=== PATIENT | female | born 1955 | race Caucasian/White ===

== ENCOUNTER → 2016-07-13 | Day surgery (SDC) | payer OTHER ==
[~2016-07-13] VITALS: Ht 157.5 cm; Wt 61.2 kg
[~2016-07-13] MED LIST: ANOR1AER IN; ATOR1TAB18 PO; CELE10TA PO; CELE20TA PO; CITA20TA4 PO; EPINEPHrine 1MG/10ML SYRINGE 1.5IN As Ordered ONE; FOLI1TAB2 PO; FOLI1TAB86 PO; GABA100C PO; GABA300C2 PO; HYDR-3363 PO; LEVALBUTEROL 1.25 MG/0.5 ML CONCENTRATE NEB As Ordered ONE; LEVALBUTEROL 1.25 MG/0.5 ML CONCENTRATE NEB INH ONE; LIDOCAINE 1% MDV 20ML VIAL As Ordered ONE; LIDOCAINE 1% SDV INJ 30 ML VIAL XX ONE; LIDOCAINE 2% INJ 100 MG/5 ML SDV (FOR ANES.) As Ordered ONE; LIDOCAINE 4% TOPICAL SOLN 50 ML BTL As Ordered ONE; LIDOCAINE VISCOUS 2% SOLN 15ML UDC As Ordered ONE; LIDOCAINE VISCOUS 2% SOLN 15ML UDC MT ONE; LR 1,000 ML IV SCH; METOCLOPRAMIDE INJ 10MG/2ML VIAL (J2765) As Ordered ONE; MIDAZOLAM INJ 2 MG/2 ML VIAL (J2250) As Ordered ONE; MULT1CHW26 PO; ONDANSETRON 4MG/2ML VIAL (J2405) As Ordered ONE; ONDANSETRON 4MG/2ML VIAL (J2405) IV PRN; PROPOFOL 200 MG/20 ML VIAL As Ordered ONE; RISP0.5T16 PO; RISP2TAB30 PO; ROCURONIUM BROMIDE 50 MG/5 ML VIAL As Ordered ONE; SUGAMMADEX SODIUM 500 MG/5 ML VIAL (BRIDION) As Ordered ONE; THIA100TA PO; THROMBIN SOLN 20,000 UNITS KIT As Ordered ONE; TRAZ100T2 PO; TRAZ25TA PO; TRAZO50TA PO; VITA100T2 PO; VITMTA OR; dexameTHASONE 4 MG/ML 1ML VIAL (J1100) As Ordered ONE; fentaNYL 100 MCG/2 ML INJECTION (J3010) IV PRN; fentaNYL 250 MCG/5 ML INJECTION (J3010) As Ordered ONE
--- NOTE | 2016-07-13 15:23 | REP ---
Chest x-ray: Portable single view. History: Postoperative evaluation. Comparison study April 20, 2016. Findings: Portable chest x-ray demonstrates a mass in the right suprahilar region unchanged. EKG electrodes are noted. There is no evidence of pneumothorax or hydrothorax. Mitral annular calcification is noted. Heart is not enlarged. Impression: Right suprahilar mass unchanged. No complication is identified. Signed by Jefry Chau MD 07/13/2016 04:23 P
[2016-07-13 16:19] VITALS: BP 135/62
--- NOTE | 2016-07-13 16:20 | RO ---
DATE OF PROCEDURE: 07/13/2016 PREPROCEDURE DIAGNOSIS: Right upper lobe mass, unknown etiology. POSTPROCEDURE DIAGNOSIS: Right upper lobe mass, unknown etiology. PROCEDURE: Electromagnetic Navigation Bronchoscopy (ENB) with fine-needle aspirate, triple brush, single brush, transbronchial biopsies, bronchoalveolar lavage (BAL) and fiducial marker placement. SURGEON: Dr. Guillermo Hardy INSURANCE SALES ASSOCIATE: ANESTHESIA: General. DESCRIPTION OF PROCEDURE: Procedure explained and consent obtained. Ms. Simmons was intubated for the procedure and pain and sedation was handled by anesthesia. The bronchoscope was introduced through the endotracheal tube into the trachea. The right and left lungs were examined. There was a moderate amount of pitting and a small amount of thick, clear secretions which were evacuated. There were changes suggestive of bronchiectasis. Automatic registration was then done. Following this, the ENB probe was used to locate the right upper lobe lesion. The position was confirmed by fluoroscopy. Fine-needle aspirate was then done of the lesion. This was followed by a single brushing, then five transbronchial biopsies, then a triple brushing, then fiducial marker placement and finally a BAL. After assuring visual hemostasis, the bronchoscope was withdrawn. Post-procedure chest x-ray pending. FINDINGS: 1. Moderate amount of pitting. 2. Changes suggestive of bronchiectasis. SPECIMENS: 1. Right upper lobe fine-needle aspirate sent to cytology. 2. Right upper lobe brushing, both single and triple sent to cytology. 3. Five transbronchial biopsies sent to pathology. 4. BAL sent to cytology. [facility]
== END ==
LOC: M SDC 11:29
PROVIDERS: ATTEND Internal Medicine Pulmonary Disease
DX: R91.8 Other nonspecific abnormal finding of lung field (principal); R91.1 Solitary pulmonary nodule; J44.9 Chronic obstructive pulmonary disease, unspecified; R06.00 Dyspnea, unspecified; F32.9 Major depressive disorder, single episode, unspecified; G62.9 Polyneuropathy, unspecified; I10 Essential (primary) hypertension; F20.9 Schizophrenia, unspecified; K74.60 Unspecified cirrhosis of liver; G47.9 Sleep disorder, unspecified; F17.218 Nicotine dependence, cigarettes, with other nicotine-induced disorders; Z79.899 Other long term (current) drug therapy; Z91.041 Radiographic dye allergy status
CPT/HCPCS: 31623; 31624; 31625; 31626; 31627; 31629; 71010; 76000; 88104; 88108; 88172; 88173; 88305; 88313; A4648; J1100; J2250; J2405; J2765; J3010

== ENCOUNTER → 2016-07-14 | Outpatient (REF) | payer OTHER ==
[~2016-07-14] MED LIST changes: -EPINEPHrine 1MG/10ML SYRINGE 1.5IN As Ordered ONE; -LEVALBUTEROL 1.25 MG/0.5 ML CONCENTRATE NEB As Ordered ONE; -LEVALBUTEROL 1.25 MG/0.5 ML CONCENTRATE NEB INH ONE; -LIDOCAINE 1% MDV 20ML VIAL As Ordered ONE; -LIDOCAINE 1% SDV INJ 30 ML VIAL XX ONE; -LIDOCAINE 2% INJ 100 MG/5 ML SDV (FOR ANES.) As Ordered ONE; -LIDOCAINE 4% TOPICAL SOLN 50 ML BTL As Ordered ONE; -LIDOCAINE VISCOUS 2% SOLN 15ML UDC As Ordered ONE; -LIDOCAINE VISCOUS 2% SOLN 15ML UDC MT ONE; -LR 1,000 ML IV SCH; -METOCLOPRAMIDE INJ 10MG/2ML VIAL (J2765) As Ordered ONE; -MIDAZOLAM INJ 2 MG/2 ML VIAL (J2250) As Ordered ONE; -ONDANSETRON 4MG/2ML VIAL (J2405) As Ordered ONE; -ONDANSETRON 4MG/2ML VIAL (J2405) IV PRN; -PROPOFOL 200 MG/20 ML VIAL As Ordered ONE; -ROCURONIUM BROMIDE 50 MG/5 ML VIAL As Ordered ONE; -SUGAMMADEX SODIUM 500 MG/5 ML VIAL (BRIDION) As Ordered ONE; -THROMBIN SOLN 20,000 UNITS KIT As Ordered ONE; -dexameTHASONE 4 MG/ML 1ML VIAL (J1100) As Ordered ONE; -fentaNYL 100 MCG/2 ML INJECTION (J3010) IV PRN; -fentaNYL 250 MCG/5 ML INJECTION (J3010) As Ordered ONE
== END ==
LOC: M LAB REF 12:15
PROVIDERS: ATTEND Physician Assistant
DX: R30.0 Dysuria (principal)

== ENCOUNTER → 2016-07-15 | Outpatient (REF) | payer OTHER ==
[2016-07-15 12:36] LABS: ANION GAP 7 MEQ/L (8-16); BLOOD UREA NITROGEN 10 MG/DL (7-18); CALCIUM LEVEL 9.6 MG/DL (8.5-10.1); CARBON DIOXIDE LEVEL 32 MEQ/L (21-32); CHLORIDE LEVEL 99 MEQ/L (98-107); CREATININE FOR GFR 0.74 MG/DL (0.55-1.02); GLOMERULAR FILTRATION RATE > 60.0 (>51); GLUCOSE, FASTING 87 MG/DL (70-105); POTASSIUM SERUM 4.5 MEQ/L (3.5-5.1); SODIUM LEVEL 138 MEQ/L (136-145)
== END ==
LOC: M LABDRWAD 12:13
PROVIDERS: ATTEND Physician Assistant Medical
DX: R73.9 Hyperglycemia, unspecified (principal)

== ENCOUNTER → 2016-07-28 | Outpatient (REF) | payer OTHER ==
[~2016-07-28] MED LIST changes: +METF500T PO
[2016-07-28 18:21] LABS: INR 0.96
== END ==
LOC: M LAB REF 16:33
PROVIDERS: ATTEND Internal Medicine Medical Oncology
DX: C34.90 Malignant neoplasm of unspecified part of unspecified bronchus or lung (principal)

== ENCOUNTER → 2016-08-02 | Outpatient (CLI) | payer OTHER ==
--- NOTE | 2016-08-03 08:04 | REP ---
Clinical: Neoplasm. Comparison: 03/04/2016. Findings: A multilobulated right upper lobe mass lesion is unchanged in appearance and size when compared to 03/04/2016 again measuring approximately 3.2 cm maximal diameter (images 20 - 29). Minimal fibroatelectatic changes primarily involving the right middle lobe and lingula remains stable. No new acute pulmonary parenchymal consolidation, nodule or mass lesion appreciated. No pleural effusion/reaction or pneumothorax. Tracheobronchial tree is patent. Mediastinum is stable and again demonstrates atherosclerotic changes to the thoracic aorta and coronary arteries without aortic aneurysm, cardiomegaly or pericardial effusion. Limited upper abdomen demonstrates normal bilateral adrenal glands. Impression: 3.2 cm lobulated mass in the right upper lobe unchanged compared to 03/04/2016. No new acute mediastinal or pleuroparenchymal process appreciated. Signed by Reji Dupree MD 08/03/2016 07:56 A
== END ==
LOC: M RAD 17:59
PROVIDERS: ATTEND Thoracic Surgery (Cardiothoracic Vascular Surgery)
DX: C34.11 Malignant neoplasm of upper lobe, right bronchus or lung (principal)

== ENCOUNTER → 2016-08-03 | Outpatient (CLI) | payer OTHER ==
[2016-08-03 11:26] LABS: ABG BASE EXCESS 0.8 (-2.0-2.0); ABG HCO3 25.1 MEQ/L (22.0-26.0); ABG PARTIAL PRESSURE O2 75.1 mmHg (75.0-100.0); ABG STANDARD HCO3 25.1 MEQ/L (22.0-26.0); ABG TOTAL CO2 26.3 MEQ/L (22.0-29.0); ABG pH (ARTERIAL) 7.426 UNITS (7.350-7.450)
[2016-08-03 12:07] LABS: INR 1.07
[2016-08-03 12:09] LABS: ANION GAP 7 MEQ/L (8-16); BLOOD UREA NITROGEN 9 MG/DL (7-18); CARBON DIOXIDE LEVEL 29 MEQ/L (21-32); CHLORIDE LEVEL 100 MEQ/L (98-107); CREATININE FOR GFR 0.63 MG/DL (0.55-1.02); GLOMERULAR FILTRATION RATE > 60.0 (>51); GLUCOSE, FASTING 93 MG/DL (70-105); POTASSIUM SERUM 4.4 MEQ/L (3.5-5.1); SODIUM LEVEL 136 MEQ/L (136-145)
[2016-08-03 12:15] LABS: MEAN CORPUSCULAR HEMOGLOBIN 31.7 pg (27.0-33.0); MEAN CORPUSCULAR HGB CONC 33.9 g/dl (32.0-36.5); MEAN CORPUSCULAR VOLUME 93.4 fl (80.0-96.0); RED CELL DISTRIBUTION WIDTH 13.1 % (11.5-14.5); WHITE BLOOD COUNT 14.2 K/mm3 (4.0-10.0)
--- NOTE | 2016-08-03 12:40 | REP ---
Clinical: Malignant neoplasm. Technique: PA and lateral. Comparison: 07/13/2016. Findings: A small biopsy clip is identified at the site of right suprahilar upper lobe mass which is unchanged. The remainder of lung garcia are clear. No new acute consolidation, effusion or pneumothorax. Cardiac silhouette is normal. Skeletal structures demonstrate age-related changes. Impression: Right upper lobe/suprahilar mass unchanged. Small adjacent clips suggest recent biopsy. Signed by Reji Dupree MD 08/03/2016 12:31 P
--- NOTE | 2016-08-03 22:25 | ECGEPIP ---
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 Electronically Signed On 08-03-2016 22:25:12 EST by Farshad Goncalves
== END ==
LOC: M LAB 10:43
PROVIDERS: ATTEND Thoracic Surgery (Cardiothoracic Vascular Surgery)
DX: Z01.818 Encounter for other preprocedural examination (principal); C34.11 Malignant neoplasm of upper lobe, right bronchus or lung

== ENCOUNTER → 2016-08-04 | Day surgery (SDC) | payer OTHER ==
[~2016-08-04] VITALS: Ht 154.9 cm; Wt 68.0 kg
[~2016-08-04] MED LIST changes: +BUPIVACAINE LIPOSOME/PF 1.3% 20 ML VIAL (13.3MG/ML)(EXPAREL) As Ordered ONE; +BUPIVACAINE LIPOSOME/PF 1.3% 20 ML VIAL (13.3MG/ML)(EXPAREL) XX ONE; +CETACAINE SPRAY 20GM (FLOOR STOCK) As Ordered ONE; +EPINEPHrine 1MG/10ML SYRINGE 1.5IN As Ordered ONE; +HYDROmorphone HCL 1 MG/ML SYRINGE (J1170) IV PRN; +LIDOCAINE 2% INJ 100 MG/5 ML SDV (FOR ANES.) As Ordered ONE; +LR 1,000 ML IV SCH; +MIDAZOLAM INJ 2 MG/2 ML VIAL (J2250) As Ordered ONE; +MUPIROCIN 2% OINT 22 GM TUBE TOP ONE; +PERCOCET 5MG/325MG TAB PO PRN; +PHENYLephrine HCL 500 MCG/5 ML (100MCG/ML) SYRINGE (J2370) As Ordered ONE; +PROPOFOL 200 MG/20 ML VIAL As Ordered ONE; +ROCURONIUM BROMIDE 50 MG/5 ML VIAL As Ordered ONE; +SUGAMMADEX SODIUM 500 MG/5 ML VIAL (BRIDION) As Ordered ONE; +THROMBIN SOLN 20,000 UNITS KIT As Ordered ONE; +THROMBIN SOLN 20,000 UNITS KIT TOP ONE; +ceFAZolin SOD 1 GM in D5W MINI-BAG PLUS 50 ML IV ONE; +dexameTHASONE 4 MG/ML 1ML VIAL (J1100) As Ordered ONE; +ePHEDrine SULFATE 25 MG/5 ML(5MG/ML) SYRINGE As Ordered ONE; +fentaNYL 100 MCG/2 ML INJECTION (J3010) IV PRN; +fentaNYL 250 MCG/5 ML INJECTION (J3010) As Ordered ONE
--- NOTE | 2016-08-04 10:43 | REP ---
Clinical: Postoperative evaluation. Comparison: 08/03/2016. Findings: A single clip is again identified in the right suprahilar region adjacent to known mass. Mediastinum and cardiac silhouette are normal. Lung garcia are otherwise clear/stable. No effusion or pneumothorax. Skeletal structures intact. Impression: Stable chest x-ray. No effusion or pneumothorax. Signed by Reji Dupree MD 08/04/2016 10:35 A
[2016-08-04 11:45] VITALS: BP 132/77
--- NOTE | 2016-08-05 04:42 | RO ---
DATE OF PROCEDURE: 07/15/2016 PREOPERATIVE DIAGNOSIS: Small cell carcinoma right upper lobe, mediastinal lymphadenopathy. POSTOPERATIVE DIAGNOSIS: Small cell carcinoma right upper lobe, mediastinal lymphadenopathy. Final pathology pending. PROCEDURE: Mediastinoscopy, bronchoscopy. SURGEON: Akbar Mullins MD RAND BUTTING MACHINE OPERATOR: ANESTHESIA: FINDINGS: There were quite a number of nodes in the mediastinum, more than I had expected judging from the CAT scan. These were copiously sampled and sent for pathological examination. Upon entry, a large vessel was entered. It was deeper than what I thought the external jugular should be. I am not sure whether it was the internal jugular or not, but nonetheless it was repaired and sewn with a #5-0 Prolene suture. Bronchoscopy revealed normal branching of the tracheobronchial tree. There were no endobronchial lesions. DESCRIPTION OF PROCEDURE: Under satisfactory general anesthesia and single lumen tube endotracheal intubation, the bronchoscope was placed down the tracheobronchial tree. Each segment and subsegment were thoroughly inspected and suctioned aspirated. There were no endobronchial lesions either on the left or right side. The scope was withdrawn and the patient was prepped and draped in the usual sterile fashion. A standard mediastinoscopy incision was done in a suprasternal notch with that undertaken. Subcutaneous tissue was divided. I could feel the trachea deep within the neck as the patient is obese. Dissection was continued with the electrocautery and with blunt dissection. During the dissection with the electrocautery, a large vessel was entered with copious amounts of bleeding, which could be controlled by use of finger pressure. After defining the problem, I thought this probably represented the internal jugular vein. A #5-0 Prolene suture was used to control the tip of the rent in the vein and then with intermittent suction and suture throws the vein could be closed with running #5-0 Prolene suture. The mediastinal dissection was then again undertaken so that I could finally get to the pretracheal fascia. was placed along the pretracheal fascia and on the artery scalp. The scope was then placed. The above findings were noted. There were a lot more nodes that I thought there were going to be. They look anthracotic, however. A copious amount of noelle was taken up and down the trachea. These were sent for pathological examination, including a portion for frozen section, which did not show any tumor. The remainder of the specimens were sent for permanent section. After achieving adequate hemostasis with thrombin and Gelfoam and electrocautery, the strap muscles were closed with running #3-0 Vicryl suture, the subcutaneous tissues were closed with the same and the skin with running #3-0 Monopril subcuticular suture. The patient tolerated the procedure well and left the operating room in satisfactory condition. Estimated blood loss was probably 25-35 mL.
== END ==
LOC: M SDC 07:06
PROVIDERS: ATTEND Thoracic Surgery (Cardiothoracic Vascular Surgery)
DX: C34.11 Malignant neoplasm of upper lobe, right bronchus or lung (principal); R59.0 Localized enlarged lymph nodes; I97.52 Accidental puncture and laceration of a circulatory system organ or structure during other procedure; I10 Essential (primary) hypertension; J44.9 Chronic obstructive pulmonary disease, unspecified; F32.9 Major depressive disorder, single episode, unspecified; G62.9 Polyneuropathy, unspecified; N39.3 Stress incontinence (female) (male); M79.606 Pain in leg, unspecified; R42 Dizziness and giddiness; F20.0 Paranoid schizophrenia; F17.210 Nicotine dependence, cigarettes, uncomplicated; Z79.899 Other long term (current) drug therapy; Z79.51 Long term (current) use of inhaled steroids; Z79.84 Long term (current) use of oral hypoglycemic drugs
CPT/HCPCS: 31622; 36415; 39402; 71010; 86850; 86900; 86901; 88305; 88342; J0690; J1100; J2250; J2370; J3010

== ENCOUNTER → 2016-08-09 | Outpatient (CLI) | payer OTHER ==
[~2016-08-09] MED LIST changes: -BUPIVACAINE LIPOSOME/PF 1.3% 20 ML VIAL (13.3MG/ML)(EXPAREL) As Ordered ONE; -BUPIVACAINE LIPOSOME/PF 1.3% 20 ML VIAL (13.3MG/ML)(EXPAREL) XX ONE; -CETACAINE SPRAY 20GM (FLOOR STOCK) As Ordered ONE; -EPINEPHrine 1MG/10ML SYRINGE 1.5IN As Ordered ONE; -HYDROmorphone HCL 1 MG/ML SYRINGE (J1170) IV PRN; -LIDOCAINE 2% INJ 100 MG/5 ML SDV (FOR ANES.) As Ordered ONE; -LR 1,000 ML IV SCH; -MIDAZOLAM INJ 2 MG/2 ML VIAL (J2250) As Ordered ONE; -MUPIROCIN 2% OINT 22 GM TUBE TOP ONE; -PERCOCET 5MG/325MG TAB PO PRN; -PHENYLephrine HCL 500 MCG/5 ML (100MCG/ML) SYRINGE (J2370) As Ordered ONE; -PROPOFOL 200 MG/20 ML VIAL As Ordered ONE; -ROCURONIUM BROMIDE 50 MG/5 ML VIAL As Ordered ONE; -SUGAMMADEX SODIUM 500 MG/5 ML VIAL (BRIDION) As Ordered ONE; -THROMBIN SOLN 20,000 UNITS KIT As Ordered ONE; -THROMBIN SOLN 20,000 UNITS KIT TOP ONE; -ceFAZolin SOD 1 GM in D5W MINI-BAG PLUS 50 ML IV ONE; -dexameTHASONE 4 MG/ML 1ML VIAL (J1100) As Ordered ONE; -ePHEDrine SULFATE 25 MG/5 ML(5MG/ML) SYRINGE As Ordered ONE; -fentaNYL 100 MCG/2 ML INJECTION (J3010) IV PRN; -fentaNYL 250 MCG/5 ML INJECTION (J3010) As Ordered ONE
--- NOTE | 2016-08-09 09:13 | REP ---
TWO-VIEW CHEST: Two views of the chest are performed and compared to a prior study of 08/04/2016 as well as other prior exams. The right upper lobe mass is again see with adjacent metallic clip. No new parenchymal opacities are seen. The heart is normal in size and there is some calcification of the thoracic aorta. The mediastinal silhouette is unchanged. There are degenerative changes of the spine. There is no pneumothorax or pleural effusion identified. IMPRESSION: Stable exam. Signed by Logan Murphy MD 08/09/2016 04:54 P
== END ==
LOC: M SMT 08:21
PROVIDERS: ATTEND Thoracic Surgery (Cardiothoracic Vascular Surgery)
DX: C34.11 Malignant neoplasm of upper lobe, right bronchus or lung (principal)

== ENCOUNTER → 2016-08-18 | Day surgery (SDC) | payer OTHER ==
[~2016-08-18] MED LIST changes: +BUPIVACAINE LIPOSOME/PF 1.3% 20 ML VIAL (13.3MG/ML)(EXPAREL) As Ordered ONE; +HEPARIN SOD (PORCINE) 5000 UNITS/ML VIAL As Ordered ONE; +LIDOCAINE 1% MDV 20ML VIAL As Ordered ONE; +MIDAZOLAM INJ 2 MG/2 ML VIAL (J2250) As Ordered ONE; +MUPIROCIN 2% OINT 22 GM TUBE TOP ONE; +PHENYLephrine HCL 500 MCG/5 ML (100MCG/ML) SYRINGE (J2370) As Ordered ONE; +PROPOFOL 200 MG/20 ML VIAL As Ordered ONE; +ceFAZolin SOD 1 GM in D5W MINI-BAG PLUS 50 ML IV ONE; +ePHEDrine SULFATE 25 MG/5 ML(5MG/ML) SYRINGE As Ordered ONE; +fentaNYL 100 MCG/2 ML INJECTION (J3010) As Ordered ONE
--- NOTE | 2016-08-18 09:58 | REP ---
Chest x-ray: Two views. History: Saheio-K-Lcig. Comparison chest x-ray August 09, 2016. Findings: There is a mass in the right upper lobe of the lung measuring approximately 3.4 cm again noted. There is a needle biopsy marker clip at the inferior aspect of this mass as before. There are two clips at the suprasternal notch as well suggesting previous mediastinoscopy. The lungs are otherwise well inflated and clear. Heart is not enlarged. There are mild degenerative changes in the thoracic spine. There are subtle posttraumatic deformities of the left ribcage unchanged. The thoracic aorta is calcific. Impression: Right upper lobe lung mass. Surgical clips. No other evidence of active disease. Signed by Jefry Chau MD 08/18/2016 12:25 P
[2016-08-18 12:45] VITALS: BP 135/75
--- NOTE | 2016-08-18 13:01 | REP ---
C-ARM VIEWS OF THE CHEST: Two C-arm views of the chest are performed. Left subclavian central venous catheter is noted. 38 seconds of fluoroscopy time was utilized. Signed by Logan Murphy MD 08/19/2016 04:36 P
--- NOTE | 2016-08-18 13:08 | REP ---
CHEST, ONE VIEW: HISTORY: Bukvuj-A-Dqyn insertion. COMPARISON: 9:26 a.m., 08/18/2016. A 3.4 cm parenchymal mass is present in the right upper lobe. The left lung is clear. The heart is normal in size. A Nafrwg-J-Lqqy catheter is present in the superior vena cava. There is no pneumothorax. IMPRESSION: The patient is status post Aqxgwq-N-Qpsg catheter placement. There is no pneumothorax. Signed by Berto Hough MD 08/18/2016 01:21 P
--- NOTE | 2016-08-19 10:42 | RO ---
DATE OF PROCEDURE: 08/18/2016 PREPROCEDURE DIAGNOSIS: Small cell carcinoma, need for vascular access for chemotherapy. POSTPROCEDURE DIAGNOSIS: Small cell carcinoma, need for vascular access for chemotherapy. PROCEDURE: Insertion of left subclavian Vbvnxi-A-Ocgf. SURGEON: Dr. Akbar Mullins WAGE CONCILIATOR: ANESTHESIA: FINDINGS: All contours were smooth at the end of the procedure. Catheter was placed with fluoroscopic control at the junction of the superior vena cava and the right atrium. PROCEDURE: Under satisfactory MAC anesthesia, the patient was prepped and draped in the usual sterile fashion. The left infraclavicular fossa was infiltrated with Exparel. The subclavian vein was found on the first pass and a wire was placed. Wire placement was confirmed with fluoroscopy. An incision approximately 2 cm below the infraclavicular fossa was then made for the port. This was cut and carried into the subcutaneous tissue. A subcutaneous pocket was then constructed by use of both sharp electrocautery and blunt dissection. The wire site was then dilated and a peel away introducer was placed. The catheter was placed low numbers down into the right atrium. A tunnel was then created and this was pulled through the tunnel. The catheter was then positioned under fluoroscopic control. The catheter was cut to an appropriate size, collar was placed and connected to the Aebujs-S-Xxcl. The Eurrmk-W-Vwim was aspirated and flushed without difficulty. The Dafmrg-O-Ofsh was then secured to the chest wall with two #2-0 silk sutures. Final films showed all contours to be smooth and the catheter in appropriate position. The incision was closed with running #3-0 Vicryl for the subcutaneous tissue and running #4-0 Monocryl suture for the skin subcuticular. The patient tolerated the procedure well and left the operating room in satisfactory condition for the recovery room. SHALA
== END ==
LOC: M SDC 08:46
PROVIDERS: ATTEND Thoracic Surgery (Cardiothoracic Vascular Surgery)
DX: C34.11 Malignant neoplasm of upper lobe, right bronchus or lung (principal); J44.9 Chronic obstructive pulmonary disease, unspecified; F20.0 Paranoid schizophrenia; F32.9 Major depressive disorder, single episode, unspecified; I10 Essential (primary) hypertension; G62.9 Polyneuropathy, unspecified; K76.0 Fatty (change of) liver, not elsewhere classified; E78.00 Pure hypercholesterolemia, unspecified; E11.9 Type 2 diabetes mellitus without complications; M79.669 Pain in unspecified lower leg; M19.90 Unspecified osteoarthritis, unspecified site; N39.3 Stress incontinence (female) (male); F17.218 Nicotine dependence, cigarettes, with other nicotine-induced disorders; Z79.899 Other long term (current) drug therapy; Z79.51 Long term (current) use of inhaled steroids; Z79.84 Long term (current) use of oral hypoglycemic drugs
CPT/HCPCS: 36415; 36561; 71010; 71020; 76000; 81001; 86850; 86900; 86901; 99156; 99157; C1788; J0690; J2250; J2370; J3010

== ENCOUNTER → 2016-09-08 | Outpatient (CLI) | payer OTHER ==
[~2016-09-08] MED LIST changes: -BUPIVACAINE LIPOSOME/PF 1.3% 20 ML VIAL (13.3MG/ML)(EXPAREL) As Ordered ONE; -HEPARIN SOD (PORCINE) 5000 UNITS/ML VIAL As Ordered ONE; -LIDOCAINE 1% MDV 20ML VIAL As Ordered ONE; -MIDAZOLAM INJ 2 MG/2 ML VIAL (J2250) As Ordered ONE; -MUPIROCIN 2% OINT 22 GM TUBE TOP ONE; -PHENYLephrine HCL 500 MCG/5 ML (100MCG/ML) SYRINGE (J2370) As Ordered ONE; -PROPOFOL 200 MG/20 ML VIAL As Ordered ONE; -ceFAZolin SOD 1 GM in D5W MINI-BAG PLUS 50 ML IV ONE; -ePHEDrine SULFATE 25 MG/5 ML(5MG/ML) SYRINGE As Ordered ONE; -fentaNYL 100 MCG/2 ML INJECTION (J3010) As Ordered ONE
--- NOTE | 2016-09-08 09:59 | REP ---
Clinical: Alcoholic liver disease. Technique: Real time aguilera scale and color evaluation using curved array transducer. Findings: The liver is increased in echogenicity with poor through transmission suggesting fatty infiltration. Subcentimeter cyst in the left lobe is identified. No further focal hepatic lesions are appreciated. Limited evaluation the pancreas is unremarkable. The gallbladder demonstrates normal wall thickness and no pericholecystic fluid with suggestions for adenomyomatosis and 5 mm gallstone versus polyp at the fundus. No biliary ductal dilatation is appreciated and the common bile duct measures 6.2 mm diameter. Right kidney is normal in reniform shape and echogenicity without hydronephrosis and measures 12.5 x 4.5 x 4.3 cm. No ascites. Impression: 1. Fatty infiltration to the liver with subcentimeter simple cyst in the left lobe. 2. Gallbladder demonstrates benign adenomyomatosis and 5 mm gallstone versus polyp at the fundus without evidence for acute cholecystitis or biliary ductal dilatation. Signed by Reji Dupree MD 09/08/2016 09:51 A
== END ==
LOC: M RAD 07:47
PROVIDERS: ATTEND Family Medicine
DX: K70.9 Alcoholic liver disease, unspecified (principal); K80.20 Calculus of gallbladder without cholecystitis without obstruction

== ENCOUNTER → 2016-09-20 | Outpatient (CLI) | payer OTHER ==
--- NOTE | 2016-09-20 16:30 | REP ---
CT of the chest without IV contrast: Comparisons are the chest CT dated 08/02 2016 and PET scan dated 06/02/2016. The patient has a known right upper lobe mass. The mass has significantly decreased in size, today maximally measuring 1.8 cm (previously 3.2 cm. There are no other lung masses. There are no acute infiltrates or effusions. There is no mediastinal adenopathy. There is no axillary adenopathy. This is unchanged. In the absence of IV contrast the study is insensitive for hilar adenopathy. There is an indwelling central venous catheter entering from the left with the tip in the superior vena cava in satisfactory location as an interval change. The thoracic aorta is unremarkable. Cardiac size is normal. There is no pericardial effusion. The visualized upper abdominal contents are unremarkable. The adrenals are not visualized in entirety, however the visualized portions of the adrenals are unremarkable. Impression: The patient's known right upper lobe mass has significantly decreased in size. There is no adenopathy. No infiltrates or effusions. No other masses or nodules. There is a new indwelling central venous catheter. Signed by Logan Bishop MD 09/20/2016 04:21 P
== END ==
LOC: M RAD 15:40
PROVIDERS: ATTEND Nurse Practitioner Family
DX: C34.90 Malignant neoplasm of unspecified part of unspecified bronchus or lung (principal)

== ENCOUNTER 2016-10-24 11:39 | Emergency (ER) | payer OTHER ==
[~2016-10-24] VITALS: Ht 157.5 cm; Wt 60.8 kg
[2016-10-24] MEDS ORDERED: NS 500 ML IV ONE (12:15)
[2016-10-24 12:32] LABS: BASO # 0.1 K/mm3 (0.0-0.2); BASO % 0.4 % (0.0-1.0); EOS % 0.2 % (0.0-3.0); LARGE UNSTAINED CELL # 0.3 K/mm3 (0.0-0.4); LARGE UNSTAINED CELL % 1.7 % (0.0-4.0); LYMPH # 2.9 K/mm3 (1.5-4.5); LYMPH % 14.6 % (24.0-44.0); MEAN CORPUSCULAR HEMOGLOBIN 31.3 pg (27.0-33.0); MEAN CORPUSCULAR HGB CONC 32.5 g/dl (32.0-36.5); MEAN CORPUSCULAR VOLUME 96.1 fl (80.0-96.0); MONO % 5.5 % (0.0-5.0); NEUTROPHILS # 13.9 K/mm3 (1.8-7.7); NEUTROPHILS % 77.7 % (36.0-66.0); PLATELET COUNT, AUTOMATED 230 k/mm3 (150-450); RED CELL DISTRIBUTION WIDTH 19.8 % (11.5-14.5); WHITE BLOOD COUNT 17.8 K/mm3 (4.0-10.0)
--- NOTE | 2016-10-24 13:40 | REP ---
CT BRAIN WITHOUT CONTRAST: CT brain is performed without IV contrast. Comparison 03/04/2016. There is mild atrophy. There is no midline shift. There are mild patchy low density areas in the periventricular white matter bilaterally as seen on prior study compatible with mild chronic small vessel ischemic changes. I see no acute intracranial hemorrhage. There is no extra-axial fluid collection. No skull fracture is seen. There are vascular calcifications in the carotid siphons. IMPRESSION: Chronic changes appear stable. No evidence of acute bleed or fracture. Signed by Logan Murphy MD 10/24/2016 07:57 P
[2016-10-24 13:50] LABS: ALBUMIN 3.6 GM/DL (3.2-5.2); ALKALINE PHOSPHATASE 152 U/L (45-117); ALT/SGPT 18 U/L (12-78); ANION GAP 10 MEQ/L (8-16); AST/SGOT 11 U/L (15-37); BILIRUBIN,DIRECT 0.2 MG/DL (0.0-0.2); BILIRUBIN,TOTAL 0.5 MG/DL (0.2-1.0); BLOOD UREA NITROGEN 7 MG/DL (7-18); CALCIUM LEVEL 8.4 MG/DL (8.5-10.1); CARBON DIOXIDE LEVEL 25 MEQ/L (21-32); CHLORIDE LEVEL 100 MEQ/L (98-107); CREATININE FOR GFR 0.57 MG/DL (0.55-1.02); GLOMERULAR FILTRATION RATE > 60.0 (>51); GLUCOSE, FASTING 104 MG/DL (70-105); POTASSIUM SERUM 3.8 MEQ/L (3.5-5.1); SODIUM LEVEL 135 MEQ/L (136-145); TOTAL PROTEIN 7.2 GM/DL (6.4-8.2)
--- NOTE | 2016-10-24 13:57 | REP ---
CHEST, TWO VIEWS: Two views of the chest are performed and compared to prior study of 08/18/2016. Previously noted right upper lobe mass has decreased in size. There is no acute infiltrate. Heart is normal in size. There is calcification of the thoracic aorta. Left central venous catheter is seen with the tip in the superior vena cava. There are degenerative changes of the spine. IMPRESSION: No acute infiltrate. Previously noted right upper lobe mass has decreased in size. Signed by Logan Murphy MD 10/24/2016 07:57 P
[2016-10-24 14:34] LABS: METHADONE URINE NEGATIVE (NEGATIVE)
[2016-10-24 14:44] VITALS: BP 136/70
--- NOTE | 2016-10-26 10:42 | ECGEPIP ---
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
== END 2016-10-24 15:17 | disposition home or self-care (01) ==
LOC: M ED 12:40
DX: R55 Syncope and collapse (principal); G43.909 Migraine, unspecified, not intractable, without status migrainosus; C34.90 Malignant neoplasm of unspecified part of unspecified bronchus or lung; F17.200 Nicotine dependence, unspecified, uncomplicated; Z79.899 Other long term (current) drug therapy

== ENCOUNTER → 2016-11-03 | Outpatient (CLI) | payer OTHER ==
--- NOTE | 2016-11-03 13:57 | REP ---
Clinical: Small cell lung cancer for restaging. Comparison: 09/20/2016. Findings: The patient is noted to be status post subsequent chemotherapy after in the comparison study. A surgical clip is identified adjacent to a right upper lobe bronchus just below the noted area of mass lesion and current examination demonstrates decreased soft tissue measuring at most 10.4 x 7.0 mm and previously measured at approximately 15 x 9 mm at the same level. The remainder of the lung garcia are well-aerated, symmetric and clear minimal scarring to the medial right middle lobe is again identified. No new area of consolidation, nodule or mass lesion is appreciated. No pleural effusion/reaction or pneumothorax. The tracheobronchial tree is patent. The mediastinum is stable with atherosclerotic changes to the thoracic aorta and coronary arteries again noted. There is no cardiomegaly or pericardial effusion. Wuvved-P-Cphn identified in the left anterior chest wall extends into the SVC. No obvious adenopathy is appreciated. The surrounding musculoskeletal structures demonstrate age-related degenerative changes. Limited evaluation of the upper abdomen suggests left renal cysts. Impression: 1. Improved appearance to the residual soft tissue at the site of prior intervention in the right upper lobe. No new acute mass, nodule or consolidation. No obvious adenopathy. No effusion. 2. Suspected left renal cysts. Signed by Reji Dupree MD 11/03/2016 01:48 P
== END ==
LOC: M RAD 12:53
PROVIDERS: ATTEND Nurse Practitioner Family
DX: C34.90 Malignant neoplasm of unspecified part of unspecified bronchus or lung (principal)

== ENCOUNTER → 2016-11-29 | Outpatient (CLI) | payer MEDICAID | LOC: M RAD 14:50 | PROVIDERS: ATTEND Radiology Radiation Oncology | DX: C34.11 Malignant neoplasm of upper lobe, right bronchus or lung (principal) | CPT/HCPCS: 70553; A9576 ==

== ENCOUNTER → 2016-11-30 | Outpatient (CLI) | payer MEDICAID | LOC: M RAD 17:57 | PROVIDERS: ATTEND Radiology Radiation Oncology | DX: C34.11 Malignant neoplasm of upper lobe, right bronchus or lung (principal) ==

== ENCOUNTER → 2017-02-28 | Outpatient (CLI) | payer OTHER ==
[~2017-02-28] MED LIST changes: -ANOR1AER IN; +ANOR1AER INH; -ATOR1TAB18 PO; +ATOR80TA59 PO; +CITA10TA5 PO; -FOLI1TAB2 PO; +FOLI1TAB4 PO; -METF500T PO; +METF500T13 PO; +PATIENT COMMENT; -RISP0.5T16 PO; +RISP0.5T21 PO; +RISP1TAB3 PO; -RISP2TAB30 PO; +RISP2TAB32 PO
--- NOTE | 2017-02-28 16:33 | REP ---
CT of the chest with IV contrast: Comparison is the most recent prior study of 11/30/2016. The patient has a history right upper lobe lung carcinoma. The focal zone of spiculation and peribronchial thickening in the apex of the right lung previously has slightly increased in size. Additionally' there are multifocal ground-glass densities throughout the right upper lobe and to a lesser stent in the right middle lobe and lower lobe and to a lesser extent in the left lung. This is a change from the prior study is nonspecific. Multifocal pneumonia versus metastatic disease or some primary diagnostic considerations. There are no pleural effusions. There is no mediastinal or axillary adenopathy. In the absence of IV contrast the study is insensitive for hilar adenopathy. The unenhanced thoracic aorta is unremarkable. Cardiac size is normal. There is no pericardial effusion. In the upper abdomen. There are focal areas of geographic hepato steatosis as an interval change. The visualized portions of the gallbladder, pancreas and spleen are unremarkable. There is no adrenal mass. Impression: Multifocal ground-glass densities are identified, particularly in the right upper lobe as described in the body of the report as a distinct change from the prior study, nonspecific, multifocal pneumonia versus metastatic disease. The focal spiculated lesion in the apex of the right lung has slightly increased in thickness. There are no pleural effusions. No adenopathy. Geographic hepato steatosis as an interval change. Signed by Logan Bishop MD 02/28/2017 04:24 P
== END ==
LOC: M RAD 15:03
PROVIDERS: ATTEND Internal Medicine Medical Oncology
DX: C34.90 Malignant neoplasm of unspecified part of unspecified bronchus or lung (principal)

== ENCOUNTER 2017-03-01 12:27 | Inpatient (IN) | payer OTHER ==
[~2017-03-01] VITALS: Ht 152.4 cm; Wt 54.7 kg
[~2017-03-01 12:27] MED LIST changes: -CITA10TA5 PO; -PATIENT COMMENT; -RISP1TAB3 PO
[2017-03-01 13:47] LABS: MEAN CORPUSCULAR HEMOGLOBIN 33.3 pg (27.0-33.0); MEAN CORPUSCULAR HGB CONC 35.7 g/dl (32.0-36.5); MEAN CORPUSCULAR VOLUME 93.4 fl (80.0-96.0); RED CELL DISTRIBUTION WIDTH 15.3 % (11.5-14.5)
[2017-03-01 14:13] LABS: ALBUMIN 3.3 GM/DL (3.2-5.2); ALBUMIN/GLOBULIN RATIO 0.89 (1.00-1.93); ALKALINE PHOSPHATASE 102 U/L (45-117); ALT/SGPT 37 U/L (12-78); ANION GAP 11 MEQ/L (8-16); AST/SGOT 38 U/L (15-37); BILIRUBIN,DIRECT 0.2 MG/DL (0.0-0.2); BILIRUBIN,TOTAL 0.6 MG/DL (0.2-1.0); BLOOD UREA NITROGEN 8 MG/DL (7-18); CALCIUM LEVEL 8.7 MG/DL (8.8-10.2); CARBON DIOXIDE LEVEL 29 MEQ/L (21-32); CHLORIDE LEVEL 88 MEQ/L (98-107); CREATININE FOR GFR 0.48 MG/DL (0.55-1.02); GLOMERULAR FILTRATION RATE > 60.0 (>45); GLUCOSE, FASTING 112 MG/DL (80-110); POTASSIUM SERUM 4.3 MEQ/L (3.5-5.1); SODIUM LEVEL 128 MEQ/L (136-145)
[2017-03-01] MEDS ORDERED: ACETAMINOPHEN TAB 650MG DOSE (2X325MG) PO ONE (15:30)
[2017-03-01] MEDS ORDERED: THIAMINE 100 MG TAB PO ONE (16:15)
[2017-03-01 16:56] LABS: METHADONE URINE NEGATIVE (NEGATIVE)
[2017-03-01] MEDS ORDERED: ONDANSETRON 4MG/2ML VIAL (J2405) As Ordered ONE (17:51)
[2017-03-01] MEDS ORDERED: ONDANSETRON 4MG/2ML VIAL (J2405) IV ONE (18:00)
[2017-03-01] MEDS ORDERED: PATIENT COMMENT (18:14)
[2017-03-01] MEDS ORDERED: CITA10TA5 PO (18:14)
[2017-03-01] MEDS ORDERED: RISP1TAB3 PO (18:14)
[2017-03-01] MEDS ORDERED: AMIODARONE HCL 150 MG in APPROPRIATE DILUENT 1 EA IV STA (19:12)
[2017-03-01] MEDS ORDERED: NS 500 ML IV ONE (19:15)
[2017-03-01] MEDS ORDERED: MAG SULF 1GM/100ML (MAG RUN) 1 GM in APPROPRIATE DILUENT 1 EA IV ONE (19:15)
[2017-03-01 20:01] LABS: MAGNESIUM LEVEL 2.2 MG/DL (1.8-2.4)
[2017-03-01] MEDS ORDERED: LORazepam 2 MG TAB PO PRN (20:30)
--- NOTE | 2017-03-01 22:31 | ECGEPIP ---
Stationary ECG Study [facility] Test Date: 2017-03-01 Pat Name: DOMINIK COLVIN Department: Room: - Gender: F Clinic Nurse: : 1955 Requested By: YOUSIF Syed Order Number: [id number] Reading MD: Nagi Cedillo Measurements Intervals [place] Rate: 102 P: 79 NC: 125 QRS: 45 QRSD: 76 T: 55 QT: 321 QTc: 420 Interpretive Statements Sinus tachycardia with short NC interval Right atrial enlargement Low QRS complex voltage in the limb leads Nonspecific ST-T wave abnormalities Pulmonary disease Compared to prior tracing of 10/24/2016, heart rate is faster Electronically Signed On 03-01-2017 22:30:50 EDT by Nagi Cedillo
[2017-03-01 23:41] VITALS: BP 91/65
[2017-03-02] VITALS (12 sets, daily range): BP systolic 70–105; BP diastolic 50–65
[2017-03-02] MEDS ORDERED: OXAZEPAM 10 MG CAP PO SCH
[2017-03-02] MEDS: NS 1,000 ML IV SCH ×4 (00:21→20:39)
--- NOTE | 2017-03-02 00:40 | REP ---
CT of the cervical spine: Axial images are acquired helical scanning and a reformatted sagittal coronal projections. The skull base, C1 and C2 are unremarkable. Vertebral body heights and alignment are normal. There is degenerative disc flow disease at every cervical spine level. There are bridging and superior osteophytes throughout the cervical spine. The facet articulations are unremarkable. The prevertebral soft tissues are normal. There are vascular atheromatous calcifications in the carotid arteries bilaterally. There are no posterior element fractures. There is facet osteoarthritis. Impression: There is no fracture or listhesis. There is multilevel degenerative disc disease and facet osteoarthritis. Signed by Logan Bishop MD 03/01/2017 05:15 P
--- NOTE | 2017-03-02 00:40 | REP ---
CT of the brain without IV contrast: Comparison is 09/11/2013. There is no subdural or epidural hematoma. There is no intraparenchymal or subarachnoid hemorrhage. There is no edema, mass effect or midline shift. Cortical stripe is unremarkable. There is mild enlargement of the ventricles and sulci compatible with diffuse volume loss. The visualized paranasal sinuses and mastoid air cells are clear. Impression: Essentially negative CT study of the brain except for diffuse volume loss. There is no hemorrhage, acute infarct or mass. No subdural hematoma. Signed by Logan Bishop MD 03/01/2017 05:11 P
--- NOTE | 2017-03-02 00:44 | REP ---
Portable chest, 07:23 p.m., single AP view, patient sitting: Comparisons are the plain film studies of 10/24/2078, 08/03/[address] dated 02/28/2017. On the portable study today there are no infiltrates or effusions. The multifocal ground-glass densities identified on the 02/28/2017 CT are not visible on the portable plain film study today. . The patient has a history of lung carcinoma and right upper lobe mass. There is a tiny surgical clip in the location of previous mass. This mass is not identified on the plain film study today. There is a tunneled indwelling Qcfvmj-E-Nldy catheter entering from left with the tip in the superior vena cava, unchanged from 10/24/2016. Cardiac size is normal. The mauri, mediastinum, and bony thorax are unremarkable. Impression: There are no acute cardiopulmonary findings in this plain film portable study. The multifocal ground-glass densities identified on the chest CT performed yesterday are not visible on the portable plain film study today . Signed by Logan Bishop MD 03/01/2017 07:47 P
--- NOTE | 2017-03-02 02:06 | HPEPDOC ---
Medical History and Physical History and Physical Primary care provider: Dr. Eduin GILBERT Oncologist: Dr. Banuelos is medical oncologist, Dr. Tejeda is radiation oncologist in [place] Date of Admission: 03/01/2017 Attending: Dr. Clotilde Lay CHIEF COMPLAINT: Altered mental status HISTORY OF PRESENT ILLNESS: Ms. Simmons was brought into the emergency department by her daughter because apparently the patient was "speaking nonsense". The patient is a 61-year-old female who has a long history of being an alcoholic, she states that she currently drinks approximately a 12 pack of beer per day. Her daughter is in the room with her this evening, and provides most of the history. She calls her checks in on her every couple of days, and she can tell when she is drunk and slurring her words, however this time she was not slurring her words, but was rather speaking nonsense, therefore she was concerned about her confused state and brought her into the emergency department for further evaluation. In addition to this, apparently the patient has fallen multiple times over the past few months, and she is quite unsteady on her feet needing to hold onto the wall or other objects in her home just to get around the house. She does not use a cane or walker. Apparently she has not taken any medications at all for the past 4 months either. Oddly enough the patient is awake and alert, she does appropriately identify herself, her daughterPipe today, the year, the month, and her location, but when asked additional questions, she will often answer in a nonsensical manner that has no relation to the question asked. Neither the daughter nor the patient and believes that she has been eating well, she lives at home alone, she does not go out much, she obtains her beer from her neighbor. ALLERGIES: No known drug allergies PAST MEDICAL HISTORY: Type 2 diabetes mellitus Depression Neuropathy Small cell carcinoma of the right lung chemotherapy and radiation performed earlier this year Hepatosteatosis (liver ultrasound 09/2015) PAST SURGICAL HISTORY: Appendectomy Partial hysterectomy Tonsils SOCIAL HISTORY: Lives at home alone, smokes 1-2 packs per day for the past 40+ years. She drinks approximately a 12 pack of beer a day, her last drink was earlier this morning. She denies any recreational drug use FAMILY HISTORY: Father had COPD, mother had a heart attack, she had 4 brothers, 4 sisters, and 2 children, all of whom are healthy. 2 of her brothers in a motor vehicle accident. REVIEW OF SYSTEMS: Constitutional: Patient denies fevers, chills, night sweats, recent weight gain/ loss. HEENT: Patient admits to blurred vision, but denies transient visual disturbances, postnasal drip, epistaxis, sore throat, difficulty chewing or swallowing food. She has not worn her dentures in some time. Cardiovascular: Patient denies chest discomfort/pain, palpitations, exertional dyspnea, orthopnea, edema of the extremities, claudication. Respiratory: Patient denies dyspnea, wheezing, cough, hemoptysis, sputum production. Gastrointestinal: Patient denies nausea, vomiting, diarrhea, constipation, abdominal pain, melena, hematochezia, hematemesis, jaundice. PHYSICAL EXAMINATION: Vitals: Temperature 97.6, pulse 102, respiratory rate 24, blood pressure 91/65, pulse ox 92% on 2 L nasal cannula General: Awake, alert, oriented 3, however she is slow to respond, and while she does answer appropriately to identify person place and time, she does not answer all questions appropriately. HEENT: Head normocephalic atraumatic, pupils equally reactive to light and accommodation, conjunctiva are pink, sclera are nonicteric, buccal mucosa is pink and moist with no lesions in the oropharynx. She is edentulous. Hearing is grossly intact to conversation. Respiratory: Clear to auscultation bilaterally with no wheezes, rales, or rhonchi. Cardiovascular: Perhaps tachycardic, with no rubs, gallops, or murmur. Abdomen: Soft, nontender, nondistended, no hepatosplenomegaly appreciated. Bowel sounds present. There are no signs of telangiectasias or jaundice. No asterixis. No tremor. Extremities: 2+ pulses in the radial and dorsalis pedis bilaterally. No evidence of clubbing or cyanosis. Neuro: She does have a very mild ataxia on finger to nose as well as heel-to- eng. Muscle strength is 5 out of 5 throughout. Extraocular movements are intact , she has no focal weakness. She does complain of chronic numbness in her feet, but no new or additional symptoms. ELECTROCARDIOGRAM: Sinus tachycardia with short SC interval, right atrial enlargement, low QRS complex voltage in the limb leads, nonspecific ST-T wave abnormalities, pulmonary disease. While in the emergency department she did have an approximately 7-8 seconds of nonsustained ventricular tachycardia IMAGING: CT of the head and neck revealed diffuse atrophy, and arthritis, however no acute fracture, dislocation, or other injury. Chest x-ray does not show the groundglass opacities that were shown on yesterday's CT scan, it appears improved from prior in regards to her right lung mass. Please see report for further details. ASSESSMENT/PLAN: 1. Altered mental status: Due to Acute metabolic encephalopathy. This is likely multifactorial in nature, she has chronic alcoholism, hyponatremia, poor nutrition, and history of psychiatric disease. Plan as outlined below. 2. Hyponatremia: Given her history, it is likely that she has beer potomania, however with history of poor oral intake could also be depletional. In the setting of lung cancer, SIADH may also be on the differential. Serum and urine sodium, creatinine, osmolality and a serum uric acid have been ordered to further delineate the etiology of her hyponatremia. She is already received a 500 mL bolus of normal saline in the emergency department, and given the fact that she is a very small lady I will continue her on 80 mL per hour and recheck a BMP later this evening to see how she is correcting. 3. Gait instability: As she is unable to ambulate in the ED, she definitely will merit evaluation from physical therapy. Her neurological findings on physical exam would indicate that she perhaps has some mild cerebellar injury. I was not present when they attempted to walk her. 4. Chronic alcoholism: We will use the CIWA protocol for prevention of delirium tremens. She was administered thiamine, folate, and a multivitamin in the emergency department, and these will be continued. She will be on scheduled serax. 5. Diabetes mellitus type 2. Her most recent visit with her primary care provider was in August 2016, and at that time she was discontinued from metformin because of intolerable GI side effects, therefore she was only diet controlled. We will recheck a hemoglobin A1c. 6. Depression: She is supposed to be taking Celexa 20 mg daily, Risperidone 1 mg daily, and trazodone 50 mg daily at bedtime, but she has not been on any medications for the past 4 months. These are [facility]. I do not want to complicate the matter regarding her altered mental status, therefore we will treat her hyponatremia first before adding on any psychotropic medications. 7.Small cell Lung cancer : Finished chemotherapy earlier this year and received radiation in [place]. Follows with Wendy Banuelos, Had CT chest just day prior to admission which showed new ground glass opacities in the right lung could be pneumonia or metastasis. In view of absence of any fever or cough , elevated white count. or other symptoms or signs of pneumonia I really think it is metastasis so will not give any antibiotics. However if spikes temperature will treat for pneumonia. My preceptor for this patient encounter was physically present in the building during the encounter and was fully available. As needed, all aspects of the patient interview, examination, medical decision making process, and medical care plan development were reviewed and approved by the preceptor. Preceptor is aware and concurs with the plan as stated in the body of this note and will attest to such by his/her cosignature. Vital Signs Vital Signs Date Time Temp Pulse Resp B/P (MAP) Pulse Ox O2 Delivery O2 Flow Rate FiO2 03/02/17 00:00 104 91/65 03/01/17 23:41 97.6 24 92 Nasal Cannula 2.0 Laboratory Data Labs 24H Laboratory Tests 2 03/01/17 13:24: Anion Gap 11, Glomerular Filtration Rate > 60.0, Uric Acid 8.0H, Calcium Level 8.7L, Magnesium Level 2.2, Aspartate Amino Transf (AST/SGOT) 38H, Alanine Aminotransferase (ALT/SGPT) 37, Alkaline Phosphatase 102, Total Bilirubin 0.6, Direct Bilirubin 0.2, Total Creatine Kinase 366H, Creatine Kinase MB 7.0H, Creatine Kinase MB Relative Index 1.91, Troponin I < 0.02, Total Protein 7.0, Albumin 3.3, Albumin/Globulin Ratio 0.89L, Thyroid Stimulating Hormone (TSH) 2.610, Salicylates Level 6.1, Acetaminophen Level < 2.0L, Ethyl Alcohol Level < 0.003 03/01/17 16:23: Urine Amphetamines Screen NEGATIVE, Urine Benzodiazepines Screen NEGATIVE, Urine Opiates Screen NEGATIVE, Urine Methadone Screen NEGATIVE, Urine Barbiturates Screen NEGATIVE, Urine Phencyclidine Screen NEGATIVE, Urine Cocaine Metabolite Screen NEGATIVE, Urine Cannabinoids Screen NEGATIVE CBC/BMP Laboratory Tests 03/01/17 13:24 Red Blood Count 5.03, Mean Corpuscular Volume 93.4, Mean Corpuscular Hemoglobin 33.3 H, Mean Corpuscular Hemoglobin Concent 35.7, Red Cell Distribution Width 15.3 H Home Medications Scheduled (Anoro Ellipta 62.5-25 Mcg/INH) 1 Aer Aer, 1 PUFF INH DAILY (Risperidone) 1 Mg Tab, 1 MG PO QHS Atorvastatin Calcium (Atorvastatin Calcium) 80 Mg Tab, 80 MG PO DAILY Citalopram Hydrobromide (Citalopram Hydrobromide) 10 Mg Tab, 10 MG PO DAILY Miscellaneous Medications [Patient Comment] PT HAS NOT TAKEN THESE MEDS IN MONTHS, VERIFIED WITH PHARMACY THAT THESE WERE LAST PICKED UP IN OCTOBER 2016 Allergies Coded Allergies: No Known Allergies (Unverified , 08/04/16) DOUGLAS PEDROZA DO Mar 02, 2017 02:06 CLOTILDE LAY MD Mar 03, 2017 04:38
[2017-03-02 02:19] LABS: ANION GAP 0 MEQ/L (8-16); BLOOD UREA NITROGEN 12 MG/DL (7-18); CALCIUM LEVEL 7.9 MG/DL (8.8-10.2); CARBON DIOXIDE LEVEL 35 MEQ/L (21-32); CHLORIDE LEVEL 91 MEQ/L (98-107); CREATININE FOR GFR 0.49 MG/DL (0.55-1.02); GLOMERULAR FILTRATION RATE > 60.0 (>45); GLUCOSE, FASTING 112 MG/DL (80-110); OSMOLALITY SERUM 267 MOSM/KG (275-295); POTASSIUM SERUM 3.9 MEQ/L (3.5-5.1); SODIUM LEVEL 126 MEQ/L (136-145)
[2017-03-02 02:24] LABS: OSMOLALITY URINE 235 MOSM/KG (500-800)
[2017-03-02 06:57] LABS: MEAN CORPUSCULAR HEMOGLOBIN 32.6 pg (27.0-33.0); MEAN CORPUSCULAR HGB CONC 34.2 g/dl (32.0-36.5); MEAN CORPUSCULAR VOLUME 95.5 fl (80.0-96.0); RED CELL DISTRIBUTION WIDTH 15.4 % (11.5-14.5); WHITE BLOOD COUNT 9.6 K/mm3 (4.0-10.0)
[2017-03-02 07:11] LABS: ANION GAP 4 MEQ/L (8-16); BLOOD UREA NITROGEN 9 MG/DL (7-18); CARBON DIOXIDE LEVEL 32 MEQ/L (21-32); CHLORIDE LEVEL 93 MEQ/L (98-107); GLOMERULAR FILTRATION RATE > 60.0 (>45); GLUCOSE, FASTING 91 MG/DL (80-110); POTASSIUM SERUM 3.6 MEQ/L (3.5-5.1); SODIUM LEVEL 129 MEQ/L (136-145)
[2017-03-02] MEDS: IPRATROPIUM 0.5MG/ALBUTEROL 2.5MG INH SOL UD 3ML (DUONEB)(J7620) NEB SCH ×3 (07:32→15:29)
[2017-03-02] MEDS: THIAMINE 100 MG TAB PO SCH ×2 (09:17→20:38)
[2017-03-02] MEDS: FOLIC ACID 1 MG TAB PO SCH (09:17)
[2017-03-02] MEDS: ENOXAPARIN 40 MG/0.4 ML SYRINGE (J1650) SC SCH (09:17)
[2017-03-02] MEDS: OXAZEPAM 10 MG CAP PO SCH ×3 (09:18→20:39)
[2017-03-02] MEDS: MULTIVITAMINS/MINERALS THERAP 1 TAB PO SCH (09:18)
--- NOTE | 2017-03-02 15:35 | IPN ---
)DATE: 03/02/2017 Patient is feeling well this morning. She knows she is in the hospital. She says she has not been eating and drinking much recently. She says she has been unable to ambulate at home. She seems much less confused than previously stated in the chart. She is pleasant and cooperative with exam. Temperature is 98.5, pulse 86, respiratory rate 19, blood pressure 92/56, 93% on 2 liters. Intake and output notable for a net fluid balance. Weight 53.1 kg with a body mass index of 22.9. She is awake, answering questions appropriately. Somewhat flattened affect. Mucous membranes moist. Neck supple. Breathing is symmetrical. Inspiratory to expiratory (I-to-E) ratio is 1:3. No wheezes, rales, or rhonchi. Heart is distant sounding. Normal S1, S2. Is not tachycardic. Abdomen soft, doughy, nontender. White cell count 9.6, hemoglobin 13.5, platelets of 114, trending downward. Sodium is 129, trending upward, BUN is 9, creatinine 0.4. ASSESSMENT: This is a 61-year-old who presented with metabolic encephalopathy. PLAN: 1. Metabolic encephalopathy. This is thought to be multifactorial related to hyponatremia, nutritional status, medications. This would appear to be improving at the time of my evaluation. 2. Patient has hyponatremia. It appears as though she has beer potomania or tea and toast diet. Does not appear to have obvious syndrome of inappropriate secretion of antidiuretic hormone (SIADH) and, in fact, does not have an obvious cause for SIADH apart from remote history of lung cancer. She has not been taking her psychiatric medications. 3. Patient has gait instability. 4. Patient has chronic alcoholism. No signs or symptoms of withdrawal. There is no tremor on exam. She does not feel anxious. 5. Patient has type 2 diabetes, currently diet controlled. 6. Patient has history of depression.
[2017-03-02] MEDS ORDERED: NS 500 ML IV ONE ×3 (16:00→18:45)
[2017-03-02 17:42] LABS: BASO % 0.8 % (0.0-1.0); EOS % 0.4 % (0.0-3.0); LARGE UNSTAINED CELL # 0.2 K/mm3 (0.0-0.4); LARGE UNSTAINED CELL % 2.1 % (0.0-4.0); LYMPH # 1.2 K/mm3 (1.5-4.5); LYMPH % 16.9 % (24.0-44.0); MEAN CORPUSCULAR HEMOGLOBIN 33.6 pg (27.0-33.0); MEAN CORPUSCULAR HGB CONC 34.8 g/dl (32.0-36.5); MEAN CORPUSCULAR VOLUME 96.6 fl (80.0-96.0); MONO # 0.4 K/mm3 (0.0-0.8); MONO % 5.7 % (0.0-5.0); NEUTROPHILS # 5.2 K/mm3 (1.8-7.7); NEUTROPHILS % 74.1 % (36.0-66.0); PLATELET COUNT, AUTOMATED 106 k/mm3 (150-450); RED CELL DISTRIBUTION WIDTH 15.3 % (11.5-14.5)
[2017-03-02 17:46] LABS: ALBUMIN 2.4 GM/DL (3.2-5.2); ALBUMIN/GLOBULIN RATIO 0.92 (1.00-1.93); ALKALINE PHOSPHATASE 80 U/L (45-117); ALT/SGPT 27 U/L (12-78); ANION GAP 6 MEQ/L (8-16); AST/SGOT 18 U/L (15-37); BILIRUBIN,TOTAL 0.2 MG/DL (0.2-1.0); BLOOD UREA NITROGEN 9 MG/DL (7-18); CARBON DIOXIDE LEVEL 31 MEQ/L (21-32); CHLORIDE LEVEL 98 MEQ/L (98-107); CREATININE FOR GFR 0.37 MG/DL (0.55-1.02); GLOMERULAR FILTRATION RATE > 60.0 (>45); GLUCOSE, FASTING 145 MG/DL (80-110); POTASSIUM SERUM 3.2 MEQ/L (3.5-5.1); SODIUM LEVEL 135 MEQ/L (136-145)
[2017-03-02] MEDS: PIPERACILLIN/TAZOBACTAM SOD 3.375 GM in D5W MINI-BAG PLUS 50 ML IV SCH ×2 (17:49→23:21)
[2017-03-03 01:23] VITALS: BP_SYST 100; BP_SYST 80; BP_DIAS 60; BP_DIAS 75
[2017-03-03] MEDS: PIPERACILLIN/TAZOBACTAM SOD 3.375 GM in D5W MINI-BAG PLUS 50 ML IV SCH ×4 (05:09→23:48)
[2017-03-03] MEDS: NS 1,000 ML IV SCH ×4 (05:10→21:27)
[2017-03-03 05:29] VITALS: BP 102/60
[2017-03-03 06:26] LABS: ANION GAP 6 MEQ/L (8-16); BLOOD UREA NITROGEN 8 MG/DL (7-18); CARBON DIOXIDE LEVEL 33 MEQ/L (21-32); CHLORIDE LEVEL 98 MEQ/L (98-107); CREATININE FOR GFR 0.48 MG/DL (0.55-1.02); GLOMERULAR FILTRATION RATE > 60.0 (>45); GLUCOSE, FASTING 103 MG/DL (80-110); MEAN CORPUSCULAR HEMOGLOBIN 33.3 pg (27.0-33.0); POTASSIUM SERUM 3.5 MEQ/L (3.5-5.1); RED CELL DISTRIBUTION WIDTH 15.2 % (11.5-14.5); SODIUM LEVEL 137 MEQ/L (136-145); WHITE BLOOD COUNT 9.6 K/mm3 (4.0-10.0)
[2017-03-03] MEDS: IPRATROPIUM 0.5MG/ALBUTEROL 2.5MG INH SOL UD 3ML (DUONEB)(J7620) NEB SCH ×4 (07:19→23:16)
[2017-03-03 08:00] VITALS: BP 92/62
--- NOTE | 2017-03-03 08:26 | IPNPDOC ---
Text Note Date of Service The patient was seen on 03/03/17. NOTE Subjective: Patient seen and examined at bedside. Overnight events significant for episode of lethargy. Serax was held. This morning patient has no new medical complaints. Objective: General: elderly, frail, lying comfortably in bed HEENT: NC/AT, EOMI, PERRL Lungs: CTA B/L Heart: +S1S2 Abd: soft, NT, +BS Ext: no edema Psych: AAOx3, flat affect Assessment/Plan: This is a 61-year-old who presented with metabolic encephalopathy. 1. Metabolic encephalopathy - appears to have resolved - possibly multifactorial related to hyponatremia, nutritional status, medications 2. Hyponatremia - It appears as though she has beer potomania or tea and toast diet - resolved with IV fluids - will discontinue fluids and follow clinically and labs 3. Gait dysfunction - PT 4. Chronic alcoholism - No signs or symptoms of withdrawal - serax was held yesterday secondary to lethargy - will continue to hold and monitor clinically - Serax as needed, folic acid, thiamine, MVI 5. Patient has type 2 diabetes, currently diet controlled. 6. Patient has history of depression. 7. DVT prophylaxis - Lovenox 8. Thrombocytopenia - no signs of bleeding - continue to follow 9. Hypotension - possibly from erroneous reading secondary to poor vasculature - continue to follow clinically - continue with abx for now pending cultures VS,Lisa, I+O VS, Nancye, I+O Laboratory Tests 03/02/17 17:02 Red Blood Count 3.94 L, Mean Corpuscular Volume 96.6 H, Mean Corpuscular Hemoglobin 33.6 H, Mean Corpuscular Hemoglobin Concent 34.8, Red Cell Distribution Width 15.3 H, Neutrophils (%) (Auto) 74.1 H, Lymphocytes (%) (Auto ) 16.9 L, Monocytes (%) (Auto) 5.7 H, Eosinophils (%) (Auto) 0.4, Basophils (%) (Auto) 0.8, Neutrophils # (Auto) 5.2, Lymphocytes # (Auto) 1.2 L, Monocytes # ( Auto) 0.4, Eosinophils # (Auto) 0.0, Basophils # (Auto) 0.0, Calcium Level 7.0 L , Aspartate Amino Transf (AST/SGOT) 18, Alanine Aminotransferase (ALT/SGPT) 27, Alkaline Phosphatase 80, Total Bilirubin 0.2 #, Total Protein 5.0 #L, Albumin 2.4 #L 03/03/17 05:25 Red Blood Count 3.84 L, Mean Corpuscular Volume 98.0 H, Mean Corpuscular Hemoglobin 33.3 H, Mean Corpuscular Hemoglobin Concent 34.0, Red Cell Distribution Width 15.2 H, Calcium Level 8.0 L Vital Signs Date Time Temp Pulse Resp B/P (MAP) Pulse Ox O2 Delivery O2 Flow Rate FiO2 03/03/17 06:00 97.6 03/03/17 05:29 102/60 03/03/17 01:23 98 20 98 Nasal Cannula 2.0 I&O- Last 24 Hours up to 6 AM 03/04/17 06:00 Intake Total 360 ml Balance 360 ml RODDY FINLEY MD Mar 03, 2017 08:26
[2017-03-03] MEDS: OXAZEPAM 10 MG CAP PO SCH ×3 (09:07→21:27)
[2017-03-03] MEDS: MULTIVITAMINS/MINERALS THERAP 1 TAB PO SCH (09:07)
[2017-03-03] MEDS: ENOXAPARIN 40 MG/0.4 ML SYRINGE (J1650) SC SCH (09:07)
[2017-03-03] MEDS: FOLIC ACID 1 MG TAB PO SCH (09:07)
[2017-03-03] MEDS: THIAMINE 100 MG TAB PO SCH ×2 (09:10→21:27)
[2017-03-03 09:45] VITALS: BP 92/62
[2017-03-03 15:35] VITALS: BP 108/56
--- NOTE | 2017-03-03 21:57 | ECHO ---
DATE OF PROCEDURE: 03/03/2017 DATE OF : 1955 REFERRING PHYSICIAN: Dr. Shabnam Randolph INDICATION: Ventricular tachycardia. HEIGHT: 60 inches. WEIGHT: 140 pounds. 2D MEASUREMENTS: Aortic root: 2.7 cm Proximal ascending aorta: 2.6 cm Left atrium: 3.6 cm Ventricular septum: 0.90 cm Posterior wall: 0.89 cm Left ventricle diastole: 4.0 cm Left ventricle systole: 2.2 cm Inferior vena cava: 1.9 cm DOPPLER MEASUREMENTS: Aortic valve velocity: 122 cm/s LVOT velocity: 88.7 cm/s LVOT VTI: 18.8 cm Mitral E velocity: 124 cm/s Mitral A velocity: 106 cm/s Mitral deceleration time: 204 ms MITRAL ANNULAR TISSUE DOPPLER: E prime lateral: 10.1 cm/s E prime septal: 9.5 cm/s DESCRIPTION: Rhythm was sinus. This was a moderately technically difficult echocardiogram. No pericardial effusion. This was a 2D, M-mode, color flow Doppler and pulse wave Doppler examination and included mitral annular tissue Doppler. CONCLUSIONS: 1. Normal left ventricle internal dimensions and wall thickness. Normal regional LV wall motion and wall thickening. Normal LV systolic function. Left ventricular ejection fraction (LVEF) 65-70% by visual estimate. Normal LV diastolic function. 2. Moderately technically difficult echocardiogram. 3. Otherwise unremarkable appearing echocardiogram Doppler.
[2017-03-03 22:00] VITALS: BP 116/71
[2017-03-04] MEDS: NS 1,000 ML IV SCH (04:56)
[2017-03-04] MEDS: PIPERACILLIN/TAZOBACTAM SOD 3.375 GM in D5W MINI-BAG PLUS 50 ML IV SCH (04:56)
[2017-03-04 06:10] LABS: MEAN CORPUSCULAR HEMOGLOBIN 32.9 pg (27.0-33.0); MEAN CORPUSCULAR HGB CONC 34.3 g/dl (32.0-36.5); RED CELL DISTRIBUTION WIDTH 15.4 % (11.5-14.5); WHITE BLOOD COUNT 10.1 K/mm3 (4.0-10.0)
[2017-03-04 06:22] LABS: ANION GAP 7 MEQ/L (8-16); BLOOD UREA NITROGEN 4 MG/DL (7-18); CARBON DIOXIDE LEVEL 34 MEQ/L (21-32); CHLORIDE LEVEL 96 MEQ/L (98-107); CREATININE FOR GFR 0.33 MG/DL (0.55-1.02); GLOMERULAR FILTRATION RATE > 60.0 (>45); GLUCOSE, FASTING 94 MG/DL (80-110); POTASSIUM SERUM 2.6 MEQ/L (3.5-5.1); SODIUM LEVEL 137 MEQ/L (136-145)
[2017-03-04 08:00] VITALS: BP 120/68
[2017-03-04] MEDS: IPRATROPIUM 0.5MG/ALBUTEROL 2.5MG INH SOL UD 3ML (DUONEB)(J7620) NEB SCH ×3 (08:05→19:31)
--- NOTE | 2017-03-04 08:26 | IPNPDOC ---
Text Note Date of Service The patient was seen on 03/04/17. NOTE Subjective: Patient seen and examined at bedside. This morning patient complains of general fatigue. Patient is having diarrhea. Objective: General: elderly, frail, lying comfortably in bed HEENT: NC/AT, EOMI, PERRL Lungs: CTA B/L Heart: +S1S2 Abd: soft, NT, +BS Ext: no edema Psych: AAOx3, flat affect Assessment/Plan: This is a 61-year-old who presented with metabolic encephalopathy. 1. Metabolic encephalopathy - appears to have resolved - possibly multifactorial related to hyponatremia, nutritional status, medications 2. Hyponatremia - It appears as though she has beer potomania or tea and toast diet - resolved 3. Diarrhea/hypokalemia - continue IV fluids - stop Abx - GI panel pending - continue IV fluids - check magnesium 4. Gait dysfunction - PT 5. Chronic alcoholism - No signs or symptoms of withdrawal - serax was held yesterday secondary to lethargy - will continue to hold and monitor clinically - Serax as needed, folic acid, thiamine, MVI 6. Patient has type 2 diabetes, currently diet controlled. 7. Patient has history of depression. 8. DVT prophylaxis - Lovenox 9. Thrombocytopenia - no signs of bleeding - continue to follow 10. Hypotension - possibly from erroneous reading secondary to poor vasculature - continue to follow clinically VS,Lisa, I+O VSLisa, I+O Laboratory Tests 03/04/17 05:21 Red Blood Count 4.01, Mean Corpuscular Volume 96.0, Mean Corpuscular Hemoglobin 32.9, Mean Corpuscular Hemoglobin Concent 34.3, Red Cell Distribution Width 15.4 H, Calcium Level 8.0 L Vital Signs Date Time Temp Pulse Resp B/P (MAP) Pulse Ox O2 Delivery O2 Flow Rate FiO2 03/03/17 22:00 116/71 03/03/17 22:00 97.8 03/03/17 21:00 Nasal Cannula 2.0 03/03/17 15:35 96 03/03/17 01:23 20 98 RODDY FINLEY MD Mar 04, 2017 08:26
[2017-03-04] MEDS ORDERED: POTASSIUM CHLORIDE 10 MEQ SR TABLET PO ONE (08:30)
[2017-03-04] MEDS: MULTIVITAMINS/MINERALS THERAP 1 TAB PO SCH (08:31)
[2017-03-04] MEDS: FOLIC ACID 1 MG TAB PO SCH (08:31)
[2017-03-04] MEDS: OXAZEPAM 10 MG CAP PO SCH ×3 (08:31→20:46)
[2017-03-04] MEDS: THIAMINE 100 MG TAB PO SCH (08:31)
[2017-03-04] MEDS: ENOXAPARIN 40 MG/0.4 ML SYRINGE (J1650) SC SCH (08:31)
[2017-03-04 08:44] LABS: MAGNESIUM LEVEL 1.7 MG/DL (1.8-2.4)
[2017-03-04] MEDS ORDERED: MAG SULF 1GM/100ML (MAG RUN) 1 GM in APPROPRIATE DILUENT 1 EA IV ONE (10:30)
--- NOTE | 2017-03-04 13:15 | REP ---
Chest x-ray: Two views. History: Shortness of breath. Comparison study: March 01, 2017. Findings: Monitoring electrode is seen. There is an Bhbmul-E-Rumb catheter via the left side with its tip in the expected location of the superior vena cava. The lungs are somewhat hyperinflated but free of infiltrate. Mild biapical linear fibrosis is seen. There is a new area of opacity at the left base laterally consistent with atelectasis or infiltrate. Lung garcia are otherwise clear. Heart is not enlarged. There are degenerative changes in the thoracic spine. Impression: Small area of increased density in the left lateral pleural angle new from the recent prior study. There are old bilateral rib fractures. Signed by Jefry Chau MD 03/04/2017 03:21 P
[2017-03-04 14:00] VITALS: BP 112/59
[2017-03-04 21:50] VITALS: BP 111/56
[2017-03-04 22:00] VITALS: BP 111/56
[2017-03-05 05:15] LABS: MEAN CORPUSCULAR HEMOGLOBIN 32.8 pg (27.0-33.0); MEAN CORPUSCULAR HGB CONC 34.2 g/dl (32.0-36.5); MEAN CORPUSCULAR VOLUME 95.9 fl (80.0-96.0); RED CELL DISTRIBUTION WIDTH 15.5 % (11.5-14.5); WHITE BLOOD COUNT 8.8 K/mm3 (4.0-10.0)
[2017-03-05 05:31] LABS: ANION GAP 5 MEQ/L (8-16); BLOOD UREA NITROGEN 5 MG/DL (7-18); CALCIUM LEVEL 8.1 MG/DL (8.8-10.2); CARBON DIOXIDE LEVEL 37 MEQ/L (21-32); CHLORIDE LEVEL 96 MEQ/L (98-107); CREATININE FOR GFR 0.34 MG/DL (0.55-1.02); GLOMERULAR FILTRATION RATE > 60.0 (>45); GLUCOSE, FASTING 93 MG/DL (80-110); SODIUM LEVEL 138 MEQ/L (136-145)
[2017-03-05 05:49] LABS: POTASSIUM SERUM 2.7 MEQ/L (3.5-5.1)
[2017-03-05 06:00] VITALS: BP 102/56
[2017-03-05] MEDS ORDERED: POTASSIUM CHLORIDE 10% LIQ 20 MEQ/15 ML UDC PO ONE ×2 (06:15→10:00)
[2017-03-05] MEDS: IPRATROPIUM 0.5MG/ALBUTEROL 2.5MG INH SOL UD 3ML (DUONEB)(J7620) NEB SCH ×2 (07:55→16:04)
--- NOTE | 2017-03-05 08:27 | IPNPDOC ---
Text Note Date of Service The patient was seen on 03/05/17. NOTE Subjective: Patient seen and examined at bedside. This morning patient complains of general fatigue. Patient is having diarrhea. Objective: General: elderly, frail, lying comfortably in bed HEENT: NC/AT, EOMI, PERRL Lungs: CTA B/L Heart: +S1S2 Abd: soft, NT, +BS Ext: no edema Psych: AAOx3, flat affect Assessment/Plan: This is a 61-year-old who presented with metabolic encephalopathy. 1. Metabolic encephalopathy - appears to have resolved - possibly multifactorial related to hyponatremia, nutritional status, medications 2. Hyponatremia - It appears as though she has beer potomania or tea and toast diet - resolved 3. Diarrhea/hypokalemia - improving - GI panel pending - check magnesium, replete as needed 4. Gait dysfunction - PT 5. Chronic alcoholism - No signs or symptoms of withdrawal - serax was held yesterday secondary to lethargy - will continue to hold and monitor clinically - Serax as needed, folic acid, thiamine, MVI 6. Patient has type 2 diabetes, currently diet controlled. 7. Patient has history of depression. 8. Thrombocytopenia - no signs of bleeding - continue to follow 9. Hypotension - possibly from erroneous reading secondary to poor vasculature - stable - continue to follow clinically 10. Hypoxic respiratory failure - likely fluid overload - fluids have been discontinued - continue to wean O2 - IS, acapella 11. DVT prophylaxis - Lovenox VS,Fishbone, I+O VS, Fishbone, I+O Laboratory Tests 03/05/17 04:38 Red Blood Count 3.81 L, Mean Corpuscular Volume 95.9, Mean Corpuscular Hemoglobin 32.8, Mean Corpuscular Hemoglobin Concent 34.2, Red Cell Distribution Width 15.5 H, Calcium Level 8.1 L Vital Signs Date Time Temp Pulse Resp B/P (MAP) Pulse Ox O2 Delivery O2 Flow Rate FiO2 03/05/17 06:00 98.3 89 18 102/56 (71) 97 Nasal Cannula 3.0 I&O- Last 24 Hours up to 6 AM 03/06/17 06:00 Intake Total 240 ml Balance 240 ml RODDY FINLEY MD Mar 05, 2017 08:27
[2017-03-05 09:05] LABS: MAGNESIUM LEVEL 1.9 MG/DL (1.8-2.4)
[2017-03-05] MEDS: OXAZEPAM 10 MG CAP PO SCH ×3 (09:34→21:12)
[2017-03-05] MEDS: MULTIVITAMINS/MINERALS THERAP 1 TAB PO SCH (09:34)
[2017-03-05] MEDS: FOLIC ACID 1 MG TAB PO SCH (09:34)
[2017-03-05] MEDS: ENOXAPARIN 40 MG/0.4 ML SYRINGE (J1650) SC SCH (09:35)
[2017-03-05 22:00] VITALS: BP 128/62
[2017-03-06 06:00] VITALS: BP 107/55
[2017-03-06 06:31] LABS: MEAN CORPUSCULAR HEMOGLOBIN 32.6 pg (27.0-33.0); RED CELL DISTRIBUTION WIDTH 15.5 % (11.5-14.5); WHITE BLOOD COUNT 8.1 K/mm3 (4.0-10.0)
[2017-03-06 06:40] LABS: ANION GAP 9 MEQ/L (8-16); BLOOD UREA NITROGEN 6 MG/DL (7-18); CALCIUM LEVEL 8.1 MG/DL (8.8-10.2); CARBON DIOXIDE LEVEL 31 MEQ/L (21-32); CHLORIDE LEVEL 98 MEQ/L (98-107); CREATININE FOR GFR 0.41 MG/DL (0.55-1.02); GLOMERULAR FILTRATION RATE > 60.0 (>45); GLUCOSE, FASTING 95 MG/DL (80-110); POTASSIUM SERUM 3.4 MEQ/L (3.5-5.1); SODIUM LEVEL 138 MEQ/L (136-145)
[2017-03-06] MEDS: IPRATROPIUM 0.5MG/ALBUTEROL 2.5MG INH SOL UD 3ML (DUONEB)(J7620) NEB SCH ×4 (07:30→23:50)
[2017-03-06] MEDS: ENOXAPARIN 40 MG/0.4 ML SYRINGE (J1650) SC SCH (08:18)
[2017-03-06] MEDS: OXAZEPAM 10 MG CAP PO SCH ×2 (08:18→20:12)
[2017-03-06] MEDS: MULTIVITAMINS/MINERALS THERAP 1 TAB PO SCH (08:18)
[2017-03-06] MEDS: FOLIC ACID 1 MG TAB PO SCH (08:18)
--- NOTE | 2017-03-06 08:48 | IPNPDOC ---
Text Note Date of Service The patient was seen on 03/06/17. NOTE Subjective: Patient seen and examined at bedside. This morning patient complains of some pain at her IV site. She states her diarrhea has resolved. Denies any shortness of breath. Objective: General: elderly, frail, lying comfortably in bed HEENT: NC/AT, EOMI, PERRL Lungs: CTA B/L Heart: +S1S2 Abd: soft, NT, +BS Ext: no edema Psych: AAOx3, flat affect Assessment/Plan: This is a 61-year-old who presented with metabolic encephalopathy. 1. Metabolic encephalopathy - appears to have resolved - possibly multifactorial related to hyponatremia, nutritional status, medications 2. Hyponatremia - It appears as though she has beer potomania or tea and toast diet - resolved 3. Diarrhea/hypokalemia - improving - GI panel pending - check magnesium, replete as needed 4. Gait dysfunction - PT 5. Chronic alcoholism - No signs or symptoms of withdrawal - serax was held yesterday secondary to lethargy - will continue to hold and monitor clinically - Serax as needed, folic acid, thiamine, MVI 6. Patient has type 2 diabetes, currently diet controlled. 7. Patient has history of depression. 8. Thrombocytopenia - no signs of bleeding - continue to follow 9. Hypotension - possibly from erroneous reading secondary to poor vasculature - stable - continue to follow clinically 10. Hypoxic respiratory failure - likely fluid overload - saturating well on room air today - incentive spirometry 11. DVT prophylaxis - Lovenox VS,Fishbone, I+O VS, Fishbone, I+O Laboratory Tests 03/05/17 10:06 03/05/17 17:05 03/06/17 06:08 Red Blood Count 4.19, Mean Corpuscular Volume 96.0, Mean Corpuscular Hemoglobin 32.6, Mean Corpuscular Hemoglobin Concent 34.0, Red Cell Distribution Width 15.5 H, Calcium Level 8.1 L Vital Signs Date Time Temp Pulse Resp B/P (MAP) Pulse Ox O2 Delivery O2 Flow Rate FiO2 03/06/17 06:00 98.2 90 22 107/55 (72) 99 03/05/17 22:00 Room Air 03/05/17 21:40 3.0 I&O- Last 24 Hours up to 6 AM 03/07/17 06:00 Output Total 200 ml Balance -200 ml RODDY FINLEY MD Mar 06, 2017 08:48
[2017-03-06] MEDS ORDERED: POTASSIUM CHLORIDE 10 MEQ SR TABLET PO ONE (09:00)
[2017-03-06 09:15] LABS: MAGNESIUM LEVEL 1.9 MG/DL (1.8-2.4)
[2017-03-06 20:05] VITALS: BP 132/60
[2017-03-07 06:08] VITALS: BP 112/66
[2017-03-07 06:08] LABS: MEAN CORPUSCULAR HEMOGLOBIN 33.2 pg (27.0-33.0); MEAN CORPUSCULAR HGB CONC 34.6 g/dl (32.0-36.5); RED CELL DISTRIBUTION WIDTH 15.4 % (11.5-14.5); WHITE BLOOD COUNT 9.3 K/mm3 (4.0-10.0)
[2017-03-07 06:40] LABS: ANION GAP 4 MEQ/L (8-16); BLOOD UREA NITROGEN 10 MG/DL (7-18); CARBON DIOXIDE LEVEL 31 MEQ/L (21-32); CHLORIDE LEVEL 96 MEQ/L (98-107); CREATININE FOR GFR 0.46 MG/DL (0.55-1.02); GLOMERULAR FILTRATION RATE > 60.0 (>45); GLUCOSE, FASTING 107 MG/DL (80-110); POTASSIUM SERUM 4.6 MEQ/L (3.5-5.1); SODIUM LEVEL 131 MEQ/L (136-145)
[2017-03-07] MEDS: IPRATROPIUM 0.5MG/ALBUTEROL 2.5MG INH SOL UD 3ML (DUONEB)(J7620) NEB SCH ×3 (07:34→23:38)
[2017-03-07] MEDS: OXAZEPAM 10 MG CAP PO SCH (08:50)
[2017-03-07] MEDS: ENOXAPARIN 40 MG/0.4 ML SYRINGE (J1650) SC SCH (08:50)
[2017-03-07] MEDS: MULTIVITAMINS/MINERALS THERAP 1 TAB PO SCH (08:51)
[2017-03-07] MEDS: FOLIC ACID 1 MG TAB PO SCH (08:51)
--- NOTE | 2017-03-07 12:33 | IPN ---
DATE: 03/07/2017 Ms. Simmons is feeling better. She is more awake and alert. Wants to know when she can go home. Has been tolerating a diet. No complaints of pain, chest pain or shortness of breath. Wants to go home and see her daughter and her grandchildren. Temperature 97.5. Pulse 100. Respiratory rate 20. Blood pressure 112/66. 92% on room air. Ins and outs notable for a positive fluid balance of +400, 2 bowel movements noted yesterday. Awake. Appropriately interactive. Flattened affect. Mucous membranes moist. Neck supple. Breathing is symmetrical, rested. I:E ratio 1:3. No wheezes, rales or rhonchi. Heart: Distant sounding. Normal S1. S2. Radial pulses 2+. Capillary refill is less than 2 seconds. Abdomen soft, doughy, nontender. White cell count is 9.3, hemoglobin 13.9 with platelets of 171. BUN 10, creatinine 0.46 and sodium 131. ASSESSMENT: This is a 61-year-old with metabolic encephalopathy. PLAN: 1. Metabolic encephalopathy. This appears multifactorial related to beer potomania, decreased nutrition status and medication side effects and is improved. She is likely at her baseline. 2. Hyponatremia. Resolved. 3. The patient had profound diarrhea early in her stay which has resolved as well. GI panel has yet to be sent. 4. The patient has gait dysfunction and is following with physical therapy. Is not yet cleared to go home. 5. The patient has history of alcohol use, chronic. Serax taper has been completed. No signs or symptoms of withdrawal currently. 6. The patient has type 2 diabetes. 7. The patient has history of depression. 8. The patient has thrombocytopenia. 9. The patient has experienced hypotension during her stay, which is likely related to inaccurate readings related to underlying vascular disease. 10. The patient has history of lung cancer, status post radiation and chemotherapy.
[2017-03-07 14:00] VITALS: BP 130/64
[2017-03-07 21:05] VITALS: BP 149/68
[2017-03-08 05:45] VITALS: BP 106/56
[2017-03-08 06:13] LABS: MEAN CORPUSCULAR HEMOGLOBIN 31.9 pg (27.0-33.0); MEAN CORPUSCULAR HGB CONC 34.4 g/dl (32.0-36.5); MEAN CORPUSCULAR VOLUME 92.6 fl (80.0-96.0); RED CELL DISTRIBUTION WIDTH 15.8 % (11.5-14.5); WHITE BLOOD COUNT 8.2 10^3/uL (4.0-10.0)
[2017-03-08 06:38] LABS: ANION GAP 8 MEQ/L (8-16); BLOOD UREA NITROGEN 8 MG/DL (7-18); CALCIUM LEVEL 8.8 MG/DL (8.8-10.2); CARBON DIOXIDE LEVEL 27 MEQ/L (21-32); CHLORIDE LEVEL 94 MEQ/L (98-107); CREATININE FOR GFR 0.33 MG/DL (0.55-1.02); GLOMERULAR FILTRATION RATE > 60.0 (>45); GLUCOSE, FASTING 108 MG/DL (80-110); POTASSIUM SERUM 3.8 MEQ/L (3.5-5.1); SODIUM LEVEL 129 MEQ/L (136-145)
[2017-03-08] MEDS: IPRATROPIUM 0.5MG/ALBUTEROL 2.5MG INH SOL UD 3ML (DUONEB)(J7620) NEB SCH ×3 (07:27→22:45)
[2017-03-08] MEDS: MULTIVITAMINS/MINERALS THERAP 1 TAB PO SCH (08:28)
[2017-03-08] MEDS: ENOXAPARIN 40 MG/0.4 ML SYRINGE (J1650) SC SCH (08:28)
[2017-03-08] MEDS: FOLIC ACID 1 MG TAB PO SCH (08:28)
[2017-03-08 09:25] VITALS: BP 117/56
[2017-03-08] MEDS ORDERED: MAALOX 30 ML SUSP *UDC PO PRN (10:15)
[2017-03-08] MEDS: THIAMINE 100 MG TAB PO SCH (12:15)
[2017-03-08 14:00] VITALS: BP 122/62
--- NOTE | 2017-03-08 16:49 | IPN ---
DATE: 03/08/2017 Ms. Simmons is not feeling well today. She would like to go home. Apparently, she was working with physical therapy and was having difficulty following commands. Medical staff has noted that as well. Daughter is unable to make it to the planned family visit this morning. Temperature 97.7, pulse 94, respiratory rate 16, blood pressure 117/56, 92% on room air. Intake and output notable for a positive fluid balance of 1105, bowel movements one yesterday. Body mass index 23.2. She is awake, appropriately interactive, flattened affect, following commands. Breathing is symmetrical. Heart is distant sounding. Radial pulses 2+. Abdomen soft, doughy, nontender. White cell count 8.2, platelets 182, BUN 8, creatinine 0.33, sodium is trending downward at 129. Urine studies are pending. Will get a cortisol level in the morning and will get a calorie count. My assessment is as follows: This is a 61-year-old with metabolic encephalopathy. Plan is as follows: 1. Metabolic encephalopathy. This is multifactorial related to beer potomania, decreased nutritional status, and medication side effects, and is improving. She is likely at her baseline. 2. Patient has hyponatremia, which is recurring. Will check a cortisol level in the morning and get a calorie count. 3. Patient has resolved diarrhea. 4. Patient has gait dysfunction and is doing well with physical therapy physically, but is not following commands appropriately. 5. Patient has history of alcohol use and is cirrhotic. Currently off Serax without signs or symptoms of withdrawal. 6. Patient has type 2 diabetes. 7. Patient has depression. 8. Patient has thrombocytopenia. 9. Patient had hypotension during her stay which was likely related to inaccurate blood pressure readings related to underlying vascular disease. 10. Patient has history of lung cancer status post radiation and chemotherapy. 11. Patient has a complicated social situation and will likely require placement or 24 hour care at home.
[2017-03-08 22:00] VITALS: BP 107/59
[2017-03-09 06:00] VITALS: BP 126/58
[2017-03-09 06:23] LABS: MEAN CORPUSCULAR HEMOGLOBIN 31.9 pg (27.0-33.0); MEAN CORPUSCULAR HGB CONC 34.5 g/dl (32.0-36.5); MEAN CORPUSCULAR VOLUME 92.3 fl (80.0-96.0); RED CELL DISTRIBUTION WIDTH 15.7 % (11.5-14.5); WHITE BLOOD COUNT 9.3 10^3/uL (4.0-10.0)
[2017-03-09 06:44] LABS: ANION GAP 9 MEQ/L (8-16); BLOOD UREA NITROGEN 8 MG/DL (7-18); CALCIUM LEVEL 8.6 MG/DL (8.8-10.2); CARBON DIOXIDE LEVEL 27 MEQ/L (21-32); CHLORIDE LEVEL 92 MEQ/L (98-107); CREATININE FOR GFR 0.35 MG/DL (0.55-1.02); GLOMERULAR FILTRATION RATE > 60.0 (>45); GLUCOSE, FASTING 95 MG/DL (80-110); POTASSIUM SERUM 4.1 MEQ/L (3.5-5.1); SODIUM LEVEL 128 MEQ/L (136-145)
[2017-03-09] MEDS: IPRATROPIUM 0.5MG/ALBUTEROL 2.5MG INH SOL UD 3ML (DUONEB)(J7620) NEB SCH (07:36)
[2017-03-09 08:00] VITALS: BP 106/53
[2017-03-09] MEDS: MULTIVITAMINS/MINERALS THERAP 1 TAB PO SCH (09:16)
[2017-03-09] MEDS: FOLIC ACID 1 MG TAB PO SCH (09:16)
[2017-03-09] MEDS: ENOXAPARIN 40 MG/0.4 ML SYRINGE (J1650) SC SCH (09:16)
[2017-03-09] MEDS: THIAMINE 100 MG TAB PO SCH (09:16)
[2017-03-09 10:43] LABS: CORTISOL AM 5.2 UG/DL (4.3-22.4)
[2017-03-09] MEDS ORDERED: NS 1,000 ML IV SCH (11:00)
[2017-03-09] MEDS ORDERED: ALBUTEROL SULFATE 2.5 MG/0.5 ML INH NEB SOLN INH PRN (11:00)
[2017-03-09] MEDS: risperiDONE 0.5 MG TAB PO SCH ×2 (12:22→20:27)
[2017-03-09 14:00] VITALS: BP 101/55
--- NOTE | 2017-03-09 16:30 | IPN ---
DATE: 03/09/2017 Ms. Simmons is complaining of cough today. She feels a little wheezy and short of breath. No chest pain. Asking for nebulizer therapy. Would like to go home today as well. Is unsure when her daughter will be in. Temperature 97.5, pulse 97, respirations 18, blood pressure 106/53, 94% on room air. Intake and output notable for a positive fluid status of 2190. Two bowel movements yesterday. She is awake. Flattened affect. Breathing is symmetrical. Scatter polyphonic wheeze. In terms of ratio is 1:3. Speaking in complete sentences. No accessory muscle use. Heart is in a regular rate and rhythm. Abdomen soft, doughy, nontender. There is no significant lower extremity edema. White cell count 9.3. BUN is 8, creatinine 0.35, sodium is 128, trending downward. Cortisol is 5.2 this morning, which sin the normal range. Urine osmolality is 272 and urine creatinine is 30 from yesterday compared to a serum osmolality of 278. ASSESSMENT: This is a 61-year-old with metabolic encephalopathy. PLAN: 1. Metabolic encephalopathy. This is multifactorial, related to beer potomania, decreased nutritional status, medication side effects, and underlying psychiatric illness. She is probably near her nontreated baseline. Will start some Risperdal today. May benefit from a psychiatric consultation. 2. Patient has hyponatremia, which, again, is recurring. This would appear to be likely hypovolemic hyponatremia. Does not appear to be syndrome of inappropriate secretion of antidiuretic hormone (SIADH), even in the setting of her known lung cancer history. Will give a liter of fluid and recheck urine. Cortisol level is at the low-normal range for the morning. Thyroid-stimulating hormone (TSH) within normal limits. 3. Patient has resolved diarrhea. 4. Patient has gait dysfunction. Has done well with physical therapy but has not been following commands and shows some impulsiveness. Likely is unsafe to be unattended. 5. Patient has history of alcohol use, on Serax, which has been weaned. There are no signs or symptoms of withdrawal. 6. Patient has type 2 diabetes. 7. Patient has depression. 8. Patient has thrombocytopenia. 9. Patient has lung cancer status post radiation and chemotherapy. 10. Patient has a complicated social situation. Will require placement or 24-hour home care most likely.
[2017-03-09 21:44] LABS: OSMOLALITY URINE 109 MOSM/KG (500-800)
[2017-03-09 22:00] VITALS: BP 120/53
--- NOTE | 2017-03-10 01:00 | REP ---
Clinical: Cough . Comparison: 03/04/2017 . Technique: PA and lateral. Findings: The mediastinum and cardiac silhouette are normal. [id number] identified with tip in the SVC. The lung garcia are clear and without acute consolidation, effusion, or pneumothorax. The previously identified subtle opacity in the left costophrenic angle has resolved. The skeletal structures are intact. Impression: 1. No acute cardiopulmonary process. Signed by Reji Dupree MD 03/10/2017 12:52 A
--- NOTE | 2017-03-10 04:18 | CR ---
DATE OF CONSULTATION: 03/09/2017 CHIEF COMPLAINT: She says she feels okay. SUBJECTIVE: She is 61 years old. She stays on her own, has a daughter locally. The patient has a long history of psychiatric difficulties, has had previous hospitalizations in psychiatry, was last in the inpatient unit about a year ago, I had seen her during that time, and she was under Dr. Mcmillan's care, please refer to the summaries made at that time for details related to the hospital stay. She has attended replaced by [facility], as an outpatient, for psychiatry, but has not been there for a little while, possibly a few months. She had come in as she had started drinking again, and it should be noted most of the history is obtained from the chart rather than the patient, who does not seem to recall much in terms of details, but does say had been drinking prior to coming in. Seen to be confused when seen in the emergency room (ER), and was incoherent. She was apparently drinking a 12-pack of beer a day. She had been seen by her daughter every couple of days, who had become increasingly concerned about the confused state of the patient, and the patient had been brought here. While here, she was seen to have altered mental status, thought to be multifactorial, with acute metabolic encephalopathy, chronic alcoholism, she had low sodium, poor nutrition as well. The patient says that she had fallen at home, and started drinking afterwards. Again, she is not reliable in terms of her history. She is supposed to be on Celexa 20 mg daily, risperidone 1 mg daily, trazodone 50 mg at bedtime, but according to the record, has not been on any medicines for the past 4 months or so. She acknowledges she had not used any medicines for a while, and that she was not attending the [facility], for psychiatric care. In addition to this, has been treated for small-cell lung cancer, had completed chemotherapy earlier in the year, and received radiation. She was going to [place] for that. Says now feeling better, and that her mood is generally good, says is going to go home, and that she will stay at her daughter's place for a week, before returning to her own. Says her daughter has keys to her apartment, and is arranging for things there, including cleaning it. She denies any suicidal thoughts or intents. Denies any auditory, visual hallucinations. When seen last year, was thought to be quite depressed, and had delusions. PAST PSYCHIATRIC HISTORY: As indicated above, has had previous hospitalizations. Last one was last year. PAST MEDICAL HISTORY: 1. Type 2 diabetes. 2. Has neuropathy. 3. Had small-cell carcinoma of the right lung. SOCIAL HISTORY: Lives on her own, has declined support in the past, says has her daughter come in and check on her every couple of days. SUBSTANCE ABUSE HISTORY: Has been drinking regularly, particularly lately, has a history of regular alcohol use. MEDICATIONS: Please see the list, these included risperidone 0.5 mg twice a day, which is also listed as renewed, she is also on thiamine, multivitamin, folic acid, Lovenox. MENTAL STATUS EXAMINATION: She is neat. She is in hospital clothes, short hair, she is cooperative, there is no agitation. No psychomotor retardation. She answers questions briefly, logically, coherently. Affect restricted, but reactive. She remembered seeing me from some time ago, but she was not quite sure when. Does not appear internally preoccupied. No homicidal ideas or intents. No delusional ideations elicited at present. No fluctuation of consciousness. Sensorium is clear at present. No difficulties maintaining and shifting attention. Judgment is fair. Insight is somewhat poor. ASSESSMENT: 1. Delirium, multifactorial. 2. Alcohol dependence. 3. Major depressive disorder by history (she has had psychotic features in the past when depressed). Currently says feels okay, denies any suicidal thoughts or intents. There is no evidence as such of any psychosis, has poor short-term memory, is alert, oriented to time and place and person, and she was off by a day, as regards time. Her judgment is fair at best, insight is poor. RECOMMENDATIONS: 1. I would suggest starting Celexa at 10 mg daily, can be titrated to the previous dose of 20 mg a day in 1-2 weeks. 2. Continue risperidone 0.5 mg twice a day. 3. Optimize her current medical care. She remains prone to delirium. 4. Refer to outpatient psychiatry if patient is being discharged, she was attending [facility] in the past. 5. Also refer to addictions treatment. 6. Most likely requires assistance to function in the community, such as case management, and assistance from social work nurse. Thank you for the consult. If there are any questions, please call. The assessment took 30 minutes.
[2017-03-10 06:00] VITALS: BP 107/57
[2017-03-10 06:25] LABS: MEAN CORPUSCULAR HEMOGLOBIN 31.8 pg (27.0-33.0); MEAN CORPUSCULAR HGB CONC 33.9 g/dl (32.0-36.5); MEAN CORPUSCULAR VOLUME 93.8 fl (80.0-96.0); RED CELL DISTRIBUTION WIDTH 15.9 % (11.5-14.5); WHITE BLOOD COUNT 8.3 10^3/uL (4.0-10.0)
[2017-03-10 06:45] LABS: ANION GAP 6 MEQ/L (8-16); BLOOD UREA NITROGEN 8 MG/DL (7-18); CARBON DIOXIDE LEVEL 28 MEQ/L (21-32); CHLORIDE LEVEL 102 MEQ/L (98-107); CREATININE FOR GFR 0.44 MG/DL (0.55-1.02); GLOMERULAR FILTRATION RATE > 60.0 (>45); GLUCOSE, FASTING 103 MG/DL (80-110); POTASSIUM SERUM 3.9 MEQ/L (3.5-5.1); SODIUM LEVEL 136 MEQ/L (136-145)
[2017-03-10] MEDS ORDERED: RISP0.5T21 PO (06:52)
[2017-03-10] MEDS ORDERED: FOLI1TAB4 PO (06:52)
[2017-03-10] MEDS ORDERED: THIA100TA PO (06:52)
[2017-03-10] MEDS ORDERED: CELE10TA PO (06:52)
[2017-03-10] MEDS: THIAMINE 100 MG TAB PO SCH (08:53)
[2017-03-10] MEDS: MULTIVITAMINS/MINERALS THERAP 1 TAB PO SCH (08:53)
[2017-03-10] MEDS: risperiDONE 0.5 MG TAB PO SCH (08:53)
[2017-03-10] MEDS: FOLIC ACID 1 MG TAB PO SCH (08:53)
[2017-03-10] MEDS: ENOXAPARIN 40 MG/0.4 ML SYRINGE (J1650) SC SCH (08:54)
--- NOTE | 2017-03-10 15:35 | DSES ---
DATE OF ADMISSION: 03/01/2017 DATE OF DISCHARGE: 03/10/2017 SPECIALISTS INVOLVED IN HER CARE: Included: Dr. De Oliveira. There were no complications during her stay. No procedures performed during her stay. DISCHARGE DIAGNOSES: 1. Metabolic encephalopathy. 2. Symptomatic hyponatremia. 3. Gait dysfunction. 4. Chronic alcoholism. 5. Type 2 diabetes. 6. Depression. 7. Thrombocytopenia. 8. Depression with psychotic features. SUMMARY: She was living alone. She was found to be speaking nonsense. She was drinking a large amount of beer, not taking her psychiatric medications, was admitted to the hospitalist service and was found to be hyponatremic and hypotensive. The hypotension was thought to be related to difficulty reading her blood pressure given her underlying vascular disease. She improved slowly. She did have a 2D echocardiogram done which showed normal diastolic function, normal left ventricular ejection fraction. Metabolic encephalopathy improved. She did develop diarrhea which appeared to be transient. She was seen by physical therapy and eventually psychiatry. She was restarted on psychiatric medications with plan for discharge. She was seen by physical therapy but thought appropriate to return home with her daughter with close supervision. She has improved on the day of discharge even beyond that point. Temperature 97.1, pulse 112, respiratory rate 18, blood pressure 107/57, 91% on room air. She is awake, appropriately interactive, remembers me from previous encounters, is a reasonable historian. Mucous membranes are moist. Neck is supple. Breathing is symmetrical and rested. Heart is distant sounding. She is not tachycardic on my examination. Abdomen is soft, doughy, nontender. LABORATORY DATA: White cell count 8.3, hemoglobin 12.8. BUN 8, creatinine 0.44. Urine sodium is 136. DISCHARGE PLAN: Followup with Dr. Denny on 03/15/2017 at 11:30 a.m. Activity as tolerated. Diet as tolerated. Followup with [facility] for psychiatry. Followup with the addictions walk-in clinic. MEDICATIONS AT THE TIME OF DISCHARGE: Include: - citalopram 10 mg by mouth daily - folic acid 1 mg by mouth daily - Risperdal 0.5 mg by mouth twice a day - thiamine 100 mg by mouth daily - continue Anoro Ellipta inhaled daily - continue atorvastatin 80 mg by mouth daily Please note it would be reasonable to followup the patient's basic metabolic panel. At discharge, she also had home nursing made available to her at the time of discharge for assistance with managing her medications.
== END 2017-03-10 15:29 | disposition home health service (06) | DRG 52 ==
LOC: M ED 12:27 → M ED INP 20:10 → M MSPAV 23:41
PROVIDERS: ADMIT Internal Medicine Nephrology; ATTEND Internal Medicine
DX: G93.41 Metabolic encephalopathy (principal); E11.40 Type 2 diabetes mellitus with diabetic neuropathy, unspecified; F32.3 Major depressive disorder, single episode, severe with psychotic features; E87.1 Hypo-osmolality and hyponatremia; Z85.118 Personal history of other malignant neoplasm of bronchus and lung; F10.20 Alcohol dependence, uncomplicated; R29.6 Repeated falls; Z92.21 Personal history of antineoplastic chemotherapy; Z92.3 Personal history of irradiation; Z90.711 Acquired absence of uterus with remaining cervical stump; Z87.891 Personal history of nicotine dependence; Z79.899 Other long term (current) drug therapy

== ENCOUNTER → 2017-03-23 | Outpatient (CLI) | payer OTHER ==
[~2017-03-23] MED LIST changes: +CITA10TA5 PO; +PATIENT COMMENT; +RISP1TAB3 PO
--- NOTE | 2017-03-23 19:13 | REP ---
Whole body PET CT scan: Comparisons are the prior whole body PET CT scan dated 06/02/2016, recent chest CT dated 02/28/2017 and recent PA and lateral views of the chest dated 03/09 2017. Whole body PET CT scan is performed from skull base to the upper thighs. Neck and supraclavicular areas: There are no hypermetabolic foci. Chest: The right upper lobe hypermetabolic focus identified on the previous study now demonstrates non hypermetabolic uptake with a maximal standard uptake value of 2.8. There is new borderline hypermetabolic uptake in the T2 vertebral body with a maximal standard uptake value of 3.5. There is borderline hypermetabolic uptake in a normal size left hilar node with a maximal standard uptake value of 3.9. There are no other foci in the chest. Abdomen, pelvis and upper thighs: There are no hypermetabolic foci. Impression: The initial hypermetabolic focus in the upper lobe of the right lung now demonstrates non hypermetabolic uptake. There is new borderline hypermetabolic uptake in the T2 vertebral body and in a normal size left hilar node. There are no other hypermetabolic foci. The study is performed with 10 mCi of F 18 FDG. Signed by Logan Bishop MD 03/23/2017 07:04 P
== END ==
LOC: M PLARAD 13:17
PROVIDERS: ATTEND Nurse Practitioner Family
DX: R91.8 Other nonspecific abnormal finding of lung field (principal)
CPT/HCPCS: 78815; A9552

== ENCOUNTER → 2017-07-11 | Outpatient (REF) | payer OTHER ==
[2017-07-11 13:18] LABS: APPEARANCE, URINE CLEAR (CLEAR); BACTERIA, URINE AUTO NEGATIVE (NEGATIVE); BILIRUBIN, URINE AUTO NEGATIVE (NEGATIVE); BLOOD, URINE BLOOD NEGATIVE (NEGATIVE); COLOR, URINE YELLOW (YELLOW); GLUCOSE, URINE (UA) AUTO NEGATIVE (NEGATIVE); KETONE, URINE AUTO NEGATIVE (NEGATIVE); LEUKOCYTE ESTERASE, URINE AUTO NEGATIVE (NEGATIVE); NITRITE, URINE AUTO NEGATIVE (NEGATIVE); PROTEIN, URINE AUTO NEGATIVE (NEGATIVE); RBC, URINE AUTO 0 /HPF (0-3); SPECIFIC GRAVITY URINE AUTO 1.012 (1.002-1.035); SQUAMOUS EPITHELIAL CELL UR AU 1 /HPF (0-6); UROBILINOGEN, URINE AUTO 0.2 mg/dL (0.0-2.0); WBC, URINE AUTO 0 /HPF (0-3)
[2017-07-11 13:49] LABS: ANION GAP 4 MEQ/L (8-16); BLOOD UREA NITROGEN 13 MG/DL (7-18); CALCIUM LEVEL 9.1 MG/DL (8.8-10.2); CARBON DIOXIDE LEVEL 33 MEQ/L (21-32); CHLORIDE LEVEL 100 MEQ/L (98-107); CREATININE FOR GFR 0.66 MG/DL (0.55-1.30); GLOMERULAR FILTRATION RATE > 60.0 (>45); GLUCOSE, FASTING 124 MG/DL (70-100); POTASSIUM SERUM 4.8 MEQ/L (3.5-5.1); SODIUM LEVEL 137 MEQ/L (136-145)
[2017-07-11 13:59] LABS: ESTIMATED AVERAGE GLUCOSE 160 MG/DL (60-110); HEMOGLOBIN A1c 7.2 %
[2017-07-11 14:00] LABS: CREATININE, URINE 54.5 MG/DL; MALB URINE SIEMENS 19.6 MG/L; MAU/CREAT RATIO 35.9 MCG/MG (0.0-30.0)
== END ==
LOC: M SFHCPLAZ 10:17
DX: E11.9 Type 2 diabetes mellitus without complications (principal)
CPT/HCPCS: 83036

== ENCOUNTER 2017-07-12 13:49 | Emergency (ER) | payer OTHER ==
[2017-07-12] MEDS: NS 1,000 ML IV (14:45)
[2017-07-12 14:49] LABS: BASO # 0.1 10^3/uL (0.0-0.2); BASO % 0.6 % (0.0-1.0); EOS # 0.1 10^3/uL (0.0-0.50); EOS % 0.7 % (0.0-3.0); HEMATOCRIT 48.6 % (36.0-47.0); IMMATURE GRANULOCYTE # 0.1 10^3/uL (0-0); IMMATURE GRANULOCYTE % 0.8 % (0-0); LYMPH # 3.6 10^3/uL (1.5-4.5); MEAN CORPUSCULAR HEMOGLOBIN 31.4 pg (27.0-33.0); MEAN CORPUSCULAR HGB CONC 32.9 g/dl (32.0-36.5); MEAN CORPUSCULAR VOLUME 95.5 fl (80.0-96.0); MONO # 1.2 10^3/uL (0.0-0.8); MONO % 7.6 % (0.0-5.0); NEUTROPHILS # 11.1 10^3/uL (1.8-7.7); NEUTROPHILS % 68.3 % (36.0-66.0); PLATELET COUNT, AUTOMATED 271 10^3/uL (150-450); RED BLOOD COUNT 5.09 10^6/uL (4.00-5.40); RED CELL DISTRIBUTION WIDTH 13.4 % (11.5-14.5); WHITE BLOOD COUNT 16.3 10^3/uL (4.0-10.0)
[2017-07-12 14:59] LABS: ANION GAP 4 MEQ/L (8-16); BLOOD UREA NITROGEN 10 MG/DL (7-18); CARBON DIOXIDE LEVEL 32 MEQ/L (21-32); CHLORIDE LEVEL 99 MEQ/L (98-107); CREATININE FOR GFR 0.64 MG/DL (0.55-1.30); GLOMERULAR FILTRATION RATE > 60.0 (>45); GLUCOSE, FASTING 120 MG/DL (70-100); INR 0.95; MAGNESIUM LEVEL 2.5 MG/DL (1.8-2.4); PROTHROMBIN TIME 12.8 SECONDS (12.4-14.5); SODIUM LEVEL 135 MEQ/L (136-145)
[2017-07-12 15:00] LABS: PARTIAL THROMBOPLASTIN TIME 29.7 SECONDS (26.8-37.9)
[2017-07-12 15:03] LABS: CPK CREATINE PHOSPHOKINASE 65 U/L (26-192); ETHYL ALCOHOL (ETHANOL) < 0.003 % (0.000-0.010); TROPONIN I < 0.02 NG/ML (< 0.10)
[2017-07-12 15:07] LABS: AMPHETAMINES LEVEL URINE NEGATIVE (NEGATIVE); BARBITURATES URINE NEGATIVE (NEGATIVE); BENZODIAZEPINES URINE NEGATIVE (NEGATIVE); CANNABINOIDS URINE NEGATIVE (NEGATIVE); COCAINE METABOLITE URINE NEGATIVE (NEGATIVE); METHADONE URINE NEGATIVE (NEGATIVE); OPIATES URINE NEGATIVE (NEGATIVE); PHENCYCLIDINE URINE NEGATIVE (NEGATIVE)
[2017-07-12 15:11] LABS: CK-MB VALUE MASS 3.4 NG/ML (0.0-3.6); MB/CK RELATIVE INDEX 5.23 (< OR =4)
== END 2017-07-12 16:10 | disposition home or self-care (01) ==
LOC: M ED 13:49
DX: R42 Dizziness and giddiness (principal); R29.6 Repeated falls; I10 Essential (primary) hypertension; J44.9 Chronic obstructive pulmonary disease, unspecified; Z85.118 Personal history of other malignant neoplasm of bronchus and lung; F17.200 Nicotine dependence, unspecified, uncomplicated; Z79.899 Other long term (current) drug therapy
CPT/HCPCS: 70450

== ENCOUNTER → 2017-07-22 | Outpatient (CLI) | payer OTHER | LOC: M RAD 10:14 | DX: K70.9 Alcoholic liver disease, unspecified (principal) | CPT/HCPCS: 76705 ==

== ENCOUNTER → 2017-08-09 | Outpatient (CLI) | payer OTHER | LOC: M PLARAD 08:47 | DX: C34.11 Malignant neoplasm of upper lobe, right bronchus or lung (principal) | CPT/HCPCS: 78815 ==

== ENCOUNTER 2017-08-18 13:00 | Emergency (ER) | payer OTHER ==
[2017-08-18 14:09] LABS: BASO # 0.1 10^3/uL (0.0-0.2); BASO % 0.6 % (0.0-1.0); EOS # 0.1 10^3/uL (0.0-0.50); HEMATOCRIT 48.6 % (36.0-47.0); IMMATURE GRANULOCYTE % 0.6 % (0-3.0); LYMPH # 2.8 10^3/uL (1.5-4.5); MEAN CORPUSCULAR HEMOGLOBIN 31.2 pg (27.0-33.0); MEAN CORPUSCULAR HGB CONC 32.9 g/dl (32.0-36.5); MEAN CORPUSCULAR VOLUME 94.7 fl (80.0-96.0); MONO # 1.1 10^3/uL (0.0-0.8); MONO % 7.8 % (0.0-5.0); NEUTROPHILS # 9.3 10^3/uL (1.8-7.7); PLATELET COUNT, AUTOMATED 281 10^3/uL (150-450); RED BLOOD COUNT 5.13 10^6/uL (4.00-5.40); RED CELL DISTRIBUTION WIDTH 14.4 % (11.5-14.5); WHITE BLOOD COUNT 13.5 10^3/uL (4.0-10.0)
[2017-08-18] MEDS: ALBUTEROL SULFATE 2.5 MG/0.5 ML INH NEB SOLN INH (14:13)
[2017-08-18] MEDS: IPRATROPIUM 0.5MG/ALBUTEROL 2.5MG INH SOL UD 3ML (DUONEB)(J7620) NEB (14:13)
[2017-08-18 14:18] LABS: ANION GAP 7 MEQ/L (8-16); BLOOD UREA NITROGEN 8 MG/DL (7-18); CALCIUM LEVEL 9.1 MG/DL (8.8-10.2); CARBON DIOXIDE LEVEL 31 MEQ/L (21-32); CHLORIDE LEVEL 99 MEQ/L (98-107); CREATININE FOR GFR 0.68 MG/DL (0.55-1.30); GLOMERULAR FILTRATION RATE > 60.0 (>45); GLUCOSE, FASTING 125 MG/DL (70-100); POTASSIUM SERUM 4.1 MEQ/L (3.5-5.1); SODIUM LEVEL 137 MEQ/L (136-145)
[2017-08-18 14:22] LABS: CPK CREATINE PHOSPHOKINASE 39 U/L (26-192); ETHYL ALCOHOL (ETHANOL) < 0.003 % (0.000-0.010); TROPONIN I < 0.02 NG/ML (< 0.10)
[2017-08-18 14:28] LABS: CK-MB VALUE MASS 1.6 NG/ML (0.0-3.6)
[2017-08-18 14:31] LABS: PROTHROMBIN TIME 13.3 SECONDS (12.4-14.5)
[2017-08-18 14:59] LABS: KETONE, URINE AUTO RFX NEGATIVE (NEGATIVE); LEUKOCYTE ESTERASE UR AUTO RFX NEGATIVE (NEGATIVE); MUCUS, URINE RFX SMALL (NEGATIVE); NITRITE, URINE AUTO RFX NEGATIVE (NEGATIVE); RBC, URINE AUTO RFX 0 /HPF (0-3); SPECIFIC GRAVITY UR AUTO RFX 1.006 (1.002-1.035); SQUAM EPITHELIAL CELL UR AURFX 0 /HPF (0-6); WBC, URINE AUTO RFX 0 /HPF (0-3)
[2017-08-18 15:08] LABS: AMPHETAMINES LEVEL URINE NEGATIVE (NEGATIVE); BARBITURATES URINE NEGATIVE (NEGATIVE); BENZODIAZEPINES URINE NEGATIVE (NEGATIVE); CANNABINOIDS URINE NEGATIVE (NEGATIVE); COCAINE METABOLITE URINE NEGATIVE (NEGATIVE); METHADONE URINE NEGATIVE (NEGATIVE); OPIATES URINE NEGATIVE (NEGATIVE); PHENCYCLIDINE URINE NEGATIVE (NEGATIVE)
[2017-08-18] MEDS: NS 1,000 ML IV (15:59)
== END 2017-08-18 18:23 | disposition home or self-care (01) ==
LOC: M ED 13:00
DX: R55 Syncope and collapse (principal); J44.9 Chronic obstructive pulmonary disease, unspecified; F17.210 Nicotine dependence, cigarettes, uncomplicated; Z79.899 Other long term (current) drug therapy
CPT/HCPCS: 71046

== ENCOUNTER → 2017-10-04 | Outpatient (CLI) | payer OTHER ==
[~2017-10-04] MED LIST changes: -ANOR1AER INH; -ATOR80TA59 PO; -CELE10TA PO; -CELE20TA PO; -CITA10TA5 PO; -CITA20TA4 PO; -FOLI1TAB4 PO; -FOLI1TAB86 PO; -GABA100C PO; -GABA300C2 PO; -HYDR-3363 PO; -METF500T13 PO; -MULT1CHW26 PO; -PATIENT COMMENT; +PROHANCE 279.3MG/ML 15ML VIAL (A9576) As Ordered; -RISP0.5T21 PO; -RISP1TAB3 PO; -RISP2TAB32 PO; -THIA100TA PO; -TRAZ100T2 PO; -TRAZ25TA PO; -TRAZO50TA PO; -VITA100T2 PO; -VITMTA OR
== END ==
LOC: M RAD 12:03
DX: I73.9 Peripheral vascular disease, unspecified (principal); R55 Syncope and collapse; H81.49 Vertigo of central origin, unspecified ear
CPT/HCPCS: A9576

== ENCOUNTER 2018-01-12 14:54 | Emergency (ER) | payer OTHER ==
[2018-01-12 17:29] LABS: HEMOGLOBIN 17.8 g/dl (12.0-15.5); MEAN CORPUSCULAR HGB CONC 33.6 g/dl (32.0-36.5); MEAN CORPUSCULAR VOLUME 89.2 fl (80.0-96.0); PLATELET COUNT, AUTOMATED 275 10^3/uL (150-450); RED BLOOD COUNT 5.94 10^6/uL (4.00-5.40); RED CELL DISTRIBUTION WIDTH 16.1 % (11.5-14.5); WHITE BLOOD COUNT 16.6 10^3/uL (4.0-10.0)
[2018-01-12 18:01] LABS: ALBUMIN 2.9 GM/DL (3.2-5.2); ALBUMIN/GLOBULIN RATIO 0.62 (1.00-1.93); ALKALINE PHOSPHATASE 113 U/L (45-117); ALT/SGPT 13 U/L (12-78); ANION GAP 9 MEQ/L (8-16); AST/SGOT 11 U/L (7-37); BILIRUBIN,DIRECT 0.1 MG/DL (0.0-0.2); BILIRUBIN,TOTAL 0.5 MG/DL (0.2-1.0); BLOOD UREA NITROGEN 4 MG/DL (7-18); CALCIUM LEVEL 8.6 MG/DL (8.8-10.2); CARBON DIOXIDE LEVEL 31 MEQ/L (21-32); CHLORIDE LEVEL 96 MEQ/L (98-107); CREATININE FOR GFR 0.67 MG/DL (0.55-1.30); ETHYL ALCOHOL (ETHANOL) 0.003 % (0.000-0.010); GLOMERULAR FILTRATION RATE > 60.0 (>45); GLUCOSE, FASTING 87 MG/DL (70-100); POTASSIUM SERUM 3.8 MEQ/L (3.5-5.1); SALICYLATE LEVEL 4.5 MG/DL (5.0-30.0); SODIUM LEVEL 136 MEQ/L (136-145); TOTAL PROTEIN 7.6 GM/DL (6.4-8.2)
[2018-01-12 18:07] LABS: AMPHETAMINES LEVEL URINE NEGATIVE (NEGATIVE); BARBITURATES URINE NEGATIVE (NEGATIVE); BENZODIAZEPINES URINE NEGATIVE (NEGATIVE); CANNABINOIDS URINE NEGATIVE (NEGATIVE); COCAINE METABOLITE URINE NEGATIVE (NEGATIVE); METHADONE URINE NEGATIVE (NEGATIVE); OPIATES URINE NEGATIVE (NEGATIVE); PHENCYCLIDINE URINE NEGATIVE (NEGATIVE)
[2018-01-12 18:23] LABS: ACETAMINOPHEN LEVEL < 2.0 UG/ML (10.0-30.0)
== END 2018-01-12 19:06 | disposition home or self-care (01) ==
LOC: M ED 14:54
DX: F32.9 Major depressive disorder, single episode, unspecified (principal); F03.90 Unspecified dementia, unspecified severity, without behavioral disturbance, psychotic disturbance, mood disturbance, and anxiety; C34.90 Malignant neoplasm of unspecified part of unspecified bronchus or lung; Z86.73 Personal history of transient ischemic attack (TIA), and cerebral infarction without residual deficits; Z72.0 Tobacco use; Z95.9 Presence of cardiac and vascular implant and graft, unspecified; G31.9 Degenerative disease of nervous system, unspecified; I67.2 Cerebral atherosclerosis; Z79.899 Other long term (current) drug therapy
CPT/HCPCS: 71046

== ENCOUNTER → 2018-01-17 | Outpatient (CLI) | payer OTHER | LOC: M RAD 10:50 | DX: I65.23 Occlusion and stenosis of bilateral carotid arteries (principal) | CPT/HCPCS: 93880 ==

== ENCOUNTER → 2018-01-30 | Outpatient (CLI) | payer OTHER ==
[2018-01-30 18:07] LABS: HEMATOCRIT 53.6 % (36.0-47.0); HEMOGLOBIN 18.1 g/dl (12.0-15.5); MEAN CORPUSCULAR HEMOGLOBIN 30.3 pg (27.0-33.0); MEAN CORPUSCULAR HGB CONC 33.8 g/dl (32.0-36.5); MEAN CORPUSCULAR VOLUME 89.6 fl (80.0-96.0); PLATELET COUNT, AUTOMATED 278 10^3/uL (150-450); RED BLOOD COUNT 5.98 10^6/uL (4.00-5.40); RED CELL DISTRIBUTION WIDTH 16.7 % (11.5-14.5); WHITE BLOOD COUNT 15.6 10^3/uL (4.0-10.0)
[2018-01-30 18:13] LABS: ANION GAP 7 MEQ/L (8-16); BLOOD UREA NITROGEN 4 MG/DL (7-18); CALCIUM LEVEL 8.8 MG/DL (8.8-10.2); CARBON DIOXIDE LEVEL 33 MEQ/L (21-32); CHLORIDE LEVEL 95 MEQ/L (98-107); CREATININE FOR GFR 0.71 MG/DL (0.55-1.30); GLOMERULAR FILTRATION RATE > 60.0 (>45); GLUCOSE, FASTING 70 MG/DL (70-100); POTASSIUM SERUM 3.7 MEQ/L (3.5-5.1); SODIUM LEVEL 135 MEQ/L (136-145)
[2018-01-30 18:16] LABS: ADD MANUAL DIFFER YES; DIFF SLIDE NUMBER 356; POSITIVE MORPH POS FLAG
[2018-01-30 19:26] LABS: ATYPICAL LYMPH 9 % (0-5); LYMPHOCYTES 26 % (16-52); MONOCYTES 3 % (0-8); NEUTROPHILS 62 % (35-75)
[2018-01-30 19:27] LABS: ANISOCYTOSIS 1+; PLATELET ESTIMATE NORMAL (NORMAL)
== END ==
LOC: M LAB 17:27
DX: I65.23 Occlusion and stenosis of bilateral carotid arteries (principal)
CPT/HCPCS: 80048

== ENCOUNTER 2018-02-19 11:17 | Inpatient (IN) | payer MEDICAID, OTHER ==
[2018-02-19 12:07] LABS: BASO # 0.1 10^3/uL (0.0-0.2); BASO % 0.5 % (0.0-1.0); EOS # 0.1 10^3/uL (0.0-0.50); EOS % 0.9 % (0.0-3.0); HEMATOCRIT 48.3 % (36.0-47.0); HEMOGLOBIN 16.5 g/dl (12.0-15.5); IMMATURE GRANULOCYTE % 0.4 % (0-3.0); LYMPH # 2.8 10^3/uL (1.5-4.5); LYMPH % 21.7 % (24.0-44.0); MEAN CORPUSCULAR HEMOGLOBIN 30.8 pg (27.0-33.0); MEAN CORPUSCULAR HGB CONC 34.2 g/dl (32.0-36.5); MEAN CORPUSCULAR VOLUME 90.1 fl (80.0-96.0); MONO # 0.7 10^3/uL (0.0-0.8); MONO % 5.2 % (0.0-5.0); NEUTROPHILS # 9.3 10^3/uL (1.8-7.7); NEUTROPHILS % 71.3 % (36.0-66.0); PLATELET COUNT, AUTOMATED 287 10^3/uL (150-450); RED BLOOD COUNT 5.36 10^6/uL (4.00-5.40); RED CELL DISTRIBUTION WIDTH 15.2 % (11.5-14.5)
[2018-02-19 12:08] LABS: BEDSIDE GLUCOSE 148 MG/DL (80-115)
[2018-02-19 12:08] LABS: VENOUS BASE EXCESS 4.3 (-2.0-2.0); VENOUS HCO3 33.1 MEQ/L (23.0-27.0); VENOUS O2 SATURATION 47.9 % (60.0-80.0); VENOUS PARTIAL PRESSURE CO2 66.1 mmHg (38.0-50.0); VENOUS PARTIAL PRESSURE O2 27.6 mmHg (30.0-50.0); VENOUS PH 7.317 UNITS (7.330-7.430); VENOUS STANDARD HCO3 26.7 MEQ/L; VENOUS TOTAL CO2 35.1 MEQ/L (24.0-28.0)
[2018-02-19 12:32] LABS: AMMONIA 16 uMOL/L (<32)
[2018-02-19] MEDS: NS 1,000 ML IV ×2 (12:34→14:52)
[2018-02-19 12:36] LABS: ALBUMIN 2.9 GM/DL (3.2-5.2); ALBUMIN/GLOBULIN RATIO 0.71 (1.00-1.93); ALT/SGPT 8 U/L (12-78); ANION GAP 9 MEQ/L (8-16); AST/SGOT 8 U/L (7-37); BILIRUBIN,DIRECT 0.2 MG/DL (0.0-0.2); BILIRUBIN,TOTAL 0.5 MG/DL (0.2-1.0); BLOOD UREA NITROGEN 7 MG/DL (7-18); CALCIUM LEVEL 8.5 MG/DL (8.8-10.2); CARBON DIOXIDE LEVEL 31 MEQ/L (21-32); CHLORIDE LEVEL 93 MEQ/L (98-107); CREATININE FOR GFR 0.73 MG/DL (0.55-1.30); GLOMERULAR FILTRATION RATE > 60.0 (>45); GLUCOSE, FASTING 123 MG/DL (70-100); POTASSIUM SERUM 2.8 MEQ/L (3.5-5.1); SALICYLATE LEVEL 5.1 MG/DL (5.0-30.0); SODIUM LEVEL 133 MEQ/L (136-145); TROPONIN I < 0.02 NG/ML (< 0.10)
[2018-02-19 12:37] LABS: ACETAMINOPHEN LEVEL < 2.0 UG/ML (10.0-30.0); ETHYL ALCOHOL (ETHANOL) < 0.003 % (0.000-0.010)
[2018-02-19 12:47] LABS: CK-MB VALUE MASS 1.4 NG/ML (<3.6); CPK CREATINE PHOSPHOKINASE 35 U/L (26-192)
[2018-02-19 12:48] LABS: ALKALINE PHOSPHATASE 97 U/L (45-117)
[2018-02-19 13:04] LABS: MAGNESIUM LEVEL 1.9 MG/DL (1.8-2.4)
[2018-02-19] MEDS: POTASSIUM CHLORIDE 10 MEQ SR TABLET PO ×2 (13:11→18:35)
[2018-02-19 13:14] LABS: LACTIC ACID SEPSIS PROTOCOL 2.9 MMOL/L (0.4-2.0)
[2018-02-19 13:17] LABS: KETONE, URINE AUTO RFX NEGATIVE (NEGATIVE); LEUKOCYTE ESTERASE UR AUTO RFX NEGATIVE (NEGATIVE); NITRITE, URINE AUTO RFX NEGATIVE (NEGATIVE); RBC, URINE AUTO RFX 0 /HPF (0-3); SPECIFIC GRAVITY UR AUTO RFX 1.001 (1.002-1.035); SQUAM EPITHELIAL CELL UR AURFX 0 /HPF (0-6); WBC, URINE AUTO RFX 0 /HPF (0-3)
[2018-02-19 13:19] LABS: OSMOLALITY SERUM 275 MOSM/KG (280-301)
[2018-02-19 13:35] LABS: AMPHETAMINES LEVEL URINE NEGATIVE (NEGATIVE); BARBITURATES URINE NEGATIVE (NEGATIVE); BENZODIAZEPINES URINE NEGATIVE (NEGATIVE); CANNABINOIDS URINE NEGATIVE (NEGATIVE); COCAINE METABOLITE URINE NEGATIVE (NEGATIVE); METHADONE URINE NEGATIVE (NEGATIVE); OPIATES URINE NEGATIVE (NEGATIVE); PHENCYCLIDINE URINE NEGATIVE (NEGATIVE)
[2018-02-19] MEDS: ACETAMINOPHEN TAB 650MG DOSE (2X325MG) PO (16:26)
[2018-02-19 20:40] LABS: POTASSIUM SERUM 4.3 MEQ/L (3.5-5.1)
[2018-02-19] MEDS ORDERED: MOM 30ML SUSPENSION UDC PO (21:15)
[2018-02-19] MEDS ORDERED: MAALOX 30 ML SUSP *UDC PO (21:15)
[2018-02-19] MEDS ORDERED: traZODone 50 MG TAB PO (21:15)
[2018-02-19] MEDS ORDERED: ACETAMINOPHEN TAB 650MG DOSE (2X325MG) PO (21:15)
[2018-02-20] MEDS: NICOTINE 21MG/24HR 1 EA TRANSDERMAL TD (08:54)
[2018-02-20] MEDS: CLOPIDOGREL 75 MG TAB PO (10:13)
[2018-02-20] MEDS: ASPIRIN 81 MG CHEW TABLET PO (10:13)
[2018-02-20] MEDS ORDERED: ALBUTEROL 90 MCG/ACT 8GM HFA INHALER INH (10:30)
[2018-02-20] MEDS: ATORVASTATIN 20 MG TAB PO (10:39)
[2018-02-20 10:59] LABS: HEMATOCRIT 42.4 % (36.0-47.0); HEMOGLOBIN 14.2 g/dl (12.0-15.5); MEAN CORPUSCULAR HEMOGLOBIN 30.9 pg (27.0-33.0); MEAN CORPUSCULAR HGB CONC 33.5 g/dl (32.0-36.5); MEAN CORPUSCULAR VOLUME 92.2 fl (80.0-96.0); PLATELET COUNT, AUTOMATED 257 10^3/uL (150-450); RED CELL DISTRIBUTION WIDTH 15.7 % (11.5-14.5); WHITE BLOOD COUNT 12.2 10^3/uL (4.0-10.0)
[2018-02-20] MEDS: CitaloPRAM (CeleXA) 10 MG TABLET PO (14:06)
[2018-02-20 14:45] LABS: ALBUMIN 2.8 GM/DL (3.2-5.2); ALKALINE PHOSPHATASE 98 U/L (45-117); ALT/SGPT 8 U/L (12-78); ANION GAP 8 MEQ/L (8-16); AST/SGOT 9 U/L (7-37); BILIRUBIN,TOTAL 0.2 MG/DL (0.2-1.0); BLOOD UREA NITROGEN 12 MG/DL (7-18); CALCIUM LEVEL 8.1 MG/DL (8.8-10.2); CARBON DIOXIDE LEVEL 27 MEQ/L (21-32); CHLORIDE LEVEL 104 MEQ/L (98-107); GLOMERULAR FILTRATION RATE > 60.0 (>45); POTASSIUM SERUM 4.3 MEQ/L (3.5-5.1); SODIUM LEVEL 139 MEQ/L (136-145); TOTAL PROTEIN 6.3 GM/DL (6.4-8.2)
[2018-02-20 17:56] LABS: GLUCOSE, FASTING 90 MG/DL (70-100)
[2018-02-20] MEDS: risperiDONE 1 MG TAB PO (21:41)
[2018-02-20] MEDS: MIRTAZAPINE 15 MG TAB PO (21:41)
[2018-02-21] MEDS: ATORVASTATIN 20 MG TAB PO (08:25)
[2018-02-21] MEDS: ASPIRIN 81 MG CHEW TABLET PO (08:25)
[2018-02-21] MEDS: CLOPIDOGREL 75 MG TAB PO (08:25)
[2018-02-21] MEDS: CitaloPRAM (CeleXA) 10 MG TABLET PO (08:25)
[2018-02-21] MEDS: NICOTINE 21MG/24HR 1 EA TRANSDERMAL TD (08:26)
[2018-02-21 12:04] LABS: HEMATOCRIT 41.4 % (36.0-47.0); HEMOGLOBIN 14.2 g/dl (12.0-15.5); MEAN CORPUSCULAR HEMOGLOBIN 30.5 pg (27.0-33.0); MEAN CORPUSCULAR HGB CONC 34.3 g/dl (32.0-36.5); PLATELET COUNT, AUTOMATED 272 10^3/uL (150-450); RED BLOOD COUNT 4.65 10^6/uL (4.00-5.40); RED CELL DISTRIBUTION WIDTH 15.2 % (11.5-14.5); WHITE BLOOD COUNT 14.4 10^3/uL (4.0-10.0)
[2018-02-21 12:52] LABS: ALBUMIN 2.5 GM/DL (3.2-5.2); ALKALINE PHOSPHATASE 80 U/L (45-117); ALT/SGPT 9 U/L (12-78); ANION GAP 6 MEQ/L (8-16); AST/SGOT 9 U/L (7-37); BILIRUBIN,TOTAL 0.2 MG/DL (0.2-1.0); BLOOD UREA NITROGEN 10 MG/DL (7-18); CALCIUM LEVEL 8.2 MG/DL (8.8-10.2); CARBON DIOXIDE LEVEL 30 MEQ/L (21-32); CHLORIDE LEVEL 102 MEQ/L (98-107); CREATININE FOR GFR 0.59 MG/DL (0.55-1.30); GLOMERULAR FILTRATION RATE > 60.0 (>45); GLUCOSE, FASTING 80 MG/DL (70-100); POTASSIUM SERUM 4.2 MEQ/L (3.5-5.1); SODIUM LEVEL 138 MEQ/L (136-145)
[2018-02-21 16:38] LABS: ALBUMIN/GLOBULIN RATIO 0.71 (1.00-1.93)
[2018-02-22 07:26] LABS: HEMATOCRIT 42.9 % (36.0-47.0); HEMOGLOBIN 14.5 g/dl (12.0-15.5); MEAN CORPUSCULAR HEMOGLOBIN 30.7 pg (27.0-33.0); MEAN CORPUSCULAR HGB CONC 33.8 g/dl (32.0-36.5); MEAN CORPUSCULAR VOLUME 90.9 fl (80.0-96.0); PLATELET COUNT, AUTOMATED 275 10^3/uL (150-450); RED BLOOD COUNT 4.72 10^6/uL (4.00-5.40); WHITE BLOOD COUNT 12.6 10^3/uL (4.0-10.0)
[2018-02-22 08:23] LABS: REASON FOR REVIEW WBC/LEUKEMIA/BLAST; SLIDE REVIEW Report; SOURCE PERIPHERAL SMEAR
[2018-02-22] MEDS: ATORVASTATIN 20 MG TAB PO (09:07)
[2018-02-22] MEDS: ASPIRIN 81 MG CHEW TABLET PO (09:07)
[2018-02-22] MEDS: CLOPIDOGREL 75 MG TAB PO (09:07)
[2018-02-22] MEDS: CitaloPRAM (CeleXA) 10 MG TABLET PO (09:07)
[2018-02-22] MEDS: NICOTINE 21MG/24HR 1 EA TRANSDERMAL TD (09:08)
[2018-02-22 09:28] LABS: ALBUMIN 2.7 GM/DL (3.2-5.2); ALBUMIN/GLOBULIN RATIO 0.75 (1.00-1.93); ALKALINE PHOSPHATASE 68 U/L (45-117); ALT/SGPT 11 U/L (12-78); ANION GAP 6 MEQ/L (8-16); AST/SGOT 11 U/L (7-37); BILIRUBIN,TOTAL 0.3 MG/DL (0.2-1.0); BLOOD UREA NITROGEN 11 MG/DL (7-18); CALCIUM LEVEL 8.4 MG/DL (8.8-10.2); CARBON DIOXIDE LEVEL 30 MEQ/L (21-32); CHLORIDE LEVEL 100 MEQ/L (98-107); CREATININE FOR GFR 0.58 MG/DL (0.55-1.30); GLOMERULAR FILTRATION RATE > 60.0 (>45); GLUCOSE, FASTING 116 MG/DL (70-100); POTASSIUM SERUM 3.6 MEQ/L (3.5-5.1); SODIUM LEVEL 136 MEQ/L (136-145); TOTAL PROTEIN 6.3 GM/DL (6.4-8.2)
[2018-02-23 08:33] LABS: HEMATOCRIT 43.2 % (36.0-47.0); HEMOGLOBIN 14.7 g/dl (12.0-15.5); MEAN CORPUSCULAR HEMOGLOBIN 30.8 pg (27.0-33.0); MEAN CORPUSCULAR VOLUME 90.6 fl (80.0-96.0); PLATELET COUNT, AUTOMATED 274 10^3/uL (150-450); RED BLOOD COUNT 4.77 10^6/uL (4.00-5.40); RED CELL DISTRIBUTION WIDTH 15.1 % (11.5-14.5); WHITE BLOOD COUNT 16.4 10^3/uL (4.0-10.0)
[2018-02-23] MEDS: NICOTINE 21MG/24HR 1 EA TRANSDERMAL TD (09:00)
[2018-02-23 09:15] LABS: ALBUMIN 2.8 GM/DL (3.2-5.2); ALBUMIN/GLOBULIN RATIO 0.76 (1.00-1.93); ALKALINE PHOSPHATASE 71 U/L (45-117); ALT/SGPT 13 U/L (12-78); ANION GAP 9 MEQ/L (8-16); AST/SGOT 12 U/L (7-37); BILIRUBIN,TOTAL 0.5 MG/DL (0.2-1.0); BLOOD UREA NITROGEN 9 MG/DL (7-18); CALCIUM LEVEL 8.3 MG/DL (8.8-10.2); CARBON DIOXIDE LEVEL 28 MEQ/L (21-32); CHLORIDE LEVEL 99 MEQ/L (98-107); CREATININE FOR GFR 0.56 MG/DL (0.55-1.30); GLOMERULAR FILTRATION RATE > 60.0 (>45); GLUCOSE, FASTING 128 MG/DL (70-100); POTASSIUM SERUM 3.7 MEQ/L (3.5-5.1); SODIUM LEVEL 136 MEQ/L (136-145); TOTAL PROTEIN 6.5 GM/DL (6.4-8.2)
[2018-02-23] MEDS: CitaloPRAM (CeleXA) 10 MG TABLET PO (09:36)
[2018-02-23] MEDS: CLOPIDOGREL 75 MG TAB PO (09:36)
[2018-02-23] MEDS: ASPIRIN 81 MG CHEW TABLET PO (09:36)
[2018-02-23] MEDS: ATORVASTATIN 20 MG TAB PO (09:37)
[2018-02-24] MEDS: NICOTINE 21MG/24HR 1 EA TRANSDERMAL TD (09:00)
[2018-02-24] MEDS: CitaloPRAM (CeleXA) 10 MG TABLET PO (09:14)
[2018-02-24] MEDS: CLOPIDOGREL 75 MG TAB PO (09:15)
[2018-02-24] MEDS: ATORVASTATIN 20 MG TAB PO (09:15)
[2018-02-24] MEDS: ASPIRIN 81 MG CHEW TABLET PO (09:15)
[2018-02-24] MEDS: FLUDROCORTISONE ACETATE 0.1 MG TAB PO (11:50)
[2018-02-24] MEDS: MULTIVITAMINS/MINERALS THERAP 1 TAB PO (11:50)
[2018-02-24] MEDS: THIAMINE 100 MG TAB PO (11:51)
[2018-02-24] MEDS: FOLIC ACID 1 MG TAB PO (11:51)
[2018-02-24] MEDS: ARIPiprazole 2 MG TAB PO (21:40)
[2018-02-25 07:42] LABS: HEMATOCRIT 40.3 % (36.0-47.0); HEMOGLOBIN 13.8 g/dl (12.0-15.5); MEAN CORPUSCULAR HEMOGLOBIN 30.5 pg (27.0-33.0); MEAN CORPUSCULAR HGB CONC 34.2 g/dl (32.0-36.5); PLATELET COUNT, AUTOMATED 267 10^3/uL (150-450); RED BLOOD COUNT 4.53 10^6/uL (4.00-5.40); RED CELL DISTRIBUTION WIDTH 14.9 % (11.5-14.5); WHITE BLOOD COUNT 12.6 10^3/uL (4.0-10.0)
[2018-02-25 07:54] LABS: ALBUMIN 2.8 GM/DL (3.2-5.2); ALBUMIN/GLOBULIN RATIO 0.78 (1.00-1.93); ALKALINE PHOSPHATASE 66 U/L (45-117); ALT/SGPT 14 U/L (12-78); ANION GAP 6 MEQ/L (8-16); AST/SGOT 12 U/L (7-37); BILIRUBIN,TOTAL 0.5 MG/DL (0.2-1.0); BLOOD UREA NITROGEN 10 MG/DL (7-18); CALCIUM LEVEL 8.3 MG/DL (8.8-10.2); CARBON DIOXIDE LEVEL 30 MEQ/L (21-32); CHLORIDE LEVEL 97 MEQ/L (98-107); CREATININE FOR GFR 0.48 MG/DL (0.55-1.30); GLOMERULAR FILTRATION RATE > 60.0 (>45); GLUCOSE, FASTING 84 MG/DL (70-100); POTASSIUM SERUM 4.1 MEQ/L (3.5-5.1); SODIUM LEVEL 133 MEQ/L (136-145); TOTAL PROTEIN 6.4 GM/DL (6.4-8.2)
[2018-02-25 07:55] LABS: ESTIMATED AVERAGE GLUCOSE 140 MG/DL (60-110); HEMOGLOBIN A1c 6.5 %
[2018-02-25] MEDS: FLUDROCORTISONE ACETATE 0.1 MG TAB PO (08:53)
[2018-02-25] MEDS: THIAMINE 100 MG TAB PO (08:53)
[2018-02-25] MEDS: ASPIRIN 81 MG CHEW TABLET PO (08:53)
[2018-02-25] MEDS: MULTIVITAMINS/MINERALS THERAP 1 TAB PO (08:53)
[2018-02-25] MEDS: FOLIC ACID 1 MG TAB PO (08:53)
[2018-02-25] MEDS: ATORVASTATIN 20 MG TAB PO (08:53)
[2018-02-25] MEDS: CitaloPRAM (CeleXA) 10 MG TABLET PO (08:53)
[2018-02-25] MEDS: CLOPIDOGREL 75 MG TAB PO (08:53)
[2018-02-25] MEDS: NICOTINE 21MG/24HR 1 EA TRANSDERMAL TD (08:54)
[2018-02-25 13:10] LABS: LACTIC ACID SEPSIS PROTOCOL 1.8 MMOL/L (0.4-2.0)
[2018-02-25] MEDS: ARIPiprazole 2 MG TAB PO (21:46)
[2018-02-26] MEDS: NICOTINE 21MG/24HR 1 EA TRANSDERMAL TD (07:54)
[2018-02-26] MEDS: CLOPIDOGREL 75 MG TAB PO (07:54)
[2018-02-26] MEDS: MULTIVITAMINS/MINERALS THERAP 1 TAB PO (07:54)
[2018-02-26] MEDS: CitaloPRAM (CeleXA) 10 MG TABLET PO (07:54)
[2018-02-26] MEDS: ASPIRIN 81 MG CHEW TABLET PO (07:54)
[2018-02-26] MEDS: FLUDROCORTISONE ACETATE 0.1 MG TAB PO (07:54)
[2018-02-26] MEDS: ATORVASTATIN 20 MG TAB PO (07:54)
[2018-02-26] MEDS: FOLIC ACID 1 MG TAB PO (07:54)
[2018-02-26] MEDS: THIAMINE 100 MG TAB PO (07:54)
[2018-02-26] MEDS: ARIPiprazole 2 MG TAB PO (21:54)
[2018-02-27 08:55] LABS: HEMOGLOBIN 12.9 g/dl (12.0-15.5); MEAN CORPUSCULAR HGB CONC 33.9 g/dl (32.0-36.5); MEAN CORPUSCULAR VOLUME 91.3 fl (80.0-96.0); PLATELET COUNT, AUTOMATED 238 10^3/uL (150-450); RED BLOOD COUNT 4.16 10^6/uL (4.00-5.40); RED CELL DISTRIBUTION WIDTH 14.6 % (11.5-14.5); WHITE BLOOD COUNT 12.5 10^3/uL (4.0-10.0)
[2018-02-27] MEDS: NICOTINE 21MG/24HR 1 EA TRANSDERMAL TD (09:00)
[2018-02-27] MEDS: CitaloPRAM (CeleXA) 10 MG TABLET PO (09:04)
[2018-02-27] MEDS: FOLIC ACID 1 MG TAB PO (09:04)
[2018-02-27] MEDS: FLUDROCORTISONE ACETATE 0.1 MG TAB PO (09:04)
[2018-02-27] MEDS: ASPIRIN 81 MG CHEW TABLET PO (09:04)
[2018-02-27] MEDS: ATORVASTATIN 20 MG TAB PO (09:05)
[2018-02-27] MEDS: MULTIVITAMINS/MINERALS THERAP 1 TAB PO (09:05)
[2018-02-27] MEDS: THIAMINE 100 MG TAB PO (09:05)
[2018-02-27] MEDS: CLOPIDOGREL 75 MG TAB PO (09:05)
[2018-02-27 09:22] LABS: ALBUMIN 2.7 GM/DL (3.2-5.2); ALBUMIN/GLOBULIN RATIO 0.79 (1.00-1.93); ALKALINE PHOSPHATASE 79 U/L (45-117); ALT/SGPT 21 U/L (12-78); ANION GAP 9 MEQ/L (8-16); AST/SGOT 17 U/L (7-37); BILIRUBIN,TOTAL 0.5 MG/DL (0.2-1.0); BLOOD UREA NITROGEN 5 MG/DL (7-18); CALCIUM LEVEL 8.1 MG/DL (8.8-10.2); CARBON DIOXIDE LEVEL 29 MEQ/L (21-32); CHLORIDE LEVEL 96 MEQ/L (98-107); CREATININE FOR GFR 0.54 MG/DL (0.55-1.30); GLOMERULAR FILTRATION RATE > 60.0 (>45); GLUCOSE, FASTING 178 MG/DL (70-100); POTASSIUM SERUM 3.7 MEQ/L (3.5-5.1); SODIUM LEVEL 134 MEQ/L (136-145); TOTAL PROTEIN 6.1 GM/DL (6.4-8.2)
== END 2018-02-27 13:00 | disposition home or self-care (01) | DRG 751 ==
LOC: M ED 11:17 → M ED INP 21:04 → M PSY 22:41
DX: F32.3 Major depressive disorder, single episode, severe with psychotic features (principal); I95.9 Hypotension, unspecified; E87.1 Hypo-osmolality and hyponatremia; J44.9 Chronic obstructive pulmonary disease, unspecified; F10.10 Alcohol abuse, uncomplicated; I10 Essential (primary) hypertension; I65.29 Occlusion and stenosis of unspecified carotid artery; R26.81 Unsteadiness on feet; E78.5 Hyperlipidemia, unspecified; G43.909 Migraine, unspecified, not intractable, without status migrainosus; M54.9 Dorsalgia, unspecified; F17.210 Nicotine dependence, cigarettes, uncomplicated; E87.6 Hypokalemia; Z79.82 Long term (current) use of aspirin; Z79.899 Other long term (current) drug therapy; Z90.711 Acquired absence of uterus with remaining cervical stump; Z85.118 Personal history of other malignant neoplasm of bronchus and lung; Z92.21 Personal history of antineoplastic chemotherapy; Z86.73 Personal history of transient ischemic attack (TIA), and cerebral infarction without residual deficits

== ENCOUNTER 2018-04-22 18:19 | Emergency (ER) | payer SELFPAY, OTHER ==
[2018-04-22 18:57] LABS: BASO # 0.1 10^3/uL (0.0-0.2); BASO % 0.5 % (0.0-1.0); EOS # 0.1 10^3/uL (0.0-0.50); EOS % 0.7 % (0.0-3.0); HEMATOCRIT 52.6 % (36.0-47.0); HEMOGLOBIN 17.7 g/dl (12.0-15.5); IMMATURE GRANULOCYTE % 0.3 % (0-3.0); LYMPH # 3.9 10^3/uL (1.5-4.5); LYMPH % 24.9 % (24.0-44.0); MEAN CORPUSCULAR HEMOGLOBIN 32.5 pg (27.0-33.0); MEAN CORPUSCULAR HGB CONC 33.7 g/dl (32.0-36.5); MEAN CORPUSCULAR VOLUME 96.5 fl (80.0-96.0); MONO # 1.1 10^3/uL (0.0-0.8); MONO % 6.7 % (0.0-5.0); NEUTROPHILS # 10.4 10^3/uL (1.8-7.7); NEUTROPHILS % 66.9 % (36.0-66.0); PLATELET COUNT, AUTOMATED 260 10^3/uL (150-450); RED BLOOD COUNT 5.45 10^6/uL (4.00-5.40); RED CELL DISTRIBUTION WIDTH 14.1 % (11.5-14.5); WHITE BLOOD COUNT 15.6 10^3/uL (4.0-10.0)
[2018-04-22 19:07] LABS: INR 0.92; PROTHROMBIN TIME 12.5 SECONDS (12.1-14.4)
[2018-04-22 19:36] LABS: ALBUMIN 3.3 GM/DL (3.2-5.2); ALBUMIN/GLOBULIN RATIO 0.85 (1.00-1.93); ALKALINE PHOSPHATASE 111 U/L (45-117); ALT/SGPT 17 U/L (12-78); ANION GAP 7 MEQ/L (8-16); AST/SGOT 19 U/L (7-37); BILIRUBIN,DIRECT 0.1 MG/DL (0.0-0.2); BILIRUBIN,TOTAL 0.5 MG/DL (0.2-1.0); BLOOD UREA NITROGEN 11 MG/DL (7-18); CALCIUM LEVEL 8.7 MG/DL (8.8-10.2); CARBON DIOXIDE LEVEL 31 MEQ/L (21-32); CHLORIDE LEVEL 98 MEQ/L (98-107); CPK CREATINE PHOSPHOKINASE 67 U/L (26-192); CREATININE FOR GFR 0.58 MG/DL (0.55-1.30); ETHYL ALCOHOL (ETHANOL) < 0.003 % (0.000-0.010); GLOMERULAR FILTRATION RATE > 60.0 (>45); GLUCOSE, FASTING 94 MG/DL (70-100); LIPASE 88 U/L (73-393); MAGNESIUM LEVEL 2.5 MG/DL (1.8-2.4); MB/CK RELATIVE INDEX 1.94 (< OR =4); POTASSIUM SERUM 3.9 MEQ/L (3.5-5.1); SODIUM LEVEL 136 MEQ/L (136-145); TOTAL PROTEIN 7.2 GM/DL (6.4-8.2); TROPONIN I < 0.02 NG/ML (< 0.10)
[2018-04-22] MEDS: NS 1,000 ML IV (19:52)
== END 2018-04-22 20:34 | disposition home or self-care (01) ==
LOC: M ED 18:19
DX: S01.81XA Laceration without foreign body of other part of head, initial encounter (principal); R55 Syncope and collapse; F17.210 Nicotine dependence, cigarettes, uncomplicated
CPT/HCPCS: 70450

== ENCOUNTER → 2018-04-22 | Outpatient (CLI) | payer SELFPAY, OTHER | LOC: M ADAMS 17:30 | DX: S05.12XA Contusion of eyeball and orbital tissues, left eye, initial encounter (principal); X58.XXXA Exposure to other specified factors, initial encounter; Y92.89 Other specified places as the place of occurrence of the external cause | CPT/HCPCS: 70200 ==

== ENCOUNTER 2018-07-07 17:14 | Inpatient (IN) | payer MEDICAID, SELFPAY ==
[~2018-07-07] VITALS: Ht 157.5 cm; Wt 44.8 kg
[~2018-07-07 17:14] MED LIST changes: +ANOR1AER INH; +ARIP2TAB PO; +ASPI1TAB PO; +ATOR1TAB21 PO; +ATOR80TA59; +ATOR80TA59 PO; +CELE10TA PO; +CELE20TA PO; +CITA10TA5 PO; +CITA20TA4 PO; +CLOP75TA2; +CLOP75TA2 PO; +FLUD0.1T PO; +FOLI1TAB11 PO; +FOLI1TAB86 PO; +GABA100C PO; +GABA300C2 PO; +HYDR-3363 PO; +LIPI80TA PO; +MECL-68 PO; +METF500T13 PO; +MULT1CHW26 PO; +NICO21PAT TD; +PATIENT COMMENT; +PROAAER10 INH; -PROHANCE 279.3MG/ML 15ML VIAL (A9576) As Ordered; +RISP0.5T21 PO; +RISP1TAB3 PO; +RISP2TAB32 PO; +SM A1TAB; +STIO1AER; +THIA100TA PO; +TRAZ100T2 PO; +TRAZ25TA PO; +TRAZO50TA PO; +VENTAER INH; +VITA100T2 PO; +VITMTA OR; +VITMTA PO
[2018-07-07] MEDS ORDERED: methylPREDNISolone INJ 125 MG/2 ML VIAL (J2930) IV ONE (17:45)
[2018-07-07] MEDS ORDERED: NS 1,000 ML IV ONE ×2 (17:45→18:45)
[2018-07-07 17:59] LABS: BASO # 0.1 10^3/uL (0.0-0.2); BASO % 0.6 % (0.0-1.0); EOS % 0.2 % (0.0-3.0); HEMATOCRIT 47.3 % (36.0-47.0); HEMOGLOBIN 15.6 g/dl (12.0-15.5); LYMPH # 2.6 10^3/uL (1.5-4.5); LYMPH % 20.2 % (24.0-44.0); MEAN CORPUSCULAR HEMOGLOBIN 31.3 pg (27.0-33.0); MEAN CORPUSCULAR VOLUME 94.8 fl (80.0-96.0); MONO # 1.1 10^3/uL (0.0-0.8); MONO % 8.4 % (0.0-5.0); NEUTROPHILS # 9.2 10^3/uL (1.8-7.7); PLATELET COUNT, AUTOMATED 212 10^3/uL (150-450); RED BLOOD COUNT 4.99 10^6/uL (4.00-5.40); WHITE BLOOD COUNT 13.1 10^3/uL (4.0-10.0)
[2018-07-07] MEDS: IPRATROPIUM 0.5MG/ALBUTEROL 2.5MG INH SOL UD 3ML (DUONEB)(J7620) NEB SCH ×3 (18:14→19:48)
[2018-07-07 18:17] LABS: ABG O2 SATURATION 97.8 % (95.0-99.0)
[2018-07-07 18:20] LABS: ABG BASE EXCESS 4.7 (-2.0-2.0); ABG HCO3 31.3 MEQ/L (22.0-26.0); ABG PARTIAL PRESSURE O2 94.9 mmHg (75.0-100.0); ABG STANDARD HCO3 28.7 MEQ/L (22.0-26.0); ABG TOTAL CO2 32.9 MEQ/L (23.0-31.0); ABG pH (ARTERIAL) 7.386 UNITS (7.350-7.450)
[2018-07-07 18:22] LABS: ABG PARTIAL PRESSURE CO2 53.4 mmHg (35.0-45.0)
[2018-07-07 18:29] LABS: INR 1.11; PROTHROMBIN TIME 14.4 SECONDS (12.1-14.4)
[2018-07-07 18:59] LABS: ACETAMINOPHEN LEVEL < 2.0 UG/ML (10.0-30.0); ALBUMIN 2.7 GM/DL (3.2-5.2); ALT/SGPT 13 U/L (12-78); BILIRUBIN,DIRECT 0.1 MG/DL (0.0-0.2); BILIRUBIN,TOTAL 0.3 MG/DL (0.2-1.0); BLOOD UREA NITROGEN 8 MG/DL (7-18); CALCIUM LEVEL 7.7 MG/DL (8.8-10.2); CARBON DIOXIDE LEVEL 35 MEQ/L (21-32); CHLORIDE LEVEL 94 MEQ/L (98-107); CPK CREATINE PHOSPHOKINASE 83 U/L (26-192); CREATININE FOR GFR 0.64 MG/DL (0.55-1.30); ETHYL ALCOHOL (ETHANOL) < 0.003 % (0.000-0.010); GLOMERULAR FILTRATION RATE > 60.0 (>45); GLUCOSE, FASTING 91 MG/DL (70-100); MB/CK RELATIVE INDEX 2.17 (< OR =4); POTASSIUM SERUM 3.4 MEQ/L (3.5-5.1); SALICYLATE LEVEL 4.8 MG/DL (5.0-30.0); SODIUM LEVEL 136 MEQ/L (136-145); TOTAL PROTEIN 6.5 GM/DL (6.4-8.2); TROPONIN I 0.02 NG/ML (< 0.10)
[2018-07-07 19:23] LABS: AMPHETAMINES LEVEL URINE NEGATIVE (NEGATIVE); BARBITURATES URINE NEGATIVE (NEGATIVE); BENZODIAZEPINES URINE NEGATIVE (NEGATIVE); CANNABINOIDS URINE NEGATIVE (NEGATIVE); COCAINE METABOLITE URINE NEGATIVE (NEGATIVE); METHADONE URINE NEGATIVE (NEGATIVE); OPIATES URINE NEGATIVE (NEGATIVE); PHENCYCLIDINE URINE NEGATIVE (NEGATIVE)
--- NOTE | 2018-07-07 19:23 | REP ---
Clinical: Shortness of breath. Comparison: 02/19/2018. Findings: [id number] in stable position with tip in the SVC. Mediastinum and cardiac silhouette are within normal limits. Lung garcia demonstrate diffuse chronic interstitial changes. Subtle superimposed left lower lobe atelectasis cannot be excluded. No focal consolidation, effusion, or pneumothorax. Skeletal structures demonstrate stable osteopenia and degenerative changes. Impression: Essentially chronic stable interstitial changes. Cannot exclude very subtle left lower lobe atelectasis. Electronically Signed by Reji Dupree MD 07/07/2018 06:56 P
[2018-07-07 20:23] LABS: INFLUENZA A AMPLIFICATION NEGATIVE (NEGATIVE); INFLUENZA B AMPLIFICATION NEGATIVE (NEGATIVE)
[2018-07-07] MEDS ORDERED: LevoFLOXacin IV 750 MG in APPROPRIATE DILUENT 1 EA IV ONE (20:30)
[2018-07-07] MEDS ORDERED: METF500T4 PO (20:52)
[2018-07-07] MEDS ORDERED: VENTAER INH (20:52)
[2018-07-07] MEDS ORDERED: CITA-229 PO (20:52)
[2018-07-07] MEDS ORDERED: FOLI1TAB11 PO (20:52)
[2018-07-07] MEDS ORDERED: THIA100TA PO (20:52)
[2018-07-07] MEDS ORDERED: FLUD0.1T PO (20:52)
[2018-07-07] MEDS ORDERED: ATOR80TA59 PO (20:52)
[2018-07-07] MEDS ORDERED: VITMTA PO (20:52)
[2018-07-07] MEDS ORDERED: GLUCAGON FOR INJ 1 MG VIAL (J1610) SC PRN (21:15)
[2018-07-07] MEDS ORDERED: GLUCOSE 4 GM CHEW TABLET PO PRN (21:15)
[2018-07-07] MEDS ORDERED: DEXTROSE 50% 50 ML SYRINGE IV PRN (21:15)
[2018-07-07] MEDS: NS 1,000 ML IV SCH (22:34)
--- NOTE | 2018-07-07 23:06 | HPEPDOC ---
[facility] Medical History & Physical Date of Admission Jul 07, 2018 Other Provider Admitting/dictating: Aleksey Negron M.D. Attending Physician: RODDY MONTES MD History and Physical CHIEF COMPLAINT: Progressive physical decline times couple of weeks. Nonproductive cough times couple of weeks. HISTORY OF PRESENT ILLNESS: Patient is a 62-year-old woman with medical history significant for schizophrenia, psychosis, hypertension, dyslipidemia, migraine headaches, history of TIAs, COPD not on home oxygen. Current tobacco use. She is status post chemotherapy for lung cancer, chronic back pain. Remote history of carotid vascular disease on aspirin and Plavix. Patient reports nonproductive cough for couple of weeks as well as associated progressive physical decline. She reports that she just feels tired every time. She denies any fever or chills. No chest pain, no palpitations again but gets occasional short of breath with coughing. No change in her bowel or urinary habits. She was evaluated in the emergency room, labs show an elevated white count, mild left shift and chest x-ray with suspicious finding in keeping with pneumonia. PAST MEDICAL HISTORY: Per HPI PAST SURGICAL HISTORY: 1. Partial hysterectomy. 2. Appendectomy. SOCIAL HISTORY: Smokes about a pack a day of cigarettes, denies alcohol use. Denies illicit drug use. FAMILY HISTORY: Father: Diagnosed with COPD Mother: Was said to have had a heart attack Siblings: 4 brothers and 4 sisters alive and well except 2 brothers who in a car accident Children: 2 children alive and well ALLERGIES: Please see below. REVIEW OF SYSTEMS: 12 point review of systems negative other than that described in the body of HPI. HOME MEDICATIONS: Please see below. PHYSICAL EXAMINATION: VITAL SIGNS: Temperature 98, pulse 90, respiratory rate , blood pressure 106/73, pulse oximetry 97 on 2.5L O2. GENERAL APPEARANCE: Elderly woman,appears ill looking, lying calmly in bed, not in any apparent distress. She is not pale, anicteric and afebrile HEENT: Atraumatic. Neck: Supple. LUNGS: Clear to auscultation bilaterally. CARDIOVASCULAR: S1 and 2 heard, no murmurs, rubs or gallops. ABDOMEN: Obese, soft, not tender, not distended. Bowel sounds normoactive. MUSCULOSKELETAL: Apparently within normal limits. EXTREMITIES: No pedal edema, 2+ bilateral pedal pulses noted. NEUROLOGICAL: Awake, alert, oriented 3. PSYCHIATRIC: Normal affect LABORATORY DATA: See below. IMAGING: Chest x-ray:Essentially chronic stable interstitial changes. Cannot exclude very subtle left lower lobe atelectasis. EKG: Normal sinus rhythm with short [place] segments but no acute ST or T-wave changes. MICROBIOLOGY: Please see below. ASSESSMENT: 62-year-old woman with above-mentioned comorbid history comes in with progressive physical decline associated with generalized weakness. Exam unremarkable. Chest x-ray suggestive of pneumonia. Her labs with elevated white count. DIAGNOSES: 1. Progressive physical decline/generalized weakness 2. Pneumonia 3. COPD exacerbation. . PLAN: 1. I will admit patient to the medical floor under care of Dr. Montes 2. Progressive physical decline: Patient to be seen by PT, OT tomorrow. 3. Pneumonia, which at this point may be complicating her physical well-being. We'll continue with Levaquin 750 mg IV every 24 hours 4. Patient has mild COPD exacerbation. She appears a lot more comfortable now. No wheeze on exam. I will continue DuoNeb nebulizations and O2 supplementation without steroids. 5. Will resume outpatient medications after reconciliation. 6. GI prophylaxis. Pantoprazole. 7. DVT prophylaxis subcutaneous heparin. 8. Extensive smoking cessation counseling, which lasted more than 10 minutes done. However, she declined use of nicotine patch with this admission. 9. Further management will be per patient's clinical course. Vital Signs Vital Signs Date Time Temp Pulse Resp B/P (MAP) Pulse Ox O2 Delivery O2 Flow Rate FiO2 07/07/18 20:06 89 Nasal Cannula 2.5 07/07/18 18:30 106/73 (84) 07/07/18 18:29 90 07/07/18 17:34 95.9 16 Laboratory Data Labs 24H Laboratory Tests 2 07/07/18 17:44: Immature Granulocyte % (Auto) 0.6, White Blood Count 13.1H, Red Blood Count 4.99, Hemoglobin 15.6H, Hematocrit 47.3H, Mean Corpuscular Volume 94.8, Mean Cor puscular Hemoglobin 31.3, Mean Corpuscular Hemoglobin Concent 33.0, Red Cell Distribution Width 14.6H, Platelet Count 212, Neutrophils (%) (Auto) 70.0H, Lymphocytes (%) (Auto) 20.2L, Monocytes (%) (Auto) 8.4H, Eosinophils (%) (Auto) 0.2, Basophils (%) (Auto) 0.6, Neutrophils # (Auto) 9.2H, Lymphocytes # (Auto) 2.6, Monocytes # (Auto) 1.1H, Eosinophils # (Auto) 0.0, Basophils # (Auto) 0.1, Nucleated Red Blood Cells % (auto) 0.0, Prothrombin Time 14.4, Prothromb Time International Ratio 1.11, Anion Gap 7L, Glomerular Filtration Rate > 60.0, Lactic Acid Level 2.4*H, Calcium Level 7.7L, Aspartate Amino Transf (AST/SGOT) 12, Alanine Aminotransferase (ALT/SGPT) 13, Alkaline Phosphatase 96, Total B ilirubin 0.3, Direct Bilirubin 0.1, Total Creatine Kinase 83, Creatine Kinase MB 2.0, Creatine Kinase MB Relative Index 2.17, Troponin I 0.02, Total Protein 6.5, Albumin 2.7L, Albumin/Globulin Ratio 0.71L, Salicylates Level 4.8L, Acetaminophen Level < 2.0L, Ethyl Alcohol Level < 0.003 07/07/18 18:05: Blood Gas Bicarbonate Standard 28.7H, Arterial Blood pH 7.386, Arterial Blood Partial Pressure CO2 53.4H, Arterial Blood Partial Pressure O2 94.9, Arterial Blood Total CO2 32.9H, Arterial Blood HCO3 31.3H, Arterial Blood Base Excess 4.7H, Arterial Blood Oxygen Saturation 97.8 07/07/18 18:51: Urine Color NAKIA, Urine Appearance CLEAR, Urine pH 6.0, Urine Specific [place] 1.017, Urine Protein 1+H, Urine Glucose (UA) NEGATIVE, Urine Ketones NEGATIVE, Urine Blood NEGATIVE, Urine Nitrite NEGATIVE, Urine Bilirubin NEGATIVE, Urine Urobilinogen 4.0H, Urine Leukocyte Esterase NEGATIVE, Urine WBC (Auto) 1, Urine RBC (Auto) 1, Urine Hyaline Casts (Auto) 1, Urine Bacteria (Auto) NEGATIVE, Urine Squamous Epithelial Cells 0, Urine Mucus (Auto) SMALL, Urine Sperm (Auto) , Urine Amphetamines Screen NEGATIVE, Urine Benzodiazepines Screen NEGATIVE, Urine Opiates Screen NEGATIVE, Urine Methadone Screen NEGATIVE, Urine Barbiturates Screen NEGATIVE, Urine Phencyclidine Screen NEGATIVE, Urine Cocaine Metabolite Screen NEGATIVE, Urine Cannabinoids Screen NEGATIVE 07/07/18 19:46: Influenza Type A (RT-PCR) NEGATIVE, Influenza Type B (RT-PCR) NEGATIVE CBC/BMP Laboratory Tests 07/07/18 17:44 Red Blood Count 4.99, Mean Corpuscular Volume 94.8, Mean Corpuscular Hemoglobin 31.3, Mean Corpuscular Hemoglobin Concent 33.0, Red Cell Distribution Width 14.6 H, Neutrophils (%) (Auto) 70.0 H, Lymphocytes (%) (Auto) 20.2 L, Monocytes (%) (Auto) 8.4 H, Eosinophils (%) (Auto) 0.2, Basophils (%) (Auto) 0.6, Neutrophils # (Auto) 9.2 H, Lymphocytes # (Auto) 2.6, Monocytes # (Auto) 1.1 H, Eosinophils # (Auto) 0.0, Basophils # (Auto) 0.1 Microbiology Microbiology 07/07/18 Blood Culture, Received Pending 07/07/18 Blood Culture, Received Pending Home Medications Scheduled Aspirin (Aspirin 81) 81 Mg Tab, 81 MG PO DAILY Atorvastatin Calcium (Atorvastatin Calcium) 80 Mg Tab, 80 MG PO DAILY Citalopram Hydrobromide (Citalopram) 10 Mg Tab, 10 MG PO DAILY Clopidogrel Bisulfate (Clopidogrel) 75 Mg Tab, 75 MG PO DAILY Fludrocortisone Acetate (Fludrocortisone Acetate) 0.1 Mg Tab, 0.1 MG PO DAILY Folic Acid (Folic Acid) 1 Mg Tab, 1 MG PO DAILY Metformin Hydrochloride (Metformin HCl ER) 500 Mg Tab, 500 MG PO QPM TAKES WITH EVENING MEAL. Multivitamins *[facility] STOCKED* (Thera M Plus *[facility] STOCKED*) 1 Tab Tab, 1 TAB PO DAILY Thiamine Hcl (Thiamine Hcl) 100 Mg Tab, 100 MG PO DAILY Scheduled PRN Albuterol Sulfate (Ventolin Hfa) 108 Mcg/Act Aer, 2 PUFF INH Q4H PRN for SHORTNESS OF BREATH Allergies Coded Allergies: No Known Allergies (Unverified , 07/07/18) ALEKSEY NEGRON MD Jul 07, 2018 21:08
[2018-07-07 23:35] VITALS: BP 98/68
[2018-07-08] MEDS ORDERED: LevoFLOXacin IV 750 MG in APPROPRIATE DILUENT 1 EA IV SCH ×2
[2018-07-08] MEDS ORDERED: HumaLOG INSULIN (NovoLOG) PER UNIT SC SCH
[2018-07-08 06:00] VITALS: BP 130/85
[2018-07-08] MEDS: IPRATROPIUM 0.5MG/ALBUTEROL 2.5MG INH SOL UD 3ML (DUONEB)(J7620) NEB SCH ×4 (06:32→20:00)
[2018-07-08 07:17] LABS: BASO % 0.3 % (0.0-1.0); HEMATOCRIT 44.6 % (36.0-47.0); HEMOGLOBIN 14.5 g/dl (12.0-15.5); LYMPH % 12.3 % (24.0-44.0); MEAN CORPUSCULAR HEMOGLOBIN 30.1 pg (27.0-33.0); MEAN CORPUSCULAR HGB CONC 32.5 g/dl (32.0-36.5); MEAN CORPUSCULAR VOLUME 92.7 fl (80.0-96.0); MONO # 0.4 10^3/uL (0.0-0.8); MONO % 4.5 % (0.0-5.0); NEUTROPHILS # 6.6 10^3/uL (1.8-7.7); NEUTROPHILS % 82.3 % (36.0-66.0); PLATELET COUNT, AUTOMATED 207 10^3/uL (150-450); RED BLOOD COUNT 4.81 10^6/uL (4.00-5.40)
[2018-07-08 07:44] LABS: BLOOD UREA NITROGEN 8 MG/DL (7-18); CALCIUM LEVEL 7.8 MG/DL (8.8-10.2); CARBON DIOXIDE LEVEL 31 MEQ/L (21-32); CHLORIDE LEVEL 100 MEQ/L (98-107); GLOMERULAR FILTRATION RATE > 60.0 (>45); GLUCOSE, FASTING 133 MG/DL (70-100); POTASSIUM SERUM 3.9 MEQ/L (3.5-5.1); SODIUM LEVEL 135 MEQ/L (136-145)
[2018-07-08] MEDS: HumaLOG INSULIN (NovoLOG) PER UNIT SC SCH ×4 (08:11→21:00)
[2018-07-08] MEDS: CitaloPRAM (CeleXA) 10 MG TABLET PO SCH (08:12)
[2018-07-08] MEDS: ATORVASTATIN 20 MG TAB PO SCH (08:12)
[2018-07-08] MEDS: FLUDROCORTISONE ACETATE 0.1 MG TAB PO SCH (08:12)
[2018-07-08] MEDS: CLOPIDOGREL 75 MG TAB PO SCH (08:12)
[2018-07-08] MEDS: FOLIC ACID 1 MG TAB PO SCH (08:12)
[2018-07-08] MEDS: ASPIRIN 81 MG ENTERIC TAB PO SCH (08:12)
[2018-07-08] MEDS: PANTOPRAZOLE 40MG TAB (PROTONIX) PO SCH (08:13)
[2018-07-08] MEDS: THIAMINE 100 MG TAB PO SCH (08:13)
[2018-07-08] MEDS: BUDESONIDE 180MCG INHALER (PULMICORT FLEXHALER) INH SCH ×2 (08:44→20:15)
[2018-07-08] MEDS: predniSONE 20 MG TAB PO SCH (10:12)
[2018-07-08] MEDS: NS 1,000 ML IV SCH (11:26)
--- NOTE | 2018-07-08 13:03 | IPNPDOC ---
Date Seen The patient was seen on 07/08/18. Progress Note SUBJECTIVE: Patient is a 62-year-old female with weakness. Patient is evaluated bedside this morning. Nursing personnel are present and evaluation. Patient is minimally conversant and does not appear to interact throughout evaluation. Patient states she feels weak and that was her reason for admission to the hospital. She states she is coughing, but not expectorating any phlegm or sputum. Does not acknowledge she has chest pain, shortness of breath, fevers, night sweats, chills. OBJECTIVE PHYSICAL EXAMINATION: VITAL SIGNS: Please see below. GENERAL: Elderly appearing female, minimally conversant, not interactive throughout this evaluation, does not appear to be in distress. HEENT: Atraumatic, normocephalic, PERRL, EOMI, oral mucosa appears pink and moist, nasal septum appears midline, nares are patent. CARDIOVASCULAR: Regular rate and rhythm, normal S1 and S2, no murmur, rub, click. RESPIRATORY: Rhonchorous throughout, symmetric airway entry, no focal consolid ations appreciated, no wheeze, crackles. ABDOMINAL: Round, soft, nontender, nondistended. EXTREMITIES: No clubbing, no cyanosis, no peripheral edema. NEUROLOGICAL: No focal neurological deficits. PSYCHOLOGICAL: Minimally interactive, minimally conversant. LABORATORY DATA, IMAGING STUDIES, MICROBIOLOGY: Please see below. Chest x-ray, 1 view on 07/07/2018 - chronic stable interstitial changes, cannot exclude very subtle left lower lobe atelectasis. DVT prophylaxis ordered?: Lovenox 40 mg subcutaneous daily; TEDs, sequentials, knee-high compression. ASSESSMENT AND PLAN: This is a 62-year-old female with weakness and nonproductive cough most likely secondary to chronic obstructive pulmonary disease exacerbation. PROBLEMS: 1. Chronic obstructive pulmonary disease exacerbation: Continue Levaquin. Influenza screen was negative. Respiratory panel is pending. Leukocytosis has resolved. Lactic acidosis has improved. Status post 2 L fluid bolus. Status post intravenous fluid resuscitation with normal saline 75 mLs per hour. Fluids have been discontinued. Started patient on prednisone 40 mg by mouth daily for 5 days. Continue with DuoNeb's. Have added budesonide, incentive spirometer, and Acapella. Have ordered sputum Gram stain and culture. Blood cultures are pending. 2. Diabetes mellitus: Metformin on hold. Continue with sliding scale insulin before meals and at bedtime, hypoglycemic protocol, fingersticks before meals and at bedtime, and consistent carbohydrate diet. 3. Coronary artery disease: Continue aspirin, Plavix, Lipitor. 4. Depression: Continue Celexa. 5. History of orthostatic hypertension: Continue Florinef. 6. Physical deconditioning: Have ordered physical therapy. DISPOSITION: Improvement in respiratory status. Evaluation by physical therapy. VS, I&O, 24H, Fishbone Vital Signs/I&O Vital Signs Date Time Temp Pulse Resp B/P (MAP) Pulse Ox O2 Delivery O2 Flow Rate FiO2 07/08/18 08:14 2.0 07/08/18 06:00 97.2 93 20 130/85 (100) 95 Nasal Cannula I&O- Last 24 Hours up to 6 AM 07/08/18 06:00 Intake Total 1000 ml Output Total 100 ml Balance 900 ml Laboratory Data 24H LABS Laboratory Tests 2 07/07/18 17:44: Immature Granulocyte % (Auto) 0.6, White Blood Count 13.1H, Red Blood Count 4.99, Hemoglobin 15.6H, Hematocrit 47.3H, Mean Corpuscular Volume 94.8, Mean Corpuscular Hemoglobin 31.3, Mean Corpuscular Hemoglobin Concent 33.0, Red Cell Distribution Width 14.6H, Platelet Count 212, Neutrophils (%) (Auto) 70.0H, Lymphocytes (%) (Auto) 20.2L, Monocytes (%) (Auto) 8.4H, Eosinophils (%) (Auto) 0.2, Basophils (%) (Auto) 0.6, Neutrophils # (Auto) 9.2H, Lymphocytes # (Auto) 2.6, Monocytes # (Auto) 1.1H, Eosinophils # (Auto) 0.0, Basophils # (Auto) 0.1, Nucleated Red Blood Cells % (auto) 0.0, Prothrombin Time 14.4, Prothromb Time International Ratio 1.11, Anion Gap 7L, Glomerular Filtration Rate > 60.0, Lactic Acid Level 2.4*H, Calcium Level 7.7L, Aspartate Amino Transf (AST/SGOT) 12, Alanine Aminotransferase (ALT/SGPT) 13, Alkaline Phosphatase 96, Total Bilirubin 0.3, Direct Bilirubin 0.1, Total Creatine Kinase 83, Creatine Kinase MB 2.0, Creatine Kinase MB Relative Index 2.17, Troponin I 0.02, Total Protein 6.5, Albumin 2.7L, Albumin/Globulin Ratio 0.71L, Salicylates Level 4.8L, Acetaminophen Level < 2.0L, Ethyl Alcohol Level < 0.003 07/07/18 18:05: Blood Gas Bicarbonate Standard 28.7H, Arterial Blood pH 7.386, Arterial Blood Partial Pressure CO2 53.4H, Arterial Blood Partial Pressure O2 94.9, Arterial Blood Total CO2 32.9H, Arterial Blood HCO3 31.3H, Arterial Blood Base Excess 4.7H, Arterial Blood Oxygen Saturation 97.8 07/07/18 18:51: Urine Color NAKIA, Urine Appearance CLEAR, Urine pH 6.0, Urine Specific [place] 1.017, Urine Protein 1+H, Urine Glucose (UA) NEGATIVE, Urine Ketones NEGATIVE, Urine Blood NEGATIVE, Urine Nitrite NEGATIVE, Urine Bilirubin NEGATIVE, Urine Urobilinogen 4.0H, Urine Leukocyte Esterase NEGATIVE, Urine WBC (Auto) 1, Urine RBC (Auto) 1, Urine Hyaline Casts (Auto) 1, Urine Bacteria (Auto) NEGATIVE, Urine Squamous Epithelial Cells 0, Urine Mucus (Auto) SMALL, Urine Sperm (Auto) , Urine Amphetamines Screen NEGATIVE, Urine Benzodiazepines Screen NEGATIVE, Urine Opiates Screen NEGATIVE, Urine Methadone Screen NEGATIVE, Urine Barbiturates Screen NEGATIVE, Urine Phencyclidine Screen NEGATIVE, Urine Cocaine Metabolite Screen NEGATIVE, Urine Cannabinoids Screen NEGATIVE 07/07/18 19:46: Influenza Type A (RT-PCR) NEGATIVE, Influenza Type B (RT-PCR) NEGATIVE 07/07/18 22:04: Lactic Acid Followup at 4 Hours 2.1*H 07/08/18 00:32: Bedside Glucose (Misc Panel) 276H 07/08/18 06:56: Immature Granulocyte % (Auto) 0.6, White Blood Count 8.0, Red Blood Count 4.81, Hemoglobin 14.5, Hematocrit 44.6, Mean Corpuscular Volume 92.7, Mean Corpuscular Hemoglobin 30.1, Mean Corpuscular Hemoglobin Concent 32.5, Red Cell Distribution Width 14.4, Platelet Count 207, Neutrophils (%) (Auto) 82.3H, Lymphocytes (%) (Auto) 12.3L, Monocytes (%) (Auto) 4.5, Eosinophils (%) (Auto) 0.0, Basophils (%) (Auto) 0.3, Neutrophils # (Auto) 6.6, Lymphocytes # (Auto) 1.0L, Monocytes # (Auto) 0.4, Eosinophils # (Auto) 0.0, Basophils # (Auto) 0.0, Nucleated Red Blood Cells % (auto) 0.0, Anion Gap 4L, Glomerular Filtration Rate > 60.0, Blood Urea Nitrogen 8, Creatinine 0.40L, Sodium Level 135L, Potassium Level 3.9, Chloride Level 100, Carbon Dioxide Level 31, Calcium Level 7.8L 07/08/18 11:50: Bedside Glucose (Misc Panel) 175H CBC/BMP Laboratory Tests 07/07/18 17:44 Red Blood Count 4.99, Mean Corpuscular Volume 94.8, Mean Corpuscular Hemoglobin 31.3, Mean Corpuscular Hemoglobin Concent 33.0, Red Cell Distribution Width 14.6 H, Neutrophils (%) (Auto) 70.0 H, Lymphocytes (%) (Auto) 20.2 L, Monocytes (%) (Auto) 8.4 H, Eosinophils (%) (Auto) 0.2, Basophils (%) (Auto) 0.6, Neutrophils # (Auto) 9.2 H, Lymphocytes # (Auto) 2.6, Monocytes # (Auto) 1.1 H, Eosinophils # (Auto) 0.0, Basophils # (Auto) 0.1 07/08/18 06:56 Red Blood Count 4.81, Mean Corpuscular Volume 92.7, Mean Corpuscular Hemoglobin 30.1, Mean Corpuscular Hemoglobin Concent 32.5, Red Cell Distribution Width 14.4, Neutrophils (%) (Auto) 82.3 H, Lymphocytes (%) (Auto) 12.3 L, Monocytes (%) (Auto) 4.5, Eosinophils (%) (Auto) 0.0, Basophils (%) (Auto) 0.3, Neutrophils # (Auto) 6.6, Lymphocytes # (Auto) 1.0 L, Monocytes # (Auto) 0.4, Eosinophils # (Auto) 0.0, Basophils # (Auto) 0.0, Calcium Level 7.8 L Microbiology Microbiology 07/07/18 Blood Culture, Received Pending 07/07/18 Blood Culture, Received Pending EMIL LAGUERRE DO Jul 08, 2018 12:43
[2018-07-08 14:00] VITALS: BP 86/63
[2018-07-08] MEDS: ENOXAPARIN 30 MG/0.3 ML SYR (J1650) SC SCH (15:46)
[2018-07-08] MEDS: LevoFLOXacin IV 750 MG in APPROPRIATE DILUENT 1 EA IV SCH (22:04)
[2018-07-09 06:00] VITALS: BP 127/81
[2018-07-09 06:02] LABS: BASO % 0.3 % (0.0-1.0); EOS % 0.1 % (0.0-3.0); HEMATOCRIT 45.4 % (36.0-47.0); HEMOGLOBIN 14.1 g/dl (12.0-15.5); LYMPH # 1.8 10^3/uL (1.5-4.5); LYMPH % 12.4 % (24.0-44.0); MEAN CORPUSCULAR HEMOGLOBIN 30.2 pg (27.0-33.0); MEAN CORPUSCULAR HGB CONC 31.1 g/dl (32.0-36.5); MEAN CORPUSCULAR VOLUME 97.2 fl (80.0-96.0); MONO # 1.2 10^3/uL (0.0-0.8); MONO % 8.7 % (0.0-5.0); NEUTROPHILS % 77.8 % (36.0-66.0); PLATELET COUNT, AUTOMATED 195 10^3/uL (150-450); RED BLOOD COUNT 4.67 10^6/uL (4.00-5.40); WHITE BLOOD COUNT 14.2 10^3/uL (4.0-10.0)
[2018-07-09 06:25] LABS: BLOOD UREA NITROGEN 10 MG/DL (7-18); CALCIUM LEVEL 7.7 MG/DL (8.8-10.2); CARBON DIOXIDE LEVEL 36 MEQ/L (21-32); CHLORIDE LEVEL 97 MEQ/L (98-107); CREATININE FOR GFR 0.46 MG/DL (0.55-1.30); GLOMERULAR FILTRATION RATE > 60.0 (>45); GLUCOSE, FASTING 111 MG/DL (70-100); POTASSIUM SERUM 4.1 MEQ/L (3.5-5.1); SODIUM LEVEL 137 MEQ/L (136-145)
[2018-07-09] MEDS: HumaLOG INSULIN (NovoLOG) PER UNIT SC SCH ×4 (08:10→20:49)
[2018-07-09] MEDS: ENOXAPARIN 30 MG/0.3 ML SYR (J1650) SC SCH (08:10)
[2018-07-09] MEDS: FLUDROCORTISONE ACETATE 0.1 MG TAB PO SCH (08:11)
[2018-07-09] MEDS: ASPIRIN 81 MG ENTERIC TAB PO SCH (08:11)
[2018-07-09] MEDS: PANTOPRAZOLE 40MG TAB (PROTONIX) PO SCH (08:11)
[2018-07-09] MEDS: FOLIC ACID 1 MG TAB PO SCH (08:11)
[2018-07-09] MEDS: ATORVASTATIN 20 MG TAB PO SCH (08:11)
[2018-07-09] MEDS: THIAMINE 100 MG TAB PO SCH (08:11)
[2018-07-09] MEDS: CLOPIDOGREL 75 MG TAB PO SCH (08:11)
[2018-07-09] MEDS: CitaloPRAM (CeleXA) 10 MG TABLET PO SCH (08:11)
[2018-07-09] MEDS: predniSONE 20 MG TAB PO SCH (08:11)
[2018-07-09] MEDS: BUDESONIDE 180MCG INHALER (PULMICORT FLEXHALER) INH SCH ×2 (08:29→19:47)
[2018-07-09] MEDS: IPRATROPIUM 0.5MG/ALBUTEROL 2.5MG INH SOL UD 3ML (DUONEB)(J7620) NEB SCH ×3 (08:29→19:46)
--- NOTE | 2018-07-09 08:33 | IPNPDOC ---
Text Note Date of Service The patient was seen on 07/09/18. NOTE SUBJECTIVE: Patient seen and examined at bedside. No new medical complaints. Endorses cough, and lethargy. No acute overnight events reported. OBJECTIVE: PHYSICAL EXAMINATION: VITAL SIGNS: Please see below. GENERAL: NAD, lying comfortably in bed, disheveled HEENT: NC/AT CARDIOVASCULAR: +S1S2, RRR RESPIRATORY: coarse breath sounds throughout ABDOMINAL: soft, NT, ND, +BS EXTREMITIES: No edema NEUROLOGICAL: No focal neurological deficits. ASSESSMENT AND PLAN: This is a 62-year-old female with weakness and nonproductive cough most likely secondary to chronic obstructive pulmonary disease exacerbation. #Chronic obstructive pulmonary disease exacerbation - Continue Levaquin - Influenza screen/respiratory panel was negative - mild leukocytosis has resolved - continue prednisone 40 mg by mouth daily for 5 days - Continue with DuoNeb's, budesonide, IS, acapella - SCx, BCx pending # Diabetes mellitus - home Metformin on hold - continue ISS, hypoglycemic protocol, fingersticks before meals and at bedtime, and consistent carbohydrate diet. 3. Coronary artery disease: Continue aspirin, Plavix, Lipitor. 4. Depression: Continue Celexa. 5. History of orthostatic hypertension: Continue Florinef. 6. Physical deconditioning: Continue PT. DISPOSITION: Improvement in respiratory status, PT VS,Lisa, I+O VS, Lisa, I+O Laboratory Tests 07/09/18 05:29 Red Blood Count 4.67, Mean Corpuscular Volume 97.2 H, Mean Corpuscular Hemoglobin 30.2, Mean Corpuscular Hemoglobin Concent 31.1 L, Red Cell Distribution Width 14.6 H, Neutrophils (%) (Auto) 77.8 H, Lymphocytes (%) (Auto) 12.4 L, Monocytes (%) (Auto) 8.7 H, Eosinophils (%) (Auto) 0.1, Basophils (%) (Auto) 0.3, Neutrophils # (Auto) 11.0 H, Lymphocytes # (Auto) 1.8, Monocytes # (Auto) 1.2 H, Eosinophils # (Auto) 0.0, Basophils # (Auto) 0.0, Calcium Level 7.7 L Vital Signs Date Time Temp Pulse Resp B/P (MAP) Pulse Ox O2 Delivery O2 Flow Rate FiO2 07/09/18 06:38 3.0 07/09/18 06:00 98.1 100 22 127/81 (96) 94 Nasal Cannula I&O- Last 24 Hours up to 6 AM 07/09/18 06:00 Intake Total 1275 ml Output Total 0 ml Balance 1275 ml RODDY FINLEY MD Jul 09, 2018 08:33
--- NOTE | 2018-07-09 09:05 | ECGEPIP ---
Stationary ECG Study [facility] - ED Test Date: 2018-07-07 Pat Name: DOMINIK COLVIN Department: Room: - Gender: F Head Swamper: : 1955 Requested By: Mukesh Li Order Number: [id number] Reading MD: Mckayla Curtis Measurements Intervals [place] Rate: 90 P: 80 OH: 113 QRS: 65 QRSD: 65 T: 66 QT: 349 QTc: 429 Interpretive Statements SINUS RHYTHM WITH SHORT OH INTERVAL RIGHT ATRIAL ENLARGEMENT POSSIBLE LEFT ATRIAL ENLARGEMENT DECREASED RATE 04/22/18 Electronically Signed On 07-09-2018 9:05:05 EST by Mckayla Curtis
[2018-07-09 14:00] VITALS: BP 70/58
[2018-07-09 14:15] VITALS: BP 120/78
[2018-07-09 20:00] VITALS: BP 108/63
[2018-07-09] MEDS: LevoFLOXacin IV 750 MG in APPROPRIATE DILUENT 1 EA IV SCH (22:33)
[2018-07-10] MEDS: IPRATROPIUM 0.5MG/ALBUTEROL 2.5MG INH SOL UD 3ML (DUONEB)(J7620) NEB SCH ×4 (00:49→20:00)
[2018-07-10 06:00] VITALS: BP 144/68
[2018-07-10 06:24] LABS: BASO # 0.1 10^3/uL (0.0-0.2); BASO % 0.3 % (0.0-1.0); EOS % 0.2 % (0.0-3.0); HEMATOCRIT 44.1 % (36.0-47.0); HEMOGLOBIN 14.6 g/dl (12.0-15.5); LYMPH # 3.2 10^3/uL (1.5-4.5); LYMPH % 17.2 % (24.0-44.0); MEAN CORPUSCULAR HEMOGLOBIN 30.7 pg (27.0-33.0); MEAN CORPUSCULAR HGB CONC 33.1 g/dl (32.0-36.5); MEAN CORPUSCULAR VOLUME 92.6 fl (80.0-96.0); MONO # 1.2 10^3/uL (0.0-0.8); MONO % 6.7 % (0.0-5.0); NEUTROPHILS # 13.7 10^3/uL (1.8-7.7); NEUTROPHILS % 74.7 % (36.0-66.0); PLATELET COUNT, AUTOMATED 193 10^3/uL (150-450); RED BLOOD COUNT 4.76 10^6/uL (4.00-5.40); WHITE BLOOD COUNT 18.4 10^3/uL (4.0-10.0)
[2018-07-10 06:45] LABS: BLOOD UREA NITROGEN 11 MG/DL (7-18); CALCIUM LEVEL 8.4 MG/DL (8.8-10.2); CARBON DIOXIDE LEVEL 36 MEQ/L (21-32); CHLORIDE LEVEL 92 MEQ/L (98-107); CREATININE FOR GFR 0.53 MG/DL (0.55-1.30); GLOMERULAR FILTRATION RATE > 60.0 (>45); GLUCOSE, FASTING 84 MG/DL (70-100); POTASSIUM SERUM 3.6 MEQ/L (3.5-5.1); SODIUM LEVEL 134 MEQ/L (136-145)
[2018-07-10] MEDS: HumaLOG INSULIN (NovoLOG) PER UNIT SC SCH ×4 (07:30→21:00)
[2018-07-10 08:20] LABS: ALBUMIN 2.5 GM/DL (3.2-5.2)
[2018-07-10] MEDS: BUDESONIDE 180MCG INHALER (PULMICORT FLEXHALER) INH SCH ×3 (08:46→20:30)
[2018-07-10] MEDS: ATORVASTATIN 20 MG TAB PO SCH (09:18)
[2018-07-10] MEDS: predniSONE 20 MG TAB PO SCH (09:18)
[2018-07-10] MEDS: PANTOPRAZOLE 40MG TAB (PROTONIX) PO SCH (09:18)
[2018-07-10] MEDS: CLOPIDOGREL 75 MG TAB PO SCH (09:18)
[2018-07-10] MEDS: ENOXAPARIN 30 MG/0.3 ML SYR (J1650) SC SCH (09:18)
[2018-07-10] MEDS: THIAMINE 100 MG TAB PO SCH (09:18)
[2018-07-10] MEDS: CitaloPRAM (CeleXA) 10 MG TABLET PO SCH (09:19)
[2018-07-10] MEDS: FOLIC ACID 1 MG TAB PO SCH (09:19)
[2018-07-10] MEDS: FLUDROCORTISONE ACETATE 0.1 MG TAB PO SCH (09:19)
[2018-07-10] MEDS: ASPIRIN 81 MG ENTERIC TAB PO SCH (09:19)
[2018-07-10 14:00] VITALS: BP 89/57
[2018-07-10] MEDS ORDERED: IPRATROPIUM 0.5MG/ALBUTEROL 2.5MG INH SOL UD 3ML (DUONEB)(J7620) NEB PRN (14:00)
[2018-07-10 14:15] VITALS: BP 93/62
--- NOTE | 2018-07-10 15:28 | IPNPDOC ---
Date Seen The patient was seen on 07/10/18. Progress Note SUBJECTIVE: Patient is a 62-year-old female with weakness. Patient is evaluated at bedside this morning. Patient states that she is coughing, but that it is nonproductive. She denies fevers, night sweats, chills, chest pain, shortness of breath. She is not oxygen dependent at home. She is currently on 4 L by nasal cannula with desaturations. OBJECTIVE PHYSICAL EXAMINATION: VITAL SIGNS: Please see below. GENERAL: Elderly appearing female, minimally conversant and intera ctive, but cooperative, does not appear to be in distress. HEENT: Atraumatic, normocephalic, PERRL, EOMI, oral mucosa appears pink and moist, nasal septum appears midline, nares are patent, nasal cannula in place. CARDIOVASCULAR: Regular rate and rhythm, normal S1 and S2, no murmur, rub, click. RESPIRATORY: Improving rhonchi throughout, symmetric airway entry, no focal consolidations appreciated, no wheeze, crackles. ABDOMINAL: Round, soft, nontender, nondistended. EXTREMITIES: No clubbing, no cyanosis, no peripheral edema. NEUROLOGICAL: No focal neurological deficits. PSYCHOLOGICAL: Minimally interactive, minimally conversant, but cooperative. LABORATORY DATA, IMAGING STUDIES, MICROBIOLOGY: Please see below. Chest x-ray, 1 view on 07/07/2018 - chronic stable interstitial changes, cannot exclude very subtle left lower lobe atelectasis. DVT prophylaxis ordered?: Lovenox 40 mg subcutaneous daily; TEDs, sequentials, knee-high compression. ASSESSMENT AND PLAN: This is a 62-year-old female with weakness and nonproductive cough most likely secondary to chronic obstructive pulmonary disease exacerbation. PROBLEMS: 1. Chronic obstructive pulmonary disease exacerbation: Continue Levaquin. Influenza screen was negative. Respiratory panel is negative. Leukocytosis is elevated, likely secondary to steroids. Patient is afebrile without hypotension or tachycardia. Lactic acidosis has improved. Status post 2 L fluid bolus. Status post intravenous fluid resuscitation with normal saline 75 mLs per hour. Fluids have been discontinued. Continue oral prednisone. Continue with DuoNeb's, budesonide, incentive spirometer, and Acapella. Have ordered sputum Gram stain and culture. Blood cultures are negative after 48 hours of growth. 2. Acute respiratory distress: Does not wear oxygen at home. He is currently requiring 4 L by nasal cannula and saturating at 94%. Will obtain an ABG. Will obtain a chest x-ray. Continue his DuoNeb's, budesonide, Acapella, and incentive spirometer. 3. Diabetes mellitus: Metformin on hold. Continue with sliding scale insulin before meals and at bedtime, hypoglycemic protocol, fingersticks before meals and at bedtime, and consistent carbohydrate diet. 4. Coronary artery disease: Continue aspirin, Plavix, Lipitor. 5. Depression: Continue Celexa. 6. History of orthostatic hypertension: Continue Florinef. 7. Physical deconditioning: Continue physical therapy. DISPOSITION: Improvement in respiratory status. Continue physical therapy. VS, I&O, 24H, Fishbone Vital Signs/I&O Vital Signs Date Time Temp Pulse Resp B/P (MAP) Pulse Ox O2 Delivery O2 Flow Rate FiO2 07/10/18 09:20 4.0 07/10/18 06:00 97.9 87 20 144/68 (93) 94 Nasal Cannula I&O- Last 24 Hours up to 6 AM 07/10/18 06:00 Intake Total 1650 ml Output Total 2303 ml Balance -653 ml Laboratory Data 24H LABS Laboratory Tests 2 07/09/18 16:24: Bedside Glucose (Misc Panel) 244H 07/09/18 20:05: Bedside Glucose (Misc Panel) 231H 07/10/18 06:03: Immature Granulocyte % (Auto) 0.9, White Blood Count 18.4H, Red Blood Count 4.76, Hemoglobin 14.6, Hematocrit 44.1, Mean Corpuscular Volume 92.6, Mean Corpuscular Hemoglobin 30.7, Mean Corpuscular Hemoglobin Concent 33.1, Red Cell Distribution Width 14.2, Platelet Count 193, Neutrophils (%) (Auto) 74.7H, Lymphocytes (%) (Auto) 17.2L, Monocytes (%) (Auto) 6.7H, Eosinophils (%) (Auto) 0.2, Basophils (%) (Auto) 0.3, Neutrophils # (Auto) 13.7H, Lymphocytes # (Auto) 3.2, Monocytes # (Auto) 1.2H, Eosinophils # (Auto) 0.0, Basophils # (Auto) 0.1, Nucleated Red Blood Cells % (auto) 0.0, Anion Gap 6L, Glomerular Filtration Rate > 60.0, Blood Urea Nitrogen 11, Creatinine 0.53L, Sodium Level 134L, Potassium Level 3.6, Chloride Level 92L, Carbon Dioxide Level 36H, Calcium Level 8.4L, Albumin 2.5L 07/10/18 11:32: Bedside Glucose (Misc Panel) 139H CBC/BMP Laboratory Tests 07/10/18 06:03 Red Blood Count 4.76, Mean Corpuscular Volume 92.6, Mean Corpuscular Hemoglobin 30.7, Mean Corpuscular Hemoglobin Concent 33.1, Red Cell Distribution Width 14.2, Neutrophils (%) (Auto) 74.7 H, Lymphocytes (%) (Auto) 17.2 L, Monocytes (%) (Auto) 6.7 H, Eosinophils (%) (Auto) 0.2, Basophils (%) (Auto) 0.3, Neutrophils # (Auto) 13.7 H, Lymphocytes # (Auto) 3.2, Monocytes # (Auto) 1.2 H, Eosinophils # (Auto) 0.0, Basophils # (Auto) 0.1, Calcium Level 8.4 L Microbiology Microbiology 07/07/18 Blood Culture - Preliminary, Resulted No Growth after 48 hours. All Specime... 07/07/18 Blood Culture - Preliminary, Resulted No Growth after 48 hours. All Specime... 07/08/18 Respiratory Virus Panel (PCR) ([facility]) - Final, Complete EMIL LAGUERRE DO Jul 10, 2018 15:28
--- NOTE | 2018-07-10 15:52 | REP ---
Portable chest x-ray: Single view. History: Acute respiratory failure. Comparison study: July 07, 2018. Findings: A left subclavian Pfhyas-Q-Sphf catheter is seen. Heart is not enlarged. There is a surgical clip projecting in the right paratracheal region. There are increased markings in the left base consistent with an infiltrate. This is a new finding compared to the prior study. Remaining lung garcia are clear. Pleural angles are sharp. Impression: New infiltrate left base laterally consistent with pneumonia. Electronically Signed by Jefry Chau MD 07/10/2018 03:43 P
[2018-07-10 16:11] LABS: ABG BASE EXCESS 7.8 (-2.0-2.0); ABG HCO3 34.2 MEQ/L (22.0-26.0); ABG O2 SATURATION 95.8 % (95.0-99.0); ABG PARTIAL PRESSURE CO2 54.3 mmHg (35.0-45.0); ABG PARTIAL PRESSURE O2 80.3 mmHg (75.0-100.0); ABG STANDARD HCO3 31.5 MEQ/L (22.0-26.0); ABG TOTAL CO2 35.9 MEQ/L (23.0-31.0); ABG pH (ARTERIAL) 7.417 UNITS (7.350-7.450)
[2018-07-10] MEDS: LevoFLOXacin IV 750 MG in APPROPRIATE DILUENT 1 EA IV SCH (23:31)
[2018-07-10] MEDS: RAMELTEON 8 MG TAB (ROZEREM) PO PRN (23:31)
[2018-07-11] MEDS: IPRATROPIUM 0.5MG/ALBUTEROL 2.5MG INH SOL UD 3ML (DUONEB)(J7620) NEB SCH ×4 (01:41→20:00)
[2018-07-11 06:26] LABS: BASO % 0.3 % (0.0-1.0); EOS % 0.3 % (0.0-3.0); HEMOGLOBIN 13.8 g/dl (12.0-15.5); MEAN CORPUSCULAR HEMOGLOBIN 30.3 pg (27.0-33.0); MEAN CORPUSCULAR HGB CONC 33.7 g/dl (32.0-36.5); MEAN CORPUSCULAR VOLUME 90.1 fl (80.0-96.0); MONO # 1.2 10^3/uL (0.0-0.8); MONO % 8.5 % (0.0-5.0); NEUTROPHILS # 9.3 10^3/uL (1.8-7.7); NEUTROPHILS % 68.2 % (36.0-66.0); PLATELET COUNT, AUTOMATED 183 10^3/uL (150-450); RED BLOOD COUNT 4.55 10^6/uL (4.00-5.40); WHITE BLOOD COUNT 13.6 10^3/uL (4.0-10.0)
[2018-07-11 06:52] LABS: BLOOD UREA NITROGEN 13 MG/DL (7-18); CARBON DIOXIDE LEVEL 35 MEQ/L (21-32); CHLORIDE LEVEL 92 MEQ/L (98-107); CREATININE FOR GFR 0.48 MG/DL (0.55-1.30); GLOMERULAR FILTRATION RATE > 60.0 (>45); GLUCOSE, FASTING 85 MG/DL (70-100); POTASSIUM SERUM 3.8 MEQ/L (3.5-5.1); SODIUM LEVEL 132 MEQ/L (136-145)
[2018-07-11] MEDS: HumaLOG INSULIN (NovoLOG) PER UNIT SC SCH ×4 (07:30→21:00)
[2018-07-11] MEDS: CitaloPRAM (CeleXA) 10 MG TABLET PO SCH (08:29)
[2018-07-11] MEDS: PANTOPRAZOLE 40MG TAB (PROTONIX) PO SCH (08:29)
[2018-07-11] MEDS: FLUDROCORTISONE ACETATE 0.1 MG TAB PO SCH (08:29)
[2018-07-11] MEDS: FOLIC ACID 1 MG TAB PO SCH (08:29)
[2018-07-11] MEDS: predniSONE 20 MG TAB PO SCH (08:29)
[2018-07-11] MEDS: ATORVASTATIN 20 MG TAB PO SCH (08:29)
[2018-07-11] MEDS: ASPIRIN 81 MG ENTERIC TAB PO SCH (08:29)
[2018-07-11] MEDS: THIAMINE 100 MG TAB PO SCH (08:29)
[2018-07-11] MEDS: CLOPIDOGREL 75 MG TAB PO SCH (08:29)
[2018-07-11] MEDS: ENOXAPARIN 30 MG/0.3 ML SYR (J1650) SC SCH (08:30)
[2018-07-11] MEDS: BUDESONIDE 180MCG INHALER (PULMICORT FLEXHALER) INH SCH ×2 (08:43→21:00)
[2018-07-11 10:00] VITALS: BP 90/58
[2018-07-11] MEDS: LevoFLOXacin 750 MG TABLET PO SCH (10:07)
[2018-07-11] MEDS ORDERED: NS 500 ML IV ONE (10:45)
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
[2018-07-11 14:00] VITALS: BP 129/57
[2018-07-11 22:00] VITALS: BP 103/58
[2018-07-12] MEDS: IPRATROPIUM 0.5MG/ALBUTEROL 2.5MG INH SOL UD 3ML (DUONEB)(J7620) NEB SCH ×4 (01:27→20:55)
[2018-07-12] MEDS: LevoFLOXacin 750 MG TABLET PO SCH (05:22)
[2018-07-12 06:00] VITALS: BP 107/68
[2018-07-12 06:59] LABS: BASO % 0.1 % (0.0-1.0); EOS # 0.1 10^3/uL (0.0-0.50); EOS % 0.5 % (0.0-3.0); HEMATOCRIT 43.2 % (36.0-47.0); HEMOGLOBIN 14.5 g/dl (12.0-15.5); LYMPH # 3.6 10^3/uL (1.5-4.5); LYMPH % 26.3 % (24.0-44.0); MEAN CORPUSCULAR HEMOGLOBIN 30.1 pg (27.0-33.0); MEAN CORPUSCULAR HGB CONC 33.6 g/dl (32.0-36.5); MEAN CORPUSCULAR VOLUME 89.8 fl (80.0-96.0); MONO # 1.2 10^3/uL (0.0-0.8); MONO % 8.4 % (0.0-5.0); NEUTROPHILS # 8.8 10^3/uL (1.8-7.7); NEUTROPHILS % 64.1 % (36.0-66.0); PLATELET COUNT, AUTOMATED 229 10^3/uL (150-450); RED BLOOD COUNT 4.81 10^6/uL (4.00-5.40); WHITE BLOOD COUNT 13.7 10^3/uL (4.0-10.0)
[2018-07-12 07:23] LABS: BLOOD UREA NITROGEN 11 MG/DL (7-18); CALCIUM LEVEL 7.8 MG/DL (8.8-10.2); CARBON DIOXIDE LEVEL 32 MEQ/L (21-32); CHLORIDE LEVEL 93 MEQ/L (98-107); CREATININE FOR GFR 0.47 MG/DL (0.55-1.30); GLOMERULAR FILTRATION RATE > 60.0 (>45); GLUCOSE, FASTING 84 MG/DL (70-100); POTASSIUM SERUM 3.3 MEQ/L (3.5-5.1); SODIUM LEVEL 132 MEQ/L (136-145)
[2018-07-12] MEDS: HumaLOG INSULIN (NovoLOG) PER UNIT SC SCH ×4 (07:26→21:00)
[2018-07-12] MEDS ORDERED: POTASSIUM CHLORIDE 10 MEQ SR TABLET PO ONE (08:00)
[2018-07-12] MEDS ORDERED: ACETAMINOPHEN TAB 650MG DOSE (2X325MG) PO PRN (08:30)
[2018-07-12] MEDS: BUDESONIDE 180MCG INHALER (PULMICORT FLEXHALER) INH SCH ×2 (08:35→21:00)
[2018-07-12] MEDS: PANTOPRAZOLE 40MG TAB (PROTONIX) PO SCH (09:00)
[2018-07-12] MEDS: SENOKOT S TAB PO SCH ×2 (09:06→21:00)
[2018-07-12] MEDS: MIRALAX *UNIT DOSE* 17GM PACKET PO SCH (09:06)
[2018-07-12] MEDS: ENOXAPARIN 30 MG/0.3 ML SYR (J1650) SC SCH (09:06)
[2018-07-12] MEDS: ASPIRIN 81 MG ENTERIC TAB PO SCH (09:07)
[2018-07-12] MEDS: FOLIC ACID 1 MG TAB PO SCH (09:07)
[2018-07-12] MEDS: FLUDROCORTISONE ACETATE 0.1 MG TAB PO SCH (09:07)
[2018-07-12] MEDS: CitaloPRAM (CeleXA) 10 MG TABLET PO SCH (09:07)
[2018-07-12] MEDS: THIAMINE 100 MG TAB PO SCH (09:07)
[2018-07-12] MEDS: predniSONE 20 MG TAB PO SCH (09:07)
[2018-07-12] MEDS: ATORVASTATIN 20 MG TAB PO SCH (09:07)
[2018-07-12] MEDS: CLOPIDOGREL 75 MG TAB PO SCH (09:07)
[2018-07-12 14:00] VITALS: BP 100/60
--- NOTE | 2018-07-12 14:17 | IPNPDOC ---
Date Seen The patient was seen on 07/12/18. Progress Note SUBJECTIVE: Patient is a 62-year-old female with weakness and deconditioning. Patient is evaluated at bedside this morning. She remains in the left lateral decubitus position. She offers no complaints. She says that she does not want to go to rehabilitation and that she will be discharged to a motel, if needed. She says she does not feel well and when queried what that means she says that she did not sleep well last night. OBJECTIVE PHYSICAL EXAMINATION: VITAL SIGNS: Please see below. GENERAL: Elderly appearing female, alert and conversant, blunted affect, does not appear to be in distress. HEENT: Atraumatic, normocephalic, PERRL, EOMI, oral mucosa appears pink and moist, nasal septum appears midline, nares are patent. CARDIOVASCULAR: Regular rate and rhythm, normal S1 and S2, no murmur, rub, click. RESPIRATORY: Clear to auscultation bilaterally with coarse breath sounds noted throughout, adequate inspiratory and expiratory airway excursion, symmetric airway entry, no focal consolidations appreciated, expiratory wheezing appreciated. ABDOMINAL: Round, soft, nontender, nondistended. EXTREMITIES: No clubbing, no cyanosis, no peripheral edema. NEUROLOGICAL: No focal neurological deficits. PSYCHOLOGICAL: Blunted affect. LABORATORY DATA, IMAGING STUDIES, MICROBIOLOGY: Please see below. Chest x-ray, 1 view on 07/07/2018 - chronic stable interstitial changes, cannot exclude very subtle left lower lobe atelectasis. Portable chest x-ray on 07/10/2018 - new infiltrate left base laterally consistent with pneumonia. DVT prophylaxis ordered?: Lovenox 40 mg subcutaneous daily; TEDs, sequentials, knee-high compression. ASSESSMENT AND PLAN: This is a 62-year-old female with weakness and deconditioning most likely secondary to chronic obstructive pulmonary disease exacerbation related to community acquired pneumonia. PROBLEMS: 1. Chronic obstructive pulmonary disease exacerbation: Likely secondary to underlying pneumonia. Adjusted to oral Levaquin. Influenza screen was negative. Respiratory panel is negative. Continued leukocytosis. Improved heart rate and blood pressure. Lactic acidosis has improved. Status-post 2 L fluid bolus. Status post intravenous fluid resuscitation with normal saline 75 mLs per hour. Continue oral prednisone (day #5). Continue with DuoNeb's, budesonide, incentive spirometer, and Acapella. MRSA screen negative. Reordered sputum gram stain and culture. Blood cultures are negative after 72 hours of growth. 2. Acute respiratory distress: Does not wear oxygen at home. She has been weaned from 4L of oxygen via nasal cannula to room air. Oxygen saturation is currently on 91%. ABG is not significantly different from ABG obtained on 07/07/2018. Chest x-ray as resulted above which indicates possible pneumonia. Adjusted to oral Levaquin. Continue his DuoNeb's, budesonide, Acapella, and incentive spirometer. 3. Community acquired pneumonia: Adjusted to oral Levaquin. Continued leukocytosis. Influenza screen negative. Urine Legionella and streptococcus pneumoniae pending. Febrile with temperature of 100.4. Tylenol provided. 4. Diabetes mellitus: Metformin on hold. Continue with sliding scale insulin before meals and at bedtime, hypoglycemic protocol, fingersticks before meals and at bedtime, and consistent carbohydrate diet. 5. Coronary artery disease: Continue aspirin, Plavix, Lipitor. 6. Depression: Continue Celexa. 7. History of orthostatic hypertension: Continue Florinef. 8. Physical deconditioning and weakness: Occupational therapy have determined patient is safe for discharge to previous level of care. Physical therapy documented that patient demonstrates poor motivation and "fails to demonstrate further mobility." Patient and family services assisting with acute vs. subacute vs. home servicing needs. ARU screening ordered. Spoke extensively with patient's daughter, Bety , who has informed me that patient was living in unsafe and unsanitary conditions (i.e. patient was covered in feces), but was not aware of her current state. Daughter states that she is unable to care for her Mother in her home as she has her own family responsi bilities. Further states that her Mother refuses assisted living and has refused to have services in the home. Daughter states that Mother is no longer welcome to return to former residence as she violated her housing contract by smoking in the apartment. Her lease terminated in May 2018, but the landlords extended her lease until August 2018, according to the daughter. 9. Tobacco dependence: Active smoker. Pre-contemplative. 10. Gastroesophageal reflux disease: Continue Protonix. 11. History of alcoholism: Continue Folic Acid and Thiamine. 12. Insomnia: Continue Ramelteon. DISPOSITION: Improvement in respiratory status. Physical and occupational therapy. Patient and family services for rehabilitation needs. VS, I&O, 24H, [facility] Vital Signs/I&O Vital Signs Date Time Temp Pulse Resp B/P (MAP) Pulse Ox O2 Delivery O2 Flow Rate FiO2 07/12/18 06:00 99.4 80 18 107/68 (81) 91 Room Air 07/11/18 09:00 1.0 I&O- Last 24 Hours up to 6 AM 07/12/18 06:00 Intake Total 2150 ml Output Total 1100 ml Balance 1050 ml Laboratory Data 24H LABS Laboratory Tests 2 07/11/18 16:32: Bedside Glucose (Misc Panel) 233H 07/11/18 20:51: Bedside Glucose (Misc Panel) 190H 07/12/18 05:59: Bedside Glucose (Misc Panel) 113 07/12/18 06:21: Immature Granulocyte % (Auto) 0.6, White Blood Count 13.7H, Red Blood Count 4.81, Hemoglobin 14.5, Hematocrit 43.2, Mean Corpuscular Volume 89.8, Mean Corpuscular Hemoglobin 30.1, Mean Corpuscular Hemoglobin Concent 33.6, Red Cell Distribution Width 13.7, Platelet Count 229, Neutrophils (%) (Auto) 64.1, Lymphocytes (%) (Auto) 26.3, Monocytes (%) (Auto) 8.4H, Eosinophils (%) (Auto) 0.5, Basophils (%) (Auto) 0.1, Neutrophils # (Auto) 8.8H, Lymphocytes # (Auto) 3.6, Monocytes # (Auto) 1.2H, Eosinophils # (Auto) 0.1, Basophils # (Auto) 0.0, Nucleated Red Blood Cells % (auto) 0.0, Anion Gap 7L, Glomerular Filtration Rate > 60.0, Blood Urea Nitrogen 11, Creatinine 0.47L, Sodium Level 132L, Potassium Level 3.3L, Chloride Level 93L, Carbon Dioxide Level 32, Calcium Level 7.8L 07/12/18 11:27: Bedside Glucose (Misc Panel) 133H CBC/BMP Laboratory Tests 07/12/18 06:21 Red Blood Count 4.81, Mean Corpuscular Volume 89.8, Mean Corpuscular Hemoglobin 30.1, Mean Corpuscular Hemoglobin Concent 33.6, Red Cell Distribution Width 13.7, Neutrophils (%) (Auto) 64.1, Lymphocytes (%) (Auto) 26.3, Monocytes (%) (Auto) 8.4 H, Eosinophils (%) (Auto) 0.5, Basophils (%) (Auto) 0.1, Neutrophils # (Auto) 8.8 H, Lymphocytes # (Auto) 3.6, Monocytes # (Auto) 1.2 H, Eosinophils # (Auto) 0.1, Basophils # (Auto) 0.0, Calcium Level 7.8 L Microbiology Microbiology 07/07/18 Blood Culture - Preliminary, Resulted No Growth after 72 hours. All specime... 07/07/18 Blood Culture - Preliminary, Resulted No Growth after 72 hours. All specime... 07/10/18 MRSA Screen - Final, Complete 07/08/18 Respiratory Virus Panel (PCR) ([facility]) - Final, Complete EMIL LAGUERRE DO Jul 12, 2018 14:16
[2018-07-12 22:00] VITALS: BP 106/67
[2018-07-13] MEDS: IPRATROPIUM 0.5MG/ALBUTEROL 2.5MG INH SOL UD 3ML (DUONEB)(J7620) NEB SCH ×4 (01:52→20:31)
[2018-07-13] MEDS: LevoFLOXacin 750 MG TABLET PO SCH (05:38)
[2018-07-13 06:00] VITALS: BP 122/73
[2018-07-13 07:00] LABS: BASO % 0.2 % (0.0-1.0); EOS % 0.1 % (0.0-3.0); HEMATOCRIT 45.4 % (36.0-47.0); HEMOGLOBIN 15.3 g/dl (12.0-15.5); LYMPH # 2.5 10^3/uL (1.5-4.5); LYMPH % 15.3 % (24.0-44.0); MEAN CORPUSCULAR HEMOGLOBIN 30.8 pg (27.0-33.0); MEAN CORPUSCULAR HGB CONC 33.7 g/dl (32.0-36.5); MEAN CORPUSCULAR VOLUME 91.3 fl (80.0-96.0); MONO # 1.1 10^3/uL (0.0-0.8); MONO % 6.6 % (0.0-5.0); NEUTROPHILS # 12.4 10^3/uL (1.8-7.7); NEUTROPHILS % 77.2 % (36.0-66.0); PLATELET COUNT, AUTOMATED 228 10^3/uL (150-450); RED BLOOD COUNT 4.97 10^6/uL (4.00-5.40); WHITE BLOOD COUNT 16.1 10^3/uL (4.0-10.0)
[2018-07-13 07:22] LABS: BLOOD UREA NITROGEN 15 MG/DL (7-18); CALCIUM LEVEL 8.1 MG/DL (8.8-10.2); CARBON DIOXIDE LEVEL 31 MEQ/L (21-32); CHLORIDE LEVEL 94 MEQ/L (98-107); CREATININE FOR GFR 0.52 MG/DL (0.55-1.30); GLOMERULAR FILTRATION RATE > 60.0 (>45); GLUCOSE, FASTING 93 MG/DL (70-100); POTASSIUM SERUM 3.9 MEQ/L (3.5-5.1); SODIUM LEVEL 131 MEQ/L (136-145)
[2018-07-13] MEDS: HumaLOG INSULIN (NovoLOG) PER UNIT SC SCH ×4 (07:30→21:00)
[2018-07-13] MEDS: BUDESONIDE 180MCG INHALER (PULMICORT FLEXHALER) INH SCH ×2 (08:23→20:31)
[2018-07-13] MEDS: ATORVASTATIN 20 MG TAB PO SCH (09:59)
[2018-07-13] MEDS: ASPIRIN 81 MG ENTERIC TAB PO SCH (09:59)
[2018-07-13] MEDS: THIAMINE 100 MG TAB PO SCH (09:59)
[2018-07-13] MEDS: MIRALAX *UNIT DOSE* 17GM PACKET PO SCH (09:59)
[2018-07-13] MEDS: SENOKOT S TAB PO SCH ×2 (09:59→21:59)
[2018-07-13] MEDS: CitaloPRAM (CeleXA) 10 MG TABLET PO SCH (09:59)
[2018-07-13] MEDS: PANTOPRAZOLE 40MG TAB (PROTONIX) PO SCH (09:59)
[2018-07-13] MEDS: FOLIC ACID 1 MG TAB PO SCH (09:59)
[2018-07-13] MEDS: CLOPIDOGREL 75 MG TAB PO SCH (10:00)
[2018-07-13] MEDS: FLUDROCORTISONE ACETATE 0.1 MG TAB PO SCH (10:00)
[2018-07-13] MEDS: ENOXAPARIN 30 MG/0.3 ML SYR (J1650) SC SCH (10:00)
--- NOTE | 2018-07-13 11:40 | IPNPDOC ---
Date Seen The patient was seen on 07/13/18. Progress Note SUBJECTIVE: Patient is a 62-year-old female with weakness and deconditioning. Patient is evaluated at bedside this morning. She remains in the left lateral decubitus/semi-supine position. She offers no complaints. She queries whether or not she can go home. Denies chest pain, shortness of breath, nausea, vomiting, abdominal pain, fever, night sweats, chills. OBJECTIVE PHYSICAL EXAMINATION: VITAL SIGNS: Please see below. GENERAL: Elderly appearing female, alert and conversant, blunted affect, does not appear to be in distress. HEENT: Atraumatic, normocephalic, PERRL, EOMI, oral mucosa appears pink and moist, nasal septum appears midline, nares are patent. CARDIOVASCULAR: Regular rate and rhythm, normal S1 and S2, no murmur, rub, click. RESPIRATORY: Clear to auscultation bilaterally, adequate inspiratory and expiratory airway excursion, symmetric airway entry, no focal consolidations appreciated, expiratory wheezing appreciated. ABDOMINAL: Round, soft, nontender, nondistended. EXTREMITIES: No clubbing, no cyanosis, no peripheral edema. NEUROLOGICAL: No focal neurological deficits. PSYCHOLOGICAL: Blunted affect. LABORATORY DATA, IMAGING STUDIES, MICROBIOLOGY: Please see below. Chest x-ray, 1 view on 07/07/2018 - chronic stable interstitial changes, cannot exclude very subtle left lower lobe atelectasis. Portable chest x-ray on 07/10/2018 - new infiltrate left base laterally consistent with pneumonia. DVT prophylaxis ordered?: Lovenox 40 mg subcutaneous daily; TEDs, sequentials, knee-high compression. ASSESSMENT AND PLAN: This is a 62-year-old female with weakness and deconditioning most likely secondary to chronic obstructive pulmonary disease exacerbation related to community acquired pneumonia. PROBLEMS: 1. Chronic obstructive pulmonary disease exacerbation: Likely secondary to underlying pneumonia. Continue oral Levaquin. Influenza screen was negative. Respiratory panel is negative. Continued leukocytosis. Improved heart rate and blood pressure. Lactic acidosis has improved. Status-post 2 L fluid bolus. Status post intravenous fluid resuscitation with normal saline 75 mLs per hour. Completed oral Prednisone course. Continue with DuoNeb's, budesonide, incentive spirometer, and Acapella. MRSA screen negative. Sputum gram stain and culture ordered. Blood cultures are negative after 72 hours of growth. 2. Acute respiratory distress: Likely secondary to underlying COPD. Does not wear oxygen at home. She has been weaned from 4L of oxygen via nasal cannula to room air. Oxygen saturation is currently on 92%. ABG is not significantly different from ABG obtained on 07/07/2018. Chest x-ray as resulted above which indicates possible pneumonia. Continue with oral Levaquin. Continue his DuoNeb's, budesonide, Acapella, and incentive spirometer. 3. Community acquired pneumonia: Continue oral Levaquin. Continued leukocytosis. Influenza screen negative. Urine Legionella and streptococcus pneumoniae pending. Febrile with temperature of 100.4. Tylenol provided. 4. Hyponatremia: Serum osmolality 276. Urine osmolality and sodium have been ordered. Renal function within normal limits. 5. Diabetes mellitus: Metformin on hold. Continue with sliding scale insulin before meals and at bedtime, hypoglycemic protocol, fingersticks before meals and at bedtime, and consistent carbohydrate diet. 6. Coronary artery disease: Continue aspirin, Plavix, Lipitor. 7. Depression: Continue Celexa. 8. History of orthostatic hypertension: Continue Florinef. 9. Physical deconditioning and weakness: Occupational therapy have determined patient is safe for discharge to previous level of care. Physical therapy documented that patient demonstrates poor motivation and "fails to demonstrate further mobility." Patient and family services assisting with acute vs. subacute vs. home servicing needs. ARU screening ordered. Spoke extensively with patient's daughter, Bety , who has informed me that patient was living in unsafe and unsanitary conditions (i.e. patient was covered in feces), but was not aware of her current state. Daughter states that she is unable to care for her Mother in her home as she has her own family responsibilities. Further states that her Mother refuses assisted living and has refused to have services in the home. Daughter states that Mother is no james christie welcome to return to former residence as she violated her housing contract by smoking in the apartment. Her lease terminated in May 2018, but the landlords extended her lease until August 2018, according to the daughter. 10. Tobacco dependence: Active smoker. Pre-contemplative. 11. Gastroesophageal reflux disease: Continue Protonix. 12. History of alcoholism: Continue Folic Acid and Thiamine. 13. Insomnia: Continue Ramelteon. DISPOSITION: Improvement in respiratory status. Physical and occupational therapy. Patient and family services for rehabilitation needs. [facility]O Vital Signs Date Time Temp Pulse Resp B/P (MAP) Pulse Ox O2 Delivery O2 Flow Rate FiO2 07/13/18 06:00 98.8 82 18 122/73 (89) 92 07/12/18 06:00 Room Air 07/11/18 09:00 1.0 I&O- Last 24 Hours up to 6 AM 07/13/18 06:00 Intake Total 1440 ml Output Total 1000 ml Balance 440 ml Laboratory Data 24H LABS Laboratory Tests 2 07/12/18 16:32: Bedside Glucose (Misc Panel) 218H 07/12/18 21:28: Bedside Glucose (Misc Panel) 234H 07/13/18 06:45: Immature Granulocyte % (Auto) 0.6, White Blood Count 16.1H, Red Blood Count 4.97, Hemoglobin 15.3, Hematocrit 45.4, Mean Corpuscular Volume 91.3, Mean Corpuscular Hemoglobin 30.8, Mean Corpuscular Hemoglobin Concent 33.7, Red Cell Distribution Width 14.1, Platelet Count 228, Neutrophils (%) (Auto) 77.2H, Lymphocytes (%) (Auto) 15.3L, Monocytes (%) (Auto) 6.6H, Eosinophils (%) (Auto) 0.1, Basophils (%) (Auto) 0.2, Neutrophils # (Auto) 12.4H, Lymphocytes # (Auto) 2.5, Monocytes # (Auto) 1.1H, Eosinophils # (Auto) 0.0, Basophils # (Auto) 0.0, Nucleated Red Blood Cells % (auto) 0.0, Anion Gap 6L, Glomerular Filtration Rate > 60.0, Blood Urea Nitrogen 15, Creatinine 0.52L, Sodium Level 131L, Potassium Level 3.9, Chloride Level 94L, Carbon Dioxide Level 31, Calcium Level 8.1L 07/13/18 08:30: Osmolality 276L CBC/BMP Laboratory Tests 07/13/18 06:45 Red Blood Count 4.97, Mean Corpuscular Volume 91.3, Mean Corpuscular Hemoglobin 30.8, Mean Corpuscular Hemoglobin Concent 33.7, Red Cell Distribution Width 14.1, Neutrophils (%) (Auto) 77.2 H, Lymphocytes (%) (Auto) 15.3 L, Monocytes (%) (Auto) 6.6 H, Eosinophils (%) (Auto) 0.1, Basophils (%) (Auto) 0.2, Neutrophils # (Auto) 12.4 H, Lymphocytes # (Auto) 2.5, Monocytes # (Auto) 1.1 H, Eosinophils # (Auto) 0.0, Basophils # (Auto) 0.0, Calcium Level 8.1 L Microbiology Microbiology 07/07/18 Blood Culture - Final, Complete NO GROWTH AFTER 5 DAYS 07/07/18 Blood Culture - Final, Complete NO GROWTH AFTER 5 DAYS 07/10/18 MRSA Screen - Final, Complete 07/08/18 Respiratory Virus Panel (PCR) ([facility]) - Final, Complete EMIL LAGUERRE DO Jul 13, 2018 11:40
[2018-07-13 14:00] VITALS: BP 93/51
[2018-07-13 22:00] VITALS: BP 97/68
[2018-07-13] MEDS: RAMELTEON 8 MG TAB (ROZEREM) PO PRN (22:53)
[2018-07-14 00:06] LABS: BODY FLUID CULTURE Not Indicated (.); LEGIONELLA ANTIGEN URINE Negative (Negative); ORGANISM ID Not indicated. (.); SPECIMEN SOURCE Urine (.); URINE STREP PNEUMONIAE ANTIGEN Negative (Negative)
[2018-07-14] MEDS: IPRATROPIUM 0.5MG/ALBUTEROL 2.5MG INH SOL UD 3ML (DUONEB)(J7620) NEB SCH ×4 (01:23→19:47)
[2018-07-14 06:00] VITALS: BP 96/62
[2018-07-14 06:01] LABS: BASO # 0.1 10^3/uL (0.0-0.2); BASO % 0.4 % (0.0-1.0); EOS # 0.1 10^3/uL (0.0-0.50); EOS % 0.5 % (0.0-3.0); HEMATOCRIT 46.3 % (36.0-47.0); HEMOGLOBIN 15.4 g/dl (12.0-15.5); LYMPH # 3.5 10^3/uL (1.5-4.5); LYMPH % 18.6 % (24.0-44.0); MEAN CORPUSCULAR HEMOGLOBIN 30.4 pg (27.0-33.0); MEAN CORPUSCULAR HGB CONC 33.3 g/dl (32.0-36.5); MEAN CORPUSCULAR VOLUME 91.5 fl (80.0-96.0); MONO # 1.2 10^3/uL (0.0-0.8); MONO % 6.3 % (0.0-5.0); NEUTROPHILS # 13.6 10^3/uL (1.8-7.7); NEUTROPHILS % 73.3 % (36.0-66.0); PLATELET COUNT, AUTOMATED 242 10^3/uL (150-450); RED BLOOD COUNT 5.06 10^6/uL (4.00-5.40); WHITE BLOOD COUNT 18.6 10^3/uL (4.0-10.0)
[2018-07-14] MEDS: LevoFLOXacin 750 MG TABLET PO SCH (06:06)
[2018-07-14 06:21] LABS: BLOOD UREA NITROGEN 19 MG/DL (7-18); CALCIUM LEVEL 7.8 MG/DL (8.8-10.2); CARBON DIOXIDE LEVEL 30 MEQ/L (21-32); CHLORIDE LEVEL 97 MEQ/L (98-107); CREATININE FOR GFR 0.49 MG/DL (0.55-1.30); GLOMERULAR FILTRATION RATE > 60.0 (>45); GLUCOSE, FASTING 92 MG/DL (70-100); POTASSIUM SERUM 3.7 MEQ/L (3.5-5.1); SODIUM LEVEL 134 MEQ/L (136-145)
[2018-07-14] MEDS: BUDESONIDE 180MCG INHALER (PULMICORT FLEXHALER) INH SCH ×2 (07:18→19:47)
[2018-07-14] MEDS: HumaLOG INSULIN (NovoLOG) PER UNIT SC SCH ×4 (07:59→21:00)
[2018-07-14] MEDS: PANTOPRAZOLE 40MG TAB (PROTONIX) PO SCH (08:41)
[2018-07-14] MEDS: CitaloPRAM (CeleXA) 10 MG TABLET PO SCH (08:41)
[2018-07-14] MEDS: THIAMINE 100 MG TAB PO SCH (08:41)
[2018-07-14] MEDS: SENOKOT S TAB PO SCH ×2 (08:41→21:00)
[2018-07-14] MEDS: ATORVASTATIN 20 MG TAB PO SCH (08:41)
[2018-07-14] MEDS: FLUDROCORTISONE ACETATE 0.1 MG TAB PO SCH (08:41)
[2018-07-14] MEDS: ENOXAPARIN 30 MG/0.3 ML SYR (J1650) SC SCH (08:42)
[2018-07-14] MEDS: ASPIRIN 81 MG ENTERIC TAB PO SCH (08:42)
[2018-07-14] MEDS: CLOPIDOGREL 75 MG TAB PO SCH (08:42)
[2018-07-14] MEDS: FOLIC ACID 1 MG TAB PO SCH (08:42)
[2018-07-14] MEDS: MIRALAX *UNIT DOSE* 17GM PACKET PO SCH (09:00)
[2018-07-14 10:34] LABS: ERYTHROCYTE SEDIMENTATION RATE 3 mm/hr (0-30)
[2018-07-14 14:00] VITALS: BP 91/51
[2018-07-14] MEDS ORDERED: SODIUM CHLORIDE 0.9% 1000ML IV ONE (14:30)
--- NOTE | 2018-07-14 14:37 | IPNPDOC ---
Date Seen The patient was seen on 07/14/18. Progress Note SUBJECTIVE: Patient is a 62-year-old female with weakness and deconditioning. Patient is evaluated at bedside this morning. She is laying on her right sided during evaluation. She denies fever, night sweats, chills, dysuria, pelvic pain, nausea, vomiting, abdominal pain, chest pain, shortness of breath. States that she is coughing, but it is not productive. OBJECTIVE PHYSICAL EXAMINATION: VITAL SIGNS: Please see below. GENERAL: Elderly appearing female, alert and conversant, blunted affect, does not appear to be in distress. HEENT: Atraumatic, normocephalic, PERRL, EOMI, oral mucosa appears pink and moist, nasal septum appears midline, nares are patent. CARDIOVASCULAR: Regular rate and rhythm, normal S1 and S2, no murmur, rub, click. RESPIRATORY: Clear to auscultation bilaterally, adequate inspiratory and expiratory airway excursion, symmetric airway entry, no focal consolidations appreciated, no wheeze, rhonchi, crackles. ABDOMINAL: Round, soft, nontender, nondistended. EXTREMITIES: No clubbing, no cyanosis, no peripheral edema. NEUROLOGICAL: No focal neurological deficits. PSYCHOLOGICAL: Blunted affect. LABORATORY DATA, IMAGING STUDIES, MICROBIOLOGY: Please see below. Chest x-ray, 1 view on 07/07/2018 - chronic stable interstitial changes, cannot exclude very subtle left lower lobe atelectasis. Portable chest x-ray on 07/10/2018 - new infiltrate left base laterally consistent with pneumonia. DVT prophylaxis ordered?: Lovenox 40 mg subcutaneous daily; TEDs, sequentials, knee-high compression. ASSESSMENT AND PLAN: This is a 62-year-old female with weakness and deconditioning most likely secondary to chronic obstructive pulmonary disease exacerbation related to community acquired pneumonia. PROBLEMS: 1. Chronic obstructive pulmonary disease exacerbation: Likely secondary to underlying pneumonia. Continue oral Levaquin. Influenza screen was negative. Respiratory panel is negative. Increasing leukocytosis. Obtained lactic acid which was initially elevated with repeat that was within normal limits. ESR and CRP obtained with mild elevation in CRP. Status-post 2 L fluid bolus. Status post intravenous fluid resuscitation with normal saline 75 mLs per hour. Oral Prednisone completed. Continue with DuoNeb's, budesonide, incentive spirometer, and Acapella. MRSA screen negative. Blood cultures are negative after 5 days of growth. 2. Acute respiratory distress: Likely secondary to underlying COPD. Does not wear oxygen at home. Currently saturating at 98% on room air. ABG is not significantly different from ABG obtained on 07/07/2018. Chest x-ray as resulted above which indicates possible pneumonia. Continue with oral Levaquin. Continue his DuoNeb's, budesonide, Acapella, and incentive spirometer. 3. Community acquired pneumonia: Continue oral Levaquin. Continued leukocytosis. Influenza screen negative. Urine Legionella and streptococcus pneumoniae negative. Afebrile. 4. Leukocytosis: Obtained lactic acid which was initially elevated, but repeat was within normal limits. CRP only mildly elevated. ESR within normal limits. Somewhat low blood pressure. Peripheral smear ordered. 5. Hyponatremia: Improved. Serum osmolality 276. Urine osmolality and sodium have been ordered. Renal function within normal limits. 6. Diabetes mellitus: Metformin on hold. Continue with sliding scale insulin before meals and at bedtime, hypoglycemic protocol, fingersticks before meals and at bedtime, and consistent carbohydrate diet. 7. Coronary artery disease: Continue aspirin, Plavix, Lipitor. 8. Depression: Continue Celexa. 9. History of orthostatic hypertension: Continue Florinef. 10. Physical deconditioning and weakness: Occupational therapy have determined patient is safe for discharge to previous level of care. Physical therapy documented that patient demonstrates poor motivation and "fails to demonstrate further mobility." Patient and family services assisting with acute vs. subacute vs. home servicing needs. ARU screening ordered. Spoke extensively with patient's daughter, Bety , who has informed me that patient was living in unsafe and unsanitary conditions (i.e. patient was covered in feces), but was not aware of her current state. Daughter states that she is unable to care for her Mother in her home as she has her own family responsibilities. Further states that her Mother refuses assisted living and has refused to have services in the home. Daughter states that Mother is no longer welcome to return to former residence as she violated her housing contract by smoking in the apartment. Her lease terminated in May 2018, but the landlords extended her lease until August 2018, according to the daughter. 11. Tobacco dependence: Active smoker. Pre-contemplative. 12. Gastroesophageal reflux disease: Continue Protonix. 13. History of alcoholism: Continue Folic Acid and Thiamine. 14. Insomnia: Continue Ramelteon. DISPOSITION: Improvement in respiratory status. Patient and family services for rehabilitation needs. VS, I&O, 24H, [facility] Vital Signs/I&O Vital Signs Date Time Temp Pulse Resp B/P (MAP) Pulse Ox O2 Delivery O2 Flow Rate FiO2 07/14/18 07:48 97.5 07/14/18 06:00 22 18 96/62 (73) 98 07/12/18 06:00 Room Air 07/11/18 09:00 1.0 I&O- Last 24 Hours up to 6 AM 07/14/18 06:00 Intake Total 4080 ml Output Total 0 ml Balance 4080 ml Laboratory Data 24H LABS Laboratory Tests 2 07/13/18 16:54: Bedside Glucose (Misc Panel) 131H 07/13/18 19:54: Bedside Glucose (Misc Panel) 127H 07/14/18 05:40: Immature Granulocyte % (Auto) 0.9, White Blood Count 18.6H, Red Blood Count 5.06, Hemoglobin 15.4, Hematocrit 46.3, Mean Corpuscular Volume 91.5, Mean Corpuscular Hemoglobin 30.4, Mean Corpuscular Hemoglobin Concent 33.3, Red Cell Distribution Width 14.4, Platelet Count 242, Neutrophils (%) (Auto) 73.3H, Lymphocytes (%) (Auto) 18.6L, Monocytes (%) (Auto) 6.3H, Eosinophils (%) (Auto) 0.5, Basophils (%) (Auto) 0.4, Neutrophils # (Auto) 13.6H, Lymphocytes # (Auto) 3.5, Monocytes # (Auto) 1.2H, Eosinophils # (Auto) 0.1, Basophils # (Auto) 0.1, Nucleated Red Blood Cells % (auto) 0.0, Erythrocyte Sedimentation Rate 3, Anion Gap 7L, Glomerular Filtration Rate > 60.0, Blood Urea Nitrogen 19H, Creatinine 0.49L, Sodium Level 134L, Potassium Level 3.7, Chloride Level 97L, Carbon Dioxide Level 30, Calcium Level 7.8L, C-Reactive Protein, Quantitative 0.40H 07/14/18 09:10: Lactic Acid Level 2.8*H 07/14/18 11:28: Bedside Glucose (Misc Panel) 188H 07/14/18 13:39: CBC/BMP Laboratory Tests 07/14/18 05:40 Red Blood Count 5.06, Mean Corpuscular Volume 91.5, Mean Corpuscular Hemoglobin 30.4, Mean Corpuscular Hemoglobin Concent 33.3, Red Cell Distribution Width 14.4, Neutrophils (%) (Auto) 73.3 H, Lymphocytes (%) (Auto) 18.6 L, Monocytes (%) (Auto) 6.3 H, Eosinophils (%) (Auto) 0.5, Basophils (%) (Auto) 0.4, Neutrophils # (Auto) 13.6 H, Lymphocytes # (Auto) 3.5, Monocytes # (Auto) 1.2 H, Eosinophils # (Auto) 0.1, Basophils # (Auto) 0.1, Calcium Level 7.8 L Microbiology Microbiology 07/07/18 Blood Culture - Final, Complete NO GROWTH AFTER 5 DAYS 07/07/18 Blood Culture - Final, Complete NO GROWTH AFTER 5 DAYS 07/10/18 MRSA Screen - Final, Complete 07/08/18 Respiratory Virus Panel (PCR) ([facility]) - Final, Complete EMIL LAGUERRE DO Jul 14, 2018 14:37
[2018-07-14 22:00] VITALS: BP 97/56
[2018-07-15] MEDS: IPRATROPIUM 0.5MG/ALBUTEROL 2.5MG INH SOL UD 3ML (DUONEB)(J7620) NEB SCH ×4 (02:48→21:07)
[2018-07-15 06:00] VITALS: BP 111/60
[2018-07-15 06:26] LABS: BASO # 0.1 10^3/uL (0.0-0.2); BASO % 0.3 % (0.0-1.0); EOS # 0.1 10^3/uL (0.0-0.50); EOS % 0.7 % (0.0-3.0); HEMATOCRIT 42.5 % (36.0-47.0); LYMPH # 2.6 10^3/uL (1.5-4.5); LYMPH % 14.9 % (24.0-44.0); MEAN CORPUSCULAR HEMOGLOBIN 29.9 pg (27.0-33.0); MEAN CORPUSCULAR HGB CONC 32.9 g/dl (32.0-36.5); MEAN CORPUSCULAR VOLUME 90.8 fl (80.0-96.0); MONO # 1.2 10^3/uL (0.0-0.8); NEUTROPHILS # 13.2 10^3/uL (1.8-7.7); NEUTROPHILS % 76.1 % (36.0-66.0); PLATELET COUNT, AUTOMATED 238 10^3/uL (150-450); RED BLOOD COUNT 4.68 10^6/uL (4.00-5.40); WHITE BLOOD COUNT 17.3 10^3/uL (4.0-10.0)
[2018-07-15] MEDS: LevoFLOXacin 750 MG TABLET PO SCH (06:31)
[2018-07-15 06:48] LABS: BLOOD UREA NITROGEN 15 MG/DL (7-18); CALCIUM LEVEL 7.8 MG/DL (8.8-10.2); CARBON DIOXIDE LEVEL 31 MEQ/L (21-32); CHLORIDE LEVEL 97 MEQ/L (98-107); CREATININE FOR GFR 0.33 MG/DL (0.55-1.30); GLOMERULAR FILTRATION RATE > 60.0 (>45); GLUCOSE, FASTING 91 MG/DL (70-100); POTASSIUM SERUM 3.3 MEQ/L (3.5-5.1); SODIUM LEVEL 135 MEQ/L (136-145)
[2018-07-15] MEDS: HumaLOG INSULIN (NovoLOG) PER UNIT SC SCH ×4 (07:30→21:00)
[2018-07-15] MEDS: BUDESONIDE 180MCG INHALER (PULMICORT FLEXHALER) INH SCH ×2 (07:58→21:08)
[2018-07-15] MEDS ORDERED: POTASSIUM CHLORIDE 10 MEQ SR TABLET PO ONE (08:00)
[2018-07-15] MEDS: MIRALAX *UNIT DOSE* 17GM PACKET PO SCH (09:00)
[2018-07-15] MEDS: CitaloPRAM (CeleXA) 10 MG TABLET PO SCH (09:29)
[2018-07-15] MEDS: SENOKOT S TAB PO SCH ×2 (09:29→21:27)
[2018-07-15] MEDS: ASPIRIN 81 MG ENTERIC TAB PO SCH (09:30)
[2018-07-15] MEDS: FLUDROCORTISONE ACETATE 0.1 MG TAB PO SCH (09:30)
[2018-07-15] MEDS: CLOPIDOGREL 75 MG TAB PO SCH (09:30)
[2018-07-15] MEDS: PANTOPRAZOLE 40MG TAB (PROTONIX) PO SCH (09:30)
[2018-07-15] MEDS: ATORVASTATIN 20 MG TAB PO SCH (09:30)
[2018-07-15] MEDS: THIAMINE 100 MG TAB PO SCH (09:30)
[2018-07-15] MEDS: FOLIC ACID 1 MG TAB PO SCH (09:31)
[2018-07-15] MEDS: ENOXAPARIN 30 MG/0.3 ML SYR (J1650) SC SCH (09:33)
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
[2018-07-15 14:39] VITALS: BP 90/70
[2018-07-15 22:00] VITALS: BP 106/56
[2018-07-16 02:00] VITALS: BP 100/56
[2018-07-16] MEDS: IPRATROPIUM 0.5MG/ALBUTEROL 2.5MG INH SOL UD 3ML (DUONEB)(J7620) NEB SCH ×4 (04:22→20:00)
[2018-07-16 06:00] VITALS: BP 140/65
[2018-07-16 06:38] LABS: BASO # 0.1 10^3/uL (0.0-0.2); BASO % 0.3 % (0.0-1.0); EOS # 0.1 10^3/uL (0.0-0.50); EOS % 0.6 % (0.0-3.0); HEMOGLOBIN 14.2 g/dl (12.0-15.5); LYMPH # 2.1 10^3/uL (1.5-4.5); LYMPH % 10.6 % (24.0-44.0); MEAN CORPUSCULAR VOLUME 90.9 fl (80.0-96.0); MONO # 1.1 10^3/uL (0.0-0.8); MONO % 5.8 % (0.0-5.0); NEUTROPHILS # 16.1 10^3/uL (1.8-7.7); NEUTROPHILS % 81.6 % (36.0-66.0); PLATELET COUNT, AUTOMATED 239 10^3/uL (150-450); RED BLOOD COUNT 4.73 10^6/uL (4.00-5.40); WHITE BLOOD COUNT 19.7 10^3/uL (4.0-10.0)
[2018-07-16] MEDS: LevoFLOXacin 750 MG TABLET PO SCH (06:55)
[2018-07-16 07:08] LABS: BLOOD UREA NITROGEN 14 MG/DL (7-18); CALCIUM LEVEL 8.1 MG/DL (8.8-10.2); CARBON DIOXIDE LEVEL 28 MEQ/L (21-32); CHLORIDE LEVEL 97 MEQ/L (98-107); CREATININE FOR GFR 0.36 MG/DL (0.55-1.30); GLOMERULAR FILTRATION RATE > 60.0 (>45); GLUCOSE, FASTING 93 MG/DL (70-100); POTASSIUM SERUM 3.6 MEQ/L (3.5-5.1); SODIUM LEVEL 134 MEQ/L (136-145)
[2018-07-16] MEDS: HumaLOG INSULIN (NovoLOG) PER UNIT SC SCH ×4 (07:30→20:54)
[2018-07-16] MEDS: BUDESONIDE 180MCG INHALER (PULMICORT FLEXHALER) INH SCH ×2 (08:44→22:11)
[2018-07-16] MEDS: MIRALAX *UNIT DOSE* 17GM PACKET PO SCH (10:20)
[2018-07-16] MEDS: ENOXAPARIN 30 MG/0.3 ML SYR (J1650) SC SCH (10:21)
[2018-07-16] MEDS: THIAMINE 100 MG TAB PO SCH (10:21)
[2018-07-16] MEDS: SENOKOT S TAB PO SCH ×2 (10:21→20:54)
[2018-07-16] MEDS: ATORVASTATIN 20 MG TAB PO SCH (10:21)
[2018-07-16] MEDS: ASPIRIN 81 MG ENTERIC TAB PO SCH (10:21)
[2018-07-16] MEDS: CitaloPRAM (CeleXA) 10 MG TABLET PO SCH (10:21)
[2018-07-16] MEDS: FOLIC ACID 1 MG TAB PO SCH (10:22)
[2018-07-16] MEDS: FLUDROCORTISONE ACETATE 0.1 MG TAB PO SCH (10:22)
[2018-07-16] MEDS: PANTOPRAZOLE 40MG TAB (PROTONIX) PO SCH (10:22)
[2018-07-16] MEDS: CLOPIDOGREL 75 MG TAB PO SCH (10:22)
--- NOTE | 2018-07-16 12:54 | IPNPDOC ---
Text Note Date of Service The patient was seen on 07/16/18. NOTE Subjective: Patient is a 62 year old female with a PMHx of HTN, CAD, NIDDM2, DLP, Hx of TIAs, COPD, Migraine Headaches, Schizophrenia / Psychosis who presented to the ER with complaints of progressive weakness and cough. Patient was found to have CAP and was admitted to the hospitalist service for further evaluation and treatment. Patient was seen and examined at the bedside. Patient denies any chest pain, shortness of breath or palpitations. He notes that her cough is very mild. Denied any abdominal pain, constipation, diarrhea or discomfort with urination. Denied nausea and vomiting. Objective: Vitals (See below) General: Lying in bed, no acute distress, comfortable, Awake / Alert, Oriented to Person/Place/Time HEENT: NC, AT CVS: RRR, +S1S2 Lungs: Fair air entry b/l, -w/r/r Abdomen: Soft, ND, NT Extremities: - Edema, - Calf tenderness Assessment and plan: Shortness of breath - likely 2/2 acute COPD exacerbation and community acquired pneumonia - Patient notes her breathing is doing better; lungs without any adventitious lung sounds s/p Acute COPD exacerbation - s/p Prednisone - c/w inhaled therapy as ordered Community acquired pneumonia - Respiratory panel 07/08: Negative - Blood cultures 07/07: No growth at 5 days; MRSA screen 07/10: Negative - CXR 07/10: New infiltrate left base laterally consistent with pneumonia. - c/w Levaquin (Antibiotic day #9) Leukocytosis - etiology unclear - ROS negative for other sources of infection - Afebrile - No significant elevation of CRP - Peripheral smear pending - s/p Prednisone - Repeat CXR / UA - c/w antibiotics as stated above Hyponatremia - likely 2/2 hypotonic isovolemic etiology Orthostatic Hypotension - c/w Fludrocortisone CAD - c/w ASA, Plavix and Atorvastatin DLP - c/w Atorvastatin NIDDM2 - c/w ISS Hx of TIAs - c/w ASA / Plavix / Atorvastatin Migraine Headache - c/w Tylenol PRN Tobacco dependence - Advised smoking cessation - Currently still wants to smoke Hx of alcohol abuse - c/w Thiamine and Folate - Will start Multivitamin Schizophrenia / Psychosis / Depression / Insomnia - c/w Citalopram and Ramelteon GERD - c/w Protonix DVT prophylaxis - c/w Lovenox Disposition: - Bety (Daughter / HCP): [phone] - Poor living conditions at home; PFS for placement options - c/w PT VS,Fishbone, I+O VS, Fishbone, I+O Laboratory Tests 07/16/18 05:47 Red Blood Count 4.73, Mean Corpuscular Volume 90.9, Mean Corpuscular Hemoglobin 30.0, Mean Corpuscular Hemoglobin Concent 33.0, Red Cell Distribution Width 14.0, Neutrophils (%) (Auto) 81.6 H, Lymphocytes (%) (Auto) 10.6 L, Monocytes (%) (Auto) 5.8 H, Eosinophils (%) (Auto) 0.6, Basophils (%) (Auto) 0.3, Neutrophils # (Auto) 16.1 H, Lymphocytes # (Auto) 2.1, Monocytes # (Auto) 1.1 H, Eosinophils # (Auto) 0.1, Basophils # (Auto) 0.1, Calcium Level 8.1 L Vital Signs Date Time Temp Pulse Resp B/P (MAP) Pulse Ox O2 Delivery O2 Flow Rate FiO2 07/16/18 06:00 97.6 97 20 140/65 (90) 96 07/12/18 06:00 Room Air 07/11/18 09:00 1.0 I&O- Last 24 Hours up to 6 AM 07/16/18 06:00 Intake Total 1320 ml Output Total 500 ml Balance 820 ml PHILLIP ALEJANDRO MD Jul 16, 2018 12:54
[2018-07-16 13:01] LABS: C REACTIVE PROTEIN QUANTITATIV 1.58 MG/DL (0.00-0.30)
[2018-07-16] MEDS: MULTIVITAMINS/MINERALS THERAP 1 TAB PO SCH (13:19)
--- NOTE | 2018-07-16 13:55 | REP ---
Clinical: Leukocytosis. Comparison: 07/10/2018. Findings: Mediastinum and cardiac silhouette are stable. [id number] with tip in the SVC. Lung garcia demonstrate diffuse chronic interstitial changes. Subtle medial right upper lobe infiltrate cannot be excluded. Impression: Chronic stable changes. Cannot exclude subtle medial right upper lobe infiltrate. Electronically Signed by Reji Dupree MD 07/16/2018 01:47 P
[2018-07-16 14:00] VITALS: BP 127/60
[2018-07-16 22:00] VITALS: BP 108/50
[2018-07-17] MEDS: IPRATROPIUM 0.5MG/ALBUTEROL 2.5MG INH SOL UD 3ML (DUONEB)(J7620) NEB SCH ×4 (02:10→19:33)
[2018-07-17] MEDS: LevoFLOXacin 750 MG TABLET PO SCH (05:03)
[2018-07-17 06:00] VITALS: BP 113/53
[2018-07-17] MEDS: BUDESONIDE 180MCG INHALER (PULMICORT FLEXHALER) INH SCH ×2 (08:17→19:33)
[2018-07-17 08:33] LABS: BASO # 0.1 10^3/uL (0.0-0.2); BASO % 0.3 % (0.0-1.0); EOS # 0.1 10^3/uL (0.0-0.50); EOS % 0.5 % (0.0-3.0); HEMATOCRIT 45.1 % (36.0-47.0); LYMPH # 1.9 10^3/uL (1.5-4.5); LYMPH % 10.6 % (24.0-44.0); MEAN CORPUSCULAR HEMOGLOBIN 30.2 pg (27.0-33.0); MEAN CORPUSCULAR HGB CONC 33.3 g/dl (32.0-36.5); MEAN CORPUSCULAR VOLUME 90.7 fl (80.0-96.0); MONO # 1.1 10^3/uL (0.0-0.8); MONO % 6.4 % (0.0-5.0); NEUTROPHILS # 14.2 10^3/uL (1.8-7.7); NEUTROPHILS % 81.2 % (36.0-66.0); PLATELET COUNT, AUTOMATED 245 10^3/uL (150-450); RED BLOOD COUNT 4.97 10^6/uL (4.00-5.40); WHITE BLOOD COUNT 17.5 10^3/uL (4.0-10.0)
[2018-07-17 09:05] LABS: ALBUMIN 2.9 GM/DL (3.2-5.2); ALT/SGPT 17 U/L (12-78); BILIRUBIN,TOTAL 1.3 MG/DL (0.2-1.0); BLOOD UREA NITROGEN 13 MG/DL (7-18); CALCIUM LEVEL 8.3 MG/DL (8.8-10.2); CARBON DIOXIDE LEVEL 28 MEQ/L (21-32); CHLORIDE LEVEL 97 MEQ/L (98-107); CREATININE FOR GFR 0.36 MG/DL (0.55-1.30); GLOMERULAR FILTRATION RATE > 60.0 (>45); GLUCOSE, FASTING 91 MG/DL (70-100); MAGNESIUM LEVEL 2.1 MG/DL (1.8-2.4); SODIUM LEVEL 133 MEQ/L (136-145); TOTAL PROTEIN 6.4 GM/DL (6.4-8.2)
[2018-07-17] MEDS: HumaLOG INSULIN (NovoLOG) PER UNIT SC SCH ×4 (09:05→21:00)
[2018-07-17] MEDS: SENOKOT S TAB PO SCH ×2 (09:14→22:25)
[2018-07-17] MEDS: FOLIC ACID 1 MG TAB PO SCH (09:14)
[2018-07-17] MEDS: PANTOPRAZOLE 40MG TAB (PROTONIX) PO SCH (09:14)
[2018-07-17] MEDS: CLOPIDOGREL 75 MG TAB PO SCH (09:14)
[2018-07-17] MEDS: ASPIRIN 81 MG ENTERIC TAB PO SCH (09:14)
[2018-07-17] MEDS: ENOXAPARIN 30 MG/0.3 ML SYR (J1650) SC SCH (09:14)
[2018-07-17] MEDS: MULTIVITAMINS/MINERALS THERAP 1 TAB PO SCH (09:14)
[2018-07-17] MEDS: MIRALAX *UNIT DOSE* 17GM PACKET PO SCH (09:14)
[2018-07-17] MEDS: FLUDROCORTISONE ACETATE 0.1 MG TAB PO SCH (09:14)
[2018-07-17] MEDS: CitaloPRAM (CeleXA) 10 MG TABLET PO SCH (09:14)
[2018-07-17] MEDS: THIAMINE 100 MG TAB PO SCH (09:14)
[2018-07-17] MEDS: ATORVASTATIN 20 MG TAB PO SCH (10:31)
[2018-07-17 14:00] VITALS: BP 80/52
--- NOTE | 2018-07-17 16:49 | IPNPDOC ---
Text Note Date of Service The patient was seen on 07/17/18. NOTE Subjective: Patient is a 62 year old female with a PMHx of HTN, CAD, NIDDM2, DLP, Hx of TIAs, COPD, Migraine Headaches, Schizophrenia / Psychosis who presented to the ER with complaints of progressive weakness and cough. Patient was found to have CAP and was admitted to the hospitalist service for further evaluation and treatment. Patient was seen and examined at the bedside. This morning she denies any CP, SOB or palpitations. Is anxious to get home. Denies any N/V, abdominal pain, C/D or dysuria. Objective: Vitals (See below) General: Lying in bed, no acute distress, comfortable, Awake / Alert, Oriented to Person/Place/Time HEENT: NC, AT CVS: RRR, +S1S2 Lungs: Fair air entry b/l, this does not reveal any wheezing, rhonchi or rales Abdomen: Soft, nondistended, without tenderness Extremities: No evidence of lower extremity edema, - Calf tenderness Assessment and plan: Shortness of breath - likely 2/2 acute COPD exacerbation and community acquired pneumonia - Patient notes her breathing is doing better; lungs without any adventitious lung sounds s/p Acute COPD exacerbation - s/p Prednisone - c/w inhaled therapy as ordered Community acquired pneumonia - Respiratory panel 07/08: Negative - Blood cultures 07/07: No growth at 5 days; MRSA screen 07/10: Negative - CXR 07/10: New infiltrate left base laterally consistent with pneumonia. - c/w Levaquin (Antibiotic day #10) Leukocytosis - etiology unclear - ROS negative for other sources of infection - Peripheral smear 07/14: Mild leukocytosis with neutrophilia, likely reactive. No blasts identified. Normocytic smear. - s/p Prednisone - CXR 07/16: Chronic stable changes. Cannot exclude subtle medial right upper lobe infiltrate. - Will get CT Chest - Will repeat CRP / Lactic acid - c/w antibiotics as stated above Hyponatremia - likely 2/2 hypotonic euvolemic etiology - Continues to improve Orthostatic Hypotension - c/w Fludrocortisone CAD - c/w ASA, Plavix and Atorvastatin DLP - c/w Atorvastatin NIDDM2 - c/w ISS Hx of TIAs - c/w ASA / Plavix / Atorvastatin Migraine Headache - c/w Tylenol PRN Tobacco dependence - Advised smoking cessation - Currently still wants to smoke Hx of alcohol abuse - c/w Thiamine / Folate / Multivitamin Schizophrenia / Psychosis / Depression / Insomnia - c/w Citalopram and Ramelteon GERD - c/w Protonix DVT prophylaxis - c/w Lovenox Disposition: - Bety (Daughter / HCP): [phone] - Poor living conditions at home; PFS for placement options - c/w PT VS,Fishbone, I+O VS, Fishbone, I+O Laboratory Tests 07/17/18 08:12 Red Blood Count 4.97, Mean Corpuscular Volume 90.7, Mean Corpuscular Hemoglobin 30.2, Mean Corpuscular Hemoglobin Concent 33.3, Red Cell Distribution Width 14.3, Neutrophils (%) (Auto) 81.2 H, Lymphocytes (%) (Auto) 10.6 L, Monocytes (%) (Auto) 6.4 H, Eosinophils (%) (Auto) 0.5, Basophils (%) (Auto) 0.3, Neutrophils # (Auto) 14.2 H, Lymphocytes # (Auto) 1.9, Monocytes # (Auto) 1.1 H, Eosinophils # (Auto) 0.1, Basophils # (Auto) 0.1, Calcium Level 8.3 L, Aspartate Amino Transf (AST/SGOT) 17, Alanine Aminotransferase (ALT/SGPT) 17, Alkaline Phosphatase 85, Total Bilirubin 1.3 H, Total Protein 6.4, Albumin 2.9 L Vital Signs Date Time Temp Pulse Resp B/P (MAP) Pulse Ox O2 Delivery O2 Flow Rate FiO2 07/17/18 14:00 98.2 88 20 80/52 (61) 96 07/12/18 06:00 Room Air 07/11/18 09:00 1.0 I&O- Last 24 Hours up to 6 AM 07/17/18 06:00 Intake Total 1380 ml Output Total 800 ml Balance 580 ml PHILLIP ALEJANDRO MD Jul 17, 2018 16:49
--- NOTE | 2018-07-17 20:49 | REP ---
CT CHEST WITHOUT IV CONTRAST: CT chest was performed without IV contrast and compared to prior PET CT 08/09/2017 and several prior chest radiographs since that time. There are patchy parenchyma opacities predominately in the right upper lobe which have mildly increased since prior CT scan. A few other patchy opacities are seen to a lesser extent in the right middle lobe and lower lobe. There is very mild streaky opacity in the left lower lobe along the diaphragm. The heart is not enlarged. No significant adenopathy is seen in the mediastinum. There is no pleural or pericardial effusion. There are atherosclerotic calcifications of the thoracic aorta without aneurysm. Small cyst is seen in the left lobe of the liver. Two left renal cysts are again seen. There are degenerative changes of the spine. IMPRESSION: Mild increase in patchy parenchymal opacities in the right upper lobe when compared to prior PET CT of 08/09/2017; comparing to chest radiographs these are probably also new since the chest radiograph of 02/19/2018. A few mild patchy opacities are seen in the right middle and lower lobes as well as left lower lobe. These may represent infiltrates and or fibro atelectatic change. Electronically Signed by Logan Murphy MD 07/19/2018 01:29 P
[2018-07-17 22:00] VITALS: BP 90/60
[2018-07-18] MEDS: IPRATROPIUM 0.5MG/ALBUTEROL 2.5MG INH SOL UD 3ML (DUONEB)(J7620) NEB SCH ×4 (00:44→20:36)
[2018-07-18] MEDS: LevoFLOXacin 750 MG TABLET PO SCH (05:14)
[2018-07-18 06:00] VITALS: BP 110/70
[2018-07-18 06:56] LABS: BASO # 0.1 10^3/uL (0.0-0.2); BASO % 0.6 % (0.0-1.0); EOS # 0.1 10^3/uL (0.0-0.50); EOS % 0.6 % (0.0-3.0); HEMATOCRIT 41.2 % (36.0-47.0); HEMOGLOBIN 13.7 g/dl (12.0-15.5); LYMPH # 1.8 10^3/uL (1.5-4.5); LYMPH % 11.5 % (24.0-44.0); MEAN CORPUSCULAR HEMOGLOBIN 30.2 pg (27.0-33.0); MEAN CORPUSCULAR HGB CONC 33.3 g/dl (32.0-36.5); MEAN CORPUSCULAR VOLUME 90.9 fl (80.0-96.0); MONO # 1.3 10^3/uL (0.0-0.8); MONO % 8.6 % (0.0-5.0); NEUTROPHILS # 12.1 10^3/uL (1.8-7.7); NEUTROPHILS % 77.7 % (36.0-66.0); PLATELET COUNT, AUTOMATED 253 10^3/uL (150-450); RED BLOOD COUNT 4.53 10^6/uL (4.00-5.40); WHITE BLOOD COUNT 15.5 10^3/uL (4.0-10.0)
[2018-07-18] MEDS: BUDESONIDE 180MCG INHALER (PULMICORT FLEXHALER) INH SCH ×2 (07:17→20:36)
[2018-07-18 07:18] LABS: ALBUMIN 2.7 GM/DL (3.2-5.2); ALT/SGPT 17 U/L (12-78); BILIRUBIN,TOTAL 0.6 MG/DL (0.2-1.0); BLOOD UREA NITROGEN 15 MG/DL (7-18); CALCIUM LEVEL 8.5 MG/DL (8.8-10.2); CARBON DIOXIDE LEVEL 30 MEQ/L (21-32); CHLORIDE LEVEL 99 MEQ/L (98-107); CREATININE FOR GFR 0.42 MG/DL (0.55-1.30); GLOMERULAR FILTRATION RATE > 60.0 (>45); GLUCOSE, FASTING 103 MG/DL (70-100); MAGNESIUM LEVEL 2.3 MG/DL (1.8-2.4); POTASSIUM SERUM 3.8 MEQ/L (3.5-5.1); SODIUM LEVEL 135 MEQ/L (136-145); TOTAL PROTEIN 6.5 GM/DL (6.4-8.2)
[2018-07-18] MEDS: HumaLOG INSULIN (NovoLOG) PER UNIT SC SCH ×4 (08:08→21:00)
[2018-07-18] MEDS: CLOPIDOGREL 75 MG TAB PO SCH (08:09)
[2018-07-18] MEDS: ENOXAPARIN 30 MG/0.3 ML SYR (J1650) SC SCH (08:09)
[2018-07-18] MEDS: THIAMINE 100 MG TAB PO SCH (08:09)
[2018-07-18] MEDS: SENOKOT S TAB PO SCH ×2 (08:09→22:24)
[2018-07-18] MEDS: FLUDROCORTISONE ACETATE 0.1 MG TAB PO SCH (08:10)
[2018-07-18] MEDS: MULTIVITAMINS/MINERALS THERAP 1 TAB PO SCH (08:11)
[2018-07-18] MEDS: PANTOPRAZOLE 40MG TAB (PROTONIX) PO SCH (08:11)
[2018-07-18] MEDS: ASPIRIN 81 MG ENTERIC TAB PO SCH (08:11)
[2018-07-18] MEDS: CitaloPRAM (CeleXA) 10 MG TABLET PO SCH (08:11)
[2018-07-18] MEDS: ATORVASTATIN 20 MG TAB PO SCH (08:11)
[2018-07-18] MEDS: FOLIC ACID 1 MG TAB PO SCH (08:12)
[2018-07-18] MEDS: MIRALAX *UNIT DOSE* 17GM PACKET PO SCH (08:24)
[2018-07-18 09:21] VITALS: BP 105/67
[2018-07-18 14:00] VITALS: BP 94/53
--- NOTE | 2018-07-18 15:20 | IPNPDOC ---
Text Note Date of Service The patient was seen on 07/18/18. NOTE Subjective: Patient is a 62 year old female with a PMHx of HTN, CAD, NIDDM2, DLP, Hx of TIAs, COPD, Migraine Headaches, Schizophrenia / Psychosis who presented to the ER with complaints of progressive weakness and cough. Patient was found to have CAP and was admitted to the hospitalist service for further evaluation and treatment. Patient was seen and examined at the bedside. Currently patient has no new complaints. Denies any chest pain, shortness of breath or palpitations. Denies nausea, vomiting, abdominal pain, cause patient, diarrhea or discomfort with urination. Objective: Vitals (See below) General: Lying in bed, no acute distress, comfortable, alert and oriented 3 HEENT: NC, AT CVS: RRR, +S1S2 Lungs: Fair air entry bilaterally without evidence of wheezing, rhonchi or rales Abdomen: Remains soft, nondistended without tenderness Extremities: - Calf tenderness, no evidence of LE edema Assessment and plan: Shortness of breath - likely 2/2 acute COPD exacerbation and community acquired pneumonia - Patient denies any chest pain, shortness of breath, palpitations or cough - Physical without any adventitious lung sounds s/p Acute COPD exacerbation - s/p Prednisone - c/w inhaled therapy as ordered Community acquired pneumonia - Respiratory panel 07/08: Negative - Blood cultures 07/07: No growth at 5 days; MRSA screen 07/10: Negative - CXR 07/10: New infiltrate left base laterally consistent with pneumonia. - c/w Levaquin (Antibiotic day #11) Leukocytosis - etiology unclear - ROS negative for other sources of infection - Peripheral smear 07/14: Mild leukocytosis with neutrophilia, likely reactive. No blasts identified. Normocytic smear. - Leukocytosis improving - No elevation of lactic acid, Will continue to trend CRP - CXR 07/16: Chronic stable changes. Cannot exclude subtle medial right upper lobe infiltrate. - CT chest 07/17: Mild increase in patchy parenchymal opacities in the right upper lobe when compared to prior PET CT of 08/09/2017 comparing to chest radiographs these are probably also new since the chest radiograph of 02/19/2018. A few mild patchy opacities are seen in the right middle and lower lobes as well as left lower lobe. These may represent infiltrates and or fibro atelectatic change. - s/p Prednisone - c/w antibiotics as stated above Hyponatremia - likely 2/2 hypotonic euvolemic etiology - Approaching nromal Orthostatic Hypotension - c/w Fludrocortisone CAD - c/w ASA, Plavix and Atorvastatin DLP - c/w Atorvastatin NIDDM2 - c/w ISS Hx of TIAs - c/w ASA / Plavix / Atorvastatin Migraine Headache - c/w Tylenol PRN Tobacco dependence - Advised smoking cessation - Currently still wants to smoke Hx of alcohol abuse - c/w Thiamine / Folate / Multivitamin Schizophrenia / Psychosis / Depression / Insomnia - c/w Citalopram and Ramelteon GERD - c/w Protonix DVT prophylaxis - c/w Lovenox Disposition: - Bety (Daughter / HCP): [phone] - Poor living conditions at home; PFS for placement options - c/w PT VS,Fishbone, I+O VS, Fishbone, I+O Laboratory Tests 07/18/18 06:31 Red Blood Count 4.53, Mean Corpuscular Volume 90.9, Mean Corpuscular Hemoglobin 30.2, Mean Corpuscular Hemoglobin Concent 33.3, Red Cell Distribution Width 14.4, Neutrophils (%) (Auto) 77.7 H, Lymphocytes (%) (Auto) 11.5 L, Monocytes (%) (Auto) 8.6 H, Eosinophils (%) (Auto) 0.6, Basophils (%) (Auto) 0.6, Neutrophils # (Auto) 12.1 H, Lymphocytes # (Auto) 1.8, Monocytes # (Auto) 1.3 H, Eosinophils # (Auto) 0.1, Basophils # (Auto) 0.1, Calcium Level 8.5 L, Aspartate Amino Transf (AST/SGOT) 12, Alanine Aminotransferase (ALT/SGPT) 17, Alkaline Phosphatase 99, Total Bilirubin 0.6 #, Total Protein 6.5, Albumin 2.7 L Vital Signs Date Time Temp Pulse Resp B/P (MAP) Pulse Ox O2 Delivery O2 Flow Rate FiO2 07/18/18 09:21 101 105/67 (80) 07/18/18 06:00 99.3 18 92 07/12/18 06:00 Room Air I&O- Last 24 Hours up to 6 AM 07/18/18 06:00 Intake Total 1440 ml Output Total 0 ml Balance 1440 ml ALEJANDRO,VIJESH MD Jul 18, 2018 15:20
--- NOTE | 2018-07-18 20:00 | ECHO ---
DATE OF PROCEDURE: 07/18/2018 REFERRING PHYSICIAN: Dr. Norma Mariee INDICATION: Cardiac murmur, unspecified. HEIGHT: 157 cm WEIGHT: 45 kg 2D MEASUREMENTS: Ventricular septum: 1.02 cm Posterior wall: 0.98 cm Left ventricle diastole: 4.1 cm Aortic root: 3.5 cm Left atrium: 3.3 cm Aortic annulus: 2.0 cm Inferior vena cava: 1.6 cm with more than 50% respiratory variation. Central venous pressure estimated to be 5-10 mmHg. DOPPLER MEASUREMENTS: Aortic valve velocity: 102 cm/s LVOT velocity: 111 cm/s LVOT VTI: 22.8 cm No aortic regurgitation. No mitral regurgitation. No mitral stenosis. Mitral E velocity: 99.4 cm/s Mitral A velocity: 84.9 cm/s Mitral deceleration time: 148 ms No tricuspid regurgitation. No pulmonic regurgitation. Pulmonary artery systolic pressure estimated to be 27 mmHg. MITRAL ANNULAR TISSUE DOPPLER: E prime lateral: 7.5 cm/s E prime septal: 10.3 cm/s DESCRIPTION: Rhythm was sinus. Image quality was fair. No pericardial effusion. This was a 2D, M-mode, color flow Doppler and pulse wave Doppler examination and included mitral annular tissue Doppler. CONCLUSIONS: 1. Normal left ventricle internal dimensions and wall thickness. Normal regional left ventricular (LV) wall motion and wall thickening. Normal LV systolic function. Left ventricular ejection fraction (LVEF) 70%. Normal LV diastolic function. 2. Mild-moderate mitral annular calcification. No mitral stenosis. No mitral regurgitation. 3. Otherwise normal appearing echocardiogram Doppler findings.
[2018-07-18 22:00] VITALS: BP 96/64
[2018-07-18] MEDS: RAMELTEON 8 MG TAB (ROZEREM) PO PRN (22:23)
[2018-07-19] MEDS: IPRATROPIUM 0.5MG/ALBUTEROL 2.5MG INH SOL UD 3ML (DUONEB)(J7620) NEB SCH ×2 (00:18→08:32)
[2018-07-19 06:00] VITALS: BP 90/57
[2018-07-19] MEDS: LevoFLOXacin 750 MG TABLET PO SCH (06:05)
[2018-07-19 06:37] LABS: BASO # 0.1 10^3/uL (0.0-0.2); BASO % 0.6 % (0.0-1.0); EOS # 0.1 10^3/uL (0.0-0.50); EOS % 0.8 % (0.0-3.0); HEMATOCRIT 39.6 % (36.0-47.0); LYMPH # 2.1 10^3/uL (1.5-4.5); LYMPH % 13.4 % (24.0-44.0); MEAN CORPUSCULAR HEMOGLOBIN 30.4 pg (27.0-33.0); MEAN CORPUSCULAR HGB CONC 32.8 g/dl (32.0-36.5); MEAN CORPUSCULAR VOLUME 92.5 fl (80.0-96.0); MONO # 1.5 10^3/uL (0.0-0.8); MONO % 9.4 % (0.0-5.0); NEUTROPHILS # 11.5 10^3/uL (1.8-7.7); PLATELET COUNT, AUTOMATED 246 10^3/uL (150-450); RED BLOOD COUNT 4.28 10^6/uL (4.00-5.40); WHITE BLOOD COUNT 15.4 10^3/uL (4.0-10.0)
[2018-07-19 07:01] LABS: ALBUMIN 2.6 GM/DL (3.2-5.2); ALT/SGPT 16 U/L (12-78); BILIRUBIN,TOTAL 0.6 MG/DL (0.2-1.0); BLOOD UREA NITROGEN 14 MG/DL (7-18); CALCIUM LEVEL 8.2 MG/DL (8.8-10.2); CARBON DIOXIDE LEVEL 31 MEQ/L (21-32); CHLORIDE LEVEL 98 MEQ/L (98-107); CREATININE FOR GFR 0.42 MG/DL (0.55-1.30); GLOMERULAR FILTRATION RATE > 60.0 (>45); GLUCOSE, FASTING 99 MG/DL (70-100); POTASSIUM SERUM 3.6 MEQ/L (3.5-5.1); SODIUM LEVEL 134 MEQ/L (136-145); TOTAL PROTEIN 6.4 GM/DL (6.4-8.2)
[2018-07-19] MEDS: HumaLOG INSULIN (NovoLOG) PER UNIT SC SCH ×2 (07:30→12:00)
[2018-07-19] MEDS ORDERED: SODIUM CHLORIDE 0.9% 1000ML IV ONE (08:00)
[2018-07-19 08:02] VITALS: BP 87/57
[2018-07-19] MEDS: ENOXAPARIN 30 MG/0.3 ML SYR (J1650) SC SCH (08:19)
[2018-07-19] MEDS: ASPIRIN 81 MG ENTERIC TAB PO SCH (08:20)
[2018-07-19] MEDS: BUDESONIDE 180MCG INHALER (PULMICORT FLEXHALER) INH SCH (08:20)
[2018-07-19] MEDS: PANTOPRAZOLE 40MG TAB (PROTONIX) PO SCH (08:20)
[2018-07-19] MEDS: ATORVASTATIN 20 MG TAB PO SCH (08:20)
[2018-07-19] MEDS: CLOPIDOGREL 75 MG TAB PO SCH (08:20)
[2018-07-19] MEDS: FLUDROCORTISONE ACETATE 0.1 MG TAB PO SCH (08:20)
[2018-07-19] MEDS: MULTIVITAMINS/MINERALS THERAP 1 TAB PO SCH (08:20)
[2018-07-19] MEDS: CitaloPRAM (CeleXA) 10 MG TABLET PO SCH (08:20)
[2018-07-19] MEDS: FOLIC ACID 1 MG TAB PO SCH (08:20)
[2018-07-19] MEDS: THIAMINE 100 MG TAB PO SCH (08:20)
[2018-07-19] MEDS: SENOKOT S TAB PO SCH (08:21)
[2018-07-19] MEDS: MIRALAX *UNIT DOSE* 17GM PACKET PO SCH (08:21)
[2018-07-19 10:46] VITALS: BP 107/64
[2018-07-19] MEDS ORDERED: LEVA750T7 PO (10:48)
[2018-07-19] MEDS ORDERED: BUDE180INH INH (10:50)
--- NOTE | 2018-07-19 13:55 | DS.PDOC ---
Discharge Summary General Date of Admission Jul 07, 2018 at 21:08 Date of Discharge 07/19/2018 Discharge Summary PROCEDURES PERFORMED DURING STAY: [None]. ADMITTING DIAGNOSES / DISCHARGE DIAGNOSES: Shortness of breath - likely 2/2 acute COPD exacerbation and community acquired pneumonia Leukocytosis - etiology unclear Hyponatremia - likely 2/2 hypotonic euvolemic etiology Orthostatic Hypotension CAD DLP NIDDM2 Hx of TIAs Migraine Headache Tobacco dependence Hx of alcohol abuse Schizophrenia / Psychosis / Depression / Insomnia GERD DVT prophylaxis COMPLICATIONS/CHIEF COMPLAINT: Weakness / Cough HISTORY OF PRESENT ILLNESS: Patient is a 62 year old female with a PMHx of HTN, CAD, NIDDM2, DLP, Hx of TIAs, COPD, Migraine Headaches, Schizophrenia / Psychosis who presented to the ER with complaints of progressive weakness and cough. Patient was found to have CAP and was admitted to the hospitalist service for further evaluation and treatment. HOSPITAL COURSE: Shortness of breath - likely 2/2 acute COPD exacerbation and community acquired pneumonia - Patient denies any chest pain, shortness of breath, palpitations or cough - Physical without any adventitious lung sounds s/p Acute COPD exacerbation - s/p Prednisone - c/w inhaled therapy as ordered Community acquired pneumonia - Respiratory panel 07/08: Negative - Blood cultures 07/07: No growth at 5 days; MRSA screen 07/10: Negative - CXR 07/10: New infiltrate left base laterally consistent with pneumonia. - c/w Levaquin; will complete antibiotic course as outpatient Leukocytosis - etiology unclear - No new sources of infection on ROS - Peripheral smear 07/14: Mild leukocytosis with neutrophilia, likely reactive. No blasts identified. Normocytic smear. - Leukocytosis improving; CRP trending down - No elevation of lactic acid, - CXR 07/16: Chronic stable changes. Cannot exclude subtle medial right upper lobe infiltrate. - CT chest 07/17: Mild increase in patchy parenchymal opacities in the right upper lobe when compared to prior PET CT of 08/09/2017 comparing to chest radiographs these are probably also new since the chest radiograph of 02/19/2018. A few mild patchy opacities are seen in the right middle and lower lobes as well as left lower lobe. These may represent infiltrates and or fibro atelectatic change. - s/p Prednisone - c/w antibiotics as stated above Hyponatremia - likely 2/2 hypotonic euvolemic etiology - Has improved significantly Orthostatic Hypotension - c/w Fludrocortisone CAD - c/w ASA, Plavix and Atorvastatin DLP - c/w Atorvastatin NIDDM2 - c/w ISS Hx of TIAs - c/w ASA / Plavix / Atorvastatin Migraine Headache - c/w Tylenol PRN Tobacco dependence - Advised smoking cessation - Currently still wants to smoke Hx of alcohol abuse - c/w Thiamine / Folate / Multivitamin Schizophrenia / Psychosis / Depression / Insomnia - c/w Citalopram and Ramelteon GERD - c/w Protonix DVT prophylaxis - c/w Lovenox DISCHARGE MEDICATIONS: Please see below. ALLERGIES: Please see below. PHYSICAL EXAMINATION ON DISCHARGE: Vitals (See below) General: Lying in bed, no acute distress, comfortable, alert and oriented 3 HEENT: NC, AT CVS: RRR, +S1S2 Lungs: Fair air entry bilaterally without evidence of wheezing, rhonchi or rales Abdomen: Remains soft, nondistended without tenderness Extremities: - Calf tenderness, no evidence of LE edema LABORATORY DATA: Please see below. ACTIVITY: [As tolerated]. DISCHARGE PLAN: Follow up with Dr. Sami Zafar within the next 7 days Remain compliant with treatment plan and medications Return to the ER if you experience any problems DISPOSITION: Will follow up with DSS; discussed with PFS / Case management Family agreeable to plan of care DISCHARGE CONDITION: [Stable]. TIME SPENT ON DISCHARGE: Greater than [35] minutes. Vital Signs/I&Os Vital Signs Date Time Temp Pulse Resp B/P (MAP) Pulse Ox O2 Delivery O2 Flow Rate FiO2 07/19/18 10:46 87 107/64 (78) 07/19/18 08:02 94 07/19/18 06:00 97.7 18 I&O- Last 24 Hours up to 6 AM 07/19/18 06:00 Intake Total 2280 ml Balance 2280 ml Laboratory Data Labs 24H Laboratory Tests 2 07/18/18 16:59: Bedside Glucose (Misc Panel) 134H 07/18/18 20:49: Bedside Glucose (Misc Panel) 123H 07/19/18 06:08: Immature Granulocyte % (Auto) 0.8, White Blood Count 15.4H, Red Blood Count 4.28, Hemoglobin 13.0, Hematocrit 39.6, Mean Corpuscular Volume 92.5, Mean Corpuscular Hemoglobin 30.4, Mean Corpuscular Hemoglobin Concent 32.8, Red Cell Distribution Width 14.3, Platelet Count 246, Neutrophils (%) (Auto) 75.0H, Lymphocytes (%) (Auto) 13.4L, Monocytes (%) (Auto) 9.4H, Eosinophils (%) (Auto) 0.8, Basophils (%) (Auto) 0.6, Neutrophils # (Auto) 11.5H, Lymphocytes # (Auto) 2.1, Monocytes # (Auto) 1.5H, Eosinophils # (Auto) 0.1, Basophils # (Auto) 0.1, Nucleated Red Blood Cells % (auto) 0.0, Anion Gap 5L, Glomerular Filtration Rate > 60.0, Blood Urea Nitrogen 14, Creatinine 0.42L, Sodium Level 134L, Potassium Level 3.6, Chloride Level 98, Carbon Dioxide Level 31, Calcium Level 8.2L, Aspartate Amino Transf (AST/SGOT) 11, Alanine Aminotransferase (ALT/SGPT) 16, Alkaline Phosphatase 101, Total Bilirubin 0.6, Total Protein 6.4, Albumin 2.6L, Magnesium Level 2.0, C-Reactive Protein, Quantitative 2.90H, Albumin/Globulin Ratio 0.68L 07/19/18 11:17: Bedside Glucose (Misc Panel) 94 CBC/BMP Laboratory Tests 07/19/18 06:08 Red Blood Count 4.28, Mean Corpuscular Volume 92.5, Mean Corpuscular Hemoglobin 30.4, Mean Corpuscular Hemoglobin Concent 32.8, Red Cell Distribution Width 14.3, Neutrophils (%) (Auto) 75.0 H, Lymphocytes (%) (Auto) 13.4 L, Monocytes (%) (Auto) 9.4 H, Eosinophils (%) (Auto) 0.8, Basophils (%) (Auto) 0.6, Ne utrophils # (Auto) 11.5 H, Lymphocytes # (Auto) 2.1, Monocytes # (Auto) 1.5 H, Eosinophils # (Auto) 0.1, Basophils # (Auto) 0.1, Calcium Level 8.2 L, Aspartate Amino Transf (AST/SGOT) 11, Alanine Aminotransferase (ALT/SGPT) 16, Alkaline Phosphatase 101, Total Bilirubin 0.6, Total Protein 6.4, Albumin 2.6 L FSBS Laboratory Tests Test 07/18/18 16:59 07/18/18 20:49 07/19/18 11:17 Range/Units Bedside Glucose (Misc Panel) 134 123 94 80-115 MG/DL Microbiology Microbiology 07/10/18 MRSA Screen - Final, Complete Discharge Medications Scheduled Aspirin (Aspirin 81) 81 Mg Tab, 81 MG PO DAILY, (Reported) Atorvastatin Calcium (Atorvastatin Calcium) 80 Mg Tab, 80 MG PO DAILY, (Reported) Budesonide (Pulmicort Flexhaler) 120 Puff/Inhaler Aerp, 2 PUFF INH BID Citalopram Hydrobromide (Citalopram) 10 Mg Tab, 10 MG PO DAILY, (Reported) Clopidogrel Bisulfate (Clopidogrel) 75 Mg Tab, 75 MG PO DAILY, (Reported) Fludrocortisone Acetate (Fludrocortisone Acetate) 0.1 Mg Tab, 0.1 MG PO DAILY, (Reported) Folic Acid (Folic Acid) 1 Mg Tab, 1 MG PO DAILY, (Reported) Levofloxacin Hemihydrate (Levaquin) 750 Mg Tab, 750 MG PO DAILY@06 Metformin Hydrochloride (Metformin HCl ER) 500 Mg Tab, 500 MG PO QPM, (Reported) TAKES WITH EVENING MEAL. Multivitamins *[facility] STOCKED* (Thera M Plus *[facility] STOCKED*) 1 Tab Tab, 1 TAB PO DAILY, (Reported) Thiamine Hcl (Thiamine Hcl) 100 Mg Tab, 100 MG PO DAILY, (Reported) Scheduled PRN Albuterol Sulfate (Ventolin Hfa) 108 Mcg/Act Aer, 2 PUFF INH Q4H PRN for SHORTNESS OF BREATH, (Reported) Allergies Coded Allergies: No Known Allergies (Unverified , 07/07/18) PHILLIP ALEJANDRO MD Jul 19, 2018 13:55
== END 2018-07-19 13:35 | disposition home or self-care (01) | DRG 140 ==
LOC: EDBD 17:14 → M ED 17:14 → M ED INP 21:08 → M MS5PR 23:20
PROVIDERS: ADMIT Hospitalist; ATTEND Internal Medicine
DX: J44.1 Chronic obstructive pulmonary disease with (acute) exacerbation (principal); J18.9 Pneumonia, unspecified organism; E87.2 Acidosis; E87.1 Hypo-osmolality and hyponatremia; F20.9 Schizophrenia, unspecified; I10 Essential (primary) hypertension; R06.03 Acute respiratory distress; E87.6 Hypokalemia; J44.0 Chronic obstructive pulmonary disease with (acute) lower respiratory infection; F17.210 Nicotine dependence, cigarettes, uncomplicated; G47.00 Insomnia, unspecified; R53.1 Weakness; E78.5 Hyperlipidemia, unspecified; G43.909 Migraine, unspecified, not intractable, without status migrainosus; I95.1 Orthostatic hypotension; Z86.73 Personal history of transient ischemic attack (TIA), and cerebral infarction without residual deficits; Z85.118 Personal history of other malignant neoplasm of bronchus and lung; Z92.21 Personal history of antineoplastic chemotherapy; Z79.82 Long term (current) use of aspirin; Z79.02 Long term (current) use of antithrombotics/antiplatelets; Z79.84 Long term (current) use of oral hypoglycemic drugs; Z79.899 Other long term (current) drug therapy

== ENCOUNTER 2018-10-21 15:05 | Inpatient (IN) | payer MEDICAID, OTHER, SELFPAY ==
[2018-10-21] VITALS (10 sets, daily range): BP systolic 64–115; BP diastolic 37–83
[~2018-10-21] VITALS: Ht 170.2 cm; Wt 42.2 kg
[~2018-10-21 15:05] MED LIST changes: +ARIP1TAB4 PO; -ARIP2TAB PO; +ASPI-164; -ASPI1TAB PO; +ASPI81TA26 PO; +BUDE180INH INH; +CITA10TA6 PO; -CITA20TA4 PO; +CITA20TA6 PO; +CitaloPRAM (CeleXA) 10 MG TABLET PO SCH; +FLUDROCORTISONE ACETATE 0.1 MG TAB PO SCH; +LEVA750T7 PO; +METF500T4 PO; -SM A1TAB
[2018-10-21] MEDS ORDERED: NS 1,000 ML IV ONE ×2 (15:45→16:45)
--- NOTE | 2018-10-21 16:06 | REP ---
CT study of the cervical spine without contrast: History: Injury in a fall. Head and neck injury. Technique: Helical scanning is acquired and overlapping 2 mm high resolution axial images were generated and reviewed at bone and soft tissue window settings. Coronal and sagittal multiplanar re-formations images are generated. CT findings: There is no evidence of cervical spine element fracture. No skull base fracture is seen. Cervical vertebral body heights are preserved. Alignment is normal. Facet joints are normally aligned bilaterally at each cervical level on multiplanar re-formations images. There is no evidence of intraspinal or paraspinal hematoma. No extra vertebral abnormality is seen. There are fairly advanced degenerative spondylosis changes. These include bridging osteophytes across the anterior margins of the C6 through T1 vertebral body. Osteoarthritic facet disease is noted in the mid cervical spine right more so than left. Vascular calcification is noted in the course of the carotid arteries bilaterally. Impression: Degenerative spondylosis changes and vascular calcification. Otherwise negative CT study of the cervical spine without contrast. No fracture seen. Electronically Signed by Jefry Chau MD 10/21/2018 03:57 P
[2018-10-21 16:10] LABS: BASO # 0.1 10^3/uL (0.0-0.2); BASO % 0.3 % (0.0-1.0); EOS % 0.1 % (0.0-3.0); HEMATOCRIT 44.8 % (36.0-47.0); HEMOGLOBIN 15.9 g/dl (12.0-15.5); LYMPH # 1.4 10^3/uL (1.5-4.5); LYMPH % 8.1 % (24.0-44.0); MEAN CORPUSCULAR HEMOGLOBIN 31.5 pg (27.0-33.0); MEAN CORPUSCULAR HGB CONC 35.5 g/dl (32.0-36.5); MEAN CORPUSCULAR VOLUME 88.7 fl (80.0-96.0); MONO # 1.3 10^3/uL (0.0-0.8); MONO % 7.3 % (0.0-5.0); NEUTROPHILS # 14.7 10^3/uL (1.8-7.7); NEUTROPHILS % 83.8 % (36.0-66.0); PLATELET COUNT, AUTOMATED 180 10^3/uL (150-450); RED BLOOD COUNT 5.05 10^6/uL (4.00-5.40); WHITE BLOOD COUNT 17.5 10^3/uL (4.0-10.0)
[2018-10-21 16:18] LABS: VENOUS BASE EXCESS -2.6 (-2.0-2.0); VENOUS HCO3 24.3 MEQ/L (23.0-27.0); VENOUS PARTIAL PRESSURE CO2 49.4 mmHg (38.0-50.0); VENOUS PARTIAL PRESSURE O2 34.8 mmHg (30.0-50.0); VENOUS PH 7.309 UNITS (7.330-7.430); VENOUS STANDARD HCO3 21.4 MEQ/L; VENOUS TOTAL CO2 25.8 MEQ/L (24.0-28.0)
[2018-10-21 16:32] LABS: ALT/SGPT 22 U/L (12-78); BILIRUBIN,DIRECT 0.4 MG/DL (0.0-0.2); BILIRUBIN,TOTAL 1.2 MG/DL (0.2-1.0); BLOOD UREA NITROGEN 7 MG/DL (7-18); CALCIUM LEVEL 7.4 MG/DL (8.8-10.2); CARBON DIOXIDE LEVEL 25 MEQ/L (21-32); CHLORIDE LEVEL 77 MEQ/L (98-107); CPK CREATINE PHOSPHOKINASE 848 U/L (26-192); CREATININE FOR GFR 0.48 MG/DL (0.55-1.30); ETHYL ALCOHOL (ETHANOL) 0.133 % (0.000-0.010); GLOMERULAR FILTRATION RATE > 60.0 (>45); GLUCOSE, FASTING 117 MG/DL (70-100); MB/CK RELATIVE INDEX 0.84 (< OR =4); OSMOLALITY SERUM 270 MOSM/KG (280-301); POTASSIUM SERUM 4.3 MEQ/L (3.5-5.1); SODIUM LEVEL 116 MEQ/L (136-145); TOTAL PROTEIN 6.3 GM/DL (6.4-8.2); TROPONIN I < 0.02 NG/ML (< 0.10)
[2018-10-21] MEDS ORDERED: BUDE180INH INH (16:44)
[2018-10-21] MEDS ORDERED: PATIENT COMMENT (16:47)
[2018-10-21] MEDS ORDERED: ISOVUE-370 76% 100ML VIAL (Q9967) As Ordered ONE (16:54)
[2018-10-21 16:59] LABS: GLUCOSE, URINE (UA) MANUAL NEGATIVE (NEGATIVE); KETONE, URINE MANUAL NEGATIVE (NEGATIVE)
[2018-10-21 17:00] LABS: AMPHETAMINES LEVEL URINE NEGATIVE (NEGATIVE); BARBITURATES URINE NEGATIVE (NEGATIVE); BENZODIAZEPINES URINE NEGATIVE (NEGATIVE); BILIRUBIN, URINE MANUAL NEGATIVE (NEGATIVE); CANNABINOIDS URINE NEGATIVE (NEGATIVE); COCAINE METABOLITE URINE NEGATIVE (NEGATIVE); METHADONE URINE NEGATIVE (NEGATIVE); OPIATES URINE NEGATIVE (NEGATIVE); PHENCYCLIDINE URINE NEGATIVE (NEGATIVE); UROBILINOGEN, URINE MANUAL NORMAL (NORMAL)
--- NOTE | 2018-10-21 17:21 | ECGEPIP ---
Stationary ECG Study [facility] - ED Test Date: 2018-10-21 Pat Name: DOMINIK COLVIN Department: Room: - Gender: F Prime Minister: YANETH : [id number] Requested By: GRACE Workman Order Number: [id number] Reading MD: Mukesh Sigala Measurements Intervals [place] Rate: 113 P: 72 OK: 133 QRS: 61 QRSD: 69 T: 62 QT: 351 QTc: 482 Interpretive Statements SINUS TACHYCARDIA POSSIBLE RIGHT ATRIAL ENLARGEMENT LEFT ATRIAL ENLARGEMENT SEPTAL MYOCARDIAL INFARCTION, OF INDETERMINATE AGE BASELINE ARTIFACT AFFECTS INTERPRETATION RATE CHANGE COMPARED TO 07/07/18 Electronically Signed On 10-21-2018 17:21:33 EDT by Mukesh Sigala
[2018-10-21] MEDS ORDERED: NS 0.45% 1,000 ML IV ONE ×2 (17:45→18:00)
[2018-10-21] MEDS: HumaLOG INSULIN (NovoLOG) PER UNIT SC SCH ×2 (18:00→23:32)
[2018-10-21] MEDS ORDERED: IPRATROPIUM 0.5MG/ALBUTEROL 2.5MG INH SOL UD 3ML (DUONEB)(J7620) NEB PRN (18:15)
[2018-10-21] MEDS ORDERED: HYDROCORTISONE 100 MG/2 ML VIAL (J1720) IV ONE (18:15)
[2018-10-21] MEDS ORDERED: PIPERACILLIN/TAZOBACTAM SOD 3.375 GM in D5W MINI-BAG PLUS 50 ML IV ONE (18:15)
[2018-10-21] MEDS ORDERED: LORazepam 2 MG/ML VIAL (J2060) IV PRN (18:30)
[2018-10-21] MEDS ORDERED: NICOTINE 14 MG/24 HR TRANSDERMAL TD ONE (18:30)
[2018-10-21] MEDS ORDERED: GLUCOSE 4 GM CHEW TABLET PO PRN (18:30)
[2018-10-21] MEDS ORDERED: GLUCAGON FOR INJ 1 MG VIAL (J1610) SC PRN (18:30)
[2018-10-21] MEDS ORDERED: MAG SULF 1GM/100ML (MAG RUN) 1 GM in APPROPRIATE DILUENT 1 EA IV ONE ×2 (18:30→20:15)
[2018-10-21] MEDS ORDERED: DEXTROSE 50% 50 ML SYRINGE IV PRN (18:30)
[2018-10-21] MEDS: NS 0.45% 1,000 ML IV SCH (18:45)
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
[2018-10-21 18:56] LABS: ALBUMIN 2.4 GM/DL (3.2-5.2); ALT/SGPT 20 U/L (12-78); BLOOD UREA NITROGEN 4 MG/DL (7-18); CALCIUM LEVEL 6.5 MG/DL (8.8-10.2); CARBON DIOXIDE LEVEL 26 MEQ/L (21-32); CHLORIDE LEVEL 90 MEQ/L (98-107); CREATININE FOR GFR 0.27 MG/DL (0.55-1.30); GLOMERULAR FILTRATION RATE > 60.0 (>45); GLUCOSE, FASTING 65 MG/DL (70-100); MAGNESIUM LEVEL 1.7 MG/DL (1.8-2.4); POTASSIUM SERUM 3.8 MEQ/L (3.5-5.1); SODIUM LEVEL 125 MEQ/L (136-145); TOTAL PROTEIN 5.2 GM/DL (6.4-8.2)
[2018-10-21] MEDS ORDERED: VANCOMYCIN HCL 1,000 MG, VIAL MATE ADAPTER 1 EACH in D5W 250 ML IV ONE (19:30)
--- NOTE | 2018-10-21 19:43 | REP ---
Portable chest x-ray: Single view. History: Status post central line placement. Comparison study is from 03:48 p.m. on this date. Findings: A left-sided Djgswu-R-Auso catheter remains in place. A right subclavian line has been inserted and its tip is seen in the expected location of the superior vena cava. There is no evidence of pneumothorax. There is a skin fold projecting along the right lateral chest wall. There is some soft tissue emphysema in the supraclavicular soft tissues on the right. Right paratracheal streaky fibrotic a density persists unchanged. Impression: Left subclavian Xvrarm-O-Micn and the right subclavian central venous lines are visible terminating in the expected location of the superior vena cava. No pneumothorax seen. Electronically Signed by Jefry Chau MD 10/21/2018 07:35 P
[2018-10-21] MEDS ORDERED: NS 500 ML IV ONE (20:00)
[2018-10-21] MEDS: HEPARIN SOD (PORCINE) 5000 UNITS/ML VIAL SQ SCH (20:26)
--- NOTE | 2018-10-21 20:27 | IPNPDOC ---
Text Note Date of Service The patient was seen on 10/21/18. NOTE Was notified by nursing that patient still has hyponatremia since admission and that her BP was 70s/50s on the maintenance fluid. 500ml NS bolus only ordered as pt's Na has already increased by 9 in 2.5 hours at 1805. Goal to not increase Na more than 12 increase in 24 hours. Discussed with attending and pt is likely d/t adrenal crisis and pt reported she missed taking her home med fludrocortisone yesterday.Pt will be reciving home med fludrocortisone now. Cont to f/u BP and BMP VS,Fishbone, I+O VS, Fishbone, I+O Laboratory Tests 10/21/18 15:27 10/21/18 16:03 Red Blood Count 5.05, Mean Corpuscular Volume 88.7, Mean Corpuscular Hemoglobin 31.5, Mean Corpuscular Hemoglobin Concent 35.5, Red Cell Distribution Width 14.1, Neutrophils (%) (Auto) 83.8 H, Lymphocytes (%) (Auto) 8.1 L, Monocytes (%) (Auto) 7.3 H, Eosinophils (%) (Auto) 0.1, Basophils (%) (Auto) 0.3, Neutrophils # (Auto) 14.7 H, Lymphocytes # (Auto) 1.4 L, Monocytes # (Auto) 1.3 H, Eosinophils # (Auto) 0.0, Basophils # (Auto) 0.1 10/21/18 18:05 Calcium Level 6.5 L, Aspartate Amino Transf (AST/SGOT) 43 H, Alanine Aminotransferase (ALT/SGPT) 20, Alkaline Phosphatase 93, Total Bilirubin 1.0, Total Protein 5.2 L, Albumin 2.4 L Vital Signs Date Time Temp Pulse Resp B/P (MAP) Pulse Ox O2 Delivery O2 Flow Rate FiO2 10/21/18 18:46 99.1 112 22 76/52 (60) 93 Nasal Cannula 2.0 RICARDO FANG DO October 21, 2018 20:27
[2018-10-21] MEDS: FOLIC ACID 1 MG TAB PO SCH (20:34)
[2018-10-21] MEDS: CLOPIDOGREL 75 MG TAB PO SCH (20:34)
[2018-10-21] MEDS: ATORVASTATIN 20 MG TAB PO SCH (20:34)
[2018-10-21] MEDS ORDERED: CALCIUM CARBONATE 500 MG CHEW U/D PO ONE (20:45)
--- NOTE | 2018-10-21 21:11 | PHACANCOPD ---
PHARMACY VANCOMYCIN DOSING Pt Demographics Demographics Patient Age:62 , Weight:43.600 , Gender: female Adjusted Body Weight Date: 10/21/18, Adjusted Body Weight: Kg Events Past 24 Hours Events Past 24 Hours: NO: Dialysis, Diuretic Therapy, Change in CrCl, Fever, Elevation in WBC, Pending Diagnostics, Pending Procedures, Other Vancomycin Vancomycin Target Ranges: 10-20 mcg/ml Vancomycin Load Y/N: Yes Load Dose Date Time Vancomycin Load Dose: 1000mg Date: 10-21 Time: 2100 Vancomycin Dose Date: 10/21/18. Current Vancomycin Dose: Intermittent Dosing?: No Labs Labs Item Value Date Time White Blood Count 17.5 10^3/uL H 10/21/18 1603 Glomerular Filtration Rate > 60.0 10/21/18 1805 Creatinine 0.27 MG/DL L 10/21/18 1805 Blood Urea Nitrogen 4 MG/DL L 10/21/18 1805 Vital Signs Label Value Date Time Patient Temperature 99.1 degrees F 10/21/18 1846 Temperature Source Urinary Catheter 10/21/18 1846 Micro Microbiology 10/21/18 Blood Culture, Received Pending 10/21/18 Blood Culture, Received Pending 10/21/18 Blood Culture, Received Pending Creatinine Clearance Date:10/21/18. Creatinine Clearance: [calculated at 226 but is not accurate due to inactivity and low body mass.]. Pending Labs Trough - @1999 Assessment and Plan Maintaining Current Dose?: Yes Reason for dose change: No Dose Change Pharmacist Note Pharmacist Note Date: 10/21/18. Pharmacist note:Will monitor and make adjustments as needed. Y[facility]AN [facility]ORALES [facility] October 21, 2018 21:11
[2018-10-21] MEDS ORDERED: NOREPINEPHRINE BITARTRATE 8 MG in D5W 492 ML IV SCH (21:30)
[2018-10-21 22:48] LABS: ALBUMIN 2.3 GM/DL (3.2-5.2); ALT/SGPT 19 U/L (12-78); BILIRUBIN,TOTAL 1.3 MG/DL (0.2-1.0); BLOOD UREA NITROGEN 3 MG/DL (7-18); CALCIUM LEVEL 7.1 MG/DL (8.8-10.2); CARBON DIOXIDE LEVEL 28 MEQ/L (21-32); CHLORIDE LEVEL 91 MEQ/L (98-107); CREATININE FOR GFR 0.37 MG/DL (0.55-1.30); GLOMERULAR FILTRATION RATE > 60.0 (>45); GLUCOSE, FASTING 125 MG/DL (70-100); POTASSIUM SERUM 3.6 MEQ/L (3.5-5.1); SODIUM LEVEL 126 MEQ/L (136-145); TOTAL PROTEIN 5.9 GM/DL (6.4-8.2)
[2018-10-22] VITALS (51 sets, daily range): BP systolic 47–117; BP diastolic 32–72
[2018-10-22] MEDS: PIPERACILLIN/TAZOBACTAM SOD 3.375 GM in D5W MINI-BAG PLUS 50 ML IV SCH ×2 (01:07→07:48)
[2018-10-22] MEDS ORDERED: HYDROCORTISONE 100 MG/2 ML VIAL (J1720) IV SCH (02:00)
[2018-10-22] MEDS: NS 0.45% 1,000 ML IV SCH ×3 (02:04→20:52)
[2018-10-22 02:19] LABS: ALBUMIN 2.4 GM/DL (3.2-5.2); ALT/SGPT 21 U/L (12-78); BILIRUBIN,TOTAL 1.5 MG/DL (0.2-1.0); BLOOD UREA NITROGEN 3 MG/DL (7-18); CALCIUM LEVEL 7.3 MG/DL (8.8-10.2); CARBON DIOXIDE LEVEL 32 MEQ/L (21-32); CHLORIDE LEVEL 94 MEQ/L (98-107); CREATININE FOR GFR 0.37 MG/DL (0.55-1.30); GLOMERULAR FILTRATION RATE > 60.0 (>45); GLUCOSE, FASTING 72 MG/DL (70-100); POTASSIUM SERUM 3.3 MEQ/L (3.5-5.1); SODIUM LEVEL 131 MEQ/L (136-145); TOTAL PROTEIN 5.7 GM/DL (6.4-8.2)
[2018-10-22] MEDS ORDERED: POTASSIUM CHLORIDE 10 MEQ SR TABLET PO ONE ×2 (02:45→12:45)
[2018-10-22] MEDS ORDERED: D5W 1,000 ML IV SCH (02:45)
--- NOTE | 2018-10-22 02:59 | TRANSCARE ---
Transition of Care: Transition of Care Was notified by aram at 1940 that patient's BP was low MAP<50for 2 consecutive readins. Last measurement read 64/45. Patient initially has Na116 at 1527 and Na125 as of 1805. Patient was currently getting 1/2 NS at 150ml/hr. Originally ordered NS bolus of 500ml, and after discussion with attending we will stop the NS bolus(at that time pt received about 250ml of the NS bolus) and start patient on IV fludrocortisone as pt likely has adrenal insufficiency/crisis. Patient was started on levophed at 2130. Na 126 at 2210, followed by Na 131 at 0148 the next day(10/22/18). Discussed with attending and we will switch patient to D5W at 150ml/hr. Called nursing regarding placing patient on D5W, and it was noted that patient can move all extremities and endorses no changes in strength or sensation. Cont to follow up BMP. K 3.3, and 40meq KCl repleted. Pt Urine Na>20, along with hypovolemia and hyponatremia, consistent with adrenal insufficiency. RICARDO FANG DO October 22, 2018 02:59
[2018-10-22 06:21] LABS: HEMATOCRIT 42.3 % (36.0-47.0); HEMOGLOBIN 14.8 g/dl (12.0-15.5); MEAN CORPUSCULAR HEMOGLOBIN 31.3 pg (27.0-33.0); MEAN CORPUSCULAR VOLUME 89.4 fl (80.0-96.0); PLATELET COUNT, AUTOMATED 187 10^3/uL (150-450); RED BLOOD COUNT 4.73 10^6/uL (4.00-5.40)
[2018-10-22 06:45] LABS: ALBUMIN 2.5 GM/DL (3.2-5.2); ALT/SGPT 25 U/L (12-78); BILIRUBIN,TOTAL 1.4 MG/DL (0.2-1.0); BLOOD UREA NITROGEN 3 MG/DL (7-18); CALCIUM LEVEL 7.4 MG/DL (8.8-10.2); CARBON DIOXIDE LEVEL 31 MEQ/L (21-32); CHLORIDE LEVEL 93 MEQ/L (98-107); CREATININE FOR GFR 0.45 MG/DL (0.55-1.30); GLOMERULAR FILTRATION RATE > 60.0 (>45); GLUCOSE, FASTING 217 MG/DL (70-100); POTASSIUM SERUM 3.6 MEQ/L (3.5-5.1); SODIUM LEVEL 130 MEQ/L (136-145); TOTAL PROTEIN 6.1 GM/DL (6.4-8.2)
[2018-10-22] MEDS: HumaLOG INSULIN (NovoLOG) PER UNIT SC SCH ×3 (06:53→18:07)
--- NOTE | 2018-10-22 07:37 | REP ---
CT BRAIN WITHOUT CONTRAST: HISTORY: Altered mental status. Comparison CT study, April 22, 2018. FINDINGS: Preliminary digital full decator operator radiograph is unremarkable. The patient is edentulous. Bone window settings demonstrate an intact bony calvarium. There is heavy vascular calcification in the distal carotid arteries bilaterally. Visualized paranasal sinuses are clear. No intraorbital abnormality is appreciated. There is diffuse generalized volume loss. There are areas of encephalomalacia in the distribution of the right middle cerebral artery, consistent with old infarcts. This is unchanged. There are small vessel atherosclerotic changes in the periventricular white matter bilaterally, also unchanged. There is no evidence of intracranial hemorrhage. No acute infarction is seen. No mass, extra-axial fluid collection, or midline shift is seen. 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 Vascular calcification and small vessel changes. No acute intracranial abnormality. Electronically Signed by Jefry Chau MD 10/22/2018 07:44 A
--- NOTE | 2018-10-22 07:42 | REP ---
PORTABLE CHEST X-RAY: SINGLE VIEW. HISTORY: Cough. COMPARISON STUDY: July 16, 2018 FINDINGS: The patient is rotated to the left for the current exposure. A left-sided Gufayh-J-Alql catheter is seen terminating in the expected location of the superior vena cava as before. There is right upper lobe paramedian fibrosis again noted, unchanged. Remaining lung garcia are clear. Pleural angles are sharp. Heart size is normal. 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 Emirao-J-Eyzj catheter. Otherwise no acute disease. Electronically Signed by Jefry Chau MD 10/22/2018 07:44 A
--- NOTE | 2018-10-22 07:59 | REP ---
CT ABDOMEN AND PELVIS WITH IV BUT WITHOUT ORAL CONTRAST: HISTORY: Abdomen pain. Comparison CT study is from March 05, 2016. CT CONTRAST DOSE: 100 mL of intravenous Isovue 370. Preliminary digital retail management keyholder radiograph demonstrates mild gaseous distension of the rectum and ascending colon. The lung bases are clear. The liver is normal in size, homogeneous in texture. There is a small cyst in the left lobe. The gallbladder wall shows mild enhancement. No stones seen. No pancreatic abnormality. Spleen is normal in size and homogeneous. No adrenal lesion is seen. There are cysts in the kidneys bilaterally. These include a septated cyst in the upper pole of the left kidney and a hyperdense cyst in the lower pole. These are unchanged from the [address] study. There is mild fullness in the intrarenal collecting systems bilaterally consistent with mild bilateral hydronephrosis. The urinary bladder is distended. No bladder or ureteral calculus is appreciated. There are bilateral pelvic phleboliths. No ureteral obstructive lesion is appreciated. No retroperitoneal mass or adenopathy is observed. Small and large bowel loops show air-fluid levels throughout. There is air and some fluid in the colon including a gas distended rectum. No obstructive lesion is seen. Uterus is surgically absent. The appendix is surgically absent. No abdominal wall defect is observed. Sagittal reformatted scans demonstrate evidence of a high-grade stenosis at the origin of the celiac axis. The celiac axis is patent. SMA and PUNEET are patent. Vascular calcification is noted. No other abnormality. IMPRESSION: Complex but stable cysts, left kidney. Mild bilateral intrarenal hydronephrosis, new when compared with the March 05, 2016 study. No etiology seen. The urinary bladder is somewhat distended. No stone disease is seen. No mass lesion is observed. Air and fluid-filled loops of large and small bowel, question mild ileus. 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 SMA is patent. PUNEET is patent. Status post hysterectomy and appendectomy. Electronically Signed by Jefry Chau MD 10/22/2018 09:19 A
[2018-10-22] MEDS ORDERED: VANCOMYCIN HCL 750 MG, VIAL MATE ADAPTER 1 EACH in D5W 250 ML IV SCH (09:00)
[2018-10-22] MEDS: FOLIC ACID 1 MG TAB PO SCH (09:29)
[2018-10-22] MEDS: CLOPIDOGREL 75 MG TAB PO SCH (09:29)
[2018-10-22] MEDS: HEPARIN SOD (PORCINE) 5000 UNITS/ML VIAL SQ SCH ×2 (09:29→20:38)
[2018-10-22] MEDS: ASPIRIN 81 MG ENTERIC TAB PO SCH (09:29)
[2018-10-22] MEDS: ATORVASTATIN 20 MG TAB PO SCH (09:29)
[2018-10-22] MEDS: MULTIVITAMINS/MINERALS THERAP 1 TAB PO SCH (09:29)
[2018-10-22] MEDS: CitaloPRAM (CeleXA) 10 MG TABLET PO SCH (09:30)
[2018-10-22] MEDS: FLUDROCORTISONE ACETATE 0.1 MG TAB PO SCH (09:30)
[2018-10-22] MEDS: THIAMINE 100 MG TAB PO SCH (09:30)
--- NOTE | 2018-10-22 09:31 | IPNPDOC ---
Subjective Date Seen The patient was seen on 10/22/18. Subjective Chief Complaint/HPI Patient is hungry now. feeling slightly better, offers no new complaints General: Denies: ROS Unobtainable, Chills, Night Sweats, Fatigue, Malaise, Normal Appetite, Other Symptoms Constitutional: Denies: Chills, Fever, Malaise, Night Sweats, Weakness, Fatigue, Weight Loss, Lethargy, Other Eyes: Denies: Pain, Vision change, Conjunctivae inflammation, Eyelid inflammation, Redness, Other ENT: Denies: Head Aches, Ear Pain, Dysphagia, Sinus Congestion, Post Nasal Drip, Sore Throat, Epistaxis, Other Symptoms Skin: Denies: Rash, Lesions, Jaundice, Bruising, Itching, Dry, Breakdown, Nail Changes, Other Pulmonary: Denies: Dyspnea, Cough, Pleuritic Chest Pain, Other Symptoms Cardiovascular: Denies: Chest Pain, Palpitations, Orthopnea, Paroxysmal Noc. Dyspnea, Edema, Lt Headedness, Other Symptoms Gastrointestinal: Denies: Nausea, Vomiting, Abdominal Pain, Diarrhea, C onstipation, Melena, Hematochezia, Other Symptoms Genitourinary: Denies: Dysuria, Frequency, Incontinence, Hematuria, Retention, Other Symptoms Hematologic: Denies: Bruising, Bleeding Excessively, Petecchia, Purpura, Enlarged Lymph Nodes, Other Hematologic Endocrine: Denies: Polydipsia, Polyphagia, Polyuria, Heat Intolerance, Cold I ntolerance, Other Endocrine Sx Musculoskeletal: Denies: Neck Pain, Back Pain, Shoulder Pain, Arm Pain, Hand Pain, Leg Pain, Foot Pain, Joint Pain, Muscle Pain, Spasms, Other Symptoms Neurological: Denies: Weakness, Numbness, Incoordination, Change in speech, Confusion, Seizures, Other Symptoms Psych: Denies: Mood Normal, Anxiety, Depression, Memory Issues, Thoughts of Self Harm, Anger, Thoughts of Harming Other, Other Psych Objective Physical Examination General Exam: Positive: Alert, Cooperative Eye Exam: Positive: PERRLA, Conjunctiva & lids normal ENT Exam: Positive: Atraumatic, Pharynx Normal Neck Exam: Positive: Supple, JVD, thyromegaly Chest Exam: Positive: Rhonchi (bilateral rhonchi is audible. No wheezing), Diminished Heart Exam: Positive: Rate Normal, Normal S1, Normal S2 Abdomen Exam: Positive: Normal bowel sounds, Soft, Tenderness Extremity Exam: Positive: Other (the redness of both feet with onychomycosis of nails noted) Skin Exam: Positive: Other skin issue (patient has a excoriated skin with increased local temperature and redness on on the back of her both legs, sacrum and upper lower part of her back) Neuro Exam: Positive: Other (unable to examine as patient is critical) Psych Exam: Positive: Mental status NL A-FIB/CHADSVASC A-FIB History Current/History of A-Fib/PAF?: No Assessment /Plan Problems (1) Sepsis Status: Acute Response to Treatment: Worse Discussed With: Nurse Problem Text: Patient is improved very well with IV antibiotics Lactic acid level and repeat one was 1.0 WBC count also is progressively decreasing Will DC Zosyn at this no other source of infection such as pneumonia or intra- abdominal infection, sepsis, most likely secondary to cellulitis Will also continue IV fluid half normal saline at 75 mL per hour DC Levophed and patient has a baseline hypotension with systolic running between 80 and 90 does not require vasopressors if patient is asymptomatic and systolic blood pressure is more than 80 Patient was also started on the IV steroids for possibility of and renal insufficiency secondary to multiple medical issues. We will decrease Solu-Cortef 200 mg IV every 12 hours and progressively will discontinue it Repeat labs in a.m. Continue present care (2) Hyponatremia Status: Acute Response to Treatment: Worse Problem Text: Serial serum sodium is improved very well, is 13o now Patient was started on D5W last night but will DC 8 as patient has a history of diabetes mellitus and also on a stress dose steroids , which both can cause elevated blood sugar level Will start half-normal saline at 75 mL per hour, slowly increase patient's serum sodium level Will repeat labs including magnesium today and in the morning Nephrology consult is pending (3) Emaciated Status: Chronic Problem Text: MSE admitted secondary to poor diet and nutrition status and hi story of alcohol abuse Patient has been started on carbohydrate consistent diet Request dietary consultation. Once clinically stable (4) Diabetes mellitus Status: Chronic Problem Text: Patient is only on Glucophage, which I will hold at the present time Will start patient on fingerstick blood sugar coverage every 6 hours Once clinically stable and hemoglobin A1c has been ordered it returns then will decide further treatment regarding her diabetes mellitus (5) COPD (chronic obstructive pulmonary disease) Status: Chronic Problem Text: History of for COPD, which is chronic in nature secondary to smoking Patient will be started on NicoDerm And if she will be started on DuoNeb every 6 hours as patient does have rhonchi on clinical exam, but no wheezing Will also will do of smoking cessation counseling once patient is clinically stable (6) Alcohol abuse Status: Acute Problem Text: Hx of severe alcohol abuse Right now, patient is intoxicated does not require any medication for withdra wal, but eventually she will require Shiva protocol with the withdrawal. Once her once her upper level has decreased below the intoxication levels Seizure precaution has been ordered Ativan 1 mg IV every 2 hours when necessary for seizures are agitation. If the blood pressure is stable (7) Alcohol intoxication (8) Head injuries Status: Acute Problem Text: Head injury secondary to fall CT of the head is essentially negative does not show any hemorrhage or hematoma Neuro check every 4 hours Plan/VTE VTE Prophylaxis Ordered?: Yes VS, I&O, 24H, Fishbone Vital Signs/I&O Vital Signs Date Time Temp Pulse Resp B/P (MAP) Pulse Ox O2 Delivery O2 Flow Rate FiO2 10/22/18 08:00 2.0 10/22/18 06:30 92 20 90/53 (65) 93 10/22/18 04:00 97.9 10/21/18 18:46 Nasal Cannula I&O- Last 24 Hours up to 6 AM 10/22/18 06:00 Intake Total 4351.8 ml Output Total 4980 ml Balance -628.2 ml Laboratory Data 24H LABS Laboratory Tests 2 10/21/18 15:27: Anion Gap 14, Glomerular Filtration Rate > 60.0, Osmolality 270L, Calcium Level 7.4L, Aspartate Amino Transf (AST/SGOT) 55H, Alanine Aminotransferase (ALT/SGPT) 22, Alkaline Phosphatase 115, Total Bilirubin 1.2H, Direct Bilirubin 0.4H, Ammonia 14, Total Creatine Kinase 848H, Creatine Kinase MB 7.0H, Creatine Kinase MB Relative Index 0.84, Troponin I < 0.02, Total Protein 6.3L, Albumin 3.0L, Albumin/Globulin Ratio 0.91L, Thyroid Stimulating Hormone (TSH) 2.340, Ethyl Alcohol Level 0.133H 10/21/18 15:31: Bedside Glucose (Misc Panel) 135H 10/21/18 16:03: Immature Granulocyte % (Auto) 0.4, White Blood Count 17.5H, Red Blood Count 5.05, Hemoglobin 15.9H, Hematocrit 44.8, Mean Corpuscular Volume 88.7, Mean Corpuscular Hemoglobin 31.5, Mean Corpuscular Hemoglobin Concent 35.5, Red Cell Distribution Width 14.1, Platelet Count 180, Neutrophils (%) (Auto) 83.8H, Lymphocytes (%) (Auto) 8.1L, Monocytes (%) (Auto) 7.3H, Eosinophils (%) (Auto) 0.1, Basophils (%) (Auto) 0.3, Neutrophils # (Auto) 14.7H, Lymphocytes # (Auto) 1.4L, Monocytes # (Auto) 1.3H, Eosinophils # (Auto) 0.0, Basophils # (Auto) 0.1, Nucleated Red Blood Cells % (auto) 0.0 10/21/18 16:08: Blood Gas Bicarbonate Standard 21.4, Venous Blood pH 7.309L, Venous Blood Partial Pressure CO2 49.4, Venous Blood Partial Pressure O2 34.8, Venous Blood Total Carbon Dioxide 25.8, Venous Blood HCO3 24.3, Venous Blood Oxygen Saturation 63.0, Venous Blood Base Excess -2.6L 10/21/18 16:38: Urine Color (JUMANA) LT YELLOW, Urine Appearance (JUMANA) CLEAR, Urine pH (JUMANA) 6.0, Urine Specific [place] (JUMANA) 1.010, Urine Protein NEGATIVE, Bedside Urine Glucose (UA) NEGATIVE, Bedside Urine Ketones (LAB) NEGATIVE, Bedside Urine Blood NEGATIVE, Bedside Urine Nitrite (LAB) NEGATIVE, Bedside Urine Bilirubin (LAB) NEGATIVE, Bedside Urine Urobilinogen (LAB) NORMAL, Bedside Urine Leukocyte Esterase (L NEGATIVE, Urine Amphetamines Screen NEGATIVE, Urine Benzodiazepines Screen NEGATIVE, Urine Opiates Screen NEGATIVE, Urine Methadone Screen NEGATIVE, Urine Barbiturates Screen NEGATIVE, Urine Phencyclidine Screen NEGATIVE, Urine Cocaine Metabolite Screen NEGATIVE, Urine Cannabinoids Screen NEGATIVE 10/21/18 18:05: Anion Gap 9, Glomerular Filtration Rate > 60.0, Blood Urea Nitrogen 4L, Creatinine 0.27L, Sodium Level 125#L, Potassium Level 3.8, Chloride Level 90L, Carbon Dioxide Level 26, Calcium Level 6.5L, Aspartate Amino Transf (AST/SGOT) 43H, Alanine Aminotransferase (ALT/SGPT) 20, Alkaline Phosphatase 93, Total Bilirubin 1.0, Total Protein 5.2L, Albumin 2.4L, Magnesium Level 1.7L, Albumin/Globulin Ratio 0.86L 10/21/18 18:40: Lactic Acid Level 2.2*H 10/21/18 22:10: Anion Gap 7L, Glomerular Filtration Rate > 60.0, Blood Urea Nitrogen 3L, Creatinine 0.37L, Sodium Level 126L, Potassium Level 3.6, Chloride Level 91L, Carbon Dioxide Level 28, Calcium Level 7.1L, Aspartate Amino Transf (AST/SGOT) 51H, Alanine Aminotransferase (ALT/SGPT) 19, Alkaline Phosphatase 92, Total Bilirubin 1.3H, Total Protein 5.9L, Albumin 2.3L, Albumin/Globulin Ratio 0.64L 10/21/18 23:26: Bedside Glucose (Misc Panel) 134H 10/22/18 01:48: Anion Gap 5L, Glomerular Filtration Rate > 60.0, Lactic Acid Followup at 4 Hours 1.0, Blood Urea Nitrogen 3L, Creatinine 0.37L, Sodium Level 131L, Potassium Level 3.3L, Chloride Level 94L, Carbon Dioxide Level 32, Calcium Level 7.3L, Aspartate Amino Transf (AST/SGOT) 59H, Alanine Aminotransferase (ALT/SGPT) 21, Alkaline Phosphatase 97, Total Bilirubin 1.5H, Total Protein 5.7L, Albumin 2.4L, Albumin/Globulin Ratio 0.73L 10/22/18 02:04: Urine Random Sodium 35 10/22/18 06:01: Anion Gap 6L, Glomerular Filtration Rate > 60.0, Blood Urea Nitrogen 3L, Creatinine 0.45L, Sodium Level 130L, Potassium Level 3.6, Chloride Level 93L, Carbon Dioxide Level 31, Calcium Level 7.4L, Aspartate Amino Transf (AST/SGOT) 59H, Alanine Aminotransferase (ALT/SGPT) 25, Alkaline Phosphatase 94, Total Bilirubin 1.4H, Total Protein 6.1L, Albumin 2.5L, Albumin/Globulin Ratio 0.69L, Nucleated Red Blood Cells % (auto) 0.0 10/22/18 06:49: Bedside Glucose (Misc Panel) 252H CBC/BMP Laboratory Tests 10/21/18 15:27 10/21/18 16:03 Red Blood Count 5.05, Mean Corpuscular Volume 88.7, Mean Corpuscular Hemoglobin 31.5, Mean Corpuscular Hemoglobin Concent 35.5, Red Cell Distribution Width 14.1, Neutrophils (%) (Auto) 83.8 H, Lymphocytes (%) (Auto) 8.1 L, Monocytes (%) (Auto) 7.3 H, Eosinophils (%) (Auto) 0.1, Basophils (%) (Auto) 0.3, Neutrophils # (Auto) 14.7 H, Lymphocytes # (Auto) 1.4 L, Monocytes # (Auto) 1.3 H, Eosinophils # (Auto) 0.0, Basophils # (Auto) 0.1 10/21/18 18:05 Calcium Level 6.5 L, Aspartate Amino Transf (AST/SGOT) 43 H, Alanine Aminotransferase (ALT/SGPT) 20, Alkaline Phosphatase 93, Total Bilirubin 1.0, Total Protein 5.2 L, Albumin 2.4 L 10/21/18 22:10 Calcium Level 7.1 L, Aspartate Amino Transf (AST/SGOT) 51 H, Alanine Aminotransferase (ALT/SGPT) 19, Alkaline Phosphatase 92, Total Bilirubin 1.3 H, Total Protein 5.9 L, Albumin 2.3 L 10/22/18 01:48 Calcium Level 7.3 L, Aspartate Amino Transf (AST/SGOT) 59 H, Alanine Aminotransferase (ALT/SGPT) 21, Alkaline Phosphatase 97, Total Bilirubin 1.5 H, Total Protein 5.7 L, Albumin 2.4 L 10/22/18 06:01 Calcium Level 7.4 L, Aspartate Amino Transf (AST/SGOT) 59 H, Alanine Aminotran sferase (ALT/SGPT) 25, Alkaline Phosphatase 94, Total Bilirubin 1.4 H, Total Protein 6.1 L, Albumin 2.5 L, Red Blood Count 4.73, Mean Corpuscular Volume 89.4, Mean Corpuscular Hemoglobin 31.3, Mean Corpuscular Hemoglobin Concent 35.0, Red Cell Distribution Width 14.1 Microbiology Microbiology 10/21/18 Blood Culture, Received Pending 10/21/18 Blood Culture, Received Pending 10/21/18 Blood Culture, Received Pending 10/22/18 Urine Culture, Received Pending LILIAN MCHUGH MD October 22, 2018 09:31
[2018-10-22 12:32] LABS: ALBUMIN 2.4 GM/DL (3.2-5.2); ALT/SGPT 23 U/L (12-78); BILIRUBIN,TOTAL 1.3 MG/DL (0.2-1.0); BLOOD UREA NITROGEN 4 MG/DL (7-18); CARBON DIOXIDE LEVEL 32 MEQ/L (21-32); CHLORIDE LEVEL 92 MEQ/L (98-107); CREATININE FOR GFR 0.42 MG/DL (0.55-1.30); GLOMERULAR FILTRATION RATE > 60.0 (>45); GLUCOSE, FASTING 123 MG/DL (70-100); POTASSIUM SERUM 3.2 MEQ/L (3.5-5.1); SODIUM LEVEL 131 MEQ/L (136-145); TOTAL PROTEIN 5.2 GM/DL (6.4-8.2)
[2018-10-22] MEDS: NOREPINEPHRINE BITARTRATE 8 MG in D5W 492 ML IV SCH (12:49)
[2018-10-22] MEDS: HYDROCORTISONE 100 MG/2 ML VIAL (J1720) IV SCH (14:45)
[2018-10-22] MEDS: NEPHRO-VIT TAB (NEPHROCAPS) PO SCH (20:39)
[2018-10-22] MEDS: ZINC SULFATE 220 MG CAP PO SCH (20:39)
[2018-10-22 21:14] LABS: ALBUMIN 2.1 GM/DL (3.2-5.2); ALT/SGPT 19 U/L (12-78); BILIRUBIN,TOTAL 0.7 MG/DL (0.2-1.0); BLOOD UREA NITROGEN 6 MG/DL (7-18); CARBON DIOXIDE LEVEL 33 MEQ/L (21-32); CHLORIDE LEVEL 93 MEQ/L (98-107); CREATININE FOR GFR 0.57 MG/DL (0.55-1.30); GLOMERULAR FILTRATION RATE > 60.0 (>45); GLUCOSE, FASTING 160 MG/DL (70-100); POTASSIUM SERUM 3.1 MEQ/L (3.5-5.1); SODIUM LEVEL 130 MEQ/L (136-145); TOTAL PROTEIN 5.6 GM/DL (6.4-8.2)
--- NOTE | 2018-10-22 21:29 | PHACANCOPD ---
PHARMACY VANCOMYCIN DOSING Pt Demographics Demographics Patient Age:62 , Weight:43.600 , Gender: female Adjusted Body Weight Date: 10/21/18, Adjusted Body Weight: Kg Events Past 24 Hours Events Past 24 Hours: NO: Dialysis, Diuretic Therapy, Change in CrCl, Fever, Elevation in WBC, Pending Diagnostics, Pending Procedures, Other Vancomycin Vancomycin Target Ranges: 10-20 mcg/ml Vancomycin Load Y/N: Yes Load Dose Date Time Vancomycin Load Dose: 1000mg Date: 10-21 Time: 2100 Vancomycin Dose Date: 10/22/18. Current Vancomycin Dose: [1000mg q8h] Intermittent Dosing?: No Labs Labs Item Value Date Time White Blood Count 14.0 10^3/uL H 10/22/18600 Glomerular Filtration Rate > 60.0 10/22/182029 Creatinine 0.57 MG/DL 10/22/182029 Blood Urea Nitrogen 6 MG/DL L 10/22/182029 Vancomycin Level Trough 6.0 UG/ML L 10/22/182029 Vital Signs Label Value Date Time Patient Temperature 97.6 degrees F 10/22/18 1600 Temperature Source Temporal 10/22/18 1600 Micro Microbiology 10/21/18 Blood Culture - Preliminary, Resulted No growth after 24 hours . All specim... 10/21/18 Blood Culture - Preliminary, Resulted No growth after 24 hours . All specim... 10/21/18 Blood Culture - Preliminary, Resulted No growth after 24 hours . All specim... 10/22/18 Urine Culture, Received Pending Creatinine Clearance Date:10/21/18. Creatinine Clearance: [calculated at 226 but is not accurate due to inactivity and low body mass.]. Pending Labs Trough 05-13 @1300 Assessment and Plan Maintaining Current Dose?: No Reason for dose change: Trough too low Pharmacist Note Pharmacist Note Date: 10/22/18. Pharmacist note:Trough of 6 is below target range. Dose increased to 1000mg q8h. Will continue to monitor and make adjustments as needed. Y[facility]AN [facility]ORALES [facility] October 22, 2018 21:29
[2018-10-22] MEDS: VANCOMYCIN HCL 1,000 MG, VIAL MATE ADAPTER 1 EACH in D5W 250 ML IV SCH (21:36)
[2018-10-23] VITALS (40 sets, daily range): BP systolic 75–136; BP diastolic 50–81
[2018-10-23] MEDS: HumaLOG INSULIN (NovoLOG) PER UNIT SC SCH ×4 (00:55→21:00)
--- NOTE | 2018-10-23 02:26 | CR ---
DATE OF CONSULTATION: 10/22/2018 REASON FOR CONSULTATION: Hyponatremia. HISTORY OF PRESENT ILLNESS: Ms. Simmons is a 66-year-old female who was admitted to [facility] yesterday due to mechanical fall and history of cough and hypotension. She is currently in intensive care unit. She was found to have severe hyponatremia in the setting of history of alcohol use, chronic obstructive pulmonary disease (COPD) and lung cancer. She also has diabetes and prior stroke. Her initial sodium level was 116 and she was hypotensive due to which the emergency room physician had given her a bolus of normal saline 1 liter. Her repeat chemistry shortly after that showed a sodium level 125. I was called for a consult by the emergency room (ER) physician after she had already received a fluid bolus. I had recommended to give her further fluids with only half normal saline in order to prevent over correction. In any event, her repeat sodium was already up to 125 and she is now admitted to intensive care unit where she is being treated for possible pneumonia and is still on Levophed due to hypotension. She is eating and drinking better this morning according to nursing staff. PAST MEDICAL AND SURGICAL HISTORY: Significant for 1. History of chronic alcohol use. 2. COPD. 3. Lung cancer. 4. Diabetes type 2. 5. History of prior stroke. 6. History of schizophrenia. 7. History of fall at home. 8. History of depression. 9. History of possible chronic hyponatremia. MEDICATIONS: Her home medications include: - aspirin 81 mg daily - Plavix 75 mg daily - atorvastatin 80 mg daily - Pulmicort 180 mcg twice a day - citalopram 10 mg daily - fludrocortisone 0.1 mg daily - folic acid 1 mg daily - metformin 500 mg at bedtime - multivitamin one tablet daily - thiamine 100 mg daily - albuterol inhaler as needed. ALLERGIES: She has no known drug allergies. PERSONAL AND SOCIAL HISTORY: The patient does have history of smoking and heavy alcohol use. FAMILY HISTORY: Family history is noncontributory. REVIEW OF SYSTEMS: She denies any fever or chills at present. She does have some cough. Nose and throat are unremarkable. Cardiovascular system significant for hypotension. She denies any chest pain or dyspnea. Respiratory system is significant for cough without any hemoptysis. Gastrointestinal (GI) system negative for vomiting or diarrhea. Genitourinary () system negative for dysuria or hematuria. Endocrine system significant for type 2 diabetes. Psychosocial system significant for schizophrenia, history of depression and heavy alcohol use. Hematological system is negative for any excessive bleeding or bruising. Musculoskeletal system negative for leg edema. She does have history of fall prior to admission. PHYSICAL EXAMINATION: Middle-aged lady who looks older than her stated age lying in the bed without any acute distress. Temperature 98.9 degrees Fahrenheit, heart 86 per minute and respiratory rate 16 per minute. Blood pressure 100/60 mmHg and oxygen saturation 96% on 2 liters oxygen. She is still on low-dose Levophed. Neck is supple and jugular venous distention (JVD) is not elevated. She has no oral thrush or ulcers. Heart: Sounds are regular and lungs with scattered rhonchi. Abdomen: Soft and nontender. Bowel sounds are normal. Extremities: Without any cyanosis or clubbing. There is no peripheral edema. Neurologically she is awake, alert and without a focal deficit. LABORATORY DATA: Her white blood cell (WBC) count on admission was 17.5, hemoglobin 15.9 and hematocrit 44.8. Today's labs show sodium 130 and potassium 3.6. BUN is 3 and creatinine 0.45. Her initial sodium was 116 on admission at 1527, however at 1605 her sodium level was 125 and potassium 3.8. BUN was 4 and creatinine 0.27. PROBLEMS: 1. Hyponatremia. The patient already had significant improvement in her sodium level. Initially her sodium was quite low however, after initial fluid bolus given in the emergency room her sodium level had already improved to 125 and since then her sodium level has improved very slowly up to 130 this morning which is appropriate. She is currently receiving only half normal saline and her sodium is likely to improve over the next 24-48 hours. I would suggest to continue with the same as the patient is now eating much better that also help. 2. Hypokalemia. Her potassium level was 3.3 early this morning and is now up to 3.6. She is likely to require some more potassium supplement and followup of her electrolytes. 3. Sepsis. She is still on low-dose Levophed and receiving IV fluid. She is also receiving IV antibiotics and she is currently afebrile. She is hemodynamically improving. Thank you for involving me in the care of Ms. Simmons. From a renal standpoint her sodium level has already improved significantly and is gradually improving in the right direction. I do not have much to contribute to her care further and will sign off the case.
[2018-10-23] MEDS: HYDROCORTISONE 100 MG/2 ML VIAL (J1720) IV SCH ×2 (02:45→14:51)
[2018-10-23] MEDS: NOREPINEPHRINE BITARTRATE 8 MG in D5W 492 ML IV SCH (02:46)
[2018-10-23 05:01] LABS: HEMATOCRIT 40.1 % (36.0-47.0); HEMOGLOBIN 13.9 g/dl (12.0-15.5); MEAN CORPUSCULAR HGB CONC 34.7 g/dl (32.0-36.5); MEAN CORPUSCULAR VOLUME 89.5 fl (80.0-96.0); PLATELET COUNT, AUTOMATED 156 10^3/uL (150-450); RED BLOOD COUNT 4.48 10^6/uL (4.00-5.40); WHITE BLOOD COUNT 20.9 10^3/uL (4.0-10.0)
[2018-10-23 05:47] LABS: ALBUMIN 2.6 GM/DL (3.2-5.2); ALT/SGPT 25 U/L (12-78); BILIRUBIN,TOTAL 0.7 MG/DL (0.2-1.0); BLOOD UREA NITROGEN 4 MG/DL (7-18); CALCIUM LEVEL 7.3 MG/DL (8.8-10.2); CARBON DIOXIDE LEVEL 36 MEQ/L (21-32); CHLORIDE LEVEL 92 MEQ/L (98-107); CREATININE FOR GFR 0.35 MG/DL (0.55-1.30); GLOMERULAR FILTRATION RATE > 60.0 (>45); GLUCOSE, FASTING 28 MG/DL (70-100); MAGNESIUM LEVEL 1.8 MG/DL (1.8-2.4); POTASSIUM SERUM 2.5 MEQ/L (3.5-5.1); SODIUM LEVEL 132 MEQ/L (136-145); TOTAL PROTEIN 6.4 GM/DL (6.4-8.2)
[2018-10-23] MEDS: VANCOMYCIN HCL 1,000 MG, VIAL MATE ADAPTER 1 EACH in D5W 250 ML IV SCH ×3 (06:13→22:10)
[2018-10-23] MEDS ORDERED: POTASSIUM CHLORIDE 10 MEQ SR TABLET PO ONE (06:15)
[2018-10-23] MEDS ORDERED: KCL 10MEQ/100ML SWI (KRUN) 10 MEQ in APPROPRIATE DILUENT 1 EA IV ONE (06:15)
[2018-10-23] MEDS: KCL 10MEQ/100ML SWI (KRUN) 10 MEQ in APPROPRIATE DILUENT 1 EA IV SCH ×3 (06:30→09:16)
[2018-10-23] MEDS: PIPERACILLIN/TAZOBACTAM SOD 3.375 GM in D5W MINI-BAG PLUS 50 ML IV SCH ×3 (07:56→20:27)
[2018-10-23] MEDS: KCL 40MEQ in NS 1000ML 1,000 ML IV SCH ×2 (07:56→21:53)
[2018-10-23] MEDS: ASPIRIN 81 MG ENTERIC TAB PO SCH (07:57)
[2018-10-23] MEDS: MULTIVITAMINS/MINERALS THERAP 1 TAB PO SCH (07:57)
[2018-10-23] MEDS: FLUDROCORTISONE ACETATE 0.1 MG TAB PO SCH (07:57)
[2018-10-23] MEDS: THIAMINE 100 MG TAB PO SCH (07:57)
[2018-10-23] MEDS: CLOPIDOGREL 75 MG TAB PO SCH (07:57)
[2018-10-23] MEDS: HEPARIN SOD (PORCINE) 5000 UNITS/ML VIAL SQ SCH ×2 (07:57→21:51)
[2018-10-23] MEDS: CitaloPRAM (CeleXA) 10 MG TABLET PO SCH (07:57)
[2018-10-23] MEDS: ZINC SULFATE 220 MG CAP PO SCH ×2 (07:57→21:51)
[2018-10-23] MEDS: ATORVASTATIN 20 MG TAB PO SCH (07:57)
[2018-10-23] MEDS: FOLIC ACID 1 MG TAB PO SCH (07:57)
[2018-10-23] MEDS ORDERED: metFORMIN (GLUCOPHAGE) 500 MG TAB PO SCH (08:00)
[2018-10-23] MEDS ORDERED: LORazepam 2 MG TAB PO PRN (08:45)
[2018-10-23] MEDS ORDERED: SITagliptin 50 MG TAB (JANUVIA) PO SCH (09:00)
--- NOTE | 2018-10-23 12:05 | IPNPDOC ---
Subjective Date Seen The patient was seen on 10/23/18. Subjective Chief Complaint/HPI Patient is appetite is much better. She offers no new complaints at the present time General: Denies: ROS Unobtainable, Chills, Night Sweats, Fatigue, Malaise, Normal Appetite, Other Symptoms Constitutional: Denies: Chills, Fever, Malaise, Night Sweats, Weakness, Fatigue, Weight Loss, Lethargy, Other Eyes: Denies: Pain, Vision change, Conjunctivae inflammation, Eyelid inflamma tion, Redness, Other ENT: Denies: Head Aches, Ear Pain, Dysphagia, Sinus Congestion, Post Nasal Drip, Sore Throat, Epistaxis, Other Symptoms Skin: Denies: Rash, Lesions, Jaundice, Bruising, Itching, Dry, Breakdown, Nail Changes, Other Pulmonary: Denies: Dyspnea, Cough, Pleuritic Chest Pain, Other Symptoms Cardiovascular: Denies: Chest Pain, Palpitations, Orthopnea, Paroxysmal Noc. Dyspnea, Edema, Lt Headedness, Other Symptoms Gastrointestinal: Denies: Nausea, Vomiting, Abdominal Pain, Diarrhea, Constipation, Melena, Hematochezia, Other Symptoms Genitourinary: Denies: Dysuria, Frequency, Incontinence, Hematuria, Retention, Other Symptoms Hematologic: Denies: Bruising, Bleeding Excessively, Petecchia, Purpura, Enlarged Lymph Nodes, Other Hematologic Endocrine: Denies: Polydipsia, Polyphagia, Polyuria, Heat Intolerance, Cold Intolerance, Other Endocrine Sx Musculoskeletal: Denies: Neck Pain, Back Pain, Shoulder Pain, Arm Pain, Hand Pain, Leg Pain, Foot Pain, Joint Pain, Muscle Pain, Spasms, Other Symptoms Neurological: Denies: Weakness, Numbness, Incoordination, Change in speech, Confusion, Seizures, Other Symptoms Psych: Denies: Mood Normal, Anxiety, Depression, Memory Issues, Thoughts of Self Harm, Anger, Thoughts of Harming Other, Other Psych Objective Physical Examination General Exam: Positive: Alert, Cooperative Eye Exam: Positive: PERRLA, Conjunctiva & lids normal ENT Exam: Positive: Atraumatic, Pharynx Normal Neck Exam: Positive: Supple, JVD, thyromegaly Chest Exam: Positive: Rhonchi (bilateral rhonchi is audible. No wheezing), Diminished Heart Exam: Positive: Rate Normal, Normal S1, Normal S2 Abdomen Exam: Positive: Normal bowel sounds, Soft, Tenderness Extremity Exam: Positive: Other (the redness of both feet with onychomycosis of nails noted) Skin Exam: Positive: Other skin issue (patient has a excoriated skin with increased local temperature and redness on on the back of her both legs, sacrum and upper lower part of her back) Neuro Exam: Positive: Other (unable to examine as patient is critical) Psych Exam: Positive: Mental status NL A-FIB/CHADSVASC A-FIB History Current/History of A-Fib/PAF?: No Assessment /Plan Problems (1) Severe sepsis with septic shock Problem Text: Patient with WBC count is slightly elevated today, so will restart Zosyn along with Zantac vancomycin Patient is also on Levophed 4 mcg/m, which was slowly will taper it off Will start IV fluid normal saline now at 75 mL per hour with KCl 40 mEq and A.m. level work has been ordered Continue present care (2) Hyponatremia Status: Acute Response to Treatment: Worse Problem Text: Serial serum sodium is improved very well, is 131 now Will restart normal saline at 75 mL per hour and monitor her serum sodium levels Is a progressive slow rise in sodium level, so we'll continue the same treatment (3) Severe protein-calorie malnutrition Problem Text: admitted secondary to poor diet and nutrition status and history of alcohol abuse Patient has been started on carbohydrate consistent diet Request dietary consultation. (4) Diabetes mellitus Status: Chronic Problem Text: Patient is only on Glucophage, which I will hold at the present time Will start patient on fingerstick blood sugar coverage every 6 hours Hemoglobin A1c has been ordered, patient was hypoglycemic this morning, but recurred quickly with her dietary supplements (5) COPD (chronic obstructive pulmonary disease) Status: Chronic Problem Text: History of for COPD, which is chronic in nature secondary to smoking Patient will be started on NicoDerm And if she will be started on DuoNeb every 6 hours as patient does have rhonchi on clinical exam, but no wheezing Will also will do of smoking cessation counseling once patient is clinically stable (6) Alcohol abuse Status: Acute Problem Text: Hx of severe alcohol abuse Right now, patient is intoxicated does not require any medication for withdrawal, but eventually she will require Shiva protocol with the withdrawal. Once her once her upper level has decreased below the intoxication levels Seizure precaution has been ordered Ativan 1 mg IV every 2 hours when necessary for seizures are agitation. If the blood pressure is stable (7) Head injuries Status: Acute Problem Text: Head injury secondary to fall CT of the head is essentially negative does not show any hemorrhage or hematoma Neuro check every 4 hours Plan/VTE VTE Prophylaxis Ordered?: Yes VS, I&O, 24H, Fishbone Vital Signs/I&O Vital Signs Date Time Temp Pulse Resp B/P (MAP) Pulse Ox O2 Delivery O2 Flow Rate FiO2 10/23/18 11:00 89 18 83/54 (64) 93 2.0 10/23/18 08:00 98.5 10/21/18 18:46 Nasal Cannula I&O- Last 24 Hours up to 6 AM 10/23/18 06:00 Intake Total 4086.4 ml Output Total 4375 ml Balance -288.6 ml Laboratory Data 24H LABS Laboratory Tests 2 10/22/18 18:03: Bedside Glucose (Misc Panel) 171H 10/22/18 20:30: Anion Gap 4L, Glomerular Filtration Rate > 60.0, Blood Urea Nitrogen 6L, Creatinine 0.57, Sodium Level 130L, Potassium Level 3.1L, Chloride Level 93L, Carbon Dioxide Level 33H, Calcium Level 7.0L, Aspartate Amino Transf (AST/SGOT) 44H, Alanine Aminotransferase (ALT/SGPT) 19, Alkaline Phosphatase 84, Total Bilirubin 0.7, Total Protein 5.6L, Albumin 2.1L, Albumin/Globulin Ratio 0.60L, Vancomycin Level Trough 6.0L 10/23/18 00:49: Bedside Glucose (Misc Panel) 375H 10/23/18 04:48: Anion Gap 4L, Glomerular Filtration Rate > 60.0, Blood Urea Nitrogen 4L, C reatinine 0.35L, Sodium Level 132L, Potassium Level 2.5*L, Chloride Level 92L, Carbon Dioxide Level 36H, Calcium Level 7.3L, Aspartate Amino Transf (AST/SGOT) 45H, Alanine Aminotransferase (ALT/SGPT) 25, Alkaline Phosphatase 93, Total Bilirubin 0.7, Total Protein 6.4, Albumin 2.6#L, Albumin/Globulin Ratio 0.68L, Nucleated Red Blood Cells % (auto) 0.0, Magnesium Level 1.8 10/23/18 05:43: Bedside Glucose (Misc Panel) 45L 10/23/18 05:58: Bedside Glucose (Misc Panel) 110 CBC/BMP Laboratory Tests 10/22/18 20:30 Calcium Level 7.0 L, Aspartate Amino Transf (AST/SGOT) 44 H, Alanine Aminotransferase (ALT/SGPT) 19, Alkaline Phosphatase 84, Total Bilirubin 0.7, Total Protein 5.6 L, Albumin 2.1 L 10/23/18 04:48 Calcium Level 7.3 L, Aspartate Amino Transf (AST/SGOT) 45 H, Alanine Aminotransferase (ALT/SGPT) 25, Alkaline Phosphatase 93, Total Bilirubin 0.7, Total Protein 6.4, Albumin 2.6 #L, Red Blood Count 4.48, Mean Corpuscular Volume 89.5, Mean Corpuscular Hemoglobin 31.0, Mean Corpuscular Hemoglobin Concent 34 .7, Red Cell Distribution Width 14.2 Microbiology Microbiology 10/21/18 Blood Culture - Preliminary, Resulted No growth after 24 hours . All specim... 10/21/18 Blood Culture - Preliminary, Resulted No growth after 24 hours . All specim... 10/21/18 Blood Culture - Preliminary, Resulted No growth after 24 hours . All specim... 10/22/18 Urine Culture, Received Pending LILIAN MCHUGH MD October 23, 2018 12:05
--- NOTE | 2018-10-23 15:05 | PHACANCOPD ---
PHARMACY VANCOMYCIN DOSING Pt Demographics Demographics Patient Age:62 , Weight:43.600 , Gender: female Adjusted Body Weight Date: 10/21/18, Adjusted Body Weight: Kg Events Past 24 Hours Events Past 24 Hours: NO: Dialysis, Diuretic Therapy, Change in CrCl, Fever, Elevation in WBC, Pending Diagnostics, Pending Procedures, Other Vancomycin Vancomycin Target Ranges: 10-20 mcg/ml Vancomycin Load Y/N: Yes Load Dose Date Time Vancomycin Load Dose: 1000mg Date: 10-21 Time: 2100 Vancomycin Dose Date: 10/22/18. Current Vancomycin Dose: [1000mg q8h] Intermittent Dosing?: No Labs Labs Item Value Date Time White Blood Count 14.0 10^3/uL H 10/22/18 0601 White Blood Count 20.9 10^3/uL H 10/23/18 0448 Creatinine 0.42 MG/DL L 10/22/18 1142 Creatinine 0.57 MG/DL 10/22/182029 Creatinine 0.35 MG/DL L 10/23/18 0448 Vancomycin Level Trough 6.0 UG/ML L 10/22/18 2030 Vancomycin Level Trough 13.4 UG/ML 10/23/18 1406 Micro Microbiology 10/21/18 Blood Culture - Preliminary, Resulted No growth after 24 hours . All specim... 10/21/18 Blood Culture - Preliminary, Resulted No growth after 24 hours . All specim... 10/21/18 Blood Culture - Preliminary, Resulted No growth after 24 hours . All specim... 10/22/18 Urine Culture, Received Pending Creatinine Clearance Date:10/21/18. Creatinine Clearance: [calculated at 226 but is not accurate due to inactivity and low body mass.]. Assessment and Plan Maintaining Current Dose?: Yes Reason for dose change: No Dose Change Pharmacist Note Pharmacist Note Date: 10/23/18. Pharmacist note:Trough came back today @ 13.4mcg/ml. We will con tinue 1g iv every 8 hours. We will continue to monitor and adjust as needed. Date: 10/22/18. Pharmacist note:Trough of 6 is below target range. Dose increased to 1000mg q8h. Will continue to monitor and make adjustments as needed. ORIANA [facility] October 23, 2018 15:05
[2018-10-23] MEDS: NEPHRO-VIT TAB (NEPHROCAPS) PO SCH (21:51)
[2018-10-23] MEDS: TEMAZEPAM 15 MG CAP PO PRN (22:09)
[2018-10-24] VITALS (45 sets, daily range): BP systolic 50–140; BP diastolic 35–96
[2018-10-24] MEDS: PIPERACILLIN/TAZOBACTAM SOD 3.375 GM in D5W MINI-BAG PLUS 50 ML IV SCH ×4 (02:12→20:39)
[2018-10-24] MEDS: HYDROCORTISONE 100 MG/2 ML VIAL (J1720) IV SCH ×2 (02:12→14:49)
[2018-10-24 05:46] LABS: HEMATOCRIT 38.4 % (36.0-47.0); HEMOGLOBIN 12.9 g/dl (12.0-15.5); MEAN CORPUSCULAR HEMOGLOBIN 30.6 pg (27.0-33.0); MEAN CORPUSCULAR HGB CONC 33.6 g/dl (32.0-36.5); PLATELET COUNT, AUTOMATED 118 10^3/uL (150-450); RED BLOOD COUNT 4.22 10^6/uL (4.00-5.40); WHITE BLOOD COUNT 15.2 10^3/uL (4.0-10.0)
[2018-10-24] MEDS: VANCOMYCIN HCL 1,000 MG, VIAL MATE ADAPTER 1 EACH in D5W 250 ML IV SCH ×3 (05:53→22:32)
[2018-10-24 06:01] LABS: HEMOGLOBIN A1c 6.5 %
[2018-10-24 06:17] LABS: ALBUMIN 2.4 GM/DL (3.2-5.2); ALT/SGPT 22 U/L (12-78); BILIRUBIN,TOTAL 0.5 MG/DL (0.2-1.0); BLOOD UREA NITROGEN 3 MG/DL (7-18); CALCIUM LEVEL 6.9 MG/DL (8.8-10.2); CARBON DIOXIDE LEVEL 34 MEQ/L (21-32); CHLORIDE LEVEL 92 MEQ/L (98-107); CREATININE FOR GFR 0.34 MG/DL (0.55-1.30); GLOMERULAR FILTRATION RATE > 60.0 (>45); GLUCOSE, FASTING 100 MG/DL (70-100); MAGNESIUM LEVEL 1.3 MG/DL (1.8-2.4); POTASSIUM SERUM 2.6 MEQ/L (3.5-5.1); SODIUM LEVEL 131 MEQ/L (136-145); TOTAL PROTEIN 5.8 GM/DL (6.4-8.2)
[2018-10-24] MEDS ORDERED: POTASSIUM CHLORIDE 10 MEQ SR TABLET PO ONE ×3 (06:30→17:00)
[2018-10-24] MEDS ORDERED: MAG SULF 1GM/100ML (MAG RUN) 1 GM in APPROPRIATE DILUENT 1 EA IV ONE ×2 (07:00→07:45)
[2018-10-24] MEDS: HumaLOG INSULIN (NovoLOG) PER UNIT SC SCH ×4 (07:30→20:40)
[2018-10-24] MEDS ORDERED: KCL 10MEQ/100ML SWI (KRUN) 10 MEQ in APPROPRIATE DILUENT 1 EA IV SCH (07:45)
[2018-10-24] MEDS: HEPARIN SOD (PORCINE) 5000 UNITS/ML VIAL SQ SCH (09:00)
[2018-10-24] MEDS: ASPIRIN 81 MG ENTERIC TAB PO SCH (09:39)
[2018-10-24] MEDS: MULTIVITAMINS/MINERALS THERAP 1 TAB PO SCH (09:39)
[2018-10-24] MEDS: ZINC SULFATE 220 MG CAP PO SCH ×2 (09:39→20:39)
[2018-10-24] MEDS: FLUDROCORTISONE ACETATE 0.1 MG TAB PO SCH (09:39)
[2018-10-24] MEDS: THIAMINE 100 MG TAB PO SCH (09:40)
[2018-10-24] MEDS: CLOPIDOGREL 75 MG TAB PO SCH (09:40)
[2018-10-24] MEDS: FOLIC ACID 1 MG TAB PO SCH (09:40)
[2018-10-24] MEDS: ATORVASTATIN 20 MG TAB PO SCH (09:40)
[2018-10-24] MEDS: CitaloPRAM (CeleXA) 10 MG TABLET PO SCH (09:41)
[2018-10-24] MEDS ORDERED: NS 1,000 ML IV SCH (10:00)
--- NOTE | 2018-10-24 10:58 | IPNPDOC ---
Subjective Date Seen The patient was seen on 10/24/18. Subjective Chief Complaint/HPI Patient is feeling better, has a good appetite, and no distress General: Denies: ROS Unobtainable, Chills, Night Sweats, Fatigue, Malaise, Normal Appetite, Other Symptoms Constitutional: Denies: Chills, Fever, Malaise, Night Sweats, Weakness, Fatigue, Weight Loss, Lethargy, Other Eyes: Denies: Pain, Vision change, Conjunctivae inflammation, Eyelid inflammation, Redness, Other ENT: Denies: Head Aches, Ear Pain, Dysphagia, Sinus Congestion, Post Nasal Dri p, Sore Throat, Epistaxis, Other Symptoms Skin: Denies: Rash, Lesions, Breakdown Pulmonary: Denies: Dyspnea, Cough, Pleuritic Chest Pain, Other Symptoms Gastrointestinal: Denies: Nausea, Vomiting, Abdominal Pain, Diarrhea, Constipation, Melena, Hematochezia, Other Symptoms Genitourinary: Denies: Dysuria, Frequency, Incontinence, Hematuria, Retention, Other Symptoms Hematologic: Denies: Bruising, Bleeding Excessively, Petecchia, Purpura, Enlarged Lymph Nodes, Other Hematologic Endocrine: Denies: Polydipsia, Polyphagia, Polyuria, Heat Intolerance, Cold Intolerance, Other Endocrine Sx Musculoskeletal: Denies: Neck Pain, Back Pain, Shoulder Pain, Arm Pain, Hand Pain, Leg Pain, Foot Pain, Joint Pain, Muscle Pain, Spasms, Other Symptoms Neurological: Denies: Weakness, Numbness, Incoordination, Change in speech, Confusion, Seizures, Other Symptoms Psych: Denies: Mood Normal, Anxiety, Depression, Memory Issues, Thoughts of Self Harm, Anger, Thoughts of Harming Other, Other Psych Objective Physical Examination General Exam: Positive: Alert, Cooperative Eye Exam: Positive: PERRLA, Conjunctiva & lids normal ENT Exam: Positive: Atraumatic, Pharynx Normal Neck Exam: Positive: Supple, JVD, thyromegaly Chest Exam: Positive: Rhonchi (bilateral rhonchi is audible. No wheezing), Diminished Heart Exam: Positive: Rate Normal, Normal S1, Normal S2 Abdomen Exam: Positive: Normal bowel sounds, Soft, Tenderness Extremity Exam: Positive: Other (the redness of both feet with onychomycosis of nails noted) Skin Exam: Positive: Other skin issue (patient has a excoriated skin with in creased local temperature and redness on on the back of her both legs, sacrum and upper lower part of her back) Neuro Exam: Positive: Other (unable to examine as patient is critical) Psych Exam: Positive: Mental status NL A-FIB/CHADSVASC A-FIB History Current/History of A-Fib/PAF?: No Assessment /Plan Problems (1) Severe sepsis with septic shock Problem Text: Patient's WBC count is 14,000 today. Continue Reglan, Zosyn Levophed has been tapered off and DC'd Patient was hypertensive this morning, but blood pressures 125/70 after bolus of 1 L of normal saline , Hypertension, most likely secondary to volume depletion and mild malnourish ment/malnutrition/alcohol abuse , Potassium is still low 2.6. Patient received 40 mEq of KCl and the patient also received 2 L of magnesium sulfate. Secondary magnesium level of 1.3 . Heparin has been DC'd as patient's platelet level has decreased 118 and will restart bilateral SCDs for DVT prophylaxis (2) Hyponatremia Status: Acute Response to Treatment: Worse Problem Text: Serial serum sodium is improved very well, is 131 now Will restart normal saline at 75 mL per hour and monitor her serum sodium levels Is a progressive slow rise in sodium level, so we'll continue the same treatment (3) Severe protein-calorie malnutrition Problem Text: admitted secondary to poor diet and nutrition status and history of alcohol abuse Patient has been started on carbohydrate consistent diet Request dietary consultation. (4) Diabetes mellitus Status: Chronic Problem Text: Patient's hemoglobin A1c is 6.5 Glucophage was DC'd Likely has a borderline prediabetes To start regular diet. She is well-nourished Continue fingersticks blood sugar coverage (5) COPD (chronic obstructive pulmonary disease) Status: Chronic Problem Text: History of for COPD, which is chronic in nature secondary to smoking Patient will be started on NicoDerm And if she will be started on DuoNeb every 6 hours as patient does have rhonchi on clinical exam, but no wheezing Will also will do of smoking cessation counseling once patient is clinically s table (6) Alcohol abuse Status: Acute Problem Text: Hx of severe alcohol abuse Right now, patient is intoxicated does not require any medication for withdrawal, but eventually she will require Shiva protocol with the withdrawal. Once her once her upper level has decreased below the intoxication levels Seizure precaution has been ordered Ativan 1 mg IV every 2 hours when necessary for seizures are agitation. If the blood pressure is stable (7) Head injuries Status: Acute Problem Text: Head injury secondary to fall CT of the head is essentially negative does not show any hemorrhage or hematoma Neuro check every 4 hours Plan/VTE VTE Prophylaxis Ordered?: Yes VS, I&O, 24H, Fishbone Vital Signs/I&O Vital Signs Date Time Temp Pulse Resp B/P (MAP) Pulse Ox O2 Delivery O2 Flow Rate FiO2 10/24/18 06:30 80 125/67 (86) 98 2.0 10/24/18 04:00 98.4 18 10/21/18 18:46 Nasal Cannula I&O- Last 24 Hours up to 6 AM 10/24/18 06:00 Intake Total 5512.9 ml Output Total 4500 ml Balance 1012.9 ml Laboratory Data 24H LABS Laboratory Tests 2 10/23/18 12:13: Bedside Glucose (Misc Panel) 257H 10/23/18 14:06: Vancomycin Level Trough 13.4 10/23/18 17:54: Bedside Glucose (Misc Panel) 251H 10/23/18 21:21: Bedside Glucose (Misc Panel) 235H 10/24/18 05:26: Nucleated Red Blood Cells % (auto) 0.0, Anion Gap 5L, Glomerular Filtration Rate > 60.0, Estimated Mean Plasma Glucose 140H, Hemoglobin A1c 6.5, Blood Urea Nitrogen 3L, Creatinine 0.34L, Sodium Level 131L, Potassium Level 2.6*L, Chloride Level 92L, Carbon Dioxide Level 34H, Calcium Level 6.9L, Aspartate Amino Transf (AST/SGOT) 31, Alanine Aminotransferase (ALT/SGPT) 22, Alkaline Phosphatase 77, Total Bilirubin 0.5, Total Protein 5.8L, Albumin 2.4L, Magnesium Level 1.3L, Albumin/Globulin Ratio 0.71L CBC/BMP Laboratory Tests 10/24/18 05:26 Red Blood Count 4.22, Mean Corpuscular Volume 91.0, Mean Corpuscular Hemoglobin 30.6, Mean Corpuscular Hemoglobin Concent 33.6, Red Cell Distribution Width 14.1, Calcium Level 6.9 L, Aspartate Amino Transf (AST/SGOT) 31, Alanine Aminotransferase (ALT/SGPT) 22, Alkaline Phosphatase 77, Total Bilirubin 0.5, Total Protein 5.8 L, Albumin 2.4 L Microbiology Microbiology 10/21/18 Blood Culture - Preliminary, Resulted No Growth after 48 hours. All Specime... 10/21/18 Blood Culture - Preliminary, Resulted No Growth after 48 hours. All Specime... 10/21/18 Blood Culture - Preliminary, Resulted No Growth after 48 hours. All Specime... 10/22/18 Urine Culture - Final, Complete LILIAN MCHUGH MD October 24, 2018 10:58
[2018-10-24] MEDS: KCL 40MEQ in NS 1000ML 1,000 ML IV SCH ×2 (11:47→22:32)
[2018-10-24 15:55] LABS: BLOOD UREA NITROGEN 5 MG/DL (7-18); CALCIUM LEVEL 6.8 MG/DL (8.8-10.2); CARBON DIOXIDE LEVEL 37 MEQ/L (21-32); CHLORIDE LEVEL 93 MEQ/L (98-107); CREATININE FOR GFR 0.54 MG/DL (0.55-1.30); GLOMERULAR FILTRATION RATE > 60.0 (>45); GLUCOSE, FASTING 106 MG/DL (70-100); MAGNESIUM LEVEL 2.2 MG/DL (1.8-2.4); POTASSIUM SERUM 2.5 MEQ/L (3.5-5.1); SODIUM LEVEL 134 MEQ/L (136-145)
[2018-10-24] MEDS: NEPHRO-VIT TAB (NEPHROCAPS) PO SCH (20:39)
[2018-10-24] MEDS: TEMAZEPAM 15 MG CAP PO PRN (20:41)
[2018-10-25] VITALS (9 sets, daily range): BP systolic 93–142; BP diastolic 58–77
[2018-10-25] MEDS: HYDROCORTISONE 100 MG/2 ML VIAL (J1720) IV SCH (03:35)
[2018-10-25] MEDS: PIPERACILLIN/TAZOBACTAM SOD 3.375 GM in D5W MINI-BAG PLUS 50 ML IV SCH ×2 (03:35→08:32)
[2018-10-25 05:02] LABS: HEMATOCRIT 36.4 % (36.0-47.0); HEMOGLOBIN 11.9 g/dl (12.0-15.5); MEAN CORPUSCULAR HEMOGLOBIN 30.6 pg (27.0-33.0); MEAN CORPUSCULAR HGB CONC 32.7 g/dl (32.0-36.5); MEAN CORPUSCULAR VOLUME 93.6 fl (80.0-96.0); PLATELET COUNT, AUTOMATED 109 10^3/uL (150-450); RED BLOOD COUNT 3.89 10^6/uL (4.00-5.40); WHITE BLOOD COUNT 12.9 10^3/uL (4.0-10.0)
[2018-10-25 05:38] LABS: ALT/SGPT 16 U/L (12-78); BILIRUBIN,TOTAL 0.5 MG/DL (0.2-1.0); BLOOD UREA NITROGEN 5 MG/DL (7-18); CALCIUM LEVEL 6.5 MG/DL (8.8-10.2); CARBON DIOXIDE LEVEL 35 MEQ/L (21-32); CHLORIDE LEVEL 99 MEQ/L (98-107); CREATININE FOR GFR 0.37 MG/DL (0.55-1.30); GLOMERULAR FILTRATION RATE > 60.0 (>45); GLUCOSE, FASTING 102 MG/DL (70-100); MAGNESIUM LEVEL 1.7 MG/DL (1.8-2.4); POTASSIUM SERUM 3.3 MEQ/L (3.5-5.1); SODIUM LEVEL 135 MEQ/L (136-145); TOTAL PROTEIN 5.1 GM/DL (6.4-8.2)
[2018-10-25] MEDS: VANCOMYCIN HCL 1,000 MG, VIAL MATE ADAPTER 1 EACH in D5W 250 ML IV SCH (06:29)
[2018-10-25] MEDS: HumaLOG INSULIN (NovoLOG) PER UNIT SC SCH ×4 (08:30→20:37)
--- NOTE | 2018-10-25 08:51 | REP ---
Portable chest x-ray: Single view. History: Shortness of breath, decreased lung sounds. Comparison study: October 21, 2018. Findings: There is new consolidation and volume loss in the left upper lobe with slight upward retraction of the left hilus and air bronchograms on the left superiorly. An area of increased density persists in the right paratracheal region in the right upper lobe as well. Left-sided [id number] catheter is seen. Pleural angles are sharp. Heart is not enlarged. EKG and oxygen delivery lines are seen. Impression: New pleuroparenchymal opacity volume loss left upper lobe suggesting partial atelectasis. Stable changes on the right. Electronically Signed by Jefry Chau MD 10/25/2018 01:38 P
[2018-10-25] MEDS ORDERED: MAG SULF 1GM/100ML (MAG RUN) 1 GM in APPROPRIATE DILUENT 1 EA IV ONE (09:30)
[2018-10-25] MEDS ORDERED: POTASSIUM CHLORIDE 10 MEQ SR TABLET PO ONE (09:30)
[2018-10-25] MEDS: CitaloPRAM (CeleXA) 10 MG TABLET PO SCH (09:48)
[2018-10-25] MEDS: ATORVASTATIN 20 MG TAB PO SCH (09:48)
[2018-10-25] MEDS: MULTIVITAMINS/MINERALS THERAP 1 TAB PO SCH (09:48)
[2018-10-25] MEDS: THIAMINE 100 MG TAB PO SCH (09:48)
[2018-10-25] MEDS: CLOPIDOGREL 75 MG TAB PO SCH (09:48)
[2018-10-25] MEDS: FOLIC ACID 1 MG TAB PO SCH (09:49)
[2018-10-25] MEDS: ASPIRIN 81 MG ENTERIC TAB PO SCH (09:49)
--- NOTE | 2018-10-25 10:01 | IPNPDOC ---
Subjective Date Seen The patient was seen on 10/25/18. Subjective Chief Complaint/HPI Patient is alert, oriented 3, but but is somnolent as she got 1 dose of Ativan last night General: Reports: ROS Unobtainable Objective Physical Examination General Exam: Positive: Other (patient is somnolent but when aroused, she response to questions. She is oriented 3) Eye Exam: Positive: PERRLA, Conjunctiva & lids normal ENT Exam: Positive: Atraumatic, Pharynx Normal Neck Exam: Positive: Supple, JVD, thyromegaly Chest Exam: Positive: Rhonchi (bilateral rhonchi is audible. No wheezing), Diminished Heart Exam: Positive: Rate Normal, Normal S1, Normal S2 Abdomen Exam: Positive: Normal bowel sounds, Soft, Tenderness Extremity Exam: Positive: Normal pulses, Other (the redness of both feet with onychomycosis of nails noted) Skin Exam: Positive: Nl turgor and temperature, Other skin issue (patient has a excoriated skin with increased local temperature and redness on on the back of her both legs, sacrum and upper lower part of her back) Neuro Exam: Positive: Other (unable to examine as patient is critical) Psych Exam: Positive: Mental status NL A-FIB/CHADSVASC A-FIB History Current/History of A-Fib/PAF?: No Assessment /Plan Problems (1) Severe sepsis with septic shock Problem Text: WBC count is progressively decreasing. Will change IV antibiotics to by mouth Ceftin PT, OT eval to get patient out of bed once she is awake and alert Patient can be transferred to medical floor with with the remote telemetry , Potassium is still 3.3 and magnesium 1.7. Both will be corrected Patient's oral intake is very well Vital signs are stable at the current therapy (2) Hyponatremia Status: Acute Response to Treatment: Worse Problem Text: Serial serum sodium is improved very well, is 134 now Will restart normal saline at 75 mL per hour and monitor her serum sodium levels Is a progressive slow rise in sodium level, so we'll continue the same treatment (3) Severe protein-calorie malnutrition Problem Text: admitted secondary to poor diet and nutrition status and history of alcohol abuse Patient has been started on carbohydrate consistent diet Request dietary consultation. (4) Diabetes mellitus Status: Chronic Problem Text: Patient's hemoglobin A1c is 6.5 Glucophage was DC'd Likely has a borderline prediabetes To start regular diet. She is well-nourished Continue fingersticks blood sugar coverage (5) COPD (chronic obstructive pulmonary disease) Status: Chronic Problem Text: History of for COPD, which is chronic in nature secondary to smoking Patient will be started on NicoDerm And if she will be started on DuoNeb every 6 hours as patient does have rhonchi on clinical exam, but no wheezing Will also will do of smoking cessation counseling once patient is clinically stable (6) Alcohol abuse Status: Acute Problem Text: Hx of severe alcohol abuse Right now, patient is intoxicated does not require any medication for withdrawal, but eventually she will require Shiva protocol with the withdrawal. Once her once her upper level has decreased below the intoxication levels Seizure precaution has been ordered Ativan 1 mg IV every 2 hours when necessary for seizures are agitation. If the blood pressure is stable (7) Head injuries Status: Acute Problem Text: Head injury secondary to fall CT of the head is essentially negative does not show any hemorrhage or hematoma Neuro check every 4 hours Plan/VTE VTE Prophylaxis Ordered?: Yes VS, I&O, 24H, [facility] Vital Signs/I&O Vital Signs Date Time Temp Pulse Resp B/P (MAP) Pulse Ox O2 Delivery O2 Flow Rate FiO2 10/25/18 08:00 97.6 83 18 126/77 (93) 96 2.0 10/21/18 18:46 Nasal Cannula I&O- Last 24 Hours up to 6 AM 10/25/18 06:00 Intake Total 3410 ml Output Total 3050 ml Balance 360 ml Laboratory Data 24H LABS Laboratory Tests 2 10/24/18 11:46: Bedside Glucose (Misc Panel) 187H 10/24/18 15:13: Anion Gap 4L, Glomerular Filtration Rate > 60.0, Blood Urea Nitrogen 5#L, Creatinine 0.54#L, Sodium Level 134L, Potassium Level 2.5*L, Chloride Level 93L, Carbon Dioxide Level 37H, Calcium Level 6.8L, Magnesium Level 2.2 10/24/18 17:07: Bedside Glucose (Misc Panel) 223H 10/24/18 17:08: Bedside Glucose (Misc Panel) 224H 10/24/18 20:36: Bedside Glucose (Misc Panel) 291H 10/25/18 04:50: Nucleated Red Blood Cells % (auto) 0.0, Anion Gap 1L, Glomerular Filtration Rate > 60.0, Blood Urea Nitrogen 5L, Creatinine 0.37L, Sodium Level 135L, Potassium Level 3.3#L, Chloride Level 99, Carbon Dioxide Level 35H, Calcium Level 6.5L, Aspartate Amino Transf (AST/SGOT) 15, Alanine Aminotransferase (ALT/SGPT) 16, Alkaline Phosphatase 72, Total Bilirubin 0.5, Total Protein 5.1L, Albumin 2.0L, Magnesium Level 1.7L, Albumin/Globulin Ratio 0.65L 10/25/18 08:22: Bedside Glucose (Misc Panel) 142H CBC/BMP Laboratory Tests 10/24/18 15:13 Calcium Level 6.8 L 10/25/18 04:50 Calcium Level 6.5 L, Red Blood Count 3.89 L, Mean Corpuscular Volume 93.6, Mean Corpuscular Hemoglobin 30.6, Mean Corpuscular Hemoglobin Concent 32.7, Red Cell Distribution Width 14.6 H, Aspartate Amino Transf (AST/SGOT) 15, Alanine Aminotransferase (ALT/SGPT) 16, Alkaline Phosphatase 72, Total Bilirubin 0.5, Total Protein 5.1 L, Albumin 2.0 L Microbiology Microbiology 10/21/18 Blood Culture - Preliminary, Resulted No Growth after 72 hours. All specime... 10/21/18 Blood Culture - Preliminary, Resulted No Growth after 72 hours. All specime... 10/21/18 Blood Culture - Preliminary, Resulted No Growth after 72 hours. All specime... 10/22/18 Urine Culture - Final, Complete LILIAN MCHUGH MD October 25, 2018 10:00
[2018-10-25] MEDS: ZINC SULFATE 220 MG CAP PO SCH ×2 (12:40→20:35)
[2018-10-25] MEDS: FLUDROCORTISONE ACETATE 0.1 MG TAB PO SCH (12:41)
[2018-10-25] MEDS: CEFUROXIME 500 MG TAB PO SCH ×2 (12:41→20:35)
[2018-10-25] MEDS: KCL 40MEQ in NS 1000ML 1,000 ML IV SCH (14:59)
[2018-10-25] MEDS: NEPHRO-VIT TAB (NEPHROCAPS) PO SCH (20:35)
[2018-10-26] VITALS: BP 99/69
[2018-10-26] MEDS: KCL 40MEQ in NS 1000ML 1,000 ML IV SCH (02:28)
[2018-10-26 04:00] VITALS: BP 105/70
[2018-10-26] MEDS: HumaLOG INSULIN (NovoLOG) PER UNIT SC SCH ×4 (07:30→21:00)
[2018-10-26 08:00] VITALS: BP 94/53
[2018-10-26 08:33] LABS: HEMATOCRIT 42.8 % (36.0-47.0); MEAN CORPUSCULAR HEMOGLOBIN 31.6 pg (27.0-33.0); MEAN CORPUSCULAR HGB CONC 32.9 g/dl (32.0-36.5); PLATELET COUNT, AUTOMATED 159 10^3/uL (150-450); RED BLOOD COUNT 4.46 10^6/uL (4.00-5.40); WHITE BLOOD COUNT 16.8 10^3/uL (4.0-10.0)
[2018-10-26 08:45] LABS: HEMOGLOBIN 14.1 g/dl (12.0-15.5)
[2018-10-26 09:02] LABS: ALBUMIN 2.5 GM/DL (3.2-5.2); ALT/SGPT 19 U/L (12-78); BILIRUBIN,TOTAL 0.7 MG/DL (0.2-1.0); BLOOD UREA NITROGEN 4 MG/DL (7-18); CALCIUM LEVEL 8.3 MG/DL (8.8-10.2); CARBON DIOXIDE LEVEL 39 MEQ/L (21-32); CHLORIDE LEVEL 95 MEQ/L (98-107); CREATININE FOR GFR 0.35 MG/DL (0.55-1.30); GLOMERULAR FILTRATION RATE > 60.0 (>45); GLUCOSE, FASTING 75 MG/DL (70-100); POTASSIUM SERUM 3.4 MEQ/L (3.5-5.1); SODIUM LEVEL 136 MEQ/L (136-145); TOTAL PROTEIN 5.8 GM/DL (6.4-8.2)
[2018-10-26] MEDS: FLUDROCORTISONE ACETATE 0.1 MG TAB PO SCH (09:03)
[2018-10-26] MEDS: ZINC SULFATE 220 MG CAP PO SCH ×2 (09:03→20:42)
[2018-10-26] MEDS: CEFUROXIME 500 MG TAB PO SCH ×2 (09:03→20:42)
[2018-10-26] MEDS: MULTIVITAMINS/MINERALS THERAP 1 TAB PO SCH (09:03)
[2018-10-26] MEDS: ATORVASTATIN 20 MG TAB PO SCH (09:04)
[2018-10-26] MEDS: CLOPIDOGREL 75 MG TAB PO SCH (09:04)
[2018-10-26] MEDS: FOLIC ACID 1 MG TAB PO SCH (09:04)
[2018-10-26] MEDS: ASPIRIN 81 MG ENTERIC TAB PO SCH (09:04)
[2018-10-26] MEDS: THIAMINE 100 MG TAB PO SCH (09:04)
[2018-10-26] MEDS: CitaloPRAM (CeleXA) 10 MG TABLET PO SCH (09:04)
[2018-10-26] MEDS ORDERED: SLF 3 ML SYR IV PRN (09:15)
--- NOTE | 2018-10-26 10:12 | IPNPDOC ---
Subjective Date Seen The patient was seen on 10/26/18. Subjective Chief Complaint/HPI Patient had a normal BM also a 2 breakfast because she was hungry, ambulatory, in no apparent distress General: Denies: ROS Unobtainable, Chills, Night Sweats, Fatigue, Malaise, Normal Appetite, Other Symptoms Constitutional: Denies: Chills, Fever, Malaise, Night Sweats, Weakness, Fatigue, Weight Loss, Lethargy, Other Eyes: Denies: Pain, Vision change, Conjunctivae inflammation, Eyelid inflammation, Redness, Other ENT: Denies: Head Aches, Ear Pain, Dysphagia, Sinus Congestion, Post Nasal Drip, Sore Throat, Epistaxis, Other Symptoms Skin: Denies: Rash, Lesions, Jaundice, Bruising, Itching, Dry, Breakdown, Nail Changes, Other Pulmonary: Denies: Dyspnea, Cough, Pleuritic Chest Pain, Other Symptoms Cardiovascular: Denies: Chest Pain, Palpitations, Orthopnea, Paroxysmal Noc. Dyspnea, Edema, Lt Headedness, Other Symptoms Gastrointestinal: Denies: Nausea, Vomiting, Abdominal Pain, Diarrhea, Constipation, Melena, Hematochezia, Other Symptoms Genitourinary: Denies: Dysuria, Frequency, Incontinence, Hematuria, Retention, Other Symptoms Hematologic: Denies: Bruising, Bleeding Excessively, Petecchia, Purpura, Enlarged Lymph Nodes, Other Hematologic Endocrine: Denies: Polydipsia, Polyphagia, Polyuria, Heat Intolerance, Cold Intolerance, Other Endocrine Sx Musculoskeletal: Denies: Neck Pain, Back Pain, Shoulder Pain, Arm Pain, Hand Pain, Leg Pain, Foot Pain, Joint Pain, Muscle Pain, Spasms, Other Symptoms Neurological: Denies: Weakness, Numbness, Incoordination, Change in speech, Confusion, Seizures, Other Symptoms Objective Physical Examination General Exam: Positive: Other (patient is somnolent but when aroused, she response to questions. She is oriented 3) Eye Exam: Positive: PERRLA, Conjunctiva & lids normal ENT Exam: Positive: Atraumatic, Pharynx Normal Neck Exam: Positive: Supple, JVD, thyromegaly Chest Exam: Positive: Rhonchi (bilateral rhonchi is audible. No wheezing), Diminished Heart Exam: Positive: Rate Normal, Normal S1, Normal S2 Abdomen Exam: Positive: Normal bowel sounds, Soft, Tenderness Extremity Exam: Positive: Normal pulses, Other (the redness of both feet with onychomycosis of nails noted) Skin Exam: Positive: Nl turgor and temperature, Other skin issue (patient has a excoriated skin with increased local temperature and redness on on the back of her both legs, sacrum and upper lower part of her back) Neuro Exam: Positive: Other (unable to examine as patient is critical) Psych Exam: Positive: Mental status NL A-FIB/CHADSVASC A-FIB History Current/History of A-Fib/PAF?: No Assessment /Plan Problems (1) Severe sepsis with septic shock Status: Resolved Problem Text: DC IV fluids as patient is a good oral intake. No and electrolytes are within normal range Off levophed Antibiotics changed to by mouth . Labs in a.m. Possible discharge in a day or 2 (2) Hyponatremia Status: Resolved Response to Treatment: Worse Problem Text: Resolved with IV fluids Oral hydration (3) Severe protein-calorie malnutrition Status: Chronic Problem Text: Patient is a good appetite and eating very well Continue with the supportive care (4) Diabetes mellitus Status: Chronic Problem Text: Patient's hemoglobin A1c is 6.5 Glucophage was DC'd Likely has a borderline prediabetes To start regular diet. She is well-nourished Continue fingersticks blood sugar coverage (5) COPD (chronic obstructive pulmonary disease) Status: Chronic Problem Text: History of for COPD, which is chronic in nature secondary to smoking Patient will be started on NicoDerm And if she will be started on DuoNeb every 6 hours as patient does have rhonchi on clinical exam, but no wheezing Will also will do of smoking cessation counseling once patient is clinically stable (6) Alcohol abuse Status: Acute Problem Text: Hx of severe alcohol abuse Right now, patient is intoxicated does not require any medication for withdrawal, but eventually she will require Shiva protocol with the withdrawal. Once her once her upper level has decreased below the intoxication levels Seizure precaution has been ordered Ativan 1 mg IV every 2 hours when necessary for seizures are agitation. If the blood pressure is stable (7) Head injuries Status: Acute Problem Text: Head injury secondary to fall CT of the head is essentially negative does not show any hemorrhage or hematoma Neuro check every 4 hours Plan/VTE VTE Prophylaxis Ordered?: Yes VS, I&O, 24H, Fishbone Vital Signs/I&O Vital Signs Date Time Temp Pulse Resp B/P (MAP) Pulse Ox O2 Delivery O2 Flow Rate FiO2 10/26/18 04:00 98.2 102 16 105/70 (82) 96 3.0 10/21/18 18:46 Nasal Cannula I&O- Last 24 Hours up to 6 AM 10/26/18 06:00 Intake Total 2460 ml Output Total 1175 ml Balance 1285 ml Laboratory Data 24H LABS Laboratory Tests 2 10/25/18 12:30: Bedside Glucose (Misc Panel) 181H 10/25/18 17:36: Bedside Glucose (Misc Panel) 134H 10/25/18 20:37: Bedside Glucose (Misc Panel) 134H 10/26/18 07:47: Bedside Glucose (Misc Panel) 85 10/26/18 08:05: Nucleated Red Blood Cells % (auto) 0.0, Anion Gap 2L, Glomerular Filtration Rate > 60.0, Blood Urea Nitrogen 4L, Creatinine 0.35L, Sodium Level 136, Potassium Level 3.4L, Chloride Level 95L, Carbon Dioxide Level 39H, Calcium Level 8.3#L, Aspartate Amino Transf (AST/SGOT) 13, Alanine Aminotransferase (ALT/SGPT) 19, Alkaline Phosphatase 73, Total Bilirubin 0.7, Total Protein 5.8L, Albumin 2.5#L, Albumin/Globulin Ratio 0.76L CBC/BMP Laboratory Tests 10/26/18 08:05 Red Blood Count 4.46, Mean Corpuscular Volume 96.0, Mean Corpuscular Hemoglobin 31.6, Mean Corpuscular Hemoglobin Concent 32.9, Red Cell Distribution Width 14.7 H, Calcium Level 8.3 #L, Aspartate Amino Transf (AST/SGOT) 13, Alanine Pisano otransferase (ALT/SGPT) 19, Alkaline Phosphatase 73, Total Bilirubin 0.7, Total Protein 5.8 L, Albumin 2.5 #L Microbiology Microbiology 10/21/18 Blood Culture - Preliminary, Resulted No Growth after 72 hours. All specime... 10/21/18 Blood Culture - Preliminary, Resulted No Growth after 72 hours. All specime... 10/21/18 Blood Culture - Preliminary, Resulted No Growth after 72 hours. All specime... 10/22/18 Urine Culture - Final, Complete LILIAN MCHUGH MD October 26, 2018 10:12
[2018-10-26] MEDS ORDERED: POTASSIUM CHLORIDE 10 MEQ SR TABLET PO ONE (10:15)
[2018-10-26 12:00] VITALS: BP 100/62
[2018-10-26] MEDS: SLF 3 ML SYR IV SCH ×2 (14:00→20:43)
[2018-10-26 14:50] VITALS: BP 106/74
[2018-10-26] MEDS: NEPHRO-VIT TAB (NEPHROCAPS) PO SCH (20:42)
[2018-10-26 22:00] VITALS: BP 102/49
[2018-10-27] MEDS: SLF 3 ML SYR IV SCH ×3 (05:44→21:17)
[2018-10-27 06:00] VITALS: BP 100/53
[2018-10-27 06:29] LABS: HEMATOCRIT 42.7 % (36.0-47.0); HEMOGLOBIN 14.2 g/dl (12.0-15.5); MEAN CORPUSCULAR HEMOGLOBIN 30.3 pg (27.0-33.0); MEAN CORPUSCULAR HGB CONC 33.3 g/dl (32.0-36.5); PLATELET COUNT, AUTOMATED 181 10^3/uL (150-450); RED BLOOD COUNT 4.69 10^6/uL (4.00-5.40); WHITE BLOOD COUNT 15.9 10^3/uL (4.0-10.0)
[2018-10-27 07:00] LABS: ALBUMIN 2.5 GM/DL (3.2-5.2); ALT/SGPT 19 U/L (12-78); BILIRUBIN,TOTAL 0.8 MG/DL (0.2-1.0); BLOOD UREA NITROGEN 7 MG/DL (7-18); CALCIUM LEVEL 8.3 MG/DL (8.8-10.2); CARBON DIOXIDE LEVEL 38 MEQ/L (21-32); CHLORIDE LEVEL 88 MEQ/L (98-107); CREATININE FOR GFR 0.34 MG/DL (0.55-1.30); GLOMERULAR FILTRATION RATE > 60.0 (>45); GLUCOSE, FASTING 82 MG/DL (70-100); MAGNESIUM LEVEL 1.3 MG/DL (1.8-2.4); POTASSIUM SERUM 2.8 MEQ/L (3.5-5.1); SODIUM LEVEL 132 MEQ/L (136-145); TOTAL PROTEIN 6.1 GM/DL (6.4-8.2)
[2018-10-27] MEDS: HumaLOG INSULIN (NovoLOG) PER UNIT SC SCH ×4 (07:30→20:35)
[2018-10-27] MEDS: ZINC SULFATE 220 MG CAP PO SCH ×2 (09:21→20:34)
[2018-10-27] MEDS: POTASSIUM CHLORIDE 10 MEQ SR TABLET PO SCH ×3 (09:21→20:35)
[2018-10-27] MEDS: CitaloPRAM (CeleXA) 10 MG TABLET PO SCH (09:21)
[2018-10-27] MEDS: MULTIVITAMINS/MINERALS THERAP 1 TAB PO SCH (09:21)
[2018-10-27] MEDS: ATORVASTATIN 20 MG TAB PO SCH (09:22)
[2018-10-27] MEDS: FLUDROCORTISONE ACETATE 0.1 MG TAB PO SCH (09:22)
[2018-10-27] MEDS: ASPIRIN 81 MG ENTERIC TAB PO SCH (09:22)
[2018-10-27] MEDS: FOLIC ACID 1 MG TAB PO SCH (09:22)
[2018-10-27] MEDS: CLOPIDOGREL 75 MG TAB PO SCH (09:22)
[2018-10-27] MEDS: THIAMINE 100 MG TAB PO SCH (09:22)
[2018-10-27] MEDS: CEFUROXIME 500 MG TAB PO SCH ×2 (09:22→20:34)
[2018-10-27] MEDS: MAG SULF 1GM/100ML (MAG RUN) 1 GM in APPROPRIATE DILUENT 1 EA IV SCH ×2 (10:31→11:52)
[2018-10-27] MEDS ORDERED: NS 500 ML IV ONE (11:15)
[2018-10-27] MEDS: NS 1,000 ML IV SCH (11:53)
[2018-10-27] MEDS ORDERED: NS 1,000 ML IV SCH (13:45)
--- NOTE | 2018-10-27 16:10 | IPNPDOC ---
Date Seen The patient was seen on 10/27/18. Progress Note SUBJECTIVE: Patient was seen and examined this morning. She currently denies any complaints. She is not conversive. OBJECTIVE PHYSICAL EXAMINATION: VITAL SIGNS: Please see below. GENERAL: awake, alert and oriented. Lying in bed comfortably in no acute distress HEENT: Multiple excoriations on the left side of the patients forehead. Eyes are nonicteric. Trachea is midline. Dentition is poor. CARDIOVASCULAR: Normal S1, S2. Regular rate and rhythm. No clicks, rubs, or murmurs. RESPIRATORY: Clear vesicular breath sounds bilaterally with good respiratory effort. No wheezes, rhonci, or rales. ABDOMINAL: Soft, nondistended. Nontender to palpation. No rebound tenderness or guarding. EXTREMITIES: No edema. Pulses are full and equal in bilateral upper and lower extremitiess NEUROLOGICAL: No focal neurological deficits PSYCHOLOGICAL: Flat affect. Poverty of speech. Appropriate mood. LABORATORY DATA, IMAGING STUDIES, MICROBIOLOGY: Please see below. DVT prophylaxis ordered?: ASSESSMENT AND PLAN: This is a -year-old [RACE] [GENDER] with . PROBLEMS: 1. Severe Sepsis w/ septic Shock -Resolved. -Patient is continued on oral antibiotics. Will discontinue Ceftin tomorrow 2. Adrenal Insufficiency -Patient is believed to have a degree of adrenal insufficiency. She is continued on Fludrocortisone 0.1mg daily -Adrenal insufficiency could explain her hyponatremia however, it would not explain her hypokalemia. 3. Hyponatremia -Patient has been hyponatremic. She also has soft blood pressures. Will give 500cc bolus NS and continue on NS at 75ml/hr -Will continue to monitor 4. Hypokalemia -Likely secondary to her malnutrition/alcohol abuse. -Will continue to monitor and replete PRN 5. COPD -Currently stable -Continue Duonebs q6h 6. Alcohol Abuse -Multivitamins, Thiamine A-FIB/CHADSVASC A-FIB History Current/History of A-Fib/PAF?: No VS, I&O, 24H, Fishbone Vital Signs/I&O Vital Signs Date Time Temp Pulse Resp B/P (MAP) Pulse Ox O2 Delivery O2 Flow Rate FiO2 10/27/18 09:00 2.0 10/27/18 06:00 98.0 102 20 100/53 (69) 96 10/21/18 18:46 Nasal Cannula I&O- Last 24 Hours up to 6 AM 10/27/18 06:00 Intake Total 3370 ml Output Total 1875 ml Balance 1495 ml Laboratory Data 24H LABS Laboratory Tests 2 10/26/18 16:08: Bedside Glucose (Misc Panel) 144H 10/26/18 20:51: Bedside Glucose (Misc Panel) 150H 10/27/18 05:30: Nucleated Red Blood Cells % (auto) 0.0, Anion Gap 6L, Glomerular Filtration Rate > 60.0, Blood Urea Nitrogen 7#, Creatinine 0.34L, Sodium Level 132L, Potassium Level 2.8*L, Chloride Level 88L, Carbon Dioxide Level 38H, Calcium Level 8.3L, Aspartate Amino Transf (AST/SGOT) 17, Alanine Aminotransferase (ALT/SGPT) 19, Alkaline Phosphatase 76, Total Bilirubin 0.8, Total Protein 6.1L, Albumin 2.5L, Magnesium Level 1.3L, Albumin/Globulin Ratio 0.69L 10/27/18 12:04: Bedside Glucose (Misc Panel) 132H 10/27/18 15:40: Bedside Glucose (Misc Panel) 160H CBC/BMP Laboratory Tests 10/27/18 05:30 Red Blood Count 4.69, Mean Corpuscular Volume 91.0, Mean Corpuscular Hemoglobin 30.3, Mean Corpuscular Hemoglobin Concent 33.3, Red Cell Distribution Width 14.4, Calcium Level 8.3 L, Aspartate Amino Transf (AST/SGOT) 17, Alanine Aminotransferase (ALT/SGPT) 19, Alkaline Phosphatase 76, Total Bilirubin 0.8, Total Protein 6.1 L, Albumin 2.5 L Microbiology Microbiology 10/21/18 Blood Culture - Final, Complete NO GROWTH AFTER 5 DAYS 10/21/18 Blood Culture - Final, Complete NO GROWTH AFTER 5 DAYS 10/21/18 Blood Culture - Final, Complete NO GROWTH AFTER 5 DAYS 10/22/18 Urine Culture - Final, Complete GME ATTESTATION GME ATTESTATION My faculty preceptor for this patient encounter was physically present during the encounter and was fully available. All aspects of the patient interview, examination, medical decision making process, and medical care plan development were reviewed and approved by the faculty preceptor. The faculty preceptor is aware and concurs with the plan as stated in the body of this note and will attest to such by his/her cosignature. ATTENDING NOTE I saw and evaluated the patient. I agree with the findings and plan of care as documented in the resident's note MISSY CAMPBELL DO October 27, 2018 16:10 LIBRADO BEAUCHAMP MD October 29, 2018 09:10
[2018-10-27] MEDS: NEPHRO-VIT TAB (NEPHROCAPS) PO SCH (20:34)
[2018-10-27 22:00] VITALS: BP 94/54
[2018-10-28] MEDS: NS 1,000 ML IV SCH ×2 (02:30→17:01)
[2018-10-28 06:00] VITALS: BP 101/52
[2018-10-28] MEDS: SLF 3 ML SYR IV SCH ×3 (06:12→20:40)
[2018-10-28 06:53] LABS: HEMATOCRIT 38.3 % (36.0-47.0); HEMOGLOBIN 12.8 g/dl (12.0-15.5); MEAN CORPUSCULAR HEMOGLOBIN 30.7 pg (27.0-33.0); MEAN CORPUSCULAR HGB CONC 33.4 g/dl (32.0-36.5); MEAN CORPUSCULAR VOLUME 91.8 fl (80.0-96.0); PLATELET COUNT, AUTOMATED 216 10^3/uL (150-450); RED BLOOD COUNT 4.17 10^6/uL (4.00-5.40); WHITE BLOOD COUNT 14.5 10^3/uL (4.0-10.0)
[2018-10-28 07:13] LABS: BLOOD UREA NITROGEN 7 MG/DL (7-18); CALCIUM LEVEL 7.7 MG/DL (8.8-10.2); CARBON DIOXIDE LEVEL 32 MEQ/L (21-32); CHLORIDE LEVEL 99 MEQ/L (98-107); CREATININE FOR GFR 0.34 MG/DL (0.55-1.30); GLOMERULAR FILTRATION RATE > 60.0 (>45); GLUCOSE, FASTING 84 MG/DL (70-100); MAGNESIUM LEVEL 1.9 MG/DL (1.8-2.4); POTASSIUM SERUM 3.7 MEQ/L (3.5-5.1); SODIUM LEVEL 134 MEQ/L (136-145)
[2018-10-28] MEDS: HumaLOG INSULIN (NovoLOG) PER UNIT SC SCH ×4 (07:28→20:39)
[2018-10-28] MEDS ORDERED: NS 500 ML IV ONE ×2 (09:15→10:00)
[2018-10-28] MEDS: FLUDROCORTISONE ACETATE 0.1 MG TAB PO SCH (09:37)
[2018-10-28 10:02] VITALS: BP 80/50
[2018-10-28] MEDS: CEFUROXIME 500 MG TAB PO SCH ×2 (10:46→20:39)
[2018-10-28] MEDS: ZINC SULFATE 220 MG CAP PO SCH ×2 (10:46→20:39)
[2018-10-28] MEDS: FOLIC ACID 1 MG TAB PO SCH (10:47)
[2018-10-28] MEDS: POTASSIUM CHLORIDE 10 MEQ SR TABLET PO SCH ×3 (10:48→20:39)
[2018-10-28] MEDS: CLOPIDOGREL 75 MG TAB PO SCH (10:49)
[2018-10-28] MEDS: CitaloPRAM (CeleXA) 10 MG TABLET PO SCH (10:49)
[2018-10-28] MEDS: ATORVASTATIN 20 MG TAB PO SCH (10:49)
[2018-10-28] MEDS: ASPIRIN 81 MG ENTERIC TAB PO SCH (10:50)
[2018-10-28] MEDS: MULTIVITAMINS/MINERALS THERAP 1 TAB PO SCH (10:50)
[2018-10-28] MEDS: THIAMINE 100 MG TAB PO SCH (10:50)
--- NOTE | 2018-10-28 10:53 | IPNPDOC ---
Text Note Date of Service The patient was seen on 10/28/18. NOTE Subjective: Patient is a 62 year old female with a PMHx of HTN, CAD, NIDDM2, DLP, Hx of TIAs, COPD, Migraine Headaches, Schizophrenia / Psychosis who presented to the ER after she fell and was down for about 3 days. In the emergency room, patient was found to be hypotensive and hyponatremic. Patient was admitted to hospitalist service for further evaluation and treatment. Nephrology was called on consultation. Patient was seen and examined at the bedside. Currently patient overnight. She has not experienced any problems. . She denies chest pain, shortness of breath or palpitations. Denies nausea, vomiting, abdominal pain or urinary discomfort. Nursing staff is indicated that the patient has been having low blood pressures this morning. Systolics were noted to be in 80s. Currently, patient does not appear in any symptoms of lightheadedness, dizziness or chest pain. Objective: Vitals (See below) General: Lying in bed, no acute distress, comfortable, Awake / Alert and Oriented HEENT: Mild ecchymosis on L forehead CVS: RRR, +S1S2 Lungs: Fair air entry b/l, -w/r/r Abdomen: Soft, ND, NT Extremities: - Edema, - Calf tenderness Assessment and plan: s/p shock - suspected to be 2/2 septic shock, possibly 2/2 hypovolemic, possibly 2/2 adrenal insufficiency - Currently patient is asymptomatic - BP this morning has been noted to be low; no tachycardia noted - Lactic acid is normal - UA 10/21: No signs of infection - CXR 10/21: Right upper lobe pleuroparenchymal fibrosis seen. [id number] catheter. Otherwise no acute disease. - CT abdomen / pelvis 10/21: Complex but stable cysts, left kidney. Mild bilateral intrarenal hydronephrosis, new when compared with the March 05 016 study. No etiology seen. The urinary bladder is somewhat distended. No stone disease is seen. No mass lesion is observed. Air and fluid-filled loops of large and small bowel, question mild ileus. 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 SMA is patent. PUNEET is patent. Status post hysterectomy and appendectomy. - Will check cortisol level - c/w Cefuroxime; s/p Vancomycin and Zosyn (Antibiotic day #8) - c/w Fludrocortisone Adrenal insufficiency - Patient has a history of adrenal insufficiency and has been on fludrocortisone - Will repeat cortisol level Facial trauma - Patient has some ecchymosis on left forehead. 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 Vascular calcification and small vessel changes. No acute intracranial abnormality. - CT cervical spine 10/21: Degenerative spondylosis changes and vascular calcification. Otherwise negative CT study of the cervical spine without contrast. No fracture seen. - c/w wound care Hyponatremia - Has improved significantly - Nephrology has been on consultation; appreciate their input Hypokalemia - s/p repletion COPD - no evidence of exacerbation - c/w inhaled therapy as ordered Hx of Alcohol abuse - c/w Thiamine, Folate, MVI CAD - c/w Plavix, ASA, Atorvastatin DLP - c/w Atorvastatin NIDDM2 - c/w ISS Hx of TIAs - c/w Plavix, ASA, Atorvastatin Migraine Headache - Currently not experiencing any pain Tobacco dependence - Advised smoking cessation Schizophrenia / Psychosis / Depression / Insomnia - c/w Citalopram DVT prophylaxis - Will start Lovenox VS,Fishbone, I+O VS, Fishbone, I+O Laboratory Tests 10/28/18 06:03 Red Blood Count 4.17, Mean Corpuscular Volume 91.8, Mean Corpuscular Hemoglobin 30.7, Mean Corpuscular Hemoglobin Concent 33.4, Red Cell Distribution Width 14.6 H, Calcium Level 7.7 L Vital Signs Date Time Temp Pulse Resp B/P (MAP) Pulse Ox O2 Delivery O2 Flow Rate FiO2 10/28/18 10:02 80/50 (60) 10/28/18 06:00 98.4 97 18 93 2.0 I&O- Last 24 Hours up to 6 AM 10/28/18 05:59 Intake Total 1210 ml Balance 1210 ml PHILLIP ALEJANDRO MD October 28, 2018 10:53
[2018-10-28] MEDS ORDERED: ENOXAPARIN 40 MG/0.4 ML SYRINGE (J1650) SC ONE (11:15)
[2018-10-28] MEDS ORDERED: HYDROCORTISONE 100 MG/2 ML VIAL (J1720) IV ONE (11:15)
[2018-10-28 13:03] VITALS: BP 90/68
[2018-10-28 13:54] VITALS: BP 85/55
[2018-10-28 14:02] VITALS: BP_SYST 108
[2018-10-28 14:28] LABS: AMORPHOUS SEDIMENT SMALL (NEGATIVE); APPEARANCE, URINE HAZY (CLEAR); BACTERIA, URINE AUTO 1+ (NEGATIVE); BILIRUBIN, URINE AUTO NEGATIVE (NEGATIVE); BLOOD, URINE BLOOD NEGATIVE (NEGATIVE); COLOR, URINE YELLOW (YELLOW); GLUCOSE, URINE (UA) AUTO 1+ mg/dL (NEGATIVE); KETONE, URINE AUTO NEGATIVE (NEGATIVE); LEUKOCYTE ESTERASE, URINE AUTO NEGATIVE (NEGATIVE); MUCUS, URINE SMALL (NEGATIVE); NITRITE, URINE AUTO NEGATIVE (NEGATIVE); PROTEIN, URINE AUTO NEGATIVE (NEGATIVE); RBC, URINE AUTO 8 /HPF (0-3); SQUAMOUS EPITHELIAL CELL UR AU 1 /HPF (0-6); UROBILINOGEN, URINE AUTO 0.2 mg/dL (0.0-2.0); WBC, URINE AUTO 0 /HPF (0-3)
[2018-10-28 14:47] LABS: CHLORIDE,RANDOM URINE 214 MEQ/L; CREATININE,RANDOM URINE 22.4 MG/DL; POTASSIUM RANDOM URINE 58.3 MEQ/L; SODIUM,RANDOM URINE 145 MEQ/L
[2018-10-28] MEDS: NEPHRO-VIT TAB (NEPHROCAPS) PO SCH (20:39)
[2018-10-28] MEDS: HYDROCORTISONE 100 MG/2 ML VIAL (J1720) IV SCH (20:39)
[2018-10-28 22:00] VITALS: BP 133/58
[2018-10-29] MEDS: HYDROCORTISONE 100 MG/2 ML VIAL (J1720) IV SCH ×3 (04:55→20:30)
[2018-10-29] MEDS: NS 1,000 ML IV SCH (04:56)
[2018-10-29] MEDS: SLF 3 ML SYR IV SCH ×3 (05:15→20:32)
[2018-10-29 06:00] VITALS: BP 150/66
[2018-10-29 06:22] LABS: HEMATOCRIT 36.8 % (36.0-47.0); HEMOGLOBIN 12.4 g/dl (12.0-15.5); MEAN CORPUSCULAR HGB CONC 33.7 g/dl (32.0-36.5); MEAN CORPUSCULAR VOLUME 94.8 fl (80.0-96.0); PLATELET COUNT, AUTOMATED 233 10^3/uL (150-450); RED BLOOD COUNT 3.88 10^6/uL (4.00-5.40); WHITE BLOOD COUNT 15.3 10^3/uL (4.0-10.0)
[2018-10-29 06:43] LABS: BLOOD UREA NITROGEN 10 MG/DL (7-18); CALCIUM LEVEL 7.9 MG/DL (8.8-10.2); CARBON DIOXIDE LEVEL 30 MEQ/L (21-32); CHLORIDE LEVEL 103 MEQ/L (98-107); GLOMERULAR FILTRATION RATE > 60.0 (>45); GLUCOSE, FASTING 127 MG/DL (70-100); MAGNESIUM LEVEL 1.7 MG/DL (1.8-2.4); SODIUM LEVEL 137 MEQ/L (136-145)
[2018-10-29] MEDS ORDERED: MAG SULF 1GM/100ML (MAG RUN) 1 GM in APPROPRIATE DILUENT 1 EA IV ONE (07:15)
[2018-10-29] MEDS: ATORVASTATIN 20 MG TAB PO SCH (08:11)
[2018-10-29] MEDS: THIAMINE 100 MG TAB PO SCH (08:11)
[2018-10-29] MEDS: FOLIC ACID 1 MG TAB PO SCH (08:11)
[2018-10-29] MEDS: ASPIRIN 81 MG ENTERIC TAB PO SCH (08:12)
[2018-10-29] MEDS: ZINC SULFATE 220 MG CAP PO SCH ×2 (08:12→20:30)
[2018-10-29] MEDS: FLUDROCORTISONE ACETATE 0.1 MG TAB PO SCH (08:12)
[2018-10-29] MEDS: CitaloPRAM (CeleXA) 10 MG TABLET PO SCH (08:12)
[2018-10-29] MEDS: CEFUROXIME 500 MG TAB PO SCH (08:12)
[2018-10-29] MEDS: MULTIVITAMINS/MINERALS THERAP 1 TAB PO SCH (08:12)
[2018-10-29] MEDS: POTASSIUM CHLORIDE 10 MEQ SR TABLET PO SCH ×3 (08:12→20:31)
[2018-10-29] MEDS: HumaLOG INSULIN (NovoLOG) PER UNIT SC SCH ×4 (08:14→20:31)
[2018-10-29] MEDS: CLOPIDOGREL 75 MG TAB PO SCH (08:14)
[2018-10-29] MEDS: ENOXAPARIN 40 MG/0.4 ML SYRINGE (J1650) SC SCH (08:15)
--- NOTE | 2018-10-29 10:42 | IPNPDOC ---
Text Note Date of Service The patient was seen on 10/29/18. NOTE Subjective: Patient is a 62 year old female with a PMHx of HTN, CAD, NIDDM2, DLP, Hx of TIAs, COPD, Migraine Headaches, Schizophrenia / Psychosis who presented to the ER after she fell and was down for about 3 days. In the emergency room, patient was found to be hypotensive and hyponatremic. Patient was admitted to hospitalist service for further evaluation and treatment. Nephrology was called on consultation. Patient was seen and examined at the bedside. Patient has not experienced any problems overnight. Over last couple days. Patient has been refusing to work with physical therapy. I have indicated to her that the last recommendation was for continued rehabilitation. Currently, patient does not experience lightheadedness or dizziness. Nursing staff has reported that her blood pressures have improved significantly compared to yesterday. Denies any nausea or vomiting, abdominal pain, diarrhea, or urinary discomfort. Objective: Vitals (See below) General: Lying in bed, no acute distress, comfortable, Awake / Alert and Oriented HEENT: Mild ecchymosis on L forehead CVS: RRR, +S1S2 Lungs: Air entry is fair bilaterally, without auscultated evidence of rhonchi, rales or wheezing Abdomen: Soft, nondistended, without tenderness Extremities: No evidence of lower extremity edema, - Calf tenderness Assessment and plan: s/p shock - suspected to be 2/2 septic shock, possibly 2/2 hypovolemic, possibly 2/2 adrenal insufficiency - Currently patient is asymptomatic - BP has improved - Lactic acid is normal - UA 10/21: No signs of infection - CXR 10/21: Right upper lobe pleuroparenchymal fibrosis seen. Phkvbm-R-Hkde catheter. Otherwise no acute disease. - CT abdomen / pelvis 10/21: Complex but stable cysts, left kidney. Mild bilateral intrarenal hydronephrosis, new when compared with the March 05, 2016 study. No etiology seen. The urinary bladder is somewhat distended. No stone disease is seen. No mass lesion is observed. Air and fluid-filled loops of large and small bowel, question mild ileus. 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 SMA is patent. PUNEET is patent. Status post hysterectomy and appendectomy. - Will DC Cefuroxime; s/p Vancomycin and Zosyn (Completed antibiotic course of 8 days) - c/w Fludrocortisone Adrenal insufficiency - Patient has a history of adrenal insufficiency and has been on fludrocortisone - Was started on stress doses of Hydrocortisone IV yesterday (10/28) - BP has improved significantly; will taper dose today Facial trauma - Patient has some ecchymosis on left forehead. 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 Vascular calcification and small vessel changes. No acute intracranial abnormality. - CT cervical spine 10/21: Degenerative spondylosis changes and vascular calcification. Otherwise negative CT study of the cervical spine without c ontrast. No fracture seen. - c/w wound care s/p Hyponatremia - Has improved significantly - Nephrology has been on consultation; appreciate their input s/p Hypokalemia COPD - no evidence of exacerbation - c/w inhaled therapy as ordered Hx of Alcohol abuse - c/w Thiamine, Folate, MVI CAD - c/w Plavix, ASA, Atorvastatin DLP - c/w Atorvastatin NIDDM2 with Hyperglycemia and Hypoglycemia - c/w ISS Hx of TIAs - c/w Plavix, ASA, Atorvastatin Migraine Headache - Currently not experiencing any pain Tobacco dependence - Advised smoking cessation Schizophrenia / Psychosis / Depression / Insomnia - c/w Citalopram DVT prophylaxis - c/w Lovenox Disposition: - Will likely need rehabilitation - will c/w PT for updated disposition recommendations VS,Lisa, I+O VS, Lisa, I+O Laboratory Tests 10/29/18 05:49 Red Blood Count 3.88 L, Mean Corpuscular Volume 94.8, Mean Corpuscular Hemoglobin 32.0, Mean Corpuscular Hemoglobin Concent 33.7, Red Cell Distribution Width 14.5, Calcium Level 7.9 L Vital Signs Date Time Temp Pulse Resp B/P (MAP) Pulse Ox O2 Delivery O2 Flow Rate FiO2 10/29/18 09:11 91 10/29/18 06:00 97.8 88 18 150/66 (94) 2.0 I&O- Last 24 Hours up to 6 AM 10/29/18 06:00 Intake Total 1380 ml Balance 1380 ml PHILLIP ALEJANDRO MD October 29, 2018 10:42
[2018-10-29 14:00] VITALS: BP 142/63
[2018-10-29] MEDS: NEPHRO-VIT TAB (NEPHROCAPS) PO SCH (20:30)
[2018-10-29 22:00] VITALS: BP 155/67
[2018-10-30] MEDS: HYDROCORTISONE 100 MG/2 ML VIAL (J1720) IV SCH ×2 (04:44→12:00)
[2018-10-30] MEDS: SLF 3 ML SYR IV SCH ×3 (05:01→20:08)
[2018-10-30 06:00] VITALS: BP 139/81
[2018-10-30 06:07] LABS: HEMATOCRIT 38.1 % (36.0-47.0); HEMOGLOBIN 12.8 g/dl (12.0-15.5); MEAN CORPUSCULAR HEMOGLOBIN 32.1 pg (27.0-33.0); MEAN CORPUSCULAR HGB CONC 33.6 g/dl (32.0-36.5); MEAN CORPUSCULAR VOLUME 95.5 fl (80.0-96.0); PLATELET COUNT, AUTOMATED 262 10^3/uL (150-450); RED BLOOD COUNT 3.99 10^6/uL (4.00-5.40); WHITE BLOOD COUNT 16.4 10^3/uL (4.0-10.0)
[2018-10-30 06:34] LABS: BLOOD UREA NITROGEN 11 MG/DL (7-18); CALCIUM LEVEL 8.2 MG/DL (8.8-10.2); CARBON DIOXIDE LEVEL 31 MEQ/L (21-32); CHLORIDE LEVEL 98 MEQ/L (98-107); CREATININE FOR GFR 0.37 MG/DL (0.55-1.30); GLOMERULAR FILTRATION RATE > 60.0 (>45); GLUCOSE, FASTING 94 MG/DL (70-100); MAGNESIUM LEVEL 1.8 MG/DL (1.8-2.4); POTASSIUM SERUM 3.7 MEQ/L (3.5-5.1); SODIUM LEVEL 134 MEQ/L (136-145)
[2018-10-30] MEDS: HumaLOG INSULIN (NovoLOG) PER UNIT SC SCH ×4 (07:30→21:00)
[2018-10-30] MEDS: FLUDROCORTISONE ACETATE 0.1 MG TAB PO SCH (08:24)
[2018-10-30] MEDS: CitaloPRAM (CeleXA) 10 MG TABLET PO SCH (08:24)
[2018-10-30] MEDS: CLOPIDOGREL 75 MG TAB PO SCH (08:24)
[2018-10-30] MEDS: ASPIRIN 81 MG ENTERIC TAB PO SCH (08:24)
[2018-10-30] MEDS: MULTIVITAMINS/MINERALS THERAP 1 TAB PO SCH (08:24)
[2018-10-30] MEDS: THIAMINE 100 MG TAB PO SCH (08:24)
[2018-10-30] MEDS: ZINC SULFATE 220 MG CAP PO SCH ×2 (08:24→20:07)
[2018-10-30] MEDS: FOLIC ACID 1 MG TAB PO SCH (08:24)
[2018-10-30] MEDS: ATORVASTATIN 20 MG TAB PO SCH (08:24)
[2018-10-30] MEDS: POTASSIUM CHLORIDE 10 MEQ SR TABLET PO SCH ×3 (08:25→20:08)
[2018-10-30] MEDS: ENOXAPARIN 40 MG/0.4 ML SYRINGE (J1650) SC SCH (08:25)
--- NOTE | 2018-10-30 12:04 | IPNPDOC ---
Text Note Date of Service The patient was seen on 10/30/18. NOTE Subjective: Patient is a 62 year old female with a PMHx of HTN, CAD, NIDDM2, DLP, Hx of TIAs, COPD, Migraine Headaches, Schizophrenia / Psychosis who presented to the ER after she fell and was down for about 3 days. In the emergency room, patient was found to be hypotensive and hyponatremic. Patient was admitted to hospitalist service for further evaluation and treatment. Nephrology was called on consultation. Patient was seen and examined at the bedside. Currently she has had no events overnight. She reports that she has not worked with PT over the weekend. I have advised her that they will be working with her today. She denies any N/V, abdomi nal pain, C/D, or urinary discomfort. Objective: Vitals (See below) General: Lying in bed, no acute distress, comfortable, Awake / Alert and Oriented HEENT: Mild ecchymosis on L forehead - improving CVS: RRR, +S1S2 Lungs: Air entry is fair bilaterally, negative rhonchi / rales / wheezing Abdomen: Soft, ND, no evidence of tenderness Extremities: No LE edema is appreciated, - Calf tenderness Assessment and plan: s/p shock - suspected to be 2/2 septic shock, possibly 2/2 hypovolemic, possibly 2/2 adrenal insufficiency - Currently patient is asymptomatic - BP has improved - Lactic acid is normal - UA 10/21: No signs of infection - CXR 10/21: Right upper lobe pleuroparenchymal fibrosis seen. Eegjhi-K-Uurd catheter. Otherwise no acute disease. - CT abdomen / pelvis 10/21: Complex but stable cysts, left kidney. Mild bilateral intrarenal hydronephrosis, new when compared with the March 05, 2016 study. No etiology seen. The urinary bladder is somewhat distended. No stone disease is seen. No mass lesion is observed. Air and fluid-filled loops of large and small bowel, question mild ileus. 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 SMA is patent. PUNEET is patent. Status post hysterectomy and appendectomy. - s/p Cefuroxime; s/p Vancomycin and Zosyn (Completed antibiotic course of 8 days) - c/w Fludrocortisone Adrenal insufficiency - Patient has a history of adrenal insufficiency and has been on fludrocortisone - Was started on stress doses of Hydrocortisone IV yesterday (10/28) - BP has improved significantly - Will transition hydrocortisone to PO dosing and continue taper Facial trauma - Patient has some ecchymosis on left forehead. 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 Vascular calcification and small vessel changes. No acute intracranial abnormality. - CT cervical spine 10/21: Degenerative spondylosis changes and vascular c alcification. Otherwise negative CT study of the cervical spine without contrast. No fracture seen. - c/w wound care Hyponatremia - Has improved significantly - Nephrology has been on consultation; appreciate their input s/p Hypokalemia COPD - no evidence of exacerbation - c/w inhaled therapy as ordered Hx of Alcohol abuse - c/w Thiamine, Folate, MVI CAD - c/w Plavix, ASA, Atorvastatin DLP - c/w Atorvastatin NIDDM2 with Hyperglycemia and Hypoglycemia - c/w ISS Hx of TIAs - c/w Plavix, ASA, Atorvastatin Migraine Headache - Currently not experiencing any pain Tobacco dependence - Advised smoking cessation Schizophrenia / Psychosis / Depression / Insomnia - c/w Citalopram DVT prophylaxis - c/w Lovenox Disposition: - Will be working with physical therapy today; plan for transition to Rehab if required based on PT recommendations VS,Lisa, I+O VS, Lisa, I+O Laboratory Tests 10/30/18 05:24 Red Blood Count 3.99 L, Mean Corpuscular Volume 95.5, Mean Corpuscular Hemoglobin 32.1, Mean Corpuscular Hemoglobin Concent 33.6, Red Cell Distribution Width 14.6 H, Calcium Level 8.2 L Vital Signs Date Time Temp Pulse Resp B/P (MAP) Pulse Ox O2 Delivery O2 Flow Rate FiO2 10/30/18 06:00 97.7 89 18 139/81 (100) 99 10/29/18 09:00 2.0 I&O- Last 24 Hours up to 6 AM 10/30/18 06:00 Intake Total 2000 ml Output Total 0 ml Balance 2000 ml PHILLIP ALEJANDRO MD October 30, 2018 12:04
[2018-10-30 14:00] VITALS: BP 102/78
[2018-10-30] MEDS: HYDROCORTISONE 5MG TABLET PO SCH ×2 (15:34→20:08)
[2018-10-30] MEDS: NEPHRO-VIT TAB (NEPHROCAPS) PO SCH (20:08)
[2018-10-30 22:00] VITALS: BP 88/58
[2018-10-31] MEDS: SLF 3 ML SYR IV SCH ×3 (05:40→20:14)
[2018-10-31 06:00] VITALS: BP 130/72
[2018-10-31 06:21] LABS: HEMATOCRIT 39.2 % (36.0-47.0); HEMOGLOBIN 13.5 g/dl (12.0-15.5); MEAN CORPUSCULAR HEMOGLOBIN 31.9 pg (27.0-33.0); MEAN CORPUSCULAR HGB CONC 34.4 g/dl (32.0-36.5); MEAN CORPUSCULAR VOLUME 92.7 fl (80.0-96.0); PLATELET COUNT, AUTOMATED 283 10^3/uL (150-450); RED BLOOD COUNT 4.23 10^6/uL (4.00-5.40); WHITE BLOOD COUNT 16.3 10^3/uL (4.0-10.0)
[2018-10-31 06:45] LABS: BLOOD UREA NITROGEN 9 MG/DL (7-18); CALCIUM LEVEL 8.5 MG/DL (8.8-10.2); CARBON DIOXIDE LEVEL 31 MEQ/L (21-32); CHLORIDE LEVEL 95 MEQ/L (98-107); CREATININE FOR GFR 0.36 MG/DL (0.55-1.30); GLOMERULAR FILTRATION RATE > 60.0 (>45); GLUCOSE, FASTING 85 MG/DL (70-100); MAGNESIUM LEVEL 1.7 MG/DL (1.8-2.4); POTASSIUM SERUM 4.1 MEQ/L (3.5-5.1); SODIUM LEVEL 130 MEQ/L (136-145)
[2018-10-31] MEDS ORDERED: MAG SULF 1GM/100ML (MAG RUN) 1 GM in APPROPRIATE DILUENT 1 EA IV ONE (07:15)
[2018-10-31] MEDS: HumaLOG INSULIN (NovoLOG) PER UNIT SC SCH ×4 (07:30→20:32)
[2018-10-31] MEDS: ENOXAPARIN 40 MG/0.4 ML SYRINGE (J1650) SC SCH (08:13)
[2018-10-31] MEDS: ZINC SULFATE 220 MG CAP PO SCH ×2 (08:13→20:13)
[2018-10-31] MEDS: FLUDROCORTISONE ACETATE 0.1 MG TAB PO SCH (08:13)
[2018-10-31] MEDS: FOLIC ACID 1 MG TAB PO SCH (08:13)
[2018-10-31] MEDS: HYDROCORTISONE 5MG TABLET PO SCH (08:13)
[2018-10-31] MEDS: MULTIVITAMINS/MINERALS THERAP 1 TAB PO SCH (08:13)
[2018-10-31] MEDS: ASPIRIN 81 MG ENTERIC TAB PO SCH (08:13)
[2018-10-31] MEDS: CitaloPRAM (CeleXA) 10 MG TABLET PO SCH (08:13)
[2018-10-31] MEDS: CLOPIDOGREL 75 MG TAB PO SCH (08:13)
[2018-10-31] MEDS: ATORVASTATIN 20 MG TAB PO SCH (08:14)
[2018-10-31] MEDS: THIAMINE 100 MG TAB PO SCH (08:14)
[2018-10-31] MEDS: POTASSIUM CHLORIDE 10 MEQ SR TABLET PO SCH ×3 (08:14→20:13)
--- NOTE | 2018-10-31 10:53 | IPNPDOC ---
Text Note Date of Service The patient was seen on 10/31/18. NOTE Subjective: Patient is a 62 year old female with a PMHx of Orthostatic Hypotension, CAD, NIDDM2, DLP, Hx of TIAs, COPD, Migraine Headaches, Schizophrenia / Psychosis who presented to the ER after she fell and was down for about 3 days. In the emergency room, patient was found to be hypotensive and hyponatremic. Patient was admitted to hospitalist service for further evaluation and treatment. Nephrology was called on consultation. Patient was seen and examined at the bedside. Currently, patient reports that she has been working with physical therapy. Nursing staff is noted that she has been ambulatory around the unit. She denies chest pain, shortness of breath or palpitations. Denies any lightheadedness or dizziness. Denies any abdominal pain, diarrhea or discomfort with urination. Objective: Vitals (See below) General: Lying in bed, no acute distress, comfortable, Awake / Alert and Oriented HEENT: Mild ecchymosis on L forehead; near resolved CVS: RRR, +S1S2 Lungs: There appears to be fair air entry bilaterally without evidence of rhonchi, rales or wheezing Abdomen: Abdomen soft without distention or tenderness Extremities: Lower extremities are free of any pitting edema, - Calf tenderness Assessment and plan: s/p shock - suspected to be 2/2 septic shock, possibly 2/2 hypovolemic, possibly 2/2 adrenal insufficiency - Currently patient is asymptomatic - BP remains stable and normotensive - Lactic acid is normal - UA 10/21: No signs of infection - CXR 10/21: Right upper lobe pleuroparenchymal fibrosis seen. Ctlwtp-K-Wajd catheter. Otherwise no acute disease. - CT abdomen / pelvis 10/21: Complex but stable cysts, left kidney. Mild bilateral intrarenal hydronephrosis, new when compared with the March 05, 2016 study. No etiology seen. The urinary bladder is somewhat distended. No stone disease is seen. No mass lesion is observed. Air and fluid-filled loops of large and small bowel, question mild ileus. 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 SMA is patent. PUNEET is patent. Status post hysterectomy and appendectomy. - s/p Cefuroxime; s/p Vancomycin and Zosyn (Completed antibiotic course of 8 days) - c/w Fludrocortisone and Corticosteroids (see below) Adrenal insufficiency - Patient has a history of adrenal insufficiency and has been on fludrocortisone - Was started on stress doses of Hydrocortisone IV yesterday (10/28) - BP has improved significantly - c/w Hydrocortisone; will reduce dose again today Hx of orthostatic hypotension - See above Facial trauma - Patient has some ecchymosis on left forehead. 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 Vascular calcification and small vessel changes. No acute intracranial abnormality. - CT cervical spine 10/21: Degenerative spondylosis changes and vascular calcification. Otherwise negative CT study of the cervical spine without contrast. No fracture seen. - c/w wound care Hyponatremia - Has improved significantly - Nephrology has been on consultation; appreciate their input s/p Hypokalemia COPD - no evidence of exacerbation - c/w inhaled therapy as ordered Hx of Alcohol abuse - c/w Thiamine, Folate, MVI CAD - c/w Plavix, ASA, Atorvastatin DLP - c/w Atorvastatin NIDDM2 with Hyperglycemia and Hypoglycemia - c/w ISS Hx of TIAs - c/w Plavix, ASA, Atorvastatin Migraine Headache - Currently not experiencing any pain Tobacco dependence - Advised smoking cessation Schizophrenia / Psychosis / Depression / Insomnia - c/w Citalopram DVT prophylaxis - c/w Lovenox Disposition: - Awaiting PT clearance - Anticipate possible discharge home / rehab within next 24-48 hours VS,Lisa, I+O VS, Lisa, I+O Laboratory Tests 10/31/18 05:55 Red Blood Count 4.23, Mean Corpuscular Volume 92.7, Mean Corpuscular Hemoglobin 31.9, Mean Corpuscular Hemoglobin Concent 34.4, Red Cell Distribution Width 14.1, Calcium Level 8.5 L Vital Signs Date Time Temp Pulse Resp B/P (MAP) Pulse Ox O2 Delivery O2 Flow Rate FiO2 10/31/18 06:00 97.8 79 16 130/72 (91) 95 10/30/18 14:00 1.0 I&O- Last 24 Hours up to 6 AM 10/31/18 06:00 Intake Total 1780 ml Output Total 0 ml Balance 1780 ml PHILLIP ALEJANDRO MD October 31, 2018 10:53
[2018-10-31 14:00] VITALS: BP 94/54
[2018-10-31] MEDS ORDERED: CORT10TA PO (14:05)
[2018-10-31] MEDS: HYDROCORTISONE 10 MG TAB PO SCH ×2 (15:47→20:12)
[2018-10-31] MEDS: NEPHRO-VIT TAB (NEPHROCAPS) PO SCH (20:12)
[2018-10-31 22:00] VITALS: BP 83/56
[2018-11-01] MEDS: SLF 3 ML SYR IV SCH (05:44)
[2018-11-01 06:00] VITALS: BP 95/74
[2018-11-01 06:35] LABS: HEMATOCRIT 40.7 % (36.0-47.0); MEAN CORPUSCULAR HEMOGLOBIN 32.1 pg (27.0-33.0); MEAN CORPUSCULAR HGB CONC 34.4 g/dl (32.0-36.5); MEAN CORPUSCULAR VOLUME 93.3 fl (80.0-96.0); PLATELET COUNT, AUTOMATED 290 10^3/uL (150-450); RED BLOOD COUNT 4.36 10^6/uL (4.00-5.40); WHITE BLOOD COUNT 17.7 10^3/uL (4.0-10.0)
[2018-11-01 06:52] LABS: BLOOD UREA NITROGEN 9 MG/DL (7-18); CALCIUM LEVEL 8.3 MG/DL (8.8-10.2); CARBON DIOXIDE LEVEL 27 MEQ/L (21-32); CHLORIDE LEVEL 99 MEQ/L (98-107); CREATININE FOR GFR 0.34 MG/DL (0.55-1.30); GLOMERULAR FILTRATION RATE > 60.0 (>45); GLUCOSE, FASTING 75 MG/DL (70-100); MAGNESIUM LEVEL 1.8 MG/DL (1.8-2.4); POTASSIUM SERUM 4.7 MEQ/L (3.5-5.1); SODIUM LEVEL 131 MEQ/L (136-145)
[2018-11-01] MEDS: HumaLOG INSULIN (NovoLOG) PER UNIT SC SCH (07:30)
[2018-11-01] MEDS: ENOXAPARIN 40 MG/0.4 ML SYRINGE (J1650) SC SCH (09:48)
[2018-11-01] MEDS: POTASSIUM CHLORIDE 10 MEQ SR TABLET PO SCH (09:49)
[2018-11-01] MEDS: ATORVASTATIN 20 MG TAB PO SCH (09:49)
[2018-11-01] MEDS: ZINC SULFATE 220 MG CAP PO SCH (09:50)
[2018-11-01] MEDS: HYDROCORTISONE 10 MG TAB PO SCH (09:51)
[2018-11-01] MEDS: MULTIVITAMINS/MINERALS THERAP 1 TAB PO SCH (09:51)
[2018-11-01] MEDS: THIAMINE 100 MG TAB PO SCH (09:51)
[2018-11-01] MEDS: CLOPIDOGREL 75 MG TAB PO SCH (09:52)
[2018-11-01] MEDS: ASPIRIN 81 MG ENTERIC TAB PO SCH (09:52)
[2018-11-01] MEDS: CitaloPRAM (CeleXA) 10 MG TABLET PO SCH (09:52)
[2018-11-01] MEDS: FLUDROCORTISONE ACETATE 0.1 MG TAB PO SCH (09:53)
[2018-11-01] MEDS: FOLIC ACID 1 MG TAB PO SCH (09:53)
[2018-11-01] MEDS ORDERED: CITA10TA6 PO (09:57)
[2018-11-01] MEDS ORDERED: FOLI1TAB11 PO (09:57)
[2018-11-01] MEDS ORDERED: BUDE180INH INH (09:57)
[2018-11-01] MEDS ORDERED: ATOR80TA59 PO (09:57)
[2018-11-01] MEDS ORDERED: CLOP75TA2 PO (09:57)
[2018-11-01] MEDS ORDERED: VENTAER INH (09:57)
[2018-11-01] MEDS ORDERED: METF500T4 PO (09:57)
[2018-11-01] MEDS ORDERED: FLUD0.1T PO (09:57)
[2018-11-01] MEDS ORDERED: THIA100TA PO (09:57)
[2018-11-01] MEDS ORDERED: MULTCAP PO (09:57)
[2018-11-01] MEDS ORDERED: ASPI81TA26 PO (09:57)
--- NOTE | 2018-11-01 11:25 | DS.PDOC ---
Discharge Summary General Date of Admission October 21, 2018 at 18:08 Date of Discharge 11/01/2018 Discharge Summary PROCEDURES PERFORMED DURING STAY: [None]. ADMITTING DIAGNOSES / DISCHARGE DIAGNOSES: s/p shock - likely 2/2 adrenal insufficiency, possibly 2/2 hypovolemic, less likely 2/2 septic shock Adrenal insufficiency Hx of orthostatic hypotension Facial trauma Hyponatremia s/p Hypokalemia COPD Hx of Alcohol abuse CAD DLP NIDDM2 with Hyperglycemia and Hypoglycemia Hx of TIAs Migraine Headache Tobacco dependence Schizophrenia / Psychosis / Depression / Insomnia DVT prophylaxis COMPLICATIONS/CHIEF COMPLAINT: Found down for about 3 days after she had fallen HISTORY OF PRESENT ILLNESS: Patient is a 62 year old female with a PMHx of Orthostatic Hypotension, CAD, NIDDM2, DLP, Hx of TIAs, COPD, Migraine Headaches, Schizophrenia / Psychosis who presented to the ER after she fell and was down for about 3 days. In the emergency room, patient was found to be hypotensive and hyponatremic. Patient was admitted to hospitalist service for further evaluation and treatment. Nephrology was called on consultation. HOSPITAL COURSE: s/p shock - suspected to be 2/2 septic shock, possibly 2/2 hypovolemic, possibly 2/2 adrenal insufficiency - Currently patient is asymptomatic - BP remains stable and normotensive - Lactic acid is normal - UA 10/21: No signs of infection - CXR 10/21: Right upper lobe pleuroparenchymal fibrosis seen. Ueknjv-K-Zrga catheter. Otherwise no acute disease. - CT abdomen / pelvis 10/21: Complex but stable cysts, left kidney. Mild bilateral intrarenal hydronephrosis, new when compared with the March 05, 2016 study. No etiology seen. The urinary bladder is somewhat distended. No stone disease is seen. No mass lesion is observed. Air and fluid-filled loops of large and small bowel, question mild ileus. 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 SMA is patent. PUNEET is patent. Status post hysterectomy and appendectomy. - s/p Cefuroxime; s/p Vancomycin and Zosyn (Completed antibiotic course of 8 days) - c/w Fludrocortisone and Corticosteroids (see below) Adrenal insufficiency - Patient has a history of adrenal insufficiency and has been on fludrocortisone - Was started on stress doses of Hydrocortisone IV yesterday (10/28) - BP has improved significantly - c/w Hydrocortisone at current dose - Will have outpatient provider follow up for dose adjustment Hx of orthostatic hypotension - See above Facial trauma - Patient has some ecchymosis on left forehead. 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 Vascular calcification and small vessel changes. No acute intracranial abnormality. - CT cervical spine 10/21: Degenerative spondylosis changes and vascular calcification. Otherwise negative CT study of the cervical spine without contrast. No fracture seen. - c/w wound care Hyponatremia - Has improved significantly - Nephrology has been on consultation; appreciate their input s/p Hypokalemia COPD - No evidence of exacerbation - c/w inhaled therapy as ordered Hx of Alcohol abuse - c/w Thiamine, Folate, MVI CAD - c/w Plavix, ASA, Atorvastatin DLP - c/w Atorvastatin NIDDM2 with Hyperglycemia and Hypoglycemia - c/w ISS Hx of TIAs - c/w Plavix, ASA, Atorvastatin Migraine Headache - Currently not experiencing any pain Tobacco dependence - Advised smoking cessation Schizophrenia / Psychosis / Depression / Insomnia - c/w Citalopram DVT prophylaxis - c/w Lovenox DISCHARGE MEDICATIONS: Please see below. ALLERGIES: Please see below. PHYSICAL EXAMINATION ON DISCHARGE: Vitals (See below) General: Lying in bed, no acute distress, comfortable, Awake / Alert and Oriented HEENT: Mild ecchymosis on L forehead; near resolved CVS: RRR, +S1S2 Lungs: There appears to be fair air entry bilaterally, -rhonchi/rales/wheezing Abdomen: Soft, -distention / tenderness Extremities: No edema, - Calf tenderness LABORATORY DATA: Please see below. ACTIVITY: [As tolerated]. DISCHARGE PLAN: Follow up with Dr. Guillermo Cabrera and Dr. Fitzgerald within 7 days Remain compliant with treatment plan and medications Return to the ER if you experience any problems DISPOSITION: Home with Services DISCHARGE CONDITION: [Stable]. TIME SPENT ON DISCHARGE: 38 minutes Vital Signs/I&Os Vital Signs Date Time Temp Pulse Resp B/P (MAP) Pulse Ox O2 Delivery O2 Flow Rate FiO2 11/01/18 06:00 98.5 83 16 95/74 (81) 94 10/30/18 14:00 1.0 I&O- Last 24 Hours up to 6 AM 11/01/18 06:00 Intake Total 2170 ml Output Total 1125 ml Balance 1045 ml Laboratory Data Labs 24H Laboratory Tests 2 10/31/18 11:33: Bedside Glucose (Misc Panel) 109 10/31/18 16:28: Bedside Glucose (Misc Panel) 157H 10/31/18 20:17: Bedside Glucose (Misc Panel) 159H 11/01/18 06:12: Nucleated Red Blood Cells % (auto) 0.0, Anion Gap 5L, Glomerular Filtration Rate > 60.0, Blood Urea Nitrogen 9, Creatinine 0.34L, Sodium Level 131L, Potassium Level 4.7, Chloride Level 99, Carbon Dioxide Level 27, Calcium Level 8.3L, Magnesium Level 1.8 CBC/BMP Laboratory Tests 11/01/18 06:12 Red Blood Count 4.36, Mean Corpuscular Volume 93.3, Mean Corpuscular Hemoglobin 32.1, Mean Corpuscular Hemoglobin Concent 34.4, Red Cell Distribution Width 14.3, Calcium Level 8.3 L FSBS Laboratory Tests Test 10/31/18 11:33 10/31/18 16:28 10/31/18 20:17 Range/Units Bedside Glucose (Misc Panel) 109 157 159 80-115 MG/DL Microbiology Microbiology 10/22/18 Urine Culture - Final, Complete Discharge Medications Scheduled Aspirin (Aspirin EC) 81 Mg Tab, 81 MG PO DAILY Atorvastatin Calcium (Atorvastatin Calcium) 80 Mg Tab, 80 MG PO DAILY Budesonide (Pulmicort Flexhaler) 180 Mcg Aer.pow.ba, 1 PUFF INH BID Citalopram Hydrobromide (Citalopram HBr) 10 Mg Tab, 10 MG PO DAILY Clopidogrel Bisulfate (Clopidogrel) 75 Mg Tab, 75 MG PO DAILY Fludrocortisone Acetate (Fludrocortisone Acetate) 0.1 Mg Tab, 0.1 MG PO DAILY Folic Acid (Folic Acid) 1 Mg Tab, 1 MG PO DAILY Hydrocortisone (Cortef) 10 Mg Tablet, 10 MG PO TID Metformin HCl (Metformin HCl ER) 500 Mg Tab, 500 MG PO QPM Multivitamin (Multivitamins) 1 Each Capsule, 1 CAP PO DAILY Thiamine Hcl (Vitamin B-1) 100 Mg Tab, 100 MG PO DAILY Scheduled PRN Albuterol Sulfate (Ventolin Hfa) 108 Mcg/Act Aer, 2 PUFF INH Q4H PRN for SHORTNESS OF BREATH Miscellaneous Medications [Patient Comment] , (Reported) PATIENT REPORTS SHE TOOK ALL OF HER MEDICATIONS TODAY. HOWEVER, WHILE LOOKING THROUGH THE BAG OF MEDICATIONS BROUGHT IN BY EMS, IT WAS DISCOVERED THAT MANY OF THE BOTTLES WERE EMPTY OR HAD NOT BEEN REFILLED IN QUITE SOME TIME. UNSURE WHAT MEDICATIONS PATIENT DID TAKE THIS MORNING. MEDICATION LIST IS THE SAME WHEN SHE WAS DISCHARGED ON 07/19/18 Allergies Coded Allergies: No Known Allergies (Unverified , 07/07/18) PHILLIP ALEJANDRO MD November 01, 2018 11:25
== END 2018-11-01 11:40 | disposition home health service (06) | DRG 424 ==
LOC: M ED 15:05 → EDBD 15:05 → M ED INP 18:08 → M ICU 18:59 → M MS5PR 10-26 14:26
PROVIDERS: ADMIT Internal Medicine; ATTEND Internal Medicine
DX: E27.40 Unspecified adrenocortical insufficiency (principal); E43 Unspecified severe protein-calorie malnutrition; E11.649 Type 2 diabetes mellitus with hypoglycemia without coma; L03.115 Cellulitis of right lower limb; L03.116 Cellulitis of left lower limb; E11.65 Type 2 diabetes mellitus with hyperglycemia; F20.9 Schizophrenia, unspecified; E87.1 Hypo-osmolality and hyponatremia; F17.200 Nicotine dependence, unspecified, uncomplicated; J44.9 Chronic obstructive pulmonary disease, unspecified; E87.6 Hypokalemia; Z86.73 Personal history of transient ischemic attack (TIA), and cerebral infarction without residual deficits; G43.909 Migraine, unspecified, not intractable, without status migrainosus; I25.10 Atherosclerotic heart disease of native coronary artery without angina pectoris; Z79.82 Long term (current) use of aspirin; Z79.899 Other long term (current) drug therapy; Z85.118 Personal history of other malignant neoplasm of bronchus and lung; F10.10 Alcohol abuse, uncomplicated

== ENCOUNTER 2018-11-02 01:34 | Emergency (ER) | payer MEDICAID ==
[~2018-11-02 01:34] MED LIST changes: +CORT10TA PO; -CitaloPRAM (CeleXA) 10 MG TABLET PO SCH; -FLUDROCORTISONE ACETATE 0.1 MG TAB PO SCH; +MULTCAP PO
[2018-11-02 02:56] LABS: HEMATOCRIT 40.6 % (36.0-47.0); MEAN CORPUSCULAR HGB CONC 34.5 g/dl (32.0-36.5); MEAN CORPUSCULAR VOLUME 92.7 fl (80.0-96.0); PLATELET COUNT, AUTOMATED 299 10^3/uL (150-450); RED BLOOD COUNT 4.38 10^6/uL (4.00-5.40); WHITE BLOOD COUNT 28.3 10^3/uL (4.0-10.0)
[2018-11-02 03:26] LABS: BLOOD UREA NITROGEN 9 MG/DL (7-18); CARBON DIOXIDE LEVEL 25 MEQ/L (21-32); CHLORIDE LEVEL 91 MEQ/L (98-107); CREATININE FOR GFR 0.32 MG/DL (0.55-1.30); ETHYL ALCOHOL (ETHANOL) 0.115 % (0.000-0.010); GLOMERULAR FILTRATION RATE > 60.0 (>45); GLUCOSE, FASTING 79 MG/DL (70-100); POTASSIUM SERUM 3.5 MEQ/L (3.5-5.1); SODIUM LEVEL 129 MEQ/L (136-145)
[2018-11-02 04:07] VITALS: O2SAT 95
[2018-11-02 05:10] VITALS: BP 86/54
== END 2018-11-02 05:36 | disposition home or self-care (01) ==
LOC: M ED 01:34
DX: F10.120 Alcohol abuse with intoxication, uncomplicated (principal); D72.829 Elevated white blood cell count, unspecified; E11.9 Type 2 diabetes mellitus without complications; E78.5 Hyperlipidemia, unspecified; J44.9 Chronic obstructive pulmonary disease, unspecified; G43.909 Migraine, unspecified, not intractable, without status migrainosus; F20.9 Schizophrenia, unspecified; Z86.73 Personal history of transient ischemic attack (TIA), and cerebral infarction without residual deficits; F17.200 Nicotine dependence, unspecified, uncomplicated; Z85.118 Personal history of other malignant neoplasm of bronchus and lung; Z79.899 Other long term (current) drug therapy; Z91.81 History of falling
CPT/HCPCS: 80048; 85027; 99285; G0480

== ENCOUNTER 2018-11-07 16:03 | Inpatient (IN) | payer MEDICAID ==
[~2018-11-07] VITALS: Ht 157.5 cm; Wt 42.5 kg
[~2018-11-07 16:03] MED LIST changes: +TRAZ1TAB10 PO; +TRAZ1TAB11 PO; -TRAZ25TA PO; -TRAZO50TA PO
[2018-11-07] MEDS ORDERED: NS IV ONE (16:45)
[2018-11-07] MEDS ORDERED: DILUENT IV ONE (16:45)
[2018-11-07 16:57] LABS: BASO # 0.1 10^3/uL (0.0-0.2); BASO % 0.8 % (0.0-1.0); EOS # 0.1 10^3/uL (0.0-0.50); EOS % 0.5 % (0.0-3.0); HEMATOCRIT 44.8 % (36.0-47.0); HEMOGLOBIN 15.2 g/dl (12.0-15.5); LYMPH # 3.7 10^3/uL (1.5-4.5); LYMPH % 25.1 % (24.0-44.0); MEAN CORPUSCULAR HEMOGLOBIN 31.8 pg (27.0-33.0); MEAN CORPUSCULAR HGB CONC 33.9 g/dl (32.0-36.5); MEAN CORPUSCULAR VOLUME 93.7 fl (80.0-96.0); MONO # 1.2 10^3/uL (0.0-0.8); MONO % 8.2 % (0.0-5.0); NEUTROPHILS # 9.5 10^3/uL (1.8-7.7); NEUTROPHILS % 64.9 % (36.0-66.0); PLATELET COUNT, AUTOMATED 295 10^3/uL (150-450); RED BLOOD COUNT 4.78 10^6/uL (4.00-5.40); WHITE BLOOD COUNT 14.7 10^3/uL (4.0-10.0)
[2018-11-07 16:59] LABS: VENOUS BASE EXCESS 2.7 (-2.0-2.0); VENOUS HCO3 28.9 MEQ/L (23.0-27.0); VENOUS O2 SATURATION 73.1 % (60.0-80.0); VENOUS PARTIAL PRESSURE CO2 49.6 mmHg (38.0-50.0); VENOUS PARTIAL PRESSURE O2 38.4 mmHg (30.0-50.0); VENOUS PH 7.383 UNITS (7.330-7.430); VENOUS STANDARD HCO3 26.2 MEQ/L; VENOUS TOTAL CO2 30.4 MEQ/L (24.0-28.0)
--- NOTE | 2018-11-07 17:07 | REP ---
Clinical: Sepsis. Shock . Comparison: 10/25/2018 . Findings: The mediastinum and cardiac silhouette are stable and within normal limits for portable technique. Xuvfpw-A-Kyns with tip in the SVC again noted. The lung garcia are clear without acute consolidation, effusion, or pneumothorax. Skeletal structures are intact. Impression: No acute cardiopulmonary process appreciated. Electronically Signed by Reji Dupree MD 11/07/2018 04:58 P
[2018-11-07 17:21] LABS: ALBUMIN 3.4 GM/DL (3.2-5.2); ALT/SGPT 28 U/L (12-78); AMYLASE 34 U/L (25-115); BILIRUBIN,DIRECT 0.3 MG/DL (0.0-0.2); BLOOD UREA NITROGEN 8 MG/DL (7-18); C REACTIVE PROTEIN QUANTITATIV 1.74 MG/DL (0.00-0.30); CALCIUM LEVEL 8.9 MG/DL (8.8-10.2); CARBON DIOXIDE LEVEL 30 MEQ/L (21-32); CHLORIDE LEVEL 95 MEQ/L (98-107); CPK CREATINE PHOSPHOKINASE 39 U/L (26-192); CREATININE FOR GFR 0.61 MG/DL (0.55-1.30); GLOMERULAR FILTRATION RATE > 60.0 (>45); GLUCOSE, FASTING 81 MG/DL (70-100); MB/CK RELATIVE INDEX 5.38 (< OR =4); SODIUM LEVEL 132 MEQ/L (136-145); TOTAL PROTEIN 6.7 GM/DL (6.4-8.2); TROPONIN I < 0.02 NG/ML (< 0.10)
[2018-11-07 17:25] LABS: PROTHROMBIN TIME 13.3 SECONDS (12.1-14.4)
[2018-11-07 17:26] LABS: PARTIAL THROMBOPLASTIN TIME 31.5 SECONDS (25.4-37.6)
[2018-11-07 17:55] LABS: INFLUENZA A AMPLIFICATION NEGATIVE (NEGATIVE); INFLUENZA B AMPLIFICATION NEGATIVE (NEGATIVE)
[2018-11-07 18:00] LABS: ETHYL ALCOHOL (ETHANOL) < 0.003 % (0.000-0.010)
[2018-11-07] MEDS ORDERED: NS 500 ML IV ONE (18:00)
[2018-11-07] MEDS ORDERED: HYDROCORTISONE 100 MG/2 ML VIAL (J1720) IV ONE (18:00)
--- NOTE | 2018-11-07 18:03 | REP ---
Clinical: Trauma/fall Comparison: 10/21/2018 . Findings: Age-related atrophy with periventricular leukomalacia and microvascular ischemic changes are appreciated. Old infarction involving the right hemisphere suggested. The ventricles and sulci are symmetric. Murphy-white differentiation is maintained. There is no evidence for acute intracranial hemorrhage, mass/mass effect, pathology or infarction. No extra-axial fluid collection. Calvarium is intact. Paranasal sinuses and mastoid air cells are clear. Impression: Age related atrophy and microvascular ischemic changes. Stable changes related to old infarction. No acute intracranial hemorrhage, infarction, or mass/mass effect. Electronically Signed by Reji Dupree MD 11/07/2018 05:54 P
[2018-11-07] MEDS ORDERED: NS 1,000 ML IV ONE (19:15)
[2018-11-07] MEDS ORDERED: BUDE180INH INH (20:11)
[2018-11-07] MEDS ORDERED: FLUD0.1T PO (20:11)
[2018-11-07] MEDS ORDERED: FOLI1TAB11 PO (20:11)
[2018-11-07] MEDS ORDERED: METF500T4 PO (20:11)
[2018-11-07] MEDS ORDERED: ATOR80TA59 PO (20:11)
[2018-11-07] MEDS ORDERED: THIA100T7 PO (20:11)
[2018-11-07] MEDS ORDERED: CELE10TA PO (20:11)
[2018-11-07] MEDS ORDERED: VENTAER INH (20:11)
[2018-11-07] MEDS ORDERED: ASPI81TA26 PO (20:11)
[2018-11-07] MEDS ORDERED: HYDR-4513 PO (20:11)
[2018-11-07] MEDS ORDERED: MULT-40 PO (20:11)
[2018-11-07] MEDS ORDERED: PLAV1TAB2 PO (20:11)
[2018-11-07] MEDS ORDERED: ACETAMINOPHEN TAB 650MG DOSE (2X325MG) PO PRN (20:15)
[2018-11-07] MEDS ORDERED: MAALOX 30 ML SUSP *UDC PO PRN (20:15)
[2018-11-07] MEDS ORDERED: ALBUTEROL 90 MCG/ACT 8GM HFA INHALER INH PRN (20:30)
--- NOTE | 2018-11-07 20:51 | HPEPDOC ---
General Date of Admission November 07, 2018 at 19:43 Date of Service: November 07, 2018 Attending Physician: ISMAEL NASSAR MD Chief Complaint The patient is a 63-year-old female admitted with a reason for visit of Adrenal Insufficiency. History of Present Illness Patient is a 63-year-old female, past medical history significant for adrenal insufficiency, orthostatic hypotension, schizophrenia, medical nonadherence, type 2 diabetes mellitus, COPD, not oxygen dependent, presenting to the hospital on account of weakness and dizziness. Blood pressure on presentation was 68/51 with a map of 57. Patient was bolused IV fluids and on reassessment, blood pressure was improved at 94/70 with a map of 78. On evaluation, patient states she fell at home about a week ago due to weakness. She denied however any other symptoms and was unable to provide any more history, other than she had no dysuria, no pain, no fever, no nausea or diarrhea, no chest pain or shortness of breath. Of note, patient was discharged from this facility 6 days ago for same presentation and symptoms. After stabilization, at time of discharge, it was discovered that patient had not been taking her medications. This admission also it is questionable if patient has been adherent with medications prescribed during last admission. Home Medications Scheduled Aspirin (Aspirin EC) 81 Mg Tablet.dr, 81 MG PO DAILY, (Reported) Atorvastatin Calcium (Atorvastatin Calcium) 80 Mg Tablet, 80 MG PO DAILY, (Reported) Budesonide (Pulmicort Flexhaler) 180 Mcg Aer.pow.ba, 1 PUFF INH BID, (Reported) Citalopram Hydrobromide (Celexa) 10 Mg Tablet, 10 MG PO DAILY, (Reported) Clopidogrel Bisulfate (Plavix) 75 Mg Tablet, 75 MG PO DAILY, (Reported) Fludrocortisone Acetate (Fludrocortisone Acetate) 0.1 Mg Tablet, 0.1 MG PO D AILY, (Reported) Folic Acid (Folic Acid) 1 Mg Tablet, 1 MG PO DAILY, (Reported) Hydrocortisone (Hydrocortisone) 10 Mg Tablet, 10 MG PO TID, (Reported) Metformin HCl (Metformin HCl ER) 500 Mg Tab.er.24h, 500 MG PO QPM, (Reported) Multivitamin (Multivitamins) 1 Each Tablet, 1 TAB PO DAILY, (Reported) Thiamine HCl (Thiamine HCl) 100 Mg Tablet, 100 MG PO DAILY, (Reported) Scheduled PRN Albuterol Sulfate (Ventolin Hfa) 18 Gm Hfa.aer.ad, 2 PUFF INH Q6H PRN for SHORTNESS OF BREATH, (Reported) Allergies Coded Allergies: No Known Allergies (Unverified , 07/07/18) Attending Note IMPRESSION: Asymptomatic hypotension with underlying adrenal insufficiency and malnutrition, with no indication of infectious process. I think hypotension is due to medication non-compliance and malnutrition, along with alcohol-related autonomic dysfunction. Pt has been previously admitted several times for low BP. Recommend corticosteroid supplement, IV fluid, Dietary consult and porter sample caseassociate marketing manager for proper placement. Past Medical History Medical History Adrenal insufficiency Coronary artery disease Peripheral arterial diseaseceliac axis stenosis COPD Migraine headaches Schizophrenia Orthostatic hypotension Psychosis/Depression Type 2 diabetes mellitus ETOH abuse Nicotine Dependence Surgical History Patient was unable to provide any history when questioned Family History Patient was unable to provide any history when questioned Social History * Smoker: greater than 1 pack/day Alcohol: heavy Drugs: denies A-FIB/CHADSVASC A-FIB History Current/History of A-Fib/PAF?: No Current PO Anticoag Therapy: No Review of Systems Other systems A limited review of systems as stated in history of presenting illness was obtained Physical Examination Other physical findings GENERAL: looks cachetic and dishevelled SKIN : left facial healing abrasions to forehead, cheeks amd chin HEENT: facial abrasions, PERRL, dry mucous membrane CARDIOVASCULAR: Regular rate and rhythm, S1S2, no JVD, no edema, distal pulses + and palpable RESP: CTAB, no accessory muscle use noted ABDOMEN: BS+ non distended non tender MS: no joint deformities NEURO: Alert, oriented to place and self PSYCH: flat affect Vital Signs Vital Signs Date Time Temp Pulse Resp B/P (MAP) Pulse Ox O2 Delivery O2 Flow Rate FiO2 11/07/18 19:30 96.1 88 18 84/50 (61) 94 Room Air Laboratory Data Labs 24H Laboratory Tests 2 11/07/18 16:44: Immature Granulocyte % (Auto) 0.5, White Blood Count 14.7H, Red Blood Count 4.78, Hemoglobin 15.2, Hematocrit 44.8, Mean Corpuscular Volume 93.7, Mean Corpuscular Hemoglobin 31.8, Mean Corpuscular Hemoglobin Concent 33.9, Red Cell Distribution Width 15.1H, Platelet Count 295, Neutrophils (%) (Auto) 64.9, Lymphocytes (%) (Auto) 25.1, Monocytes (%) (Auto) 8.2H, Eosinophils (%) (Auto) 0.5, Basophils (%) (Auto) 0.8, Neutrophils # (Auto) 9.5H, Lymphocytes # (Auto) 3.7, Monocytes # (Auto) 1.2H, Eosinophils # (Auto) 0.1, Basophils # (Auto) 0.1, Nucleated Red Blood Cells % (auto) 0.0, Prothrombin Time 13.3, Prothromb Time International Ratio 1.00, Activated Partial Thromboplast Time 31.5, Blood Gas Bicarbonate Standard 26.2, Venous Blood pH 7.383, Venous Blood Partial Pressure CO2 49.6, Venous Blood Partial Pressure O2 38.4, Venous Blood Total Carbon Dioxide 30.4H, Venous Blood HCO3 28.9H, Venous Blood Oxygen Saturation 73.1, Venous Blood Base Excess 2.7H, Anion Gap 7L, Glomerular Filtration Rate > 60.0, Lactic Acid Level 1.7, Calcium Level 8.9, Aspartate Amino Transf (AST/SGOT) 18, Alanine Aminotransferase (ALT/SGPT) 28, Alkaline Phosphatase 114, Total Bilirubin 1.0, Direct Bilirubin 0.3H, Total Creatine Kinase 39, Creatine Kinase MB 2.0, Creatine Kinase MB Relative Index 5.38H, Troponin I < 0.02, C-Reactive Protein, Quantitative 1.74H, Total Protein 6.7, Albumin 3.4, Albumin/Globulin Ratio 1.03, Amylase Level 34, Ethyl Alcohol Level < 0.003 11/07/18 16:53: Influenza Type A (RT-PCR) NEGATIVE, Influenza Type B (RT-PCR) NEGATIVE CBC/BMP Laboratory Tests 11/07/18 16:44 Red Blood Count 4.78, Mean Corpuscular Volume 93.7, Mean Corpuscular Hemoglobin 31.8, Mean Corpuscular Hemoglobin Concent 33.9, Red Cell Distribution Width 15.1 H, Neutrophils (%) (Auto) 64.9, Lymphocytes (%) (Auto) 25.1, Monocytes (%) (Auto) 8.2 H, Eosinophils (%) (Auto) 0.5, Basophils (%) (Auto) 0.8, Neutrophils # (Auto) 9.5 H, Lymphocytes # (Auto) 3.7, Monocytes # (Auto) 1.2 H, Eosinophils # (Auto) 0.1, Basophils # (Auto) 0.1 Microbiology Microbiology 11/07/18 Blood Culture, Received Pending 11/07/18 Blood Culture, Received Pending Problems (1) Adrenal insufficiency Status: Acute Problem Text: -presenting with hypotension,(Bp-68/51) hyponatremia and report of weakness with fall at home -Hydrocortisone 100mg VV Q8 -continous IVF with NS -assess for possible infectious process as contributing factor -Follow procalcitonin levels monitor eletrolytes and replete as indicated to keep K+>4, Mg>2, Na+>135 (2) Failure to thrive syndrome, adult Problem Text: -patient was just discharged home 6 days ago after treatment of same symptoms/dxs -Consult case management for evaluation for placement -PT/OT to assess for ability to live independently as she is doing at the moment (3) COPD (chronic obstructive pulmonary disease) Status: Chronic Problem Text: -no acute exacerbation at this time. -continue home inhaler therapy (4) Diabetes mellitus Status: Chronic Problem Text: -finger stick checks prior to meals and at bedtime -continue metformin (5) Orthostatic hypotension Problem Text: -likely due to underlying adrenal insufficiency -fall precautions -orthostatic VS Q4 hours with vitals -follow OT/PT evaluation and recommendations -consider nephrology consult if unresolved when rehydrated/euvolemic -TEDs while out of bed (6) DVT prophylaxis Problem Text: -lovenox 40mg SQ daily (7) Advance care planning Problem Text: -code status is full resuscitation -anticipate discharge to rehabilitation facility when medically stable Plan / VTE VTE Prophylaxis Ordered?: Yes OTTO SCHMIDT November 07, 2018 20:51 ISMAEL NASSAR MD November 07, 2018 23:04
[2018-11-07] MEDS ORDERED: metFORMIN XR 500MG TAB *GLUCOPHAGE XR PO SCH (21:00)
--- NOTE | 2018-11-07 21:12 | ECGEPIP ---
[facility] - ED Test Date: 2018-11-07 Pat Name: DOMINIK COLVIN Department: Room: - Gender: Female Toe Puller: JGama : 1955 Requested By: ESTHER Foley Order Number: [id number] Reading MD: Mckayla Curtis Measurements Intervals [address] Rate: 88 P: 77 MD: 118 QRS: 65 QRSD: 68 T: 59 QT: 364 QTc: 443 Interpretive Statements SINUS RHYTHM WITH SINUS ARRHYTHMIA WITH SHORT MD INTERVAL POSSIBLE RIGHT ATRIAL ENLARGEMENT POSSIBLE LEFT ATRIAL ENLARGEMENT NSTTW abnormalities Electronically Signed on 11-07-2018 21:12:01 EDT by Mckayla Curtis
[2018-11-07 22:56] VITALS: BP 125/75
[2018-11-07 23:00] VITALS: BP_SYST 122; BP_SYST 128; BP_DIAS 78; BP_DIAS 82
[2018-11-07] MEDS: NS 1,000 ML IV SCH (23:00)
[2018-11-07 23:26] VITALS: BP 131/78
[2018-11-07] MEDS: ENOXAPARIN 40 MG/0.4 ML SYRINGE (J1650) SC SCH (23:26)
[2018-11-08] VITALS (12 sets, daily range): BP systolic 77–159; BP diastolic 51–82
[2018-11-08] MEDS: HYDROCORTISONE 100 MG/2 ML VIAL (J1720) IV SCH ×3 (02:09→21:05)
[2018-11-08 05:05] LABS: HEMATOCRIT 37.9 % (36.0-47.0); MEAN CORPUSCULAR HEMOGLOBIN 32.4 pg (27.0-33.0); MEAN CORPUSCULAR HGB CONC 33.5 g/dl (32.0-36.5); MEAN CORPUSCULAR VOLUME 96.7 fl (80.0-96.0); PLATELET COUNT, AUTOMATED 242 10^3/uL (150-450); RED BLOOD COUNT 3.92 10^6/uL (4.00-5.40); WHITE BLOOD COUNT 8.4 10^3/uL (4.0-10.0)
[2018-11-08 05:08] LABS: HEMOGLOBIN 12.7 g/dl (12.0-15.5)
[2018-11-08 05:31] LABS: ALBUMIN 2.6 GM/DL (3.2-5.2); ALT/SGPT 20 U/L (12-78); BILIRUBIN,TOTAL 0.5 MG/DL (0.2-1.0); BLOOD UREA NITROGEN 8 MG/DL (7-18); CALCIUM LEVEL 7.8 MG/DL (8.8-10.2); CARBON DIOXIDE LEVEL 23 MEQ/L (21-32); CHLORIDE LEVEL 106 MEQ/L (98-107); CREATININE FOR GFR 0.59 MG/DL (0.55-1.30); GLOMERULAR FILTRATION RATE > 60.0 (>45); GLUCOSE, FASTING 227 MG/DL (70-100); POTASSIUM SERUM 3.5 MEQ/L (3.5-5.1); SODIUM LEVEL 137 MEQ/L (136-145); TOTAL PROTEIN 5.6 GM/DL (6.4-8.2)
[2018-11-08] MEDS ORDERED: DEXTROSE 50% 50 ML SYRINGE IV PRN (07:30)
[2018-11-08] MEDS ORDERED: GLUCOSE 4 GM CHEW TABLET PO PRN (07:30)
[2018-11-08] MEDS ORDERED: GLUCAGON FOR INJ 1 MG VIAL (J1610) SC PRN (07:30)
[2018-11-08] MEDS: THIAMINE 100 MG TAB PO SCH (08:10)
[2018-11-08] MEDS: ATORVASTATIN 20 MG TAB PO SCH (08:10)
[2018-11-08] MEDS: ASPIRIN 81 MG ENTERIC TAB PO SCH (08:11)
[2018-11-08] MEDS: CLOPIDOGREL 75 MG TAB PO SCH (08:11)
[2018-11-08] MEDS: FOLIC ACID 1 MG TAB PO SCH (08:11)
[2018-11-08] MEDS: HumaLOG INSULIN (NovoLOG) PER UNIT SC SCH ×4 (08:11→20:55)
[2018-11-08] MEDS: FLUDROCORTISONE ACETATE 0.1 MG TAB PO SCH (08:11)
[2018-11-08] MEDS: BUDESONIDE 0.5 MG/2 ML INHALATION SUSPENSION INH SCH ×2 (08:19→19:07)
[2018-11-08] MEDS: CitaloPRAM (CeleXA) 10 MG TABLET PO SCH (08:24)
[2018-11-08] MEDS: NS 1,000 ML IV SCH ×2 (09:00→18:15)
[2018-11-08 09:23] LABS: APPEARANCE, URINE CLEAR (CLEAR); BACTERIA, URINE AUTO 1+ (NEGATIVE); BILIRUBIN, URINE AUTO NEGATIVE (NEGATIVE); BLOOD, URINE BLOOD NEGATIVE (NEGATIVE); COLOR, URINE YELLOW (YELLOW); GLUCOSE, URINE (UA) AUTO 2+ mg/dL (NEGATIVE); KETONE, URINE AUTO TRACE mg/dL (NEGATIVE); LEUKOCYTE ESTERASE, URINE AUTO NEGATIVE (NEGATIVE); MUCUS, URINE SMALL (NEGATIVE); NITRITE, URINE AUTO NEGATIVE (NEGATIVE); PROTEIN, URINE AUTO NEGATIVE (NEGATIVE); RBC, URINE AUTO 1 /HPF (0-3); SPECIFIC GRAVITY URINE AUTO 1.014 (1.002-1.035); SQUAMOUS EPITHELIAL CELL UR AU 1 /HPF (0-6); WBC, URINE AUTO 0 /HPF (0-3)
--- NOTE | 2018-11-08 13:48 | IPNPDOC ---
Text Note Date of Service The patient was seen on 11/08/18. NOTE SUBJECTIVE: Ms. Simmons is seen on bedside rounds this morning. She is currently about to undergo an echocardiogram. She is laying in bed. She is comfortable and in no acute distress, she is speaking in full sentences. She denies any shortness of breath, cough, chest pain, nausea vomiting or fevers. OBJECTIVE PHYSICAL EXAMINATION: VITAL SIGNS: Please see below. GENERAL: This is a pleasant 63-year-old female appearing older than her stated age, she is lying in bed comfortable in no acute distress and speaking in complete sentences. HEENT: Moist mucous membranes, no JVD, EOMI CARDIOVASCULAR: Normal S1 and S2, no murmurs, rubs or gallops appreciated RESPIRATORY: Clear to auscultation bilaterally, no rales, rhonchi or wheezing appreciated ABDOMINAL: NABS 4, no hepatosplenomegaly or masses appreciated, no rebound rigidity or distention, no pain to palpation, EXTREMITIES: No clubbing, cyanosis or edema appreciated NEUROLOGICAL: No focal neurologic deficits appreciated PSYCHOLOGICAL: Her affect is somewhat flat LABORATORY DATA, MICROBIOLOGY: Please see below. IMAGING STUDIES: ASSESSMENT AND PLAN: This is a 63-year-old female who presented to the emergency department with the complaint of generalized weakness and lightheadedness and found to be very hypotensive. PROBLEMS: 1. Hypotension likely secondary to adrenal insufficiency -The patient has been maintained on 100 mg of hydrocortisone every 8H. We will begin to wean this down. to q12 hours. Her blood pressure has improved but is still soft. Continue to monitor. The patient denied any lightheadedness or feelings of the room spinning on physical examination. Her sodium has also normalized, we will stop her IV fluids at this time. She is tolerating by mouth intake. There is a pro-calcitonin level that is pending, she is afebrile without a white count, low suspicion for infectious etiology. She is undergoing a cardiac exam today, less likely that this is related to cardiogenic shock, in any event we will see what her echocardiogram shows today. She continues on Flornief. 2. Difficult living situation -The patient has had numerous presentations to the hospital, we'll have to consult PFS for either possible placement or home with services. The patient may no longer be able to take care of herself adequately by herself at home. PT OT consulted. 3. COPD -Patient is not short of breath on physical examination and does not complain of such. -Continue Pulmicort and albuterol 4. DM 2 -We will discontinue metformin and switch to sliding scale insulin with hypoglycemic protocol. 5. History of orthostatic hypotension -Patient is not dizzy on physical examination today. -Orthostatics have been positive -Expect this will improve with steroids and her IV fluid -PT OT consulted -Continue fall precautions 6. History of CVA -She is continued on Plavix for now, will discuss this with patient tomorrow to find out exact time of CVA event Disposition: We will consider weaning down the patient's hydrocortisone further tomorrow, we are stopping IV fluids. We will see how she does in terms of her lightheadedness tomorrow. She does need PFS consult for either placement or home with services as she may be unable to care for herself any longer at home by herself VS,Lisa, I+O VS, Lisa, I+O Laboratory Tests 11/07/18 16:44 Red Blood Count 4.78, Mean Corpuscular Volume 93.7, Mean Corpuscular Hemoglobin 31.8, Mean Corpuscular Hemoglobin Concent 33.9, Red Cell Distribution Width 15.1 H, Neutrophils (%) (Auto) 64.9, Lymphocytes (%) (Auto) 25.1, Monocytes (%) (Auto) 8.2 H, Eosinophils (%) (Auto) 0.5, Basophils (%) (Auto) 0.8, Neutrophils # (Auto) 9.5 H, Lymphocytes # (Auto) 3.7, Monocytes # (Auto) 1.2 H, Eosinophils # (Auto) 0.1, Basophils # (Auto) 0.1 11/08/18 04:58 Red Blood Count 3.92 L, Mean Corpuscular Volume 96.7 H, Mean Corpuscular Hemoglobin 32.4, Mean Corpuscular Hemoglobin Concent 33.5, Red Cell Distribution Width 15.2 H, Calcium Level 7.8 L, Aspartate Amino Transf (AST/SGOT) 15, Alanine Aminotransferase (ALT/SGPT) 20, Alkaline Phosphatase 88, Total Bilirubin 0.5, Total Protein 5.6 L, Albumin 2.6 #L Vital Signs Date Time Temp Pulse Resp B/P (MAP) Pulse Ox O2 Delivery O2 Flow Rate FiO2 11/08/18 12:00 98.0 94 18 106/58 (74) 93 11/08/18 05:00 1.0 11/07/18 22:25 Room Air I&O- Last 24 Hours up to 6 AM 11/08/18 06:00 Intake Total 3690 ml Output Total 300 ml Balance 3390 ml GME ATTESTATION GME ATTESTATION My faculty preceptor for this patient encounter was physically present during the encounter and was fully available. All aspects of the patient interview, examination, medical decision making process, and medical care plan development were reviewed and approved by the faculty preceptor. The faculty preceptor is aware and concurs with the plan as stated in the body of this note and will attest to such by his/her cosignature. ATTENDING NOTE I saw and evaluated the patient. I agree with the findings and plan of care as documented in the resident's note SUMEET HODGES DO November 08, 2018 13:48 LIBRADO BEAUCHAMP MD Nov 11, 2018 12:21
[2018-11-08] MEDS: ENOXAPARIN 40 MG/0.4 ML SYRINGE (J1650) SC SCH (21:05)
[2018-11-09] VITALS (8 sets, daily range): BP systolic 95–163; BP diastolic 54–93
[2018-11-09] MEDS: NS 1,000 ML IV SCH (02:59)
--- NOTE | 2018-11-09 06:18 | ECHO ---
DATE OF STUDY: 11/08/2018 REFERRING PHYSICIAN: LETY Dawn INDICATION: Syncope. HEIGHT: 158 cm. WEIGHT: 40.6 kg. 2-D MEASUREMENTS: Left atrium: 3.2 cm Aortic root: 2.6 cm Ventricular septum: 1.01 cm Posterior wall: 1.00 cm Left ventricle diastole: 4.1 cm Aortic annulus: 1.8 cm Inferior vena cava: 1.6 cm with normal respiratory variation of inferior vena cava DOPPLER MEASUREMENTS: Aortic valve velocity: 124 cm/sec LVOT velocity: 105 cm/sec LVOT VTI: 22.6 cm Mitral E velocity: 92.8 cm/sec Mitral A velocity: 99.7 cm/sec Mitral deceleration time: 130 ms Pulmonary artery systolic pressure 27 mmHg MITRAL ANNULAR TISSUE DOPPLER: E prime septal: 7.1 cm/sec E prime lateral: 7.4 cm/sec DESCRIPTION: The rhythm was sinus. Image quality was good. This was a 2-D, M-mode, color flow Doppler and pulse wave Doppler examination and included mitral annular tissue Doppler. CONCLUSIONS: 1. Normal left ventricle internal dimensions and wall thickness. Normal regional LV wall motion and wall thickening. Normal LV systolic function. LVEF 70% by visual estimate. Normal LV diastolic function for age. 2. No pericardial effusion. 3. Mild mitral annular calcification. No mitral regurgitation. 4. Otherwise normal echocardiogram Doppler findings.
[2018-11-09] MEDS: FLUDROCORTISONE ACETATE 0.1 MG TAB PO SCH (08:13)
[2018-11-09] MEDS: HumaLOG INSULIN (NovoLOG) PER UNIT SC SCH ×4 (08:13→21:00)
[2018-11-09] MEDS: THIAMINE 100 MG TAB PO SCH (08:13)
[2018-11-09] MEDS: CitaloPRAM (CeleXA) 10 MG TABLET PO SCH (08:13)
[2018-11-09] MEDS: CLOPIDOGREL 75 MG TAB PO SCH (08:13)
[2018-11-09] MEDS: FOLIC ACID 1 MG TAB PO SCH (08:13)
[2018-11-09] MEDS: ATORVASTATIN 20 MG TAB PO SCH (08:13)
[2018-11-09] MEDS: ASPIRIN 81 MG ENTERIC TAB PO SCH (08:13)
[2018-11-09] MEDS: BUDESONIDE 0.5 MG/2 ML INHALATION SUSPENSION INH SCH ×2 (08:36→20:06)
[2018-11-09] MEDS: HYDROCORTISONE 100 MG/2 ML VIAL (J1720) IV SCH (09:53)
--- NOTE | 2018-11-09 12:34 | IPNPDOC ---
Text Note Date of Service The patient was seen on 11/09/18. NOTE SUBJECTIVE: Ms. Simmons is seen on bedside rounds this morning. She is laying bed and appears comfortable. She has no complaints for me. She is comfortable and in no acute distress, she is speaking in full sentences. She denies any shortness of breath, cough, chest pain, nausea vomiting or fevers. She states she is going to keep smoking once shes discharged. OBJECTIVE PHYSICAL EXAMINATION: VITAL SIGNS: Please see below. GENERAL: This is a 63-year-old female appearing older than her stated age, she is lying in bed comfortable in no acute distress and speaking in complete sentences. HEENT: Moist mucous membranes, no JVD, EOMI, she does have some healing lacerations on forehead that are scabbed over, clean and intact without blood or pus exudation CARDIOVASCULAR: Normal S1 and S2, no murmurs, rubs or gallops appreciated RESPIRATORY: Clear to auscultation bilaterally, no rales, rhonchi or wheezing appreciated ABDOMINAL: NABS 4, no hepatosplenomegaly or masses appreciated, no rebound rigidity or distention, no pain to palpation, EXTREMITIES: No clubbing, cyanosis or edema appreciated NEUROLOGICAL: No focal neurologic deficits appreciated PSYCHOLOGICAL: Her affect is flat LABORATORY DATA, MICROBIOLOGY: Please see below. IMAGING STUDIES: ASSESSMENT AND PLAN: This is a 63-year-old female who presented to the emergency department with the complaint of generalized weakness and lightheadedness and found to be markedly hypotensive. PROBLEMS: 1. Hypotension likely secondary to adrenal insufficiency -The patient has been maintained on 100 mg of hydrocortisone every 12H, we will change this beginning tomorrow morning to mimic physiological steroid dosing of hydrocortisone 40 mg qAM and 20 mg qPM. Her blood pressure has improved, 116/58 today. D/c orthostatics, they have improved. She denied light headedness. She is eating and drinking well, we are going to d/c fluids. There is a pro-calcitonin that is normal, she is afebrile now without a white count, low suspicion for infectious etiology. She did have a slight elevation in temp last night to 100.7 and was a bit tachycardic, this could be secondary to alcohol w/d. Although patient states she is not having tremors, auditory or visual hallucinations, anxiety but she is fatigued. Will hold CIWA protocol for now, but could consider Ativan or Serax if she should demonstrated w/d sx. 2. Difficult living situation/ability to care for herself at home/medical non- compliance -The patient has had numerous presentations to the hospital, PFS consulted for either possible placement or home with services. The patient may no longer be able to take care of herself adequately by herself at home. PT/OT consulted. 3. COPD -Patient is not short of breath on physical examination and does not complain of such. -Continue Pulmicort and albuterol 4. DM 2 -C/w sliding scale insulin with hypoglycemic protocol 5. History of orthostatic hypotension -Patient is not dizzy on physical examination today -Orthostatics have improved., d/c -PT OT consulted -Continue fall precautions 6. History of CVA -She is continued on Plavix for now Disposition: We are going to change to PO hydrocortisone tomorrow. The patient will work with PT. She needs to meet with PFS to determine if she needs services at home, if she cant take care of herself. She is [facility]. VS,Fishbone, I+O VS, Fishbone, I+O Vital Signs Date Time Temp Pulse Resp B/P (MAP) Pulse Ox O2 Delivery O2 Flow Rate FiO2 11/09/18 08:00 98 116/58 (77) 96 118/58 (78) 98 110/57 (74) 11/09/18 08:00 1.0 11/09/18 04:00 98.3 18 96 11/07/18 22:25 Room Air I&O- Last 24 Hours up to 6 AM 11/09/18 06:00 Intake Total 4080 ml Output Total 1675 ml Balance 2405 ml GME ATTESTATION GME ATTESTATION My faculty preceptor for this patient encounter was physically present during the encounter and was fully available. All aspects of the patient interview, examination, medical decision making process, and medical care plan development were reviewed and approved by the faculty preceptor. The faculty preceptor is a best and concurs with the plan as stated in the body of this note and will attest to such by his/her cosignature. ATTENDING NOTE I saw and evaluated the patient. I agree with the findings and plan of care as documented in the resident's note SUMEET HODGES DO November 09, 2018 12:34 LIBRADO BEAUCHAMP MD Nov 11, 2018 12:25
[2018-11-09] MEDS: ENOXAPARIN 40 MG/0.4 ML SYRINGE (J1650) SC SCH (21:55)
[2018-11-09] MEDS ORDERED: HYDROCORTISONE 100 MG/2 ML VIAL (J1720) IV ONE (22:00)
[2018-11-10 02:00] VITALS: BP 134/76
[2018-11-10 06:00] VITALS: BP 128/76
[2018-11-10 06:26] LABS: HEMATOCRIT 38.5 % (36.0-47.0); HEMOGLOBIN 13.5 g/dl (12.0-15.5); MEAN CORPUSCULAR HEMOGLOBIN 32.6 pg (27.0-33.0); MEAN CORPUSCULAR HGB CONC 35.1 g/dl (32.0-36.5); PLATELET COUNT, AUTOMATED 248 10^3/uL (150-450); RED BLOOD COUNT 4.14 10^6/uL (4.00-5.40); WHITE BLOOD COUNT 16.9 10^3/uL (4.0-10.0)
[2018-11-10] MEDS: BUDESONIDE 0.5 MG/2 ML INHALATION SUSPENSION INH SCH ×2 (07:21→19:58)
[2018-11-10] MEDS: HumaLOG INSULIN (NovoLOG) PER UNIT SC SCH ×4 (09:13→20:48)
[2018-11-10] MEDS: THIAMINE 100 MG TAB PO SCH (09:13)
[2018-11-10] MEDS: HYDROCORTISONE 10 MG TAB PO SCH ×2 (09:14→20:32)
[2018-11-10] MEDS: FLUDROCORTISONE ACETATE 0.1 MG TAB PO SCH (09:14)
[2018-11-10] MEDS: ASPIRIN 81 MG ENTERIC TAB PO SCH (09:14)
[2018-11-10] MEDS: CLOPIDOGREL 75 MG TAB PO SCH (09:14)
[2018-11-10] MEDS: FOLIC ACID 1 MG TAB PO SCH (09:14)
[2018-11-10] MEDS: ATORVASTATIN 20 MG TAB PO SCH (09:14)
[2018-11-10] MEDS: CitaloPRAM (CeleXA) 10 MG TABLET PO SCH (09:14)
[2018-11-10 09:19] LABS: BLOOD UREA NITROGEN 8 MG/DL (7-18); CARBON DIOXIDE LEVEL 38 MEQ/L (21-32); CHLORIDE LEVEL 92 MEQ/L (98-107); CREATININE FOR GFR 0.43 MG/DL (0.55-1.30); GLOMERULAR FILTRATION RATE > 60.0 (>45); GLUCOSE, FASTING 110 MG/DL (70-100); POTASSIUM SERUM 2.2 MEQ/L (3.5-5.1); SODIUM LEVEL 138 MEQ/L (136-145)
[2018-11-10] MEDS ORDERED: POTASSIUM CHLORIDE 10 MEQ SR TABLET PO ONE (09:45)
--- NOTE | 2018-11-10 12:19 | IPNPDOC ---
Text Note Date of Service The patient was seen on 11/10/18. NOTE SUBJECTIVE: Ms. Simmons is seen on bedside rounds this morning. She is laying bed and appears comfortable. She again has no complaints for me. She is comfortable and in no acute distress, she is speaking in full sentences. She denies any shortness of breath, cough, chest pain, nausea vomiting or fevers. She would like to go back to sleep. OBJECTIVE PHYSICAL EXAMINATION: VITAL SIGNS: Please see below. GENERAL: This is a 63-year-old female appearing older than her stated age, she is lying in bed comfortable in no acute distress HEENT: Moist mucous membranes, no JVD, EOMI, she does have some healing lacerations on forehead that are scabbed over and in tact CARDIOVASCULAR: Normal S1 and S2, no murmurs, rubs or gallops appreciated RESPIRATORY: Clear to auscultation bilaterally, no rales, rhonchi or wheezing appreciated ABDOMINAL: NABS 4, no hepatosplenomegaly or masses appreciated, no rebound rigidity or distention, no pain to palpation, EXTREMITIES: No clubbing, cyanosis or edema appreciated NEUROLOGICAL: No focal neurologic deficits appreciated PSYCHOLOGICAL: Her affect is flat LABORATORY DATA, MICROBIOLOGY: Please see below. IMAGING STUDIES: ASSESSMENT AND PLAN: This is a 63-year-old female who presented to the emergency department with the complaint of generalized weakness and lightheadedness and found to be markedly hypotensive. PROBLEMS: 1. Hypotension likely secondary to adrenal insufficiency -The patient has been maintained on 100 mg of hydrocortisone every 12H, we will change this today to begin to mimic physiological steroid dosing of hydroco rtisone 40 mg qAM and 20 mg qPM. Her blood pressure has improved, 128/76 today. She denied light headedness. She is eating and drinking well, s/p IVF. There is a pro-calcitonin that is normal, she is afebrile now, bump in WBC likely secondary to steroid use. We will monitor. Low suspicion for infectious etiology. No increase in temps, but she did have a slight elevation in temp two nights ago to 100.7 and was a bit tachycardic, this could be secondary to alcohol w/d. Although patient has always adamantly refused experiencing any tremors, auditory or visual hallucinations, anxiety but she is fatigued. Will hold CIWA protocol for now, but could consider Ativan or Serax if she should demonstrated w/d sx. 2. Difficult living situation/ability to care for herself at home/medical non-compliance -The patient has had numerous presentations to the hospital, PFS consulted for either possible placement or home with services. There is talk of the [facility] housing if possible. She has not cleared physical therapy yet. The patient may no longer be able to take care of herself adequately by herself at home. 3. Hypokalemia -K is 2.2 today, will supplement and check Mg level. 4. COPD -Patient is not short of breath on physical examination and does not complain of such. -Continue Pulmicort and albuterol 5. DM 2 -C/w sliding scale insulin with hypoglycemic protocol 6. History of orthostatic hypotension -Patient is not dizzy on physical examination today -Orthostatics have improved and were discontinued -PT OT consulted and working with patient -Continue fall precautions 7. History of CVA -She is continued on Plavix for now, she can't remember when her stroke was Disposition: We are changing to PO hydrocortisone today. The patient will continue to work with PT. She may need services at home, if she cant take care of herself. VS,Fishbone, I+O VS, Fishbone, I+O Laboratory Tests 11/10/18 05:45 Calcium Level 8.0 L 11/10/18 05:47 Red Blood Count 4.14, Mean Corpuscular Volume 93.0, Mean Corpuscular Hemoglobin 32.6, Mean Corpuscular Hemoglobin Concent 35.1, Red Cell Distribution Width 14.4 Vital Signs Date Time Temp Pulse Resp B/P (MAP) Pulse Ox O2 Delivery O2 Flow Rate FiO2 11/10/18 06:00 98.8 80 18 128/76 (93) 93 11/09/18 08:00 1.0 11/07/18 22:25 Room Air I&O- Last 24 Hours up to 6 AM 11/10/18 06:00 Intake Total 2540 ml Output Total 3100 ml Balance -560 ml GME ATTESTATION GME ATTESTATION My faculty preceptor for this patient encounter was physically present during the encounter and was fully available. All aspects of the patient interview, examination, medical decision making process, and medical care plan development were reviewed and approved by the faculty preceptor. The faculty preceptor is aware and concurs with the plan as stated in the body of this note and will atte st to such by his/her cosignature. ATTENDING NOTE I saw and evaluated the patient. I agree with the findings and plan of care as documented in the resident's note SUMEET HODGES DO November 10, 2018 12:19 LIBRADO BEAUCHAMP MD Nov 11, 2018 12:34
[2018-11-10 14:00] VITALS: BP 102/60
[2018-11-10] MEDS: MAG SULF 1GM/100ML (MAG RUN) 1 GM in APPROPRIATE DILUENT 1 EA IV SCH ×2 (17:29→18:25)
[2018-11-10 17:30] VITALS: BP 140/80
[2018-11-10] MEDS: ENOXAPARIN 40 MG/0.4 ML SYRINGE (J1650) SC SCH (20:33)
[2018-11-10] MEDS: MAGNESIUM CHLORIDE 64 MG TABCR (SLO MAG) PO SCH (20:33)
[2018-11-10] MEDS ORDERED: SODIUM CHLORIDE 0.9% 1000ML IV ONE (21:30)
[2018-11-10 22:00] VITALS: BP 85/54
[2018-11-10 22:58] VITALS: BP 130/78
[2018-11-11] VITALS (7 sets, daily range): BP systolic 90–101; BP diastolic 53–69
[2018-11-11 05:55] LABS: HEMATOCRIT 39.1 % (36.0-47.0); HEMOGLOBIN 13.3 g/dl (12.0-15.5); MEAN CORPUSCULAR HEMOGLOBIN 31.1 pg (27.0-33.0); MEAN CORPUSCULAR VOLUME 91.6 fl (80.0-96.0); PLATELET COUNT, AUTOMATED 248 10^3/uL (150-450); RED BLOOD COUNT 4.27 10^6/uL (4.00-5.40); WHITE BLOOD COUNT 21.1 10^3/uL (4.0-10.0)
[2018-11-11 06:19] LABS: BLOOD UREA NITROGEN 13 MG/DL (7-18); CALCIUM LEVEL 8.2 MG/DL (8.8-10.2); CARBON DIOXIDE LEVEL 36 MEQ/L (21-32); CHLORIDE LEVEL 94 MEQ/L (98-107); CREATININE FOR GFR 0.41 MG/DL (0.55-1.30); GLOMERULAR FILTRATION RATE > 60.0 (>45); GLUCOSE, FASTING 88 MG/DL (70-100); POTASSIUM SERUM 2.8 MEQ/L (3.5-5.1); SODIUM LEVEL 136 MEQ/L (136-145)
[2018-11-11] MEDS: HumaLOG INSULIN (NovoLOG) PER UNIT SC SCH ×4 (07:30→21:00)
[2018-11-11] MEDS: BUDESONIDE 0.5 MG/2 ML INHALATION SUSPENSION INH SCH ×2 (07:39→20:23)
[2018-11-11] MEDS ORDERED: POTASSIUM CHLORIDE 10 MEQ SR TABLET PO ONE (08:15)
[2018-11-11 08:16] LABS: MAGNESIUM LEVEL 1.8 MG/DL (1.8-2.4)
[2018-11-11] MEDS ORDERED: POTASSIUM CHLORIDE 10 MEQ SR TABLET PO SCH (09:00)
[2018-11-11] MEDS: NS 1,000 ML IV SCH (09:31)
[2018-11-11] MEDS: FLUDROCORTISONE ACETATE 0.1 MG TAB PO SCH (09:31)
[2018-11-11] MEDS: THIAMINE 100 MG TAB PO SCH (09:31)
[2018-11-11] MEDS: ATORVASTATIN 20 MG TAB PO SCH (09:32)
[2018-11-11] MEDS: ASPIRIN 81 MG ENTERIC TAB PO SCH (09:32)
[2018-11-11] MEDS: CitaloPRAM (CeleXA) 10 MG TABLET PO SCH (09:32)
[2018-11-11] MEDS: HYDROCORTISONE 10 MG TAB PO SCH ×2 (09:32→20:17)
[2018-11-11] MEDS: CLOPIDOGREL 75 MG TAB PO SCH (09:33)
[2018-11-11] MEDS: FOLIC ACID 1 MG TAB PO SCH (09:33)
[2018-11-11] MEDS: MAGNESIUM CHLORIDE 64 MG TABCR (SLO MAG) PO SCH ×2 (09:33→20:17)
--- NOTE | 2018-11-11 12:02 | IPNPDOC ---
Date Seen The patient was seen on 11/11/18. Progress Note SUBJECTIVE: Patient tells me that she is doing well she denies lightheadedness or dizziness palpitations, until she has had some accidents with urination and that she is not able to always make it to the bathroom in time she denies dysuria otherwise patient denies chest pain, shortness breath, nausea, vomiting, fevers, chills OBJECTIVE PHYSICAL EXAMINATION: VITAL SIGNS: Please see below. GENERAL: Flat affect a slim elderly female sitting up in bed awake alert oriented speaking in complete sentences no acute distress HEENT: Moist mucous membranes no elevation and CVP CARDIOVASCULAR: S1 S2 regular no additional heart sounds appreciated. RESPIRATORY: Clear to auscultation bilaterally. ABDOMINAL: Bowel sounds present abdomen soft and nontender EXTREMITIES: No clubbing cyanosis or edema NEUROLOGICAL: Spontaneously moves all 4 extremities cranial 2 through 12 grossly intact no gross focal deficits appreciated PSYCHOLOGICAL: Flat affect LABORATORY DATA, MICROBIOLOGY: Please see below. IMAGING STUDIES: Chest x-ray:No acute cardiopulmonary process appreciated. Head CT:Age related atrophy and microvascular ischemic changes. Stable changes related to old infarction. No acute intracranial hemorrhage, infarction, or mass/mass effect. ASSESSMENT AND PLAN: This is a 63-year-old female with adrenal insufficiency. PROBLEMS: 1. Adrenal insufficiency: Patient seen in the ER 3 times in the last 2 weeks her hypotension and orthostasis previously during a prolonged hospitalization were felt to be related to her adrenal insufficiency and she did improve with hydrocortisone. At this time she seems to be doing quite well on 40 of hydrocortisone in the morning and 20 in the evening. Her blood pressure is somewhat lower than usual this morning her chloride level is low I suspect she may be somewhat dehydrated now provided with some gentle normal saline. 2. Hypokalemia: Likely related to her adrenal insufficiency she is on fludrocortisone 0.1 mg daily we're providing her with supplementation, we will replete her hypomagnesemia as well. 3. Alcohol abuse: Cessation counseling provided she was not positive for ethanol time of her admission however several days prior to this he presented to the emergency room intoxicated brought in by police after soiling herself. She is being provided with folic acid thiamine I will start her on a multivitamin as well 4. 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 This is her second ICU admission within the last 3 weeks given the critical nature of her illness I do not feel she is safe to her previous living environment 5. Coronary artery disease: She is on aspirin and statin and Plavix, not on a beta bia likely secondary to her chronic hypotension: 6. COPD: Stable she is at her baseline restrictive status continue with Pulmicort 7. Schizophrenia she has a flat affect: But thus far has been cooperative with care not currently receiving any medications for this 8. Type 2 diabetes: Home metformin is on hold, insulin sliding scale hypoglycemic protocol 9. Urinary incontinence: The etiology is not immediately clear I did concern for urge incontinence as such I'll check a postvoid residual to ensure that there is no overflow incontinence. She may benefit from oxybutynin if this is the case DVT prophylaxis: Lovenox DISPOSITION: Will require placement PFS involved. VS, I&O, 24H, Fishbone Vital Signs/I&O Vital Signs Date Time Temp Pulse Resp B/P (MAP) Pulse Ox O2 Delivery O2 Flow Rate FiO2 11/11/18 10:00 97.7 85 19 101/61 (74) 91 11/09/18 08:00 1.0 11/07/18 22:25 Room Air I&O- Last 24 Hours up to 6 AM 11/11/18 06:00 Intake Total 2840 ml Output Total 400 ml Balance 2440 ml Laboratory Data 24H LABS Laboratory Tests 2 11/10/18 12:04: Bedside Glucose (Misc Panel) 169H 11/10/18 16:36: Bedside Glucose (Misc Panel) 180H 11/10/18 20:46: Bedside Glucose (Misc Panel) 203H 11/11/18 05:33: Nucleated Red Blood Cells % (auto) 0.0, Anion Gap 6L, Glomerular Filtration Rate > 60.0, Blood Urea Nitrogen 13#, Creatinine 0.41L, Sodium Level 136, Potassium Level 2.8#*L, Chloride Level 94L, Carbon Dioxide Level 36H, Calcium Level 8.2L, Magnesium Level 1.8 CBC/BMP Laboratory Tests 11/11/18 05:33 Red Blood Count 4.27, Mean Corpuscular Volume 91.6, Mean Corpuscular Hemoglobin 31.1, Mean Corpuscular Hemoglobin Concent 34.0, Red Cell Distribution Width 14.8 H, Calcium Level 8.2 L Microbiology Microbiology 11/07/18 Blood Culture - Preliminary, Resulted No Growth after 72 hours. All specime... 11/07/18 Blood Culture - Preliminary, Resulted No Growth after 72 hours. All specime... 11/08/18 Urine Culture, Received Pending LIBRADO BEAUCHAMP MD Nov 11, 2018 12:02
[2018-11-11] MEDS ORDERED: MAG SULF 1GM/100ML (MAG RUN) 1 GM in APPROPRIATE DILUENT 1 EA IV ONE (13:00)
[2018-11-11] MEDS: MULTIVITAMINS/MINERALS THERAP 1 TAB PO SCH (13:17)
[2018-11-11 17:26] LABS: BLOOD UREA NITROGEN 12 MG/DL (7-18); CARBON DIOXIDE LEVEL 32 MEQ/L (21-32); CHLORIDE LEVEL 97 MEQ/L (98-107); CREATININE FOR GFR 0.47 MG/DL (0.55-1.30); GLOMERULAR FILTRATION RATE > 60.0 (>45); GLUCOSE, FASTING 158 MG/DL (70-100); POTASSIUM SERUM 3.5 MEQ/L (3.5-5.1); SODIUM LEVEL 136 MEQ/L (136-145)
[2018-11-11] MEDS: POTASSIUM CHLORIDE 10 MEQ SR TABLET PO SCH (20:16)
[2018-11-11] MEDS: ENOXAPARIN 40 MG/0.4 ML SYRINGE (J1650) SC SCH (20:16)
[2018-11-11] MEDS ORDERED: IPRATROPIUM 0.5MG/ALBUTEROL 2.5MG INH SOL UD 3ML (DUONEB)(J7620) NEB PRN (20:45)
[2018-11-12] MEDS: NS 1,000 ML IV SCH (00:05)
[2018-11-12 02:00] VITALS: BP 134/71
[2018-11-12] MEDS: IPRATROPIUM 0.5MG/ALBUTEROL 2.5MG INH SOL UD 3ML (DUONEB)(J7620) NEB SCH ×4 (04:47→20:03)
[2018-11-12 04:51] LABS: ABG BASE EXCESS 5.1 (-2.0-2.0); ABG HCO3 29.8 MEQ/L (22.0-26.0); ABG O2 SATURATION 99.5 % (95.0-99.0); ABG PARTIAL PRESSURE CO2 43.9 mmHg (35.0-45.0); ABG PARTIAL PRESSURE O2 216.7 mmHg (75.0-100.0); ABG STANDARD HCO3 29.1 MEQ/L (22.0-26.0); ABG TOTAL CO2 31.1 MEQ/L (23.0-31.0); ABG pH (ARTERIAL) 7.449 UNITS (7.350-7.450)
[2018-11-12 06:00] VITALS: BP 131/78
[2018-11-12 06:05] LABS: HEMATOCRIT 38.9 % (36.0-47.0); HEMOGLOBIN 13.3 g/dl (12.0-15.5); MEAN CORPUSCULAR HEMOGLOBIN 32.4 pg (27.0-33.0); MEAN CORPUSCULAR HGB CONC 34.2 g/dl (32.0-36.5); MEAN CORPUSCULAR VOLUME 94.6 fl (80.0-96.0); PLATELET COUNT, AUTOMATED 236 10^3/uL (150-450); RED BLOOD COUNT 4.11 10^6/uL (4.00-5.40); WHITE BLOOD COUNT 16.9 10^3/uL (4.0-10.0)
[2018-11-12 06:29] LABS: BLOOD UREA NITROGEN 10 MG/DL (7-18); CARBON DIOXIDE LEVEL 30 MEQ/L (21-32); CHLORIDE LEVEL 98 MEQ/L (98-107); CREATININE FOR GFR 0.38 MG/DL (0.55-1.30); GLOMERULAR FILTRATION RATE > 60.0 (>45); GLUCOSE, FASTING 87 MG/DL (70-100); POTASSIUM SERUM 3.4 MEQ/L (3.5-5.1); SODIUM LEVEL 137 MEQ/L (136-145)
[2018-11-12] MEDS: BUDESONIDE 0.5 MG/2 ML INHALATION SUSPENSION INH SCH ×2 (07:12→20:02)
[2018-11-12] MEDS: HumaLOG INSULIN (NovoLOG) PER UNIT SC SCH ×4 (07:19→20:59)
--- NOTE | 2018-11-12 07:20 | REP ---
Clinical: Hypoxia . Comparison: 11/07/2018 . Findings: The mediastinum and cardiac silhouette are stable and within normal limits for portable technique. Zswvdw-P-Icer with tip in the SVC. The lung garcia demonstrate chronic stable changes without acute consolidation, effusion, or pneumothorax. Skeletal structures are intact. Impression: No acute cardiopulmonary process appreciated. Electronically Signed by Reji Dupree MD 11/12/2018 07:11 A
[2018-11-12] MEDS: ATORVASTATIN 20 MG TAB PO SCH (08:02)
[2018-11-12] MEDS: ASPIRIN 81 MG ENTERIC TAB PO SCH (08:03)
[2018-11-12] MEDS: MULTIVITAMINS/MINERALS THERAP 1 TAB PO SCH (08:03)
[2018-11-12] MEDS: POTASSIUM CHLORIDE 10 MEQ SR TABLET PO SCH (08:03)
[2018-11-12] MEDS: THIAMINE 100 MG TAB PO SCH (08:03)
[2018-11-12] MEDS: CitaloPRAM (CeleXA) 10 MG TABLET PO SCH (08:03)
[2018-11-12] MEDS: HYDROCORTISONE 10 MG TAB PO SCH ×2 (08:03→20:58)
[2018-11-12] MEDS: FOLIC ACID 1 MG TAB PO SCH (08:03)
[2018-11-12] MEDS: CLOPIDOGREL 75 MG TAB PO SCH (08:03)
[2018-11-12] MEDS: FLUDROCORTISONE ACETATE 0.1 MG TAB PO SCH (08:04)
[2018-11-12] MEDS: MAGNESIUM CHLORIDE 64 MG TABCR (SLO MAG) PO SCH ×2 (08:04→20:58)
[2018-11-12 10:29] VITALS: BP 129/71
--- NOTE | 2018-11-12 11:06 | IPNPDOC ---
Date Seen The patient was seen on 11/12/18. Progress Note SUBJECTIVE: Patient tells me that she is doing well she denies lightheadedness or dizziness palpitations, she tells me that she still having some urgency and frequency with her urine. Otherwise patient denies chest pain, shortness breath, nausea, vomiting, fevers, chills OBJECTIVE PHYSICAL EXAMINATION: VITAL SIGNS: Please see below. GENERAL: Flat affect, slim elderly female lying flat in bed awake alert oriented speaking in complete sentences no acute distress HEENT: Moist mucous membranes no elevation and CVP CARDIOVASCULAR: S1 S2 regular no additional heart sounds appreciated. RESPIRATORY: Clear to auscultation bilaterally. ABDOMINAL: Bowel sounds present abdomen soft and nontender EXTREMITIES: No clubbing cyanosis or edema NEUROLOGICAL: Spontaneously moves all 4 extremities cranial 2 through 12 grossly intact no gross focal deficits appreciated PSYCHOLOGICAL: Flat affect and unchanged LABORATORY DATA, MICROBIOLOGY: Please see below. IMAGING STUDIES: Admission Chest x-ray:No acute cardiopulmonary process appreciated. Head CT:Age related atrophy and microvascular ischemic changes. Stable changes related to old infarction. No acute intracranial hemorrhage, infarction, or mass/mass effect. 11/12 x-ray:No acute cardiopulmonary process appreciated. ASSESSMENT AND PLAN: This is a 63-year-old female with adrenal insufficiency. PROBLEMS: 1. Adrenal insufficiency: Patient seen in the ER 3 times in the last several weeks her hypotension and orthostasis previously during a prolonged hospitalization were felt to be related to her adrenal insufficiency and she did improve with hydrocortisone. At this time she seems to be doing quite well on 40 of hydrocortisone in the morning and 20 in the evening. 2. Hypokalemia: Likely related to her adrenal insufficiency she is on fludrocortisone 0.1 mg daily we're providing her with supplementation, it is improved at this time. We'll keep her on 20 mEq by mouth daily and monitor with daily labs 3. Alcohol abuse: Cessation counseling provided she was not positive for ethanol at the time of her admission however several days prior to this he presented to the emergency room intoxicated brought in by police after soiling herself. She is being provided with folic acid thiamine I have started her on a multivitamin as well 4. Medical noncompliance: We did have a Lengthy conversations once again reiterating that she is not stable for disposition home to independent living where she was previously discharged twice from [facility] within the last several weeks and failed on both occasions secondary to noncompliance and alcohol intoxication. This is her second ICU admission within the last 3 weeks given the critical nature of her illness I do not feel she is safe to return to her previous living environment. PFS help greatly appreciated 5. Coronary artery disease: She is on aspirin and statin and Plavix, not on a beta bia likely secondary to her chronic hypotension: 6. COPD: Stable she is at her baseline restrictive status continue with Pulmicort 7. Schizophrenia she has a flat affect: But thus far has been cooperative with care not currently receiving any medications for this 8. Type 2 diabetes: Home metformin is on hold, insulin sliding scale hypoglycemic protocol 9. Urinary incontinence: Her UA was not grossly abnormal however her culture is polymicrobial with 50,000 or less colony-forming units. However she does have symptoms of urgency frequency or incontinence at this time. I'll empirically treat her with by mouth levofloxacin as well as Ceftin urine ordered to cover the polymicrobial nature of the infection based on cultures and sensitivities. Her 5 day course and see if she has improvement in her symptoms. If she fails to have improvement in her incontinence symptoms would consider oxybutynin for overactive bladder. Her postvoid residuals are not elevated she is not experiencing overflow incontinence. Likely urge incontinence in that setting DVT prophylaxis: Lovenox DISPOSITION: Will require placement PFS involved. VS, I&O, 24H, [facility] Vital Signs/I&O Vital Signs Date Time Temp Pulse Resp B/P (MAP) Pulse Ox O2 Delivery O2 Flow Rate FiO2 11/12/18 10:29 97.4 90 19 129/71 (90) 93 0.5 11/07/18 22:25 Room Air I&O- Last 24 Hours up to 6 AM 11/12/18 06:00 Intake Total 4927.5 ml Output Total 250 ml Balance 4677.5 ml Laboratory Data 24H LABS Laboratory Tests 2 11/11/18 11:24: Bedside Glucose (Misc Panel) 110 11/11/18 16:49: Bedside Glucose (Misc Panel) 174H 11/11/18 16:53: Anion Gap 7L, Glomerular Filtration Rate > 60.0, Blood Urea Nitrogen 12, Creatinine 0.47L, Sodium Level 136, Potassium Level 3.5#, Chloride Level 97L, Carbon Dioxide Level 32, Calcium Level 8.0L 11/11/18 20:22: Bedside Glucose (Misc Panel) 93 11/12/18 04:45: Blood Gas Bicarbonate Standard 29.1H, Arterial Blood pH 7.449, Arterial Blood Partial Pressure CO2 43.9, Arterial Blood Partial Pressure O2 216.7H, Arterial Blood Total CO2 31.1H, Arterial Blood HCO3 29.8H, Arterial Blood Base Excess 5.1H, Arterial Blood Oxygen Saturation 99.5H, Arterial Blood Gas Puncture Site UNKNOWN 11/12/18 05:10: Nucleated Red Blood Cells % (auto) 0.0, Anion Gap 9, Glomerular Filtration Rate > 60.0, Blood Urea Nitrogen 10, Creatinine 0.38L, Sodium Level 137, Potassium Level 3.4L, Chloride Level 98, Carbon Dioxide Level 30, Calcium Level 8.0L, Magnesium Level 2.0 CBC/BMP Laboratory Tests 11/11/18 16:53 Calcium Level 8.0 L 11/12/18 05:10 Calcium Level 8.0 L, Red Blood Count 4.11, Mean Corpuscular Volume 94.6, Mean Corpuscular Hemoglobin 32.4, Mean Corpuscular Hemoglobin Concent 34.2, Red Cell Distribution Width 14.7 H Microbiology Microbiology 11/07/18 Blood Culture - Preliminary, Resulted No Growth after 72 hours. All specime... 11/07/18 Blood Culture - Preliminary, Resulted No Growth after 72 hours. All specime... 11/08/18 Urine Culture - Final, Complete Citrobacter Braakii Enterococcus Faecalis Streptococcus Parasanguinis Lactobacillus Species LIBRADO BEAUCHAMP MD Nov 12, 2018 11:06
[2018-11-12] MEDS: LevoFLOXacin 500 MG TABLET PO SCH (12:22)
[2018-11-12] MEDS: CEFDINIR 300 MG CAP (OMNICEF) PO SCH ×2 (12:22→20:58)
[2018-11-12 14:00] VITALS: BP 85/51
[2018-11-12 18:00] VITALS: BP 128/68
[2018-11-12] MEDS: ENOXAPARIN 40 MG/0.4 ML SYRINGE (J1650) SC SCH (20:59)
[2018-11-12 22:00] VITALS: BP 107/62
[2018-11-13 02:00] VITALS: BP 122/58
[2018-11-13] MEDS: IPRATROPIUM 0.5MG/ALBUTEROL 2.5MG INH SOL UD 3ML (DUONEB)(J7620) NEB SCH ×4 (02:00→19:48)
[2018-11-13] MEDS: LevoFLOXacin 500 MG TABLET PO SCH (05:26)
[2018-11-13 06:00] VITALS: BP 134/89
[2018-11-13 06:27] LABS: HEMATOCRIT 39.1 % (36.0-47.0); HEMOGLOBIN 13.5 g/dl (12.0-15.5); MEAN CORPUSCULAR HEMOGLOBIN 32.3 pg (27.0-33.0); MEAN CORPUSCULAR HGB CONC 34.5 g/dl (32.0-36.5); MEAN CORPUSCULAR VOLUME 93.5 fl (80.0-96.0); PLATELET COUNT, AUTOMATED 254 10^3/uL (150-450); RED BLOOD COUNT 4.18 10^6/uL (4.00-5.40); WHITE BLOOD COUNT 18.5 10^3/uL (4.0-10.0)
[2018-11-13 06:50] LABS: BLOOD UREA NITROGEN 11 MG/DL (7-18); CALCIUM LEVEL 7.8 MG/DL (8.8-10.2); CARBON DIOXIDE LEVEL 33 MEQ/L (21-32); CHLORIDE LEVEL 96 MEQ/L (98-107); CREATININE FOR GFR 0.41 MG/DL (0.55-1.30); GLOMERULAR FILTRATION RATE > 60.0 (>45); GLUCOSE, FASTING 90 MG/DL (70-100); MAGNESIUM LEVEL 1.9 MG/DL (1.8-2.4); POTASSIUM SERUM 3.2 MEQ/L (3.5-5.1); SODIUM LEVEL 135 MEQ/L (136-145)
[2018-11-13] MEDS: HumaLOG INSULIN (NovoLOG) PER UNIT SC SCH ×4 (07:22→20:54)
[2018-11-13] MEDS: BUDESONIDE 0.5 MG/2 ML INHALATION SUSPENSION INH SCH ×2 (07:39→19:48)
[2018-11-13] MEDS: ATORVASTATIN 20 MG TAB PO SCH (08:30)
[2018-11-13] MEDS: MAGNESIUM CHLORIDE 64 MG TABCR (SLO MAG) PO SCH ×2 (08:30→20:54)
[2018-11-13] MEDS: THIAMINE 100 MG TAB PO SCH (08:31)
[2018-11-13] MEDS: FOLIC ACID 1 MG TAB PO SCH (08:31)
[2018-11-13] MEDS: CitaloPRAM (CeleXA) 10 MG TABLET PO SCH (08:31)
[2018-11-13] MEDS: HYDROCORTISONE 10 MG TAB PO SCH ×2 (08:31→20:55)
[2018-11-13] MEDS: CLOPIDOGREL 75 MG TAB PO SCH (08:31)
[2018-11-13] MEDS: ASPIRIN 81 MG ENTERIC TAB PO SCH (08:31)
[2018-11-13] MEDS: FLUDROCORTISONE ACETATE 0.1 MG TAB PO SCH (08:31)
[2018-11-13] MEDS: CEFDINIR 300 MG CAP (OMNICEF) PO SCH ×2 (08:31→20:55)
[2018-11-13] MEDS: MULTIVITAMINS/MINERALS THERAP 1 TAB PO SCH (08:31)
[2018-11-13] MEDS: POTASSIUM CHLORIDE 10 MEQ SR TABLET PO SCH (08:32)
[2018-11-13 10:00] VITALS: BP 99/63
--- NOTE | 2018-11-13 11:06 | IPNPDOC ---
Text Note Date of Service The patient was seen on 11/13/18. NOTE SUBJECTIVE: No acute overnight events reporetd. Patient has no new medical co mplaints. OBJECTIVE PHYSICAL EXAMINATION: VITAL SIGNS: Please see below. GENERAL: Flat affect, NAD, lying comfortably in bed, disheveled HEENT: NC/AT, MMM CARDIOVASCULAR: +S1S2, RRR RESPIRATORY: CTA B/L ABDOMINAL: +BS, soft, NT EXTREMITIES: No edema NEUROLOGICAL: no gross focal deficits appreciated PSYCHOLOGICAL: Flat affect, AAOx3 LABORATORY DATA, MICROBIOLOGY: Please see below. IMAGING STUDIES: Admission Chest x-ray:No acute cardiopulmonary process appreciated. Head CT:Age related atrophy and microvascular ischemic changes. Stable changes related to old infarction. No acute intracranial hemorrhage, infarction, or mass/mass effect. 11/12 x-ray:No acute cardiopulmonary process appreciated. ASSESSMENT AND PLAN: This is a 63-year-old female with adrenal insufficiency. PROBLEMS: 1. Adrenal insufficiency: Patient seen in the ER 3 times in the last several weeks her hypotension and orthostasis previously during a prolonged hospitalization were felt to be related to her adrenal insufficiency and she did improve with hydrocortisone. At this time she seems to be doing quite well on 40 of hydrocortisone in the morning and 20 in the evening. 2. Hypokalemia: Likely related to her adrenal insufficiency she is on fludro cortisone 0.1 mg daily we're providing her with supplementation, it is improved at this time. We'll keep her on 20 mEq by mouth daily and monitor with daily labs 3. Alcohol abuse: Cessation counseling provided she was not positive for ethanol at the time of her admission however several days prior to this he presented to the emergency room intoxicated brought in by police after soiling herself. She is being provided with folic acid thiamine I have started her on a multivitamin as well 4. Medical noncompliance: We did have a Lengthy conversations once again reiterating that she is not stable for disposition home to independent living where she was previously discharged twice from [facility] within the last several weeks and failed on both occasions secondary to noncompliance and alcohol intoxication. This is her second ICU admission within the last 3 weeks given the critical nature of her illness I do not feel she is safe to return to her previous living environment. PFS help greatly appreciated 5. CAD: She is on aspirin and statin and Plavix, not on a beta bia likely secondary to her chronic hypotension: 6. COPD: Stable she is at her baseline restrictive status continue with Pulmicort 7. Schizophrenia she has a flat affect: But thus far has been cooperative with care not currently receiving any medications for this 8. Type 2 diabetes: Home metformin is on hold, insulin sliding scale hypoglycemic protocol 9. Urinary incontinence: Her UA was not grossly abnormal however her culture is polymicrobial with 50,000 or less colony-forming units. Continue Levaquin and Cefdinir, for 5 day course and see if she has improvement in her symptoms. If she fails to have improvement in her incontinence symptoms would consider oxybutynin for overactive bladder. Her postvoid residuals are not elevated she is not experiencing overflow incontinence. Likely urge incontinence in that setting DVT prophylaxis: Lovenox DISPOSITION: Will require placement, PFS involved. VS,Fishbone, I+O VS, Fishbone, I+O Laboratory Tests 11/13/18 06:01 Red Blood Count 4.18, Mean Corpuscular Volume 93.5, Mean Corpuscular Hemoglobin 32.3, Mean Corpuscular Hemoglobin Concent 34.5, Red Cell Distribution Width 14.5, Calcium Level 7.8 L Vital Signs Date Time Temp Pulse Resp B/P (MAP) Pulse Ox O2 Delivery O2 Flow Rate FiO2 11/13/18 06:00 97.4 86 18 134/89 (104) 93 11/12/18 18:00 0.5 11/07/18 22:25 Room Air I&O- Last 24 Hours up to 6 AM 11/13/18 06:00 Intake Total 2130 ml Output Total 700 ml Balance 1430 ml RODDY FINLEY MD Nov 13, 2018 11:06
[2018-11-13 14:00] VITALS: BP 97/64
[2018-11-13 18:00] VITALS: BP 87/57
[2018-11-13] MEDS: ENOXAPARIN 40 MG/0.4 ML SYRINGE (J1650) SC SCH (20:54)
[2018-11-13 22:00] VITALS: BP 85/54
[2018-11-14] VITALS (7 sets, daily range): BP systolic 76–116; BP diastolic 54–81
[2018-11-14] MEDS: IPRATROPIUM 0.5MG/ALBUTEROL 2.5MG INH SOL UD 3ML (DUONEB)(J7620) NEB SCH ×4 (02:00→20:08)
[2018-11-14] MEDS: LevoFLOXacin 500 MG TABLET PO SCH (05:31)
[2018-11-14 05:59] LABS: HEMATOCRIT 37.2 % (36.0-47.0); HEMOGLOBIN 12.7 g/dl (12.0-15.5); MEAN CORPUSCULAR HEMOGLOBIN 31.3 pg (27.0-33.0); MEAN CORPUSCULAR HGB CONC 34.1 g/dl (32.0-36.5); MEAN CORPUSCULAR VOLUME 91.6 fl (80.0-96.0); PLATELET COUNT, AUTOMATED 254 10^3/uL (150-450); RED BLOOD COUNT 4.06 10^6/uL (4.00-5.40); WHITE BLOOD COUNT 18.1 10^3/uL (4.0-10.0)
[2018-11-14 06:18] LABS: BLOOD UREA NITROGEN 11 MG/DL (7-18); CALCIUM LEVEL 7.9 MG/DL (8.8-10.2); CARBON DIOXIDE LEVEL 32 MEQ/L (21-32); CHLORIDE LEVEL 97 MEQ/L (98-107); CREATININE FOR GFR 0.41 MG/DL (0.55-1.30); GLOMERULAR FILTRATION RATE > 60.0 (>45); GLUCOSE, FASTING 90 MG/DL (70-100); MAGNESIUM LEVEL 2.1 MG/DL (1.8-2.4); POTASSIUM SERUM 3.5 MEQ/L (3.5-5.1); SODIUM LEVEL 135 MEQ/L (136-145)
[2018-11-14] MEDS: HumaLOG INSULIN (NovoLOG) PER UNIT SC SCH ×4 (06:59→20:20)
[2018-11-14] MEDS: BUDESONIDE 0.5 MG/2 ML INHALATION SUSPENSION INH SCH ×2 (07:27→20:08)
[2018-11-14] MEDS: FOLIC ACID 1 MG TAB PO SCH (08:09)
[2018-11-14] MEDS: ATORVASTATIN 20 MG TAB PO SCH (08:09)
[2018-11-14] MEDS: CEFDINIR 300 MG CAP (OMNICEF) PO SCH ×2 (08:09→20:20)
[2018-11-14] MEDS: CitaloPRAM (CeleXA) 10 MG TABLET PO SCH (08:09)
[2018-11-14] MEDS: FLUDROCORTISONE ACETATE 0.1 MG TAB PO SCH (08:09)
[2018-11-14] MEDS: HYDROCORTISONE 10 MG TAB PO SCH ×2 (08:09→20:20)
[2018-11-14] MEDS: MULTIVITAMINS/MINERALS THERAP 1 TAB PO SCH (08:09)
[2018-11-14] MEDS: CLOPIDOGREL 75 MG TAB PO SCH (08:09)
[2018-11-14] MEDS: POTASSIUM CHLORIDE 10 MEQ SR TABLET PO SCH (08:10)
[2018-11-14] MEDS: MAGNESIUM CHLORIDE 64 MG TABCR (SLO MAG) PO SCH ×2 (08:10→20:20)
[2018-11-14] MEDS: ASPIRIN 81 MG ENTERIC TAB PO SCH (08:10)
[2018-11-14] MEDS: THIAMINE 100 MG TAB PO SCH (08:10)
[2018-11-14 11:07] LABS: CHOLESTEROL LEVEL 135 MG/DL (<200); HDL CHOLESTEROL 75 MG/DL (>40); LDL CHOLESTEROL 46 MG/DL (<100); NON-HDL-C 60 MG/DL; TRIGLYCERIDES LEVEL 70 MG/DL (<150)
[2018-11-14] MEDS: ENOXAPARIN 40 MG/0.4 ML SYRINGE (J1650) SC SCH (20:19)
--- NOTE | 2018-11-14 23:35 | IPNPDOC ---
Text Note Date of Service The patient was seen on 11/14/18. NOTE SUBJECTIVE: No acute overnight events reported. Patient has no new medical com plaints however does say that she continues to feel sick and unwell. She does not want to get out of bed. Blood pressures overnight has again been soft. OBJECTIVE PHYSICAL EXAMINATION: VITAL SIGNS: Please see below. GENERAL: Flat affect, NAD, lying comfortably in bed, disheveled HEENT: NC/AT, MMM CARDIOVASCULAR: +S1S2, RRR RESPIRATORY: CTA B/L ABDOMINAL: +BS, soft, NT EXTREMITIES: No edema NEUROLOGICAL: no gross focal deficits appreciated PSYCHOLOGICAL: Flat affect, AAOx3 LABORATORY DATA, MICROBIOLOGY: Please see below. IMAGING STUDIES: Admission Chest x-ray:No acute cardiopulmonary process appreciated. Head CT:Age related atrophy and microvascular ischemic changes. Stable changes related to old infarction. No acute intracranial hemorrhage, infarction, or mass/mass effect. 11/12 x-ray:No acute cardiopulmonary process appreciated. ASSESSMENT AND PLAN: This is a 63-year-old female who is an alcoholic, noncompliant, chronic hypotension, possible adrenal insufficiency, COPD, Schizophrenia, Urinary incontinence, h/o small cell lung cancer Chronic Hypotension possible adrenal insufficiency. Noted to be intermittently hypotensive from 2017 Am cortisol level in 2017 was 5.2 and Am cortisol level on 10/29/2018 was 118 this was while patient on hydrocortisone. However patient have never been hyperkalemic which i would expect with adrenal insufficiency. will reduce her hydrocortisone total dose. will continue fludrocortisone Hypokalemia: continue supplementation Severe Protein Calorie malnutrition: due to alcohol abuse Alcohol abuse: Cessation counseling provided she was not positive for ethanol at the time of her admission however several days prior to this he presented to the emergency room intoxicated brought in by police after soiling herself. She is being provided with folic acid thiamine I have started her on a multivitamin as well H/o Small cell lung cancer Medical noncompliance: We did have a Lengthy conversations once again reiterating that she is not stable for disposition home to independent living where she was previously discharged twice from [facility] within the last several weeks and failed on both occasions secondary to noncompliance and alcohol intoxication. This is her second ICU admission within the last 3 weeks given the critical nature of her illness I do not feel she is safe to return to her previous living environment. PFS help greatly appreciated CAD: She is on aspirin and statin and Plavix, not on a beta bia likely secondary to her chronic hypotension: COPD: Stable she is at her baseline restrictive status continue with Pulmicort Schizophrenia she has a flat affect: But thus far has been cooperative with care not currently receiving any medications for this Type 2 diabetes: Home metformin is on hold, insulin sliding scale hypoglycemic protocol. her sugars have been normal or low in hospital i do not think she will need metformin on discharge. Urinary incontinence: Her UA was not grossly abnormal however her culture is polymicrobial with 50,000 or less colony-forming units. Continue Levaquin and Cefdinir, for 5 day course and see if she has improvement in her symptoms. If she fails to have improvement in her incontinence symptoms would consider oxybutynin for overactive bladder. Her postvoid residuals are not elevated she is not experiencing overflow incontinence. Likely urge incontinence in that setting DVT prophylaxis: Lovenox VS,Fishbone, I+O VS, Fishbone, I+O Laboratory Tests 11/14/18 05:40 Red Blood Count 4.06, Mean Corpuscular Volume 91.6, Mean Corpuscular Hemoglobin 31.3, Mean Corpuscular Hemoglobin Concent 34.1, Red Cell Distribution Width 14.6 H, Calcium Level 7.9 L Vital Signs Date Time Temp Pulse Resp B/P (MAP) Pulse Ox O2 Delivery O2 Flow Rate FiO2 11/14/18 19:00 99.0 97 14 97/54 (68) 93 11/12/18 18:00 0.5 I&O- Last 24 Hours up to 6 AM 11/14/18 06:00 Intake Total 2260 ml Balance 2260 ml JESUS MUNGUIA MD Nov 14, 2018 23:15
[2018-11-15] MEDS: IPRATROPIUM 0.5MG/ALBUTEROL 2.5MG INH SOL UD 3ML (DUONEB)(J7620) NEB SCH ×4 (01:42→23:17)
[2018-11-15 02:00] VITALS: BP 110/60
[2018-11-15 06:00] VITALS: BP 110/80
[2018-11-15] MEDS: LevoFLOXacin 500 MG TABLET PO SCH (06:14)
[2018-11-15 06:40] LABS: HEMATOCRIT 37.8 % (36.0-47.0); HEMOGLOBIN 13.1 g/dl (12.0-15.5); MEAN CORPUSCULAR HEMOGLOBIN 33.1 pg (27.0-33.0); MEAN CORPUSCULAR HGB CONC 34.7 g/dl (32.0-36.5); MEAN CORPUSCULAR VOLUME 95.5 fl (80.0-96.0); PLATELET COUNT, AUTOMATED 249 10^3/uL (150-450); RED BLOOD COUNT 3.96 10^6/uL (4.00-5.40); WHITE BLOOD COUNT 18.1 10^3/uL (4.0-10.0)
[2018-11-15 07:23] LABS: BLOOD UREA NITROGEN 12 MG/DL (7-18); CALCIUM LEVEL 7.4 MG/DL (8.8-10.2); CARBON DIOXIDE LEVEL 31 MEQ/L (21-32); CHLORIDE LEVEL 97 MEQ/L (98-107); CREATININE FOR GFR 0.35 MG/DL (0.55-1.30); GLOMERULAR FILTRATION RATE > 60.0 (>45); GLUCOSE, FASTING 80 MG/DL (70-100); POTASSIUM SERUM 2.9 MEQ/L (3.5-5.1); SODIUM LEVEL 135 MEQ/L (136-145)
[2018-11-15] MEDS: BUDESONIDE 0.5 MG/2 ML INHALATION SUSPENSION INH SCH ×2 (07:50→23:17)
[2018-11-15] MEDS ORDERED: HYDROCORTISONE 10 MG TAB PO SCH (09:00)
[2018-11-15] MEDS ORDERED: POTASSIUM CHLORIDE 10 MEQ SR TABLET PO SCH (09:00)
[2018-11-15 10:00] VITALS: BP 106/65
[2018-11-15] MEDS: HYDROCORTISONE 10 MG TAB PO SCH ×2 (10:11→21:38)
[2018-11-15] MEDS: MAGNESIUM CHLORIDE 64 MG TABCR (SLO MAG) PO SCH ×2 (10:11→21:38)
[2018-11-15] MEDS: CLOPIDOGREL 75 MG TAB PO SCH (10:11)
[2018-11-15] MEDS: MULTIVITAMINS/MINERALS THERAP 1 TAB PO SCH (10:11)
[2018-11-15] MEDS: ATORVASTATIN 20 MG TAB PO SCH (10:11)
[2018-11-15] MEDS: CEFDINIR 300 MG CAP (OMNICEF) PO SCH ×2 (10:12→21:38)
[2018-11-15] MEDS: THIAMINE 100 MG TAB PO SCH (10:12)
[2018-11-15] MEDS: FLUDROCORTISONE ACETATE 0.1 MG TAB PO SCH (10:12)
[2018-11-15] MEDS: ASPIRIN 81 MG ENTERIC TAB PO SCH (10:12)
[2018-11-15] MEDS: FOLIC ACID 1 MG TAB PO SCH (10:12)
[2018-11-15] MEDS: CitaloPRAM (CeleXA) 10 MG TABLET PO SCH (10:12)
[2018-11-15 14:00] VITALS: BP 112/80
--- NOTE | 2018-11-15 17:28 | IPNPDOC ---
Text Note Date of Service The patient was seen on 11/15/18. NOTE SUBJECTIVE: Complains of watery diarrhea overnight. Says often has diarrhea at home. He stomach still feels unwell and she continues to be nauseous. She does not want to get out of bed. Blood pressures better now. OBJECTIVE PHYSICAL EXAMINATION: VITAL SIGNS: Please see below. GENERAL: Flat affect, NAD, lying comfortably in bed, disheveled HEENT: NC/AT, MMM CARDIOVASCULAR: +S1S2, RRR RESPIRATORY: CTA B/L ABDOMINAL: +BS, soft, NT EXTREMITIES: No edema NEUROLOGICAL: no gross focal deficits appreciated PSYCHOLOGICAL: Flat affect, AAOx3 LABORATORY DATA, MICROBIOLOGY: Please see below. IMAGING STUDIES: Admission Chest x-ray:No acute cardiopulmonary process appreciated. Head CT:Age related atrophy and microvascular ischemic changes. Stable changes related to old infarction. No acute intracranial hemorrhage, infarction, or mass/mass effect. 11/12 x-ray:No acute cardiopulmonary process appreciated. ASSESSMENT AND PLAN: This is a 63-year-old female who is an alcoholic, noncompliant, chronic hypotension, possible adrenal insufficiency, COPD, Schizophrenia, Urinary incontinence, h/o small cell lung cancer Chronic Hypotension possible adrenal insufficiency. Noted to be intermittently hypotensive from 2017 Am cortisol level in 2017 was 5.2 and Am cortisol level on 10/29/2018 was 118 this was while patient on hydrocortisone. However patient have never been hyperkalemic which i would expect with adrenal insufficiency. will reduce her hydrocortisone total dose. will continue fludrocortisone Hypokalemia: continue supplementation Severe Protein Calorie malnutrition: due to alcohol abuse Alcohol abuse: Cessation counseling provided she was not positive for ethanol at the time of her admission however several days prior to this he presented to the emergency room intoxicated brought in by police after soiling herself. She is being provided with folic acid thiamine I have started her on a multivitamin as well H/o Small cell lung cancer Medical noncompliance: We did have a Lengthy conversations once again reiterating that she is not stable for disposition home to independent living where she was previously discharged twice from [facility] within the last several weeks and failed on both occasions secondary to noncompliance and alcohol intoxication. This is her second ICU admission within the last 3 weeks given the critical nature of her illness I do not feel she is safe to return to her previous living environment. PFS help greatly appreciated CAD: She is on aspirin and statin and Plavix, not on a beta bia likely secondary to her chronic hypotension: COPD: Stable she is at her baseline restrictive status continue with Pulmicort Schizophrenia she has a flat affect: But thus far has been cooperative with care not currently receiving any medications for this Type 2 diabetes: Home metformin is on hold, insulin sliding scale hypoglycemic protocol. her sugars have been normal or low in hospital i do not think she will need metformin on discharge. Urinary incontinence: Her UA was not grossly abnormal however her culture is polymicrobial with 50,000 or less colony-forming units. Continue Levaquin and Cefdinir, for 5 day course and see if she has improvement in her symptoms. If she fails to have improvement in her incontinence symptoms would consider oxybutynin for overactive bladder. Her postvoid residuals are not elevated she is not experiencing overflow incontinence. Likely urge incontinence in that set ting DVT prophylaxis: Lovenox VS,Fishbone, I+O VS, Fishbone, I+O Laboratory Tests 11/15/18 06:10 Red Blood Count 3.96 L, Mean Corpuscular Volume 95.5, Mean Corpuscular Hemoglobin 33.1 H, Mean Corpuscular Hemoglobin Concent 34.7, Red Cell Distribution Width 14.7 H, Calcium Level 7.4 L Vital Signs Date Time Temp Pulse Resp B/P (MAP) Pulse Ox O2 Delivery O2 Flow Rate FiO2 11/15/18 14:00 98.1 92 19 112/80 (91) 100 11/12/18 18:00 0.5 I&O- Last 24 Hours up to 6 AM 11/15/18 06:00 Intake Total 2170 ml Balance 2170 ml JESUS MUNGUIA MD Nov 15, 2018 17:28
[2018-11-15 18:00] VITALS: BP 107/63
[2018-11-15 19:16] LABS: BLOOD UREA NITROGEN 9 MG/DL (7-18); CALCIUM LEVEL 7.9 MG/DL (8.8-10.2); CARBON DIOXIDE LEVEL 32 MEQ/L (21-32); CHLORIDE LEVEL 96 MEQ/L (98-107); CREATININE FOR GFR 0.44 MG/DL (0.55-1.30); GLOMERULAR FILTRATION RATE > 60.0 (>45); GLUCOSE, FASTING 165 MG/DL (70-100); POTASSIUM SERUM 3.2 MEQ/L (3.5-5.1); SODIUM LEVEL 134 MEQ/L (136-145)
[2018-11-15] MEDS: ENOXAPARIN 40 MG/0.4 ML SYRINGE (J1650) SC SCH (21:37)
[2018-11-15] MEDS: POTASSIUM CHLORIDE 10 MEQ SR TABLET PO SCH (21:38)
[2018-11-15 22:00] VITALS: BP 99/58
[2018-11-16] MEDS: IPRATROPIUM 0.5MG/ALBUTEROL 2.5MG INH SOL UD 3ML (DUONEB)(J7620) NEB SCH ×2 (01:35→07:31)
[2018-11-16 02:00] VITALS: BP 135/76
[2018-11-16 05:56] LABS: HEMATOCRIT 37.9 % (36.0-47.0); HEMOGLOBIN 12.8 g/dl (12.0-15.5); MEAN CORPUSCULAR HEMOGLOBIN 31.7 pg (27.0-33.0); MEAN CORPUSCULAR HGB CONC 33.8 g/dl (32.0-36.5); MEAN CORPUSCULAR VOLUME 93.8 fl (80.0-96.0); PLATELET COUNT, AUTOMATED 260 10^3/uL (150-450); RED BLOOD COUNT 4.04 10^6/uL (4.00-5.40); WHITE BLOOD COUNT 16.5 10^3/uL (4.0-10.0)
[2018-11-16 06:00] VITALS: BP 139/81
[2018-11-16] MEDS: LevoFLOXacin 500 MG TABLET PO SCH (06:15)
[2018-11-16 06:21] LABS: BLOOD UREA NITROGEN 6 MG/DL (7-18); CALCIUM LEVEL 7.9 MG/DL (8.8-10.2); CARBON DIOXIDE LEVEL 31 MEQ/L (21-32); CHLORIDE LEVEL 98 MEQ/L (98-107); CREATININE FOR GFR 0.39 MG/DL (0.55-1.30); GLOMERULAR FILTRATION RATE > 60.0 (>45); GLUCOSE, FASTING 109 MG/DL (70-100); MAGNESIUM LEVEL 1.8 MG/DL (1.8-2.4); POTASSIUM SERUM 3.2 MEQ/L (3.5-5.1); SODIUM LEVEL 134 MEQ/L (136-145)
[2018-11-16] MEDS: BUDESONIDE 0.5 MG/2 ML INHALATION SUSPENSION INH SCH (07:31)
[2018-11-16] MEDS: CitaloPRAM (CeleXA) 10 MG TABLET PO SCH (08:52)
[2018-11-16] MEDS: MAGNESIUM CHLORIDE 64 MG TABCR (SLO MAG) PO SCH (08:52)
[2018-11-16] MEDS: FLUDROCORTISONE ACETATE 0.1 MG TAB PO SCH (08:52)
[2018-11-16] MEDS: CLOPIDOGREL 75 MG TAB PO SCH (08:52)
[2018-11-16] MEDS: KCL 10MEQ/100ML SWI (KRUN) 10 MEQ in APPROPRIATE DILUENT 1 EA IV SCH ×2 (08:52→11:19)
[2018-11-16] MEDS: ATORVASTATIN 20 MG TAB PO SCH (08:52)
[2018-11-16] MEDS: THIAMINE 100 MG TAB PO SCH (08:53)
[2018-11-16] MEDS: ASPIRIN 81 MG ENTERIC TAB PO SCH (08:53)
[2018-11-16] MEDS: POTASSIUM CHLORIDE 10 MEQ SR TABLET PO SCH (08:53)
[2018-11-16] MEDS: MULTIVITAMINS/MINERALS THERAP 1 TAB PO SCH (08:53)
[2018-11-16] MEDS: HYDROCORTISONE 10 MG TAB PO SCH (08:53)
[2018-11-16] MEDS: FOLIC ACID 1 MG TAB PO SCH (08:53)
[2018-11-16] MEDS: CEFDINIR 300 MG CAP (OMNICEF) PO SCH (08:57)
[2018-11-16] MEDS ORDERED: CORT10TA PO (10:38)
[2018-11-16] MEDS ORDERED: ATOR1TAB21 PO (10:38)
--- NOTE | 2018-11-16 22:26 | DS.PDOC ---
Discharge Summary General Date of Admission November 07, 2018 at 19:43 Date of Discharge 11/16/18 Discharge Summary PROCEDURES PERFORMED DURING STAY: [None]. DISCHARGE DIAGNOSES: Adrenal Crisis due to noncompliance with medications Adrenal insufficiency primary vs secondary will need further work up Alcohol abuse and medication noncompliance. recurrent falls Neuropathy diabetic and alcoholic Protein-calorie malnutrition. Hypokalemia H/O small cell lung cancer CAD COPD Schizophrenia Smoker Diabetes not needing any meds now urge incontinence. COMPLICATIONS/CHIEF COMPLAINT: Adrenal Insufficiency. HISTORY OF PRESENT ILLNESS: See history and physical HOSPITAL COURSE: This is a 63-year-old female who is an alcoholic, noncompliant, chronic hypotension, possible adrenal insufficiency, COPD, Schizophrenia, Urinary incontinence, h/o small cell lung cancer, orthostatic hypotension, medical nonadherence, type 2 diabetes mellitus, Coronary artery disease Peripheral arterial diseaseceliac axis stenosis, presenting to the hospital on account of weakness and dizziness. Blood pressure on presentation was 68/51 with a map of 57. Patient was bolused IV fluids and on reassessment, blood pressure was improved at 94/70 with a map of 78. On evaluation, patient states she fell at home about a week ago due to weakness. She denied however any other symptoms and was unable to provide any more history. Of note, patient was discharged from this facility 6 days prior to this admission for same presentation and symptoms. After stabilization, at time of discharge, it was discovered that patient had not been taking her medications. This admission also it is questionable if patient has been adherent with medications prescribed during last admission. Adrenal crisis Has h/o Chronic Hypotension possible adrenal insufficiency and pateint was not taking her medications after discharge from hospital few days prior. Noted to be intermittently hypotensive from 2017 Am cortisol level in 2017 was 5.2 and Am cortisol level on 10/29/2018 was 118 this was while patient on hydrocortisone. However patient have never been hyperkalemic which i would expect with primary adrenal insufficiency. Could be seconday. We do not have an ACTH level. will reduce her hydrocortisone total dose. will continue fludrocortisone Hypokalemia: replaced. Severe Protein Calorie malnutrition: due to alcohol abuse Alcohol abuse: Cessation counseling provided she was not positive for ethanol at the time of her admission however several days prior to this he presented to the emergency room intoxicated brought in by police after soiling herself. She is being provided with folic acid thiamine I have started her on a multivitamin as well H/o Small cell lung cancer last PET scan in 2018 Medical noncompliance: We did have a Lengthy conversations once again reiterating that she is not stable for disposition home to independent living where she was previously discharged twice from [facility] within the last several weeks and failed on both occasions secondary to noncompliance and alcohol intoxication. This is her second ICU admission within the last 3 weeks given the critical nature of her illness I do not feel she is safe to return to her previous living environment. PFS help greatly appreciated CAD: She is on aspirin and statin and Plavix, not on a beta bia likely secondary to her chronic hypotension: COPD: Stable she is at her baseline restrictive status continue with Pulmicort Schizophrenia she has a flat affect: But thus far has been cooperative with care not currently receiving any medications for this Type 2 diabetes: Home metformin is on hold, insulin sliding scale hypoglycemic protocol. her sugars have been normal or low in hospital i do not think she will need metformin on discharge. Urinary incontinence: Possibly urge incontinence due to infection. Her UA was not grossly abnormal however her culture is polymicrobial with 50,000 or less colony-forming units. finished 5 days of antibiotics. Her postvoid residuals are not elevated she is not experiencing overflow incontinence. DISCHARGE MEDICATIONS: Please see below. ALLERGIES: Please see below. PHYSICAL EXAMINATION ON DISCHARGE: VITAL SIGNS: Please see below. GENERAL: Flat affect, NAD, lying comfortably in bed, disheveled HEENT: NC/AT, Moist mucus membranes, anicteric eyes. CARDIOVASCULAR: +S1S2, RRR RESPIRATORY: CTA B/L ABDOMINAL: +BS, soft, NT EXTREMITIES: No edema NEUROLOGICAL: no gross focal deficits appreciated PSYCHOLOGICAL: Flat affect, AAOx3 LABORATORY DATA: Please see below. ACTIVITY: [As tolerated]. DIET: As tolerated DISPOSITION: 01 Home, Self-Care. DISCHARGE INSTRUCTIONS: PMD in 1 week Needs referral to Endocrine for further work up of adrenal insufficiency DISCHARGE CONDITION: [Stable]. TIME SPENT ON DISCHARGE: 35 minutes. Vital Signs/I&Os Vital Signs Date Time Temp Pulse Resp B/P (MAP) Pulse Ox O2 Delivery O2 Flow Rate FiO2 11/16/18 06:00 97.0 86 18 139/81 (100) 96 11/12/18 18:00 0.5 I&O- Last 24 Hours up to 6 AM 11/16/18 05:59 Intake Total 350 ml Output Total 0 ml Balance 350 ml Laboratory Data Labs 24H Laboratory Tests 2 11/15/18 16:52: Bedside Glucose (Misc Panel) 240H 11/15/18 18:01: Anion Gap 6L, Glomerular Filtration Rate > 60.0, Blood Urea Nitrogen 9, Creatinine 0.44L, Sodium Level 134L, Potassium Level 3.2L, Chloride Level 96L, Carbon Dioxide Level 32, Calcium Level 7.9L 11/15/18 20:24: Bedside Glucose (Misc Panel) 124H 11/16/18 05:34: Anion Gap 5L, Glomerular Filtration Rate > 60.0, Blood Urea Nitrogen 6L, Creatinine 0.39L, Sodium Level 134L, Potassium Level 3.2L, Chloride Level 98, Carbon Dioxide Level 31, Calcium Level 7.9L, Nucleated Red Blood Cells % (auto) 0.0, Magnesium Level 1.8 CBC/BMP Laboratory Tests 11/15/18 18:01 Calcium Level 7.9 L 11/16/18 05:34 Calcium Level 7.9 L, Red Blood Count 4.04, Mean Corpuscular Volume 93.8, Mean Corpuscular Hemoglobin 31.7, Mean Corpuscular Hemoglobin Concent 33.8, Red Cell Distribution Width 14.6 H FSBS Laboratory Tests Test 11/15/18 16:52 11/15/18 20:24 Range/Units Bedside Glucose (Misc Panel) 240 124 80-115 MG/DL Microbiology Microbiology 11/07/18 Blood Culture - Final, Complete NO GROWTH AFTER 5 DAYS 11/07/18 Blood Culture - Final, Complete NO GROWTH AFTER 5 DAYS 11/08/18 Urine Culture - Final, Complete Citrobacter Braakii Enterococcus Faecalis Streptococcus Parasanguinis Lactobacillus Species Discharge Medications Scheduled Aspirin (Aspirin EC) 81 Mg Tablet.dr, 81 MG PO DAILY, (Reported) Atorvastatin Calcium (Atorvastatin Calcium) 20 Mg Tablet, 20 MG PO DAILY Budesonide (Pulmicort Flexhaler) 180 Mcg Aer.pow.ba, 1 PUFF INH BID, (Reported) Citalopram Hydrobromide (Celexa) 10 Mg Tablet, 10 MG PO DAILY, (Reported) Clopidogrel Bisulfate (Plavix) 75 Mg Tablet, 75 MG PO DAILY, (Reported) Fludrocortisone Acetate (Fludrocortisone Acetate) 0.1 Mg Tablet, 0.1 MG PO DAILY, (Reported) Folic Acid (Folic Acid) 1 Mg Tablet, 1 MG PO DAILY, (Reported) Hydrocortisone (Cortef) 10 Mg Tablet, 10 MG PO ASDIRECTED 1tab at 8am and 1 tab at 4pm Multivitamin (Multivitamins) 1 Each Tablet, 1 TAB PO DAILY, (Reported) Thiamine HCl (Thiamine HCl) 100 Mg Tablet, 100 MG PO DAILY, (Reported) Scheduled PRN Albuterol Sulfate (Ventolin Hfa) 18 Gm Hfa.aer.ad, 2 PUFF INH Q6H PRN for SHORTNESS OF BREATH, (Reported) Allergies Coded Allergies: No Known Allergies (Unverified , 07/07/18) JESUS MUNGUIA MD Nov 16, 2018 15:15
== END 2018-11-16 14:15 | disposition home or self-care (01) | DRG 424 ==
LOC: M ED 16:03 → M ED INP 19:43 → M ICU 22:49 → M MSPAV 11-09 12:46
PROVIDERS: ADMIT Internal Medicine; ATTEND Internal Medicine Nephrology
DX: E27.2 Addisonian crisis (principal); E43 Unspecified severe protein-calorie malnutrition; I95.89 Other hypotension; E11.40 Type 2 diabetes mellitus with diabetic neuropathy, unspecified; E11.51 Type 2 diabetes mellitus with diabetic peripheral angiopathy without gangrene; G31.2 Degeneration of nervous system due to alcohol; F20.9 Schizophrenia, unspecified; R62.7 Adult failure to thrive; E87.1 Hypo-osmolality and hyponatremia; E87.6 Hypokalemia; N39.41 Urge incontinence; I25.10 Atherosclerotic heart disease of native coronary artery without angina pectoris; G43.909 Migraine, unspecified, not intractable, without status migrainosus; F32.9 Major depressive disorder, single episode, unspecified; F17.200 Nicotine dependence, unspecified, uncomplicated; F10.20 Alcohol dependence, uncomplicated; Z91.14 Patient's other noncompliance with medication regimen; Z86.73 Personal history of transient ischemic attack (TIA), and cerebral infarction without residual deficits; Z79.84 Long term (current) use of oral hypoglycemic drugs; Z79.02 Long term (current) use of antithrombotics/antiplatelets; Z79.82 Long term (current) use of aspirin; Z79.899 Other long term (current) drug therapy; Z85.118 Personal history of other malignant neoplasm of bronchus and lung; Z68.1 Body mass index [BMI] 19.9 or less, adult

== ENCOUNTER → 2019-01-12 | Outpatient (CLI) | payer MEDICAID ==
[~2019-01-12] MED LIST changes: +HYDR-4513 PO; +ISOVUE-370 76% 100ML VIAL (Q9967) As Ordered ONE; +MULT-40 PO; +PLAV1TAB2 PO; +THIA100T7 PO
--- NOTE | 2019-01-12 09:54 | REP ---
CT of the chest without IV contrast: Comparison is 07/17/2018. Other more remote prior chest CTs are not available on PACS at this time for reasons unknown to this examiner. There is a large spiculated right upper lobe lesion extending to the right hilus. This is not significantly changed in size. On the prior study there were bilateral lower lobe opacities. These have resolved. On the prior study there was an opacity in the right middle lobe. This has resolved. There are no new opacities on the study today. There is no mediastinal or axillary lymph node enlargement. In the absence of IV contrast the study is insensitive for hilar lymph node enlargement. There is a central venous catheter entering from left with the tip in the superior vena cava in satisfactory position. This is unchanged. The unenhanced thoracic aorta is unremarkable. Cardiac size is normal. The visualized unenhanced upper abdomen is unremarkable. There is no adrenal mass. There are too left renal upper pole cysts. There is a small calcification within one of these two cysts. These findings are unchanged. Impression: No change in size of the right upper lobe spiculated lesion extending to the right hilus. The previous bilateral lower lobe opacities in the previous right middle lobe opacities have resolved. There are no new opacities. No pleural effusions. No adenopathy. Stable left renal upper pole cysts. Electronically Signed by Logan Bishop MD 01/12/2019 09:46 A
== END ==
LOC: M RAD 07:53
PROVIDERS: ATTEND Internal Medicine Medical Oncology
DX: C34.11 Malignant neoplasm of upper lobe, right bronchus or lung (principal); N28.1 Cyst of kidney, acquired

== ENCOUNTER 2019-03-19 06:34 | Inpatient (IN) | payer OTHER ==
[2019-03-19] VITALS (21 sets, daily range): BP systolic 54–139; BP diastolic 32–96
[~2019-03-19] VITALS: Ht 154.9 cm; Wt 43.7 kg
[~2019-03-19 06:34] MED LIST changes: -ISOVUE-370 76% 100ML VIAL (Q9967) As Ordered ONE; +METF-791 PO; -METF500T4 PO
[2019-03-19] MEDS ORDERED: METF-791 PO (06:55)
[2019-03-19] MEDS ORDERED: NS 500 ML IV ONE (07:00)
[2019-03-19] MEDS ORDERED: NS 1,290 ML in IV 1 EA IV ONE (07:30)
--- NOTE | 2019-03-19 07:54 | REPVR ---
PROCEDURE INFORMATION: Exam: CT Head Without Contrast Exam date and time: 03/19/2019 7:00 AM Clinical history: 63 years old, female; Injury or trauma; Fall; Initial encounter; Blunt trauma (contusions or hematomas) TECHNIQUE: Imaging protocol: Computed tomography of the head without contrast. Radiation optimization: All CT scans at this facility use at least one of these dose optimization techniques: automated exposure control; mA and/or kV adjustment per patient size (includes targeted exams where dose is matched to clinical indication); or iterative reconstruction. COMPARISON: CT Head without contrast 11/07/2018 5:40 PM FINDINGS: Brain: See Ventricles Finding. Ventricles: There is age related cerebral atrophy with secondary ventricular dilatation. There is extensive periventricular and subcortical white matter hypoattenuation with no obvious mass effect. Old infarcts/encephalomalacia is seen in the right posterior parietal and right frontal lobes. Old left frontal periventricular white matter ischemic changes seen, unchanged. Bones/joints: Unremarkable. No acute fracture. Sinuses: Visualized sinuses are unremarkable. No fluid levels. Mastoid air cells: Visualized mastoid air cells are well aerated. Soft tissues: Unremarkable. IMPRESSION: 1. No CT evidence of acute intracranial hemorrhage, mass effect or midline shift. 2. Age related cerebral atrophy with extensive chronic microangiopathic changes in addition to small areas of encephalomalacia in the right frontal and posterior parietal lobes, grossly unchanged. 3. Overall exam is grossly unchanged however given the extent of the chronic ischemic changes subtle underlying acute ischemic process cannot be completely excluded. Correlation with patient's abdomen clinical history is needed. If indicated MRI with diffusion-weighted images may be obtained for further evaluation. Electronically signed by: Pablo Dewey On 03/19/2019 07:54:44 AM
[2019-03-19 07:58] LABS: VENOUS HCO3 27.9 MEQ/L (23.0-27.0); VENOUS O2 SATURATION 66.9 % (60.0-80.0); VENOUS PARTIAL PRESSURE CO2 56.8 mmHg (38.0-50.0); VENOUS PARTIAL PRESSURE O2 34.6 mmHg (30.0-50.0); VENOUS PH 7.309 UNITS (7.330-7.430); VENOUS STANDARD HCO3 23.6 MEQ/L; VENOUS TOTAL CO2 29.6 MEQ/L (24.0-28.0)
[2019-03-19] MEDS ORDERED: cefTRIAXone SOD 2 GM in D5W MINI-BAG PLUS 50 ML IV ONE (08:00)
[2019-03-19 08:05] LABS: BASO # 0.1 10^3/uL (0.0-0.2); BASO % 0.6 % (0.0-1.0); EOS # 0.1 10^3/uL (0.0-0.5); EOS % 0.5 % (0.0-3.0); HEMATOCRIT 49.4 % (36.0-47.0); HEMOGLOBIN 17.3 g/dl (12.0-15.5); LYMPH # 2.5 10^3/uL (1.5-5.0); LYMPH % 14.5 % (24.0-44.0); MEAN CORPUSCULAR HEMOGLOBIN 32.3 pg (27.0-33.0); MEAN CORPUSCULAR VOLUME 92.3 fl (80.0-96.0); MONO # 1.2 10^3/uL (0.0-0.8); NEUTROPHILS # 13.1 10^3/uL (1.5-8.5); NEUTROPHILS % 76.9 % (36.0-66.0); PLATELET COUNT, AUTOMATED 234 10^3/uL (150-450); RED BLOOD COUNT 5.35 10^6/uL (4.00-5.40)
[2019-03-19 08:14] LABS: INR 1.06; PROTHROMBIN TIME 13.5 SECONDS (11.8-14.0)
[2019-03-19] MEDS ORDERED: HYDROCORTISONE 100 MG/2 ML VIAL (J1720) IV ONE (08:15)
[2019-03-19] MEDS ORDERED: THIAMINE HCL 200 MG/2 ML VIAL (J3411) IM ONE (08:15)
[2019-03-19 08:34] LABS: ALBUMIN 2.9 GM/DL (3.2-5.2); ALT/SGPT 18 U/L (12-78); BILIRUBIN,DIRECT 0.2 MG/DL (0.0-0.2); BILIRUBIN,TOTAL 0.7 MG/DL (0.2-1.0); BLOOD UREA NITROGEN 2 MG/DL (7-18); CALCIUM LEVEL 8.4 MG/DL (8.8-10.2); CARBON DIOXIDE LEVEL 29 MEQ/L (21-32); CHLORIDE LEVEL 94 MEQ/L (98-107); CK-MB VALUE MASS 5.3 NG/ML (<3.6); CPK CREATINE PHOSPHOKINASE 352 U/L (26-192); CREATININE FOR GFR 0.56 MG/DL (0.55-1.30); ETHYL ALCOHOL (ETHANOL) < 0.003 % (0.000-0.010); GLOMERULAR FILTRATION RATE > 60.0 (>45); GLUCOSE, FASTING 94 MG/DL (70-100); LIPASE 66 U/L (73-393); MAGNESIUM LEVEL 1.6 MG/DL (1.8-2.4); MB/CK RELATIVE INDEX 1.51 (< OR =4); SODIUM LEVEL 131 MEQ/L (136-145); TOTAL PROTEIN 6.5 GM/DL (6.4-8.2); TROPONIN I < 0.02 NG/ML (< 0.10)
[2019-03-19] MEDS ORDERED: MAG SULF 1GM/100ML (MAG RUN) 1 GM in IV 1 EA IV ONE (08:45)
[2019-03-19] MEDS ORDERED: ISOVUE-370 76% 100ML VIAL (Q9967) As Ordered ONE (08:55)
[2019-03-19] MEDS ORDERED: NOREPINEPHRINE BITARTRATE 8 MG in D5W 492 ML IV SCH ×2 (09:00→21:00)
[2019-03-19] MEDS: THIAMINE 100 MG TAB PO SCH ×2 (09:00→20:49)
[2019-03-19] MEDS ORDERED: HYDROCORTISONE 100 MG/2 ML VIAL (J1720) IV SCH (09:00)
--- NOTE | 2019-03-19 09:00 | REP ---
Portable chest, 08:22 a.m., single AP view with the patient upright: Comparison is 11/11/2018. There is increased lung density in the upper lobe paramediastinal areas bilaterally. Remainder the lung garcia are clear. Cardiac size is normal. The mauri are unremarkable. Bony thorax is unremarkable. There is a left subclavian central venous catheter with the tip in the superior vena cava, unchanged. Impression: Increased lung density medially in the upper lobes bilaterally. Electronically Signed by Logan Bishop MD 03/19/2019 08:52 A
--- NOTE | 2019-03-19 09:45 | REP ---
CT ANGIOGRAM CHEST: TECHNIQUE: Axial contrast enhanced images from the thoracic inlet to the upper abdomen using 100 mL Isovue 370 intravenous contrast material with multiplanar reformations. There are nondisplaced fractures of the lateral right 6th and 7th ribs. These are acute, new when compared to prior study of 01/12/2019. Irregular band of density in the right upper lobe is stable with scattered interstitial opacities also stable. No new parenchymal opacities are seen. There is no evidence of thoracic aortic aneurysm or dissection with moderate atherosclerotic plaquing diffusely. Heart is not enlarged. No significant adenopathy is seen in the chest wall, mediastinum or hilar regions with no change in the appearance of these areas compared to 01/12/2019 exam. There are degenerative changes of the spine. IMPRESSION: Acute nondisplaced fractures of the lateral right 6th and 7th ribs. No other acute changes when compared to the prior study 01/12/2019. There is no pneumothorax, pleural effusion, or acute infiltrate. Electronically Signed by Logan Murphy MD 03/19/2019 11:26 P
[2019-03-19] MEDS ORDERED: HYDR-4513 PO (09:46)
[2019-03-19] MEDS ORDERED: ATOR80TA59 PO (09:46)
--- NOTE | 2019-03-19 09:56 | REP ---
CT ABDOMEN AND PELVIS WITH IV CONTRAST: TECHNIQUE: Axial contrast enhanced images from the lung bases to the pubic symphysis using 100 mL Isovue 370 intravenous contrast material with multiplanar reformations. The liver again demonstrates a small cyst in the left lobe unchanged. Gallbladder is grossly unremarkable. Spleen, adrenals, and pancreas are unremarkable and unchanged. There is a tiny cyst in the lower pole of the right kidney. There are complex cysts of the left kidney which are stable. There is again mild prominence of the renal pelves bilaterally, similar to the prior study. There is atherosclerotic calcification of the abdominal aorta without aneurysm. No adenopathy is seen. There is no free air or free fluid. I see no bowel wall thickening. Scattered mildly dilated small bowel loops appear similar to the prior study. No pelvic mass is seen. Urinary bladder appears unremarkable. No fracture is seen of the visualized osseous structures. There are degenerative changes of the spine. IMPRESSION: No acute abnormalities. No significant change when compared to the prior study of 10/21/2018. Electronically Signed by Logan Murphy MD 03/19/2019 11:26 P
[2019-03-19] MEDS ORDERED: IPRATROPIUM 0.5MG/ALBUTEROL 2.5MG INH SOL UD 3ML (DUONEB)(J7620) NEB ONE (10:30)
[2019-03-19] MEDS ORDERED: ALBUTEROL 90 MCG/ACT 8GM HFA INHALER INH PRN ×2 (10:30→19:00)
--- NOTE | 2019-03-19 10:58 | HPEPDOC ---
General Date of Admission Mar 19, 2019 at 10:09 Date of Service: Mar 19, 2019 Primary Care Physician: THAI SMART DO Chief Complaint The patient is a 63-year-old female admitted with a reason for visit of Adrenal Insufficiency. Source: Patient, Old records Exam Limitations: Mild cognitive slowing Timing/Duration: 4-6 hours Severity: Moderate Associated Symptoms: Chest Pain, Mechanical fall History of Present Illness Patient is 63 years old female with past medical history of small cell lung carcinoma diagnosed in August 2016 in her right upper lobe, noncompliant to treatment and she lost follow-up, COPD, adrenal insufficiency, schizophrenia, chronic hypertension, polyarthritis, tobacco abuse, presented hospital with right sided chest pain after mechanical fall. Patient stated that yesterday she fell because she lost her balance. In emergency room patient was found to have low blood pressure around 80/40, white blood count of 17, lactic acid of 3. CT scan of the pelvis and abdomen was unremarkable, CT chest showed no pulmonary emboli, no acute infiltrates, positive for acute broken ribs: 6, 7 nondisplaced. In emergency room patient received fluid resuscitation, hydrocortisone 100 mg IV, Levophed drip Home Medications Scheduled Aspirin (Aspirin EC) 81 Mg Tablet.dr, 81 MG PO DAILY, (Reported) Atorvastatin Calcium (Atorvastatin Calcium) Unknown Strength Tablet, Unknown Dos e PO DAILY, (Reported) PATIENT HAD BOTH 20MG AND 80MG FILLED ON 02/14/19. PATIENT CANNOT VERIFY WHICH STRENGTH SHE HAS BEEN TAKING. WHEN SHE WAS LAST ADMITTED IN OCTOBER, SHE WAS TAKING 80MG. WHEN DISCHARGED, IT APPEARS SHE WAS SWITCHED TO 20MG. THE RX FOR 20MG THAT WAS FILLED ON 02/14/19 WAS WRITTEN ON NOVEMBER 16, 2018 (DAY OF LAST DISCHARGE). Budesonide (Pulmicort Flexhaler) 180 Mcg Aer.pow.ba, 1 PUFF INH BID, (Reported) Citalopram Hydrobromide (Celexa) 10 Mg Tablet, 10 MG PO DAILY, (Reported) Clopidogrel Bisulfate (Plavix) 75 Mg Tablet, 75 MG PO DAILY, (Reported) Fludrocortisone Acetate (Fludrocortisone Acetate) 0.1 Mg Tablet, 0.1 MG PO DAILY, (Reported) Folic Acid (Folic Acid) 1 Mg Tablet, 1 MG PO DAILY, (Reported) Hydrocortisone (Hydrocortisone) 10 Mg Tablet, 10 MG PO BID, (Reported) Metformin HCl (Metformin HCl ER) 500 Mg Tab.er.24h, 500 MG PO DAILY, (Reported) Multivitamin (Multivitamins) 1 Each Tablet, 1 TAB PO DAILY, (Reported) Thiamine HCl (Thiamine HCl) 100 Mg Tablet, 100 MG PO DAILY, (Reported) Scheduled PRN Albuterol Sulfate (Ventolin Hfa) 18 Gm Hfa.aer.ad, 2 PUFF INH Q6H PRN for SHORTNESS OF BREATH, (Reported) Allergies Coded Allergies: No Known Allergies (Unverified , 03/19/19) Past Medical History Medical History Depression, neuropathy, small cell lung carcinoma, schizophrenia, chronic hypertension, adrenal insufficiency, tobacco abuse, type 2 diabetes, dyslipidemia Family History Father had COPD, mother had [place] Social History * Smoker: current smoker Alcohol: Denies (from previous records patient has a history of alcoholism) Drugs: denies A-FIB/CHADSVASC A-FIB History Current/History of A-Fib/PAF?: No Current PO Anticoag Therapy: No Review of Systems Constitutional: Denies: Chills, Fever Eyes: Denies: Pain, Vision change ENT: Denies: Head Aches, Ear Pain Skin: Denies: Rash, Lesions Pulmonary: Reports: Other Symptoms (right-sided chest pain) Cardiovascular: Denies: Palpitations, Orthopnea Gastrointestinal: Denies: Nausea, Vomiting Genitourinary: Denies: Dysuria, Frequency Hematologic: Denies: Bruising, Bleeding Excessively Endocrine: Denies: Polydipsia, Polyphagia Musculoskeletal: Reports: Other Symptoms (right-sided chest pain, tender right anterior part of lower chest); Denies: Neck Pain Neurological: Denies: Weakness, Numbness Psych: Reports: Mood Normal Physical Examination General Exam: Positive: Alert, Mild Distress, Other Eye Exam: Positive: PERRLA, Conjunctiva & lids normal ENT Exam: Positive: Atraumatic Neck Exam: Positive: Supple; Negative: JVD Chest Exam: Positive: Wheezing Heart Exam: Positive: Rate Normal Telemetry: Positive: No significant arrhythmia Abdomen Exam: Positive: Normal bowel sounds Extremity Exam: Negative: Clubbing, Cyanosis, Edema Neuro Exam: Positive: Strength at 5/5 X4 ext Psych Exam: Positive: Mental status NL, Mood NL Vital Signs Vital Signs Date Time Temp Pulse Resp B/P (MAP) Pulse Ox O2 Delivery O2 Flow Rate FiO2 03/19/19 10:20 104/57 (73) 03/19/19 10:19 102 88 03/19/19 06:41 96.1 18 Room Air Laboratory Data Labs 24H Laboratory Tests 2 03/19/19 07:41: Immature Granulocyte % (Auto) 0.5, White Blood Count 17.0H, Red Blood Count 5.35, Hemoglobin 17.3H, Hematocrit 49.4H, Mean Corpuscular Volume 92.3, Mean Corpuscular Hemoglobin 32.3, Mean Corpuscular Hemoglobin Concent 35.0, Red Cell Distribution Width 12.4, Platelet Count 234, Neutrophils (%) (Auto) 76.9H, Lymphocytes (%) (Auto) 14.5L, Monocytes (%) (Auto) 7.0H, Eosinophils (%) (Auto) 0.5, Basophils (%) (Auto) 0.6, Neutrophils # (Auto) 13.1H, Lymphocytes # (Auto) 2.5, Monocytes # (Auto) 1.2H, Eosinophils # (Auto) 0.1, Basophils # (Auto) 0.1, Nucleated Red Blood Cells % (auto) 0.0, Prothrombin Time 13.5, Prothromb Time International Ratio 1.06, Blood Gas Bicarbonate Standard 23.6, Venous Blood pH 7.309L, Venous Blood Partial Pressure CO2 56.8H, Venous Blood Partial Pressure O2 34.6, Venous Blood Total Carbon Dioxide 29.6H, Venous Blood HCO3 27.9H, Venous Blood Oxygen Saturation 66.9, Venous Blood Base Excess 0.0, Anion Gap 8, Glomerular Filtration Rate > 60.0, Lactic Acid Level 3.0*H, Calcium Level 8.4L, Magnesium Level 1.6L, Aspartate Amino Transf (AST/SGOT) 25, Alanine Aminotransferase (ALT/SGPT) 18, Alkaline Phosphatase 106, Total Bilirubin 0.7, Direct Bilirubin 0.2, Total Creatine Kinase 352H, Creatine Kinase MB 5.3H, Creatine Kinase MB Relative Index 1.51, Troponin I < 0.02, Total Protein 6.5, Albumin 2.9L, Albumin/Globulin Ratio 0.81L, Lipase 66L, Thyroid Stimulating Hormone (TSH) 2.690, Ethyl Alcohol Level < 0.003 03/19/19 10:01: Urine Color STRAW, Urine Appearance CLEAR, Urine pH 7.0, Urine Specific [place] 1.012, Urine Protein NEGATIVE, Urine Glucose (UA) NEGATIVE, Urine Ketones NEGATIVE, Urine Blood NEGATIVE, Urine Nitrite NEGATIVE, Urine Bilirubin NEGATIVE, Urine Urobilinogen 0.2, Urine Leukocyte Esterase NEGATIVE, Urine WBC (Auto) 0, Urine RBC (Auto) 0, Urine Hyaline Casts (Auto) 0, Urine Bacteria (Auto) NEGATIVE, Urine Squamous Epithelial Cells 0, Urine Sperm (Auto) CBC/BMP Laboratory Tests 03/19/19 07:41 Red Blood Count 5.35, Mean Corpuscular Volume 92.3, Mean Corpuscular Hemoglobin 32.3, Mean Corpuscular Hemoglobin Concent 35.0, Red Cell Distribution Width 12.4, Neutrophils (%) (Auto) 76.9 H, Lymphocytes (%) (Auto) 14.5 L, Monocytes (%) (Auto) 7.0 H, Eosinophils (%) (Auto) 0.5, Basophils (%) (Auto) 0.6, Neutrophils # (Auto) 13.1 H, Lymphocytes # (Auto) 2.5, Monocytes # (Auto) 1.2 H, Eosinophils # (Auto) 0.1, Basophils # (Auto) 0.1 Microbiology Microbiology 03/19/19 Respiratory Virus Panel (PCR) (SETH), Received Pending 03/19/19 Blood Culture, Received Pending 03/19/19 Blood Culture, Received Pending Assessment/Plan Patient is 63 years old female with past medical history of small cell lung carcinoma diagnosed in August 2016 in her right upper lobe, noncompliant to treatment and she lost follow-up, COPD, adrenal insufficiency, schizophrenia, chronic hypertension, polyarthritis, tobacco abuse, presented hospital with right sided chest pain after mechanical fall. Problems (1) Right-sided chest wall pain Problem Text: Secondary to acute fracture of right ribs 6 and 7 Incentive spirometry Continue to monitor Conservative treatment with pain management (2) Fracture of ribs, multiple Problem Text: See above (3) Adrenal insufficiency Status: Acute Problem Text: Patient developed hypotension most likely secondary to adrenal insufficiency Levophed IV Hydrocortisone IV started Most likely patient was noncompliant patient by mouth hydrocortisone Appreciate/agree with computer service technician consult (4) Hyponatremia Status: Resolved Problem Text: Hyponatremia most likely secondary to poor oral intake, superimposed with adrenal insufficiency and small lung carcinoma We will check urinalysis osmolarity, serum osmolarity, urine lites (5) Leukocytosis Status: Chronic Problem Text: Patient is afebrile, does not have acute infiltrates on the chest CT scan, abdomen and pelvis CT unremarkable Most likely reactive I will hold antibiotics for now (6) COPD (chronic obstructive pulmonary disease) Status: Chronic Problem Text: Patient has wheezes on exam secondary to COPD exacerbation Inhalers, incentive spirometry (7) Diabetes mellitus Status: Chronic Problem Text: Diabetes diet insulin sliding scale (8) Small cell lung cancer, right upper lobe Status: Acute Problem Text: Follow-up with Dr. Banuelos (9) Physical deconditioning Problem Text: PT/OT evaluation (10) DVT prophylaxis Plan / VTE VTE Prophylaxis Ordered?: Yes MARIA DE JESUS COSTA DO Mar 19, 2019 10:58
[2019-03-19] MEDS ORDERED: GLUCAGON FOR INJ 1 MG VIAL (J1610) SC PRN (11:30)
[2019-03-19] MEDS ORDERED: GLUCOSE 4 GM CHEW TABLET PO PRN (11:30)
[2019-03-19] MEDS ORDERED: NS 1,000 ML IV SCH (11:30)
[2019-03-19] MEDS ORDERED: DEXTROSE 50% 50 ML SYRINGE IV PRN (11:30)
[2019-03-19] MEDS ORDERED: MORPHINE 4 MG/ML 1ML VIAL/SYRINGE (J2270) IV PRN (12:15)
[2019-03-19] MEDS ORDERED: LORazepam 2 MG TAB PO PRN (12:15)
[2019-03-19] MEDS: HEPARIN SOD (PORCINE) 5000 UNITS/ML VIAL SC SCH ×2 (12:22→20:49)
[2019-03-19] MEDS: HumaLOG INSULIN (NovoLOG) PER UNIT SC SCH ×2 (12:23→17:30)
[2019-03-19 14:19] LABS: HEMATOCRIT 49.6 % (36.0-47.0); HEMOGLOBIN 17.1 g/dl (12.0-15.5); MEAN CORPUSCULAR HEMOGLOBIN 32.2 pg (27.0-33.0); MEAN CORPUSCULAR HGB CONC 34.5 g/dl (32.0-36.5); MEAN CORPUSCULAR VOLUME 93.4 fl (80.0-96.0); PLATELET COUNT, AUTOMATED 211 10^3/uL (150-450); RED BLOOD COUNT 5.31 10^6/uL (4.00-5.40); WHITE BLOOD COUNT 10.4 10^3/uL (4.0-10.0)
--- NOTE | 2019-03-19 15:02 | CR ---
DATE OF CONSULTATION: 03/19/2019 CHIEF COMPLAINT: Asked by Dr. Nixon to consult on Ms. Nirali Simmons for (dictation cut off). Ms. Simmons is a 63-year-old white female whom I originally met back in February of 2016 for an abnormal chest CT scan, and it showed a right upper lobe pulmonary nodule. Eventually, bronchoscopy was performed, and that was shown to be a small cell lung cancer, and she was referred to oncology. She was found to have Stage I T2N0M0 limited stage small-cell lung cancer. She was not a surgical candidate. She was treated with neoadjuvant carboplatin/etoposide and had been referred for stereotactic body radiation therapy (SBRT) to [place]. She had been treated with four cycles of carboplatin and etoposide 08/23/2016 through 10/27/2016 with the plans for SBRT to be done. She was (dictation cut off) by oncology, at least in per [facility] in January of this year, though she does not remember that appointment today. Ms. Simmons's medical care in regard to her lung cancer treatment is complicated by her mental health issues. When she arrived to the emergency department, she was found to have two broken right ribs but no flail chest. She was hypotensive with a blood pressure around 80/40. She has a history of chronic hypotension, but I do not know where she typically runs. She received fluid resuscitation and then received hydrocortisone times one. She was briefly on a Levophed drip, but that had been discontinued by the time she came to the emergency room. Her lactic acid was 3 but no presumed site of infection. CT scan showed no acute infections, and she has no history suggestive of an infectious process. Reportedly, this morning, Ms. Simmons states that she fell on her right side. She attributes it to losing her balance related to the inability to feel her feet well. She landed on her right side. She denies any dizziness or lightheadedness. No shortness of breath. No chest pain or pressure. No nausea or abdominal pain. She has had no fevers, chills, drenching night sweats. She does not feel she is systemically ill. She reports that she has fallen in the recent past. She has had other falls in the past. Ms. Simmons has a history of alcohol abuse, though it is difficult to tell how long she has been sober. There were several notes in [facility] that state back that she quit in 2017, which she confirms for me today, though I see other notes that state that she may still be drinking alcohol. She is still smoking one and a half packs per day. PAST MEDICAL HISTORY: 1. Small cell lung cancer, stage I. A. Treated with four cycles of chemotherapy in 2017 but was lost to followup until September of 2017. B. Status post SBRT, though it is not certain that she completed that therapy. 2. Chronic hypotension. 3. Depression. 4. Neuropathy. 5. Hepatosteatosis. 6. Schizophrenia. 7. Polyarthritis. 8. Diabetes mellitus, type 2. 9. Dyslipidemia. 10. Adrenal insufficiency per chart. 11. History of ethyl alcohol (EtOH) abuse, uncertain if it is active. 12. Tobacco usage, ongoing. SOCIAL HISTORY: Ms. Simmons is . She lives with her boyfriend in an apartment. She reports to me that she is not drinking alcohol. She is smoking one and a half packs per day. FAMILY HISTORY: Her father is and had chronic obstructive pulmonary disease (COPD). Her mother is and had a myocardial infarction. She has two brothers who in a motor vehicle accident (MVA). She has a son and a daughter who are alive and well. She has four brothers and sisters who are healthy. REVIEW OF SYSTEMS: Per history of present illness (HPI). Pertinent review of systems are negative. PHYSICAL EXAMINATION: General: Ms. Simmons is lying in bed in no acute distress. She can complete full sentences. No cough at evaluation. She does wince when moved to the sitting position. Vital signs: Pulse 104, blood pressure 117/89 with a mean arterial pressure (MAP) of 101, respiratory rate in teens, SpO2 92% on room air. HEENT: Anicteric. Pupils equal, round, and reactive to light (PERRL). Nares:: Patent bilaterally, moist mucosa. Oropharynx clear. No lesions. No evidence of drainage in the posterior pharynx. Edentulate. Neck: Supple, without jugular venous distention (JVD), thyromegaly, masses. Trachea is midline. Lymph: Without cervical or supraclavicular lymphadenopathy. Chest: Normal shape. Lungs: Symmetric excursion, mildly diminished air entry. No wheeze, rhonchi, or crackle on tidal excursion. Perhaps mildly prolonged expiratory phase. No accessory muscle usage or retractions. Cardiovascular: Tachycardiac, regular rhythm, normal S1, S2. No murmur, rub, or gallop appreciated. Abdomen: Positive bowel sounds, soft, nondistended, nontender, no hepatosplenomegaly or masses appreciated. Extremities: Without clubbing, cyanosis, or edema. No calf tenderness. Palpable pedal pulses bilaterally. LABORATORY DATA: Complete blood count (CBC) from this morning showed a hemoglobin of 17.3, hematocrit 49.4, platelet count of 234,000, white blood cell count of 17,000, with a differential of 77% neutrophils, 15% lymphocytes, 7% monocytes. Chemistry shows sodium 131, potassium 4.0, chloride 94, bicarbonate 29, anion gap 8, BUN 2, creatinine 0.6, glucose 94, lactic acid 3.0, calcium 8.4, magnesium 1.6, total bilirubin 0.7, AST 25, ALT 18, alkaline phosphatase 106, CK 352, with a CK-MB of 5.3, troponin I less than 0.02, total protein 6.5, albumin 2.9, lipase 66, TSH 2.69. INR 1.06. Venous blood gas was 7.31/57/35 with a measured saturation of 67%. I reviewed her chest CT scan, as well as the report. That CT scan showed normal-appearing cardiac silhouette and pulmonary vascular shadows. No mediastinal or hilar adenopathy. No acute infiltrates. There were nondisplaced fractures of the right 6th and 7th rib. There remained right upper lobe opacity. This is in the same location as her known small-cell cancer and is perhaps slightly worse than from her last chest CT scan, which was in January of 2019. I reviewed the abdominal CT angiography report, which showed no acute change to prior study of 10/21/2018. IMPRESSION: 1. Hypotension. Per the chart, she has a history of adrenal insufficiency, and she is listed as being on fludrocortisone and hydrocortisone daily, though I am not certain how compliant she is with medications. I am not aware of how long she may have been down after falling. Her CK is mildly elevated, and it may suggest that she had been down for a period of time. 2. Elevated lactic acid. I suspect this is secondary to hypoperfusion. She has no findings suggestive of infection. 3. Adrenal insufficiency. 4. Stage I small cell cancer, treated or partially treated with chemotherapy and possibly SBRT. Ms. Simmons is not able to give me a history as to whether or not she ever went for SBRT. At first, she told me no, and then later she said maybe. 5. Schizophrenia. 6. Chronic hypotension. 7. Diabetes mellitus, type 2. 8. History of ethyl alcohol (EtOH) abuse. Difficult to determine if it is still accurate. 9. Tobacco usage, ongoing. RECOMMENDATIONS: 1. Agree with hydrocortisone dose and anticipated that she would have an increase in her pressure in 4-6 hours, which appears to have been the case. 2. At this point, I would place her back on her outpatient regimen and follow her clinically. 3. Would continue on her outpatient diabetic regimen with coverage with sliding scale insulin as needed. Given her mildly elevated CK and has good urine output. 4. Would not start nebulized inhaled corticosteroids, as she is capable of using an MDI. 5. Agree with MVI thiamine and folate. 6. Agree with Serax program, though from many notes that her alcoholism may be quiescent. Therefore, would not use standing medications but rather use the as needed regimen. MEDICATIONS: - albuterol metered-dose inhaler (MDI) two puffs every 6 hours as needed - aspirin 81 mg by mouth every day - atorvastatin unknown strength - budesonide Flexhaler one puff twice a day - Celexa 10 mg by mouth every day - Plavix 75 mg by mouth every day - fludrocortisone 0.1 mg by mouth every day - folic acid 1 mg by mouth every day - hydrocortisone 10 mg by mouth twice a day - metformin 500 mg by mouth daily - multivitamin one by mouth every day - thiamine 100 mg by mouth every day ALLERGIES: No known drug allergies. CRITICAL CARE TIME: 35 minutes, not including procedure time.
[2019-03-19] MEDS: MAGNESIUM CHLORIDE 64 MG TABCR (SLO MAG) PO SCH (16:46)
[2019-03-19] MEDS ORDERED: SODIUM CHLORIDE 0.9% INJ 10 ML SYR IV PRN (18:30)
[2019-03-19] MEDS ORDERED: IPRATROPIUM 0.5MG/ALBUTEROL 2.5MG INH SOL UD 3ML (DUONEB)(J7620) NEB PRN ×2 (18:45→19:00)
[2019-03-19] MEDS ORDERED: FUROSEMIDE 20 MG/2 ML VIAL (J1940) IV ONE (19:00)
[2019-03-19] MEDS ORDERED: BUDESONIDE 0.5 MG/2 ML INHALATION SUSPENSION INH SCH (20:00)
[2019-03-19] MEDS: FLUTICASONE HFA 110 MCG 12 GM INHALER (FLOVENT) INH SCH (20:36)
[2019-03-19] MEDS ORDERED: PERCOCET 5MG/325MG TAB PO PRN (20:45)
[2019-03-19] MEDS ORDERED: HYDROCORTISONE 10 MG TAB PO SCH (21:00)
[2019-03-20] VITALS (8 sets, daily range): BP systolic 88–106; BP diastolic 54–71
--- NOTE | 2019-03-20 00:34 | ECGEPIP ---
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
[2019-03-20 05:47] LABS: ALBUMIN 2.8 GM/DL (3.2-5.2); ALT/SGPT 17 U/L (12-78); BILIRUBIN,TOTAL 0.4 MG/DL (0.2-1.0); BLOOD UREA NITROGEN 4 MG/DL (7-18); CALCIUM LEVEL 8.1 MG/DL (8.8-10.2); CARBON DIOXIDE LEVEL 30 MEQ/L (21-32); CHLORIDE LEVEL 98 MEQ/L (98-107); CREATININE FOR GFR 0.51 MG/DL (0.55-1.30); GLOMERULAR FILTRATION RATE > 60.0 (>45); GLUCOSE, FASTING 78 MG/DL (70-100); MAGNESIUM LEVEL 1.7 MG/DL (1.8-2.4); POTASSIUM SERUM 3.1 MEQ/L (3.5-5.1); SODIUM LEVEL 134 MEQ/L (136-145); TOTAL PROTEIN 6.8 GM/DL (6.4-8.2)
[2019-03-20 07:09] LABS: HEMATOCRIT 44.2 % (36.0-47.0); HEMOGLOBIN 15.4 g/dl (12.0-15.5); MEAN CORPUSCULAR HEMOGLOBIN 31.8 pg (27.0-33.0); MEAN CORPUSCULAR HGB CONC 34.8 g/dl (32.0-36.5); MEAN CORPUSCULAR VOLUME 91.1 fl (80.0-96.0); PLATELET COUNT, AUTOMATED 221 10^3/uL (150-450); RED BLOOD COUNT 4.85 10^6/uL (4.00-5.40); WHITE BLOOD COUNT 12.8 10^3/uL (4.0-10.0)
[2019-03-20] MEDS: HumaLOG INSULIN (NovoLOG) PER UNIT SC SCH ×3 (07:30→17:30)
[2019-03-20] MEDS ORDERED: metFORMIN XR 500MG TAB *GLUCOPHAGE XR PO SCH (08:00)
[2019-03-20] MEDS ORDERED: HYDROCORTISONE 100 MG/2 ML VIAL (J1720) IV SCH (09:00)
[2019-03-20] MEDS: HEPARIN SOD (PORCINE) 5000 UNITS/ML VIAL SC SCH ×2 (09:00→21:41)
[2019-03-20] MEDS: CitaloPRAM (CeleXA) 10 MG TABLET PO SCH (09:00)
[2019-03-20] MEDS ORDERED: FOLIC ACID 1 MG TAB PO SCH (09:00)
[2019-03-20] MEDS ORDERED: THIAMINE 100 MG TAB PO SCH (09:00)
[2019-03-20] MEDS ORDERED: FLUDROCORTISONE ACETATE 0.1 MG TAB PO SCH (09:00)
[2019-03-20] MEDS: FLUTICASONE HFA 110 MCG 12 GM INHALER (FLOVENT) INH SCH (09:28)
[2019-03-20] MEDS: FOLIC ACID 1 MG TAB PO SCH (09:59)
[2019-03-20] MEDS: ATORVASTATIN 20 MG TAB PO SCH (10:00)
[2019-03-20] MEDS: MAGNESIUM CHLORIDE 64 MG TABCR (SLO MAG) PO SCH (10:01)
[2019-03-20] MEDS: CLOPIDOGREL 75 MG TAB PO SCH (10:01)
[2019-03-20] MEDS: THIAMINE 100 MG TAB PO SCH ×2 (10:02→21:41)
[2019-03-20] MEDS: MULTIVITAMINS/MINERALS THERAP 1 TAB PO SCH (10:02)
[2019-03-20] MEDS: SODIUM CHLORIDE 0.9% INJ 10 ML SYR IV SCH (10:03)
[2019-03-20] MEDS: ASPIRIN 81 MG ENTERIC TAB PO SCH (10:05)
--- NOTE | 2019-03-20 11:08 | MEDONC ---
HEMATOLOGY/ONCOLOGY CONSULTATION DATE OF SERVICE: 03/19/2019 This is a hematology/oncology consultation called by Dr. Brock Nixon REASON FOR CONSULTATION: History of right upper lobe lung cancer. This is a very pleasant, 63-year-old white female with a diagnosis of small cell lung carcinoma originally diagnosed back in 2016. The patient had received chemotherapy and was admitted to the hospital due to persistent loss of balance, low blood pressure, hypotension, and leukocytosis. The patient was evaluated for possible trauma as well as was given a CT scan of the abdomen and pelvis, which was unremarkable. Chest x-ray had shown no signs of any acute PE or acute event. However, she did show 6th and 7th nondisplaced acute rib fractures. The patient was given IV fluids as well as hydrocortisone in the emergency room and was placed on a Levophed drip due to hypotension and was transferred to the ICU where she is currently. She is currently awake and alert. She is able to make her needs known and complains of pain on the side of her fractured ribs. She was originally diagnosed with a limited stage small cell lung carcinoma stage T2N0M0 August of 2016 right upper lobe status post carboplatinum and top aside times four cycles starting in August 2016. She also had a history of SBRT to a residual 1.4 cm right upper lobe tumor in January of 2017. The patient was lost to followup until September of 2017 and had restaging done of the chest showing a large spiculated right upper lobe lesion extending into the right hilus. She had been seen in the oncology clinic and was found to have no change in her current status and was to be followed up at 2 month intervals. She was due to come this month to see Dr. Wendy Banuelos when she ended up in the emergency room. PAST MEDICAL HISTORY: Noted for COPD, adrenal insufficiency (unknown diagnostic criteria), schizophrenia, hypertension, polyarthritis, tobacco abuse, non-insulin dependent diabetes. MEDICATIONS (include): - aspirin 81 mg p.o. daily - atorvastatin calcium 1 tablet p.o. daily - Pulmicort Flexhaler 180 mcg 1 puff b.i.d. - Celexa 10 mg p.o. daily - Plavix 75 mg p.o. daily - fludrocortisone acetate 0.1 mg p.o. daily - folic acid 1 mg p.o. daily - hydrocortisone 10 mg tablet 1 tablet p.o. b.i.d. - metformin 500 mg p.o. daily - MVI 1 tablet p.o. daily - thiamine 100 mg p.o. daily ALLERGIES: NO KNOWN DRUG ALLERGIES. Her past medical history also includes depression, small cell lung carcinoma, schizophrenia, chronic hypertension, type 2 diabetes, dyslipidemia, and chemotherapy induced neuropathy. FAMILY HISTORY: Father COPD. Mother with an HI. SOCIAL HISTORY: Currently smoking. Has a social work case manager who oversees her care. REVIEW OF SYSTEMS: She relates being tired, feels fatigued, weak, somewhat cold, as well as pain in the right side of the chest especially worsened on breathing. Currently managed with some of the pain medication, although this appears to be wearing off at this point. The patient also relates loose diarrheal stools, brown, no blood. PHYSICAL EXAMINATION: Her ECOG is 2/4. Her pulse is 94, respiratory rate is 22, pulse oximetry is 94, oxygen flow rate currently is on 2 L nasal cannula. Her physical examination is generalized pallor. HEENT is normocephalic, atraumatic. PERRL. EOMI. Sclerae is white, nonicteric. Oropharynx is otherwise clear. Her neck is supple with no adenopathy. Chest: Decreased breath sounds at the bases. Cardiovascular: S1 and S2 are appreciated with no murmurs. Abdomen is otherwise soft, nontender. No cyanosis, no clubbing or any edema. The patient has some slight excoriations on the anterior aspects of her lower shins bilaterally. The patient has diarrhea stool liquidy brown, no dark tarry appearance to it. Neurological: The patient is able to answer questions and engage with the examiner while on the Levophed infusion. LABORATORIES: Show a WBC count of 17,000, hemoglobin and hematocrit of 17/49, MCV of 92. Neutrophils are 76. Lymphocytes are 14. Chemistries show a sodium of 131, potassium 4, chloride 94, CO2 29, BUN of 2, creatinine 0.56, magnesium of 1.6, AST 25, ALT of 18, alkaline phosphatase of 160. TSH is 2.69. The patient had any EtOH level, which was less than 0.003. Coagulation studies showed a PT of 13.5 and INR of 1.06, and a urine which was negative for leukocyte esterase. IMAGING STUDIES: She had an angiography or CT of the chest showing acute nondisplaced fractures of the lateral 6th and 7th ribs. No other acute changes when compared to a prior study of 01/12/2019. There was an irregular band density in the right upper lobe stable with scattered interstitial opacities which were also stable. There were no new parenchymal opacities that were seen. There was no evidence of a thoracic aortic aneurysm. A dissection with moderate atherosclerotic plaquing diffusely. Heart is not enlarged. No significant adenopathy is seen in the chest wall, mediastinal or hilar regions with no changes in the appearance of these areas. There is no degenerative areas of the spine. ASSESSMENT: At this time is small cell lung carcinoma currently with stable findings, hyponatremia, hypotension, adrenal insufficiency with no evidence of any pneumothorax, pleural effusion, acute infiltrate, pulmonary embolism, with new nondisplaced fractures of the lateral right 6th and 7th rib with no evidence of any parenchymal densities or opacities. PLAN: The patient will be treated medically. No oncologic intervention is anticipated at this admission. The patient can followup with oncology with Dr. Wendy Banuelos on a routine basis post discharge. Electronically Signed by Celina Perdomo MD 03/21/2019 02:33 P DD: Celina Perdomo MD 03/19/2019 01:16 P DT: lesa 03/20/2019 10:25 A CC:
--- NOTE | 2019-03-20 11:53 | IPNPDOC ---
Text Note Date of Service The patient was seen on 03/20/19. NOTE Subjective: Patient stated that overall she is feeling better, blood pressures stabilized. Patient denies fever, chills, nausea, vomiting, diarrhea or dysuria Objective: General Exam: Positive: Alert, Mild Distress, Other Eye Exam: Positive: PERRLA, Conjunctiva & lids normal ENT Exam: Positive: Atraumatic Neck Exam: Positive: Supple; Negative: JVD Chest Exam: Positive: Mild wheezes bilaterally Heart Exam: Positive: Rate Normal Abdomen Exam: Positive: Normal bowel sounds Extremity Exam: Negative: Clubbing, Cyanosis, Edema, multiple ingrown yellow nails Neuro Exam: Positive: Strength at 5/5 X4 ext Patient is 63 years old female with past medical history of small cell lung carcinoma diagnosed in August 2016 in her right upper lobe, noncompliant to treatment and she lost follow-up, COPD, adrenal insufficiency, schizophrenia, chronic hypertension, polyarthritis, tobacco abuse, presented hospital with right sided chest pain after mechanical fall. (1) Right-sided chest wall pain Secondary to acute fracture of right ribs 6 and 7 Incentive spirometry Continue to monitor Conservative treatment with pain management (2) Fracture of ribs, multiple Problem Text: See above (3) Adrenal insufficiency/ adrenal crisis Patient developed hypotension most likely secondary to adrenal crisis due to adrenal insufficiency secondary to noncompliance to medications Patient received Levophed IV in the ICU Hydrocortisone IV started, I tapered down today hydrocortisone to 50 mg in 24 hours. I will start by mouth hydrocortisone with fludrocortisone tomorrow with taper Most likely patient was noncompliant patient by mouth hydrocortisone and fludrocortisone (4) Hyponatremia Resolved Hyponatremia most likely secondary to poor oral intake, superimposed with adr enal insufficiency and small lung carcinoma We will check urinalysis osmolarity, serum osmolarity, urine lites (5) Leukocytosis Patient is afebrile, does not have acute infiltrates on the chest CT scan, abdomen and pelvis CT unremarkable Most likely reactive, improved I will hold antibiotics for now, no obvious source of infection (6) COPD (chronic obstructive pulmonary disease) Problem Text: Patient has wheezes on exam secondary to COPD exacerbation Inhalers, incentive spirometry (7) Diabetes mellitus Glucose levels under control Problem Text: Diabetes diet insulin sliding scale (8) Small cell lung cancer, right upper lobe Problem Text: Follow-up with Dr. Banuelos (9) Physical deconditioning Problem Text: PT/OT evaluation 10 Onychomycosis/ ingrown nails Follow-up with laborer shaft sinking in the outpatient settings Lisa HARDIN, I+O VSLisa, I+O Laboratory Tests 03/19/19 14:07 Red Blood Count 5.31, Mean Corpuscular Volume 93.4, Mean Corpuscular Hemoglobin 32.2, Mean Corpuscular Hemoglobin Concent 34.5, Red Cell Distribution Width 12.5 03/20/19 04:58 Calcium Level 8.1 L, Aspartate Amino Transf (AST/SGOT) 28, Alanine Aminotransferase (ALT/SGPT) 17, Alkaline Phosphatase 102, Total Bilirubin 0.4, Total Protein 6.8, Albumin 2.8 L 03/20/19 06:55 Red Blood Count 4.85, Mean Corpuscular Volume 91.1, Mean Corpuscular Hemoglobin 31.8, Mean Corpuscular Hemoglobin Concent 34.8, Red Cell Distribution Width 12.4 Vital Signs Date Time Temp Pulse Resp B/P (MAP) Pulse Ox O2 Delivery O2 Flow Rate FiO2 03/20/19 08:00 97.7 108 20 98/62 (74) 95 2.0 03/20/19 08:00 95 03/19/19 11:20 Nasal Cannula I&O- Last 24 Hours up to 6 AM 03/20/19 06:00 Intake Total 2980 ml Output Total 3035 ml Balance -55 ml MARIA DE JESUS COSTA DO Mar 20, 2019 11:53
[2019-03-20] MEDS ORDERED: POTASSIUM CHLORIDE 10 MEQ SR TABLET PO ONE (12:00)
--- NOTE | 2019-03-20 15:55 | IPN ---
DATE: 03/20/2019 NOTE: Ms. Simmons did well overnight. She feels better this morning. Her pain is well-controlled. She has a cough but cannot expectorate. No nausea or emesis. She has been able to tolerate oral foods. No other concerns expressed. Ms. Simmons assures me she is taking all of her medications at home. Historically, there has been some difficulty with compliance with medication regimens. OBJECTIVE/PHYSICAL EXAMINATION: GENERAL: Ms. Simmons is lying in bed in no acute distress. She can complete full sentences. No cough at evaluation. She is able to get to a sitting position easier then she was able to yesterday. VITAL SIGNS: Temperature 97.7, pulse 108, respiratory rate 20, blood pressure 98/62 with a mean arterial pressure (MAP) 74, SpO2 95% on FiO2 of 2 liters. HEENT: Anicteric. Nares: Patent bilaterally. Oropharynx clear and moist mucosa. NECK: Is supple. No jugular venous distention (JVD), trachea is midline. LYMPHS: Without cervical or supraclavicular lymphadenopathy. LUNGS: Symmetric excursion, mildly diminished air entry bilaterally. No rhonchi or crackles. There is scattered expiratory wheezes. Normal to mildly prolonged expiratory phase. No accessory muscle usage or retractions. CARDIOVASCULAR: Tachycardiac, regular rhythm, normal S1 and S2, no murmur, rub or gallop appreciated. ABDOMEN: Positive bowel sounds, soft, nondistended, nontender, no hepatosplenomegaly or masses appreciated. EXTREMITIES: Warm and well-perfused, without clubbing, cyanosis or edema. Palpable pedal pulses bilaterally. LABORATORY DATA: CBC from this morning showed a hemoglobin of 15.4, hematocrit 44.2, platelet count 221,000, white blood cell count 12,800. Chemistries showed a sodium 134, potassium 3.1, chloride 98, bicarbonate 30, anion gap 6, BUN 4, creatinine 0.51, glucose 78, lactic acid 2.1, calcium 8.1, magnesium 1.7, total bilirubin 0.4, AST 28, ALT 17, alkaline phosphatase 102, total protein 6.8, albumin 2.8. Procalcitonin pending. IMPRESSION: 1. Hypotension. Was secondary to hypovolemia. She appears to be responding to fluid resuscitation. Of course it may also have been secondary to adrenal insufficiency as it is not clear that she was truly taking her replacement therapy. 2. Increased lactic acid level. I again feel this was secondary to hypoperfusion and should continue to improve. No signs to suggest an infection. Procalcitonin pending. 3. Adrenal insufficiency, on replacement therapy. 4. Small-cell lung cancer as detailed in previous notes. Following with oncology. 5. Chronic hypotension. 6. Diabetes mellitus, type 2. 7. Schizophrenia. 8. History of ethyl alcohol (EtOH) abuse of uncertain activity. 9. Tobacco usage, ongoing at the time of admission. RECOMMENDATIONS: 1. Given her elevated creatinine kinase (CK) would continue to make certain that she is appropriately hydrated until that clears. 2. I have given her wheezing on exam and she will change her inhaled corticosteroid to a combined inhaled corticosteroids/LABA. Recommend this be continued on discharge with whenever agent is covered by her insurance. 3. Would place her on her outpatient dosage of her adrenal insufficiency medications. 4. The patient has been transferred out of the progressive care unit (PCU) and no longer has intensive requirements. We will sign off for now. Please reconsult the pulmonary service if there are further difficulties.
[2019-03-20] MEDS: SYMBICORT 80/4.5MCG INHALER 6GM INH SCH (20:21)
[2019-03-21] VITALS (10 sets, daily range): BP systolic 74–109; BP diastolic 44–75
[2019-03-21 07:09] LABS: HEMATOCRIT 45.2 % (36.0-47.0); HEMOGLOBIN 15.5 g/dl (12.0-15.5); MEAN CORPUSCULAR HEMOGLOBIN 31.6 pg (27.0-33.0); MEAN CORPUSCULAR HGB CONC 34.3 g/dl (32.0-36.5); MEAN CORPUSCULAR VOLUME 92.1 fl (80.0-96.0); PLATELET COUNT, AUTOMATED 218 10^3/uL (150-450); RED BLOOD COUNT 4.91 10^6/uL (4.00-5.40); WHITE BLOOD COUNT 13.5 10^3/uL (4.0-10.0)
[2019-03-21] MEDS: HumaLOG INSULIN (NovoLOG) PER UNIT SC SCH ×3 (07:23→17:02)
[2019-03-21] MEDS: SYMBICORT 80/4.5MCG INHALER 6GM INH SCH ×2 (07:46→20:35)
[2019-03-21 08:01] LABS: BLOOD UREA NITROGEN 10 MG/DL (7-18); CARBON DIOXIDE LEVEL 30 MEQ/L (21-32); CHLORIDE LEVEL 101 MEQ/L (98-107); CREATININE FOR GFR 0.39 MG/DL (0.55-1.30); GLOMERULAR FILTRATION RATE > 60.0 (>45); GLUCOSE, FASTING 78 MG/DL (70-100); POTASSIUM SERUM 3.4 MEQ/L (3.5-5.1); SODIUM LEVEL 137 MEQ/L (136-145)
[2019-03-21] MEDS: THIAMINE 100 MG TAB PO SCH ×2 (08:17→21:48)
[2019-03-21] MEDS: MAGNESIUM CHLORIDE 64 MG TABCR (SLO MAG) PO SCH (08:17)
[2019-03-21] MEDS: ATORVASTATIN 20 MG TAB PO SCH (08:18)
[2019-03-21] MEDS: FLUDROCORTISONE ACETATE 0.1 MG TAB PO SCH (08:18)
[2019-03-21] MEDS: FOLIC ACID 1 MG TAB PO SCH (08:18)
[2019-03-21] MEDS: HEPARIN SOD (PORCINE) 5000 UNITS/ML VIAL SC SCH ×2 (08:18→21:48)
[2019-03-21] MEDS: MULTIVITAMINS/MINERALS THERAP 1 TAB PO SCH (08:18)
[2019-03-21] MEDS: ASPIRIN 81 MG ENTERIC TAB PO SCH (08:18)
[2019-03-21] MEDS: CitaloPRAM (CeleXA) 10 MG TABLET PO SCH (08:18)
[2019-03-21] MEDS: CLOPIDOGREL 75 MG TAB PO SCH (08:18)
[2019-03-21] MEDS: SODIUM CHLORIDE 0.9% INJ 10 ML SYR IV SCH (08:19)
[2019-03-21] MEDS ORDERED: HYDROCORTISONE 10 MG TAB PO SCH ×3 (09:00)
[2019-03-21] MEDS ORDERED: SLF 3 ML SYR IV PRN (10:30)
--- NOTE | 2019-03-21 11:17 | IPNPDOC ---
Text Note Date of Service The patient was seen on 03/21/19. NOTE Subjective: Patient stated that she has a good appetite, no any acute events overnight. Blood pressure improved and has been stable Patient denies fever, chills, nausea, vomiting, diarrhea or dysuria Objective: General Exam: Positive: Alert, Mild Distress, Other Eye Exam: Positive: PERRLA, Conjunctiva & lids normal ENT Exam: Positive: Atraumatic Neck Exam: Positive: Supple; Negative: JVD Chest Exam: Positive: Mild wheezes bilaterally Heart Exam: Positive: Rate Normal Abdomen Exam: Positive: Normal bowel sounds Extremity Exam: Negative: Clubbing, Cyanosis, Edema, multiple ingrown yellow nails Neuro Exam: Positive: Strength at 5/5 X4 ext Patient is 63 years old female with past medical history of small cell lung carcinoma diagnosed in August 2016 in her right upper lobe, noncompliant to treatment and she lost follow-up, COPD, adrenal insufficiency, schizophrenia, chronic hypertension, polyarthritis, tobacco abuse, presented hospital with right sided chest pain after mechanical fall. (1) Right-sided chest wall pain Secondary to acute fracture of right ribs 6 and 7 Incentive spirometry Continue to monitor Conservative treatment with pain management (2) Fracture of ribs, multiple Problem Text: See above (3) Adrenal insufficiency/ adrenal crisis Patient developed hypotension most likely secondary to adrenal crisis due to adrenal insufficiency secondary to noncompliance to medications Patient received Levophed IV in the ICU Hydrocortisone IV started, I tapered down today hydrocortisone to 50 mg in 24 hours. I started by mouth hydrocortisone with fludrocortisone on 03/21/19 with taper Most likely patient was noncompliant patient by mouth hydrocortisone and fludrocortisone (4) Hyponatremia Resolved Hyponatremia most likely secondary to poor oral intake, superimposed with adrenal insufficiency and small lung carcinoma urinalysis osmolarity, serum osmolarity, urine lites pending (5) Leukocytosis Patient is afebrile, does not have acute infiltrates on the chest CT scan, abdomen and pelvis CT unremarkable Most likely reactive, improved I will hold antibiotics for now, no obvious source of infection (6) COPD (chronic obstructive pulmonary disease) Problem Text: Patient has wheezes on exam secondary to COPD exacerbation Inhalers, incentive spirometry (7) Diabetes mellitus Glucose levels under control Problem Text: Diabetes diet insulin sliding scale (8) Small cell lung cancer, right upper lobe Problem Text: Follow-up with Dr. Banuelos (9) Physical deconditioning Problem Text: PT/OT evaluation 10 Onychomycosis/ ingrown nails Follow-up with nutrition services worker in the outpatient settings Lisa HARDIN, I+O VSLisa, I+O Laboratory Tests 03/21/19 06:55 Red Blood Count 4.91, Mean Corpuscular Volume 92.1, Mean Corpuscular Hemoglobin 31.6, Mean Corpuscular Hemoglobin Concent 34.3, Red Cell Distribution Width 12.9, Calcium Level 8.0 L Vital Signs Date Time Temp Pulse Resp B/P (MAP) Pulse Ox O2 Delivery O2 Flow Rate FiO2 03/21/19 09:13 88/58 (68) 03/21/19 08:00 104 03/21/19 08:00 96.7 18 92 03/21/19 04:00 1.0 03/20/19 18:00 92 03/19/19 11:20 Nasal Cannula I&O- Last 24 Hours up to 6 AM 03/21/19 06:00 Intake Total 1330 ml Output Total 100 ml Balance 1230 ml MARIA DE JESUS COSTA DO Mar 21, 2019 11:17
[2019-03-21] MEDS: SLF 3 ML SYR IV SCH ×2 (11:35→21:49)
[2019-03-21] MEDS ORDERED: POTASSIUM CHLORIDE 10 MEQ SR TABLET PO ONE (12:00)
[2019-03-21] MEDS: HYDROCORTISONE 10 MG TAB PO SCH (17:02)
[2019-03-21] MEDS ORDERED: HYDROCORTISONE 5MG TABLET PO SCH (18:00)
[2019-03-22] VITALS (7 sets, daily range): BP systolic 80–112; BP diastolic 51–69
[2019-03-22] MEDS: SLF 3 ML SYR IV SCH ×3 (05:00→20:52)
[2019-03-22 05:30] LABS: HEMATOCRIT 40.5 % (36.0-47.0); HEMOGLOBIN 13.8 g/dl (12.0-15.5); MEAN CORPUSCULAR HEMOGLOBIN 31.2 pg (27.0-33.0); MEAN CORPUSCULAR HGB CONC 34.1 g/dl (32.0-36.5); MEAN CORPUSCULAR VOLUME 91.6 fl (80.0-96.0); PLATELET COUNT, AUTOMATED 204 10^3/uL (150-450); RED BLOOD COUNT 4.42 10^6/uL (4.00-5.40); WHITE BLOOD COUNT 16.3 10^3/uL (4.0-10.0)
[2019-03-22 05:53] LABS: BLOOD UREA NITROGEN 7 MG/DL (7-18); CALCIUM LEVEL 7.8 MG/DL (8.8-10.2); CARBON DIOXIDE LEVEL 31 MEQ/L (21-32); CHLORIDE LEVEL 97 MEQ/L (98-107); CREATININE FOR GFR 0.38 MG/DL (0.55-1.30); GLOMERULAR FILTRATION RATE > 60.0 (>45); GLUCOSE, FASTING 80 MG/DL (70-100); POTASSIUM SERUM 3.5 MEQ/L (3.5-5.1); SODIUM LEVEL 133 MEQ/L (136-145)
[2019-03-22] MEDS: SYMBICORT 80/4.5MCG INHALER 6GM INH SCH ×2 (07:20→20:33)
[2019-03-22] MEDS: HumaLOG INSULIN (NovoLOG) PER UNIT SC SCH ×3 (07:22→16:57)
[2019-03-22] MEDS: HEPARIN SOD (PORCINE) 5000 UNITS/ML VIAL SC SCH ×2 (07:49→20:52)
[2019-03-22] MEDS: CLOPIDOGREL 75 MG TAB PO SCH (07:49)
[2019-03-22] MEDS: MULTIVITAMINS/MINERALS THERAP 1 TAB PO SCH (07:49)
[2019-03-22] MEDS: ATORVASTATIN 20 MG TAB PO SCH (07:50)
[2019-03-22] MEDS: HYDROCORTISONE 10 MG TAB PO SCH ×2 (07:50→16:58)
[2019-03-22] MEDS: FLUDROCORTISONE ACETATE 0.1 MG TAB PO SCH (07:50)
[2019-03-22] MEDS: FOLIC ACID 1 MG TAB PO SCH (07:50)
[2019-03-22] MEDS: CitaloPRAM (CeleXA) 10 MG TABLET PO SCH (07:50)
[2019-03-22] MEDS: ASPIRIN 81 MG ENTERIC TAB PO SCH (07:50)
[2019-03-22] MEDS: MAGNESIUM CHLORIDE 64 MG TABCR (SLO MAG) PO SCH (07:51)
[2019-03-22] MEDS: SODIUM CHLORIDE 0.9% INJ 10 ML SYR IV SCH (07:51)
[2019-03-22] MEDS ORDERED: POTASSIUM CHLORIDE 10 MEQ SR TABLET PO ONE (08:00)
--- NOTE | 2019-03-22 10:32 | IPNPDOC ---
Text Note Date of Service The patient was seen on 03/22/19. NOTE Subjective: Patient stated that she has a good appetite, no any acute events overnight. Patient has emotional flat affect, she answered question as yes or no. Patient denies fever, chills, nausea, vomiting, diarrhea or dysuria Objective: General Exam: Positive: Alert, Mild Distress, Other Eye Exam: Positive: PERRLA, Conjunctiva & lids normal ENT Exam: Positive: Atraumatic Neck Exam: Positive: Supple; Negative: JVD Chest Exam: Positive: Moderate wheezes bilaterally Heart Exam: Positive: Rate Normal Abdomen Exam: Positive: Normal bowel sounds Extremity Exam: Negative: Clubbing, Cyanosis, Edema, multiple ingrown yellow nails Neuro Exam: Positive: Strength at 5/5 X4 ext Patient is 63 years old female with past medical history of small cell lung carcinoma diagnosed in August 2016 in her right upper lobe, noncompliant to treatment and she lost follow-up, COPD, adrenal insufficiency, schizophrenia, chronic hypertension, polyarthritis, tobacco abuse, presented hospital with right sided chest pain after mechanical fall. Right-sided chest wall pain Secondary to acute fracture of right ribs 6 and 7 Incentive spirometry Continue to monitor Conservative treatment with pain management Encourage to ambulate Shortness of breath Patient has increased oxygen demand, 2 L via nasal cannula Most likely secondary to incomplete chest excursion due to broken ribs Incentive spirometry, Acapella Fracture of ribs, multiple Problem Text: See above Adrenal insufficiency/ adrenal crisis Patient developed hypotension most likely secondary to adrenal crisis due to adrenal insufficiency secondary to noncompliance to medications Patient received Levophed IV in the ICU Hydrocortisone IV started, I tapered down today hydrocortisone to 50 mg in 24 hours. I started by mouth hydrocortisone with fludrocortisone on 03/21/19 with taper Most likely patient was noncompliant patient by mouth hydrocortisone and fludrocortisone Hyponatremia Resolved Hyponatremia most likely secondary to poor oral intake, superimposed with adrenal insufficiency and small lung carcinoma urinalysis osmolarity, serum osmolarity, urine lites pending Leukocytosis Patient is afebrile, did not have acute infiltrates on the chest CT scan, abdomen and pelvis CT unremarkable. Patient does not sputum production. Today patient elevated leukocytes most likely secondary to steroids I will hold antibiotics for now, no obvious source of infection COPD (chronic obstructive pulmonary disease) Problem Text: Patient has wheezes on exam secondary to COPD exacerbation Inhalers, incentive spirometry I changed Duoneb to around the clock q3 Diabetes mellitus Glucose levels under control Problem Text: Diabetes diet insulin sliding scale Small cell lung cancer, right upper lobe Problem Text: Follow-up with Dr. Banuelos Physical deconditioning Problem Text: PT/OT evaluation Palliative care consult Onychomycosis/ ingrown nails Follow-up with filter operator in the outpatient settings VS,Fishbone, I+O VS, Fishbone, I+O Laboratory Tests 03/22/19 05:03 Red Blood Count 4.42, Mean Corpuscular Volume 91.6, Mean Corpuscular Hemoglobin 31.2, Mean Corpuscular Hemoglobin Concent 34.1, Red Cell Distribution Width 12.4, Calcium Level 7.8 L Vital Signs Date Time Temp Pulse Resp B/P (MAP) Pulse Ox O2 Delivery O2 Flow Rate FiO2 03/22/19 08:00 97.6 92 18 80/51 (61) 92 2.0 03/20/19 18:00 92 03/19/19 11:20 Nasal Cannula I&O- Last 24 Hours up to 6 AM 03/22/19 06:00 Intake Total 2380 ml Output Total 1200 ml Balance 1180 ml MARIA DE JESUS COSTA DO Mar 22, 2019 10:32
[2019-03-22] MEDS: IPRATROPIUM 0.5MG/ALBUTEROL 2.5MG INH SOL UD 3ML (DUONEB)(J7620) NEB SCH ×5 (11:05→23:47)
[2019-03-23] MEDS: IPRATROPIUM 0.5MG/ALBUTEROL 2.5MG INH SOL UD 3ML (DUONEB)(J7620) NEB SCH ×8 (02:00→23:19)
[2019-03-23 04:00] VITALS: BP 114/68
[2019-03-23] MEDS: SLF 3 ML SYR IV SCH ×3 (05:37→20:39)
[2019-03-23 05:41] LABS: HEMATOCRIT 41.2 % (36.0-47.0); HEMOGLOBIN 14.1 g/dl (12.0-15.5); MEAN CORPUSCULAR HEMOGLOBIN 31.7 pg (27.0-33.0); MEAN CORPUSCULAR HGB CONC 34.2 g/dl (32.0-36.5); MEAN CORPUSCULAR VOLUME 92.6 fl (80.0-96.0); PLATELET COUNT, AUTOMATED 216 10^3/uL (150-450); RED BLOOD COUNT 4.45 10^6/uL (4.00-5.40); WHITE BLOOD COUNT 18.7 10^3/uL (4.0-10.0)
[2019-03-23 05:58] LABS: BLOOD UREA NITROGEN 8 MG/DL (7-18); CARBON DIOXIDE LEVEL 32 MEQ/L (21-32); CHLORIDE LEVEL 94 MEQ/L (98-107); CREATININE FOR GFR 0.37 MG/DL (0.55-1.30); GLOMERULAR FILTRATION RATE > 60.0 (>45); GLUCOSE, FASTING 82 MG/DL (70-100); POTASSIUM SERUM 3.5 MEQ/L (3.5-5.1); SODIUM LEVEL 132 MEQ/L (136-145)
[2019-03-23] MEDS ORDERED: POTASSIUM CHLORIDE 10 MEQ SR TABLET PO ONE (07:00)
[2019-03-23] MEDS: LevoFLOXacin 750 MG TABLET PO SCH (07:14)
[2019-03-23] MEDS: SYMBICORT 80/4.5MCG INHALER 6GM INH SCH ×2 (07:19→19:55)
[2019-03-23] MEDS: HumaLOG INSULIN (NovoLOG) PER UNIT SC SCH ×3 (07:30→17:53)
[2019-03-23 08:00] VITALS: BP 74/44
[2019-03-23] MEDS: SODIUM CHLORIDE 0.9% INJ 10 ML SYR IV SCH (08:35)
[2019-03-23] MEDS: ASPIRIN 81 MG ENTERIC TAB PO SCH (08:36)
[2019-03-23] MEDS: HYDROCORTISONE 10 MG TAB PO SCH ×2 (08:36→17:53)
[2019-03-23] MEDS: CitaloPRAM (CeleXA) 10 MG TABLET PO SCH (08:36)
[2019-03-23] MEDS: MAGNESIUM CHLORIDE 64 MG TABCR (SLO MAG) PO SCH (08:36)
[2019-03-23] MEDS: FLUDROCORTISONE ACETATE 0.1 MG TAB PO SCH (08:37)
[2019-03-23] MEDS: ATORVASTATIN 20 MG TAB PO SCH (08:37)
[2019-03-23] MEDS: CLOPIDOGREL 75 MG TAB PO SCH (08:37)
[2019-03-23] MEDS: FOLIC ACID 1 MG TAB PO SCH (08:37)
[2019-03-23] MEDS: MULTIVITAMINS/MINERALS THERAP 1 TAB PO SCH (08:37)
[2019-03-23] MEDS: HEPARIN SOD (PORCINE) 5000 UNITS/ML VIAL SC SCH ×2 (08:38→20:39)
[2019-03-23 08:55] VITALS: BP 90/57
--- NOTE | 2019-03-23 10:07 | REP ---
Portable chest, 09:33 a.m., single AP view with the patient sitting: Comparisons are the portable chest 03/19/[address] of 03/19/2019. There are nondisplaced fractures laterally in the right sixth and seventh ribs. These were obscured on the comparison portable chest, but are identified on the comparison chest CT. There is no pneumothorax or hemothorax. Focal increased density medially in the right upper lobe is again identified. This corresponds to chronic parenchymal scarring on the comparison CT. The increased density medially in the left upper lobe has resolved. Left lung is otherwise clear. Cardiac size is normal. The mauri and mediastinum are unremarkable. There is a left subclavian central venous [id number] with the tip in the superior vena cava, unchanged. Impression: No acute cardiopulmonary findings. Chronic scarring medially in the right upper lobe. Nondisplaced fractures of the right sixth and seventh ribs laterally. No pneumothorax or hemothorax or pulmonary contusion. Electronically Signed by Loagn Bishop MD 03/23/2019 09:58 A
--- NOTE | 2019-03-23 10:55 | IPNPDOC ---
Text Note Date of Service The patient was seen on 03/23/19. NOTE Subjective: Patient stated that she has a good appetite, her oxygenation was 100% on 2 L of room air. Patient complains of increased cough, no sputum production Patient denies fever, chills, nausea, vomiting, diarrhea or dysuria Objective: General Exam: Positive: Alert, Mild Distress, Other Eye Exam: Positive: PERRLA, Conjunctiva & lids normal ENT Exam: Positive: Atraumatic Neck Exam: Positive: Supple; Negative: JVD Chest Exam: Positive: Moderate wheezes bilaterally Heart Exam: Positive: Rate Normal Abdomen Exam: Positive: Normal bowel sounds Extremity Exam: Negative: Clubbing, Cyanosis, Edema, multiple ingrown yellow nails Neuro Exam: Positive: Strength at 5/5 X4 ext Patient is 63 years old female with past medical history of small cell lung carcinoma diagnosed in August 2016 in her right upper lobe, noncompliant to treatment and she lost follow-up, COPD, adrenal insufficiency, schizophrenia, chronic hypertension, polyarthritis, tobacco abuse, presented hospital with right sided chest pain after mechanical fall. Right-sided chest wall pain Secondary to acute fracture of right ribs 6 and 7 Incentive spirometry Continue to monitor Conservative treatment with pain management Encourage to ambulate Out of bed order Shortness of breath Improved Titrate down oxygen to 1 L Most likely secondary to incomplete chest excursion due to broken ribs Incentive spirometry, Acapella Fracture of ribs, multiple Problem Text: See above Adrenal insufficiency/ adrenal crisis Blood pressure stable today Patient developed hypotension most likely secondary to adrenal crisis due to adrenal insufficiency secondary to noncompliance to medications Patient received Levophed IV in the ICU Hydrocortisone IV started, I tapered down today hydrocortisone to 50 mg in 24 hours. I started by mouth hydrocortisone with fludrocortisone on 03/21/19 with taper Most likely patient was noncompliant patient by mouth hydrocortisone and fludrocortisone Hyponatremia Resolved Hyponatremia was most likely multifactorial and secondary to poor oral intake, superimposed with adrenal insufficiency and small lung carcinoma Leukocytosis Patient is afebrile, did not have acute infiltrates on the chest CT scan, abdomen and pelvis CT unremarkable. Today she has increased cough Leukocytes count elevated to 18 Patient is in the high risk of pneumonia, I added levofloxacin COPD (chronic obstructive pulmonary disease) Problem Text: Patient has wheezes on exam secondary to COPD exacerbation Inhalers, incentive spirometry I changed Duoneb to around the clock q3 Diabetes mellitus Glucose levels under control Problem Text: Diabetes diet insulin sliding scale Small cell lung cancer, right upper lobe Problem Text: Follow-up with Dr. Banuelos Electrolytes imbalance Replaced magnesium, potassium Physical deconditioning Problem Text: PT/OT evaluation Onychomycosis/ ingrown nails Follow-up with rug layer in the outpatient settings Palliative care consult Patient declined palliative care VS,Fishbone, I+O VS, Fishbone, I+O Laboratory Tests 03/23/19 05:04 Red Blood Count 4.45, Mean Corpuscular Volume 92.6, Mean Corpuscular Hemoglobin 31.7, Mean Corpuscular Hemoglobin Concent 34.2, Red Cell Distribution Width 12.6, Calcium Level 8.0 L Vital Signs Date Time Temp Pulse Resp B/P (MAP) Pulse Ox O2 Delivery O2 Flow Rate FiO2 03/23/19 08:55 90/57 (68) 90 03/23/19 08:00 97.9 102 16 03/23/19 04:00 2.0 03/20/19 18:00 92 03/19/19 11:20 Nasal Cannula I&O- Last 24 Hours up to 6 AM 03/23/19 06:00 Intake Total 1320 ml Output Total 350 ml Balance 970 ml MARIA DE JESUS COSTA DO Mar 23, 2019 10:55
[2019-03-23 12:00] VITALS: BP 87/60
[2019-03-23 16:00] VITALS: BP 83/53
[2019-03-23 20:00] VITALS: BP 126/62
[2019-03-24] VITALS: BP 100/58
[2019-03-24] MEDS: IPRATROPIUM 0.5MG/ALBUTEROL 2.5MG INH SOL UD 3ML (DUONEB)(J7620) NEB SCH ×5 (03:08→20:00)
[2019-03-24 04:00] VITALS: BP 101/59
[2019-03-24 05:44] LABS: HEMATOCRIT 40.3 % (36.0-47.0); HEMOGLOBIN 13.9 g/dl (12.0-15.5); MEAN CORPUSCULAR HEMOGLOBIN 31.3 pg (27.0-33.0); MEAN CORPUSCULAR HGB CONC 34.5 g/dl (32.0-36.5); MEAN CORPUSCULAR VOLUME 90.8 fl (80.0-96.0); PLATELET COUNT, AUTOMATED 202 10^3/uL (150-450); RED BLOOD COUNT 4.44 10^6/uL (4.00-5.40); WHITE BLOOD COUNT 16.7 10^3/uL (4.0-10.0)
[2019-03-24 06:03] LABS: BLOOD UREA NITROGEN 11 MG/DL (7-18); CALCIUM LEVEL 8.1 MG/DL (8.8-10.2); CARBON DIOXIDE LEVEL 32 MEQ/L (21-32); CHLORIDE LEVEL 94 MEQ/L (98-107); CREATININE FOR GFR 0.36 MG/DL (0.55-1.30); GLOMERULAR FILTRATION RATE > 60.0 (>45); GLUCOSE, FASTING 102 MG/DL (70-100); MAGNESIUM LEVEL 1.7 MG/DL (1.8-2.4); POTASSIUM SERUM 3.2 MEQ/L (3.5-5.1); SODIUM LEVEL 133 MEQ/L (136-145)
[2019-03-24] MEDS: SLF 3 ML SYR IV SCH ×3 (06:13→22:00)
[2019-03-24] MEDS: LevoFLOXacin 750 MG TABLET PO SCH (06:23)
[2019-03-24] MEDS ORDERED: POTASSIUM CHLORIDE 10 MEQ SR TABLET PO ONE (07:00)
[2019-03-24] MEDS: SYMBICORT 80/4.5MCG INHALER 6GM INH SCH ×2 (07:27→20:27)
[2019-03-24 08:00] VITALS: BP 118/76
[2019-03-24] MEDS: CitaloPRAM (CeleXA) 10 MG TABLET PO SCH (08:09)
[2019-03-24] MEDS: MAGNESIUM CHLORIDE 64 MG TABCR (SLO MAG) PO SCH (08:10)
[2019-03-24] MEDS: MULTIVITAMINS/MINERALS THERAP 1 TAB PO SCH (08:10)
[2019-03-24] MEDS: CLOPIDOGREL 75 MG TAB PO SCH (08:10)
[2019-03-24] MEDS: FOLIC ACID 1 MG TAB PO SCH (08:11)
[2019-03-24] MEDS: ATORVASTATIN 20 MG TAB PO SCH (08:11)
[2019-03-24] MEDS: FLUDROCORTISONE ACETATE 0.1 MG TAB PO SCH (08:11)
[2019-03-24] MEDS: HYDROCORTISONE 10 MG TAB PO SCH ×2 (08:11→18:16)
[2019-03-24] MEDS: ASPIRIN 81 MG ENTERIC TAB PO SCH (08:21)
[2019-03-24] MEDS: HumaLOG INSULIN (NovoLOG) PER UNIT SC SCH ×3 (08:22→18:15)
[2019-03-24] MEDS: HEPARIN SOD (PORCINE) 5000 UNITS/ML VIAL SC SCH ×2 (08:22→20:23)
[2019-03-24] MEDS: SODIUM CHLORIDE 0.9% INJ 10 ML SYR IV SCH (08:23)
[2019-03-24 12:00] VITALS: BP 82/58
--- NOTE | 2019-03-24 13:01 | IPNPDOC ---
Text Note Date of Service The patient was seen on 03/24/19. NOTE Subjective: During walking test patient oxygenation was 92%, after walking test oxygenation drop to 88%. Patient denies fever, chills, nausea, vomiting, diarrhea or dysuria Objective: General Exam: Positive: Alert, Mild Distress, Other Eye Exam: Positive: PERRLA, Conjunctiva & lids normal ENT Exam: Positive: Atraumatic Neck Exam: Positive: Supple; Negative: JVD Chest Exam: Positive: Diminished lung sounds bilaterally Heart Exam: Positive: Rate Normal Abdomen Exam: Positive: Normal bowel sounds Extremity Exam: Negative: Clubbing, Cyanosis, Edema, multiple ingrown yellow nails Neuro Exam: Positive: Strength at 5/5 X4 ext Patient is 63 years old female with past medical history of small cell lung carcinoma diagnosed in August 2016 in her right upper lobe, noncompliant to treatment and she lost follow-up, COPD, adrenal insufficiency, schizophrenia, chronic hypertension, polyarthritis, tobacco abuse, presented hospital with right sided chest pain after mechanical fall. Right-sided chest wall pain Secondary to acute fracture of right ribs 6 and 7 Incentive spirometry Continue to monitor Conservative treatment with pain management Encourage to ambulate Out of bed order Shortness of breath Improved Continue oxygen 1 L via nasal cannula Most likely secondary to incomplete chest excursion due to broken ribs Incentive spirometry, Acapella Fracture of ribs, multiple Problem Text: See above Adrenal insufficiency/ adrenal crisis Blood pressure stable today Patient developed hypotension most likely secondary to adrenal crisis due to adrenal insufficiency secondary to noncompliance to medications Patient received Levophed IV in the ICU Hydrocortisone IV started, I tapered down hydrocortisone to 50 mg in 24 hours. I started by mouth hydrocortisone with fludrocortisone on 03/21/19 with taper Most likely patient was noncompliant patient by mouth hydrocortisone and fludrocortisone. During daytime patient continues to have low blood pressure of 85/45 intermittently. I increase her dose of hydrocortisone to 60 mg in the morning Hyponatremia Resolved Hyponatremia was most likely multifactorial and secondary to poor oral intake, superimposed with adrenal insufficiency and small lung carcinoma Leukocytosis Improved Patient is afebrile, did not have acute infiltrates on the chest CT scan, abdomen and pelvis CT unremarkable. She had increased cough on 03/23/19 Patient is in the high risk of pneumonia, I added levofloxacin COPD (chronic obstructive pulmonary disease) Problem Text: Patient has wheezes on exam secondary to COPD exacerbation Inhalers, incentive spirometry I changed Duoneb to around the clock q4 Diabetes mellitus Glucose levels under control Problem Text: Diabetes diet insulin sliding scale Small cell lung cancer, right upper lobe Problem Text: Follow-up with Dr. Banuelos Electrolytes imbalance Replaced magnesium, potassium Physical deconditioning Problem Text: PT/OT evaluation Onychomycosis/ ingrown nails Follow-up with cook barbecue in the outpatient settings Palliative care consult Patient declined palliative care VS,Lisa, I+O VS, Lisa, I+O Laboratory Tests 03/24/19 05:27 Red Blood Count 4.44, Mean Corpuscular Volume 90.8, Mean Corpuscular Hemoglobin 31.3, Mean Corpuscular Hemoglobin Concent 34.5, Red Cell Distribution Width 13.0, Calcium Level 8.1 L Vital Signs Date Time Temp Pulse Resp B/P (MAP) Pulse Ox O2 Delivery O2 Flow Rate FiO2 03/24/19 12:00 97.7 104 20 82/58 (66) 89 03/24/19 04:00 1.0 03/20/19 18:00 92 03/19/19 11:20 Nasal Cannula I&O- Last 24 Hours up to 6 AM 03/24/19 06:00 Intake Total 2960 ml Output Total 200 ml Balance 2760 ml MARIA DE JESUS COSTA DO Mar 24, 2019 13:01
[2019-03-24 16:00] VITALS: BP 99/64
[2019-03-24 20:00] VITALS: BP 104/55
[2019-03-25] VITALS (8 sets, daily range): BP systolic 88–129; BP diastolic 56–70
[2019-03-25] MEDS: IPRATROPIUM 0.5MG/ALBUTEROL 2.5MG INH SOL UD 3ML (DUONEB)(J7620) NEB SCH ×7 (00:11→23:47)
[2019-03-25 05:37] LABS: HEMATOCRIT 41.7 % (36.0-47.0); HEMOGLOBIN 14.3 g/dl (12.0-15.5); MEAN CORPUSCULAR HEMOGLOBIN 31.5 pg (27.0-33.0); MEAN CORPUSCULAR HGB CONC 34.3 g/dl (32.0-36.5); MEAN CORPUSCULAR VOLUME 91.9 fl (80.0-96.0); PLATELET COUNT, AUTOMATED 229 10^3/uL (150-450); RED BLOOD COUNT 4.54 10^6/uL (4.00-5.40); WHITE BLOOD COUNT 17.6 10^3/uL (4.0-10.0)
[2019-03-25 05:57] LABS: BLOOD UREA NITROGEN 21 MG/DL (7-18); CARBON DIOXIDE LEVEL 33 MEQ/L (21-32); CHLORIDE LEVEL 97 MEQ/L (98-107); CREATININE FOR GFR 0.54 MG/DL (0.55-1.30); GLOMERULAR FILTRATION RATE > 60.0 (>45); GLUCOSE, FASTING 86 MG/DL (70-100); MAGNESIUM LEVEL 1.7 MG/DL (1.8-2.4); POTASSIUM SERUM 3.5 MEQ/L (3.5-5.1); SODIUM LEVEL 135 MEQ/L (136-145)
[2019-03-25] MEDS: LevoFLOXacin 750 MG TABLET PO SCH (06:24)
[2019-03-25] MEDS: SLF 3 ML SYR IV SCH ×3 (06:24→20:29)
[2019-03-25] MEDS: SYMBICORT 80/4.5MCG INHALER 6GM INH SCH ×2 (07:21→20:25)
[2019-03-25] MEDS: HumaLOG INSULIN (NovoLOG) PER UNIT SC SCH ×3 (07:30→17:12)
[2019-03-25] MEDS: MAGNESIUM CHLORIDE 64 MG TABCR (SLO MAG) PO SCH ×4 (09:00→20:28)
[2019-03-25] MEDS: ASPIRIN 81 MG ENTERIC TAB PO SCH (09:01)
[2019-03-25] MEDS: CLOPIDOGREL 75 MG TAB PO SCH (09:02)
[2019-03-25] MEDS: FOLIC ACID 1 MG TAB PO SCH (09:02)
[2019-03-25] MEDS: CitaloPRAM (CeleXA) 10 MG TABLET PO SCH (09:02)
[2019-03-25] MEDS: HYDROCORTISONE 10 MG TAB PO SCH ×2 (09:02→17:11)
[2019-03-25] MEDS: ATORVASTATIN 20 MG TAB PO SCH (09:02)
[2019-03-25] MEDS: MULTIVITAMINS/MINERALS THERAP 1 TAB PO SCH (09:03)
[2019-03-25] MEDS: HEPARIN SOD (PORCINE) 5000 UNITS/ML VIAL SC SCH ×2 (09:03→20:28)
[2019-03-25] MEDS: FLUDROCORTISONE ACETATE 0.1 MG TAB PO SCH (09:03)
[2019-03-25] MEDS: SODIUM CHLORIDE 0.9% INJ 10 ML SYR IV SCH (09:04)
--- NOTE | 2019-03-25 12:50 | IPNPDOC ---
Text Note Date of Service The patient was seen on 03/25/19. NOTE Subjective: During walking test patient oxygenation was 89%, but patient was unsteady. Patient denies fever, chills, nausea, vomiting, diarrhea Objective: General Exam: Positive: Alert, Mild Distress, Other Eye Exam: Positive: PERRLA, Conjunctiva & lids normal ENT Exam: Positive: Atraumatic Neck Exam: Positive: Supple; Negative: JVD Chest Exam: Positive: Diminished lung sounds bilaterally Heart Exam: Positive: Rate Normal Abdomen Exam: Positive: Normal bowel sounds Extremity Exam: Negative: Clubbing, Cyanosis, Edema, multiple ingrown yellow nails Neuro Exam: Positive: Strength at 5/5 X4 ext Patient is 63 years old female with past medical history of small cell lung carcinoma diagnosed in August 2016 in her right upper lobe, noncompliant to treatment and she lost follow-up, COPD, adrenal insufficiency, schizophrenia, chronic hypertension, polyarthritis, tobacco abuse, presented hospital with right sided chest pain after mechanical fall. Right-sided chest wall pain Secondary to acute fracture of right ribs 6 and 7 Incentive spirometry Continue to monitor Conservative treatment with pain management Encourage to ambulate Out of bed order Shortness of breath Improved Continue oxygen 1 L via nasal cannula Most likely secondary to incomplete chest excursion due to broken ribs Incentive spirometry, Acapella Fracture of ribs, multiple Problem Text: See above Adrenal insufficiency/ adrenal crisis Blood pressure stable today Patient developed hypotension most likely secondary to adrenal crisis due to adrenal insufficiency secondary to noncompliance to medications Patient received Levophed IV in the ICU Hydrocortisone IV started, I tapered down hydrocortisone to 50 mg in 24 hours. I started by mouth hydrocortisone with fludrocortisone on 03/21/19 with taper Most likely patient was noncompliant patient by mouth hydrocortisone and fludrocortisone. During daytime patient continues to have low blood pressure of 85/45 intermittently. I increase her dose of hydrocortisone to 60 mg in the morning I added midodrine Hyponatremia Resolved Hyponatremia was most likely multifactorial and secondary to poor oral intake, superimposed with adrenal insufficiency and small lung carcinoma Leukocytosis Improved Patient is afebrile, did not have acute infiltrates on the chest CT scan, abdomen and pelvis CT unremarkable. She had increased cough on 03/23/19 Patient is in the high risk of pneumonia, I added levofloxacin COPD (chronic obstructive pulmonary disease) Problem Text: Patient has wheezes on exam secondary to COPD exacerbation Inhalers, incentive spirometry I changed Duoneb to around the clock q4 Diabetes mellitus Glucose levels under control Problem Text: Diabetes diet insulin sliding scale Small cell lung cancer, right upper lobe Problem Text: Follow-up with Dr. Banuelos Electrolytes imbalance Replaced magnesium, potassium Physical deconditioning Problem Text: PT/OT evaluation Physical therapist recommended another of PT , rolling walker on discharge Cognitive speech evaluation Onychomycosis/ ingrown nails Follow-up with comb setter in the outpatient settings Palliative care consult Patient declined palliative care VS,Nancye, I+O VS, Fishbone, I+O Laboratory Tests 03/25/19 05:17 Red Blood Count 4.54, Mean Corpuscular Volume 91.9, Mean Corpuscular Hemoglobin 31.5, Mean Corpuscular Hemoglobin Concent 34.3, Red Cell Distribution Width 13.2, Calcium Level 8.0 L Vital Signs Date Time Temp Pulse Resp B/P (MAP) Pulse Ox O2 Delivery O2 Flow Rate FiO2 03/25/19 12:00 97.2 95 18 100/64 (76) 90 03/24/19 04:00 1.0 03/20/19 18:00 92 03/19/19 11:20 Nasal Cannula I&O- Last 24 Hours up to 6 AM 03/25/19 06:00 Intake Total 1590 ml Output Total 550 ml Balance 1040 ml MARIA DE JESUS COSTA DO Mar 25, 2019 12:50
[2019-03-25] MEDS: MIDODRINE 2.5 MG TAB PO SCH ×2 (13:32→17:12)
[2019-03-25] MEDS ORDERED: POTASSIUM CHLORIDE 10 MEQ SR TABLET PO ONE (14:00)
[2019-03-26] VITALS: BP 96/54
[2019-03-26] MEDS: IPRATROPIUM 0.5MG/ALBUTEROL 2.5MG INH SOL UD 3ML (DUONEB)(J7620) NEB SCH ×4 (03:51→15:22)
[2019-03-26] MEDS: LevoFLOXacin 750 MG TABLET PO SCH (06:00)
[2019-03-26] MEDS: SLF 3 ML SYR IV SCH ×2 (06:01→13:00)
[2019-03-26 06:07] LABS: HEMATOCRIT 39.4 % (36.0-47.0); HEMOGLOBIN 13.5 g/dl (12.0-15.5); MEAN CORPUSCULAR HEMOGLOBIN 31.2 pg (27.0-33.0); MEAN CORPUSCULAR HGB CONC 34.3 g/dl (32.0-36.5); PLATELET COUNT, AUTOMATED 247 10^3/uL (150-450); RED BLOOD COUNT 4.33 10^6/uL (4.00-5.40); WHITE BLOOD COUNT 17.9 10^3/uL (4.0-10.0)
[2019-03-26 06:22] LABS: BLOOD UREA NITROGEN 17 MG/DL (7-18); CALCIUM LEVEL 8.1 MG/DL (8.8-10.2); CARBON DIOXIDE LEVEL 33 MEQ/L (21-32); CHLORIDE LEVEL 94 MEQ/L (98-107); CREATININE FOR GFR 0.45 MG/DL (0.55-1.30); GLOMERULAR FILTRATION RATE > 60.0 (>45); GLUCOSE, FASTING 94 MG/DL (70-100); MAGNESIUM LEVEL 2.1 MG/DL (1.8-2.4); POTASSIUM SERUM 3.4 MEQ/L (3.5-5.1); SODIUM LEVEL 132 MEQ/L (136-145)
[2019-03-26] MEDS ORDERED: POTASSIUM CHLORIDE 10 MEQ SR TABLET PO ONE (07:00)
[2019-03-26] MEDS: SYMBICORT 80/4.5MCG INHALER 6GM INH SCH (07:14)
[2019-03-26] MEDS: HumaLOG INSULIN (NovoLOG) PER UNIT SC SCH ×2 (07:30→13:00)
[2019-03-26 08:00] VITALS: BP 122/74
[2019-03-26] MEDS: ASPIRIN 81 MG ENTERIC TAB PO SCH (08:35)
[2019-03-26] MEDS: MIDODRINE 2.5 MG TAB PO SCH ×3 (08:35→15:46)
[2019-03-26] MEDS: FLUDROCORTISONE ACETATE 0.1 MG TAB PO SCH (08:36)
[2019-03-26] MEDS: CLOPIDOGREL 75 MG TAB PO SCH (08:36)
[2019-03-26] MEDS: ATORVASTATIN 20 MG TAB PO SCH (08:36)
[2019-03-26] MEDS: FOLIC ACID 1 MG TAB PO SCH (08:36)
[2019-03-26] MEDS: MULTIVITAMINS/MINERALS THERAP 1 TAB PO SCH (08:36)
[2019-03-26] MEDS: CitaloPRAM (CeleXA) 10 MG TABLET PO SCH (08:36)
[2019-03-26] MEDS: MAGNESIUM CHLORIDE 64 MG TABCR (SLO MAG) PO SCH ×2 (08:37→15:46)
[2019-03-26] MEDS: HEPARIN SOD (PORCINE) 5000 UNITS/ML VIAL SC SCH (08:38)
[2019-03-26] MEDS: SODIUM CHLORIDE 0.9% INJ 10 ML SYR IV SCH (08:38)
[2019-03-26] MEDS: HYDROCORTISONE 10 MG TAB PO SCH (08:53)
[2019-03-26] MEDS ORDERED: MAGN64TASA PO (10:35)
[2019-03-26] MEDS ORDERED: LEVA750T7 PO (10:35)
[2019-03-26] MEDS ORDERED: CORT10TA PO ×2 (10:35)
[2019-03-26] MEDS ORDERED: FLUD0.1T PO (10:35)
[2019-03-26] MEDS ORDERED: MIDO2.5T PO (10:35)
[2019-03-26] MEDS ORDERED: ATOR1TAB21 PO (10:35)
--- NOTE | 2019-03-26 15:21 | DS.PDOC ---
Discharge Summary General Date of Admission Mar 19, 2019 at 10:09 Date of Discharge 03/26/19 Primary Care Physician: THAI SMART DO Attending Physician: MARIA DE JESUS COSTA DO Discharge Summary PROCEDURES PERFORMED DURING STAY: None ADMITTING DIAGNOSES: Right-sided chest wall pain Fracture of ribs, multiple Adrenal insufficiency/ renal crisis Hyponatremia Leukocytosis Diabetes mellitus COPD (chronic obstructive pulmonary disease) Small cell lung cancer, right upper lobe Physical deconditioning DISCHARGE DIAGNOSES: Right-sided chest wall pain Fracture of ribs, multiple Adrenal insufficiency/ renal crisis Hyponatremia Leukocytosis Diabetes mellitus COPD (chronic obstructive pulmonary disease) Small cell lung cancer, right upper lobe Physical deconditioning COMPLICATIONS/CHIEF COMPLAINT: Adrenal Insufficiency. HISTORY OF PRESENT ILLNESS: Patient is 63 years old female with past medical history of small cell lung carcinoma diagnosed in August 2016 in her right upper lobe, noncompliant to treatment and she lost follow-up, COPD, adrenal insufficiency, schizophrenia, chronic hypertension, polyarthritis, tobacco abuse, presented hospital with right sided chest pain after mechanical fall. Patient stated that yesterday she fell because she lost her balance. In emergency room patient was found to have low blood pressure around 80/40, white blood count of 17, lactic acid of 3. CT scan of the pelvis and abdomen was unremarkable, CT chest showed no pulmonary emboli, no acute infiltrates, positive for acute broken ribs: 6, 7 nondisplaced. In emergency room patient received fluid resuscitation, hydrocortisone 100 mg IV, Levophed drip HOSPITAL COURSE: During hospital stay following issue addressed Right-sided chest wall pain Secondary to acute fracture of right ribs 6 and 7 Incentive spirometry Continue to monitor Conservative treatment with pain management Encourage to ambulate Out of bed order Shortness of breath Improved Continue oxygen 1 L via nasal cannula Most likely secondary to incomplete chest excursion due to broken ribs Incentive spirometry, Acapella Fracture of ribs, multiple Problem Text: See above Adrenal insufficiency/ adrenal crisis Blood pressure has been stabilized Patient developed hypotension most likely secondary to adrenal crisis due to adrenal insufficiency secondary to noncompliance to medications Patient received Levophed IV in the ICU Hydrocortisone IV started, I tapered down hydrocortisone to 50 mg in 24 hours. I started by mouth hydrocortisone with fludrocortisone on 03/21/19 with taper Most likely patient was noncompliant patient by mouth hydrocortisone and fludrocortisone. During daytime patient continues to have low blood pressure of 85/45 intermittently. I increase her dose of hydrocortisone to 60 mg in the morning and 20 mg in the evening I added midodrine Hyponatremia Resolved Hyponatremia was most likely multifactorial and secondary to poor oral intake, superimposed with adrenal insufficiency and small lung carcinoma Leukocytosis Improved Patient is afebrile, did not have acute infiltrates on the chest CT scan, abdomen and pelvis CT unremarkable. She had increased cough on 03/23/19 Patient is in the high risk of pneumonia, I added levofloxacin COPD (chronic obstructive pulmonary disease) Problem Text: Patient has wheezes on exam secondary to COPD exacerbation She received Inhalers, incentive spirometry Diabetes mellitus Glucose levels under control Problem Text: Diabetes diet insulin sliding scale Small cell lung cancer, right upper lobe Problem Text: Follow-up with Dr. Banuelos Electrolytes imbalance Replaced magnesium, potassium Physical deconditioning Problem Text: PT/OT evaluation Physical therapist recommended another of PT , rolling walker on discharge Onychomycosis/ ingrown nails Follow-up with photo print specialist in the outpatient settings Palliative care consult Patient declined palliative care DISCHARGE MEDICATIONS: Please see below. ALLERGIES: Please see below. PHYSICAL EXAMINATION ON DISCHARGE: VITAL SIGNS: Please see below. General Exam: Positive: Alert, Mild Distress, Other Eye Exam: Positive: PERRLA, Conjunctiva & lids normal ENT Exam: Positive: Atraumatic Neck Exam: Positive: Supple; Negative: JVD Chest Exam: Positive: Diminished lung sounds bilaterally Heart Exam: Positive: Rate Normal Abdomen Exam: Positive: Normal bowel sounds Extremity Exam: Negative: Clubbing, Cyanosis, Edema, multiple ingrown yellow nails LABORATORY DATA: Please see below. IMAGING: CT ANGIOGRAM CHEST: TECHNIQUE: Axial contrast enhanced images from the thoracic inlet to the upper abdomen using 100 mL Isovue 370 intravenous contrast material with multiplanar reformations. There are nondisplaced fractures of the lateral right 6th and 7th ribs. These are acute, new when compared to prior study of 01/12/2019. Irregular band of density in the right upper lobe is stable with scattered interstitial opacities also stable. No new parenchymal opacities are seen. There is no evidence of thoracic aortic aneurysm or dissection with moderate atherosclerotic plaquing diffusely. Heart is not enlarged. No significant adenopathy is seen in the chest wall, mediastinum or hilar regions with no change in the appearance of these areas compared to 01/12/2019 exam. There are degenerative changes of the spine. IMPRESSION: Acute nondisplaced fractures of the lateral right 6th and 7th ribs. No other acute changes when compared to the prior study 01/12/2019. There is no pneumothorax, pleural effusion, or acute infiltrate. PROGNOSIS: Guarded ACTIVITY: As tolerated, use walker DIET: Cardiac DISCHARGE PLAN: Follow-up with PCP and oncologist DISPOSITION: . Home with home health DISCHARGE INSTRUCTIONS: Take prescribed medication ITEMS TO FOLLOWUP ON ON OUTPATIENT: 1. Use walker DISCHARGE CONDITION: Stable TIME SPENT ON DISCHARGE: Greater than 40 minutes. Vital Signs/I&Os Vital Signs Date Time Temp Pulse Resp B/P (MAP) Pulse Ox O2 Delivery O2 Flow Rate FiO2 03/26/19 08:00 98.4 112 18 122/74 (90) 91 03/24/19 04:00 1.0 03/20/19 18:00 92 I&O- Last 24 Hours up to 6 AM 03/26/19 05:59 Intake Total 3540 ml Output Total 350 ml Balance 3190 ml Laboratory Data Labs 24H Laboratory Tests 2 03/25/19 17:01: Bedside Glucose (Misc Panel) 141H 03/26/19 05:17: Nucleated Red Blood Cells % (auto) 0.0, Anion Gap 5L, Glomerular Filtration Rate > 60.0, Blood Urea Nitrogen 17, Creatinine 0.45L, Sodium Level 132L, Potassium Level 3.4L, Chloride Level 94L, Carbon Dioxide Level 33H, Calcium Level 8.1L, Magnesium Level 2.1 CBC/BMP Laboratory Tests 03/26/19 05:17 Red Blood Count 4.33, Mean Corpuscular Volume 91.0, Mean Corpuscular Hemoglobin 31.2, Mean Corpuscular Hemoglobin Concent 34.3, Red Cell Distribution Width 12.9, Calcium Level 8.1 L FSBS Laboratory Tests Test 03/25/19 17:01 Range/Units Bedside Glucose (Misc Panel) 141 80-115 MG/DL Microbiology Microbiology 03/19/19 Respiratory Virus Panel (PCR) ([facility]) - Final, Complete 03/19/19 Blood Culture - Final, Complete NO GROWTH AFTER 5 DAYS 03/19/19 Blood Culture - Final, Complete NO GROWTH AFTER 5 DAYS Discharge Medications Scheduled Aspirin (Aspirin EC) 81 Mg Tablet.dr, 81 MG PO DAILY, (Reported) Atorvastatin Calcium (Atorvastatin Calcium) 20 Mg Tablet, 40 MG PO DAILY Budesonide (Pulmicort Flexhaler) 180 Mcg Aer.pow.ba, 1 PUFF INH BID, (Reported) Citalopram Hydrobromide (Celexa) 10 Mg Tablet, 10 MG PO DAILY, (Reported) Clopidogrel Bisulfate (Plavix) 75 Mg Tablet, 75 MG PO DAILY, (Reported) Fludrocortisone Acetate (Fludrocortisone Acetate) 0.1 Mg Tablet, 0.1 MG PO DAILY, (Reported) Fludrocortisone Acetate (Fludrocortisone Acetate) 0.1 Mg Tablet, 0.1 MG PO DAILY Take daily at 5 PM Folic Acid (Folic Acid) 1 Mg Tablet, 1 MG PO DAILY, (Reported) Hydrocortisone (Cortef) 10 Mg Tablet, 60 MG PO QAM Take daily at 8 AM Hydrocortisone (Cortef) 10 Mg Tablet, 20 MG PO DAILY@1800 Take daily at 6 PM Levofloxacin (Levaquin) 750 Mg Tablet, 750 MG PO DAILY@06 Magnesium Chloride (Mag64) 64 Mg Tablet.dr, 64 MG PO TID Metformin HCl (Metformin HCl ER) 500 Mg Tab.er.24h, 500 MG PO DAILY, (Reported) Midodrine HCl (Midodrine HCl) 2.5 Mg Tablet, 2.5 MG PO 08,12,16 Multivitamin (Multivitamins) 1 Each Tablet, 1 TAB PO DAILY, (Reported) Thiamine HCl (Thiamine HCl) 100 Mg Tablet, 100 MG PO DAILY, (Reported) Scheduled PRN Albuterol Sulfate (Ventolin Hfa) 18 Gm Hfa.aer.ad, 2 PUFF INH Q6H PRN for SHORTNESS OF BREATH, (Reported) Allergies Coded Allergies: No Known Allergies (Unverified , 03/19/19) MARIA DE JESUS COSTA DO Mar 26, 2019 15:21
[2019-03-26 16:00] VITALS: BP 88/58
[2019-03-27] MEDS ORDERED: MIDO2.5T PO (09:56)
[2019-03-27] MEDS ORDERED: HYDR20TA17 PO ×2 (09:56)
[2019-03-27] MEDS ORDERED: ATOR1TAB21 PO (09:56)
[2019-03-27] MEDS ORDERED: MAGN64TASA PO (09:56)
[2019-03-27] MEDS ORDERED: LEVA750T7 PO (09:56)
== END 2019-03-26 17:12 | disposition home health service (06) | DRG 135 ==
LOC: M ED 06:34 → M ED INP 10:09 → EEVIPCON 10:09 → M ICU 11:29 → M PCU 03-20 19:55
PROVIDERS: ADMIT Internal Medicine; ATTEND Internal Medicine
DX: S22.41XA Multiple fractures of ribs, right side, initial encounter for closed fracture (principal); I95.89 Other hypotension; E87.2 Acidosis; E46 Unspecified protein-calorie malnutrition; E27.2 Addisonian crisis; E87.1 Hypo-osmolality and hyponatremia; C34.11 Malignant neoplasm of upper lobe, right bronchus or lung; K76.0 Fatty (change of) liver, not elsewhere classified; J44.9 Chronic obstructive pulmonary disease, unspecified; E11.40 Type 2 diabetes mellitus with diabetic neuropathy, unspecified; F25.9 Schizoaffective disorder, unspecified; G62.0 Drug-induced polyneuropathy; R19.7 Diarrhea, unspecified; E87.6 Hypokalemia; E83.42 Hypomagnesemia; F10.10 Alcohol abuse, uncomplicated; M13.0 Polyarthritis, unspecified; I10 Essential (primary) hypertension; B35.1 Tinea unguium; F32.9 Major depressive disorder, single episode, unspecified; F17.200 Nicotine dependence, unspecified, uncomplicated; W19.XXXA Unspecified fall, initial encounter; Z79.82 Long term (current) use of aspirin; Z79.84 Long term (current) use of oral hypoglycemic drugs; Y92.9 Unspecified place or not applicable; Z79.899 Other long term (current) drug therapy; Z92.21 Personal history of antineoplastic chemotherapy; Z68.1 Body mass index [BMI] 19.9 or less, adult; R26.81 Unsteadiness on feet

== ENCOUNTER 2019-03-27 05:07 | Inpatient (IN) | payer OTHER ==
[~2019-03-27] VITALS: Ht 154.9 cm; Wt 40.9 kg
[~2019-03-27 05:07] MED LIST changes: +MAGN64TASA PO; +MIDO2.5T PO
[2019-03-27] MEDS ORDERED: BUPIVACAINE LIPOSOME/PF 1.3% 20ML VIAL (13.3MG/ML)(EXPAREL)(C9290 PER1MG) INFIL ONE (05:30)
[2019-03-27] MEDS ORDERED: dexameTHASONE 20 MG/5 ML VIAL (J1100) IV ONE (05:45)
[2019-03-27] MEDS ORDERED: NS 1,000 ML IV ONE (06:00)
[2019-03-27] MEDS ORDERED: NS 500 ML IV ONE ×2 (07:30→15:00)
[2019-03-27 07:51] LABS: HEMATOCRIT 44.3 % (36.0-47.0); MEAN CORPUSCULAR HEMOGLOBIN 32.7 pg (27.0-33.0); MEAN CORPUSCULAR HGB CONC 35.2 g/dl (32.0-36.5); MEAN CORPUSCULAR VOLUME 92.9 fl (80.0-96.0); PLATELET COUNT, AUTOMATED 274 10^3/uL (150-450); RED BLOOD COUNT 4.77 10^6/uL (4.00-5.40)
[2019-03-27 07:58] LABS: HEMOGLOBIN 15.6 g/dl (12.0-15.5)
[2019-03-27] MEDS ORDERED: HYDROCORTISONE 100 MG/2 ML VIAL (J1720) IV ONE (08:00)
[2019-03-27 08:07] LABS: ALBUMIN 2.9 GM/DL (3.2-5.2); ALT/SGPT 30 U/L (12-78); BILIRUBIN,TOTAL 0.8 MG/DL (0.2-1.0); BLOOD UREA NITROGEN 9 MG/DL (7-18); CALCIUM LEVEL 8.4 MG/DL (8.8-10.2); CARBON DIOXIDE LEVEL 33 MEQ/L (21-32); CHLORIDE LEVEL 91 MEQ/L (98-107); CK-MB VALUE MASS 1.8 NG/ML (<3.6); CPK CREATINE PHOSPHOKINASE 56 U/L (26-192); GLOMERULAR FILTRATION RATE > 60.0 (>45); GLUCOSE, FASTING 62 MG/DL (70-100); MB/CK RELATIVE INDEX 3.21 (< OR =4); POTASSIUM SERUM 3.4 MEQ/L (3.5-5.1); SODIUM LEVEL 131 MEQ/L (136-145); TROPONIN I < 0.02 NG/ML (< 0.10)
[2019-03-27 08:38] LABS: ATYPICAL LYMPH 5 % (0-5); BASOPHILS 1 % (0-1); LYMPHOCYTES 23 % (16-44); MONOCYTES 7 % (0-5); NEUTROPHILS 63 % (28-66); PLATELET ESTIMATE NORMAL (NORMAL)
[2019-03-27] MEDS: MAGNESIUM CHLORIDE 64 MG TABCR (SLO MAG) PO SCH ×3 (09:00→21:01)
[2019-03-27] MEDS: HEPARIN SOD (PORCINE) 5000 UNITS/ML VIAL SC SCH ×2 (09:00→21:01)
--- NOTE | 2019-03-27 09:43 | REP ---
Single view chest: 03/27/2019. Indication: Hypertension. Comparison: 03/23/2019. Findings: The lungs are clear save for minimal fibrosis/scarring of the medial right upper lobe. Stable. There is no pleural effusion or pneumothorax. Left-sided Port-A-Cath is unchanged in position. Right-sided rib fractures are redemonstrated and stable. Cardiac silhouette is not enlarged. Impression: No acute cardiopulmonary findings. Stable exam compared to 4 days earlier. Electronically Signed by Jamaal Gallagher DO 03/27/2019 09:34 A
[2019-03-27] MEDS ORDERED: ATOR1TAB21 PO (09:56)
[2019-03-27] MEDS ORDERED: MAGN64TASA PO (09:56)
[2019-03-27] MEDS ORDERED: HYDR20TA17 PO ×2 (09:56)
[2019-03-27] MEDS ORDERED: LEVA750T7 PO (09:56)
[2019-03-27] MEDS ORDERED: MIDO2.5T PO (09:56)
[2019-03-27] MEDS: PERCOCET 5MG/325MG TAB PO SCH ×2 (12:00→17:56)
[2019-03-27] MEDS: HumaLOG INSULIN (NovoLOG) PER UNIT SC SCH ×3 (12:00→20:55)
[2019-03-27] MEDS ORDERED: MIDODRINE 2.5 MG TAB PO SCH ×2 (12:00→16:00)
[2019-03-27] MEDS ORDERED: IPRATROPIUM 0.5MG/ALBUTEROL 2.5MG INH SOL UD 3ML (DUONEB)(J7620) NEB PRN (12:15)
--- NOTE | 2019-03-27 12:17 | HPEPDOC ---
[facility] Medical History & Physical Date of Admission Mar 27, 2019 Date of Service: Mar 27, 2019 Attending Physician: DORON LOPEZ MD History and Physical CHIEF COMPLAINT: Rib pain HISTORY OF PRESENT ILLNESS: 61-year-old female with past medical history of diabetes, COPD, small cell lung cancer, adrenal insufficiency was admitted one week ago for rib fractures status post mechanical fall, discharge yesterday, returns with continued rib pain. She reports that pain was well controlled during hospitalization, was not sent home on a pain medication, returns due to moderate to severe pain. She reports significant improvement and in pain after getting pain medication in the ED. She has no other associated symptoms; she denies any shortness of breath, chest pain, nausea, vomiting, diarrhea, con stipation, abdominal pain at this time. She was noted to be hypotensive in the ED, history of edema and insufficiency, poorly managed due to medication noncompliance, received IV hydrocortisone in the ED. 10 point review system was negative except for above PAST MEDICAL HISTORY: 1. COPD. 2. Small cell lung cancer. 3. Renal insufficiency. 4. Diabetes mellitus. PAST SURGICAL HISTORY: 1. Hysterectomy. 2. , Appendectomy. 3. , Tonsillectomy. SOCIAL HISTORY: Current smoker, 1 pack per day, no plans on quitting. Denies alcohol use FAMILY HISTORY: Noncontributory to current visit ALLERGIES: Please see below. HOME MEDICATIONS: Please see below. PHYSICAL EXAMINATION: VITAL SIGNS: Please see below. GENERAL: No distress HEENT: Normocephalic, atraumatic, moist mucous membranes NECK: Supple CARDIOVASCULAR EXAMINATION: S1, S2, no murmurs RESPIRATORY EXAMINATION: Diminished, slight wheezing, reproducible sharp rib pain on the right side. ABDOMINAL EXAMINATION: Soft, nontender, nondistended, positive bowel sounds EXTREMITIES: Range of motion intact SKIN: No rash NEUROLOGICAL EXAMINATION: Alert and oriented 3, no focal deficits PSYCHIATRIC EXAMINATION: Calm and cooperative LABORATORY DATA: See below. MICROBIOLOGY: Please see below. ASSESSMENT: Exceeded 3-year-old female with multiple comorbidities was recently admitted for rib fractures status post fall, returns after 1 day of discharge due to continued pain.. . PLAN: 1. Rib fractures. Previous imaging confirms to rib fractures, nondisplaced. Continue pain control with Percocet. 2. Adrenal insufficiency. Hypotensive, likely noncompliant with all medication, received IV hydrocortisone in the ED. Continue home regimen of fludrocortisone and hydrocortisone. 3. COPD - stable - continue home meds - supplemental O2 as needed to maintain O2 sats ~90% 4. DM - continue metformin - sliding scale insulin w/ fingersticks qAC & HS 5. Small cell lung cancer - reports treatment via port last year DVT prophylaxis: Heparin SubQ GI Prophylaxis: PPI Vital Signs Vital Signs Date Time Temp Pulse Resp B/P (MAP) Pulse Ox O2 Delivery O2 Flow Rate FiO2 03/27/19 11:49 85 03/27/19 11:45 96/62 (73) 03/27/19 11:24 93 03/27/19 07:09 25 Room Air 03/27/19 05:19 98.0 Laboratory Data Labs 24H Laboratory Tests 2 03/27/19 07:27: Nucleated Red Blood Cells % (auto) 0.0, Neutrophils 63, Band Neutrophils 1, Lymphocytes (Manual) 23, Monocytes (Manual) 7H, Basophils (Manual) 1, Atypical Lymphocytes 5, Platelet Estimate NORMAL, Anion Gap 7L, Glomerular Filtration Rate > 60.0, Blood Urea Nitrogen 9, Creatinine 0.40L, Sodium Level 131L, Potassium Level 3.4L, Chloride Level 91L, Carbon Dioxide Level 33H, Calcium Level 8.4L, Aspartate Amino Transf (AST/SGOT) 22, Alanine Aminotransferase (ALT/SGPT) 30, Total Creatine Kinase 56, Alkaline Phosphatase 69, Total Bilirubin 0.8, Total Protein 6.0L, Albumin 2.9L, Creatine Kinase MB 1.8, Creatine Kinase MB Relative Index 3.21, Troponin I < 0.02, Albumin/Globulin Ratio 0.94L 03/27/19 09:46: Urine Color STRAW, Urine Appearance HAZY, Urine pH 7.0, Urine Specific [place] 1.004, Urine Protein NEGATIVE, Urine Glucose (UA) NEGATIVE, Urine Ketones NEGATIVE, Urine Blood NEGATIVE, Urine Nitrite NEGATIVE, Urine Bilirubin NE GATIVE, Urine Urobilinogen 0.2, Urine Leukocyte Esterase NEGATIVE, Urine WBC (Auto) 1, Urine RBC (Auto) 0, Urine Hyaline Casts (Auto) 0, Urine Bacteria (Auto) 1+H, Urine Squamous Epithelial Cells 5, Urine Mucus (Auto) SMALL, Urine Sperm (Auto) CBC/BMP Laboratory Tests 03/27/19 07:27 Red Blood Count 4.77, Mean Corpuscular Volume 92.9, Mean Corpuscular Hemoglobin 32.7, Mean Corpuscular Hemoglobin Concent 35.2, Red Cell Distribution Width 12.9, Calcium Level 8.4 L, Aspartate Amino Transf (AST/SGOT) 22, Alanine Aminotransferase (ALT/SGPT) 30, Total Creatine Kinase 56, Alkaline Phosphatase 69, Total Bilirubin 0.8, Total Protein 6.0 L, Albumin 2.9 L Home Medications Scheduled Aspirin (Aspirin EC) 81 Mg Tablet.dr, 81 MG PO DAILY Atorvastatin Calcium (Atorvastatin Calcium) 20 Mg Tablet, 40 MG PO DAILY Citalopram Hydrobromide (Celexa) 10 Mg Tablet, 10 MG PO DAILY Clopidogrel Bisulfate (Plavix) 75 Mg Tablet, 75 MG PO DAILY Fludrocortisone Acetate (Fludrocortisone Acetate) 0.1 Mg Tablet, 0.1 MG PO DAILY Folic Acid (Folic Acid) 1 Mg Tablet, 1 MG PO DAILY Hydrocortisone (Hydrocortisone) 20 Mg Tablet, 60 MG PO QAM Hydrocortisone (Hydrocortisone) 20 Mg Tablet, 20 MG PO QPM TAKE AT 1800 Levofloxacin (Levaquin) 750 Mg Tablet, 750 MG PO DAILY START 03/26 FOR 7 DAYS Magnesium Chloride (Mag64) 64 Mg Tablet.dr, 64 MG PO TID Metformin HCl (Metformin HCl ER) 500 Mg Tab.er.24h, 500 MG PO DAILY Midodrine HCl (Midodrine HCl) 2.5 Mg Tablet, 2.5 MG PO TID TAKES AT 0800/1200/1600 Multivitamin (Multivitamins) 1 Each Tablet, 1 TAB PO DAILY Thiamine HCl (Thiamine HCl) 100 Mg Tablet, 100 MG PO DAILY Scheduled PRN Albuterol Sulfate (Ventolin Hfa) 18 Gm Hfa.aer.ad, 2 PUFF INH Q6H PRN for SHORTNESS OF BREATH Allergies Coded Allergies: No Known Allergies (Unverified , 03/27/19) A-FIB/CHADSVASC A-FIB History Current/History of A-Fib/PAF?: No DORON LOPEZ MD Mar 27, 2019 12:17
[2019-03-27] MEDS ORDERED: GLUCOSE 4 GM CHEW TABLET PO PRN (12:30)
[2019-03-27] MEDS ORDERED: DEXTROSE 50% 50 ML SYRINGE IV PRN (12:30)
[2019-03-27] MEDS ORDERED: GLUCAGON FOR INJ 1 MG VIAL (J1610) SC PRN (12:30)
[2019-03-27 14:20] VITALS: BP 68/50
[2019-03-27 15:00] VITALS: BP 76/48
[2019-03-27] MEDS: THIAMINE 100 MG TAB PO SCH (15:26)
[2019-03-27] MEDS: ATORVASTATIN 20 MG TAB PO SCH (15:26)
[2019-03-27] MEDS: ASPIRIN 81 MG ENTERIC TAB PO SCH (15:26)
[2019-03-27] MEDS: metFORMIN XR 500MG TAB *GLUCOPHAGE XR PO SCH (15:26)
[2019-03-27] MEDS: LevoFLOXacin 750 MG TABLET PO SCH (15:26)
[2019-03-27] MEDS: FOLIC ACID 1 MG TAB PO SCH (15:26)
[2019-03-27] MEDS: FLUDROCORTISONE ACETATE 0.1 MG TAB PO SCH (15:26)
[2019-03-27] MEDS: CitaloPRAM (CeleXA) 10 MG TABLET PO SCH (15:26)
[2019-03-27] MEDS: CLOPIDOGREL 75 MG TAB PO SCH (15:27)
[2019-03-27] MEDS: HYDROCORTISONE 10 MG TAB PO SCH ×2 (15:27→17:55)
[2019-03-27 16:00] VITALS: BP 82/50
[2019-03-27] MEDS ORDERED: HumaLOG INSULIN (NovoLOG) PER UNIT SC SCH (17:30)
[2019-03-27 21:09] VITALS: BP 111/74
[2019-03-28] MEDS: LevoFLOXacin 750 MG TABLET PO SCH (05:11)
[2019-03-28] MEDS: PERCOCET 5MG/325MG TAB PO SCH ×4 (05:11→17:12)
[2019-03-28 06:00] VITALS: BP 110/75
[2019-03-28 06:11] LABS: HEMATOCRIT 38.1 % (36.0-47.0); MEAN CORPUSCULAR HEMOGLOBIN 32.4 pg (27.0-33.0); MEAN CORPUSCULAR HGB CONC 35.2 g/dl (32.0-36.5); MEAN CORPUSCULAR VOLUME 92.3 fl (80.0-96.0); PLATELET COUNT, AUTOMATED 267 10^3/uL (150-450); RED BLOOD COUNT 4.13 10^6/uL (4.00-5.40); WHITE BLOOD COUNT 17.2 10^3/uL (4.0-10.0)
[2019-03-28 06:14] LABS: HEMOGLOBIN 13.4 g/dl (12.0-15.5)
[2019-03-28 06:41] LABS: ALBUMIN 2.7 GM/DL (3.2-5.2); ALT/SGPT 29 U/L (12-78); BILIRUBIN,TOTAL 0.6 MG/DL (0.2-1.0); BLOOD UREA NITROGEN 20 MG/DL (7-18); CALCIUM LEVEL 8.1 MG/DL (8.8-10.2); CARBON DIOXIDE LEVEL 31 MEQ/L (21-32); CHLORIDE LEVEL 95 MEQ/L (98-107); CREATININE FOR GFR 0.54 MG/DL (0.55-1.30); GLOMERULAR FILTRATION RATE > 60.0 (>45); GLUCOSE, FASTING 124 MG/DL (70-100); MAGNESIUM LEVEL 1.7 MG/DL (1.8-2.4); POTASSIUM SERUM 3.6 MEQ/L (3.5-5.1); SODIUM LEVEL 132 MEQ/L (136-145); TOTAL PROTEIN 5.5 GM/DL (6.4-8.2)
[2019-03-28] MEDS: HumaLOG INSULIN (NovoLOG) PER UNIT SC SCH ×4 (07:30→21:00)
[2019-03-28] MEDS: MAGNESIUM CHLORIDE 64 MG TABCR (SLO MAG) PO SCH ×3 (09:00→22:00)
[2019-03-28] MEDS ORDERED: FLUBLOK(EGG FREE)(QUAD)INFLUENZA VACC 0.5ML SYRINGE (90682)18YRS&OLDER IM ONE (09:00)
[2019-03-28] MEDS: HEPARIN SOD (PORCINE) 5000 UNITS/ML VIAL SC SCH ×2 (09:00→22:00)
[2019-03-28] MEDS ORDERED: POTASSIUM CHLORIDE 10 MEQ SR TABLET PO ONE (09:15)
[2019-03-28] MEDS: CitaloPRAM (CeleXA) 10 MG TABLET PO SCH (10:10)
[2019-03-28] MEDS: MIDODRINE 5 MG TAB PO SCH ×2 (10:11→15:57)
[2019-03-28] MEDS: ATORVASTATIN 20 MG TAB PO SCH (10:11)
[2019-03-28] MEDS: ASPIRIN 81 MG ENTERIC TAB PO SCH (10:11)
[2019-03-28] MEDS: CLOPIDOGREL 75 MG TAB PO SCH (10:12)
[2019-03-28] MEDS: FOLIC ACID 1 MG TAB PO SCH (10:12)
[2019-03-28] MEDS: THIAMINE 100 MG TAB PO SCH (10:12)
[2019-03-28] MEDS: MAG SULF 1GM/100ML (MAG RUN) 1 GM in IV 1 EA IV SCH ×2 (10:12→11:21)
[2019-03-28] MEDS: metFORMIN XR 500MG TAB *GLUCOPHAGE XR PO SCH (10:20)
[2019-03-28] MEDS: HYDROCORTISONE 10 MG TAB PO SCH ×2 (10:21→17:09)
[2019-03-28] MEDS: FLUDROCORTISONE ACETATE 0.1 MG TAB PO SCH (10:59)
[2019-03-28] MEDS ORDERED: PERCOCET PO (11:04)
[2019-03-28] MEDS ORDERED: MIDO5TA PO (11:04)
[2019-03-28 14:00] VITALS: BP 113/72
--- NOTE | 2019-03-28 16:08 | IPNPDOC ---
Date Seen The patient was seen on 03/28/19. Progress Note HISTORY OF PRESENT ILLNESS: 61-year-old female with past medical history of diabetes, COPD, small cell lung cancer, adrenal insufficiency was admitted one week ago for rib fractures status post mechanical fall, discharge yesterday, returns with continued rib pain. She reports that pain was well controlled during hospitalization, was not sent home on a pain medication, returns due to moderate to severe pain. She reports significant improvement and in pain after getting pain medication in the ED. She has no other associated symptoms; she denies any shortness of breath, chest pain, nausea, vomiting, diarrhea, constipation, abdominal pain at this time. She was noted to be hypotensive in the ED, history of edema and insufficiency, poorly managed due to medication noncompliance, received IV hydrocortisone in the ED. 03/28/2019 Patient without any complaints, reports significant improvement in rib pain, currently pain-free, wishing to go home. Patient was evaluated by physical therapy, unsafe for discharge home, will require rehabilitation/placement eval. She denies any shortness of breath, chest pain, nausea, vomiting or abdominal pain at this time. 10 point review system was negative except for above ALLERGIES: Please see below. HOME MEDICATIONS: Please see below. PHYSICAL EXAMINATION: VITAL SIGNS: Please see below. GENERAL: No distress HEENT: Normocephalic, atraumatic, moist mucous membranes NECK: Supple CARDIOVASCULAR EXAMINATION: S1, S2, no murmurs RESPIRATORY EXAMINATION: Diminished, slight wheezing, reproducible sharp rib pain on the right side. ABDOMINAL EXAMINATION: Soft, nontender, nondistended, positive bowel sounds EXTREMITIES: Range of motion intact SKIN: No rash NEUROLOGICAL EXAMINATION: Alert and oriented 3, no focal deficits PSYCHIATRIC EXAMINATION: Calm and cooperative LABORATORY DATA: See below. MICROBIOLOGY: Please see below. ASSESSMENT: 63-year-old female with multiple comorbidities was recently admitted for rib fractures status post fall, returns after 1 day of discharge due to continued pain. . PLAN: 1. Rib fractures. Previous imaging confirms two non-displaced rib fractures Continue pain control with Percocet. She failed home safety eval by physical therapy, will consider options regarding rehabilitation/placement. 2. Adrenal insufficiency. Hypotensive, likely noncompliant with all medication, received IV hydrocortis one in the ED. Continue home regimen of fludrocortisone and hydrocortisone. Increase midodrine to 5 mg 3 times a day 3. COPD - stable - continue home meds - supplemental O2 as needed to maintain O2 sats ~90% 4. DM - continue metformin - sliding scale insulin w/ fingersticks qAC & HS 5. Small cell lung cancer - reports treatment via port last year DVT prophylaxis: Heparin SubQ GI Prophylaxis: PPI VS, I&O, 24H, Fishbone Vital Signs/I&O Vital Signs Date Time Temp Pulse Resp B/P (MAP) Pulse Ox O2 Delivery O2 Flow Rate FiO2 03/28/19 14:00 97.8 98 21 113/72 (86) 91 03/27/19 14:13 Room Air I&O- Last 24 Hours up to 6 AM 03/28/19 05:59 Intake Total 2280 ml Output Total 450 ml Balance 1830 ml Laboratory Data 24H LABS Laboratory Tests 2 03/27/19 17:32: Bedside Glucose (Misc Panel) 244H 03/28/19 06:00: Nucleated Red Blood Cells % (auto) 0.0, Anion Gap 6L, Glomerular Filtration Rate > 60.0, Calcium Level 8.1L, Magnesium Level 1.7L, Total Bilirubin 0.6, Aspartate Amino Transf (AST/SGOT) 18, Alanine Aminotransferase (ALT/SGPT) 29, Alkaline Phosphatase 82, Total Protein 5.5L, Albumin 2.7L, Albumin/Globulin Ratio 0.96L, Procalcitonin 0.02 CBC/BMP Laboratory Tests 03/28/19 06:00 Microbiology Microbiology 03/27/19 Blood Culture - Preliminary, Resulted No growth after 24 hours . All specim... DORON LOPEZ MD Mar 28, 2019 15:53
[2019-03-28 16:41] LABS: MAGNESIUM LEVEL 2.1 MG/DL (1.8-2.4)
[2019-03-28 22:00] VITALS: BP 119/70
[2019-03-29 06:00] VITALS: BP 117/73
[2019-03-29] MEDS: PERCOCET 5MG/325MG TAB PO SCH ×4 (06:00→18:00)
[2019-03-29] MEDS: LevoFLOXacin 750 MG TABLET PO SCH (06:02)
[2019-03-29 06:50] LABS: HEMATOCRIT 40.4 % (36.0-47.0); MEAN CORPUSCULAR HEMOGLOBIN 32.1 pg (27.0-33.0); MEAN CORPUSCULAR HGB CONC 34.7 g/dl (32.0-36.5); MEAN CORPUSCULAR VOLUME 92.7 fl (80.0-96.0); PLATELET COUNT, AUTOMATED 269 10^3/uL (150-450); RED BLOOD COUNT 4.36 10^6/uL (4.00-5.40); WHITE BLOOD COUNT 19.6 10^3/uL (4.0-10.0)
[2019-03-29 07:26] LABS: ALBUMIN 2.5 GM/DL (3.2-5.2); ALT/SGPT 27 U/L (12-78); BILIRUBIN,TOTAL 0.4 MG/DL (0.2-1.0); BLOOD UREA NITROGEN 19 MG/DL (7-18); CALCIUM LEVEL 7.9 MG/DL (8.8-10.2); CARBON DIOXIDE LEVEL 31 MEQ/L (21-32); CHLORIDE LEVEL 102 MEQ/L (98-107); CREATININE FOR GFR 0.45 MG/DL (0.55-1.30); GLOMERULAR FILTRATION RATE > 60.0 (>45); GLUCOSE, FASTING 97 MG/DL (70-100); POTASSIUM SERUM 3.1 MEQ/L (3.5-5.1); SODIUM LEVEL 139 MEQ/L (136-145); TOTAL PROTEIN 5.7 GM/DL (6.4-8.2)
[2019-03-29] MEDS: HumaLOG INSULIN (NovoLOG) PER UNIT SC SCH ×4 (07:30→20:58)
[2019-03-29] MEDS: CLOPIDOGREL 75 MG TAB PO SCH (08:43)
[2019-03-29] MEDS: ASPIRIN 81 MG ENTERIC TAB PO SCH (08:43)
[2019-03-29] MEDS: ATORVASTATIN 20 MG TAB PO SCH (08:43)
[2019-03-29] MEDS: POTASSIUM CHLORIDE 10 MEQ SR TABLET PO SCH ×2 (08:43→12:23)
[2019-03-29] MEDS: MAGNESIUM CHLORIDE 64 MG TABCR (SLO MAG) PO SCH ×3 (08:43→20:59)
[2019-03-29] MEDS: HEPARIN SOD (PORCINE) 5000 UNITS/ML VIAL SC SCH ×2 (08:44→20:59)
[2019-03-29] MEDS: THIAMINE 100 MG TAB PO SCH (08:44)
[2019-03-29] MEDS: metFORMIN XR 500MG TAB *GLUCOPHAGE XR PO SCH (08:44)
[2019-03-29] MEDS: FLUDROCORTISONE ACETATE 0.1 MG TAB PO SCH (08:44)
[2019-03-29] MEDS: CitaloPRAM (CeleXA) 10 MG TABLET PO SCH (08:45)
[2019-03-29] MEDS: MIDODRINE 5 MG TAB PO SCH ×3 (08:45→15:21)
[2019-03-29] MEDS: FOLIC ACID 1 MG TAB PO SCH (08:45)
[2019-03-29] MEDS: HYDROCORTISONE 10 MG TAB PO SCH (08:45)
[2019-03-29] MEDS ORDERED: FLUBLOK(EGG FREE)(QUAD)INFLUENZA VACC 0.5ML SYRINGE (90682)18YRS&OLDER IM PRN (09:00)
[2019-03-29 14:00] VITALS: BP 74/58
--- NOTE | 2019-03-29 14:25 | IPNPDOC ---
Date Seen The patient was seen on 03/29/19. Progress Note HISTORY OF PRESENT ILLNESS: 61-year-old female with past medical history of diabetes, COPD, small cell lung cancer, adrenal insufficiency was admitted one week ago for rib fractures status post mechanical fall, discharge yesterday, returns with continued rib pain. She reports that pain was well controlled during hospitalization, was not sent home on a pain medication, returns due to moderate to severe pain. She reports significant improvement and in pain after getting pain medication in the ED. She has no other associated symptoms; she denies any shortness of breath, chest pain, nausea, vomiting, diarrhea, constipation, abdominal pain at this time. She was noted to be hypotensive in the ED, history of edema and insufficiency, poorly managed due to medication noncompliance, received IV hydrocortisone in the ED. 03/28/2019 Patient without any complaints, reports significant improvement in rib pain, currently pain-free, wishing to go home. Patient was evaluated by physical therapy, unsafe for discharge home, will require rehabilitation/placement eval. She denies any shortness of breath, chest pain, nausea, vomiting or abdominal pain at this time. 03/29/2019 Patient comfortable in bed, without any complaints, reports that she is doing well with activity and physical therapy as opposed to physical therapy reporting that she will require rehabilitation placement as she is an unsafe discharge, despite that, patient wishes to go home despite living alone. She denies any shortness of breath, dizziness, chest pain, vomiting, abdominal pain or diarrhea 10 point review system was negative except for above ALLERGIES: Please see below. HOME MEDICATIONS: Please see below. PHYSICAL EXAMINATION: VITAL SIGNS: Please see below. GENERAL: No distress HEENT: Normocephalic, atraumatic, moist mucous membranes NECK: Supple CARDIOVASCULAR EXAMINATION: S1, S2, no murmurs RESPIRATORY EXAMINATION: Clear to auscultation ABDOMINAL EXAMINATION: Soft, nontender, nondistended, positive bowel sounds EXTREMITIES: Range of motion intact SKIN: No rash NEUROLOGICAL EXAMINATION: Alert and oriented 3, no focal deficits PSYCHIATRIC EXAMINATION: Calm and cooperative LABORATORY DATA: See below. MICROBIOLOGY: Please see below. ASSESSMENT: 63-year-old female with multiple comorbidities was recently admitted for rib fractures status post fall, returns after 1 day of discharge due to con tinued pain. . PLAN: 1. Rib fractures. Previous imaging confirms two non-displaced rib fractures Continue pain control with Percocet. PT recommends rehabilitation/placement, patient is resistant and wishes to go home despite living alone. 2. Adrenal insufficiency. Hypotensive, likely noncompliant with all medication, received IV hydrocortisone in the ED. Will switch hydrocortisone to prednisone 20 mg once a day to improve compliance, will titrate down as tolerated by blood pressure. Decrease fludrocortisone dose to 50 g this patient is becoming hypernatremic and remains hypokalemic. Continue midodrine 5 mg 3 times a day 3. COPD - stable - continue home meds - supplemental O2 as needed to maintain O2 sats ~90% 4. DM - continue metformin - sliding scale insulin w/ fingersticks qAC & HS 5. Small cell lung cancer - reports treatment via port last year DVT prophylaxis: Heparin SubQ GI Prophylaxis: PPI VS, I&O, 24H, Fishbone Vital Signs/I&O Vital Signs Date Time Temp Pulse Resp B/P (MAP) Pulse Ox O2 Delivery O2 Flow Rate FiO2 03/29/19 06:00 97.7 64 18 117/73 (88) 97 03/27/19 14:13 Room Air I&O- Last 24 Hours up to 6 AM 03/29/19 06:00 Intake Total 540 ml Balance 540 ml Laboratory Data 24H LABS Laboratory Tests 2 03/28/19 16:04: Phosphorus Level 3.0, Magnesium Level 2.1 03/28/19 16:16: Bedside Glucose (Misc Panel) 184H 03/28/19 20:41: Bedside Glucose (Misc Panel) 149H 03/29/19 06:36: Nucleated Red Blood Cells % (auto) 0.0, Anion Gap 6L, Glomerular Filtration Rate > 60.0, Calcium Level 7.9L, Total Bilirubin 0.4, Aspartate Amino Transf (AST/SGOT) 19, Alanine Aminotransferase (ALT/SGPT) 27, Alkaline Phosphatase 91, Total Protein 5.7L, Albumin 2.5L, Albumin/Globulin Ratio 0.78L 03/29/19 11:51: Bedside Glucose (Misc Panel) 149H CBC/BMP Laboratory Tests 03/29/19 06:36 Microbiology Microbiology 03/27/19 Blood Culture - Preliminary, Resulted No growth after 24 hours . All specim... DORON LOPEZ MD Mar 29, 2019 14:25
[2019-03-29] MEDS ORDERED: PILL CUTTER 1 EACH XX PRN (15:00)
[2019-03-29 22:00] VITALS: BP 103/59
[2019-03-30 06:00] VITALS: BP 104/71
[2019-03-30] MEDS: PERCOCET 5MG/325MG TAB PO SCH ×4 (06:00→17:28)
[2019-03-30 07:02] LABS: HEMATOCRIT 42.2 % (36.0-47.0); HEMOGLOBIN 14.6 g/dl (12.0-15.5); MEAN CORPUSCULAR HEMOGLOBIN 32.2 pg (27.0-33.0); MEAN CORPUSCULAR HGB CONC 34.6 g/dl (32.0-36.5); PLATELET COUNT, AUTOMATED 288 10^3/uL (150-450); RED BLOOD COUNT 4.54 10^6/uL (4.00-5.40); WHITE BLOOD COUNT 20.9 10^3/uL (4.0-10.0)
[2019-03-30] MEDS: HumaLOG INSULIN (NovoLOG) PER UNIT SC SCH ×4 (07:30→21:00)
[2019-03-30 07:37] LABS: BLOOD UREA NITROGEN 13 MG/DL (7-18); CALCIUM LEVEL 7.8 MG/DL (8.8-10.2); CARBON DIOXIDE LEVEL 31 MEQ/L (21-32); CHLORIDE LEVEL 97 MEQ/L (98-107); CREATININE FOR GFR 0.42 MG/DL (0.55-1.30); GLOMERULAR FILTRATION RATE > 60.0 (>45); GLUCOSE, FASTING 80 MG/DL (70-100); MAGNESIUM LEVEL 1.8 MG/DL (1.8-2.4); POTASSIUM SERUM 3.5 MEQ/L (3.5-5.1); SODIUM LEVEL 133 MEQ/L (136-145)
[2019-03-30] MEDS ORDERED: POTASSIUM CHLORIDE 10 MEQ SR TABLET PO ONE (08:30)
[2019-03-30] MEDS ORDERED: MAG SULF 1GM/100ML (MAG RUN) 1 GM in IV 1 EA IV ONE (08:30)
[2019-03-30] MEDS ORDERED: predniSONE 20 MG TAB PO SCH (09:00)
[2019-03-30] MEDS: MIDODRINE 5 MG TAB PO SCH ×2 (09:01→12:29)
[2019-03-30] MEDS: HEPARIN SOD (PORCINE) 5000 UNITS/ML VIAL SC SCH ×2 (09:01→22:27)
[2019-03-30] MEDS: ASPIRIN 81 MG ENTERIC TAB PO SCH (09:01)
[2019-03-30] MEDS: CLOPIDOGREL 75 MG TAB PO SCH (09:01)
[2019-03-30] MEDS: ATORVASTATIN 20 MG TAB PO SCH (09:01)
[2019-03-30] MEDS: CitaloPRAM (CeleXA) 10 MG TABLET PO SCH (09:02)
[2019-03-30] MEDS: FOLIC ACID 1 MG TAB PO SCH (09:02)
[2019-03-30] MEDS: THIAMINE 100 MG TAB PO SCH (09:02)
[2019-03-30] MEDS: FLUDROCORTISONE ACETATE 0.1 MG TAB PO SCH (09:02)
[2019-03-30] MEDS: metFORMIN XR 500MG TAB *GLUCOPHAGE XR PO SCH (09:02)
[2019-03-30] MEDS: MAGNESIUM CHLORIDE 64 MG TABCR (SLO MAG) PO SCH ×3 (09:03→22:27)
--- NOTE | 2019-03-30 13:15 | IPNPDOC ---
Date Seen The patient was seen on 03/30/19. Progress Note HISTORY OF PRESENT ILLNESS: 61-year-old female with past medical history of diabetes, COPD, small cell lung cancer, adrenal insufficiency was admitted one week ago for rib fractures status post mechanical fall, discharge yesterday, returns with continued rib pain. She reports that pain was well controlled during hospitalization, was not sent home on a pain medication, returns due to moderate to severe pain. She reports significant improvement and in pain after getting pain medication in the ED. She has no other associated symptoms; she denies any shortness of breath, chest pain, nausea, vomiting, diarrhea, constipation, abdominal pain at this time. She was noted to be hypotensive in the ED, history of edema and insufficiency, poorly managed due to medication noncompliance, received IV hydrocortisone in the ED. 03/28/2019 Patient without any complaints, reports significant improvement in rib pain, currently pain-free, wishing to go home. Patient was evaluated by physical therapy, unsafe for discharge home, will require rehabilitation/placement eval. She denies any shortness of breath, chest pain, nausea, vomiting or abdominal pain at this time. 03/29/2019 Patient comfortable in bed, without any complaints, reports that she is doing well with activity and physical therapy as opposed to physical therapy reporting that she will require rehabilitation placement as she is an unsafe discharge, despite that, patient wishes to go home despite living alone. She denies any shortness of breath, dizziness, chest pain, vomiting, abdominal pain or diarrhea. 03/30/2019 Patient comfortable in bed, notified that PT recommends placement as patient is an unsafe discharge home because she lives alone and is unable to care for self, requires 24-hour care. Patient is adamant that she will not go to rehabilitation, wishes to go home despite not being safe for her. Patient reports no complaints at this time, denies sugars of breath, chest pain, vomiting, abdominal pain or diarrhea. 10 point review system was negative except for above ALLERGIES: Please see below. HOME MEDICATIONS: Please see below. PHYSICAL EXAMINATION: VITAL SIGNS: Please see below. GENERAL: No distress HEENT: Normocephalic, atraumatic, moist mucous membranes NECK: Supple CARDIOVASCULAR EXAMINATION: S1, S2, no murmurs RESPIRATORY EXAMINATION: Clear to auscultation ABDOMINAL EXAMINATION: Soft, nontender, nondistended, positive bowel sounds EXTREMITIES: Range of motion intact SKIN: No rash NEUROLOGICAL EXAMINATION: Alert and oriented 3, no focal deficits PSYCHIATRIC EXAMINATION: Calm and cooperative LABORATORY DATA: See below. MICROBIOLOGY: Please see below. ASSESSMENT: 63-year-old female with multiple comorbidities was recently admitted for rib fractures status post fall, returns after 1 day of discharge due to continued pain. . PLAN: 1. Rib fractures. Previous imaging confirms two non-displaced rib fractures Continue pain control with Percocet as needed. PT recommends rehabilitation/placement, patient is resistant and wishes to go home despite living alone. 2. Adrenal insufficiency. Hypotensive, likely noncompliant with all medication, received IV hydrocortisone in the ED. Will decrease prednisone to 10 mg daily along with decreasing midodrine 2.5 mg 3 times a day. Decrease fludrocortisone dose to 50 g this patient is becoming hypernatremic and remains hypokalemic. Will monitor blood pressure and electrolytes, will adjust medication as needed. 3. COPD - stable - continue home meds - supplemental O2 as needed to maintain O2 sats ~90% 4. DM - continue metformin - sliding scale insulin w/ fingersticks qAC & HS 5. Small cell lung cancer - reports treatment via port last year DVT prophylaxis: Heparin SubQ GI Prophylaxis: PPI VS, I&O, 24H, Fishbone Vital Signs/I&O Vital Signs Date Time Temp Pulse Resp B/P (MAP) Pulse Ox O2 Delivery O2 Flow Rate FiO2 03/30/19 12:00 18 03/30/19 06:00 98.0 87 104/71 (82) 87 Room Air I&O- Last 24 Hours up to 6 AM 03/30/19 05:59 Intake Total 1420 ml Output Total 150 ml Balance 1270 ml Laboratory Data 24H LABS Laboratory Tests 2 03/29/19 20:52: Bedside Glucose (Misc Panel) 85 03/30/19 06:26: Nucleated Red Blood Cells % (auto) 0.0, Anion Gap 5L, Glomerular Filtration Rate > 60.0, Calcium Level 7.8L, Phosphorus Level 3.0, Magnesium Level 1.8 03/30/19 11:45: Bedside Glucose (Misc Panel) 228H 03/30/19 12:26: Bedside Glucose (Misc Panel) 181H CBC/BMP Laboratory Tests 03/30/19 06:26 Microbiology Microbiology 03/27/19 Blood Culture - Preliminary, Resulted No Growth after 48 hours. All Specime... DORON LOPEZ MD Mar 30, 2019 13:15
[2019-03-30 14:09] VITALS: BP 89/60
[2019-03-30] MEDS: MIDODRINE 2.5 MG TAB PO SCH (14:54)
[2019-03-30 22:00] VITALS: BP 95/53
[2019-03-31] MEDS: PERCOCET 5MG/325MG TAB PO SCH ×5 (00:28→23:54)
[2019-03-31 06:00] VITALS: BP 87/59
[2019-03-31] MEDS: HumaLOG INSULIN (NovoLOG) PER UNIT SC SCH ×4 (07:30→20:07)
[2019-03-31 08:18] LABS: HEMATOCRIT 40.3 % (36.0-47.0); HEMOGLOBIN 13.9 g/dl (12.0-15.5); MEAN CORPUSCULAR HEMOGLOBIN 32.1 pg (27.0-33.0); MEAN CORPUSCULAR HGB CONC 34.5 g/dl (32.0-36.5); MEAN CORPUSCULAR VOLUME 93.1 fl (80.0-96.0); PLATELET COUNT, AUTOMATED 284 10^3/uL (150-450); RED BLOOD COUNT 4.33 10^6/uL (4.00-5.40); WHITE BLOOD COUNT 21.8 10^3/uL (4.0-10.0)
[2019-03-31 08:43] LABS: ALBUMIN 2.7 GM/DL (3.2-5.2); ALT/SGPT 28 U/L (12-78); BILIRUBIN,TOTAL 0.6 MG/DL (0.2-1.0); BLOOD UREA NITROGEN 10 MG/DL (7-18); CALCIUM LEVEL 8.5 MG/DL (8.8-10.2); CARBON DIOXIDE LEVEL 29 MEQ/L (21-32); CHLORIDE LEVEL 98 MEQ/L (98-107); CREATININE FOR GFR 0.39 MG/DL (0.55-1.30); GLOMERULAR FILTRATION RATE > 60.0 (>45); GLUCOSE, FASTING 86 MG/DL (70-100); MAGNESIUM LEVEL 1.8 MG/DL (1.8-2.4); PHOSPHORUS LEVEL 4.8 MG/DL (2.5-4.9); POTASSIUM SERUM 3.7 MEQ/L (3.5-5.1); SODIUM LEVEL 132 MEQ/L (136-145)
[2019-03-31] MEDS ORDERED: MAG SULF 1GM/100ML (MAG RUN) 1 GM in IV 1 EA IV ONE (10:00)
[2019-03-31] MEDS ORDERED: POTASSIUM CHLORIDE 10 MEQ SR TABLET PO ONE (10:00)
[2019-03-31] MEDS: MAGNESIUM CHLORIDE 64 MG TABCR (SLO MAG) PO SCH ×3 (10:11→20:07)
[2019-03-31] MEDS: metFORMIN XR 500MG TAB *GLUCOPHAGE XR PO SCH (10:12)
[2019-03-31] MEDS: predniSONE 20 MG TAB PO SCH (10:12)
[2019-03-31] MEDS: FOLIC ACID 1 MG TAB PO SCH (10:12)
[2019-03-31] MEDS: FLUDROCORTISONE ACETATE 0.1 MG TAB PO SCH (10:12)
[2019-03-31] MEDS: ATORVASTATIN 20 MG TAB PO SCH (10:12)
[2019-03-31] MEDS: ASPIRIN 81 MG ENTERIC TAB PO SCH (10:13)
[2019-03-31] MEDS: CitaloPRAM (CeleXA) 10 MG TABLET PO SCH (10:13)
[2019-03-31] MEDS: HEPARIN SOD (PORCINE) 5000 UNITS/ML VIAL SC SCH ×2 (10:13→20:08)
[2019-03-31] MEDS: THIAMINE 100 MG TAB PO SCH (10:13)
[2019-03-31] MEDS: CLOPIDOGREL 75 MG TAB PO SCH (10:13)
[2019-03-31] MEDS: MIDODRINE 2.5 MG TAB PO SCH ×3 (10:13→16:14)
[2019-03-31 14:00] VITALS: BP 116/50
--- NOTE | 2019-03-31 17:43 | IPNPDOC ---
Date Seen The patient was seen on 03/31/19. Progress Note HISTORY OF PRESENT ILLNESS: 61-year-old female with past medical history of diabetes, COPD, small cell lung cancer, adrenal insufficiency was admitted one week ago for rib fractures status post mechanical fall, discharge yesterday, returns with continued rib pain. She reports that pain was well controlled during hospitalization, was not sent home on a pain medication, returns due to moderate to severe pain. She reports significant improvement and in pain after getting pain medication in the ED. She has no other associated symptoms; she denies any shortness of breath, chest pain, nausea, vomiting, diarrhea, constipation, abdominal pain at this time. She was noted to be hypotensive in the ED, history of edema and insufficiency, poorly managed due to medication noncompliance, received IV hydrocortisone in the ED. 03/28/2019 Patient without any complaints, reports significant improvement in rib pain, currently pain-free, wishing to go home. Patient was evaluated by physical therapy, unsafe for discharge home, will require rehabilitation/placement eval. She denies any shortness of breath, chest pain, nausea, vomiting or abdominal pain at this time. 03/29/2019 Patient comfortable in bed, without any complaints, reports that she is doing well with activity and physical therapy as opposed to physical therapy reporting that she will require rehabilitation placement as she is an unsafe discharge, despite that, patient wishes to go home despite living alone. She denies any shortness of breath, dizziness, chest pain, vomiting, abdominal pain or diarrhea. 03/30/2019 Patient comfortable in bed, notified that PT recommends placement as patient is an unsafe discharge home because she lives alone and is unable to care for self, requires 24-hour care. Patient is adamant that she will not go to rehabilitation, wishes to go home despite not being safe for her. Patient reports no complaints at this time, denies sugars of breath, chest pain, vomiting, abdominal pain or diarrhea. 03/31/2019 Had another discussion with the patient regarding placement and concern for her living alone at home, patient is adamant that she will go home regardless of whether she has any help or not. Discussed the case with addiction social worker who will attempt to arrange home care for the patient for her to be a safe discharge home, patient is agreeable to that. Patient has no other complaints at this time, resting comfortably in bed, doing well with physical therapy, tolerating diet, denies short of breath, chest pain, vomiting, abdominal pain or diarrhea. 10 point review system was negative except for above ALLERGIES: Please see below. HOME MEDICATIONS: Please see below. PHYSICAL EXAMINATION: VITAL SIGNS: Please see below. GENERAL: No distress HEENT: Normocephalic, atraumatic, moist mucous membranes NECK: Supple CARDIOVASCULAR EXAMINATION: S1, S2, no murmurs RESPIRATORY EXAMINATION: Clear to auscultation ABDOMINAL EXAMINATION: Soft, nontender, nondistended, positive bowel sounds EXTREMITIES: Range of motion intact SKIN: No rash NEUROLOGICAL EXAMINATION: Alert and oriented 3, no focal deficits PSYCHIATRIC EXAMINATION: Calm and cooperative LABORATORY DATA: See below. MICROBIOLOGY: Please see below. ASSESSMENT: 63-year-old female with multiple comorbidities was recently admitted for rib fractures status post fall, returns after 1 day of discharge due to continued pain. . PLAN: 1. Rib fractures. Previous imaging confirms two non-displaced rib fractures Pain resolved, discontinue Percocet Patient failed home safety eval, not safe for her to live alone, patient ref using to go anywhere but home, will arrange for home care/arrange for her daughters to be more involved in her care, so she can be safely discharged home. 2. Adrenal insufficiency. Hypotensive, likely noncompliant with all medication, received IV hydrocortisone in the ED. Continue prednisone 10 mg daily and midodrine 2.5 mg 3 times a day. Continue fludrocortisone 50 g Will monitor blood pressure and electrolytes, will adjust medication as needed. 3. COPD - stable - continue home meds - supplemental O2 as needed to maintain O2 sats ~90% 4. DM - continue metformin - sliding scale insulin w/ fingersticks qAC & HS 5. Small cell lung cancer - reports treatment via port last year DVT prophylaxis: Heparin SubQ GI Prophylaxis: PPI VS, I&O, 24H, Fishbone Vital Signs/I&O Vital Signs Date Time Temp Pulse Resp B/P (MAP) Pulse Ox O2 Delivery O2 Flow Rate FiO2 03/31/19 14:00 97.6 75 18 116/50 (72) 95 03/31/19 06:00 Room Air I&O- Last 24 Hours up to 6 AM 03/31/19 05:59 Intake Total 1150 ml Output Total 1150 ml Balance 0 ml Laboratory Data 24H LABS Laboratory Tests 2 03/30/19 21:35: Bedside Glucose (Misc Panel) 125H 03/31/19 07:55: Nucleated Red Blood Cells % (auto) 0.0, Anion Gap 5L, Glomerular Filtration Rate > 60.0, Calcium Level 8.5L, Phosphorus Level 4.8#, Magnesium Level 1.8, Total Bilirubin 0.6, Aspartate Amino Transf (AST/SGOT) 17, Alanine Aminotransferase (ALT/SGPT) 28, Alkaline Phosphatase 109, Total Protein 6.0L, Albumin 2.7L, Albumin/Globulin Ratio 0.82L 03/31/19 11:41: Bedside Glucose (Misc Panel) 222H CBC/BMP Laboratory Tests 03/31/19 07:55 Microbiology Microbiology 03/27/19 Blood Culture - Preliminary, Resulted No Growth after 72 hours. All specime... DORON LOPEZ MD Mar 31, 2019 17:43
[2019-03-31 21:45] VITALS: BP 86/58
[2019-03-31 22:00] VITALS: BP 80/50
[2019-03-31] MEDS ORDERED: NS 500 ML IV ONE (22:00)
[2019-03-31 23:35] VITALS: BP 104/70
[2019-04-01] MEDS: PERCOCET 5MG/325MG TAB PO SCH (05:43)
[2019-04-01 06:00] VITALS: BP 92/53
[2019-04-01 06:21] LABS: HEMATOCRIT 41.8 % (36.0-47.0); HEMOGLOBIN 14.4 g/dl (12.0-15.5); MEAN CORPUSCULAR HEMOGLOBIN 31.6 pg (27.0-33.0); MEAN CORPUSCULAR HGB CONC 34.4 g/dl (32.0-36.5); MEAN CORPUSCULAR VOLUME 91.9 fl (80.0-96.0); PLATELET COUNT, AUTOMATED 293 10^3/uL (150-450); RED BLOOD COUNT 4.55 10^6/uL (4.00-5.40); WHITE BLOOD COUNT 24.3 10^3/uL (4.0-10.0)
[2019-04-01 06:54] LABS: BLOOD UREA NITROGEN 16 MG/DL (7-18); CALCIUM LEVEL 8.5 MG/DL (8.8-10.2); CARBON DIOXIDE LEVEL 30 MEQ/L (21-32); CHLORIDE LEVEL 97 MEQ/L (98-107); CREATININE FOR GFR 0.49 MG/DL (0.55-1.30); GLOMERULAR FILTRATION RATE > 60.0 (>45); GLUCOSE, FASTING 77 MG/DL (70-100); MAGNESIUM LEVEL 1.9 MG/DL (1.8-2.4); PHOSPHORUS LEVEL 4.3 MG/DL (2.5-4.9); POTASSIUM SERUM 4.4 MEQ/L (3.5-5.1); SODIUM LEVEL 133 MEQ/L (136-145)
[2019-04-01] MEDS: HumaLOG INSULIN (NovoLOG) PER UNIT SC SCH ×4 (07:11→21:00)
[2019-04-01] MEDS: FOLIC ACID 1 MG TAB PO SCH (08:16)
[2019-04-01] MEDS: THIAMINE 100 MG TAB PO SCH (08:16)
[2019-04-01] MEDS: CitaloPRAM (CeleXA) 10 MG TABLET PO SCH (08:16)
[2019-04-01] MEDS: CLOPIDOGREL 75 MG TAB PO SCH (08:16)
[2019-04-01] MEDS: MIDODRINE 2.5 MG TAB PO SCH ×3 (08:16→16:05)
[2019-04-01] MEDS: ATORVASTATIN 20 MG TAB PO SCH (08:16)
[2019-04-01] MEDS: ASPIRIN 81 MG ENTERIC TAB PO SCH (08:16)
[2019-04-01] MEDS: metFORMIN XR 500MG TAB *GLUCOPHAGE XR PO SCH (08:16)
[2019-04-01] MEDS: MAGNESIUM CHLORIDE 64 MG TABCR (SLO MAG) PO SCH ×3 (08:16→21:01)
[2019-04-01] MEDS: FLUDROCORTISONE ACETATE 0.1 MG TAB PO SCH (08:17)
[2019-04-01] MEDS: predniSONE 20 MG TAB PO SCH (08:17)
[2019-04-01] MEDS: HEPARIN SOD (PORCINE) 5000 UNITS/ML VIAL SC SCH ×2 (08:19→21:02)
--- NOTE | 2019-04-01 11:00 | IPNPDOC ---
Date Seen The patient was seen on 04/01/19. Progress Note HISTORY OF PRESENT ILLNESS: 61-year-old female with past medical history of diabetes, COPD, small cell lung cancer, adrenal insufficiency was admitted one week ago for rib fractures status post mechanical fall, discharge yesterday, returns with continued rib pain. She reports that pain was well controlled during hospitalization, was not sent home on a pain medication, returns due to moderate to severe pain. She reports significant improvement and in pain after getting pain medication in the ED. She has no other associated symptoms; she denies any shortness of breath, chest pain, nausea, vomiting, diarrhea, constipation, abdominal pain at this time. She was noted to be hypotensive in the ED, history of edema and insufficiency, poorly managed due to medication noncompliance, received IV hydrocortisone in the ED. 03/28/2019 Patient without any complaints, reports significant improvement in rib pain, currently pain-free, wishing to go home. Patient was evaluated by physical therapy, unsafe for discharge home, will require rehabilitation/placement eval. She denies any shortness of breath, chest pain, nausea, vomiting or abdominal pain at this time. 03/29/2019 Patient comfortable in bed, without any complaints, reports that she is doing well with activity and physical therapy as opposed to physical therapy reporting that she will require rehabilitation placement as she is an unsafe discharge, despite that, patient wishes to go home despite living alone. She denies any shortness of breath, dizziness, chest pain, vomiting, abdominal pain or diarrhea. 03/30/2019 Patient comfortable in bed, notified that PT recommends placement as patient is an unsafe discharge home because she lives alone and is unable to care for self, requires 24-hour care. Patient is adamant that she will not go to rehabilitation, wishes to go home despite not being safe for her. Patient reports no complaints at this time, denies sugars of breath, chest pain, vomiting, abdominal pain or diarrhea. 03/31/2019 Had another discussion with the patient regarding placement and concern for her living alone at home, patient is adamant that she will go home regardless of whether she has any help or not. Discussed the case with manager social media who will attempt to arrange home care for the patient for her to be a safe discharge home, patient is agreeable to that. Patient has no other complaints at this time, resting comfortably in bed, doing well with physical therapy, tolerating diet, denies short of breath, chest pain, vomiting, abdominal pain or diarrhea. 04/01/2019 Patient required 500 mL normal saline bolus overnight for hypotension, patient was asymptomatic throughout the episode, likely due to underlying chronic hypotension from adrenal insufficiency. Patient is currently comfortable in bed, eating breakfast, without any complaints, wishing to go home. 10 point review system was negative except for above ALLERGIES: Please see below. HOME MEDICATIONS: Please see below. PHYSICAL EXAMINATION: VITAL SIGNS: Please see below. GENERAL: No distress HEENT: Normocephalic, atraumatic, moist mucous membranes NECK: Supple CARDIOVASCULAR EXAMINATION: S1, S2, no murmurs RESPIRATORY EXAMINATION: Clear to auscultation ABDOMINAL EXAMINATION: Soft, nontender, nondistended, positive bowel sounds EXTREMITIES: Range of motion intact SKIN: No rash NEUROLOGICAL EXAMINATION: Alert and oriented 3, no focal deficits PSYCHIATRIC EXAMINATION: Calm and cooperative LABORATORY DATA: See below. MICROBIOLOGY: Please see below. ASSESSMENT: 63-year-old female with multiple comorbidities was recently admitted for rib fractures status post fall, returns after 1 day of discharge due to continued pain. . PLAN: 1. Rib fractures. Previous imaging confirms two non-displaced rib fractures Pain resolved, discontinue Percocet Patient failed home safety eval, not safe for her to live alone, patient refusing to go anywhere but home, will arrange for home care/arrange for her daughters to be more involved in her care so she can be safely discharged home. 2. Adrenal insufficiency. Hypotensive, likely noncompliant with all medication, received IV hydrocortisone in the ED. Continue prednisone 10 mg daily and midodrine 2.5 mg 3 times a day. Continue fludrocortisone 50 g Will titrate medication based on blood pressure, symptoms, labs. 3. COPD - stable - continue home meds - supplemental O2 as needed to maintain O2 sats ~90% 4. DM - continue metformin - sliding scale insulin w/ fingersticks qAC & HS 5. Small cell lung cancer - reports treatment via port last year DVT prophylaxis: Heparin SubQ GI Prophylaxis: PPI VS, I&O, 24H, Fishbone Vital Signs/I&O Vital Signs Date Time Temp Pulse Resp B/P (MAP) Pulse Ox O2 Delivery O2 Flow Rate FiO2 04/01/19 06:13 20 Room Air 04/01/19 06:00 97.1 91 92/53 (66) 92 I&O- Last 24 Hours up to 6 AM 04/01/19 06:00 Intake Total 2816 ml Output Total 2300 ml Balance 516 ml Laboratory Data 24H LABS Laboratory Tests 2 03/31/19 11:41: Bedside Glucose (Misc Panel) 222H 03/31/19 20:07: Bedside Glucose (Misc Panel) 136H 04/01/19 05:46: Nucleated Red Blood Cells % (auto) 0.0, Anion Gap 6L, Glomerular Filtration Rate > 60.0, Calcium Level 8.5L, Phosphorus Level 4.3, Magnesium Level 1.9 CBC/BMP Laboratory Tests 04/01/19 05:46 Microbiology Microbiology 03/27/19 Blood Culture - Preliminary, Resulted No Growth after 72 hours. All specime... DORON LOPEZ MD Apr 01, 2019 11:00
[2019-04-01 14:00] VITALS: BP 102/53
[2019-04-01 22:00] VITALS: BP 90/60
[2019-04-02 06:00] VITALS: BP 105/69
[2019-04-02 06:21] LABS: HEMATOCRIT 40.7 % (36.0-47.0); HEMOGLOBIN 13.8 g/dl (12.0-15.5); MEAN CORPUSCULAR HEMOGLOBIN 31.2 pg (27.0-33.0); MEAN CORPUSCULAR HGB CONC 33.9 g/dl (32.0-36.5); MEAN CORPUSCULAR VOLUME 92.1 fl (80.0-96.0); PLATELET COUNT, AUTOMATED 291 10^3/uL (150-450); RED BLOOD COUNT 4.42 10^6/uL (4.00-5.40); WHITE BLOOD COUNT 24.8 10^3/uL (4.0-10.0)
[2019-04-02 06:47] LABS: BLOOD UREA NITROGEN 16 MG/DL (7-18); CALCIUM LEVEL 8.2 MG/DL (8.8-10.2); CARBON DIOXIDE LEVEL 29 MEQ/L (21-32); CHLORIDE LEVEL 99 MEQ/L (98-107); CREATININE FOR GFR 0.47 MG/DL (0.55-1.30); GLOMERULAR FILTRATION RATE > 60.0 (>45); GLUCOSE, FASTING 86 MG/DL (70-100); MAGNESIUM LEVEL 1.8 MG/DL (1.8-2.4); PHOSPHORUS LEVEL 4.3 MG/DL (2.5-4.9); POTASSIUM SERUM 3.8 MEQ/L (3.5-5.1); SODIUM LEVEL 135 MEQ/L (136-145)
[2019-04-02] MEDS: HumaLOG INSULIN (NovoLOG) PER UNIT SC SCH ×2 (07:30→12:26)
[2019-04-02] MEDS ORDERED: MAG SULF 1GM/100ML (MAG RUN) 1 GM in IV 1 EA IV ONE (09:00)
[2019-04-02] MEDS ORDERED: POTASSIUM CHLORIDE 10 MEQ SR TABLET PO ONE (09:00)
[2019-04-02] MEDS: MAGNESIUM CHLORIDE 64 MG TABCR (SLO MAG) PO SCH (09:33)
[2019-04-02] MEDS: FLUDROCORTISONE ACETATE 0.1 MG TAB PO SCH (09:34)
[2019-04-02] MEDS: HEPARIN SOD (PORCINE) 5000 UNITS/ML VIAL SC SCH (09:35)
[2019-04-02] MEDS: THIAMINE 100 MG TAB PO SCH (09:35)
[2019-04-02] MEDS: FOLIC ACID 1 MG TAB PO SCH (09:35)
[2019-04-02] MEDS: ATORVASTATIN 20 MG TAB PO SCH (09:35)
[2019-04-02] MEDS: CLOPIDOGREL 75 MG TAB PO SCH (09:36)
[2019-04-02] MEDS: ASPIRIN 81 MG ENTERIC TAB PO SCH (09:36)
[2019-04-02] MEDS: predniSONE 20 MG TAB PO SCH (09:36)
[2019-04-02] MEDS: metFORMIN XR 500MG TAB *GLUCOPHAGE XR PO SCH (09:36)
[2019-04-02] MEDS: CitaloPRAM (CeleXA) 10 MG TABLET PO SCH (09:36)
[2019-04-02] MEDS: MIDODRINE 2.5 MG TAB PO SCH ×2 (09:36→12:25)
[2019-04-02] MEDS ORDERED: PRED20TA PO (12:23)
[2019-04-02] MEDS ORDERED: MIDO2.5T PO (12:23)
[2019-04-02] MEDS ORDERED: FLUD0.1T PO (12:23)
--- NOTE | 2019-04-02 12:30 | DS.PDOC ---
Discharge Summary General Date of Admission Mar 29, 2019 at 11:10 Date of Discharge 04/02/2019 Attending Physician: DORON LOPEZ MD Discharge Summary PROCEDURES PERFORMED DURING STAY: None. ADMITTING DIAGNOSES: 1. Rib pain. DISCHARGE DIAGNOSES: 1. Rib pain, physical deconditioning, adrenal insufficiency. COMPLICATIONS/CHIEF COMPLAINT: Adrenal Insufficiency,Copd,Diabetes Mellitus,. HISTORY OF PRESENT ILLNESS: 63-year-old female with past medical history of COPD, diabetes, adrenal insufficiency and recent nondisplaced rib fractures, was readmitted for persistent rib pain. She was treated with Percocet with complete resolution of pain after couple of days she has been pain-free for at least 48 hours. Her hospitalization was prolonged because she was an unsafe discharge after physical therapy evaluation. She does not have any help at home, lives alone, and daughters are unable to provide much support, social work, is able to arrange home visiting care. The patient is agreeable with that plan. Patient was offered placement into a facility, but she adamantly refused and was willing to leave [place] if she had to. Her medications for adrenal insufficiency were readjus estelita, steroid dose decreased and fludrocortisone to dose was also decreased, switched to hydrocortisone to prednisone because of once daily dose to improve compliance. Her midodrine dose was also decreased from 5 mg 3 times a day to 2.5 million 3 times a day based on her blood pressures during his hospitalization; patient's blood pressure is naturally low, but she remains asymptomatic. Patient is strongly advised to follow up with endocrinology and PCP as soon as possible, patient agrees. Patient is hemodynamically stable for discharge.. HOSPITAL COURSE: As above DISCHARGE MEDICATIONS: Please see below. ALLERGIES: Please see below. PHYSICAL EXAMINATION: VITAL SIGNS: Please see below. GENERAL: No distress, frail HEENT: Normocephalic, atraumatic, moist mucous membranes NECK: Supple CARDIOVASCULAR EXAMINATION: S1, S2, no murmurs RESPIRATORY EXAMINATION: Clear to auscultation, no wheezing ABDOMINAL EXAMINATION: Soft, nontender, nondistended, positive bowel sounds EXTREMITIES: Range of motion intact SKIN: No rash NEUROLOGICAL EXAMINATION: Alert and oriented 3, no focal deficits PSYCHIATRIC EXAMINATION: Calm and cooperative LABORATORY DATA: Please see below. PROGNOSIS: Guarded ACTIVITY: As tolerated. DIET:. Cardiac with consistent carbs DISCHARGE PLAN:. Please follow up with organ tuner and PCP was in 1 week. DISPOSITION: . Home with home services DISCHARGE INSTRUCTIONS: 1. As above. DISCHARGE CONDITION: Stable. TIME SPENT ON DISCHARGE: Greater than 37 minutes. Vital Signs/I&Os Vital Signs Date Time Temp Pulse Resp B/P (MAP) Pulse Ox O2 Delivery O2 Flow Rate FiO2 04/02/19 06:00 98.1 104 20 105/69 (81) 92 Room Air I&O- Last 24 Hours up to 6 AM 04/02/19 06:00 Intake Total 1840 ml Output Total 1500 ml Balance 340 ml Laboratory Data Labs 24H Laboratory Tests 2 04/02/19 05:38: Nucleated Red Blood Cells % (auto) 0.0, Anion Gap 7L, Glomerular Filtration Rate > 60.0, Calcium Level 8.2L, Phosphorus Level 4.3, Magnesium Level 1.8 CBC/BMP Laboratory Tests 04/02/19 05:38 Microbiology Microbiology 03/27/19 Blood Culture - Final, Complete NO GROWTH AFTER 5 DAYS Discharge Medications Scheduled Aspirin (Aspirin EC) 81 Mg Tablet.dr, 81 MG PO DAILY, (Reported) Atorvastatin Calcium (Atorvastatin Calcium) 20 Mg Tablet, 40 MG PO DAILY, (Reported) Citalopram Hydrobromide (Celexa) 10 Mg Tablet, 10 MG PO DAILY, (Reported) Clopidogrel Bisulfate (Plavix) 75 Mg Tablet, 75 MG PO DAILY, (Reported) Fludrocortisone Acetate (Fludrocortisone Acetate) 0.1 Mg Tablet, 0.05 MG PO ALEKS Y Folic Acid (Folic Acid) 1 Mg Tablet, 1 MG PO DAILY, (Reported) Magnesium Chloride (Mag64) 64 Mg Tablet.dr, 64 MG PO TID, (Reported) Metformin HCl (Metformin HCl ER) 500 Mg Tab.er.24h, 500 MG PO DAILY, (Reported) Midodrine HCl (Midodrine HCl) 2.5 Mg Tablet, 2.5 MG PO TID@0800,1200,1600 Multivitamin (Multivitamins) 1 Each Tablet, 1 TAB PO DAILY, (Reported) Prednisone (Prednisone) 20 Mg Tablet, 10 MG PO DAILY Thiamine HCl (Thiamine HCl) 100 Mg Tablet, 100 MG PO DAILY, (Reported) Scheduled PRN Albuterol Sulfate (Ventolin Hfa) 18 Gm Hfa.aer.ad, 2 PUFF INH Q6H PRN for SHORTNESS OF BREATH, (Reported) Allergies Coded Allergies: No Known Allergies (Unverified , 03/27/19) DORON LOPEZ MD Apr 02, 2019 12:30
[2019-04-02 14:00] VITALS: BP 110/65
[2019-04-03] MEDS ORDERED: FLUD0.1T PO (13:47)
[2019-04-03] MEDS ORDERED: MIDO2.5T PO (13:47)
[2019-04-03] MEDS ORDERED: PRED10TA2 PO (13:47)
== END 2019-04-02 18:02 | disposition home health service (06) | DRG 861 ==
LOC: M ED 05:07 → M ED INP 05:08 → M MSPAV 14:19 → OBSVTOIN 03-29 11:10
PROVIDERS: ADMIT Internal Medicine; ATTEND Internal Medicine
DX: G89.11 Acute pain due to trauma (principal); S22.41XA Multiple fractures of ribs, right side, initial encounter for closed fracture; I95.89 Other hypotension; E27.40 Unspecified adrenocortical insufficiency; E11.9 Type 2 diabetes mellitus without complications; J44.9 Chronic obstructive pulmonary disease, unspecified; Z85.118 Personal history of other malignant neoplasm of bronchus and lung; N28.89 Other specified disorders of kidney and ureter; F17.200 Nicotine dependence, unspecified, uncomplicated; W19.XXXA Unspecified fall, initial encounter; Y92.9 Unspecified place or not applicable; Z91.14 Patient's other noncompliance with medication regimen; Z79.82 Long term (current) use of aspirin; Z79.02 Long term (current) use of antithrombotics/antiplatelets; Z79.84 Long term (current) use of oral hypoglycemic drugs; Z79.899 Other long term (current) drug therapy

== ENCOUNTER 2019-04-03 10:02 | Inpatient (IN) | payer OTHER ==
[~2019-04-03] VITALS: Ht 154.9 cm; Wt 44.5 kg
[~2019-04-03 10:02] MED LIST changes: +HYDR20TA17 PO; +MIDO5TA PO; +PERCOCET PO; +PRED20TA PO
[2019-04-03] MEDS ORDERED: NS 1,000 ML IV ONE ×2 (10:45→12:45)
[2019-04-03] MEDS ORDERED: MIDODRINE 2.5 MG TAB PO ONE (10:45)
[2019-04-03 11:01] LABS: BASO # 0.1 10^3/uL (0.0-0.2); BASO % 0.5 % (0.0-1.0); EOS # 0.1 10^3/uL (0.0-0.5); EOS % 0.3 % (0.0-3.0); HEMATOCRIT 44.8 % (36.0-47.0); HEMOGLOBIN 15.6 g/dl (12.0-15.5); LYMPH # 3.7 10^3/uL (1.5-5.0); LYMPH % 14.2 % (24.0-44.0); MEAN CORPUSCULAR HEMOGLOBIN 32.3 pg (27.0-33.0); MEAN CORPUSCULAR HGB CONC 34.8 g/dl (32.0-36.5); MEAN CORPUSCULAR VOLUME 92.8 fl (80.0-96.0); MONO % 7.9 % (0.0-5.0); NEUTROPHILS # 19.1 10^3/uL (1.5-8.5); NEUTROPHILS % 74.6 % (36.0-66.0); PLATELET COUNT, AUTOMATED 276 10^3/uL (150-450); RED BLOOD COUNT 4.83 10^6/uL (4.00-5.40); WHITE BLOOD COUNT 25.7 10^3/uL (4.0-10.0)
--- NOTE | 2019-04-03 11:09 | REP ---
Single view chest: 04/03/2019. Indication: Dyspnea. Comparison: 03/23/2019. Findings: Left-sided Port-A-Cath is unchanged in position. The lungs are clear. There is no pleural effusion or pneumothorax. Likely fibrotic changes of the medial apices are stable. Right sixth and seventh rib fractures are redemonstrated. Impression: Clear lungs. Electronically Signed by Jamaal Gallagher DO 04/03/2019 11:00 A
[2019-04-03 11:12] LABS: INR 0.97; PARTIAL THROMBOPLASTIN TIME 25.4 SECONDS (25.0-38.4); PROTHROMBIN TIME 12.6 SECONDS (11.8-14.0)
[2019-04-03] MEDS ORDERED: IPRATROPIUM 0.5MG/ALBUTEROL 2.5MG INH SOL UD 3ML (DUONEB)(J7620) NEB ONE (11:15)
[2019-04-03 11:30] LABS: ALBUMIN 3.3 GM/DL (3.2-5.2); ALT/SGPT 27 U/L (12-78); AMYLASE 67 U/L (25-115); BILIRUBIN,DIRECT 0.3 MG/DL (0.0-0.2); CK-MB VALUE MASS 2.8 NG/ML (<3.6); CPK CREATINE PHOSPHOKINASE 96 U/L (26-192); LIPASE 153 U/L (73-393); MB/CK RELATIVE INDEX 2.92 (< OR =4); TOTAL PROTEIN 6.9 GM/DL (6.4-8.2); TROPONIN I < 0.02 NG/ML (< 0.10)
[2019-04-03 11:31] LABS: INFLUENZA A AMPLIFICATION NEGATIVE (NEGATIVE); INFLUENZA B AMPLIFICATION NEGATIVE (NEGATIVE)
[2019-04-03] MEDS: HYDROCORTISONE 100 MG/2 ML VIAL (J1720 PER 1) IV SCH ×3 (12:00→23:39)
[2019-04-03 12:17] LABS: BLOOD UREA NITROGEN 14 MG/DL (7-18); CALCIUM LEVEL 9.3 MG/DL (8.8-10.2); CARBON DIOXIDE LEVEL 30 MEQ/L (21-32); CHLORIDE LEVEL 94 MEQ/L (98-107); CREATININE FOR GFR 0.49 MG/DL (0.55-1.30); ETHYL ALCOHOL (ETHANOL) < 0.003 % (0.000-0.010); GLOMERULAR FILTRATION RATE > 60.0 (>45); GLUCOSE, FASTING 74 MG/DL (70-100); POTASSIUM SERUM 4.3 MEQ/L (3.5-5.1); SODIUM LEVEL 131 MEQ/L (136-145)
[2019-04-03] MEDS ORDERED: HYDROCORTISONE 100 MG/2 ML VIAL (J1720 PER 1) IV ONE (13:15)
[2019-04-03] MEDS ORDERED: PRED10TA2 PO (13:47)
[2019-04-03] MEDS ORDERED: MIDO2.5T PO (13:47)
[2019-04-03] MEDS ORDERED: FLUD0.1T PO (13:47)
[2019-04-03] MEDS ORDERED: ALBUTEROL 90 MCG/ACT 8GM HFA INHALER INH PRN (14:00)
[2019-04-03] MEDS ORDERED: ACETAMINOPHEN TAB 650MG DOSE (2X325MG) PO PRN (14:00)
--- NOTE | 2019-04-03 14:31 | HPEPDOC ---
General Date of Admission 04/03/19 Date of Service: Apr 03, 2019 Primary Care Physician: THAI SMART DO Attending Physician: MARIA DE JESUS COSTA DO Chief Complaint The patient is a 63-year-old female admitted with a reason for visit of Gen Med Complaint. Source: Patient Exam Limitations: No limitations Timing/Duration: Day(s) Severity: Moderate Associated Symptoms: Hypotension, Dizziness History of Present Illness Patient is 63 years old female with past medical history of small cell lung carcinoma diagnosed in August 2016 in her right upper lobe, noncompliant to treatment and she lost follow-up, COPD, adrenal insufficiency, schizophrenia, chronic hypertension, polyarthritis, tobacco abuse, presented to the hospital with low blood pressure around 70/40 and dizziness. Patient was recently discharged from the hospital where she was admitted for adrenal crisis. Patient was not compliant with her medications. Patient was discharged on the hydrocortisone 60 mg in the morning and 20 mg in the evening and fludrocortisone 0.1 mg. Subsequently, the dose of fludrocortisone was decreased to 0.05, and hydrocortisone was changed to prednisone 10 mg. Today, visiting nurse found that patient had low blood pressure and had dizziness. In emergency room patient was found to have low blood pressure of 70/40, lactic acid of 1.7, glucose level of 74, sodium level of 131, potassium 4.3, white blood count of 25.7. Patient is afebrile. Chest x-ray showed clear lungs,not acute right ribs fractures 6 and 7. Home Medications Scheduled Aspirin (Aspirin EC) 81 Mg Tablet.dr, 81 MG PO DAILY, (Reported) Atorvastatin Calcium (Atorvastatin Calcium) 20 Mg Tablet, 40 MG PO DAILY, (Reported) Citalopram Hydrobromide (Celexa) 10 Mg Tablet, 10 MG PO DAILY, (Reported) Clopidogrel Bisulfate (Plavix) 75 Mg Tablet, 75 MG PO DAILY, (Reported) Fludrocortisone Acetate (Fludrocortisone Acetate) 0.1 Mg Tablet, 0.05 MG PO QPM, (Reported) Folic Acid (Folic Acid) 1 Mg Tablet, 1 MG PO DAILY, (Reported) Magnesium Chloride (Mag64) 64 Mg Tablet.dr, 64 MG PO TID, (Reported) Metformin HCl (Metformin HCl ER) 500 Mg Tab.er.24h, 500 MG PO DAILY, (Reported) Midodrine HCl (Midodrine HCl) 2.5 Mg Tablet, 2.5 MG PO TID, (Reported) Multivitamin (Multivitamins) 1 Each Tablet, 1 TAB PO DAILY, (Reported) Prednisone (Prednisone) 10 Mg Tablet, 10 MG PO DAILY, (Reported) Thiamine HCl (Thiamine HCl) 100 Mg Tablet, 100 MG PO DAILY, (Reported) Scheduled PRN Albuterol Sulfate (Ventolin Hfa) 18 Gm Hfa.aer.ad, 2 PUFF INH Q6H PRN for SHORT NESS OF BREATH, (Reported) Allergies Coded Allergies: No Known Allergies (Unverified , 03/27/19) Past Medical History Medical History small cell lung carcinoma diagnosed in August 2016 in her right upper lobe, nonco mpliant to treatment and she lost follow-up, COPD, adrenal insufficiency, schizophrenia, chronic hypertension, polyarthritis, tobacco abuse, EtOH abuse Family History I reviewed medical history from previous records and found not pertinent Social History * Smoker: current smoker Alcohol: sober Drugs: denies Psychosocial History: Schizophrenia A-FIB/CHADSVASC A-FIB History Current/History of A-Fib/PAF?: No Current PO Anticoag Therapy: No Review of Systems Constitutional: Reports: Weakness; Denies: Chills, Fever Eyes: Denies: Pain, Vision change ENT: Denies: Head Aches, Ear Pain Skin: Denies: Rash, Lesions Pulmonary: Denies: Dyspnea, Cough Cardiovascular: Reports: Other Symptoms (dizziness, hypotension); Denies: Chest Pain, Palpitations Gastrointestinal: Denies: Nausea, Vomiting Genitourinary: Denies: Dysuria, Frequency Hematologic: Denies: Bruising, Bleeding Excessively Endocrine: Denies: Polydipsia, Polyphagia Musculoskeletal: Denies: Neck Pain, Back Pain Neurological: Denies: Weakness, Numbness Psych: Reports: Mood Normal, Other Psych Physical Examination General Exam: Positive: Alert, Cooperative, Other (flat affect) Eye Exam: Positive: PERRLA, Conjunctiva & lids normal ENT Exam: Positive: Atraumatic Neck Exam: Positive: Supple; Negative: JVD Chest Exam: Positive: Clear to auscultation, Other (crackles bilaterally) Heart Exam: Positive: Rate Normal Telemetry: Positive: No significant arrhythmia Abdomen Exam: Positive: Normal bowel sounds Extremity Exam: Negative: Clubbing, Cyanosis Skin Exam: Positive: Nl turgor and temperature Neuro Exam: Positive: Strength at 5/5 X4 ext, Cranial Nerves 3-12 NL Psych Exam: Positive: Oriented x 3 Vital Signs Vital Signs Date Time Temp Pulse Resp B/P (MAP) Pulse Ox O2 Delivery O2 Flow Rate FiO2 04/03/19 12:01 86 91/56 (68) 96 04/03/19 10:16 99.7 20 Room Air Laboratory Data Labs 24H Laboratory Tests 2 04/03/19 10:50: Immature Granulocyte % (Auto) 2.5, Neutrophils (%) (Auto) 74.6H, Lymphocytes (%) (Auto) 14.2L, Monocytes (%) (Auto) 7.9H, Eosinophils (%) (Auto) 0.3, Basophils (%) (Auto) 0.5, Neutrophils # (Auto) 19.1H, Lymphocytes # (Auto) 3.7, Monocytes # (Auto) 2.0H, Eosinophils # (Auto) 0.1, Basophils # (Auto) 0.1, Nucleated Red Blood Cells % (auto) 0.0, Prothrombin Time 12.6, Prothromb Time International Ratio 0.97, Activated Partial Thromboplast Time 25.4, Anion Gap 7L, Glomerular Filtration Rate > 60.0, Lactic Acid Level 1.7, Calcium Level 9.3, Total Bilirubin 1.0, Direct Bilirubin 0.3H, Aspartate Amino Transf (AST/SGOT) 18, A lanine Aminotransferase (ALT/SGPT) 27, Alkaline Phosphatase 101, Total Creatine Kinase 96, Creatine Kinase MB 2.8, Creatine Kinase MB Relative Index 2.92, Troponin I < 0.02, Total Protein 6.9, Albumin 3.3, Albumin/Globulin Ratio 0.92L, Amylase Level 67, Lipase 153, Ethyl Alcohol Level < 0.003, Influenza Type A (RT- PCR) NEGATIVE, Influenza Type B (RT-PCR) NEGATIVE CBC/BMP Laboratory Tests 04/03/19 10:50 Microbiology Microbiology 04/03/19 Blood Culture, Received Pending 04/03/19 Blood Culture, Received Pending Assessment/Plan Patient is 63 years old female with past medical history of small cell lung ca rcinoma diagnosed in August 2016 in her right upper lobe, noncompliant to treatment and she lost follow-up, COPD, adrenal insufficiency, schizophrenia, chronic hypertension, polyarthritis, tobacco abuse, presented to the hospital with low blood pressure around 70/40 and dizziness. Problems (1) Adrenal insufficiency Status: Acute Problem Text: Patient has a history of noncompliance to medication. Patient does not have obvious source of infection, lungs are clear. Increased leukocytes count most likely secondary to steroid treatment. Patient is afebrile, lactic acid within normal limit She presented with profound hypotension most likely secondary to adrenal crisis There is possibility that taper of steroids was too fast in the outpatient settings Hydrocortisone 100 mg every 6h Fludrocortisone 0.1 (2) Weakness generalized Status: Acute Problem Text: Secondary to adrenal insufficiency (3) Small cell lung cancer, right upper lobe Status: Chronic Problem Text: Follow-up with oncologist in the outpatient settings (4) Diabetes mellitus Status: Chronic Problem Text: Insulin sliding scale Diabetes diet (5) Fracture of ribs, multiple Status: Chronic Problem Text: Patient does not complain of chest pain Pain management when necessary Incentive spirometry Plan / VTE VTE Prophylaxis Ordered?: Yes MARIA DE JESUS COSTA DO Apr 03, 2019 14:31
--- NOTE | 2019-04-03 14:33 | ECGEPIP ---
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
[2019-04-03 16:00] VITALS: BP 99/52
[2019-04-03] MEDS: FOLIC ACID 1 MG TAB PO SCH (17:33)
[2019-04-03] MEDS: CLOPIDOGREL 75 MG TAB PO SCH (17:33)
[2019-04-03] MEDS: MIDODRINE 2.5 MG TAB PO SCH ×2 (17:33→20:02)
[2019-04-03] MEDS: THIAMINE 100 MG TAB PO SCH (17:33)
[2019-04-03] MEDS: ASPIRIN 81 MG ENTERIC TAB PO SCH (17:33)
[2019-04-03] MEDS: ATORVASTATIN 20 MG TAB PO SCH (17:33)
[2019-04-03] MEDS: CitaloPRAM (CeleXA) 10 MG TABLET PO SCH (17:34)
[2019-04-03] MEDS: MAGNESIUM CHLORIDE 64 MG TABCR (SLO MAG) PO SCH ×2 (17:34→20:02)
[2019-04-03] MEDS: FLUDROCORTISONE ACETATE 0.1 MG TAB PO SCH (17:34)
[2019-04-03 20:00] VITALS: BP 85/53
[2019-04-03] MEDS: HEPARIN SOD (PORCINE) 5000 UNITS/ML VIAL SC SCH (20:03)
[2019-04-03] MEDS: DOCUSATE SODIUM 100 MG CAP PO SCH (20:03)
[2019-04-03] MEDS: SLF 3 ML SYR IV SCH (20:03)
[2019-04-03 20:15] VITALS: BP 85/52
[2019-04-03] MEDS ORDERED: FLUDROCORTISONE ACETATE 0.1 MG TAB PO SCH (21:00)
[2019-04-04] VITALS (64 sets, daily range): BP systolic 63–126; BP diastolic 48–88
[2019-04-04] MEDS: SLF 3 ML SYR IV SCH ×3 (02:40→22:02)
[2019-04-04] MEDS: HYDROCORTISONE 100 MG/2 ML VIAL (J1720 PER 1) IV SCH ×3 (05:15→20:45)
[2019-04-04 05:41] LABS: HEMATOCRIT 40.8 % (36.0-47.0); HEMOGLOBIN 13.9 g/dl (12.0-15.5); MEAN CORPUSCULAR HEMOGLOBIN 31.2 pg (27.0-33.0); MEAN CORPUSCULAR HGB CONC 34.1 g/dl (32.0-36.5); MEAN CORPUSCULAR VOLUME 91.5 fl (80.0-96.0); PLATELET COUNT, AUTOMATED 267 10^3/uL (150-450); RED BLOOD COUNT 4.46 10^6/uL (4.00-5.40); WHITE BLOOD COUNT 21.8 10^3/uL (4.0-10.0)
[2019-04-04 06:09] LABS: ALBUMIN 2.8 GM/DL (3.2-5.2); ALT/SGPT 25 U/L (12-78); BILIRUBIN,TOTAL 0.7 MG/DL (0.2-1.0); BLOOD UREA NITROGEN 16 MG/DL (7-18); CALCIUM LEVEL 8.5 MG/DL (8.8-10.2); CARBON DIOXIDE LEVEL 28 MEQ/L (21-32); CHLORIDE LEVEL 100 MEQ/L (98-107); CREATININE FOR GFR 0.43 MG/DL (0.55-1.30); GLOMERULAR FILTRATION RATE > 60.0 (>45); GLUCOSE, FASTING 139 MG/DL (70-100); POTASSIUM SERUM 3.7 MEQ/L (3.5-5.1); SODIUM LEVEL 134 MEQ/L (136-145); TOTAL PROTEIN 6.4 GM/DL (6.4-8.2)
[2019-04-04] MEDS ORDERED: GLUCOSE 4 GM CHEW TABLET PO PRN (07:15)
[2019-04-04] MEDS ORDERED: GLUCAGON FOR INJ 1 MG VIAL (J1610) SC PRN (07:15)
[2019-04-04] MEDS ORDERED: DEXTROSE 50% 50 ML SYRINGE IV PRN (07:15)
[2019-04-04] MEDS: HumaLOG INSULIN (NovoLOG) PER UNIT SC SCH ×4 (10:01→22:02)
[2019-04-04] MEDS: MIDODRINE 2.5 MG TAB PO SCH ×3 (10:02→20:44)
[2019-04-04] MEDS: HEPARIN SOD (PORCINE) 5000 UNITS/ML VIAL SC SCH ×2 (10:53→20:44)
[2019-04-04] MEDS: MAGNESIUM CHLORIDE 64 MG TABCR (SLO MAG) PO SCH ×3 (10:53→20:44)
[2019-04-04] MEDS: ATORVASTATIN 20 MG TAB PO SCH (10:54)
[2019-04-04] MEDS: FOLIC ACID 1 MG TAB PO SCH (10:54)
[2019-04-04] MEDS: FLUDROCORTISONE ACETATE 0.1 MG TAB PO SCH (10:54)
[2019-04-04] MEDS: CitaloPRAM (CeleXA) 10 MG TABLET PO SCH (10:54)
[2019-04-04] MEDS: ASPIRIN 81 MG ENTERIC TAB PO SCH (10:54)
[2019-04-04] MEDS: CLOPIDOGREL 75 MG TAB PO SCH (10:54)
[2019-04-04] MEDS: THIAMINE 100 MG TAB PO SCH (10:54)
[2019-04-04] MEDS: DOCUSATE SODIUM 100 MG CAP PO SCH ×2 (10:54→20:44)
--- NOTE | 2019-04-04 11:37 | IPNPDOC ---
Text Note Date of Service The patient was seen on 04/04/19. NOTE Subjective: No any acute events overnight. Patient denies fever, chills, nausea, vomiting, shortness of breath, palpitations diarrhea or dysuria Objective: General Exam: Positive: Alert, Cooperative, Other (flat affect) Eye Exam: Positive: PERRLA, Conjunctiva & lids normal ENT Exam: Positive: Atraumatic Neck Exam: Positive: Supple; Negative: JVD Chest Exam: Positive: Clear to auscultation, Other (crackles bilaterally) Heart Exam: Positive: Rate Normal Abdomen Exam: Positive: Normal bowel sounds Extremity Exam: Negative: Clubbing, Cyanosis Skin Exam: Positive: Nl turgor and temperature Neuro Exam: Positive: Strength at 5/5 X4 ext, Cranial Nerves 3-12 NL Assessment/Plan Patient is 63 years old female with past medical history of small cell lung carcinoma diagnosed in August 2016 in her right upper lobe, noncompliant to treatment and she lost follow-up, COPD, adrenal insufficiency, schizophrenia, chronic hypertension, polyarthritis, tobacco abuse, presented to the hospital with low blood pressure around 70/40 and dizziness. Patient was given hydroc ortisone IV and fludrocortisone By Mouth Problems (1) Adrenal insufficiency Status: Acute Problem Text: Patient has a history of noncompliance to medication. Patient does not have obvious source of infection, lungs are clear. Increased leukocytes count most likely secondary to steroid treatment. Patient is afebrile, lactic acid within normal limit She presented with profound hypotension most likely secondary to adrenal crisis There is possibility that taper of steroids was too fast in the outpatient settings Patient doing better today, blood pressure stabilized. I taper down hydrocortisone to hydrocortisone 100 mg twice a day Fludrocortisone 0.1 (2) Weakness generalized Improved Status: Acute Problem Text: Secondary to adrenal insufficiency (3) Small cell lung cancer, right upper lobe Status: Chronic Problem Text: Follow-up with oncologist in the outpatient settings (4) Diabetes mellitus Glucose levels under control Status: Chronic Problem Text: Insulin sliding scale Diabetes diet (5) Fracture of ribs, multiple Status: Chronic Problem Text: Patient does not complain of chest pain Pain management when necessary Incentive spirometry PT/OT evaluation Palliative care encounter VS,Lisa, I+O VS, Lisa, I+O Laboratory Tests 04/04/19 05:10 Vital Signs Date Time Temp Pulse Resp B/P (MAP) Pulse Ox O2 Delivery O2 Flow Rate FiO2 04/04/19 08:00 97.8 88 20 126/86 (99) 94 Room Air I&O- Last 24 Hours up to 6 AM 04/04/19 05:59 Intake Total 2960 ml Balance 2960 ml MARIA DE JESUS COSTA DO Apr 04, 2019 11:37
[2019-04-04] MEDS: NS 1,000 ML IV SCH ×2 (12:46→13:50)
[2019-04-04] MEDS ORDERED: LIDOCAINE 1% MDV 20ML VIAL As Ordered ONE (13:31)
[2019-04-04] MEDS: NOREPINEPHRINE BITARTRATE 8 MG in D5W 492 ML IV SCH (14:03)
--- NOTE | 2019-04-04 14:12 | REP ---
Single view chest: 04/04/2019. Indication: Status post central line placement. Comparison: Yesterday. Findings: Compared to yesterday, the right IJ central line has been placed with the distal tip at the cavoatrial junction. There is no pneumothorax. The study is otherwise stable. Impression: No pneumothorax. Adequately positioned new right central venous catheter. Electronically Signed by Jamaal Gallagher DO 04/04/2019 02:03 P
--- NOTE | 2019-04-04 15:49 | RO ---
DATE OF PROCEDURE: 04/04/2019 PREOPERATIVE DIAGNOSIS: Hypotension. POSTPROCEDURE DIAGNOSIS: Hypotension SURGEON: Dr. Hare GAGGERMAN: OLEG Goodwin PROCEDURE: Right triple lumen catheter. ANESTHESIA: 1% lidocaine. CONSENT: The patient had given written consent for a left internal jugular (IJ) however had difficulty feeding the left IJ because of her [id number], and therefore, converted to a right IJ. The patient did not receive any mind altering sedation during this process and did give oral consent to this. DESCRIPTION OF PROCEDURE: After informed consent was reviewed with the patient, she was placed in the supine position. The left IJ was prepped and draped in a sterile manner. Chlorhexidine, full sterile barrier precautions, lidocaine was used to instill subcutaneously. Jamaal Jenkins was performing in the procedure under my direct supervision. The left IJ was accessed and venous blood returned. However, the wire would not feed through, and therefore, we had difficulty threading the wire likely because of the [id number]. It was determined to switch sides at that point in time. A new sterile kit was obtained. New sterile dressing and new time-out was performed with two patient identifiers identifying correct site and correct procedure. Chlorhexidine and full barrier sterile precautions were used. I then performed the right IJ. The right IJ was identified under ultrasound and subcutaneous lidocaine was then instilled. The [place] syringe was then introduced. Unfortunately, the patient had quite large sternocleidomastoid. I tried to sneak behind the sternocleidomastoid because of the size. The IJ was entered. The wire was fed through the needle. Needle was removed. Dilator was placed. Triple-lumen catheter was then placed via modified Seldinger technique. All three ports returned venous blood flow and flushed easily. This was sutured in 15 cm. Postprocedure chest x-ray shows no pneumothorax and catheter in good position. Sterile impregnated dressing was placed over the site. SHALA
--- NOTE | 2019-04-04 16:33 | CCN ---
DATE OF SERVICE: 04/04/2019 PULMONARY CRITICAL CARE NOTE: We were asked by the medicine team for consultation on Nirali Simmons. Ms. Simmons is a 63-year-old female patient that was admitted on 04/03/2019 for hypotension. The patient is a poor historian and really could not give a very adequate history, therefore, much of her history comes from the history and physical from the medicine team as well as previous notes in her hospital chart. The patient states that she came in the emergency room today, although in further review it was actually yesterday that she came in. She states she does not know why she came in. She states she was told by someone that she needed to go the emergency room. She stated that otherwise she felt that for the most part her health had not changed much. She does note that she is somewhat sleepy today but states overall she feels good. We were called upon by the medicine team because of her hypotension and need of central line placement and transfer to intensive care unit (ICU). The patient does have a history of hypotension and she also has a history of adrenal insufficiency; was hospitalized earlier this month for both after a fall. She states that she does fall on occasion. Other than that she denies any significant issues at home. She states that she takes all of her medications as prescribed. She states she follows with the [facility]. She states that she does not see an control electrician for history of adrenal insufficiency, although again, she is a poor historian. She does have a history of chronic obstructive pulmonary disease (COPD) as well as small cell lung cancer. She has been patient in the past of Dr. Hardy who followed her for those issues. The patient apparently did undergo treatment with chemotherapy and SBRT for the small cell lung cancer sometime around 2017. According to Dr. Hardy's notes as well as the hospitalist note from this admission, the patient was lost to followup and may not have completed all of her chemotherapy or SBRT treatments. Although, the patient denies this stating that she believes that she finished all of her treatments. She does have a history of smoking and claims that she smokes half a pack a day for 44 years, although elsewhere in her notes it did talk about she smoked anywhere from pack to a pack and half a day. She is noted to have had a history of alcohol abuse but the patient states she has not had alcoholic drink in a year. She denies any drug use. For her adrenal insufficiency and hypotension last hospitalization she was apparently discharged home on Florinef and hydrocortisone which was then tapered to prednisone, and according to her outpatient med list she is still on the Florinef and the prednisone. She is also noted to have a history of schizophrenia in her history and physical. However, she denied this to me and states she does not follow with psychiatry. She does appear to lack insight into her medical issues. She knows that she does run a low blood pressure at home and states that this is often around the 80s systolically. REVIEW OF SYSTEMS: Again, review of systems is somewhat incomplete due to the patient's poor history. She does deny fevers, chills, night sweats, unexplained weight loss. HEENT: Denies headaches, double or blurry vision, epistaxis, sore throat. Cardiac: Denies chest pain, palpitations, paroxysmal nocturnal dyspnea (PND). Pulmonary: The patient denies shortness of breath, cough, hemoptysis. Gastrointestinal (GI): The patient denies nausea, vomiting, diarrhea, constipation, abdominal pain, blood in stool. Genitourinary (): The patient denies dysuria. Hematology: The patient denies any bleeding issues or history of blood transfusions. Endocrine: The patient denies hot or cold intolerance. Musculoskeletal: The patient does note that she falls at times but denies any current joint pain or joint swelling. Neurologic: The patient denies seizures or strokes. Skin: The patient denies rashes. PAST MEDICAL HISTORY: 1. Small cell lung cancer right upper lobe treated with four cycles of chemotherapy in 2017, but it is unclear if she finished the chemotherapy treatment. She also had undergone SBRT, but again it is unclear if she completed that. She does not recall where she did the SBRT. 2. Hypotension. 3. Depression. 4. Neuropathy. 5. Hepatosteatosis. 6. Polyarthritis. 7. Diabetes mellitus, type 2. 8. Dyslipidemia. 10. Schizophrenia. 11. Adrenal insufficiency. 12. History of alcohol use. 13. Tobacco use. SOCIAL HISTORY: The patient states that she smokes half a pack of cigarettes a day and has been smoking for 44 years, although other various notes states that she smokes between 1- 1-1/2 packs cigarettes a day. The patient denies any current alcohol use and states that she last drank a year ago. The patient denies any drug use. FAMILY MEDICAL HISTORY: Mother is from myocardial infarction (ME). Father is and had COPD. HOME MEDICATIONS: - aspirin 81 mg daily - atorvastatin 20 mg daily - citalopram 10 mg daily - Plavix 75 mg daily - Florinef (dose is unclear, either 0.1 mg or 0.05 mg, but it is unclear in her med reconciliation) - folic acid 1 mg - magnesium chloride 64 mg three times a day - metformin ER 500 mg daily - midodrine 2.5 mg three times a day - multivitamin daily - prednisone 10 mg daily - thiamine 100 mg daily - albuterol as needed Vital signs: Temperature is 99.5, pulse 94, respiratory rate 18, blood pressure 83/58, pulse oximetry 96% on 2 liters by nasal cannula. General: The patient has a very flat affect and generally answers in one-word answers. She has very poor eye contact. HEENT: Head is normocephalic, atraumatic. Eyes: Pupils equal, round, and reactive to light and accommodation (PERRLA). Extraocular muscles intact (EOMI). Moist mucous membranes. Tongue is midline. Neck: There is a right internal jugular (IJ) line in place. No cervical lymphadenopathy. No jugular venous distention (JVD). Trachea is midline. Cardiac: Regular rate and rhythm. S1, S2. No murmurs. Pulmonary: The patient has scattered wheezing. No accessory muscle use. Enlarged sternocleidomastoid musculature as noted. Abdomen: Positive bowel sounds, soft, nontender. No rebound or guarding. No organomegaly. Extremities: No clubbing, cyanosis or edema. Skin is warm and dry. There is a cystic lesion at the left mid sternum that is nontender to palpation and nonerythematous. Neurologic: Nonfocal grossly. LABORATORY DATA: WBC 21.8, hemoglobin 13.9, hematocrit 40.8, platelet 267. Sodium 134, potassium 3.7, chloride 100, carbon dioxide 28, BUN 16, creatinine 0.43, glucose 139, calcium 8.5, magnesium 2.0, total bilirubin is 0.7, AST is 14, ALT 25, alkaline phosphatase 87, total protein 6.4, albumin 2.8. Lactic acid obtained yesterday was 1.7. INR obtained yesterday was 0.97. Ethyl alcohol obtained yesterday was less than 0.003.Blood culture showed no growth after 24 hours times two. Chest x-ray from 04/03/2019 shows chronic right apical scarring along with a fiducial marker that had previously been placed. Portable chest x-ray done on 04/04/2019 after placement of central line shows the right IJ central line in good positioning. There is still chronic right apical scarring and fiducial marker noted. ASSESSMENT/PLAN: Hypotension. The etiology of the hypotension is somewhat obscure. We will rule out cardiogenic shock with an echocardiogram. An echocardiogram has been ordered and is being done at this time. There is no evidence of pulmonary embolism based on chest CTA from 03/19/2019. There is no neurological impairments or history of neurotrauma. The patient did have a CT of the head on 03/19/2019 that showed no evidence of hemorrhage, mass effect or midline shift. There is no evidence of infectious process and no evidence of hyperperfusion as lactic acid had been normal. There has been no indication of hypovolemia as central venous pressure (CVP) is 13. No evidence of liver failure based on labs. Will continue to evaluate her to determine the cause of the hypotension. DATE: 04/04/2019 ADDENDUM: This patient was brought to the intensive care unit (ICU) with hypotension, apparently chronic in nature. The patient was awake, talking despite a systolic blood pressure of 40. The patient states that she does not feel ill. She has not had any shortness of breath. She ambulates well at home except for has frequent falling because of dizziness, but states that she is not chronically immobile in bed. She states she has not missed any of her medications. She states she does not consume alcohol. According to her history, she has a history of chronic adrenal insufficiency, which seem odd. I do not know the exact cause of the adrenal insufficiency based on the chart and my review. She states she was taking her hydrocortisone and fludrocortisone, however according to the admitting physician her primary had reduced this, however the patient has been here since last night. There is no evidence of infection. Blood cultures have been obtained many times. There is no evidence of cardiogenic shock. The patient appears to have normal jugular venous pulse (JVP) and no significant systemic edema. She appears to be in a normal bulimic state. Mucous membranes are moist. There is no evidence of dehydration. No evidence of septic shock. Normal lactate. The patient recently had a chest CT for the same reason after recent trauma on 03/19/2019. There is no evidence of pulmonary embolism. No evidence of neurogenic shock. The patient did not have any recent severe traumatic brain injury. Had recent imaging of the brain earlier this month. There is no evidence of anaphylactic shock or drug toxin induced shock. Thyroid-stimulating hormone (TSH) has been normal recently, but free T4 has not been check, therefore, will check this currently. There is always a possibility of thyroid disorder especially given her flat affect. Although I do not believe she has cardiogenic shock, she has not had an echocardiogram in some time and will obtain an echocardiogram. It does not appear that she has any sources of bleeding. No evidence of hemorrhagic shock and hemoglobin is 13.9. Although she has a history of hepatosteatosis has no history of true cirrhosis. International normalized ratio (INR) and total bilirubin are normal. She has no evidence of obstructive shock from pulmonary embolism as mentioned above. There is no evidence of cardiac tamponade or constrictive pericarditis. Overall appears fairly well for the severity of the documented hypotension. Central line was placed at bedside. Critical care time was 1 hour and 19 minutes. This excludes all procedures. Will await findings for workup. I believe this is most likely endocrine driven, however quite strange in duration of her hydrocortisone one would think that she actually would have more improved blood pressure at this point in time. Addendum dictated: 04/04/2019 1514 Cedric Hare DO Addendum transcribed: 04/04/2019 1559 kermit LAST
--- NOTE | 2019-04-04 18:10 | ECHO ---
DATE OF PROCEDURE: AGE: 63 GENDER: Female REFERRING PHYSICIAN: Dr. Cedric Hare. HEIGHT: 61 inches. WEIGHT: 97 pounds. BODY SURFACE AREA: 1.39 sq m. INPATIENT: ICU Room 3209 INDICATION: Shock. MEASUREMENTS: 2D MEASUREMENTS: RV - 2.8 cm LV- 4.0 cm Septum - 1.0 cm Posterior wall - 0.9 cm Aortic root: 2.8 cm LA - 3.5 cm LVEF - 75% DOPPLER MEASUREMENTS: AV - 1.2 m/s LVOT - 0.93 m/s LVOT diameter - 1.9 cm MV-E: 96 A: 95 EA ratio 1 Early mitral deceleration time - 155 ms E prime 6.7 A prime 10, E/E prime ratio 14.3 PCWP 17.5 PV 0.8 m/s Pulmonary artery acceleration time - 100 ms PASP - 37 mmHg IVC - 1.6 cm COMMENTS: Normal sinus rhythm without intraventricular conduction disturbance. M-mode and two-dimensional echocardiography was performed with pulsed, continuous wave, color flow and tissue Doppler studies. Normal left ventricular size, wall thickness and hyperkinetic wall motion. With subtle Doppler features to suggest a degree of LV diastolic dysfunction and only mildly elevated estimated mean left atrial pressure. Normal right heart chamber sizes and motion with Doppler sign of mild pulmonary hypertension. Normal IVC size and collapse against an elevated central venous pressure. Subtle aortic valvular sclerosis without functional abnormality. Normal aortic root size. Subtle mitral annular thickening but normal leaflet thickness and excursion with no posterior systolic buckling. Only trace physiological degree of insufficiency. Normal appearing tricuspid valve with trace insufficiency. No apparent intracardiac mass or pericardial effusion. It is unlikely this patient's hypotension / shock is on the basis of a cardiovascular problem.
[2019-04-05] VITALS (41 sets, daily range): BP systolic 67–127; BP diastolic 41–78
[2019-04-05 04:20] LABS: HEMATOCRIT 36.5 % (36.0-47.0); HEMOGLOBIN 12.5 g/dl (12.0-15.5); MEAN CORPUSCULAR HEMOGLOBIN 32.1 pg (27.0-33.0); MEAN CORPUSCULAR HGB CONC 34.2 g/dl (32.0-36.5); MEAN CORPUSCULAR VOLUME 93.8 fl (80.0-96.0); PLATELET COUNT, AUTOMATED 252 10^3/uL (150-450); RED BLOOD COUNT 3.89 10^6/uL (4.00-5.40); WHITE BLOOD COUNT 25.1 10^3/uL (4.0-10.0)
[2019-04-05 04:45] LABS: BLOOD UREA NITROGEN 16 MG/DL (7-18); CALCIUM LEVEL 7.6 MG/DL (8.8-10.2); CARBON DIOXIDE LEVEL 30 MEQ/L (21-32); CHLORIDE LEVEL 102 MEQ/L (98-107); CREATININE FOR GFR 0.51 MG/DL (0.55-1.30); GLOMERULAR FILTRATION RATE > 60.0 (>45); GLUCOSE, FASTING 237 MG/DL (70-100); MAGNESIUM LEVEL 1.6 MG/DL (1.8-2.4); POTASSIUM SERUM 2.9 MEQ/L (3.5-5.1); SODIUM LEVEL 140 MEQ/L (136-145)
[2019-04-05] MEDS ORDERED: KCL 20MEQ IN 100ML SWI (KRUN) 20 MEQ in IV 1 EA IV ONE ×4 (05:00→07:00)
[2019-04-05] MEDS ORDERED: POTASSIUM CHLORIDE 10 MEQ SR TABLET PO ONE ×2 (05:00→13:00)
[2019-04-05] MEDS ORDERED: MAG SULF 1GM/100ML (MAG RUN) 1 GM in IV 1 EA IV ONE (06:00)
[2019-04-05] MEDS: SLF 3 ML SYR IV SCH ×3 (06:20→22:00)
[2019-04-05] MEDS: HYDROCORTISONE 100 MG/2 ML VIAL (J1720 PER 1) IV SCH ×3 (07:40→20:36)
[2019-04-05] MEDS: HumaLOG INSULIN (NovoLOG) PER UNIT SC SCH ×4 (07:40→21:00)
[2019-04-05] MEDS: MAGNESIUM CHLORIDE 64 MG TABCR (SLO MAG) PO SCH ×3 (08:15→20:37)
[2019-04-05] MEDS: HEPARIN SOD (PORCINE) 5000 UNITS/ML VIAL SC SCH ×2 (08:16→20:37)
[2019-04-05] MEDS: CitaloPRAM (CeleXA) 10 MG TABLET PO SCH (08:16)
[2019-04-05] MEDS: ATORVASTATIN 20 MG TAB PO SCH (08:16)
[2019-04-05] MEDS: CLOPIDOGREL 75 MG TAB PO SCH (08:17)
[2019-04-05] MEDS: FLUDROCORTISONE ACETATE 0.1 MG TAB PO SCH (08:17)
[2019-04-05] MEDS: FOLIC ACID 1 MG TAB PO SCH (08:17)
[2019-04-05] MEDS: MIDODRINE 2.5 MG TAB PO SCH ×3 (08:17→20:37)
[2019-04-05] MEDS: ASPIRIN 81 MG ENTERIC TAB PO SCH (08:17)
[2019-04-05] MEDS: DOCUSATE SODIUM 100 MG CAP PO SCH ×2 (08:17→20:37)
[2019-04-05] MEDS: THIAMINE 100 MG TAB PO SCH (08:18)
--- NOTE | 2019-04-05 11:13 | CCN ---
DATE: 04/05/2019 Ms. Simmons is seen in the ICU. She has done fairly well overnight and has been off of Levophed since 5:00 a.m.. Blood pressures are remaining stable with a systolic pressure of 106 currently. She denies any chest pain or shortness of breath. Denies any fevers or chills. She did have an echocardiogram that showed a degree of LV diastolic dysfunction, but otherwise looked okay. The bridal gown fitter felt that it was unlikely that the patient's hypotension or shock was due to a cardiovascular problem according to his note. PHYSICAL EXAMINATION: VITALS: Temperature is 99.9, pulse 82, respiratory rate 20, blood pressure currently is 106/57. O2 saturation is 93% on room air. GENERAL: The patient is alert, oriented. She has a very flat affect and is an overall poor historian. HEENT: Head is normocephalic, atraumatic. Moist mucous membranes. Tongue is midline. NECK: There is a right internal jugular line in place. No cervical lymphadenopathy. No JVD. CARDIAC: Regular rate and rhythm. S1-S2 no murmurs. PULMONARY: Clear to auscultation bilaterally. No wheezes, rales or rhonchi. No accessory muscle use. ABDOMEN: Positive bowel sounds, soft, nontender. No rebound or guarding. EXTREMITIES: No edema. LABORATORIES: WBC 25.1, hemoglobin 12.5, hematocrit 36.5, platelets 252. Sodium 140, potassium 2.9, chloride 102, carbon dioxide 30, BUN 16, creatinine 0.51, glucose 237, calcium 7.6, magnesium 1.6. ASSESSMENT/PLAN: 1. Hypotension. The patient's hypotension is still being evaluated. It does not appear that cardiogenic shock is likely due to the echocardiogram results. The patient's blood pressure has actually improved and she has been off Levophed since early this morning. There is no evidence of pulmonary embolism based on the chest CT angiogram from 03/19/2019. She has no evidence of an infectious process. No evidence of liver failure based on labs. At this point in time her pressures have improved. She is being followed by the hospitalist and they are managing her hypokalemia and hypomagnesemia. At this point pulmonary will sign off.
--- NOTE | 2019-04-05 11:43 | IPNPDOC ---
Text Note Date of Service The patient was seen on 04/05/19. NOTE Subjective: No any acute event overnight, her blood pressure was stabilized on the Levophed IV. Patient denies fever, chills, nausea, vomiting, shortness of breath, palpitations diarrhea or dysuria Objective: General Exam: Positive: Alert, Cooperative, Other (flat affect) Eye Exam: Positive: PERRLA, Conjunctiva & lids normal ENT Exam: Positive: Jugular vein line in place Neck Exam: Positive: Supple; Negative: JVD Chest Exam: Positive: Clear to auscultation, Other (crackles bilaterally) Heart Exam: Positive: Rate Normal Telemetry: Positive: No significant arrhythmia Abdomen Exam: Positive: Normal bowel sounds Extremity Exam: Negative: Clubbing, Cyanosis Skin Exam: Positive: Nl turgor and temperature Neuro Exam: Positive: Strength at 5/5 X4 ext, Cranial Nerves 3-12 NL Psych Exam: Positive: Oriented x 3 Patient is 63 years old female with past medical history of small cell lung carcinoma diagnosed in August 2016 in her right upper lobe, noncompliant to treatment and she lost follow-up, COPD, adrenal insufficiency, schizophrenia, chronic hypertension, polyarthritis, tobacco abuse, presented to the hospital with low blood pressure around 70/40 and dizziness. Patient received hydrocortisone 100 mg every 6 IV and fludrocortisone 0.1 by mouth. On on 04/04 patient developed profound hypotension with systolic blood pressure around 40, s he was transferred to ICU, central line was placed, IV Levophed started. (1) Adrenal insufficiency Status: Acute Problem Text: Patient has a history of noncompliance to medication. Patient does not have obvious source of infection, lungs are clear. Increased leukocytes count most likely secondary to steroid treatment. Patient is afebrile, lactic acid within normal limit She presented with profound hypotension most likely secondary to adrenal crisis On on 04/04 patient developed profound hypotension with systolic blood pressure around 40, she was transferred to ICU, central line was placed, IV Levophed started. Patient continues to have low blood pressure, continue with IV Levophed, cont inue steroids. It's still unclear etiology why patient developed profound hypotension, patient nontoxic, afebrile, does not have any acute bleeding, hemoglobin is stable, chest x-ray clear, she was not volume depleted, T4 within normal limit, previous TSH within normal limit. Patient does not have any pain I talked to Dr. George, who is pathology tech , she will consult patient on Tuesday (2) Weakness generalized Status: Acute Problem Text: Secondary to adrenal insufficiency (3) Small cell lung cancer, right upper lobe Status: Chronic Problem Text: Follow-up with oncologist in the outpatient settings (4) Diabetes mellitus Status: Chronic Problem Text: Insulin sliding scale Diabetes diet (5) Fracture of ribs, multiple Status: Chronic Problem Text: Patient does not complain of chest pain Pain management when necessary Incentive spirometry VS,Arielbone, I+O VS, Fishbone, I+O Laboratory Tests 04/05/19 04:07 Vital Signs Date Time Temp Pulse Resp B/P (MAP) Pulse Ox O2 Delivery O2 Flow Rate FiO2 04/05/19 09:00 82 94/58 (70) 93 Room Air 04/05/19 08:00 99.9 20 04/05/19 04:00 2.0 I&O- Last 24 Hours up to 6 AM 04/05/19 06:00 Intake Total 3588.2 ml Output Total 1805 ml Balance 1783.2 ml MARIA DE JESUS COSTA DO Apr 05, 2019 11:43
[2019-04-05 11:53] LABS: BLOOD UREA NITROGEN 12 MG/DL (7-18); CALCIUM LEVEL 8.1 MG/DL (8.8-10.2); CARBON DIOXIDE LEVEL 30 MEQ/L (21-32); CHLORIDE LEVEL 101 MEQ/L (98-107); CREATININE FOR GFR 0.55 MG/DL (0.55-1.30); GLOMERULAR FILTRATION RATE > 60.0 (>45); GLUCOSE, FASTING 146 MG/DL (70-100); POTASSIUM SERUM 3.3 MEQ/L (3.5-5.1); SODIUM LEVEL 137 MEQ/L (136-145)
[2019-04-05] MEDS ORDERED: LIDOCAINE 1% MDV 20ML VIAL SC ONE (12:00)
[2019-04-05] MEDS: NS 1,000 ML IV SCH (16:57)
[2019-04-05] MEDS: SLF 3 ML SYR IV PRN (21:50)
[2019-04-05] MEDS: SODIUM CHLORIDE 0.9% INJ 10 ML SYR IV PRN (21:50)
[2019-04-05] MEDS: SODIUM CHLORIDE 0.9% INJ 10 ML SYR IV SCH (22:00)
[2019-04-06] VITALS (110 sets, daily range): BP systolic 69–158; BP diastolic 44–103
[2019-04-06] MEDS: NS 1,000 ML IV SCH (04:29)
[2019-04-06] MEDS: SODIUM CHLORIDE 0.9% INJ 10 ML SYR IV PRN (04:29)
[2019-04-06] MEDS: SLF 3 ML SYR IV PRN (04:30)
[2019-04-06 04:47] LABS: HEMATOCRIT 35.1 % (36.0-47.0); HEMOGLOBIN 12.2 g/dl (12.0-15.5); MEAN CORPUSCULAR HEMOGLOBIN 32.5 pg (27.0-33.0); MEAN CORPUSCULAR HGB CONC 34.8 g/dl (32.0-36.5); MEAN CORPUSCULAR VOLUME 93.6 fl (80.0-96.0); PLATELET COUNT, AUTOMATED 223 10^3/uL (150-450); RED BLOOD COUNT 3.75 10^6/uL (4.00-5.40); WHITE BLOOD COUNT 20.3 10^3/uL (4.0-10.0)
[2019-04-06 05:13] LABS: BLOOD UREA NITROGEN 8 MG/DL (7-18); CALCIUM LEVEL 7.9 MG/DL (8.8-10.2); CARBON DIOXIDE LEVEL 35 MEQ/L (21-32); CHLORIDE LEVEL 98 MEQ/L (98-107); CREATININE FOR GFR 0.31 MG/DL (0.55-1.30); GLOMERULAR FILTRATION RATE > 60.0 (>45); GLUCOSE, FASTING 126 MG/DL (70-100); MAGNESIUM LEVEL 1.8 MG/DL (1.8-2.4); POTASSIUM SERUM 2.6 MEQ/L (3.5-5.1); SODIUM LEVEL 138 MEQ/L (136-145)
[2019-04-06] MEDS ORDERED: KCL 10MEQ/100ML SWI (KRUN) 10 MEQ in IV 1 EA IV ONE (05:30)
[2019-04-06] MEDS ORDERED: POTASSIUM CHL PWD 20 MEQ PACKET PO SCH (06:00)
[2019-04-06] MEDS: SLF 3 ML SYR IV SCH ×3 (06:00→20:52)
[2019-04-06] MEDS: SODIUM CHLORIDE 0.9% INJ 10 ML SYR IV SCH ×3 (06:19→20:53)
[2019-04-06] MEDS: HumaLOG INSULIN (NovoLOG) PER UNIT SC SCH ×4 (07:30→20:51)
[2019-04-06] MEDS: MAGNESIUM CHLORIDE 64 MG TABCR (SLO MAG) PO SCH ×3 (08:02→20:49)
[2019-04-06] MEDS: ATORVASTATIN 20 MG TAB PO SCH (08:02)
[2019-04-06] MEDS: THIAMINE 100 MG TAB PO SCH (08:03)
[2019-04-06] MEDS: MIDODRINE 2.5 MG TAB PO SCH ×3 (08:03→20:48)
[2019-04-06] MEDS: ASPIRIN 81 MG ENTERIC TAB PO SCH (08:03)
[2019-04-06] MEDS: FLUDROCORTISONE ACETATE 0.1 MG TAB PO SCH (08:03)
[2019-04-06] MEDS: DOCUSATE SODIUM 100 MG CAP PO SCH ×2 (08:03→20:49)
[2019-04-06] MEDS: FOLIC ACID 1 MG TAB PO SCH (08:03)
[2019-04-06] MEDS: CitaloPRAM (CeleXA) 10 MG TABLET PO SCH (08:03)
[2019-04-06] MEDS: CLOPIDOGREL 75 MG TAB PO SCH (08:03)
[2019-04-06] MEDS: HEPARIN SOD (PORCINE) 5000 UNITS/ML VIAL SC SCH ×2 (08:03→20:48)
[2019-04-06] MEDS: HYDROCORTISONE 100 MG/2 ML VIAL (J1720 PER 1) IV SCH ×2 (08:04→20:48)
[2019-04-06] MEDS ORDERED: POTASSIUM CHLORIDE 10 MEQ SR TABLET PO SCH (09:00)
[2019-04-06 09:01] LABS: BLOOD UREA NITROGEN 6 MG/DL (7-18); CARBON DIOXIDE LEVEL 33 MEQ/L (21-32); CHLORIDE LEVEL 101 MEQ/L (98-107); CREATININE FOR GFR 0.51 MG/DL (0.55-1.30); GLOMERULAR FILTRATION RATE > 60.0 (>45); GLUCOSE, FASTING 134 MG/DL (70-100); POTASSIUM SERUM 3.7 MEQ/L (3.5-5.1); SODIUM LEVEL 138 MEQ/L (136-145)
[2019-04-06] MEDS: NOREPINEPHRINE BITARTRATE 8 MG in D5W 492 ML IV SCH ×2 (09:37→23:20)
[2019-04-06 09:58] LABS: POTASSIUM RANDOM URINE 21.9 MEQ/L
[2019-04-06] MEDS ORDERED: NS 1,000 ML IV ONE (15:30)
--- NOTE | 2019-04-06 15:33 | CCN ---
DATE: 04/06/2019 Critical care time was 53 minutes, this excludes all procedures. I was called to see the patient again due to recurrent hypotension. It has been noticed that the patient has been having polydipsia along with polyuria. Urine output yesterday was 4.8 liters. She had been getting IV fluids. Her urine osmolarity, as well as urine sodium is high. She has no evidence of hyperglycemia as an alternative cause of her diabetes insipidus. Her blood pressure varies from acceptable to as high as 130/75 to as low as 70/51 over the past 24 hours. Before that her blood pressure was even lower than that; however, she shows no signs of shock. She has no evidence of lactic acidosis or tachycardia. She has been on long-term hydrocortisone and Florinef. The primary team has discussed the case with endocrinology and she is willing to be consulted to see the patient on Tuesday, we are grateful for this. She does have episodes where she is hypokalemia. My suspicion is it is from the diuresis. PHYSICAL EXAMINATION: Temperature is 99.2 pulses 84, respiratory rate is 20, blood pressure is 71/53 with a MAP of 53. Now starting Levophed. HEENT: Sclerae clear and anicteric. Pupils equal, round to light. Mucous membranes moist without lesions. Appears euvolemic based on mouth texture. Lymphs: No cervical, supraclavicular or axillary adenopathy. Cardiac: Regular S1, S2 without audible murmur or gallop. No elevated jugular venous pressure. No systemic edema. Pulmonary: Clear to auscultation without rales, rhonchi or wheezes. No dullness to percussion. No accessory muscle use. Abdomen: Soft, nontender, nondistended without hepatosplenomegaly. No masses or hernia. Extremities: No cyanosis, clubbing or edema. Neurologic: No unilateral weakness or tremor. Psychiatric: Very flat affect, answers yes or no questions. No elaboration. LABORATORY EVALUATION: Sodium 138, potassium 3.7. Four hours ago sodium 138, potassium 2.6, bicarbonate is 33, BUN of 6, creatinine of 0.51 and a glucose is 126 this morning, 134 after eating. Serum osmolality is 284, which is low normal. Calcium is low at 8.0, however, albumin was low at 2.8 on the . Free T4 was within normal limits on 04/04 measured at 0.92, total protein is 6.9. Central venous oxygen saturation on the was 90, which is high and therefore suggesting adequate perfusion, possible shunting. Echocardiogram shows normal sinus rhythm, subtle mitral thickening but normal leaflet thickness. Trace degree of mitral insufficiency. Normal appearing tricuspid valve. Normal IVC size and collapse against elevated central venous pressure. Normal right heart sided chambers. Normal left ventricular size and thickness with hyperkinetic wall motion that was appropriate for the patient's current state. IMPRESSION: 1. Hypotension in the setting of polyuria, polydipsia without significant hyperglycemia. I believe there is a possibility of central diabetes insipidus and therefore recommend MRI of the brain. I also recommended endocrinology consultation, which has already been requested. In the meantime, would workup for diabetes insipidus. At this point in time, she has no evidence of shock. She has no evidence of cardiogenic shock with a fairly normal echocardiogram. She has no evidence of obstructive or distributive shock. She has no evidence of hypoperfusion to organs. Would limit vasopressor therapy as much as possible. 2. Hypoalbuminemia. Encourage protein supplementation. We will continue to follow this very interesting case. At this point in time, would continue treatment for adrenal insufficiency as this has been a longstanding diagnosis that had not been challenged. At this point in time, I do believe it would be safe to remove any steroids. CYNTHIAD
--- NOTE | 2019-04-06 16:22 | IPNPDOC ---
Text Note Date of Service The patient was seen on 04/06/19. NOTE Subjective: Patient continues to have low blood pressure, Levophed drip rest arted, also patient developed polydipsia with polyuria Objective: General Exam: Positive: Alert, Cooperative, Other (flat affect) Eye Exam: Positive: PERRLA, Conjunctiva & lids normal ENT Exam: Positive: Jugular central line in place Neck Exam: Positive: Supple; Negative: JVD Chest Exam: Positive: Clear to auscultation, Other (crackles bilaterally) Heart Exam: Positive: Rate Normal Telemetry: Positive: No significant arrhythmia Abdomen Exam: Positive: Normal bowel sounds Extremity Exam: Negative: Clubbing, Cyanosis Skin Exam: Positive: Nl turgor and temperature Neuro Exam: Positive: Strength at 5/5 X4 ext, Cranial Nerves 3-12 NL Psych Exam: Positive: Oriented x 3 Patient is 63 years old female with past medical history of small cell lung carcinoma diagnosed in August 2016 in her right upper lobe, noncompliant to treatment and she lost follow-up, COPD, adrenal insufficiency, schizophrenia, chronic hypertension, polyarthritis, tobacco abuse, presented to the hospital with low blood pressure around 70/40 and dizziness. Patient received hydrocortisone 100 mg every 6 IV and fludrocortisone 0.1 by mouth. On on 04/04 patient developed profound hypotension with systolic blood pressure around 40, she was transferred to ICU, central line was placed, IV Levophed started. Adrenal insufficiency Status: Acute Problem Text: Patient has a history of noncompliance to medication. Patient does not have obvious source of infection, lungs are clear. Increased leukocytes count most likely secondary to steroid treatment. Patient is afebrile, lactic acid within normal limit She presented with profound hypotension most likely secondary to adrenal crisis On on 04/04 patient developed profound hypotension with systolic blood pressure around 40, she was transferred to ICU, central line was placed, IV Levophed started. Patient continues to have low blood pressure, continue with IV Levophed, continue steroids. It's still unclear etiology why patient developed profound hypotension, patient nontoxic, afebrile, does not have any acute bleeding, hemoglobin is stable, chest x-ray clear, she was not volume depleted, T4 within normal limit, previous TSH within normal limit. Patient does not have any pain I talked to Dr. George, who is real estate underwriter , she will consult patient on Tuesday Today patient developed polydipsia with polyuria, urine osmolality 279, serum was 284. 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 Will proceed with brain MRI will proceed with water deprivation test after pt stabilization (2) Weakness generalized Status: Acute Problem Text: Secondary to adrenal insufficiency (3) Small cell lung cancer, right upper lobe Status: Chronic Problem Text: Follow-up with oncologist in the outpatient settings (4) Diabetes mellitus Status: Chronic Problem Text: Insulin sliding scale Diabetes diet (5) Fracture of ribs, multiple Status: Chronic Problem Text: Patient does not complain of chest pain Pain management when necessary Incentive spirometry VS,Fishbone, I+O VS, Fishbone, I+O Laboratory Tests 04/06/19 04:31 04/06/19 08:08 Vital Signs Date Time Temp Pulse Resp B/P (MAP) Pulse Ox O2 Delivery O2 Flow Rate FiO2 04/06/19 14:06 71/44 (53) 04/06/19 14:00 106 91 04/06/19 12:00 98.3 18 Room Air 04/05/19 04:00 2.0 I&O- Last 24 Hours up to 6 AM 04/06/19 06:00 Intake Total 4570 ml Output Total 5745 ml Balance -1175 ml MARIA DE JESUS COSTA DO Apr 06, 2019 16:22
[2019-04-06] MEDS ORDERED: PROHANCE 279.3MG/ML 5ML VIAL (A9576) As Ordered ONE (18:30)
--- NOTE | 2019-04-06 20:28 | REPVR ---
PROCEDURE INFORMATION: Exam: MR Head Without and With Contrast Exam date and time: 04/06/2019 7:07 PM Clinical history: 63 years old, female; Other: Central diabettes insipidus; Additional info: ? Central diabetes insipidus. TECHNIQUE: Imaging protocol: MR of the head without and with intravenous contrast. Contrast material: PROHANCE; Contrast volume: 9 ml; Contrast route: IV; COMPARISON: MRI-Brain W/O FOLL BY WITH 10/04/2017 1:57 PM FINDINGS: Brain: The brain demonstrates diffuse volume loss to a degree that is prominent for age. Patchy increased signal intensity on T2-weighted imaging most likely reflects chronic small vessel change. There are chronic transcortical right frontal, parietal, temporal and occipital infarcts. Prominent chronic ischemic changes in the right jeffries radiata and centrum semiovale deep white matter, in part representing evolution of previously demonstrated infarctions. No pathologic enhancement identified on the post contrast imaging. Ventricles: The ventricles appear mildly enlarged in keeping with volume loss. Bones/joints: Unremarkable. Soft tissues: Unremarkable. Sinuses: Normal as visualized. No acute sinusitis. Mastoid air cells: Normal as visualized. No mastoid effusion. Orbits: Unremarkable. Sella: The pituitary gland is grossly unremarkable. The pituitary stalk is grossly unremarkable. Vasculature: Loss of flow-void for the proximal right ICA consistent with high-grade stenosis over occlusion. IMPRESSION: No acute intracranial abnormality seen. Interval loss of flow-void in the right ICA in the petrous and cavernous segments consistent with high-grade stenosis or occlusion, a new appearance since prior. Electronically signed by: Celina Acharya On 04/06/2019 20:28:20 PM
[2019-04-07] VITALS (8 sets, daily range): BP systolic 96–126; BP diastolic 56–79
[2019-04-07 05:23] LABS: HEMATOCRIT 36.4 % (36.0-47.0); HEMOGLOBIN 12.6 g/dl (12.0-15.5); MEAN CORPUSCULAR HEMOGLOBIN 32.1 pg (27.0-33.0); MEAN CORPUSCULAR HGB CONC 34.6 g/dl (32.0-36.5); MEAN CORPUSCULAR VOLUME 92.6 fl (80.0-96.0); PLATELET COUNT, AUTOMATED 235 10^3/uL (150-450); RED BLOOD COUNT 3.93 10^6/uL (4.00-5.40)
[2019-04-07 05:47] LABS: BLOOD UREA NITROGEN 8 MG/DL (7-18); CALCIUM LEVEL 7.8 MG/DL (8.8-10.2); CARBON DIOXIDE LEVEL 36 MEQ/L (21-32); CHLORIDE LEVEL 96 MEQ/L (98-107); CREATININE FOR GFR 0.42 MG/DL (0.55-1.30); GLOMERULAR FILTRATION RATE > 60.0 (>45); GLUCOSE, FASTING 105 MG/DL (70-100); MAGNESIUM LEVEL 1.8 MG/DL (1.8-2.4); POTASSIUM SERUM 2.5 MEQ/L (3.5-5.1); SODIUM LEVEL 139 MEQ/L (136-145)
[2019-04-07] MEDS ORDERED: KCL 20MEQ IN 100ML SWI (KRUN) 20 MEQ in IV 1 EA IV ONE ×2 (06:15)
[2019-04-07] MEDS ORDERED: POTASSIUM CHLORIDE 10 MEQ SR TABLET PO ONE ×2 (06:15→14:00)
[2019-04-07] MEDS: SLF 3 ML SYR IV SCH ×3 (06:41→21:19)
[2019-04-07] MEDS: SODIUM CHLORIDE 0.9% INJ 10 ML SYR IV SCH ×3 (06:41→21:19)
[2019-04-07] MEDS: HumaLOG INSULIN (NovoLOG) PER UNIT SC SCH ×4 (07:30→21:00)
[2019-04-07] MEDS: ATORVASTATIN 20 MG TAB PO SCH (08:53)
[2019-04-07] MEDS: CitaloPRAM (CeleXA) 10 MG TABLET PO SCH (08:53)
[2019-04-07] MEDS: DOCUSATE SODIUM 100 MG CAP PO SCH ×2 (08:53→20:42)
[2019-04-07] MEDS: MIDODRINE 2.5 MG TAB PO SCH ×3 (08:53→20:42)
[2019-04-07] MEDS: THIAMINE 100 MG TAB PO SCH (08:54)
[2019-04-07] MEDS: FLUDROCORTISONE ACETATE 0.1 MG TAB PO SCH (08:54)
[2019-04-07] MEDS: CLOPIDOGREL 75 MG TAB PO SCH (08:54)
[2019-04-07] MEDS: FOLIC ACID 1 MG TAB PO SCH (08:54)
[2019-04-07] MEDS: ASPIRIN 81 MG ENTERIC TAB PO SCH (08:54)
[2019-04-07] MEDS: HEPARIN SOD (PORCINE) 5000 UNITS/ML VIAL SC SCH ×2 (08:55→20:42)
[2019-04-07] MEDS: MAGNESIUM CHLORIDE 64 MG TABCR (SLO MAG) PO SCH ×3 (09:03→20:42)
[2019-04-07] MEDS: HYDROCORTISONE 10 MG TAB PO SCH (09:06)
[2019-04-07] MEDS ORDERED: MAG SULF 1GM/100ML (MAG RUN) 1 GM in IV 1 EA IV ONE (11:00)
--- NOTE | 2019-04-07 12:54 | CCN ---
DATE: 04/07/2019 Patient was seen and examined this morning during bedside rounds. The patient denies any complaints currently. She denies any chest pain. No shortness of breath. No fevers or chills. Has not had any coughing. The patient has been off of pressors since yesterday afternoon and has been maintaining a blood pressure currently. She has not any fevers overnight. PHYSICAL EXAM: Temperature 98.9, pulse of 80, respirations 16, blood pressure 119/63, O2 sat 91-94% on room air. Ins 490 mL, out 1.5 liters, net negative 1 liter. General: The patient has a flat affect with poor eye contact. She is awake and alert and is answering questions appropriately. HEENT: Normocephalic, atraumatic. Mucous membranes are moist. Pupils are reactive to light bilaterally. Neck is supple. There is a right IJ line in place. There is no palpable cervical adenopathy. Cardiac: Regular rate and rhythm. Normal S1-S2. Pulmonary: The patient has a coarse inspiratory wheeze in the right upper lobe, diminished breath sounds bilaterally otherwise. There is no rhonchi noted. No crackles. Abdomen is soft, nontender, nondistended. No palpable mass. Extremities: There is no lower extremity edema noted. There is a cystic lesion at the left mid sternum that is nontender to palpation and nonerythematous. LABORATORIES: WBC 21, hemoglobin 12.6, platelets 235. Chemistry: Sodium is 139, potassium 2.5, chloride is 96, bicarb is 36, BUN 8, creatinine 0.42, glucose 105, magnesium is 1.8. IMAGING: Chest x-ray shows right upper lobe irregular band of scarring and opacity along with the fiducial marker. Right IJ line is in place. No other focal opacities or infiltrates. Brain MRI shows loss of flow void in the right ICA in the petrous and cavernous segments suggestive of high-grade stenosis or occlusion. ASSESSMENT/PLAN: Ms. Simmons is a 63-year-old female with a past medical history of chronic obstructive pulmonary disease (COPD), small-cell lung cancer status post chemotherapy and SBRT that has been lost to followup as an outpatient, chronic adrenal insufficiency on chronic steroids, history of schizophrenia, diabetes and hyperlipidemia who presented with hypotension, was initially on vasopressor support for her hypotension. The patient has been off of pressors since yesterday afternoon and blood pressures have remained stable. The patient's hypotension was likely in the setting of her chronic adrenal insufficiency. No signs of infectious etiology with no fevers or chills and with negative infectious workup currently including blood cultures, UA and chest x-ray that did not show any evidence of focal opacities to suggest any pneumonia. Patient is asymptomatic. Denies any abdominal pain. Has not had any diarrhea either. Patient also while hypotensive did not have any evidence of shock with a normal lactate. Patient had also had a previous CT angiogram done earlier in the month which did not show any evidence of PE to suggest possible obstructive shock. She had a CT which did show her chronic irregular scarring in the right upper lobe with some scattered interstitial opacities which were unchanged. The patient's echocardiogram showed normal EF and no significant valvular disease or evidence of tamponade to explain her hypotension. - The patient's of blood pressure has since improved and she has remained off of pressors since yesterday afternoon. - She does have some polyuria and polydipsia which may be possibly due to central diabetes insipidus as her urine sodium and osmolarity was relatively increased. Her MRI of the brain did not show any significant pituitary lesion but she does have evidence of possible stenosis or occlusion in her right ICA. She also has history of malignancy with small cell lung cancer, which is also potential etiology for central diabetes insipidus. She also has a history of schizophrenia so some of the polydipsia and polyuria may be psychogenic. - Would continue treatment for her adrenal insufficiency and followup with endocrine recommendations. - Would continue to monitor her ins and outs in an attempt to keep the patient net even if possible for her blood pressure - Continue with protein supplementation for her hypoalbuminemia. CODE STATUS: DO NOT RESUSCITATE/DO NOT INTUBATE. Please do not hesitate to call if any further questions or concerns. MTDD
--- NOTE | 2019-04-07 14:33 | IPNPDOC ---
Text Note Date of Service The patient was seen on 04/07/19. NOTE Subjective: No any acute events overnight. Blood pressure was stabilized, ross dickson continues to have polyuria with polydipsia. Objective: General Exam: Positive: Alert, Cooperative, Other (flat affect) Eye Exam: Positive: PERRLA, Conjunctiva & lids normal ENT Exam: Positive: Jugular central line in place Neck Exam: Positive: Supple; Negative: JVD Chest Exam: Positive: Clear to auscultation, Other (crackles bilaterally) Heart Exam: Positive: Rate Normal Telemetry: Positive: No significant arrhythmia Abdomen Exam: Positive: Normal bowel sounds Extremity Exam: Negative: Clubbing, Cyanosis Skin Exam: Positive: Nl turgor and temperature Neuro Exam: Positive: Strength at 5/5 X4 ext, Cranial Nerves 3-12 NL Psych Exam: Positive: Oriented x 3 Patient is 63 years old female with past medical history of small cell lung carcinoma diagnosed in August 2016 in her right upper lobe, noncompliant to treatment and she lost follow-up, COPD, adrenal insufficiency, schizophrenia, chronic hypertension, polyarthritis, tobacco abuse, presented to the hospital with low blood pressure around 70/40 and dizziness. Patient received hydrocortisone 100 mg every 6 IV and fludrocortisone 0.1 by mouth. On on 04/04 patient developed profound hypotension with systolic blood pressure around 40, she was transferred to ICU, central line was placed, IV Levophed started. Adrenal insufficiency Status: Acute Problem Text: Patient has a history of noncompliance to medication. Patient does not have obvious source of infection, lungs are clear. Increased leukocytes count most likely secondary to steroid treatment. Patient is afebrile, lactic acid within normal limit She presented with profound hypotension most likely secondary to adrenal crisis On on 04/04 patient developed profound hypotension with systolic blood pressure around 40, she was transferred to ICU, central line was placed, IV Levophed started. Patient continues to have low blood pressure, continue with IV Levophed, continue steroids. It's still unclear etiology why patient developed profound hypotension, patient nontoxic, afebrile, does not have any acute bleeding, hemoglobin is stable, chest x-ray clear, she was not volume depleted, T4 within normal limit, previous TSH within normal limit. Patient does not have any pain I talked to Dr. George, who is oil well service unit operator , she will consult patient on Tuesday On 04/07/19 I switched IV hydrocortisone to by mouth hydrocortisone. Blood press ure became stable since 04/07/19 Hypotension See above Resolved Off Levophed for past 12 hours Polydipsia and polyuria On 04/07/19 patient developed polydipsia with polyuria, urine osmolality 279, serum was 284. 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 MRI of the brain did not show any significant pituitary lesion but she does have evidence of possible stenosis or occlusion in her right ICA. Differential diagnosis also includes resolution of ATN, patient did have profound hypotension with kidney hypoperfusion. FENA was 1.28. Urine osmolarity improved today. Patient will need water deprivation test to rule out diabetes insipidus after initial stabilization (2) Weakness generalized Status: Acute Problem Text: Secondary to adrenal insufficiency (3) Small cell lung cancer, right upper lobe Status: Chronic Problem Text: Follow-up with oncologist in the outpatient settings (4) Diabetes mellitus Status: Chronic Problem Text: Insulin sliding scale Diabetes diet (5) Fracture of ribs, multiple Status: Chronic Problem Text: Patient does not complain of chest pain Pain management when necessary Incentive spirometry VS,Fishbone, I+O VS, Fishbone, I+O Laboratory Tests 04/07/19 04:54 04/07/19 10:19 Vital Signs Date Time Temp Pulse Resp B/P (MAP) Pulse Ox O2 Delivery O2 Flow Rate FiO2 04/07/19 12:00 97.5 89 18 126/65 (85) 90 Room Air 04/05/19 04:00 2.0 I&O- Last 24 Hours up to 6 AM 04/07/19 06:00 Intake Total 4860.7 ml Output Total 4875 ml Balance -14.3 ml MARIA DE JESUS COSTA DO Apr 07, 2019 14:33
[2019-04-07 15:48] LABS: CREATININE,RANDOM URINE 38.2 MG/DL
[2019-04-07] MEDS: HYDROCORTISONE 5MG TABLET PO SCH (16:31)
[2019-04-07] MEDS: SODIUM CHLORIDE 0.9% INJ 10 ML SYR IV PRN (20:43)
[2019-04-07] MEDS: SLF 3 ML SYR IV PRN (20:43)
[2019-04-08] VITALS (9 sets, daily range): BP systolic 81–138; BP diastolic 53–89
[2019-04-08] MEDS: KCL 20MEQ IN 100ML SWI (KRUN) 20 MEQ in IV 1 EA IV SCH ×4 (03:42→05:42)
[2019-04-08] MEDS: SLF 3 ML SYR IV SCH ×3 (05:42→22:00)
[2019-04-08] MEDS: SODIUM CHLORIDE 0.9% INJ 10 ML SYR IV SCH ×3 (05:42→21:10)
[2019-04-08] MEDS: HumaLOG INSULIN (NovoLOG) PER UNIT SC SCH ×4 (07:29→21:00)
[2019-04-08 07:52] LABS: HEMOGLOBIN 13.7 g/dl (12.0-15.5); MEAN CORPUSCULAR HEMOGLOBIN 31.9 pg (27.0-33.0); MEAN CORPUSCULAR HGB CONC 34.3 g/dl (32.0-36.5); MEAN CORPUSCULAR VOLUME 93.2 fl (80.0-96.0); PLATELET COUNT, AUTOMATED 247 10^3/uL (150-450); RED BLOOD COUNT 4.29 10^6/uL (4.00-5.40); WHITE BLOOD COUNT 24.6 10^3/uL (4.0-10.0)
[2019-04-08 08:29] LABS: BLOOD UREA NITROGEN 12 MG/DL (7-18); CALCIUM LEVEL 8.9 MG/DL (8.8-10.2); CARBON DIOXIDE LEVEL 33 MEQ/L (21-32); CHLORIDE LEVEL 99 MEQ/L (98-107); CREATININE FOR GFR 0.38 MG/DL (0.55-1.30); GLOMERULAR FILTRATION RATE > 60.0 (>45); GLUCOSE, FASTING 71 MG/DL (70-100); MAGNESIUM LEVEL 2.2 MG/DL (1.8-2.4); POTASSIUM SERUM 4.3 MEQ/L (3.5-5.1); SODIUM LEVEL 136 MEQ/L (136-145)
[2019-04-08] MEDS: DOCUSATE SODIUM 100 MG CAP PO SCH ×2 (09:07→21:09)
[2019-04-08] MEDS: HYDROCORTISONE 10 MG TAB PO SCH (09:08)
[2019-04-08] MEDS: FLUDROCORTISONE ACETATE 0.1 MG TAB PO SCH (09:08)
[2019-04-08] MEDS: ASPIRIN 81 MG ENTERIC TAB PO SCH (09:08)
[2019-04-08] MEDS: CLOPIDOGREL 75 MG TAB PO SCH (09:08)
[2019-04-08] MEDS: FOLIC ACID 1 MG TAB PO SCH (09:08)
[2019-04-08] MEDS: THIAMINE 100 MG TAB PO SCH (09:09)
[2019-04-08] MEDS: MIDODRINE 2.5 MG TAB PO SCH (09:09)
[2019-04-08] MEDS: ATORVASTATIN 20 MG TAB PO SCH (09:09)
[2019-04-08] MEDS: MAGNESIUM CHLORIDE 64 MG TABCR (SLO MAG) PO SCH ×3 (09:09→21:09)
[2019-04-08] MEDS: HEPARIN SOD (PORCINE) 5000 UNITS/ML VIAL SC SCH ×2 (09:13→21:09)
[2019-04-08] MEDS: CitaloPRAM (CeleXA) 10 MG TABLET PO SCH (09:14)
[2019-04-08] MEDS ORDERED: NS 1,000 ML IV SCH (15:00)
--- NOTE | 2019-04-08 15:10 | IPNPDOC ---
Text Note Date of Service The patient was seen on 04/08/19. NOTE Subjective: No any acute events overnight. Blood pressure is stable patient, polyuria resolved Objective: General Exam: Positive: Alert, Cooperative, Other (flat affect) Eye Exam: Positive: PERRLA, Conjunctiva & lids normal ENT Exam: Positive: Jugular central line in place Neck Exam: Positive: Supple; Negative: JVD Chest Exam: Positive: Clear to auscultation, Other (crackles bilaterally) Heart Exam: Positive: Rate Normal Telemetry: Positive: No significant arrhythmia Abdomen Exam: Positive: Normal bowel sounds Extremity Exam: Negative: Clubbing, Cyanosis Skin Exam: Positive: Nl turgor and temperature Neuro Exam: Positive: Strength at 5/5 X4 ext, Cranial Nerves 3-12 NL Psych Exam: Positive: Oriented x 3 Patient is 63 years old female with past medical history of small cell lung carcinoma diagnosed in August 2016 in her right upper lobe, noncompliant to treatment and she lost follow-up, COPD, adrenal insufficiency, schizophrenia, chronic hypertension, polyarthritis, tobacco abuse, presented to the hospital with low blood pressure around 70/40 and dizziness. Patient received hydrocortisone 100 mg every 6 IV and fludrocortisone 0.1 by mouth. On on 04/04 patient developed profound hypotension with systolic blood pressure around 40, she was transferred to ICU, central line was placed, IV Levophed started. Adrenal insufficiency Status: Acute Problem Text: Patient has a history of noncompliance to medication. Patient does not have obvious source of infection, lungs are clear. Increased leukocytes count most likely secondary to steroid treatment. Patient is afebrile, lactic acid within normal limit She presented with profound hypotension most likely secondary to adrenal crisis On on 04/04 patient developed profound hypotension with systolic blood pressure around 40, she was transferred to ICU, central line was placed, IV Levophed started. Patient continues to have low blood pressure, continue with IV Levophed, josesito nue steroids. It's still unclear etiology why patient developed profound hypotension, patient nontoxic, afebrile, does not have any acute bleeding, hemoglobin is stable, chest x-ray clear, she was not volume depleted, T4 within normal limit, previous TSH within normal limit. Patient does not have any pain I talked to Dr. George, who is clinical nursing intern , she will consult patient on Tuesday On 04/07/19 I switched IV hydrocortisone to by mouth hydrocortisone. Blood pressure became stable since 04/07/19 Hypotension Off Levophed Continue midodrine Polydipsia and polyuria On 04/07/19 patient developed polydipsia with polyuria, urine osmolality 279, serum was 284. 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 MRI of the brain did not show any significant pituitary lesion but she does have evidence of possible stenosis or occlusion in her right ICA. FENA was 1.28. Patient will need water deprivation test to rule out diabetes insipidus after initial stabilization (2) Weakness generalized Status: Acute Problem Text: Secondary to adrenal insufficiency (3) Small cell lung cancer, right upper lobe Status: Chronic Problem Text: Follow-up with oncologist in the outpatient settings (4) Diabetes mellitus Status: Chronic Problem Text: Insulin sliding scale Diabetes diet (5) Fracture of ribs, multiple Status: Chronic Problem Text: Patient does not complain of chest pain Pain management when necessary Incentive spirometry VS,Fishbone, I+O VS, Fishbone, I+O Laboratory Tests 04/07/19 20:46 04/08/19 00:58 04/08/19 07:26 Vital Signs Date Time Temp Pulse Resp B/P (MAP) Pulse Ox O2 Delivery O2 Flow Rate FiO2 04/08/19 14:19 92/63 (73) 04/08/19 14:00 97.3 100 24 90 Room Air 04/05/19 04:00 2.0 I&O- Last 24 Hours up to 6 AM 04/08/19 06:00 Intake Total 3260 ml Output Total 3600 ml Balance -340 ml MARIA DE JESUS COSTA DO Apr 08, 2019 15:10
[2019-04-08] MEDS: MIDODRINE 5 MG TAB PO SCH (17:16)
[2019-04-08] MEDS: HYDROCORTISONE 5MG TABLET PO SCH (17:16)
[2019-04-08 18:40] LABS: OSMOLALITY SERUM 294 MOSM/KG (280-301)
[2019-04-08 18:48] LABS: ALBUMIN 2.8 GM/DL (3.2-5.2); BLOOD UREA NITROGEN 22 MG/DL (7-18); CARBON DIOXIDE LEVEL 30 MEQ/L (21-32); CHLORIDE LEVEL 100 MEQ/L (98-107); CREATININE FOR GFR 0.72 MG/DL (0.55-1.30); GLOMERULAR FILTRATION RATE > 60.0 (>45); GLUCOSE, FASTING 191 MG/DL (70-100); MAGNESIUM LEVEL 1.9 MG/DL (1.8-2.4); PHOSPHORUS LEVEL 4.3 MG/DL (2.5-4.9); POTASSIUM SERUM 3.7 MEQ/L (3.5-5.1); SODIUM LEVEL 138 MEQ/L (136-145)
--- NOTE | 2019-04-08 20:58 | CR ---
DATE OF CONSULTATION: 04/08/2019 CONSULTATION REPORT FOR: Ray DO Tiffani REASON FOR CONSULTATION: Possible diabetes insipidus in this lady with complicated medical problems. HISTORY OF PRESENT ILLNESS: Ms. Simmons is a 63-year-old female who was admitted to [facility] on 04/03/2019 due to hypotension. She has known history for adrenal insufficiency and history of small-cell lung carcinoma. Apparently she was on replacement therapy for her adrenal insufficiency. However stopped taking her medications. She was admitted to intensive care unit and treated with IV fluids and pressors. Her blood pressure has now improved. However, over last couple of days she has developed significant urine output. She also has history of schizophrenia with excessive fluid intake. There was a suspicion for possible diabetes insipidus due to which a renal consultation was requested today and the patient is seen this afternoon. PAST MEDICAL AND SURGICAL HISTORY: Significant for: 1. Small cell lung cancer in right upper lobe. 2. COPD. 3. Adrenal insufficiency. 4. Schizophrenia. 5. History of chronic hypertension. 6. Depression. 7. Arthritis. 8. History of diabetes. MEDICATIONS: Her home medications included: - aspirin 81 mg daily - atorvastatin 40 mg daily - citalopram 10 mg daily - Plavix 75 mg daily - fludrocortisone 0.1 mg once a day - folic acid 1 mg daily - magnesium chloride 64 mg three times a day - metformin 500 mg daily - midodrine 2.5 mg three times a day - prednisone 10 mg daily - multivitamin one tablet daily - thiamine 100 mg daily ALLERGIES: No known drug allergies. PERSONAL AND SOCIAL HISTORY: Patient is chronic smoker and also has history of alcohol use in the past. No history of drug use. Psychosocial history is significant for schizophrenia. REVIEW OF SYSTEMS: At the time of my visit the patient is lying in the bed comfortably. She was in the bathroom a short while ago and blood pressure was low while she was on the toilet. She denies any dizziness or lightheadedness and was able to walk back to the bed. She denies any fever or chills. Cardiovascular system is significant for history of hypotension. She had an echocardiogram done during this admission which was unremarkable. Respiratory system is significant for COPD and right upper lobe small cell carcinoma. She has lost to followup. Ears, nose and throat unremarkable. GI system is negative for nausea, vomiting or diarrhea. system is negative for dysuria or hematuria. Her Mcneil catheter was removed at about 11 a.m. today by nursing staff. Musculoskeletal system is negative for leg edema. She denies any significant difficulty ambulating. Neurological system is negative for seizures or stroke. Psychosocial system is significant for history of schizophrenia. She reports that she drinks excessive amount of liquids as she feels thirsty. Hematological system is negative for any easy bruising or excessive bleeding. PHYSICAL EXAMINATION: Temperature 97.3 degrees Fahrenheit, heart rate 100 per minute and respiratory rate 24 per minute. Blood pressure 81/53 mmHg sitting and 91/69 mmHg supine. Oxygen saturation 90% on room air. Head is atraumatic. Neck is supple and without any obvious JVD. She has a central line in right side of neck. Oral mucosa is somewhat dry without any thrush or ulcers. Pupils equal and reactive to light and sclera is anicteric. Extraocular movements are intact. Heart exam reveals tachycardia. Lungs clear to auscultation. She has diminished breath sounds on the right side. Abdomen soft and nontender. Bowel sounds are normal. Extremities without any cyanosis or clubbing. Skin has no rash or ulcers. Neurologically she is grossly intact. LABORATORY DATA: Today her WBC count is 24.6, hemoglobin 13.7 and hematocrit 40. Platelets 247. Sodium is 136, potassium 4.3, CO2 33, BUN 12 and creatinine 0.38. Glucose 71 and calcium 8.9. Yesterday her serum osmolality was 286 and 288 at two different times. Urine osmolality was 447 yesterday, while it was 279 on 04/06/2019. Her random urine sodium was 85 and random urine creatinine was 14.7 on 04/06/2019 and 38.2 on 04/07/2019. Urinalysis showed specific gravity of 1.010, 1+ glucose and no blood or protein. Serum osmolality was 284 on 04/06/2019 while her serum sodium was 139, potassium 2.5, BUN 8 and creatinine 0.42. Her intake and output records from last few days showed total intake of 3.35 liters on 04/05/2019 and output 4.85 liters, while on 04/06/2019 and she had an intake of 6.4 liters and output of 4.8 liters. On 04/07/2019, intake was 3.0 liters and output 4.0 liters. Nursing staff reports that today her Mcneil catheter was removed at 11 a.m. and in last 3 hours she has no urine output. A bladder scan was done which did not show any urine in the bladder. Prior to this her total intake today has been recorded at about 1500 and output 2275 mL. PROBLEMS: 1. Hypotension. Most likely this is related to her adrenal insufficiency and possible hypovolemia. She clinically looks somewhat volume depleted. She did have a negative fluid balance of 1 liter yesterday. I am going to give her 1 liter of normal saline and see if her blood pressure improves. She has been on chronic replacement therapy due to her adrenal insufficiency. We may need to consider increasing the dose of her fludrocortisone to 0.1 mg twice a day. 2. Diabetes insipidus. I am not sure if this is diabetes insipidus as the patient also has history of obsessive compulsive drinking due to her psychiatric issues. She has been inconsistent urine output as she has been negative some days and positive some days. Her serum osmolality remains in the low normal range and does not seem to have any excessive urine output today. Her Mcneil catheter was removed about 3 hours prior to my visit and she had no urine output since then. A bladder scan was done in my presence, which did not show any urine in the bladder. We will monitor her today and see how she does. I would not suggest any further workup for diabetes like water deprivation test as the patient seems to be already clinically volume depleted and would put her at high risk for hypotension. We will monitor her urine output for next 24 hours and see how she does. 3. Hypokalemia. She does have history of recurrent hypokalemia and has been on chronic potassium supplement. I would suggest to continue with potassium supplementation and monitoring of her potassium periodically. Thank you for involving me in the evaluation of Ms. Simmons. I will follow her along with you. SHALA
[2019-04-09] MEDS ORDERED: KCL 20MEQ in NS 1000ML 1,000 ML IV SCH (01:00)
[2019-04-09] MEDS: SODIUM CHLORIDE 0.9% INJ 10 ML SYR IV SCH ×2 (05:06→14:00)
[2019-04-09] MEDS: SLF 3 ML SYR IV SCH ×2 (05:07→14:00)
[2019-04-09 06:00] VITALS: BP 117/88
[2019-04-09 06:16] LABS: HEMATOCRIT 37.2 % (36.0-47.0); HEMOGLOBIN 12.6 g/dl (12.0-15.5); MEAN CORPUSCULAR HEMOGLOBIN 31.2 pg (27.0-33.0); MEAN CORPUSCULAR HGB CONC 33.9 g/dl (32.0-36.5); MEAN CORPUSCULAR VOLUME 92.1 fl (80.0-96.0); PLATELET COUNT, AUTOMATED 247 10^3/uL (150-450); RED BLOOD COUNT 4.04 10^6/uL (4.00-5.40); WHITE BLOOD COUNT 24.3 10^3/uL (4.0-10.0)
[2019-04-09 06:36] LABS: BLOOD UREA NITROGEN 12 MG/DL (7-18); CALCIUM LEVEL 8.1 MG/DL (8.8-10.2); CARBON DIOXIDE LEVEL 33 MEQ/L (21-32); CHLORIDE LEVEL 101 MEQ/L (98-107); CREATININE FOR GFR 0.38 MG/DL (0.55-1.30); GLOMERULAR FILTRATION RATE > 60.0 (>45); GLUCOSE, FASTING 72 MG/DL (70-100); MAGNESIUM LEVEL 1.9 MG/DL (1.8-2.4); SODIUM LEVEL 139 MEQ/L (136-145)
[2019-04-09] MEDS: HumaLOG INSULIN (NovoLOG) PER UNIT SC SCH ×4 (07:30→20:15)
[2019-04-09] MEDS ORDERED: POTASSIUM CHLORIDE 10 MEQ SR TABLET PO ONE (08:00)
[2019-04-09] MEDS: HYDROCORTISONE 10 MG TAB PO SCH (08:22)
[2019-04-09] MEDS: MAGNESIUM CHLORIDE 64 MG TABCR (SLO MAG) PO SCH ×3 (08:22→20:14)
[2019-04-09] MEDS: THIAMINE 100 MG TAB PO SCH (08:23)
[2019-04-09] MEDS: CLOPIDOGREL 75 MG TAB PO SCH (08:23)
[2019-04-09] MEDS: DOCUSATE SODIUM 100 MG CAP PO SCH ×2 (08:23→20:14)
[2019-04-09] MEDS: MIDODRINE 5 MG TAB PO SCH ×3 (08:23→16:45)
[2019-04-09] MEDS: FOLIC ACID 1 MG TAB PO SCH (08:23)
[2019-04-09] MEDS: ATORVASTATIN 20 MG TAB PO SCH (08:23)
[2019-04-09] MEDS: HEPARIN SOD (PORCINE) 5000 UNITS/ML VIAL SC SCH ×2 (08:24→20:14)
[2019-04-09] MEDS: FLUDROCORTISONE ACETATE 0.1 MG TAB PO SCH (08:24)
[2019-04-09] MEDS: ASPIRIN 81 MG ENTERIC TAB PO SCH (08:24)
[2019-04-09] MEDS: CitaloPRAM (CeleXA) 10 MG TABLET PO SCH (08:24)
[2019-04-09] MEDS ORDERED: POTASSIUM CHLORIDE 10 MEQ SR TABLET PO SCH (09:00)
[2019-04-09 11:16] LABS: APPEARANCE, URINE CLEAR (CLEAR); BACTERIA, URINE AUTO 1+ (NEGATIVE); BILIRUBIN, URINE AUTO NEGATIVE (NEGATIVE); BLOOD, URINE BLOOD 2+ (NEGATIVE); CALCIUM OXALATE CRYSTALS SMALL; COLOR, URINE YELLOW (YELLOW); GLUCOSE, URINE (UA) AUTO NEGATIVE (NEGATIVE); KETONE, URINE AUTO NEGATIVE (NEGATIVE); LEUKOCYTE ESTERASE, URINE AUTO 2+ (NEGATIVE); MUCUS, URINE SMALL (NEGATIVE); NITRITE, URINE AUTO NEGATIVE (NEGATIVE); PROTEIN, URINE AUTO NEGATIVE (NEGATIVE); RBC, URINE AUTO 88 /HPF (0-3); SPECIFIC GRAVITY URINE AUTO 1.012 (1.002-1.035); SQUAMOUS EPITHELIAL CELL UR AU 2 /HPF (0-6); UROBILINOGEN, URINE AUTO 0.2 mg/dL (0.0-2.0); WBC, URINE AUTO 114 /HPF (0-3)
[2019-04-09 11:38] LABS: CREATININE,RANDOM URINE 61.2 MG/DL; SODIUM,RANDOM URINE 129 MEQ/L
--- NOTE | 2019-04-09 12:15 | IPNPDOC ---
Subjective CC/HPI The patient is a 63-year-old female admitted with a reason for visit of Adrenal Insufficiency Dizziness Hypotension. Events since last encounter Patient seen this AM at bedside. No acute events overnight. She had 2-3 episodes of urinary incontinence. She states she is normally able to urinate on her own at home. Denies any fevers, chills. Objective Physical Examination General Exam: Alert, Cooperative, No Acute Distress EYE EXAM: EOMI ENT EXAM: Atraumatic, Other ENT (Central line in place on right side of her neck.) Chest Exam: Clear to auscultation, Normal air movement Heart Exam: Rate Normal, Normal S1, Normal S2; No: Gallops, Murmurs, Rubs Extremity Exam: No: Edema Vital Signs/I&O Vital Signs Date Time Temp Pulse Resp B/P (MAP) Pulse Ox O2 Delivery O2 Flow Rate FiO2 04/09/19 06:00 97.8 92 18 117/88 (98) 98 04/08/19 22:00 Room Air 04/05/19 04:00 2.0 I&O- Last 24 Hours up to 6 AM 04/09/19 06:00 Intake Total 5016 ml Output Total 1175 ml Balance 3841 ml Laboratory Data Labs 24H Laboratory Tests 2 04/08/19 17:11: Bedside Glucose (Misc Panel) 132H 04/08/19 18:09: Anion Gap 8, Glomerular Filtration Rate > 60.0, Osmolality 294, Calcium Level 8.0L, Phosphorus Level 4.3, Magnesium Level 1.9, Albumin 2.8L 04/08/19 20:03: Bedside Glucose (Misc Panel) 167H 04/09/19 05:22: Anion Gap 5L, Glomerular Filtration Rate > 60.0, Calcium Level 8.1L, Magnesium Level 1.9, Nucleated Red Blood Cells % (auto) 0.1H 04/09/19 10:37: Urine Color YELLOW, Urine Appearance CLEAR, Urine pH 7.0, Urine Specific Drums 1.012, Urine Protein NEGATIVE, Urine Glucose (Auto)(UA) NEGATIVE, Urine Ketones (Auto) NEGATIVE, Urine Blood 2+H, Urine Nitrite NEGATIVE, Urine Bilirubin NEGATIVE, Urine Urobilinogen 0.2, Urine Leukocyte Esterase (Auto) 2+H, Urine WBC (Auto) 114H, Urine RBC (Auto) 88H, Urine Hyaline Casts (Auto) 0, Urine Bacteria (Auto) 1+H, Urine Squamous Epithelial Cells 2, Urine Calcium Oxalate Cryst (Auto) SMALL, Urine Mucus (Auto) SMALL, Urine Sperm (Auto) , Urine Random Creatinine 61.2, Urine Random Sodium 129 04/09/19 11:46: Bedside Glucose (Misc Panel) 165H CBC/BMP Laboratory Tests 04/08/19 18:09 04/09/19 05:22 FSBS Laboratory Tests Test 04/08/19 17:11 04/08/19 20:03 04/09/19 11:46 Range/Units Bedside Glucose (Misc Panel) 132 167 165 80-115 MG/DL Current Medications Current Medications Medications (Trade) Dose Ordered Sig/Rowena Route PRN Reason Start Time Stop Time Status Last Admin Dose Admin Acetaminophen (Tylenol Tab) 650 mg Q4H PRN PO PAIN OR FEVER 04/03/19 14:00 Albuterol Sulfate (Proventil, Ventolin Hfa) 2 puff Q6H PRN INH SHORTNESS OF BREATH 04/03/19 14:00 Aspirin (Ecotrin) 81 mg DAILY PO 04/03/19 09:00 04/09/19 08:24 Atorvastatin Calcium (Lipitor) 40 mg DAILY PO 04/03/19 09:00 04/09/19 08:23 Citalopram Hydrobromide (CeleXA) 10 mg DAILY PO 04/03/19 09:00 04/09/19 08:24 Clopidogrel Bisulfate (PLAVix) 75 mg DAILY PO 04/03/19 09:00 04/09/19 08:23 Dextrose (Dextrose 50%) 25 ml ASDIRECTED PRN IV SEE LABEL COMMENTS 04/04/19 07:15 Docusate Sodium (Colace) 100 mg BID PO 04/03/19 21:00 04/09/19 08:23 Fludrocortisone Acetate (Florinef) 0.05 mg QPM PO 04/03/19 21:00 04/03/19 14:41 DC Fludrocortisone Acetate (Florinef) 0.1 mg QAM PO 04/03/19 16:00 04/09/19 08:24 Folic Acid (Folic Acid) 1 mg DAILY PO 04/03/19 09:00 04/09/19 08:23 Glucagon (Glucagon) 1 mg ASDIRECTED PRN SC SEE LABEL COMMENTS 04/04/19 07:15 Glucose (Glucose) 16 GM ASDIRECTED PRN PO SEE LABEL COMMENTS 04/04/19 07:15 Heparin Sodium (Heparin Lock Flush 10units/ml) 10 units ASDIRECTED PRN IV SEE LABEL COMMENTS 04/05/19 19:45 04/07/19 20:43 Heparin Sodium (Heparin Lock Flush 10units/ml) 10 units HLF IV 04/05/19 22:00 04/09/19 05:06 Heparin Sodium (Porcine) (Heparin) 5,000 units Q12H SC 04/03/19 21:00 04/09/19 08:24 Home Med (Med Rec Complete!) ASDIRECTED XX 04/03/19 14:00 04/03/19 13:55 DC Hydrocortisone (A-Hydrocort) 100 mg BID IV 04/04/19 09:00 04/05/19 06:52 DC 04/04/19 20:45 Hydrocortisone (A-Hydrocort) 100 mg BID IV 04/06/19 09:00 04/07/19 07:31 DC 04/06/19 20:48 Hydrocortisone (A-Hydrocort) 100 mg Q6H IV 04/03/19 12:00 04/04/19 11:32 DC 04/04/19 05:15 Hydrocortisone (A-Hydrocort) 100 mg TID IV 04/05/19 07:00 04/06/19 07:06 DC 04/05/19 20:36 Hydrocortisone (Cortef) 20 mg DAILY@1700 PO 04/07/19 17:00 04/08/19 17:16 Hydrocortisone (Cortef) 60 mg QAM PO 04/07/19 09:00 04/09/19 08:22 Insulin Human Lispro (HumaLOG INSULIN) SEE PROTOCOL TABLE AC SC 04/04/19 07:30 04/08/19 17:17 Insulin Human Lispro (HumaLOG INSULIN) See Protocol Table QHS SC 04/04/19 21:00 04/04/19 22:02 Magnesium Chloride (Slow-Mag) 64 mg TID PO 04/03/19 16:00 04/09/19 08:22 Midodrine (Proamatine) 2.5 mg TID PO 04/03/19 16:00 04/08/19 15:11 DC 04/08/19 09:09 Midodrine (Proamatine) 5 mg TID@0800,1200,1600 PO 04/08/19 16:00 04/09/19 08:23 Norepinephrine Bitartrate 8 mg/ Dextrose 500 ml @ 37.5 mls/hr [id number] IV 04/04/19 13:00 04/08/19 08:10 DC 04/06/19 09:37 Potassium Chloride 20 meq/ IV Miscellaneous Supplies 100 ml @ 100 mls/hr 0400,0500 IV 04/08/19 04:00 04/08/19 09:00 DC 04/08/19 05:42 Potassium Chloride/Sodium Chloride 1,000 ml @ 100 mls/hr Q10H IV 04/09/19 01:00 04/09/19 10:47 DC 04/09/19 00:28 Potassium Chloride (K-Brittney 20 Meq Powder Packet) 60 meq Q6H PO 04/06/19 06:00 04/06/19 06:01 DC 04/06/19 05:35 Potassium Chloride (Micro-K Extencaps) 40 meq DAILY PO 04/06/19 09:00 04/05/19 12:18 DC Sodium Chloride 1,000 ml @ 80 mls/hr [id number] IV 04/05/19 16:45 04/06/19 12:13 DC 04/06/19 04:29 Sodium Chloride 1,000 ml @ 100 mls/hr Q10H IV 04/08/19 15:00 04/09/19 00:59 DC 04/08/19 14:18 Sodium Chloride 1,000 ml @ 1,000 mls/hr Q1H IV 04/04/19 12:30 04/04/19 14:41 DC 04/04/19 13:50 Sodium Chloride (Saline Lock Flush) 2 ml ASDIRECTED PRN IV SEE LABEL COMMENTS 04/03/19 16:15 04/07/19 20:43 Sodium Chloride (Saline Lock Flush) 2 ml SLF IV 04/03/19 22:00 04/08/19 05:42 Sodium Chloride (Saline Lock Flush) 10 ml ASDIRECTED PRN IV SEE LABEL COMMENTS 04/05/19 19:45 04/07/19 20:43 Sodium Chloride (Saline Lock Flush) 10 ml SLF IV 04/05/19 22:00 04/09/19 05:06 Thiamine HCl (Thiamine HCl) 100 mg DAILY PO 04/03/19 09:00 04/09/19 08:23 Allergies Coded Allergies: No Known Allergies (Unverified , 03/27/19) Assessment/Plan Date Seen The patient was seen on 04/09/19 at 12:01. Plan / VTE VTE Prophylaxis Ordered?: Yes Plan Orders past 48 Hours see emr Plan Text 1. Hypotension. This seems to have resolved as she had adequate blood pressures overnight after her liter of fluid and she does not seem depleted today on exam. Will defer to endocrinology as to whether or not she will need her fludrocortisone increased. Should that happen I also recommend starting patient on chronic potassium repletion to ensure the patient does not become hypokalemic. 2. Diabetes insipidus. Patient had incontinent voids overnightx3. Spoke with patient who states she is typically able to void on her own and advised her to try and do this rather than urinate into the diaper. Will continue to monitor her urine output, but since getting her fluids it seems like she has been urinating well and her blood pressures are improving. 3. Hypokalemia. She does have history of recurrent hypokalemia and has been on chronic potassium supplement. I would suggest to continue with potassium supplementation and monitoring of her potassium periodically. GME ATTESTATION GME ATTESTATION My faculty preceptor for this patient encounter was physically present during the encounter and was fully available. All aspects of the patient interview, examination, medical decision making process, and medical care plan development were reviewed and approved by the faculty preceptor. The faculty preceptor is aware and concurs with the plan as stated in the body of this note and will attest to such by his/her cosignature. FAY SORIANO DO Apr 09, 2019 12:15
[2019-04-09 13:35] LABS: OSMOLALITY URINE 507 MOSM/KG (500-800)
--- NOTE | 2019-04-09 13:53 | IPNPDOC ---
Text Note Date of Service The patient was seen on 04/09/19. NOTE Subjective: No any acute events overnight. Blood pressure is stable patient, polyuria resolved. Patient has a good appetite Objective: General Exam: Positive: Alert, Cooperative, Other (flat affect) Eye Exam: Positive: PERRLA, Conjunctiva & lids normal ENT Exam: Positive: Jugular central line in place Neck Exam: Positive: Supple; Negative: JVD Chest Exam: Positive: Clear to auscultation, Other (crackles bilaterally) Heart Exam: Positive: Rate Normal Telemetry: Positive: No significant arrhythmia Abdomen Exam: Positive: Normal bowel sounds Extremity Exam: Negative: Clubbing, Cyanosis Skin Exam: Positive: Nl turgor and temperature Neuro Exam: Positive: Strength at 5/5 X4 ext, Cranial Nerves 3-12 NL Psych Exam: Positive: Oriented x 3 Patient is 63 years old female with past medical history of small cell lung carcinoma diagnosed in August 2016 in her right upper lobe, noncompliant to treatment and she lost follow-up, COPD, adrenal insufficiency, schizophrenia, chronic hypertension, polyarthritis, tobacco abuse, presented to the hospital with low blood pressure around 70/40 and dizziness. Patient received hydrocortisone 100 mg every 6 IV and fludrocortisone 0.1 by mouth. On on 04/04 patient developed profound hypotension with systolic blood pressure around 40, she was transferred to ICU, central line was placed, IV Levophed started. During ICU stay patient developed polyuria and polydipsia there was concern for nephrogenic versus central diabetes insipidus. Brain MRI was negative for pituitary lesion. Subsequently, hypotension resolved, patient was transferred to general floor. Adrenal insufficiency Status: Acute Problem Text: Patient has a history of noncompliance to medication. Patient does not have obvious source of infection, lungs are clear. Increased leukocytes count most likely secondary to steroid treatment. Patient is afebrile, lactic acid within normal limit She presented with profound hypotension most likely secondary to adrenal crisis On on 04/04 patient developed profound hypotension with systolic blood pressure around 40, she was transferred to ICU, central line was placed, IV Levophed started. Patient continues to have low blood pressure, continue with IV Levophed, continue steroids. It's still unclear etiology why patient developed profound hypotension, patient nontoxic, afebrile, does not have any acute bleeding, hemoglobin is stable, chest x-ray clear, she was not volume depleted, T4 within normal limit, previous TSH within normal limit. Patient does not have any pain I talked to Dr. George, who is creative arts therapist , she promised to consult patient on 04/08/19 On 04/07/19 I switched IV hydrocortisone to by mouth hydrocortisone. Blood pressure became stable since 04/07/19. 04/08/19 fludrocortisone was increased to 0.2 Hypotension Off Levophed Continue midodrine Polydipsia and polyuria On 04/07/19 patient developed polydipsia with polyuria, urine osmolality 279, serum was 284. 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 MRI of the brain did not show any significant pituitary lesion but she does have evidence of possible stenosis or occlusion in her right ICA. FENA was 1.28. Patient will need water deprivation test to rule out diabetes insipidus after initial stabilization (2) Weakness generalized Status: Acute Problem Text: Secondary to adrenal insufficiency (3) Small cell lung cancer, right upper lobe Status: Chronic Problem Text: Follow-up with oncologist in the outpatient settings (4) Diabetes mellitus Status: Chronic Problem Text: Insulin sliding scale Diabetes diet (5) Fracture of ribs, multiple Status: Chronic Problem Text: Patient does not complain of chest pain Pain management when necessary Incentive spirometry VS,Lisa, I+O VS, Lisa, I+O Laboratory Tests 04/08/19 18:09 04/09/19 05:22 Vital Signs Date Time Temp Pulse Resp B/P (MAP) Pulse Ox O2 Delivery O2 Flow Rate FiO2 04/09/19 06:00 97.8 92 18 117/88 (98) 98 04/08/19 22:00 Room Air 04/05/19 04:00 2.0 I&O- Last 24 Hours up to 6 AM 04/09/19 06:00 Intake Total 5016 ml Output Total 1175 ml Balance 3841 ml MARIA DE JESUS COSTA DO Apr 09, 2019 13:53
[2019-04-09 14:00] VITALS: BP 104/63
[2019-04-09] MEDS: HYDROCORTISONE 5MG TABLET PO SCH (16:46)
[2019-04-09 22:00] VITALS: BP 113/64
[2019-04-10 06:00] VITALS: BP 133/78
[2019-04-10 06:00] LABS: HEMATOCRIT 36.8 % (36.0-47.0); HEMOGLOBIN 12.8 g/dl (12.0-15.5); MEAN CORPUSCULAR HEMOGLOBIN 32.5 pg (27.0-33.0); MEAN CORPUSCULAR HGB CONC 34.8 g/dl (32.0-36.5); MEAN CORPUSCULAR VOLUME 93.4 fl (80.0-96.0); PLATELET COUNT, AUTOMATED 232 10^3/uL (150-450); RED BLOOD COUNT 3.94 10^6/uL (4.00-5.40); WHITE BLOOD COUNT 23.7 10^3/uL (4.0-10.0)
[2019-04-10 06:31] LABS: BLOOD UREA NITROGEN 13 MG/DL (7-18); CALCIUM LEVEL 8.5 MG/DL (8.8-10.2); CARBON DIOXIDE LEVEL 33 MEQ/L (21-32); CHLORIDE LEVEL 98 MEQ/L (98-107); CREATININE FOR GFR 0.44 MG/DL (0.55-1.30); GLOMERULAR FILTRATION RATE > 60.0 (>45); GLUCOSE, FASTING 79 MG/DL (70-100); POTASSIUM SERUM 2.9 MEQ/L (3.5-5.1); SODIUM LEVEL 138 MEQ/L (136-145)
[2019-04-10] MEDS ORDERED: POTASSIUM CHLORIDE 10 MEQ SR TABLET PO ONE (06:45)
--- NOTE | 2019-04-10 06:57 | IPNPDOC ---
Text Note Date of Service The patient was seen on 04/10/19. NOTE Subjective: -No any acute events overnight. -Remains stably normotensive -Taking good PO, no polyuria Objective: General Exam: Alert, Cooperative Eye Exam: PERRLA, Conjunctiva & lids normal ENT Exam: Clear posterior oropharynx Neck Exam: Supple, no JVD Chest Exam: Bibasilar crackles, otherwise moving air well Heart Exam: RRR, no noted murmurs, rubs or gallops Telemetry: No significant ectopy Abdomen Exam: Normal bowel sounds, soft, NTND, no hepatosplenomegaly Extremity Exam: WWP, no edema Skin Exam: Normal turgor and temperature Neuro Exam: Strength at 5/5 X4 ext, Cranial Nerves 3-12 WNL Psych Exam: Oriented x 3 63 years old woman with small cell lung carcinoma diagnosed in 08/2016 in her right upper lobe, noncompliant with treatment and lost follow-up, COPD, adrenal insufficiency, schizophrenia, chronic hypertension, polyarthritis, tobacco abuse, who presented to the hospital with hypotension to 70/40 and dizziness s/p hydrocortisone 100 mg every 6 IV and fludrocortisone 0.1 by mouth, c/b shock with profound hypotension on 04/04 requiring ICU transfer IJ TLC placement and pressor support. Her ICU stay was further c/b polyuria and polydipsia w/ c/f nephrogenic versus central diabetes insipidus s/p brain MRI that was negative for pituitary lesion, now pending endocrinology consult. At this time, she remains on steroids and hypotension resolved after fluid resuscitation and was transferred back to the floor, pending endocrinology recs. Shock: 2/2 acute adrenal insufficiency with adrenal crisis -Patient has a history of noncompliance to medication. -No obvious source of infection, lungs are clear, afebrile, lactic acid within normal limit. -Her leukocytosis is most likely secondary to steroid treatment. -T4 within normal limit, previous TSH within normal limit. -Outgoing hospitalist spoke with Dr. George, who is the security incident response engineer and is to officially evaluate the patient. -On 04/07/19 switched IV hydrocortisone to PO hydrocortisone. Blood pressure has remained stable since 04/07/19. On 04/08/19 fludrocortisone was increased to 0.2 -Continue midodrine Polydipsia and polyuria On 04/07/19 patient developed polydipsia with polyuria, urine osmolality 279, serum was 284. with a concern for central diabetes insipidus. -MRI of the brain did not show any significant pituitary lesion but she does have evidence of possible stenosis or occlusion in her right ICA. -FeNa was 1.28. Patient will need water deprivation test to rule out diabetes insipidus after initial stabilization Deconditioning: -Secondary to adrenal insufficiency and acute illness -treatment as above, as well as PT/OT evaluation and treatment Small cell lung cancer, right upper lobe: -Follow-up with oncologist in the outpatient settings Diabetes mellitus -Insulin sliding scale -Consistent carb diet Prior history of multiple rib fractures: No complaint of chest well pain Pain management when necessary Incentive spirometry Prior CVA: -ASA, plavix DVT prophylaxis: heparin 5000U Q12H Dispo: pending PT/OT, endocrine consult, SW consult VS,Lisa, I+O VS, Lisa, I+O Laboratory Tests 04/10/19 05:06 Vital Signs Date Time Temp Pulse Resp B/P (MAP) Pulse Ox O2 Delivery O2 Flow Rate FiO2 04/09/19 22:00 97.8 79 18 113/64 (80) 93 Room Air 04/05/19 04:00 2.0 I&O- Last 24 Hours up to 6 AM 04/10/19 06:00 Intake Total 1570 ml Output Total 875 ml Balance 695 ml VIRAJ RYAN MD Apr 10, 2019 06:57
[2019-04-10] MEDS: HumaLOG INSULIN (NovoLOG) PER UNIT SC SCH ×4 (07:30→20:32)
[2019-04-10] MEDS: MIDODRINE 5 MG TAB PO SCH ×3 (08:00→16:33)
[2019-04-10] MEDS: MAGNESIUM CHLORIDE 64 MG TABCR (SLO MAG) PO SCH ×3 (10:01→20:51)
[2019-04-10] MEDS: FLUDROCORTISONE ACETATE 0.1 MG TAB PO SCH (10:02)
[2019-04-10] MEDS: HYDROCORTISONE 10 MG TAB PO SCH (10:02)
[2019-04-10] MEDS: ASPIRIN 81 MG ENTERIC TAB PO SCH (10:03)
[2019-04-10] MEDS: CitaloPRAM (CeleXA) 10 MG TABLET PO SCH (10:03)
[2019-04-10] MEDS: ATORVASTATIN 20 MG TAB PO SCH (10:03)
[2019-04-10] MEDS: DOCUSATE SODIUM 100 MG CAP PO SCH ×2 (10:03→20:50)
[2019-04-10] MEDS: CLOPIDOGREL 75 MG TAB PO SCH (10:03)
[2019-04-10] MEDS: POTASSIUM CHLORIDE 10 MEQ SR TABLET PO SCH (10:03)
[2019-04-10] MEDS: FOLIC ACID 1 MG TAB PO SCH (10:03)
[2019-04-10] MEDS: HEPARIN SOD (PORCINE) 5000 UNITS/ML VIAL SC SCH ×2 (10:04→20:51)
[2019-04-10] MEDS: KCL 20MEQ in NS 1000ML 1,000 ML IV SCH ×2 (11:02→20:59)
[2019-04-10] MEDS: THIAMINE 100 MG TAB PO SCH (11:03)
--- NOTE | 2019-04-10 13:00 | IPN ---
DATE: 04/10/2019 Miss Simmons is seen this morning on her bedside. She is feeling well and denies any complaints. Her blood pressure has improved and remained stable. Her fludrocortisone dose has been increased to 0.2 mg daily. She also remains on her chronic steroid therapy for adrenal insufficiency. The patient denies any nausea, vomiting, fever or chills. PHYSICAL EXAMINATION: Temperature 98.1 degrees Fahrenheit, heart rate 78 per minute and respiratory rate 18 per minute. Blood pressure 133/78 mmHg and oxygen saturation 93% on room air. Head is atraumatic. Neck is supple and without JVD or thyroid enlargement. Central line from the right side of her neck has been removed. Heart sounds regular and lungs clear to auscultation. Abdomen soft and nontender. Bowel sounds normal. Extremities without any cyanosis or clubbing. Her urine output is not recorded accurately as she has been incontinent at times. Today's labs show WBC count 23.7, hemoglobin 12.8 and hematocrit 36.8. Sodium 138, potassium 2.9, CO2 33, BUN 13 and creatinine 0.44. Calcium level is 8.5 and magnesium 2.0. PROBLEMS: 1. Hypotension with adrenal insufficiency. Blood pressure seems to have improved with increased dose of midodrine to 5 mg t.i.d. and increased dose of fludrocortisone 0.2 mg daily. 2. Hypokalemia. The patient will need daily potassium supplement of at least 40-80 mEq. She will need to be compliant as she will be very high risk for severe hypokalemia due to use of fludrocortisone. I have discussed with the patient about her compliance and she understands to take her medications every day. 3. Acute kidney injury, probably was related to hypotension and hypovolemia. Her kidney function is now stable at baseline. She has adequate oral intake and increased dose of fludrocortisone is helping her volume status. DISPOSITION: From a renal standpoint, the patient can be discharged to home when stable from other medical issues. I am signing off her case.
[2019-04-10 14:00] VITALS: BP 130/74
[2019-04-10] MEDS: HYDROCORTISONE 5MG TABLET PO SCH (18:03)
[2019-04-10 22:00] VITALS: BP 113/62
[2019-04-11 06:00] VITALS: BP 114/57
[2019-04-11 06:12] LABS: HEMATOCRIT 37.1 % (36.0-47.0); HEMOGLOBIN 12.8 g/dl (12.0-15.5); MEAN CORPUSCULAR HEMOGLOBIN 32.3 pg (27.0-33.0); MEAN CORPUSCULAR HGB CONC 34.5 g/dl (32.0-36.5); MEAN CORPUSCULAR VOLUME 93.7 fl (80.0-96.0); PLATELET COUNT, AUTOMATED 242 10^3/uL (150-450); RED BLOOD COUNT 3.96 10^6/uL (4.00-5.40); WHITE BLOOD COUNT 22.5 10^3/uL (4.0-10.0)
[2019-04-11 06:28] LABS: BLOOD UREA NITROGEN 12 MG/DL (7-18); CALCIUM LEVEL 8.4 MG/DL (8.8-10.2); CARBON DIOXIDE LEVEL 34 MEQ/L (21-32); CHLORIDE LEVEL 101 MEQ/L (98-107); CREATININE FOR GFR 0.38 MG/DL (0.55-1.30); GLOMERULAR FILTRATION RATE > 60.0 (>45); GLUCOSE, FASTING 78 MG/DL (70-100); MAGNESIUM LEVEL 1.8 MG/DL (1.8-2.4); POTASSIUM SERUM 3.3 MEQ/L (3.5-5.1); SODIUM LEVEL 139 MEQ/L (136-145)
[2019-04-11] MEDS: KCL 20MEQ in NS 1000ML 1,000 ML IV SCH ×4 (06:58→23:03)
[2019-04-11] MEDS: HumaLOG INSULIN (NovoLOG) PER UNIT SC SCH ×4 (07:30→20:51)
--- NOTE | 2019-04-11 08:52 | IPNPDOC ---
Text Note Date of Service The patient was seen on 04/11/19. NOTE Subjective: -No any acute events overnight -Remains stably normotensive -Taking good PO, no polyuria noted, reports polydipsia -Spoke with Dr. George (endocrinology) this morning who reported that she does not do inpatient consults and had peripherally been consulted. On discussing Ms. Simmons's course she suggested a downgrading her steroids back to pred 10 daily and fludra 0.1 daily for discharge, and GOC discussions given the LTFU and noncompliance issues -On my meeting Ms. Simmons yesterday, she is AOx3 but exhibits low understanding of her clinical conditions and consequences of non compliance as well as low order of high function cognition that I would like to discuss with her daughter and sister and if necessary psychiatry. Objective: General Exam: Alert, thin, ill appearing, disheveled Eye Exam: PERRLA, Conjunctiva & lids normal ENT Exam: Clear posterior oropharynx Neck Exam: Supple, no JVD Chest Exam: Bibasilar crackles, otherwise moving air well Heart Exam: RRR, no noted murmurs, rubs or gallops Telemetry: No significant ectopy Abdomen Exam: Normal bowel sounds, soft, NTND, no hepatosplenomegaly Extremity Exam: WWP, no edema Skin Exam: Normal turgor and temperature Neuro Exam: Strength at 5/5 X4 ext, Cranial Nerves 3-12 WNL Psych Exam: Oriented x 3, flat affect, minimal responses 63 years old woman with small cell lung carcinoma diagnosed in 08/2016 in her right upper lobe, noncompliant with treatment and lost follow-up, COPD, adrenal insufficiency, schizophrenia, chronic hypertension, polyarthritis, tobacco abuse, who presented to the hospital with hypotension to 70/40 and dizziness s/p hydrocortisone 100 mg every 6 IV and fludrocortisone 0.1 by mouth, c/b shock with profound hypotension on 04/04 requiring ICU transfer IJ TLC placement and pressor support. Her ICU stay was further c/b polyuria and polydipsia w/ c/f nephrogenic versus central diabetes insipidus s/p brain MRI that was negative for pituitary lesion, now pending endocrinology consult. At this time, she remains on steroids and hypotension resolved after fluid resuscitation and was transferred back to the floor, with endocrinology recommending resumption of her outpatient steroids now that she is through the crisis. Shock: / acute adrenal insufficiency with adrenal crisis -Patient has a history of noncompliance to medication. -No obvious source of infection, lungs are clear, afebrile, lactic acid within normal limit. -Her leukocytosis is most likely secondary to steroid treatment. -T4 within normal limit, previous TSH within normal limit. -On 04/07/19 switched IV hydrocortisone to PO hydrocortisone. Blood pressure has remained stable since 04/07/19. On 04/08/19 fludrocortisone was increased to 0.2 -Continue midodrine -I spoke with Dr. George (endocrinology) who suggested returning to 10mg pred daily instead of twice daily hydrocort in a low adherence patient, and fludra back to 0.1 if tolerated. Polydipsia and polyuria On 04/07/19 patient developed polydipsia with polyuria, urine osmolality 279, serum was 284. with a concern for central diabetes insipidus. -MRI of the brain did not show any significant pituitary lesion but she does have evidence of possible stenosis or occlusion in her right ICA. -FeNa was 1.28. -Much improved, monitor Deconditioning: -Secondary to adrenal insufficiency and acute illness -treatment as above, as well as PT/OT evaluation and treatment Small cell lung cancer, right upper lobe: -Follow-up with oncologist in the outpatient settings Diabetes mellitus -Insulin sliding scale -Consistent carb diet Prior history of multiple rib fractures: No complaint of chest well pain Pain management when necessary Incentive spirometry Prior CVA: -ASA, plavix DVT prophylaxis: heparin 5000U Q12H Dispo: pending PT/OT and discussion with family and care management about safe discharge planning given non compliance and frequent readmissions VS,Lisa, I+O VS, Lisa, I+O Laboratory Tests 04/11/19 05:47 Vital Signs Date Time Temp Pulse Resp B/P (MAP) Pulse Ox O2 Delivery O2 Flow Rate FiO2 04/11/19 06:00 97.8 84 18 114/57 (76) 90 Room Air 04/05/19 04:00 2.0 I&O- Last 24 Hours up to 6 AM 04/11/19 06:00 Intake Total 2340 ml Output Total 740 ml Balance 1600 ml VIRAJ RYAN MD Apr 11, 2019 08:52
[2019-04-11] MEDS: SODIUM CHLORIDE 0.9% INJ 10 ML SYR IV SCH (09:00)
[2019-04-11] MEDS: HEPARIN SOD (PORCINE) 5000 UNITS/ML VIAL SC SCH ×2 (09:26→21:06)
[2019-04-11] MEDS: MAGNESIUM CHLORIDE 64 MG TABCR (SLO MAG) PO SCH ×3 (09:26→21:06)
[2019-04-11] MEDS: ASPIRIN 81 MG ENTERIC TAB PO SCH (09:27)
[2019-04-11] MEDS: CLOPIDOGREL 75 MG TAB PO SCH (09:27)
[2019-04-11] MEDS: POTASSIUM CHLORIDE 10 MEQ SR TABLET PO SCH (09:27)
[2019-04-11] MEDS: HYDROCORTISONE 10 MG TAB PO SCH ×2 (09:28→16:39)
[2019-04-11] MEDS: DOCUSATE SODIUM 100 MG CAP PO SCH ×2 (09:28→21:06)
[2019-04-11] MEDS: CitaloPRAM (CeleXA) 10 MG TABLET PO SCH (09:28)
[2019-04-11] MEDS: FOLIC ACID 1 MG TAB PO SCH (09:29)
[2019-04-11] MEDS: MIDODRINE 5 MG TAB PO SCH ×3 (09:29→16:39)
[2019-04-11] MEDS: ATORVASTATIN 20 MG TAB PO SCH (09:29)
[2019-04-11] MEDS: FLUDROCORTISONE ACETATE 0.1 MG TAB PO SCH (09:29)
[2019-04-11] MEDS: THIAMINE 100 MG TAB PO SCH (09:32)
[2019-04-11] MEDS ORDERED: POTASSIUM CHLORIDE 10 MEQ SR TABLET PO ONE (10:00)
[2019-04-11 13:00] VITALS: BP 78/62
[2019-04-11] MEDS ORDERED: NS 500 ML IV ONE (13:15)
[2019-04-11 14:00] VITALS: BP 90/60
[2019-04-11] MEDS ORDERED: KCL 20MEQ in NS 1000ML 1,000 ML IV SCH (14:15)
[2019-04-11 16:30] VITALS: BP 110/64
[2019-04-11 22:00] VITALS: BP 92/60
[2019-04-11 22:30] VITALS: BP 104/60
[2019-04-12 03:15] VITALS: BP 114/74
[2019-04-12 06:00] VITALS: BP 116/76
[2019-04-12] MEDS: KCL 20MEQ in NS 1000ML 1,000 ML IV SCH ×4 (06:13→23:07)
--- NOTE | 2019-04-12 06:49 | IPNPDOC ---
Text Note Date of Service The patient was seen on 04/12/19. NOTE Subjective: -had episodes of asymptomatic hypotension yesterday afternoon that responded to 500cc bolus and thereafter increasing maintenance fluids to 125cc/hr -Taking good PO, some polyuria noted and patient reporting some polydipsia -Spoke with patient at length about the plan going forward and that the idea of a home discharge has proven unsafe due to her severe illness and fast re- admission. She was not engaged in the conversation with prolonged episodes of silence during the conversation and not answering questions. She did however voice that she would prefer for her sister to be her proxy and not her daughter as noted in the EMR and expressed wanting a home discharge and did not outright decline placement but would be silent when it was insinuated. -Normotensive this morning Objective: General Exam: Alert, thin, ill appearing, pale, disheveled Eye Exam: PERRLA, pale conjunctiva, anicteric ENT Exam: Clear posterior oropharynx Neck Exam: Supple, no JVD Chest Exam: Trace bibasilar crackles, otherwise moving air well Heart Exam: RRR, no noted murmurs, rubs or gallops Telemetry: No significant ectopy Abdomen Exam: Normal bowel sounds, soft, NTND, no hepatosplenomegaly Extremity Exam: WWP, no edema, dry with skin tenting Skin Exam: Normal turgor and temperature Neuro Exam: Strength at 4/5 X4 ext, Cranial Nerves 3-12 WNL Psych Exam: Oriented x 3, flat affect, minimal responses 63 years old woman with small cell lung carcinoma diagnosed in 08/2016 in her right upper lobe, noncompliant with treatment and lost follow-up, COPD, adrenal insufficiency, schizophrenia, chronic hypertension, polyarthritis, tobacco abuse, who presented to the hospital with hypotension to 70/40 and dizziness s/p hydrocortisone 100 mg every 6 IV and fludrocortisone 0.1 by mouth, c/b shock with profound hypotension on 04/04 requiring ICU transfer IJ TLC placement and pressor support. Her ICU stay was further c/b polyuria and polydipsia w/ c/f nephrogenic versus central diabetes insipidus s/p brain MRI that was negative for pituitary lesion that has moderately improved. At this time, she remains on steroids and hypotension mostly resolved after fluid resuscitation with endocrinology recommending resumption of her outpatient steroids now that she is through the crisis, however c/b by episodic hypotension requiring IV fluids and intermittent boluses. Shock: 2/2 acute adrenal insufficiency with adrenal crisis -Patient has a history of noncompliance to medication. -No obvious source of infection, lungs are clear, afebrile, lactic acid within normal limit. -Her leukocytosis is most likely secondary to steroid treatment. -T4 within normal limit, previous TSH within normal limit. -On 04/07/19 switched IV hydrocortisone to PO hydrocortisone. Blood pressure has remained stable since 04/07/19. On 04/08/19 fludrocortisone was increased to 0.2 -Continue midodrine -I spoke with Dr. George (endocrinology) who suggested returning to 10mg pred daily instead of twice daily hydrocort in a low adherence patient, and fludra back to 0.1 if tolerated. However this plan is being delayed by persistent episodes of hypotension that require fluids such as 04/11 afternoon. Polydipsia and polyuria On 04/07/19 patient developed polydipsia with polyuria, urine osmolality 279, serum was 284. with a concern for central diabetes insipidus. -MRI of the brain did not show any significant pituitary lesion but she does have evidence of possible stenosis or occlusion in her right ICA. -FeNa was 1.28. -Much improved from prior, will continue to monitor as she is dry on exam despite fluids and good PO Deconditioning: -Secondary to adrenal insufficiency and acute illness -treatment as above, as well as PT/OT evaluation and treatment Small cell lung cancer, right upper lobe: -Follow-up with oncologist in the outpatient settings Diabetes mellitus -Insulin sliding scale -Consistent carb diet Prior history of multiple rib fractures: Pain management when necessary Incentive spirometry Prior CVA: -ASA, plavix DVT prophylaxis: heparin 5000U Q12H Dispo: pending PT/OT and discussion with family and care management about safe discharge planning given non compliance and frequent readmissions. Also having episodic hypotension and persisting polyuria and polydipsia. VS,Fishbone, I+O VS, Fishbone, I+O Vital Signs Date Time Temp Pulse Resp B/P (MAP) Pulse Ox O2 Delivery O2 Flow Rate FiO2 04/12/19 03:15 114/74 (87) 04/11/19 22:00 97.4 76 16 91 Room Air I&O- Last 24 Hours up to 6 AM 04/12/19 06:00 Intake Total 3915 ml Output Total 400 ml Balance 3515 ml VIRAJ RYAN MD Apr 12, 2019 06:49
[2019-04-12] MEDS: HumaLOG INSULIN (NovoLOG) PER UNIT SC SCH ×4 (07:30→20:35)
[2019-04-12] MEDS: MAGNESIUM CHLORIDE 64 MG TABCR (SLO MAG) PO SCH ×3 (07:56→20:43)
[2019-04-12] MEDS: FOLIC ACID 1 MG TAB PO SCH (07:56)
[2019-04-12] MEDS: HEPARIN SOD (PORCINE) 5000 UNITS/ML VIAL SC SCH ×2 (07:56→20:44)
[2019-04-12] MEDS: ATORVASTATIN 20 MG TAB PO SCH (07:56)
[2019-04-12] MEDS: HYDROCORTISONE 10 MG TAB PO SCH ×2 (07:56→16:38)
[2019-04-12] MEDS: THIAMINE 100 MG TAB PO SCH (07:57)
[2019-04-12] MEDS: DOCUSATE SODIUM 100 MG CAP PO SCH ×2 (07:57→20:44)
[2019-04-12] MEDS: CLOPIDOGREL 75 MG TAB PO SCH (07:57)
[2019-04-12] MEDS: CitaloPRAM (CeleXA) 10 MG TABLET PO SCH (07:57)
[2019-04-12] MEDS: FLUDROCORTISONE ACETATE 0.1 MG TAB PO SCH (07:57)
[2019-04-12] MEDS: ASPIRIN 81 MG ENTERIC TAB PO SCH (07:57)
[2019-04-12] MEDS: POTASSIUM CHLORIDE 10 MEQ SR TABLET PO SCH (07:57)
[2019-04-12] MEDS: SODIUM CHLORIDE 0.9% INJ 10 ML SYR IV SCH ×2 (07:58→08:06)
[2019-04-12] MEDS: MIDODRINE 5 MG TAB PO SCH ×3 (07:58→15:54)
[2019-04-12 14:00] VITALS: BP 98/50
[2019-04-12 14:32] LABS: HEMATOCRIT 34.8 % (36.0-47.0); HEMOGLOBIN 11.7 g/dl (12.0-15.5); MEAN CORPUSCULAR HEMOGLOBIN 32.4 pg (27.0-33.0); MEAN CORPUSCULAR HGB CONC 33.6 g/dl (32.0-36.5); MEAN CORPUSCULAR VOLUME 96.4 fl (80.0-96.0); PLATELET COUNT, AUTOMATED 229 10^3/uL (150-450); RED BLOOD COUNT 3.61 10^6/uL (4.00-5.40); WHITE BLOOD COUNT 19.2 10^3/uL (4.0-10.0)
[2019-04-12 14:50] LABS: BLOOD UREA NITROGEN 16 MG/DL (7-18); CALCIUM LEVEL 8.2 MG/DL (8.8-10.2); CARBON DIOXIDE LEVEL 34 MEQ/L (21-32); CHLORIDE LEVEL 103 MEQ/L (98-107); GLOMERULAR FILTRATION RATE > 60.0 (>45); GLUCOSE, FASTING 127 MG/DL (70-100); MAGNESIUM LEVEL 1.8 MG/DL (1.8-2.4); POTASSIUM SERUM 3.3 MEQ/L (3.5-5.1); SODIUM LEVEL 140 MEQ/L (136-145)
[2019-04-12 22:00] VITALS: BP 90/61
[2019-04-13 06:00] VITALS: BP 109/75
[2019-04-13 06:27] LABS: HEMATOCRIT 33.3 % (36.0-47.0); HEMOGLOBIN 11.3 g/dl (12.0-15.5); MEAN CORPUSCULAR HEMOGLOBIN 31.7 pg (27.0-33.0); MEAN CORPUSCULAR HGB CONC 33.9 g/dl (32.0-36.5); MEAN CORPUSCULAR VOLUME 93.5 fl (80.0-96.0); PLATELET COUNT, AUTOMATED 232 10^3/uL (150-450); RED BLOOD COUNT 3.56 10^6/uL (4.00-5.40)
[2019-04-13 06:50] LABS: BLOOD UREA NITROGEN 11 MG/DL (7-18); CALCIUM LEVEL 7.6 MG/DL (8.8-10.2); CARBON DIOXIDE LEVEL 32 MEQ/L (21-32); CHLORIDE LEVEL 102 MEQ/L (98-107); CREATININE FOR GFR 0.36 MG/DL (0.55-1.30); GLOMERULAR FILTRATION RATE > 60.0 (>45); GLUCOSE, FASTING 79 MG/DL (70-100); MAGNESIUM LEVEL 1.7 MG/DL (1.8-2.4); POTASSIUM SERUM 2.9 MEQ/L (3.5-5.1); SODIUM LEVEL 139 MEQ/L (136-145)
[2019-04-13] MEDS ORDERED: MAG SULF 1GM/100ML (MAG RUN) 1 GM in IV 1 EA IV ONE (07:00)
--- NOTE | 2019-04-13 07:19 | IPNPDOC ---
Text Note Date of Service The patient was seen on 04/13/19. NOTE Subjective: -No acute complaints this morning, remains with flat affect, no active engagement with minimal dialogue Objective: Vitals: see below. Otherwise hemodynamically stable and normotensive over the last 24h General Exam: Alert, thin, ill appearing, pale, disheveled Eye Exam: PERRLA, pale conjunctiva, anicteric ENT Exam: Clear posterior oropharynx, appears dry Neck Exam: Supple, no JVD Chest Exam: Bibasilar crackles, poor effort Heart Exam: RRR, no noted murmurs, rubs or gallops Telemetry: No significant ectopy Abdomen Exam: Normal bowel sounds, soft, NTND, no hepatosplenomegaly Extremity Exam: WWP, no edema, dry with skin tenting Skin Exam: Normal temperature, tenting with dryness Neuro Exam: Strength at 4/5 X4 ext, Cranial Nerves 3-12 WNL Psych Exam: Oriented x 3, flat affect, expressionless with minimal responses 63 years old woman with small cell lung carcinoma diagnosed in 08/2016 in her right upper lobe, noncompliant with treatment and lost to follow-up, COPD, adrenal insufficiency, schizophrenia, chronic hypertension, polyarthritis, tobacco abuse, who presented to the hospital with hypotension to 70/40 and dizziness c/b prolonged shock with profound hypotension requiring ICU transfer for pressor support. Her ICU stay was further c/b polyuria and polydipsia w/ c/f nephrogenic versus central diabetes insipidus s/p brain MRI that was negative for pituitary lesion that has moderately improved. At this time, she remains on steroids and hypotension has resolved with endocrinology recommending resumption of her outpatient steroids now that she is through the crisis, however c/b by episodic hypotension and DI requiring IV fluids and intermittent boluses. Shock: 2/2 adrenal insufficiency with adrenal crisis in the setting of steroid treatment non compliance -Patient has a history of noncompliance to medication. -No obvious source of infection, lungs are clear, afebrile, lactic acid within normal limit. -Her leukocytosis is most likely secondary to steroid treatment. -T4 within normal limit, previous TSH within normal limit. -On 04/07/19 switched IV hydrocortisone to PO hydrocortisone. Blood pressure has remained stable since 04/07/19. On 04/08/19 fludrocortisone was increased to 0.2 -Continue midodrine -I spoke with Dr. George (endocrinology) who suggested returning to 10mg pred daily instead of twice daily hydrocort in a low adherence patient, and fludra back to 0.1 if tolerated. However this plan is being delayed by persistent episodes of hypotension that require fluids such as 04/11 afternoon. Polydipsia and polyuria On 04/07/19 patient developed polydipsia with polyuria, urine osmolality 279, serum was 284. with a concern for central diabetes insipidus. -MRI of the brain did not show any significant pituitary lesion but she does have evidence of possible stenosis or occlusion in her right ICA. -FeNa was 1.28. -Much improved from prior but persistent enough to require maintenance IV fluid s, will continue to monitor as she is dry on exam despite fluids and good PO Electrolyte derrangements: -Likely a consequence of her adrenal insufficiency, aggressive repleting K, Mg and Ca -BID lytes Deconditioning: -Secondary to adrenal insufficiency and acute illness -treatment as above, as well as PT/OT evaluation and treatment Small cell lung cancer, right upper lobe: -Follow-up with oncologist in the outpatient settings Diabetes mellitus -Insulin sliding scale -Consistent carb diet Prior history of multiple rib fractures: Pain management when necessary Incentive spirometry Prior CVA: -ASA, plavix DVT prophylaxis: heparin 5000U Q12H Dispo: pending discussion with her daughter and sister and care management about safe discharge planning given non compliance and frequent readmissions. Also having episodic hypotension and persisting polyuria and polydipsia that would be difficult to manage in a non supervised setting. VS,Arielbone, I+O VS, Fishbone, I+O Laboratory Tests 04/12/19 14:11 04/13/19 06:17 Vital Signs Date Time Temp Pulse Resp B/P (MAP) Pulse Ox O2 Delivery O2 Flow Rate FiO2 04/13/19 06:00 96.9 77 19 109/75 (86) 94 Room Air I&O- Last 24 Hours up to 6 AM 04/13/19 06:00 Intake Total 1375 ml Output Total 350 ml Balance 1025 ml VIRAJ RYAN MD Apr 13, 2019 07:19
[2019-04-13] MEDS: KCL 20MEQ in NS 1000ML 1,000 ML IV SCH ×2 (07:42→16:46)
[2019-04-13] MEDS: MAGNESIUM CHLORIDE 64 MG TABCR (SLO MAG) PO SCH ×3 (08:32→21:03)
[2019-04-13] MEDS: HYDROCORTISONE 10 MG TAB PO SCH ×2 (08:33→16:45)
[2019-04-13] MEDS: FOLIC ACID 1 MG TAB PO SCH (08:33)
[2019-04-13] MEDS: CALCIUM CARBONATE 500 MG CHEW U/D PO SCH ×4 (08:34→21:05)
[2019-04-13] MEDS: ASPIRIN 81 MG ENTERIC TAB PO SCH (08:34)
[2019-04-13] MEDS: FLUDROCORTISONE ACETATE 0.1 MG TAB PO SCH (08:34)
[2019-04-13] MEDS: DOCUSATE SODIUM 100 MG CAP PO SCH ×2 (08:34→21:05)
[2019-04-13] MEDS: THIAMINE 100 MG TAB PO SCH (08:35)
[2019-04-13] MEDS: CLOPIDOGREL 75 MG TAB PO SCH (08:35)
[2019-04-13] MEDS: ATORVASTATIN 20 MG TAB PO SCH (08:35)
[2019-04-13] MEDS: HEPARIN SOD (PORCINE) 5000 UNITS/ML VIAL SC SCH ×2 (08:35→21:05)
[2019-04-13] MEDS: MIDODRINE 5 MG TAB PO SCH ×3 (08:35→16:44)
[2019-04-13] MEDS: CitaloPRAM (CeleXA) 10 MG TABLET PO SCH (08:36)
[2019-04-13] MEDS: HumaLOG INSULIN (NovoLOG) PER UNIT SC SCH ×4 (08:47→20:51)
[2019-04-13] MEDS ORDERED: POTASSIUM CHLORIDE 10 MEQ SR TABLET PO SCH (09:00)
[2019-04-13] MEDS: SODIUM CHLORIDE 0.9% INJ 10 ML SYR IV SCH (09:00)
[2019-04-13] MEDS: POTASSIUM CHLORIDE 10 MEQ SR TABLET PO SCH (11:19)
[2019-04-13 14:00] VITALS: BP 100/70
[2019-04-13 22:00] VITALS: BP 105/64
[2019-04-14] MEDS: KCL 20MEQ in NS 1000ML 1,000 ML IV SCH ×3 (01:25→17:29)
[2019-04-14 05:23] LABS: HEMATOCRIT 34.4 % (36.0-47.0); HEMOGLOBIN 11.6 g/dl (12.0-15.5); MEAN CORPUSCULAR HEMOGLOBIN 32.4 pg (27.0-33.0); MEAN CORPUSCULAR HGB CONC 33.7 g/dl (32.0-36.5); MEAN CORPUSCULAR VOLUME 96.1 fl (80.0-96.0); PLATELET COUNT, AUTOMATED 224 10^3/uL (150-450); RED BLOOD COUNT 3.58 10^6/uL (4.00-5.40); WHITE BLOOD COUNT 22.4 10^3/uL (4.0-10.0)
[2019-04-14 05:44] LABS: BLOOD UREA NITROGEN 7 MG/DL (7-18); CALCIUM LEVEL 7.8 MG/DL (8.8-10.2); CARBON DIOXIDE LEVEL 37 MEQ/L (21-32); CHLORIDE LEVEL 101 MEQ/L (98-107); CREATININE FOR GFR 0.34 MG/DL (0.55-1.30); GLOMERULAR FILTRATION RATE > 60.0 (>45); GLUCOSE, FASTING 69 MG/DL (70-100); SODIUM LEVEL 141 MEQ/L (136-145)
[2019-04-14 06:00] VITALS: BP 100/69
[2019-04-14] MEDS: HumaLOG INSULIN (NovoLOG) PER UNIT SC SCH ×4 (07:30→20:38)
[2019-04-14] MEDS: HEPARIN SOD (PORCINE) 5000 UNITS/ML VIAL SC SCH ×2 (09:06→20:04)
[2019-04-14] MEDS: MAGNESIUM CHLORIDE 64 MG TABCR (SLO MAG) PO SCH ×3 (09:06→20:04)
[2019-04-14] MEDS: MIDODRINE 5 MG TAB PO SCH ×3 (09:06→16:11)
[2019-04-14] MEDS: THIAMINE 100 MG TAB PO SCH (09:06)
[2019-04-14] MEDS: CitaloPRAM (CeleXA) 10 MG TABLET PO SCH (09:06)
[2019-04-14] MEDS: HYDROCORTISONE 10 MG TAB PO SCH ×2 (09:06→16:11)
[2019-04-14] MEDS: ASPIRIN 81 MG ENTERIC TAB PO SCH (09:06)
[2019-04-14] MEDS: DOCUSATE SODIUM 100 MG CAP PO SCH ×2 (09:07→20:04)
[2019-04-14] MEDS: CLOPIDOGREL 75 MG TAB PO SCH (09:07)
[2019-04-14] MEDS: CALCIUM CARBONATE 500 MG CHEW U/D PO SCH ×3 (09:07→20:03)
[2019-04-14] MEDS: ATORVASTATIN 20 MG TAB PO SCH (09:07)
[2019-04-14] MEDS: FOLIC ACID 1 MG TAB PO SCH (09:07)
[2019-04-14] MEDS: FLUDROCORTISONE ACETATE 0.1 MG TAB PO SCH (09:07)
[2019-04-14] MEDS: POTASSIUM CHLORIDE 10 MEQ SR TABLET PO SCH (09:07)
[2019-04-14] MEDS: SODIUM CHLORIDE 0.9% INJ 10 ML SYR IV SCH (09:08)
[2019-04-14] MEDS ORDERED: POTASSIUM CHLORIDE 10 MEQ SR TABLET PO ONE ×2 (12:00→15:30)
[2019-04-14 12:32] LABS: BLOOD UREA NITROGEN 12 MG/DL (7-18); CALCIUM LEVEL 8.1 MG/DL (8.8-10.2); CARBON DIOXIDE LEVEL 34 MEQ/L (21-32); CHLORIDE LEVEL 101 MEQ/L (98-107); CREATININE FOR GFR 0.59 MG/DL (0.55-1.30); GLOMERULAR FILTRATION RATE > 60.0 (>45); GLUCOSE, FASTING 145 MG/DL (70-100); POTASSIUM SERUM 3.4 MEQ/L (3.5-5.1); SODIUM LEVEL 140 MEQ/L (136-145)
[2019-04-14 14:00] VITALS: BP 158/81
--- NOTE | 2019-04-14 15:33 | IPNPDOC ---
Text Note Date of Service The patient was seen on 04/14/19. NOTE Interval events: Spoke with her daughter Bety about 1. Her current lack of involvement and thus failure to prove capacity to the clinical team at this time. 2. The recommendation for placement because it is unsafe to return home to live alone with her degree of illness and high re-admission rates that prove inability to execute care plan. 3. Team's desire to have her be present to facilitate engagement with the patient as a trusted constitution party for a patient being cared for by all new providers she does not have necessary rapport with in the hospital. At the heart of this request is the appropriateness of discussing GOC with the patient who is at this time continuous IV fluids and daily electrolyte replacement dependent. She reports that Ms. Simmons is quite close with her therapeutic case manager Jacqueline Byers ([phone]) of [facility] who she would l ikely engage in GOC discussions with. Concluding our discussion, we decided to have her liaise with Jacqueline a time they would meet here and speak with the patient and then meet with the team subsequently. of note, Bety did mention that she was last seen by her oncologist and had a scan ~2m ago without recurrence. Subjective: -No acute complaints this morning, no active engagement with minimal dialogue Objective: Vitals: see below. Otherwise hemodynamically stable and normotensive over the last 24h General Exam: Alert, thin, ill appearing, pale, disheveled Eye Exam: PERRLA, pale conjunctiva, anicteric ENT Exam: Clear posterior oropharynx, appears dry Neck Exam: Supple, no JVD Chest Exam: Bibasilar crackles, poor effort Heart Exam: RRR, no noted murmurs, rubs or gallops Telemetry: No significant ectopy Abdomen Exam: Normal bowel sounds, soft, NTND, no hepatosplenomegaly Extremity Exam: WWP, no edema, dry with skin tenting Skin Exam: Normal temperature, tenting with dryness Neuro Exam: Strength at 4/5 X4 ext, Cranial Nerves 3-12 WNL Psych Exam: Oriented x 3, flat affect, expressionless with minimal responses Labs: reviewed. Replete K, checking Magnesium. Cr at baseline. Assessment: 63 years old woman with small cell lung carcinoma diagnosed in 08/2016 in her right upper lobe, noncompliant with treatment and lost to follow-up, COPD, adrenal insufficiency, schizophrenia, chronic hypertension, polyarthritis, tobacco abuse, who presented to the hospital with hypotension to 70/40 and dizziness c/b prolonged shock with profound hypotension requiring ICU transfer for pressor support. Her ICU stay was further c/b polyuria and polydipsia w/ c/f nephrogenic versus central diabetes insipidus s/p brain MRI that was negative for pituitary lesion that has moderately improved. At this time, she remains on steroids and hypotension has resolved with endocrinology recommending resumption of her outpatient steroids now that she is through the crisis, however c/b by episodic hypotension and DI requiring IV fluids and intermittent boluses. Plan: Shock: 2/2 adrenal insufficiency with adrenal crisis in the setting of steroid treatment non compliance -Patient has a history of noncompliance to medication. -No obvious source of infection, lungs are clear, afebrile, lactic acid within normal limit. -Her leukocytosis is most likely secondary to steroid treatment. -T4 within normal limit, previous TSH within normal limit. -On 04/07/19 switched IV hydrocortisone to PO hydrocortisone. Blood pressure has remained stable since 04/07/19. On 04/08/19 fludrocortisone was increased to 0.2 -Continue midodrine -I spoke with Dr. George (endocrinology) who suggested returning to 10mg pred daily instead of twice daily hydrocort in a low adherence patient, and fludra back to 0.1 if tolerated. However this plan is being delayed by persistent episodes of hypotension that require fluids such as 04/11 afternoon. Polydipsia and polyuria On 04/07/19 patient developed polydipsia with polyuria, urine osmolality 279, serum was 284. with a concern for central diabetes insipidus. -MRI of the brain did not show any significant pituitary lesion but she does have evidence of possible stenosis or occlusion in her right ICA. -FeNa was 1.28. -Much improved from prior but persistent enough to require maintenance IV fluids, will continue to monitor as she is dry on exam despite fluids and good PO Electrolyte derrangements: -Likely a consequence of her adrenal insufficiency, aggressive repleting K, Mg and Ca -BID lytes Deconditioning: -Secondary to adrenal insufficiency and acute illness -treatment as above, as well as PT/OT evaluation and treatment Small cell lung cancer, right upper lobe: -Follow-up with oncologist in the outpatient settings Diabetes mellitus -Insulin sliding scale -Consistent carb diet Prior history of multiple rib fractures: Pain management when necessary Incentive spirometry Prior CVA: -ASA, plavix DVT prophylaxis: heparin 5000U Q12H Dispo: pending discussion with her daughter, sister and Jacqueline Byers and care management about safe discharge planning given non compliance and frequent readmissions. Also having episodic hypotension and persisting polyuria and polydipsia that would be difficult to manage in a non supervised setting. VS,Fishbone, I+O VS, Fishbone, I+O Laboratory Tests 04/14/19 05:13 04/14/19 11:51 Vital Signs Date Time Temp Pulse Resp B/P (MAP) Pulse Ox O2 Delivery O2 Flow Rate FiO2 04/14/19 06:00 97.9 77 16 100/69 (79) 94 Room Air I&O- Last 24 Hours up to 6 AM 04/14/19 06:00 Intake Total 5492 ml Output Total 1000 ml Balance 4492 ml VIRAJ RYAN MD Apr 14, 2019 15:33
[2019-04-14 15:54] LABS: MAGNESIUM LEVEL 1.7 MG/DL (1.8-2.4)
[2019-04-14 22:00] VITALS: BP 108/68
[2019-04-15] MEDS: KCL 20MEQ in NS 1000ML 1,000 ML IV SCH ×3 (01:35→17:02)
[2019-04-15 05:29] LABS: HEMATOCRIT 36.1 % (36.0-47.0); MEAN CORPUSCULAR HEMOGLOBIN 32.1 pg (27.0-33.0); MEAN CORPUSCULAR HGB CONC 33.2 g/dl (32.0-36.5); MEAN CORPUSCULAR VOLUME 96.5 fl (80.0-96.0); PLATELET COUNT, AUTOMATED 239 10^3/uL (150-450); RED BLOOD COUNT 3.74 10^6/uL (4.00-5.40); WHITE BLOOD COUNT 22.2 10^3/uL (4.0-10.0)
[2019-04-15 05:56] LABS: BLOOD UREA NITROGEN 10 MG/DL (7-18); CALCIUM LEVEL 8.3 MG/DL (8.8-10.2); CARBON DIOXIDE LEVEL 33 MEQ/L (21-32); CHLORIDE LEVEL 104 MEQ/L (98-107); CREATININE FOR GFR 0.36 MG/DL (0.55-1.30); GLOMERULAR FILTRATION RATE > 60.0 (>45); GLUCOSE, FASTING 76 MG/DL (70-100); MAGNESIUM LEVEL 1.9 MG/DL (1.8-2.4); POTASSIUM SERUM 3.4 MEQ/L (3.5-5.1); SODIUM LEVEL 142 MEQ/L (136-145)
[2019-04-15 06:00] VITALS: BP 104/69
[2019-04-15] MEDS: HumaLOG INSULIN (NovoLOG) PER UNIT SC SCH ×4 (07:28→20:23)
[2019-04-15] MEDS: HEPARIN SOD (PORCINE) 5000 UNITS/ML VIAL SC SCH ×2 (07:55→20:50)
[2019-04-15] MEDS: CALCIUM CARBONATE 500 MG CHEW U/D PO SCH ×3 (07:55→20:44)
[2019-04-15] MEDS: CLOPIDOGREL 75 MG TAB PO SCH (07:56)
[2019-04-15] MEDS: MIDODRINE 5 MG TAB PO SCH ×3 (07:56→17:00)
[2019-04-15] MEDS: CitaloPRAM (CeleXA) 10 MG TABLET PO SCH (07:56)
[2019-04-15] MEDS: SODIUM CHLORIDE 0.9% INJ 10 ML SYR IV SCH (07:56)
[2019-04-15] MEDS: ASPIRIN 81 MG ENTERIC TAB PO SCH (07:57)
[2019-04-15] MEDS: THIAMINE 100 MG TAB PO SCH (07:57)
[2019-04-15] MEDS: HYDROCORTISONE 10 MG TAB PO SCH ×2 (07:58→17:00)
[2019-04-15] MEDS: ATORVASTATIN 20 MG TAB PO SCH (07:58)
[2019-04-15] MEDS: POTASSIUM CHLORIDE 10 MEQ SR TABLET PO SCH (07:59)
[2019-04-15] MEDS: FLUDROCORTISONE ACETATE 0.1 MG TAB PO SCH (08:00)
[2019-04-15] MEDS: FOLIC ACID 1 MG TAB PO SCH (08:00)
[2019-04-15] MEDS: DOCUSATE SODIUM 100 MG CAP PO SCH ×2 (08:00→20:50)
[2019-04-15] MEDS: MAGNESIUM CHLORIDE 64 MG TABCR (SLO MAG) PO SCH ×3 (08:01→20:49)
[2019-04-15 11:01] LABS: OSMOLALITY URINE 625 MOSM/KG (500-800)
[2019-04-15 11:19] LABS: SODIUM,RANDOM URINE 174 MEQ/L
[2019-04-15 14:00] VITALS: BP 103/69
--- NOTE | 2019-04-15 17:18 | IPNPDOC ---
Text Note Date of Service The patient was seen on 04/15/19. NOTE Subjective: -No acute complaints this morning -Eating breakfast, sitting up, requesting to use the bathroom Objective: Vitals: see below. HDS General Exam: Alert, thin, ill appearing, pale Eye Exam: PERRLA, pale conjunctiva ENT Exam: MMM Neck Exam: Supple, no JVD Chest Exam: +rhonchi that clear with coughing, no crackles, clear Heart Exam: RRR, no noted murmurs, rubs or gallops Abdomen Exam: Normal bowel sounds, soft, NTND, no hepatosplenomegaly Extremity Exam: WWP, no edema Skin Exam: Normal temperature, tenting with dryness Neuro Exam: Strength at 5/5 X4 ext, Cranial Nerves 3-12 WNL Psych Exam: Oriented x 3, flat affect Labs: reviewed. Replete K, Magnesium. Cr at baseline. Assessment: 63 years old woman with small cell lung carcinoma diagnosed in 08/2016 in her right upper lobe, noncompliant with treatment and lost to follow-up, COPD, adrenal insufficiency, schizophrenia, chronic hypertension, polyarthritis, tobacco abuse, who presented to the hospital with hypotension to 70/40 and dizziness c/b prolonged shock with profound hypotension requiring ICU transfer for pressor support. 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 At this time, she remains on steroids and hypotension has resolved with endocrinology recommending resumption of her outpatient steroids now that she is through the crisis, however c/b by episodic hypotension and DI requiring IV fluids and intermittent boluses. Plan: Shock: 2/2 adrenal insufficiency with adrenal crisis in the setting of steroid treatment non compliance -Patient has a history of noncompliance to medication. -No obvious source of infection, lungs are clear, afebrile, lactic acid within normal limit. -Her leukocytosis is most likely secondary to steroid treatment. -T4 within normal limit, previous TSH within normal limit. -On 04/07/19 switched IV hydrocortisone to PO hydrocortisone. Blood pressure has remained stable since 04/07/19. On 04/08/19 fludrocortisone was increased to 0.2 -Continue midodrine -Spoke with Dr. George (endocrinology) who suggested returning to 10mg pred daily instead of twice daily hydrocort in a low adherence patient, and fludra back to 0.1 if tolerated. However this plan is being delayed by persistent episodes of hypotension that require fluids such as 04/11 afternoon. Polydipsia and polyuria On 04/07/19 patient developed polydipsia with polyuria with a concern for central diabetes insipidus. -MRI of the brain did not show any significant pituitary lesion but she does have evidence of possible stenosis or occlusion in her right ICA. -FeNa was 1.28. -Much improved from prior but persistent enough to require maintenance IV fluids, will continue to monitor as she is dry on exam despite fluids and good PO -serum osm normal, urine osm high at 625, with urine Na high at 174, will discuss with nephrology Electrolyte derrangements: -Likely a consequence of her adrenal insufficiency, aggressive repleting K, Mg and Ca -BID lytes Deconditioning: -Secondary to adrenal insufficiency and acute illness -treatment as above, as well as PT/OT evaluation and treatment Small cell lung cancer, right upper lobe: -Follow-up with oncologist in the outpatient settings Diabetes mellitus -Insulin sliding scale -Consistent carb diet Prior history of multiple rib fractures: Pain management when necessary Incentive spirometry Prior CVA: -ASA, plavix DVT prophylaxis: heparin 5000U Q12H Dispo: Discussed that we have 3 options, 1. Discharge home with the knowledge that she would likely decompensate and would choose to become comfort measures choosing quality of life over physical well being. 2. Discharge to facility with goal of increase supervision to safeguard health and engage in care 3. currently in indecision and continue discussions. VS,Fishbone, I+O VS, Fishbone, I+O Laboratory Tests 04/15/19 05:19 Vital Signs Date Time Temp Pulse Resp B/P (MAP) Pulse Ox O2 Delivery O2 Flow Rate FiO2 04/15/19 14:00 98.4 92 19 103/69 (80) 93 Room Air I&O- Last 24 Hours up to 6 AM 04/15/19 06:00 Intake Total 4936 ml Output Total 1680 ml Balance 3256 ml VIRAJ RYAN MD Apr 15, 2019 17:18
[2019-04-15 22:00] VITALS: BP 105/70
[2019-04-15] MEDS: SODIUM CHLORIDE 0.9% INJ 10 ML SYR IV PRN (23:12)
[2019-04-15 23:50] LABS: BLOOD UREA NITROGEN 17 MG/DL (7-18); CALCIUM LEVEL 7.9 MG/DL (8.8-10.2); CARBON DIOXIDE LEVEL 33 MEQ/L (21-32); CHLORIDE LEVEL 98 MEQ/L (98-107); GLOMERULAR FILTRATION RATE > 60.0 (>45); GLUCOSE, FASTING 195 MG/DL (70-100); MAGNESIUM LEVEL 1.6 MG/DL (1.8-2.4); SODIUM LEVEL 137 MEQ/L (136-145); TROPONIN I 0.02 NG/ML (< 0.10)
[2019-04-16] MEDS ORDERED: POTASSIUM CHLORIDE 10 MEQ SR TABLET PO ONE
[2019-04-16] MEDS: KCL 10MEQ/100ML SWI (KRUN) 10 MEQ in IV 1 EA IV SCH ×4 (00:37→04:47)
[2019-04-16] MEDS: MAG SULF 1GM/100ML (MAG RUN) 1 GM in IV 1 EA IV SCH ×4 (00:56→04:47)
--- NOTE | 2019-04-16 01:22 | REP ---
Clinical: Shortness of breath Comparison: 04/04/2019 . Findings: The mediastinum and cardiac silhouette are stable and within normal limits for portable technique. Wxgybk-K-Axis with tip in the SVC/right atrium. The lung garcia demonstrates chronic appearing changes without acute consolidation, effusion, or pneumothorax. Skeletal structures are intact. Impression: No acute cardiopulmonary process appreciated. Electronically Signed by Reji Dupree MD 04/16/2019 01:12 A
[2019-04-16 05:43] LABS: HEMATOCRIT 35.6 % (36.0-47.0); HEMOGLOBIN 11.7 g/dl (12.0-15.5); MEAN CORPUSCULAR HEMOGLOBIN 32.1 pg (27.0-33.0); MEAN CORPUSCULAR HGB CONC 32.9 g/dl (32.0-36.5); MEAN CORPUSCULAR VOLUME 97.5 fl (80.0-96.0); PLATELET COUNT, AUTOMATED 245 10^3/uL (150-450); RED BLOOD COUNT 3.65 10^6/uL (4.00-5.40); WHITE BLOOD COUNT 24.3 10^3/uL (4.0-10.0)
[2019-04-16 06:00] VITALS: BP 104/65
[2019-04-16] MEDS: SODIUM CHLORIDE 0.9% INJ 10 ML SYR IV PRN (06:03)
[2019-04-16 06:18] LABS: BLOOD UREA NITROGEN 11 MG/DL (7-18); CALCIUM LEVEL 8.1 MG/DL (8.8-10.2); CARBON DIOXIDE LEVEL 35 MEQ/L (21-32); CHLORIDE LEVEL 101 MEQ/L (98-107); CREATININE FOR GFR 0.38 MG/DL (0.55-1.30); GLOMERULAR FILTRATION RATE > 60.0 (>45); GLUCOSE, FASTING 90 MG/DL (70-100); MAGNESIUM LEVEL 3.8 MG/DL (1.8-2.4); POTASSIUM SERUM 3.9 MEQ/L (3.5-5.1); SODIUM LEVEL 140 MEQ/L (136-145)
[2019-04-16] MEDS: HumaLOG INSULIN (NovoLOG) PER UNIT SC SCH ×4 (07:30→20:53)
[2019-04-16] MEDS: HEPARIN SOD (PORCINE) 5000 UNITS/ML VIAL SC SCH ×2 (07:55→20:59)
[2019-04-16] MEDS: HYDROCORTISONE 10 MG TAB PO SCH ×2 (07:55→16:26)
[2019-04-16] MEDS: CALCIUM CARBONATE 500 MG CHEW U/D PO SCH ×4 (07:56→20:58)
[2019-04-16] MEDS: CLOPIDOGREL 75 MG TAB PO SCH (07:56)
[2019-04-16] MEDS: MIDODRINE 5 MG TAB PO SCH ×3 (07:56→16:26)
[2019-04-16] MEDS: FOLIC ACID 1 MG TAB PO SCH (07:56)
[2019-04-16] MEDS: FLUDROCORTISONE ACETATE 0.1 MG TAB PO SCH (07:56)
[2019-04-16] MEDS: DOCUSATE SODIUM 100 MG CAP PO SCH ×2 (07:56→20:59)
[2019-04-16] MEDS: POTASSIUM CHLORIDE 10 MEQ SR TABLET PO SCH (07:56)
[2019-04-16] MEDS: THIAMINE 100 MG TAB PO SCH (07:57)
[2019-04-16] MEDS: ATORVASTATIN 20 MG TAB PO SCH (07:57)
[2019-04-16] MEDS: CitaloPRAM (CeleXA) 10 MG TABLET PO SCH (07:57)
[2019-04-16] MEDS: ASPIRIN 81 MG ENTERIC TAB PO SCH (07:57)
[2019-04-16] MEDS: SODIUM CHLORIDE 0.9% INJ 10 ML SYR IV SCH (07:57)
--- NOTE | 2019-04-16 12:22 | IPNPDOC ---
Text Note Date of Service The patient was seen on 04/16/19. NOTE Subjective: -No acute complaints this morning -Eating breakfast, sitting up -More awake this AM, slightly better groomed, blinds open, report feeling great, thanked me for coming to see her -Fluids have been off since midnight with strict I/Os Objective: Vitals: see below. HDS General Exam: Alert, thin, ill appearing, pale Eye Exam: PERRLA, pale conjunctiva ENT Exam: MMM Neck Exam: Supple, no JVD Chest Exam: CTAB, no crackles, rhonchi or wheezing Heart Exam: RRR, no noted murmurs, rubs or gallops Abdomen Exam: Normal bowel sounds, soft, NTND, no hepatosplenomegaly Extremity Exam: WWP, no edema Skin Exam: Normal temperature, tenting with dryness Neuro Exam: Strength at 5/5 X4 ext, Cranial Nerves 3-12 WNL Psych Exam: Oriented x 3, flat affect Labs: reviewed. normal K, Magnesium high at 3.8, Cr at baseline. Assessment: 63 years old woman with small cell lung carcinoma diagnosed in 08/2016 in her right upper lobe, noncompliant with treatment and lost to follow-up, COPD, adrenal insufficiency, schizophrenia, chronic hypertension, polyarthritis, tobacco abuse, who presented to the hospital with hypotension to 70/40 and dizziness c/b prolonged shock with profound hypotension requiring ICU transfer for pressor support. 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 At this time, she remains on steroids and hypotension has resolved with endocrinology recommending resumption of her outpatient steroids now that she is through the crisis, however c/b by episodic hypotension and DI requiring IV fluids and intermittent boluses, now normotensive and trying off all IV fluids and drinking to thirst. Plan: Shock: 2/2 adrenal insufficiency with adrenal crisis in the setting of steroid treatment non compliance -Patient has a history of noncompliance to medication. -No obvious source of infection, lungs are clear, afebrile, lactic acid within normal limit. -Her leukocytosis is most likely secondary to steroid treatment. -T4 within normal limit, previous TSH within normal limit. -On 04/07/19 switched IV hydrocortisone to PO hydrocortisone. Blood pressure has remained stable since 04/07/19. On 04/08/19 fludrocortisone was increased to 0.2 -Continue midodrine -Spoke with Dr. George (endocrinology) who suggested returning to 10mg pred daily instead of twice daily hydrocort in a low adherence patient, and fludra back to 0.1 if tolerated. However this plan is being delayed by persistent episodes of hypotension that require fluids such as 04/11 afternoon. Polydipsia and polyuria On 04/07/19 patient developed polydipsia with polyuria with a concern for central diabetes insipidus. -MRI of the brain did not show any significant pituitary lesion but she does have evidence of possible stenosis or occlusion in her right ICA. -FeNa was 1.28. -Much improved from prior but persistent enough to require maintenance IV fluids, will continue to monitor as she is dry on exam despite fluids and good PO -serum osm normal, urine osm high at 625, with urine Na high at 174, held all fluids overnight and will monitor I/Os strictly and will measure lytes again in 24h Electrolyte derrangements: -Likely a consequence of her adrenal insufficiency, aggressive repleting K, Mg and Ca -BID lytes Deconditioning: -Secondary to adrenal insufficiency and acute illness -treatment as above, as well as PT/OT evaluation and treatment Small cell lung cancer, right upper lobe: -Follow-up with oncologist in the outpatient settings Diabetes mellitus -Insulin sliding scale -Consistent carb diet Prior history of multiple rib fractures: Pain management when necessary Incentive spirometry Prior CVA: -ASA, plavix DVT prophylaxis: heparin 5000U Q12H Dispo: Over the weekend we discussed that we have 2 options, 1. Discharge home with the knowledge that she would likely decompensate and would choose to become comfort measures choosing quality of life over physical well being. 2. Discharge to facility with goal of increase supervision to safeguard health and engage in care. Currently weaning from fluids and will transition to pred QD from hydroco rtisone Q6 for ease of administration as an outpatient, once she is stable for 24h off the IV fluids. VS,Fishbone, I+O VS, Fishbone, I+O Laboratory Tests 04/15/19 23:08 04/16/19 05:27 Vital Signs Date Time Temp Pulse Resp B/P (MAP) Pulse Ox O2 Delivery O2 Flow Rate FiO2 04/16/19 06:00 97.8 79 18 104/65 (03) 93 Room Air I&O- Last 24 Hours up to 6 AM 04/16/19 06:00 Intake Total 5100 ml Output Total 900 ml Balance 4200 ml VIRAJ RYAN MD Apr 16, 2019 12:22
[2019-04-16 14:00] VITALS: BP 95/63
[2019-04-16 19:30] VITALS: BP 85/60
[2019-04-16] MEDS ORDERED: NS 500 ML IV ONE (20:15)
--- NOTE | 2019-04-16 21:43 | ECGEPIP ---
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
[2019-04-16 21:59] VITALS: BP 80/60
[2019-04-16 22:00] VITALS: BP 85/60
[2019-04-17 01:42] VITALS: BP 115/86
[2019-04-17 05:46] LABS: HEMATOCRIT 36.2 % (36.0-47.0); HEMOGLOBIN 12.2 g/dl (12.0-15.5); MEAN CORPUSCULAR HEMOGLOBIN 31.9 pg (27.0-33.0); MEAN CORPUSCULAR HGB CONC 33.7 g/dl (32.0-36.5); MEAN CORPUSCULAR VOLUME 94.8 fl (80.0-96.0); PLATELET COUNT, AUTOMATED 258 10^3/uL (150-450); RED BLOOD COUNT 3.82 10^6/uL (4.00-5.40); WHITE BLOOD COUNT 26.8 10^3/uL (4.0-10.0)
[2019-04-17 06:00] VITALS: BP 122/77
[2019-04-17 07:03] LABS: BLOOD UREA NITROGEN 11 MG/DL (7-18); CALCIUM LEVEL 8.1 MG/DL (8.8-10.2); CARBON DIOXIDE LEVEL 36 MEQ/L (21-32); CHLORIDE LEVEL 98 MEQ/L (98-107); CREATININE FOR GFR 0.38 MG/DL (0.55-1.30); GLOMERULAR FILTRATION RATE > 60.0 (>45); GLUCOSE, FASTING 73 MG/DL (70-100); MAGNESIUM LEVEL 1.9 MG/DL (1.8-2.4); POTASSIUM SERUM 2.7 MEQ/L (3.5-5.1); SODIUM LEVEL 141 MEQ/L (136-145)
[2019-04-17] MEDS: HumaLOG INSULIN (NovoLOG) PER UNIT SC SCH ×4 (07:30→20:58)
[2019-04-17] MEDS: HEPARIN SOD (PORCINE) 5000 UNITS/ML VIAL SC SCH ×2 (08:08→21:10)
[2019-04-17] MEDS: POTASSIUM CHLORIDE 10 MEQ SR TABLET PO SCH ×2 (08:08→21:10)
[2019-04-17] MEDS: SODIUM CHLORIDE 0.9% INJ 10 ML SYR IV SCH (08:08)
[2019-04-17] MEDS: MIDODRINE 5 MG TAB PO SCH ×3 (08:08→16:19)
[2019-04-17] MEDS: FOLIC ACID 1 MG TAB PO SCH (08:09)
[2019-04-17] MEDS: FLUDROCORTISONE ACETATE 0.1 MG TAB PO SCH (08:09)
[2019-04-17] MEDS: DOCUSATE SODIUM 100 MG CAP PO SCH ×2 (08:09→21:10)
[2019-04-17] MEDS: ATORVASTATIN 20 MG TAB PO SCH (08:09)
[2019-04-17] MEDS: ASPIRIN 81 MG ENTERIC TAB PO SCH (08:09)
[2019-04-17] MEDS: CLOPIDOGREL 75 MG TAB PO SCH (08:09)
[2019-04-17] MEDS: THIAMINE 100 MG TAB PO SCH (08:09)
[2019-04-17] MEDS: CitaloPRAM (CeleXA) 10 MG TABLET PO SCH (08:09)
[2019-04-17] MEDS: HYDROCORTISONE 10 MG TAB PO SCH ×3 (08:09→18:11)
[2019-04-17] MEDS: CALCIUM CARBONATE 500 MG CHEW U/D PO SCH ×3 (08:10→21:00)
[2019-04-17] MEDS ORDERED: POTASSIUM CHLORIDE 10 MEQ SR TABLET PO ONE (11:30)
--- NOTE | 2019-04-17 13:11 | IPNPDOC ---
Text Note Date of Service The patient was seen on 04/17/19. NOTE Subjective: No acute complaints this morning, had her breakfast and could tell me what she ate. She is alert, oriented x 3. Denied any chest pain or SOB, denied any abdominal pain or diarrhea. She was agreeable to do the MMSE. Objective: Vitals: see below. HDS General Exam: Alert, thin, ill appearing, pale Eye Exam: PERRLA, pale conjunctiva ENT Exam: MMM Neck Exam: Supple, no JVD Chest Exam: CTAB, no crackles, rhonchi or wheezing Heart Exam: RRR, no noted murmurs, rubs or gallops Abdomen Exam: Normal bowel sounds, soft, NTND, no hepatosplenomegaly Extremity Exam: WWP, no edema Skin Exam: Normal temperature, tenting with dryness Neuro Exam: Strength at 5/5 X4 ext, Cranial Nerves 3-12 WNL Psych Exam: Oriented x 3, flat affect Labs: reviewed. normal K, Magnesium high at 3.8, Cr at baseline. Assessment: 63 years old woman with small cell lung carcinoma diagnosed in 08/2016 in her right upper lobe, noncompliant with treatment and lost to follow-up, COPD, ad renal insufficiency, schizophrenia, chronic hypertension, polyarthritis, tobacco abuse, who presented to the hospital with hypotension to 70/40 and dizziness c/b prolonged shock with profound hypotension requiring ICU transfer for pressor support. 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 At this time, she remains on steroids and hypotension has resolved with endocrinology recommending resumption of her outpatient steroids now that she is through the crisis, however c/b by episodic hypotension and DI requiring IV fluids and intermittent boluses, now normotensive and trying off all IV fluids and drinking to thirst. Adrenal crisis with shock 2/2 adrenal insufficiency in the setting of steroid treatment non compliance Patient has a history of noncompliance to medication. No obvious source of infection, lungs are clear, afebrile, lactic acid within normal limit. Her leukocytosis is most likely secondary to chronic steroid treatment. T4 within normal limit, previous TSH within normal limit. On 04/07/19 switched IV hydrocortisone to PO hydrocortisone.fludrocortisone was increased to 0.2 Continue midodrine Spoke with Dr. George (endocrinology) who suggested returning to 10mg pred daily instead of twice daily hydrocort in a low adherence patient, and fludra back to 0.1 if tolerated. However this plan is being delayed by persistent episodes of hypotension that require fluids have changed the hydrocortisone to tid schedule Polydipsia and polyuria On 04/07/19 patient developed polydipsia with polyuria with a concern for central diabetes insipidus. Now not polyuric MRI of the brain did not show any significant pituitary lesion but she does have evidence of possible stenosis or occlusion in her right ICA. serum osm normal, urine osm high at 625, with urine Na high at 174, held all fluids overnight and will monitor I/Os strictly will recheck urine osmolality and urine sodium. Electrolyte derrangements: Likely a consequence of her adrenal insufficiency, aggressive repleting K, Mg and Ca Deconditioning: Secondary to adrenal insufficiency and acute illness treatment as above, as well as PT/OT evaluation and treatment Small cell lung cancer, right upper lobe: with right rib fractures t Follow-up with oncologist in the outpatient settings Diabetes mellitus Insulin sliding scale Consistent carb diet Prior history of multiple rib fractures: Pain management when necessary Incentive spirometry H/o Alcohol abuse and medication noncompliance Neuropathy diabetic and alcoholic recurrent falls Protein-calorie malnutrition. Hypokalemia CAD and peripheral arterial disease COPD Schizophrenia Prior CVA: MMSE 26/30 once and /30 second time the difference is he could not do the subtractions from 100 however could spell the WORLD backwards correctly. Says that she has difficulty with numbers. ASA, plavix DVT prophylaxis: heparin 5000U Q12H Dispo: Over the weekend we discussed that we have 2 options, 1. Discharge home with the knowledge that she would likely decompensate and would choose to become comfort measures choosing quality of life over physical well being. 2. Discharge to facility with goal of increase supervision to safeguard health and engage in care. Currently weaning from fluids and will transition to pred QD from hydrocortisone Q6 for ease of administration as an outpatient, once she is stable for 24h off the IV fluids. VS,Fishbone, I+O VS, Fishbone, I+O Laboratory Tests 04/17/19 05:30 Vital Signs Date Time Temp Pulse Resp B/P (MAP) Pulse Ox O2 Delivery O2 Flow Rate FiO2 04/17/19 06:00 96.8 82 19 122/77 92 94 Room Air I&O- Last 24 Hours up to 6 AM 04/17/19 05:59 Intake Total 2560 ml Output Total 2700 ml Balance -140 ml JESUS MUNGUIA MD Apr 17, 2019 13:11
[2019-04-17 14:00] VITALS: BP 74/54
[2019-04-17] MEDS ORDERED: MIDODRINE 5 MG TAB PO ONE (15:00)
[2019-04-17 15:30] VITALS: BP 78/55
[2019-04-17] MEDS ORDERED: SLF 3 ML SYR IV PRN (17:15)
[2019-04-17 17:30] VITALS: BP 102/60
[2019-04-17 22:00] VITALS: BP 109/64
[2019-04-18 04:41] LABS: OSMOLALITY URINE 518 MOSM/KG (500-800); SODIUM,RANDOM URINE 171 MEQ/L
[2019-04-18] MEDS: SODIUM CHLORIDE 0.9% INJ 10 ML SYR IV PRN (05:45)
[2019-04-18 06:00] VITALS: BP 99/61
[2019-04-18 06:07] LABS: HEMATOCRIT 37.1 % (36.0-47.0); HEMOGLOBIN 12.3 g/dl (12.0-15.5); MEAN CORPUSCULAR HEMOGLOBIN 32.1 pg (27.0-33.0); MEAN CORPUSCULAR HGB CONC 33.2 g/dl (32.0-36.5); MEAN CORPUSCULAR VOLUME 96.9 fl (80.0-96.0); PLATELET COUNT, AUTOMATED 239 10^3/uL (150-450); RED BLOOD COUNT 3.83 10^6/uL (4.00-5.40); WHITE BLOOD COUNT 22.7 10^3/uL (4.0-10.0)
[2019-04-18 07:08] LABS: BLOOD UREA NITROGEN 15 MG/DL (7-18); CALCIUM LEVEL 8.7 MG/DL (8.8-10.2); CARBON DIOXIDE LEVEL 36 MEQ/L (21-32); CHLORIDE LEVEL 100 MEQ/L (98-107); CREATININE FOR GFR 0.41 MG/DL (0.55-1.30); GLOMERULAR FILTRATION RATE > 60.0 (>45); GLUCOSE, FASTING 70 MG/DL (70-100); POTASSIUM SERUM 3.4 MEQ/L (3.5-5.1); SODIUM LEVEL 139 MEQ/L (136-145)
[2019-04-18] MEDS: HumaLOG INSULIN (NovoLOG) PER UNIT SC SCH ×4 (07:30→21:00)
[2019-04-18] MEDS: HEPARIN SOD (PORCINE) 5000 UNITS/ML VIAL SC SCH ×2 (08:25→21:12)
[2019-04-18] MEDS: ATORVASTATIN 20 MG TAB PO SCH (08:27)
[2019-04-18] MEDS: POTASSIUM CHLORIDE 10 MEQ SR TABLET PO SCH ×2 (08:27→21:13)
[2019-04-18] MEDS: FLUDROCORTISONE ACETATE 0.1 MG TAB PO SCH (08:27)
[2019-04-18] MEDS: HYDROCORTISONE 10 MG TAB PO SCH ×3 (08:27→17:15)
[2019-04-18] MEDS: MIDODRINE 5 MG TAB PO SCH ×3 (08:28→16:11)
[2019-04-18] MEDS: FOLIC ACID 1 MG TAB PO SCH (08:28)
[2019-04-18] MEDS: DOCUSATE SODIUM 100 MG CAP PO SCH ×2 (08:28→21:13)
[2019-04-18] MEDS: ASPIRIN 81 MG ENTERIC TAB PO SCH (08:28)
[2019-04-18] MEDS: CLOPIDOGREL 75 MG TAB PO SCH (08:28)
[2019-04-18] MEDS: CitaloPRAM (CeleXA) 10 MG TABLET PO SCH (08:28)
[2019-04-18] MEDS: THIAMINE 100 MG TAB PO SCH (08:28)
[2019-04-18] MEDS: CALCIUM CARBONATE 500 MG CHEW U/D PO SCH ×4 (08:28→21:12)
[2019-04-18] MEDS: SODIUM CHLORIDE 0.9% INJ 10 ML SYR IV SCH (08:29)
[2019-04-18 13:52] VITALS: BP 88/62
[2019-04-18 14:00] VITALS: BP 88/62
[2019-04-18 16:00] VITALS: BP 98/64
[2019-04-18 22:00] VITALS: BP 92/60
[2019-04-19] MEDS: SODIUM CHLORIDE 0.9% INJ 10 ML SYR IV PRN (05:22)
[2019-04-19 05:44] LABS: HEMATOCRIT 35.9 % (36.0-47.0); HEMOGLOBIN 11.8 g/dl (12.0-15.5); MEAN CORPUSCULAR HEMOGLOBIN 32.2 pg (27.0-33.0); MEAN CORPUSCULAR HGB CONC 32.9 g/dl (32.0-36.5); MEAN CORPUSCULAR VOLUME 98.1 fl (80.0-96.0); PLATELET COUNT, AUTOMATED 229 10^3/uL (150-450); RED BLOOD COUNT 3.66 10^6/uL (4.00-5.40); WHITE BLOOD COUNT 18.4 10^3/uL (4.0-10.0)
[2019-04-19 06:00] VITALS: BP 104/63
[2019-04-19 06:27] LABS: BLOOD UREA NITROGEN 20 MG/DL (7-18); CALCIUM LEVEL 8.5 MG/DL (8.8-10.2); CARBON DIOXIDE LEVEL 33 MEQ/L (21-32); CHLORIDE LEVEL 103 MEQ/L (98-107); CREATININE FOR GFR 0.44 MG/DL (0.55-1.30); GLOMERULAR FILTRATION RATE > 60.0 (>45); GLUCOSE, FASTING 63 MG/DL (70-100); MAGNESIUM LEVEL 2.1 MG/DL (1.8-2.4); POTASSIUM SERUM 3.6 MEQ/L (3.5-5.1); SODIUM LEVEL 140 MEQ/L (136-145)
[2019-04-19] MEDS: HumaLOG INSULIN (NovoLOG) PER UNIT SC SCH ×2 (07:30→13:05)
[2019-04-19] MEDS: HYDROCORTISONE 10 MG TAB PO SCH ×3 (08:37→17:06)
[2019-04-19] MEDS: FLUDROCORTISONE ACETATE 0.1 MG TAB PO SCH (08:37)
[2019-04-19] MEDS: POTASSIUM CHLORIDE 10 MEQ SR TABLET PO SCH ×2 (08:39→20:09)
[2019-04-19] MEDS: CitaloPRAM (CeleXA) 10 MG TABLET PO SCH (08:39)
[2019-04-19] MEDS: CLOPIDOGREL 75 MG TAB PO SCH (08:39)
[2019-04-19] MEDS: ASPIRIN 81 MG ENTERIC TAB PO SCH (08:39)
[2019-04-19] MEDS: FOLIC ACID 1 MG TAB PO SCH (08:39)
[2019-04-19] MEDS: ATORVASTATIN 20 MG TAB PO SCH (08:39)
[2019-04-19] MEDS: THIAMINE 100 MG TAB PO SCH (08:39)
[2019-04-19] MEDS: MIDODRINE 5 MG TAB PO SCH ×3 (08:39→17:06)
[2019-04-19] MEDS: DOCUSATE SODIUM 100 MG CAP PO SCH ×2 (08:39→20:08)
[2019-04-19] MEDS: HEPARIN SOD (PORCINE) 5000 UNITS/ML VIAL SC SCH ×2 (08:40→20:08)
[2019-04-19] MEDS: SODIUM CHLORIDE 0.9% INJ 10 ML SYR IV SCH (08:40)
[2019-04-19] MEDS: CALCIUM CARBONATE 500 MG CHEW U/D PO SCH ×3 (08:41→20:09)
[2019-04-19 14:00] VITALS: BP 78/60
[2019-04-19 14:03] VITALS: BP 66/48
--- NOTE | 2019-04-19 15:49 | IPNPDOC ---
Text Note Date of Service The patient was seen on 04/18/19. NOTE Subjective: No acute complaints this morning. Wants to go home. She has been cleared by mobility salgado. however she has very poor short term memory . Does not remember to take her meds or to eat. Her daughter unable to care for her closely visits once in a while. She has been resistant to Assisted living or NH placement. Have asked psych to evaluate her for decisional capacity. Objective: Vitals: see below. HDS General Exam: Alert, thin, ill appearing, pale Eye Exam: PERRLA, pale conjunctiva ENT Exam: MMM Neck Exam: Supple, no JVD Chest Exam: CTAB, no crackles, rhonchi or wheezing Heart Exam: RRR, no noted murmurs, rubs or gallops Abdomen Exam: Normal bowel sounds, soft, NTND, no hepatosplenomegaly Extremity Exam: WWP, no edema Skin Exam: Normal temperature, tenting with dryness Neuro Exam: Strength at 5/5 X4 ext, Cranial Nerves 3-12 WNL Psych Exam: Oriented x 3, flat affect Labs: reviewed. normal K, Magnesium high at 3.8, Cr at baseline. Assessment: 63 years old woman with small cell lung carcinoma diagnosed in 08/2016 in her right upper lobe, noncompliant with treatment and lost to follow-up, COPD, adrenal insufficiency, schizophrenia, chronic hypertension, polyarthritis, tobacco abuse, who presented to the hospital with hypotension to 70/40 and dizziness c/b prolonged shock with profound hypotension requiring ICU transfer for pressor support. 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 At this time, she remains on steroids and hypotension has resolved with endocrinology recommending resumption of her outpatient steroids now that she is through the crisis, however c/b by episodic hypotension and DI requiring IV fluids and intermittent boluses, now normotensive and trying off all IV fluids and drinking to thirst. Adrenal crisis with shock 2/2 adrenal insufficiency in the setting of steroid treatment non compliance Patient has a history of noncompliance to medication. No obvious source of infection, lungs are clear, afebrile, lactic acid within normal limit. Her leukocytosis is most likely secondary to chronic steroid treatment. T4 within normal limit, previous TSH within normal limit. On 04/07/19 switched IV hydrocortisone to PO hydrocortisone.fludrocortisone was increased to 0.2 Continue midodrine Spoke with Dr. George (endocrinology) who suggested returning to 10mg pred daily instead of twice daily hydrocort in a low adherence patient, and fludra back to 0.1 if tolerated. However this plan is being delayed by persistent episodes of hypotension that require fluids have changed the hydrocortisone to tid schedule Polydipsia and polyuria On 04/07/19 patient developed polydipsia with polyuria with a concern for central diabetes insipidus. Now not polyuric MRI of the brain did not show any significant pituitary lesion but she does have evidence of possible stenosis or occlusion in her right ICA. serum osm normal, urine osm high at 625, with urine Na high at 174, held all fluids overnight and will monitor I/Os strictly Electrolyte derrangements: resolved. Deconditioning: Secondary to adrenal insufficiency and acute illness treatment as above, as well as PT/OT evaluation and treatment Small cell lung cancer, right upper lobe: with right rib fractures t Follow-up with oncologist in the outpatient settings Diabetes mellitus Insulin sliding scale Consistent carb diet Prior history of multiple rib fractures: Pain management when necessary Incentive spirometry H/o Alcohol abuse and medication noncompliance Neuropathy diabetic and alcoholic recurrent falls Protein-calorie malnutrition. Hypokalemia CAD and peripheral arterial disease COPD Schizophrenia Prior CVA: MMSE 26/30 once and 21/30 second time the difference is he could not do the subtractions from 100 however could spell the [place]LD backwards correctly. Says that she has difficulty with numbers. ASA, plavix DVT prophylaxis: heparin 5000U Q12H Dispo: Over the weekend we discussed that we have 2 options, 1. Discharge home with the knowledge that she would likely decompensate and would choose to become comfort measures choosing quality of life over physical well being. 2. Discharge to facility with goal of increase supervision to safeguard health and engage in care. Currently weaning from fluids and will transition to pred QD from hydrocortisone Q6 for ease of administration as an outpatient, once she is stable for 24h off the IV fluids. VS,Fishbone, I+O VS, Fishbone, I+O Laboratory Tests 04/18/19 05:51 Vital Signs Date Time Temp Pulse Resp B/P (MAP) Pulse Ox O2 Delivery O2 Flow Rate FiO2 04/18/19 06:00 97.0 69 15 99/61 (11) 91 Room Air I&O- Last 24 Hours up to 6 AM 04/18/19 06:00 Intake Total 2100 ml Output Total 900 ml Balance 1200 ml JESUS MUNGUIA MD Apr 18, 2019 13:25
--- NOTE | 2019-04-19 16:14 | IPNPDOC ---
Text Note Date of Service The patient was seen on 04/19/19. NOTE Subjective: No acute complaints this morning. Wants to go home. She has been cleared by PT mobility salgado. however she has very poor short term memory . Does not remember to take her meds or to eat. Her daughter unable to care for her closely visits once in a while. She has been resistant to Assisted living or NH placement.psych has evaluated the pateint and feel she understands her medical conditions. Objective: Vitals: see below. HDS General Exam: Alert, thin, ill appearing, pale Eye Exam: PERRLA, pale conjunctiva ENT Exam: MMM Neck Exam: Supple, no JVD Chest Exam: CTAB, no crackles, rhonchi or wheezing Heart Exam: RRR, no noted murmurs, rubs or gallops Abdomen Exam: Normal bowel sounds, soft, NTND, no hepatosplenomegaly Extremity Exam: WWP, no edema Skin Exam: Normal temperature, tenting with dryness Neuro Exam: Strength at 5/5 X4 ext, Cranial Nerves 3-12 WNL Psych Exam: Oriented x 3, flat affect Labs: reviewed. normal K, Magnesium high at 3.8, Cr at baseline. Assessment: 63 years old woman with small cell lung carcinoma diagnosed in 08/2016 in her right upper lobe, noncompliant with treatment and lost to follow-up, COPD, adrenal insufficiency, schizophrenia, chronic hypertension, polyarthritis, tobacco abuse, who presented to the hospital with hypotension to 70/40 and dizziness c/b prolonged shock with profound hypotension requiring ICU transfer for pressor support. 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 At this time, she remains on steroids and hypotension has resolved with endocrinology recommending resumption of her outpatient steroids now that she is through the crisis, however c/b by episodic hypotension she has been put on hydrocortisone tid. Chronic hypotension I suspect she has autonomic neuropathy from diabetes and alcohol abuse and has chronic hypotension with episodes of orthostatic hypotension. will check orthostatic vitals. Will continue midodrine and fludrocortisone. Mild dementia she scored 22/30 in MMSE very poor short term memory As per visiting nurses when they go to check on her she does not know any of her medications , could not tell when she last took any medications. and just opens one bottle and started taking pills one after the other and they had to snatch away the bottle from her hand patient is resistent to placement. Adrenal crisis due to non compliance. resolved. continue hydrocortisone Dr. George (endocrinology) suggested returning to 10mg pred daily instead of twice daily hydrocort in a low adherence patient, and fludro back to 0.1 if tolerated. However this plan is being delayed by persistent episodes of hypotension have changed the hydrocortisone to tid schedule Have not yet been able to change hydrocortisone to prednisone. Leucocytosis improving No obvious source of infection, lungs are clear, afebrile, lactic acid within normal limit. Her leukocytosis is most likely secondary to chronic steroid treatment. Polydipsia and polyuria On 04/07/19 patient developed polydipsia with polyuria with a concern for central diabetes insipidus. Now not polyuric MRI of the brain did not show any significant pituitary lesion but she does have evidence of possible stenosis or occlusion in her right ICA. serum osm normal, urine osm high at 625, with urine Na high at 174, held all fluids overnight and will monitor I/Os strictly Electrolyte derrangements: resolved. Deconditioning: Secondary to adrenal insufficiency and acute illness treatment as above, as well as PT/OT evaluation and treatment Small cell lung cancer, right upper lobe: with right rib fractures t Follow-up with oncologist in the outpatient settings Diabetes mellitus becomes hypoglycemic in david AM. restart metformin and stop insulin. Prior history of multiple rib fractures: Pain management when necessary Incentive spirometry H/o Alcohol abuse and medication noncompliance Neuropathy diabetic and alcoholic recurrent falls Protein-calorie malnutrition. Hypokalemia CAD and peripheral arterial disease on asa and plavix. COPD Schizophrenia continue current meds Prior CVA: MMSE 26/30 once and 21/30 second time the difference is he could not do the subtractions from 100 however could spell the WORLD backwards correctly. Says that she has difficulty with numbers. ASA, plavix DVT prophylaxis: heparin 5000U Q12H VS,Fishbone, I+O VS, Fishbone, I+O Laboratory Tests 04/19/19 05:29 Vital Signs Date Time Temp Pulse Resp B/P (MAP) Pulse Ox O2 Delivery O2 Flow Rate FiO2 04/19/19 14:03 97 66/48 (54) 04/19/19 14:00 98.6 22 94 Room Air I&O- Last 24 Hours up to 6 AM 04/19/19 06:00 Intake Total 1390 ml Output Total 175 ml Balance 1215 ml JESUS MUNGUIA MD Apr 19, 2019 16:14
[2019-04-19] MEDS: metFORMIN XR 500MG TAB *GLUCOPHAGE XR PO SCH (17:06)
[2019-04-19 20:00] VITALS: BP_SYST 60; BP_SYST 78; BP_SYST 80; BP_DIAS 58; BP_DIAS 60; BP_DIAS 68
[2019-04-19 22:00] VITALS: BP 78/60
[2019-04-20 06:00] VITALS: BP 108/70
[2019-04-20] MEDS ORDERED: HYDROCORTISONE 10 MG TAB PO SCH ×2 (07:00→18:00)
[2019-04-20] MEDS: CALCIUM CARBONATE 500 MG CHEW U/D PO SCH ×3 (09:00→21:00)
[2019-04-20] MEDS: ASPIRIN 81 MG ENTERIC TAB PO SCH (09:09)
[2019-04-20] MEDS: ATORVASTATIN 20 MG TAB PO SCH (09:09)
[2019-04-20] MEDS: MIDODRINE 5 MG TAB PO SCH ×3 (09:09→17:43)
[2019-04-20] MEDS: SODIUM CHLORIDE 0.9% INJ 10 ML SYR IV SCH (09:09)
[2019-04-20] MEDS: FLUDROCORTISONE ACETATE 0.1 MG TAB PO SCH (09:09)
[2019-04-20] MEDS: POTASSIUM CHLORIDE 10 MEQ SR TABLET PO SCH ×2 (09:10→21:51)
[2019-04-20] MEDS: THIAMINE 100 MG TAB PO SCH (09:10)
[2019-04-20] MEDS: DOCUSATE SODIUM 100 MG CAP PO SCH ×2 (09:10→21:00)
[2019-04-20] MEDS: CitaloPRAM (CeleXA) 10 MG TABLET PO SCH (09:10)
[2019-04-20] MEDS: CLOPIDOGREL 75 MG TAB PO SCH (09:10)
[2019-04-20] MEDS: HEPARIN SOD (PORCINE) 5000 UNITS/ML VIAL SC SCH ×2 (09:11→21:50)
[2019-04-20] MEDS: FOLIC ACID 1 MG TAB PO SCH (09:11)
[2019-04-20] MEDS: HYDROCORTISONE 10 MG TAB PO SCH (13:59)
--- NOTE | 2019-04-20 14:25 | IPNPDOC ---
Text Note Date of Service The patient was seen on 04/20/19. NOTE Subjective: No acute complaints this morning. Wants to go home. She has been cleared by PT mobility salgado. however she has very poor short term memory . Does not remember to take her meds or to eat. Her daughter unable to care for her closely visits once in a while. She has been resistant to Assisted living or NH placement.psych has evaluated the pateint and feel she understands her medical conditions. Objective: Vitals: see below. HDS General Exam: Alert, thin, ill appearing, pale Eye Exam: PERRLA, pale conjunctiva ENT Exam: MMM Neck Exam: Supple, no JVD Chest Exam: CTAB, no crackles, rhonchi or wheezing Heart Exam: RRR, no noted murmurs, rubs or gallops Abdomen Exam: Normal bowel sounds, soft, NTND, no hepatosplenomegaly Extremity Exam: WWP, no edema Skin Exam: Normal temperature, tenting with dryness Neuro Exam: Strength at 5/5 X4 ext, Cranial Nerves 3-12 WNL Psych Exam: Oriented x 3, flat affect Labs: reviewed. normal K, Magnesium high at 3.8, Cr at baseline. Assessment: 63 years old woman with small cell lung carcinoma diagnosed in 08/2016 in her right upper lobe, noncompliant with treatment and lost to follow-up, COPD, adren al insufficiency, schizophrenia, chronic hypertension, polyarthritis, tobacco abuse, who presented to the hospital with hypotension to 70/40 and dizziness c/b prolonged shock with profound hypotension requiring ICU transfer for pressor support. 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 At this time, she remains on steroids and hypotension has resolved with endocrinology recommending resumption of her outpatient steroids now that she is through the crisis, however c/b by episodic hypotension she has been put on hydrocortisone tid. Chronic hypotension I suspect she has autonomic neuropathy from diabetes and alcohol abuse and has chronic hypotension with episodes of orthostatic hypotension on the back grounfd of chronic adrenal insufficiency. i am not sure where it was diagnosed. Even with severe hypotension the patient is not tachycardic, making good urine, no features of cerebral hypoperfusion. orthostatic vitals as positive with patient complaining of dizziness. Will continue midodrine and fludrocortisone. Mild dementia she scored 22/30 in MMSE very poor short term memory As per visiting nurses when they go to check on her she does not know any of her medications , could not tell when she last took any medications. and just opens one bottle and started taking pills one after the other and they had to snatch away the bottle from her hand patient is resistant to placement. Adrenal crisis due to non compliance. resolved. continue hydrocortisone. will start weaning and try to change her back to prednisone. Dr. George (endocrinology) suggested returning to 10mg pred daily instead of twice daily hydrocort in a low adherence patient, and fludro back to 0.1 if tolerated. However this plan is being delayed by persistent episodes of hypotension have changed the hydrocortisone to tid schedule Have not yet been able to change hydrocortisone to prednisone. Leucocytosis improving No obvious source of infection, lungs are clear, afebrile, lactic acid within normal limit. Her leukocytosis is most likely secondary to chronic steroid treatment. Polydipsia and polyuria On 04/07/19 patient developed polydipsia with polyuria with a concern for velasquez tral diabetes insipidus. Now not polyuric MRI of the brain did not show any significant pituitary lesion but she does have evidence of possible stenosis or occlusion in her right ICA. serum osm normal, urine osm high at 625, with urine Na high at 174, held all fluids overnight and will monitor I/Os strictly Electrolyte derangements: resolved. Deconditioning: Secondary to adrenal insufficiency and acute illness treatment as above, as well as PT/OT evaluation and treatment Small cell lung cancer, right upper lobe: with right rib fractures t Follow-up with oncologist in the outpatient settings Diabetes mellitus becomes hypoglycemic in david AM. restart metformin and stop insulin. Prior history of multiple rib fractures: Pain management when necessary Incentive spirometry H/o Alcohol abuse and medication noncompliance Neuropathy diabetic and alcoholic recurrent falls Protein-calorie malnutrition. Hypokalemia CAD and peripheral arterial disease on asa and plavix. COPD Schizophrenia continue current meds Prior CVA: MMSE 26/30 once and 21/30 second time the difference is he could not do the subtractions from 100 however could spell the WORLD backwards correctly. Says that she has difficulty with numbers. ASA, plavix DVT prophylaxis: heparin 5000U Q12H VS,Fishbone, I+O VS, Fishbone, I+O Vital Signs Date Time Temp Pulse Resp B/P (MAP) Pulse Ox O2 Delivery O2 Flow Rate FiO2 04/20/19 06:00 97.5 84 17 108/70 (83) 95 Room Air l I&O- Last 24 Hours up to 6 AM 04/20/19 06:00 Intake Total 890 ml Output Total 900 ml Balance -10 ml JESUS MUNGUIA MD Apr 20, 2019 14:25
--- NOTE | 2019-04-20 15:37 | MHCR ---
DATE OF CONSULTATION: 04/18/2019 HISTORY OF PRESENT ILLNESS: This is a 63-year-old white woman with a history of lung cancer and with multiple recent readmissions for adrenal insufficiency and noncompliance with her steroid treatment at home. I was asked to see this patient to see if the patient is safe to return home. Apparently, the concern is that she has had several recent admissions for adrenal insufficiency. She goes home and she does not take her prednisone. She goes into shock. The patient is felt to do better if she was to go to a longterm but she refuses. Also, it seems that this patient has a significant history of ongoing alcohol abuse. At least it seems that on 11/02/2018 she went to the emergency room with alcohol intoxication. PAST PSYCHIATRIC HISTORY: This patient does have a history of prior hospitalization to [facility] inpatient mental health unit in March 2016. She was given a diagnosis of major depression with psychotic features at that point. She had been admitted, according to the admission note, with some paranoid thoughts that people were after her. It was noted that the patient was found to have a mass in her lung. The patient was not cooperative with that and she was refusing all treatment and so at that point I was the one that was treating her and I was going to go to court for treatment over objection. We actually obtained the treatment over objection and then she agreed to start taking medication. I believe that we treated her with Risperdal and the patient finally stabilized and was ready for discharge. The patient did admit that she had been having some depression that her boyfriend had recently and so that is when we decided that she was having major depression with psychotic symptoms. It seems that before discharge, the patient decided that she would comply with getting further evaluation and treatment of her lung cancer. She had another psychiatric admission from 02/19/2018 to 02/27/2018 and again she was admitted with what appeared to be psychotic symptoms. She had stopped taking her psychotropic medication. She was diagnosed with major depression with psychotic symptoms. This time she was treated with Abilify 2 mg and she actually stabilized again. When I saw the patient today, at first she was very quiet. She had been sleeping but she awoke easily, but she then became alert. She indicated that she knows that if she goes home that she has to take her medication. She was able to tell me that if she does not take her steroid medications that she is going to get sick and end up in the hospital again and she is also able to tell me that she would be at risk of even . She feels that she still wants to go home. She does not want to go a longterm. SUBSTANCE ABUSE: She abuse alcohol. MEDICAL HISTORY: Adrenal insufficiency, Small cell lung cancer in the right upper lobe and Diabetes mellitus. MENTAL STATUS EXAMINATION: She is alert and oriented times three. Eye contact is fair. Psychomotor activity is normal. She responds in short sentences and she does take a while to answer at first, but then there are times that she will just speak spontaneously. There is no formal thought disorder noted. She says that her mood is okay. Affect is flat. She denies suicidal or homicidal ideations. She is not psychotic. I did do a mini mental status examination and actually the patient did fairly well, she obtained a score of about 25/30, mostly having difficulties with contraction, but she could spell "world" backwards instead. Insight and judgment are fairly good. DIAGNOSES: 1. History of major depressive disorder with psychotic symptoms. 2. Small cell lung cancer in the right upper lobe. 3. Diabetes mellitus. 4. History of alcohol abuse. 5. History of noncompliance with treatment. RECOMMENDATIONS: At this point, I do feel the patient understands the consequences of not complying with her treatment. She is able to tell me that she knows that she will be back in the hospital or that she might if she does not comply with her steroid treatment. She tells me that she is going to comply. She is not interested in going to live at a longterm. Please reconsult if further problems arise. SHALA
[2019-04-20 16:00] VITALS: BP 98/73
[2019-04-20] MEDS: metFORMIN XR 500MG TAB *GLUCOPHAGE XR PO SCH (17:43)
[2019-04-20 17:49] VITALS: BP_SYST 100; BP_SYST 84; BP_SYST 94; BP_DIAS 52; BP_DIAS 58; BP_DIAS 60
[2019-04-20 22:00] VITALS: BP 102/66
[2019-04-21 06:00] VITALS: BP 95/64
[2019-04-21] MEDS: SODIUM CHLORIDE 0.9% INJ 10 ML SYR IV PRN (06:00)
[2019-04-21 06:46] LABS: HEMATOCRIT 37.4 % (36.0-47.0); MEAN CORPUSCULAR HEMOGLOBIN 32.3 pg (27.0-33.0); MEAN CORPUSCULAR HGB CONC 32.1 g/dl (32.0-36.5); MEAN CORPUSCULAR VOLUME 100.5 fl (80.0-96.0); PLATELET COUNT, AUTOMATED 235 10^3/uL (150-450); RED BLOOD COUNT 3.72 10^6/uL (4.00-5.40); WHITE BLOOD COUNT 17.4 10^3/uL (4.0-10.0)
[2019-04-21] MEDS: HYDROCORTISONE 10 MG TAB PO SCH ×2 (06:48→15:55)
[2019-04-21 07:00] VITALS: BP_SYST 104; BP_SYST 110; BP_SYST 90; BP_DIAS 58; BP_DIAS 60; BP_DIAS 70
[2019-04-21 07:16] LABS: BLOOD UREA NITROGEN 18 MG/DL (7-18); CALCIUM LEVEL 8.1 MG/DL (8.8-10.2); CARBON DIOXIDE LEVEL 32 MEQ/L (21-32); CHLORIDE LEVEL 102 MEQ/L (98-107); CREATININE FOR GFR 0.46 MG/DL (0.55-1.30); GLOMERULAR FILTRATION RATE > 60.0 (>45); GLUCOSE, FASTING 79 MG/DL (70-100); POTASSIUM SERUM 3.9 MEQ/L (3.5-5.1); SODIUM LEVEL 139 MEQ/L (136-145)
[2019-04-21 07:25] LABS: ANISOCYTOSIS 1+; ATYPICAL LYMPH 4 % (0-5); LYMPHOCYTES 29 % (16-44); MONOCYTES 8 % (0-5); NEUTROPHILS 58 % (28-66); PLATELET ESTIMATE NORMAL (NORMAL)
[2019-04-21] MEDS: DOCUSATE SODIUM 100 MG CAP PO SCH (09:00)
[2019-04-21] MEDS: HEPARIN SOD (PORCINE) 5000 UNITS/ML VIAL SC SCH ×2 (09:18→21:52)
[2019-04-21] MEDS: THIAMINE 100 MG TAB PO SCH (09:19)
[2019-04-21] MEDS: MIDODRINE 5 MG TAB PO SCH ×3 (09:19→15:56)
[2019-04-21] MEDS: CALCIUM CARBONATE 500 MG CHEW U/D PO SCH ×3 (09:20→21:00)
[2019-04-21] MEDS: ASPIRIN 81 MG ENTERIC TAB PO SCH (09:20)
[2019-04-21] MEDS: POTASSIUM CHLORIDE 10 MEQ SR TABLET PO SCH ×2 (09:20→21:52)
[2019-04-21] MEDS: CLOPIDOGREL 75 MG TAB PO SCH (09:20)
[2019-04-21] MEDS: ATORVASTATIN 20 MG TAB PO SCH (09:20)
[2019-04-21] MEDS: FOLIC ACID 1 MG TAB PO SCH (09:20)
[2019-04-21] MEDS: CitaloPRAM (CeleXA) 10 MG TABLET PO SCH (09:20)
[2019-04-21] MEDS: SODIUM CHLORIDE 0.9% INJ 10 ML SYR IV SCH (09:21)
[2019-04-21] MEDS: FLUDROCORTISONE ACETATE 0.1 MG TAB PO SCH (09:23)
--- NOTE | 2019-04-21 10:34 | IPNPDOC ---
Text Note Date of Service The patient was seen on 04/21/19. NOTE Subjective: No acute complaints this morning. Wants to go home. She has been cleared by PT mobility salgado. however she has very poor short term memory . Does not remember to take her meds or to eat. Her daughter unable to care for her closely visits once in a while. She has been resistant to Assisted living or NH placement.psych has evaluated the pateint and feel she understands her medical conditions. Objective: Vitals: see below. HDS General Exam: Alert, thin, ill appearing, pale Eye Exam: PERRLA, pale conjunctiva ENT Exam: MMM Neck Exam: Supple, no JVD Chest Exam: CTAB, no crackles, rhonchi or wheezing Heart Exam: RRR, no noted murmurs, rubs or gallops Abdomen Exam: Normal bowel sounds, soft, NTND, no hepatosplenomegaly Extremity Exam: WWP, no edema Skin Exam: Normal temperature, tenting with dryness Neuro Exam: Strength at 5/5 X4 ext, Cranial Nerves 3-12 WNL Psych Exam: Oriented x 3, flat affect Labs: reviewed. normal K, Magnesium high at 3.8, Cr at baseline. Assessment: 63 years old woman with small cell lung carcinoma diagnosed in 08/2016 in her right upper lobe, noncompliant with treatment and lost to follow-up, COPD, adrenal insufficiency, schizophrenia, chronic hypertension, polyarthritis, tobacco abuse, who presented to the hospital with hypotension to 70/40 and dizziness c/b prolonged shock with profound hypotension requiring ICU transfer for pressor support. 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 At this time, she remains on steroids and hypotension has resolved with endocrinology recommending resumption of her outpatient steroids now that she is through the crisis, however c/b by episodic hypotension she has been put on hydrocortisone tid. Chronic hypotension I suspect she has autonomic neuropathy from diabetes and alcohol abuse and has chronic hypotension with episodes of orthostatic hypotension on the back ground of chronic adrenal insufficiency. i am not sure where it was diagnosed. Even with severe hypotension the patient is not tachycardic, making good urine, no features of cerebral hypoperfusion. orthostatic vitals are positive with patient symptomatic only some times. Will continue midodrine and fludrocortisone. Mild dementia she scored 22/30 in MMSE and repeat was 24/30 very poor short term memory As per visiting nurses when they go to check on her she does not know any of her medications , could not tell when she last took any medications. and just opens one bottle and started taking pills one after the other and they had to snatch away the bottle from her hand patient is resistant to placement. Adrenal crisis due to non compliance. resolved. continue hydrocortisone. will start weaning and try to change her back to prednisone. Dr. George (endocrinology) suggested returning to 10mg pred daily instead of twice daily hydrocort in a low adherence patient, and fludro back to 0.1 if tolerated. However this plan is being delayed by persistent episodes of hypotension have changed the hydrocortisone to bid and reduced the dose of fludrocortisone. Have not yet been able to change hydrocortisone to prednisone. Leucocytosis improving No obvious source of infection, lungs are clear, afebrile, lactic acid within normal limit. Her leukocytosis is most likely secondary to chronic steroid treatment. Polyuria resolved was probably due to the IVFs she was getting. On 04/07/19 patient developed polydipsia with polyuria with a concern for central diabetes insipidus. MRI of the brain did not show any significant pituitary lesion but she does have evidence of possible stenosis or occlusion in her right ICA. Electrolyte derangements: resolved. Deconditioning: Secondary to adrenal insufficiency and acute illness treatment as above, as well as PT/OT evaluation and treatment Small cell lung cancer, right upper lobe: with right rib fractures t Follow-up with oncologist in the outpatient settings Diabetes mellitus becomes hypoglycemic in the AM. restart metformin and stop insulin. Prior history of multiple rib fractures: Pain management when necessary Incentive spirometry H/o Alcohol abuse and medication noncompliance Neuropathy diabetic and alcoholic recurrent falls Protein-calorie malnutrition. Hypokalemia CAD and peripheral arterial disease on asa and plavix. COPD Schizophrenia continue current meds Prior CVA: MMSE 24/30 once and 22/30 second time the difference is he could not do the subtractions from 100 however could spell the WORLD backwards correctly. Says that she has difficulty with numbers. ASA, plavix DVT prophylaxis: heparin 5000U Q12H VS,Fishbone, I+O VS, Fishbone, I+O Laboratory Tests 04/21/19 06:11 Vital Signs Date Time Temp Pulse Resp B/P (MAP) Pulse Ox O2 Delivery O2 Flow Rate FiO2 04/21/19 07:00 83 110/70 (83) 83 104/60 (75) 100 90/58 (69) 04/21/19 06:00 98.7 18 96 Room Air I&O- Last 24 Hours up to 6 AM 04/21/19 06:00 Intake Total 2315 ml Balance 2315 ml JESUS MUNGUIA MD Apr 21, 2019 10:34
[2019-04-21 10:51] LABS: CHOLESTEROL LEVEL 155 MG/DL (<200); CHOLESTEROL RISK RATIO 2.039 (<5); HDL CHOLESTEROL 76 MG/DL (>40); LDL CHOLESTEROL 59 MG/DL (<100); NON-HDL-C 79 MG/DL; TRIGLYCERIDES LEVEL 98 MG/DL (<150)
[2019-04-21] MEDS ORDERED: HYDROCORTISONE 10 MG TAB PO SCH (13:00)
[2019-04-21 14:00] VITALS: BP 92/54
[2019-04-21 15:55] VITALS: BP 115/71
[2019-04-21] MEDS: metFORMIN XR 500MG TAB *GLUCOPHAGE XR PO SCH (15:56)
[2019-04-21 19:00] VITALS: BP_SYST 106; BP_SYST 94; BP_SYST 99; BP_DIAS 57; BP_DIAS 62; BP_DIAS 65
[2019-04-21 20:00] VITALS: BP 86/62
[2019-04-22] MEDS: SODIUM CHLORIDE 0.9% INJ 10 ML SYR IV PRN (05:20)
[2019-04-22 05:44] LABS: HEMATOCRIT 36.5 % (36.0-47.0); HEMOGLOBIN 12.1 g/dl (12.0-15.5); MEAN CORPUSCULAR HEMOGLOBIN 32.5 pg (27.0-33.0); MEAN CORPUSCULAR HGB CONC 33.2 g/dl (32.0-36.5); MEAN CORPUSCULAR VOLUME 98.1 fl (80.0-96.0); PLATELET COUNT, AUTOMATED 244 10^3/uL (150-450); RED BLOOD COUNT 3.72 10^6/uL (4.00-5.40); WHITE BLOOD COUNT 17.4 10^3/uL (4.0-10.0)
[2019-04-22 06:00] VITALS: BP 110/70
[2019-04-22 06:03] VITALS: BP_SYST 110; BP_SYST 96; BP_SYST 98; BP_DIAS 56; BP_DIAS 60; BP_DIAS 70
[2019-04-22 06:30] LABS: ATYPICAL LYMPH 7 % (0-5); LYMPHOCYTES 23 % (16-44); MONOCYTES 3 % (0-5); NEUTROPHILS 67 % (28-66)
[2019-04-22 06:31] LABS: ANISOCYTOSIS 1+; PLATELET ESTIMATE NORMAL (NORMAL)
[2019-04-22] MEDS: HYDROCORTISONE 10 MG TAB PO SCH ×2 (06:45→15:45)
[2019-04-22 07:02] LABS: BLOOD UREA NITROGEN 17 MG/DL (7-18); CALCIUM LEVEL 8.3 MG/DL (8.8-10.2); CARBON DIOXIDE LEVEL 33 MEQ/L (21-32); CHLORIDE LEVEL 103 MEQ/L (98-107); CREATININE FOR GFR 0.45 MG/DL (0.55-1.30); GLOMERULAR FILTRATION RATE > 60.0 (>45); GLUCOSE, FASTING 76 MG/DL (70-100); POTASSIUM SERUM 3.8 MEQ/L (3.5-5.1); SODIUM LEVEL 140 MEQ/L (136-145)
[2019-04-22] MEDS: CALCIUM CARBONATE 500 MG CHEW U/D PO SCH ×3 (09:00→20:59)
[2019-04-22] MEDS ORDERED: CitaloPRAM (CeleXA) 10 MG TABLET PO SCH (09:00)
[2019-04-22] MEDS: ATORVASTATIN 20 MG TAB PO SCH (09:14)
[2019-04-22] MEDS: CLOPIDOGREL 75 MG TAB PO SCH (09:14)
[2019-04-22] MEDS: ASPIRIN 81 MG ENTERIC TAB PO SCH (09:14)
[2019-04-22] MEDS: HEPARIN SOD (PORCINE) 5000 UNITS/ML VIAL SC SCH ×2 (09:14→21:00)
[2019-04-22] MEDS: MIDODRINE 5 MG TAB PO SCH ×3 (09:14→15:45)
[2019-04-22] MEDS: FLUDROCORTISONE ACETATE 0.1 MG TAB PO SCH (09:15)
[2019-04-22] MEDS: POTASSIUM CHLORIDE 10 MEQ SR TABLET PO SCH ×2 (09:15→20:59)
[2019-04-22] MEDS: MULTIVITAMINS/MINERALS THERAP 1 TAB PO SCH (09:15)
[2019-04-22] MEDS: SODIUM CHLORIDE 0.9% INJ 10 ML SYR IV SCH (09:16)
--- NOTE | 2019-04-22 09:45 | IPNPDOC ---
Text Note Date of Service The patient was seen on 04/22/19. NOTE Subjective: No acute complaints this morning. Wants to go home. She has been cleared by PT mobility [facility]gado. however she has very poor short term memory . Does not remember to take her meds or to eat. Her daughter unable to care for her closely visits once in a while. She has been resistant to Assisted living or NH placement.psych has evaluated the patient and feel she understands her medical conditions. Objective: Vitals: see below. HDS General Exam: Alert,oriented x 3, fril and looks older than her age. hair matted and poorly groomed. Eye Exam: PERRLA, pale conjunctiva ENT Exam: MMM Neck Exam: Supple, no JVD Chest Exam: CTAB, no crackles,mild bilateral ronchi. Heart Exam: RRR, no noted murmurs, rubs or gallops Abdomen Exam: Normal bowel sounds, soft, NTND, no hepatosplenomegaly Extremity Exam: WWP, no edema Skin Exam: Normal temperature Neuro Exam: Strength at 5/5 X4 ext, Cranial Nerves 3-12 WNL Psych Exam: Oriented x 3, flat affect Labs: reviewed. normal K, Magnesium high at 3.8, Cr at baseline. Assessment: 63 years old woman with small cell lung carcinoma diagnosed in 08/2016 in her right upper lobe, noncompliant with treatment and lost to follow-up, COPD, adrenal insufficiency, schizophrenia, chronic hypertension, polyarthritis, tobacco abuse, who presented to the hospital with hypotension to 70/40 and dizziness c/b prolonged shock with profound hypotension requiring ICU transfer for pressor support. 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 At this time, she remains on steroids and hypotension has resolved with endocrinology recommending resumption of her outpatient steroids now that she is through the crisis, however c/b by episodic hypotension she has been put on hydrocortisone tid. Chronic hypotension I suspect she has autonomic neuropathy from diabetes and alcohol abuse and has chronic hypotension with episodes of orthostatic hypotension on the back ground of chronic adrenal insufficiency. i am not sure where it was diagnosed. Even with severe hypotension the patient is not tachycardic, making good urine, no features of cerebral hypoperfusion. orthostatic vitals are positive with patient symptomatic only some times. Will continue midodrine and fludrocortisone. Mild dementia she scored 22/30 in MMSE and repeat was 24/30 very poor short term memory As per visiting nurses when they go to check on her she does not know any of her medications , could not tell when she last took any medications. and just opens one bottle and started taking pills one after the other and they had to snatch away the bottle from her hand patient is resistant to placement. Adrenal crisis due to non compliance. resolved. continue hydrocortisone. will start weaning and try to change her back to prednisone. Dr. George (endocrinology) suggested returning to 10mg pred daily instead of twice daily hydrocort in a low adherence patient, and fludro back to 0.1 if tolerated. However this plan is being delayed by persistent episodes of hypotension have changed the hydrocortisone to bid and reduced the dose of fludrocortisone. Have not yet been able to change hydrocortisone to prednisone. Leucocytosis improving No obvious source of infection, lungs are clear, afebrile, lactic acid within normal limit. Her leukocytosis is most likely secondary to chronic steroid treatment. Polyuria resolved was probably due to the IVFs she was getting. On 04/07/19 patient developed polydipsia with polyuria with a concern for central diabetes insipidus. MRI of the brain did not show any significant pituitary lesion but she does have evidence of possible stenosis or occlusion in her right ICA. Electrolyte derangements: resolved. Deconditioning: Secondary to adrenal insufficiency and acute illness treatment as above, as well as PT/OT evaluation and treatment Small cell lung cancer, right upper lobe: with right rib fractures t Follow-up with oncologist in the outpatient settings Diabetes mellitus becomes hypoglycemic in the AM. restart metformin and stop insulin. Prior history of multiple rib fractures: Pain management when necessary Incentive spirometry H/o Alcohol abuse and medication noncompliance Neuropathy diabetic and alcoholic recurrent falls Protein-calorie malnutrition. Hypokalemia CAD and peripheral arterial disease on asa and plavix. COPD Schizophrenia continue current meds Prior CVA: MMSE 24/30 once and 22/30 second time the difference is he could not do the subtractions from 100 however could spell the WORLD backwards correctly. Says that she has difficulty with numbers. ASA, plavix DVT prophylaxis: heparin 5000U Q12H VS,Fishbone, I+O VS, Fishbone, I+O Laboratory Tests 11/10/19 05:27 Vital Signs Date Time Temp Pulse Resp B/P (MAP) Pulse Ox O2 Delivery O2 Flow Rate FiO2 04/22/19 06:03 85 110/70 (83) 88 98/60 (73) 96 96/56 (69) 04/22/19 06:00 97.9 17 97 Room Air I&O- Last 24 Hours up to 6 AM 04/22/19 06:00 Intake Total 2760 ml Output Total 1 ml Balance 2759 ml JESUS MUNGUIA MD Apr 22, 2019 09:45
[2019-04-22 14:00] VITALS: BP 109/70
[2019-04-22] MEDS: metFORMIN XR 500MG TAB *GLUCOPHAGE XR PO SCH (15:46)
[2019-04-22 18:21] VITALS: BP_SYST 100; BP_SYST 105; BP_SYST 93; BP_DIAS 61; BP_DIAS 65; BP_DIAS 68
[2019-04-22 22:00] VITALS: BP 99/64
[2019-04-23] MEDS: SODIUM CHLORIDE 0.9% INJ 10 ML SYR IV PRN (05:26)
[2019-04-23 05:57] LABS: HEMATOCRIT 36.2 % (36.0-47.0); MEAN CORPUSCULAR HEMOGLOBIN 32.9 pg (27.0-33.0); MEAN CORPUSCULAR HGB CONC 33.1 g/dl (32.0-36.5); MEAN CORPUSCULAR VOLUME 99.2 fl (80.0-96.0); PLATELET COUNT, AUTOMATED 241 10^3/uL (150-450); RED BLOOD COUNT 3.65 10^6/uL (4.00-5.40); WHITE BLOOD COUNT 15.7 10^3/uL (4.0-10.0)
[2019-04-23 06:22] LABS: BLOOD UREA NITROGEN 13 MG/DL (7-18); CALCIUM LEVEL 8.6 MG/DL (8.8-10.2); CARBON DIOXIDE LEVEL 32 MEQ/L (21-32); CHLORIDE LEVEL 104 MEQ/L (98-107); CREATININE FOR GFR 0.45 MG/DL (0.55-1.30); GLOMERULAR FILTRATION RATE > 60.0 (>45); GLUCOSE, FASTING 74 MG/DL (70-100); POTASSIUM SERUM 3.8 MEQ/L (3.5-5.1); SODIUM LEVEL 141 MEQ/L (136-145)
[2019-04-23] MEDS: HYDROCORTISONE 10 MG TAB PO SCH (06:41)
[2019-04-23 06:43] VITALS: BP_SYST 103; BP_SYST 108; BP_SYST 110; BP_DIAS 59; BP_DIAS 60
[2019-04-23 06:44] LABS: ANISOCYTOSIS 1+; ATYPICAL LYMPH 7 % (0-5); EOSINOPHILS 1 % (0-3); LYMPHOCYTES 17 % (16-44); MONOCYTES 11 % (0-5); NEUTROPHILS 64 % (28-66); PLATELET ESTIMATE NORMAL (NORMAL)
[2019-04-23] MEDS: HEPARIN SOD (PORCINE) 5000 UNITS/ML VIAL SC SCH ×2 (08:23→20:52)
[2019-04-23] MEDS: SODIUM CHLORIDE 0.9% INJ 10 ML SYR IV SCH (08:23)
[2019-04-23] MEDS: CALCIUM CARBONATE 500 MG CHEW U/D PO SCH ×4 (08:24→20:51)
[2019-04-23] MEDS: ASPIRIN 81 MG ENTERIC TAB PO SCH (08:24)
[2019-04-23] MEDS: MIDODRINE 5 MG TAB PO SCH ×3 (08:24→18:40)
[2019-04-23] MEDS: CLOPIDOGREL 75 MG TAB PO SCH (08:24)
[2019-04-23] MEDS: ATORVASTATIN 20 MG TAB PO SCH (08:24)
[2019-04-23] MEDS: FLUDROCORTISONE ACETATE 0.1 MG TAB PO SCH (08:24)
[2019-04-23] MEDS: CitaloPRAM (CeleXA) 10 MG TABLET PO SCH (08:25)
[2019-04-23] MEDS: predniSONE 10 MG TAB PO SCH (08:25)
[2019-04-23] MEDS: POTASSIUM CHLORIDE 10 MEQ SR TABLET PO SCH ×2 (08:25→20:51)
[2019-04-23] MEDS: MULTIVITAMINS/MINERALS THERAP 1 TAB PO SCH (08:35)
--- NOTE | 2019-04-23 11:30 | IPNPDOC ---
Text Note Date of Service The patient was seen on 04/23/19. NOTE Subjective: No acute complaints this morning. Wants to go home. She has been cleared by PT [facility]. As per psych she has decisional capacity and knows her medical problems. Objective: Vitals: see below. HDS General Exam: Alert,oriented x 3, frail and looks older than her age. hair matted and poorly groomed. Eye Exam: PERRLA, pale conjunctiva ENT Exam: MMM Neck Exam: Supple, no JVD Chest Exam: CTAB, no crackles,mild bilateral ronchi. Heart Exam: RRR, no noted murmurs, rubs or gallops Abdomen Exam: Normal bowel sounds, soft, NTND, no hepatosplenomegaly Extremity Exam: WWP, no edema Skin Exam: Normal temperature Neuro Exam: Strength at 5/5 X4 ext, Cranial Nerves 3-12 WNL Psych Exam: Oriented x 3, flat affect Labs: reviewed. normal K, Magnesium high at 3.8, Cr at baseline. Assessment: 63 years old woman with small cell lung carcinoma diagnosed in 08/2016 in her right upper lobe, noncompliant with treatment and lost to follow-up, COPD, adrenal insufficiency, schizophrenia, chronic hypertension, polyarthritis, tobacco abuse, who presented to the hospital with hypotension to 70/40 and dizziness c/b prolonged shock with profound hypotension requiring ICU transfer for pressor support. 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 At this time, she remains on steroids and hypotension has resolved with endocrinology recommending resumption of her outpatient steroids now that she is through the crisis, however c/b by episodic hypotension she has been put on hydrocortisone tid. Chronic hypotension I suspect she has autonomic neuropathy from diabetes and alcohol abuse and has chronic hypotension with episodes of orthostatic hypotension on the back ground of chronic adrenal insufficiency. i am not sure where it was diagnosed. Even with severe hypotension the patient is not tachycardic, making good urine, no features of cerebral hypoperfusion. orthostatic vitals were positive with patient symptomatic only some times. Now orthostats are negative. Will continue midodrine and fludrocortisone. Mild dementia she scored 22/30 in MMSE and repeat was 24/30 very poor short term memory As per visiting nurses when they go to check on her she does not know any of her medications , could not tell when she last took any medications. and just opens one bottle and started taking pills one after the other and they had to snatch away the bottle from her hand patient is resistant to placement. Adrenal crisis due to non compliance. resolved. continue hydrocortisone. will start weaning and try to change her back to pred nisone. Dr. George (endocrinology) suggested returning to 10mg pred daily instead of twice daily hydrocort in a low adherence patient, and fludro back to 0.1 if tolerated. However this plan is being delayed by persistent episodes of hypotension have changed the hydrocortisone to bid and reduced the dose of fludrocortisone. will change to prednisone daily 10 mg on 04/24/19 Leucocytosis improving No obvious source of infection, lungs are clear, afebrile, lactic acid within normal limit. Her leukocytosis is most likely secondary to chronic steroid treatment. Polyuria resolved was probably due to the IVFs she was getting. MRI of the brain did not show any significant pituitary lesion but she does have evidence of possible stenosis or occlusion in her right ICA. Electrolyte derangements: resolved. Deconditioning: Secondary to adrenal insufficiency and acute illness treatment as above, as well as PT/OT evaluation and treatment Small cell lung cancer, right upper lobe: with right rib fractures t Follow-up with oncologist in the outpatient settings Diabetes mellitus becomes hypoglycemic in the AM. restart metformin and stop insulin. Prior history of multiple rib fractures: Pain management when necessary Incentive spirometry H/o Alcohol abuse and medication noncompliance Neuropathy diabetic and alcoholic recurrent falls Protein-calorie malnutrition. Hypokalemia CAD and peripheral arterial disease on asa and plavix. COPD Schizophrenia continue current meds Prior CVA: MMSE 24/30 once and 22/30 second time the difference is he could not do the subtractions from 100 however could spell the WORLD backwards correctly. Says that she has difficulty with numbers. ASA, plavix DVT prophylaxis: heparin 5000U Q12H VS,Fishbone, I+O VS, Fishbone, I+O Laboratory Tests 04/23/19 05:22 Vital Signs Date Time Temp Pulse Resp B/P (MAP) Pulse Ox O2 Delivery O2 Flow Rate FiO2 04/23/19 06:43 80 110/59 (76) 80 108/59 (75) 78 103/60 (74) 11/10/19 22:00 97.8 18 95 Room Air I&O- Last 24 Hours up to 6 AM 04/23/19 06:00 Intake Total 2340 ml Output Total 1200 ml Balance 1140 ml JESUS MUNGUIA MD Apr 23, 2019 11:30
[2019-04-23 14:00] VITALS: BP 95/63
[2019-04-23] MEDS: metFORMIN XR 500MG TAB *GLUCOPHAGE XR PO SCH (18:40)
[2019-04-23 22:00] VITALS: BP 119/58
[2019-04-24] MEDS: SODIUM CHLORIDE 0.9% INJ 10 ML SYR IV PRN ×2 (05:32→20:54)
[2019-04-24 05:56] LABS: HEMATOCRIT 35.7 % (36.0-47.0); HEMOGLOBIN 11.6 g/dl (12.0-15.5); MEAN CORPUSCULAR HGB CONC 32.5 g/dl (32.0-36.5); MEAN CORPUSCULAR VOLUME 101.4 fl (80.0-96.0); PLATELET COUNT, AUTOMATED 247 10^3/uL (150-450); RED BLOOD COUNT 3.52 10^6/uL (4.00-5.40); WHITE BLOOD COUNT 18.5 10^3/uL (4.0-10.0)
[2019-04-24 06:00] VITALS: BP 98/63
[2019-04-24 06:33] LABS: ANISOCYTOSIS 1+; LYMPHOCYTES 25 % (16-44); METAMYELOCYTES 1 % (0-0); MONOCYTES 5 % (0-5); NEUTROPHILS 69 % (28-66); PLATELET ESTIMATE NORMAL (NORMAL); POLYCHROMASIA 1+
[2019-04-24 06:55] LABS: BLOOD UREA NITROGEN 21 MG/DL (7-18); CALCIUM LEVEL 8.4 MG/DL (8.8-10.2); CARBON DIOXIDE LEVEL 32 MEQ/L (21-32); CHLORIDE LEVEL 105 MEQ/L (98-107); CREATININE FOR GFR 0.44 MG/DL (0.55-1.30); GLOMERULAR FILTRATION RATE > 60.0 (>45); GLUCOSE, FASTING 86 MG/DL (70-100); POTASSIUM SERUM 3.8 MEQ/L (3.5-5.1); SODIUM LEVEL 141 MEQ/L (136-145)
[2019-04-24] MEDS: ASPIRIN 81 MG ENTERIC TAB PO SCH (08:03)
[2019-04-24] MEDS: CitaloPRAM (CeleXA) 10 MG TABLET PO SCH (08:03)
[2019-04-24] MEDS: predniSONE 10 MG TAB PO SCH (08:03)
[2019-04-24] MEDS: FLUDROCORTISONE ACETATE 0.1 MG TAB PO SCH (08:03)
[2019-04-24] MEDS: CLOPIDOGREL 75 MG TAB PO SCH (08:04)
[2019-04-24] MEDS: ATORVASTATIN 20 MG TAB PO SCH (08:04)
[2019-04-24] MEDS: MULTIVITAMINS/MINERALS THERAP 1 TAB PO SCH (08:04)
[2019-04-24] MEDS: CALCIUM CARBONATE 500 MG CHEW U/D PO SCH ×3 (08:04→20:03)
[2019-04-24] MEDS: POTASSIUM CHLORIDE 10 MEQ SR TABLET PO SCH ×2 (08:04→20:02)
[2019-04-24] MEDS: MIDODRINE 5 MG TAB PO SCH ×3 (08:04→16:20)
[2019-04-24] MEDS: HEPARIN SOD (PORCINE) 5000 UNITS/ML VIAL SC SCH ×2 (08:05→20:03)
[2019-04-24] MEDS: SODIUM CHLORIDE 0.9% INJ 10 ML SYR IV SCH (08:06)
[2019-04-24] MEDS ORDERED: MIDO5TA PO (08:46)
[2019-04-24] MEDS ORDERED: FLUD0.1T PO (08:46)
[2019-04-24 14:00] VITALS: BP 91/64
[2019-04-24] MEDS: metFORMIN XR 500MG TAB *GLUCOPHAGE XR PO SCH (16:20)
[2019-04-24 18:00] VITALS: BP_SYST 101; BP_SYST 102; BP_SYST 93; BP_DIAS 64; BP_DIAS 69; BP_DIAS 70
--- NOTE | 2019-04-24 20:35 | IPN ---
DATE: 04/24/2019 Patient requires 24/7 care and currently lives alone. There is a significant concern that patient is unable to care for herself and unable to manage taking her medications at the proper dose and frequency with high risk of readmission. At this time she had been evaluated on April 20 by a psychiatrist. She understands that not taking her medications can cause her blood pressure to decrease to the point where she may pass out and will require readmission to the hospital. Patient does have a daughter but is unfortunately unable to provide 24/7 care at home. Patient does want to go home. She understand the repercussions of passing out at home alone and does not want to be placed in assisted living or usp. Patient understands that should she not take her steroids, that she will most likely have significant drop in blood pressure to the point that she may at home. Despite knowing this, she would prefer to go home. She is currently unable to obtain 24/7 care. Temperature 98.4, pulse 84, respiratory rate 18, blood pressure 91/64, 93% on room air. GENERAL: Patient is awake, alert oriented. Appears older than her stated age. She is currently in no respiratory distress. Cachectic appearance with bitemporal wasting. Body mass index (BMI) of 18.5. Patient is disheveled appearing. Pupils are round and reactive. Extraocular muscles are intact. She is following commands. LUNGS: Clear to auscultation. No wheezes, rales, or rhonchi. HEART: S1, S2, sinus ABDOMEN: Soft, nontender, nondistended. EXTREMITIES: No edema. LABORATORY DATA: White count 18.5, hemoglobin 11, hematocrit 35, platelet count 247. Sodium 141, potassium 3.8, chloride 105, bicarbonate 32, BUN 21, creatinine 0.44, glucose of 86. Two sets of blood cultures are negative. ASSESSMENT AND PLAN: A 63-year-old female with schizophrenia, small lung cancer (CA), diagnosed August 2016, noncompliant with treatment, lost to followup, chronic obstructive pulmonary disease (COPD), adrenal insufficiency, noncompliant with her medications, chronic hypertension, polyarthritis, tobacco abuse, presented with hypotension. Complain of dizziness. Admitted to intensive care unit (ICU) for vasopressor therapy. 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 MRI was negative for a pituitary lesion. Patient has improved with a mean arterial pressure greater than 65, on steroids, Florinef, and midodrine. IMPRESSION: 1. Adrenal insufficiency with autonomic instability, currently on midodrine and Florinef. Mean arterial pressure greater than 65 currently. She follows with Dr. Susana George, endocrinology, but patient is noncompliant with her medications. 2. Adrenal crisis due to noncompliance. Resumed on all her home medications. Currently stabilized. 3. Leukocytosis. No sign of any kind of infection. Most likely secondary to steroid therapy. 4. Dementia. Mental capacity intact. Patient does understand the ramifications of not taking her medications, which can cause significant hypotension and potential , but is still exhibiting poor judgment with missing her medications. She is requiring 24/ care recommendations from physical therapy but unable to do this at home. Family is unable to provide this care, and patient is at high risk of readmission but currently refuses placement. 5. Deconditioning, most likely secondary to adrenal insufficiency and acute illness. 6. Protein calorie malnutrition due to cancer cachexia and small-cell lung cancer in the right upper lobe with metastatic lesions to the ribs 6th and 7th. Has an oncologist and noncompliant with the visits and chemotherapy. 7. Type 2 diabetes. Hypoglycemic protocol. Patient has protein calorie malnutrition and cancer cachexia. Regular diet. 7. History of alcohol abuse and medical noncompliance hindering full treatment. Mental capacity, however, is intact with Mini-Mental Status 24/30 and psychiatrist evaluation by Dr. Mcmillan. SHALA
[2019-04-24 22:00] VITALS: BP 87/50
[2019-04-25] MEDS: SODIUM CHLORIDE 0.9% INJ 10 ML SYR IV PRN (05:27)
[2019-04-25 05:51] LABS: HEMATOCRIT 35.5 % (36.0-47.0); HEMOGLOBIN 11.6 g/dl (12.0-15.5); MEAN CORPUSCULAR HEMOGLOBIN 32.9 pg (27.0-33.0); MEAN CORPUSCULAR HGB CONC 32.7 g/dl (32.0-36.5); MEAN CORPUSCULAR VOLUME 100.6 fl (80.0-96.0); PLATELET COUNT, AUTOMATED 257 10^3/uL (150-450); RED BLOOD COUNT 3.53 10^6/uL (4.00-5.40); WHITE BLOOD COUNT 19.2 10^3/uL (4.0-10.0)
[2019-04-25 06:00] VITALS: BP 100/76
[2019-04-25 06:55] LABS: BLOOD UREA NITROGEN 20 MG/DL (7-18); CALCIUM LEVEL 8.3 MG/DL (8.8-10.2); CARBON DIOXIDE LEVEL 31 MEQ/L (21-32); CHLORIDE LEVEL 105 MEQ/L (98-107); CREATININE FOR GFR 0.45 MG/DL (0.55-1.30); GLOMERULAR FILTRATION RATE > 60.0 (>45); GLUCOSE, FASTING 79 MG/DL (70-100); POTASSIUM SERUM 3.8 MEQ/L (3.5-5.1); SODIUM LEVEL 140 MEQ/L (136-145)
[2019-04-25 07:02] LABS: ANISOCYTOSIS 1+; ATYPICAL LYMPH 3 % (0-5); LYMPHOCYTES 21 % (16-44); MONOCYTES 9 % (0-5); NEUTROPHILS 67 % (28-66); PLATELET ESTIMATE NORMAL (NORMAL)
[2019-04-25] MEDS: HEPARIN SOD (PORCINE) 5000 UNITS/ML VIAL SC SCH ×2 (09:00→20:59)
[2019-04-25] MEDS: SODIUM CHLORIDE 0.9% INJ 10 ML SYR IV SCH (09:00)
[2019-04-25] MEDS: CALCIUM CARBONATE 500 MG CHEW U/D PO SCH ×4 (09:00→21:00)
[2019-04-25] MEDS: MULTIVITAMINS/MINERALS THERAP 1 TAB PO SCH (09:20)
[2019-04-25] MEDS: ASPIRIN 81 MG ENTERIC TAB PO SCH (09:20)
[2019-04-25] MEDS: MIDODRINE 5 MG TAB PO SCH ×3 (09:21→17:40)
[2019-04-25] MEDS: ATORVASTATIN 20 MG TAB PO SCH (09:21)
[2019-04-25] MEDS: FLUDROCORTISONE ACETATE 0.1 MG TAB PO SCH (09:21)
[2019-04-25] MEDS: predniSONE 10 MG TAB PO SCH (09:21)
[2019-04-25] MEDS: CLOPIDOGREL 75 MG TAB PO SCH (09:21)
[2019-04-25] MEDS: POTASSIUM CHLORIDE 10 MEQ SR TABLET PO SCH ×2 (09:21→20:59)
[2019-04-25] MEDS: CitaloPRAM (CeleXA) 10 MG TABLET PO SCH (09:21)
[2019-04-25 14:00] VITALS: BP 88/54
--- NOTE | 2019-04-25 14:38 | IPN ---
DATE: 04/25/2019 The patient continues to require visual cues and encouragement to follow commands. She has been deemed to have mental capacity per psychiatrist, Dr. Mcmillan, on 04/20/2019; however, the team is concerned about her ability to manage her activities of daily living as she is requiring visual cues and encouragement at the hospital. She lives alone. Otherwise, she is stable for medical discharge. She is unable to find 24/7 care. I have left a message with the patient's daughter, Bety Friedman, , of our concerns about finding 24/7 care. The patient currently does not have any family members that can help supervise her at home and she is refusing to go to a fpc. At this time, she is medically stable for hospital discharge, but will require 24/7 care, which she cannot provide. The patient is adamant about not being placed in a fpc. PHYSICAL EXAMINATION: VITAL SIGNS: Temperature 99.1, pulse 90, respiratory rate 17, blood pressure 100/76, 94% on room air. GENERAL: The patient appears older than her stated age, cachectic with bitemporal wasting. Decreased muscle tone. Flat affect. Speaks softly but not respiratory distress. No jugular venous distention (JVD). No thyromegaly. Dry mucous membranes. LUNGS: Diminished but clear to auscultation. No wheezing or rales. HEART: S1, S2. Irregular. ABDOMEN: Soft, nontender, nondistended. EXTREMITIES: No pitting edema. LABORATORY DATA: White count 19.2, hemoglobin 11, hematocrit 35, platelet count 257. Sodium 140, potassium 3.8, chloride 105, bicarbonate 31, BUN 20, creatinine 0.45, glucose of 79. UA is pending. Microbiology: Blood culture negative. The patient denies any shortness of breath, cough, chest pain. ASSESSMENT AND PLAN: This is a 63-year-old female with a history of schizophrenia, small cell lung cancer noncompliant with treatment, lost to followup, chronic obstructive pulmonary disease (COPD), adrenal insufficiency, noncompliant with her medications, hypertension, polyarthritis, tobacco abuse, presented with dizziness and hypotension, found to be in adrenal crisis and diabetes insipidus. MRI was negative for pituitary lesion. IMPRESSION: 1. Adrenal crisis, resolved. She was initially on vasopressor and has been in intensive care unit (ICU) care due to noncompliance with her medications. There are no signs of infectious process, fever, chills. Blood cultures were negative. Chest x-ray had no evidence of focal abnormalities previously. CT showed no pulmonary embolism. She has had irregular scarring on the right upper lobe. Echo was normal with no valve disease. She is resumed on her home dose of medications. 2. Adrenal insufficiency. On Florinef and midodrine, stable. The patient has been noncompliant in the past and concerns for cognitive impairment preventing her from resuming compliance with taking her medications. She was however found to be mentally capable of making medical decisions for herself by psychiatrist, Dr. Mcmillan, on 04/20/2019. 3. Diabetes insipidus. Most likely due to schizophrenia with polyuria and polydipsia. MRI showed no pituitary lesion, but does have evidence of possible stenosis or occlusion in the right ICA. The patient does have a history of malignant cancer with small cell lung cancer, which is a potential etiology of her diabetes insipidus, as well as psychogenic from her history of schizophrenia. 4. Protein calorie malnutrition with hypoalbuminemia, Body Mass Index (BMI) of 18.5. Nutrition will be consulted for supplementation. 5. Small cell lung cancer, lost to followup with cancer cachexia in the right upper lobe with metastatic lesions to the left 6th and 7th ribs, noncompliant with visits and chemotherapy. 6. History of alcohol abuse with medical noncompliance for treatment. Mental capacity is intact per psychiatrist, Dr. Mcmillan. 7. Cognitive impairment, mild. The patient cannot provide 24/7 supervision at home. She has mental capacity per psychiatric evaluation on 04/20/[address] Mcmillan. DISPOSITION: Unable to be discharged despite being medically stable. She does exhibit barriers for discharge, including inability to provide 24/7 care and supervision at home due to mild cognitive impairment. The patient has been deemed to be mentally capable of making decisions per psychiatric evaluation on 04/20/2019. Defer to patient and family services (PFS) for placement. The patient currently does not want to be placed, but unable to do her activities of daily living without supervision. Phone call has been made to the patient's daughter, Bety Friedman, with these concerns, . [facility]
[2019-04-25] MEDS ORDERED: FLUD0.1T PO (15:49)
[2019-04-25] MEDS ORDERED: MIDO5TA PO (15:49)
[2019-04-25] MEDS: metFORMIN XR 500MG TAB *GLUCOPHAGE XR PO SCH (17:41)
--- NOTE | 2019-04-25 17:43 | ECGEPIP ---
[facility] Test Date: 2019-04-25 Pat Name: DOMINIK COLVIN Department: Room: [place] [address] Gender: Female [employer]: JAVI : 1955 Requested By: ALIN Dumont Order Number: [id number] Reading MD: Helen Macario Measurements Intervals [place] Rate: 84 P: 81 TN: 113 QRS: 57 QRSD: 69 T: 78 QT: 361 QTc: 427 Interpretive Statements SINUS RHYTHM WITH SHORT TN INTERVAL PRIOR WITH LA OVERLOAD MODERATE ST DEPRESSION INFEROLATERAL C/W 04/15/19 NO CHANGE EXCEPT NOTED Electronically Signed on 04-25-2019 17:43:34 EST by Helen Macario
[2019-04-25 22:00] VITALS: BP 91/58
[2019-04-26 05:20] LABS: HEMATOCRIT 37.6 % (36.0-47.0); HEMOGLOBIN 12.1 g/dl (12.0-15.5); MEAN CORPUSCULAR HEMOGLOBIN 32.6 pg (27.0-33.0); MEAN CORPUSCULAR HGB CONC 32.2 g/dl (32.0-36.5); MEAN CORPUSCULAR VOLUME 101.3 fl (80.0-96.0); PLATELET COUNT, AUTOMATED 251 10^3/uL (150-450); RED BLOOD COUNT 3.71 10^6/uL (4.00-5.40); WHITE BLOOD COUNT 14.4 10^3/uL (4.0-10.0)
[2019-04-26 05:48] LABS: ATYPICAL LYMPH 1 % (0-5); BLOOD UREA NITROGEN 20 MG/DL (7-18); CALCIUM LEVEL 8.2 MG/DL (8.8-10.2); CARBON DIOXIDE LEVEL 32 MEQ/L (21-32); CHLORIDE LEVEL 104 MEQ/L (98-107); CREATININE FOR GFR 0.49 MG/DL (0.55-1.30); EOSINOPHILS 2 % (0-3); GLOMERULAR FILTRATION RATE > 60.0 (>45); GLUCOSE, FASTING 81 MG/DL (70-100); LYMPHOCYTES 26 % (16-44); METAMYELOCYTES 1 % (0-0); MONOCYTES 9 % (0-5); NEUTROPHILS 61 % (28-66); POTASSIUM SERUM 4.1 MEQ/L (3.5-5.1); SODIUM LEVEL 140 MEQ/L (136-145)
[2019-04-26 05:49] LABS: PLATELET ESTIMATE NORMAL (NORMAL)
[2019-04-26 06:00] VITALS: BP 95/64
[2019-04-26] MEDS: CALCIUM CARBONATE 500 MG CHEW U/D PO SCH ×2 (09:00→16:00)
[2019-04-26] MEDS: HEPARIN SOD (PORCINE) 5000 UNITS/ML VIAL SC SCH (09:01)
[2019-04-26] MEDS: SODIUM CHLORIDE 0.9% INJ 10 ML SYR IV SCH (09:01)
[2019-04-26] MEDS: POTASSIUM CHLORIDE 10 MEQ SR TABLET PO SCH (09:02)
[2019-04-26] MEDS: ATORVASTATIN 20 MG TAB PO SCH (09:02)
[2019-04-26] MEDS: MIDODRINE 5 MG TAB PO SCH ×3 (09:02→17:33)
[2019-04-26] MEDS: ASPIRIN 81 MG ENTERIC TAB PO SCH (09:03)
[2019-04-26] MEDS: MULTIVITAMINS/MINERALS THERAP 1 TAB PO SCH (09:03)
[2019-04-26] MEDS: CLOPIDOGREL 75 MG TAB PO SCH (09:03)
[2019-04-26] MEDS: CitaloPRAM (CeleXA) 10 MG TABLET PO SCH (09:03)
[2019-04-26] MEDS: predniSONE 10 MG TAB PO SCH (09:03)
[2019-04-26] MEDS: FLUDROCORTISONE ACETATE 0.1 MG TAB PO SCH (09:03)
[2019-04-26] MEDS ORDERED: KLOR10TA76 PO ×2 (10:54→10:57)
[2019-04-26] MEDS ORDERED: ATOR1TAB21 PO (10:54)
[2019-04-26] MEDS ORDERED: CLOP75TA2 PO (10:54)
[2019-04-26] MEDS ORDERED: CALC200T15 PO ×2 (10:54→10:55)
[2019-04-26] MEDS ORDERED: PRED10TA2 PO (10:54)
[2019-04-26] MEDS ORDERED: CELE10TA PO ×2 (10:54→16:05)
[2019-04-26] MEDS ORDERED: VITMTA PO (10:54)
[2019-04-26] MEDS ORDERED: ACET1TAB55 PO (10:54)
--- NOTE | 2019-04-26 13:14 | IPN ---
DATE: 04/26/2019 The patient continues to state that she would not consider assisted placement, that she wanted to go home. We are waiting for final plans for discharge. Medications have been sent over to [facility] in order to be placed and packaged so that the patient will not have to worry about missing her medications. She otherwise has no new complaints. Still with generalized weakness, still requiring encouragement and visual cues as well as verbal encouragement to do her activities of daily living, however she says at the bedside that she can manage. Temperature 98.1, pulse 84, respiratory rate 20, blood pressure 95/64, 94% on room air. GENERAL: The patient appears cachectic with bitemporal wasting. She has a flat affect. No jugular venous distention (JVD). No thyromegaly. No cervical lymphadenopathy. LUNGS: Diminished. HEART: S1, S2 sinus. ABDOMEN: Soft, nontender, nondistended. EXTREMITIES: Trace edema. LABORATORY DATA: White count 14, hemoglobin 12, hematocrit 37, platelet count 251. Sodium 140, potassium 4.1, chloride 104, bicarbonate 32, BUN 20, creatinine 0.49, glucose of 81. Blood culture negative. Urine culture is pending. Chest x-ray 04/15 has been reviewed. ASSESSMENT AND PLAN: This is a 63-year-old female with schizophrenia, small cell lung cancer, noncompliant with chemotherapy, lost to followup, chronic obstructive pulmonary disease (COPD), adrenal insufficiency, noncompliant with her steroids, hypertension, polyarthritis, tobacco abuse, lives alone, who presented with dizziness and hypotension, admitted for adrenal crisis and diabetes insipidus. MRI was negative for pituitary lesion. IMPRESSION: 1. Adrenal crisis, resolved, currently back on her prednisone, Florinef and midodrine. This was due to her medical noncompliance with taking her medications. There was no infectious process found on admission. Blood cultures were negative. Chest x-ray had no focal abnormalities. CT angiogram showed no pulmonary embolism. She had irregular scarring in the right upper lobe. Echo was normal with no valve disease. 2. Adrenal insufficiency. She requires maintenance Florinef and midodrine, which, due to cognitive impairment, prevents her from being compliant. We have sent her medications to [facility] in order to package them so that she will not miss any of her medications. She was evaluated by psychiatrist, Dr. Mcmillan, on 04/20/2019, who felt that she had mental capacity to go home despite recommendations for 24/7 care. 3. Diabetes insipidus. The patient's sodium level is stable, most likely due to schizophrenia, polyuria, polydipsia. MRI showed a pituitary lesion. She does have a history of small cell lung cancer as potential etiology. 4. Small cell lung cancer, lost to followup with cancer cachexia, protein calorie malnutrition. She has metastatic lesions to the left sixth and seventh ribs, noncompliant with her oncology visits and chemotherapy. 5. Protein calorie malnutrition, hypoalbuminemia with Body Mass Index (BMI) of 18.5. 6. History of alcohol abuse. 7. Medical noncompliance with treatment. 8. Mental capacity is intact per psychiatrist, Dr. Mcmillan. The patient has been referred to speech therapy for cognitive evaluation and management as an outpatient. I have left a message with the patient's daughter, Bety Friedman, , citing our concerns for the patient having cognitive impairment and not being able to take care of herself and with recommendations for 24/7 care or assisted placement. The patient at this time refuses and we have not heard from the daughter to see if they can provide care or to see if they agree that mother is best served in a assisted.
[2019-04-26 14:00] VITALS: BP 76/61
[2019-04-26] MEDS: metFORMIN XR 500MG TAB *GLUCOPHAGE XR PO SCH (17:32)
--- NOTE | 2019-05-02 00:31 | DSES ---
DATE OF ADMISSION: 04/03/2019 DATE OF DISCHARGE: 04/26/2019 CONSULTANTS DURING THIS ADMISSION: Intensive care, pulmonary critical care, Dr. Hare [employer]ROL COMMUNITY SERVICE OFFICER: Dr. Kayode Mathew, read the echocardiogram. NEPHROLOGY: Dr. Bird Fitzgerald. PSYCHIATRIST: Dr. Lindsey Vargas PRIMARY DISCHARGE DIAGNOSES: Adrenal crisis. Adrenal insufficiency. Medical noncompliance with steroid treatment. Central diabetes insipidus. Hyponatremia. Right upper lobe small cell lung cancer. Type 2 diabetes. Multiple rib fractures. Prior CVA. Patient was mentally competent to make medical decisions for herself. Despite recommendations for 03/01 care, patient insisted on being discharged home. DISCHARGE MEDICATIONS: - albuterol two puffs every 6 hours as needed for shortness of breath - aspirin 81 mg daily - atorvastatin 40 mg daily - Celexa 10 mg daily - Plavix 75 mg daily - folic acid 1 mg daily - magnesium 64 mg three times a day - metformin 500 mg daily - midodrine 10 mg three times a day - Celexa 10 mg daily - Plavix 75 mg daily - Florinef 0.1 mg daily HOSPITAL COURSE: This is a 63-year-old female with a history of medical noncompliance with her steroids with a history of adrenal insufficiency, small cell lung cancer, was on replacement therapy for adrenal insufficiency, admitted to the intensive care unit (ICU) due to severe hypotension with a history of schizophrenia and excessive fluid intake with possible central diabetes insipidus. Patient was complaining of dizziness and was found to be hypotensive. She had been on hydrocortisone 60 mg in the morning, 20 mg in the evening and fludrocortisone 0.1 daily. Visiting nurse had found the patient had low blood pressure. In the emergency room (ER), her systolic pressure was 70, lactic acid 1.7. Sodium was 131, white count 25,000. Chest x-ray was clear. Chronic rib fractures 6 and 7. She was afebrile and was admitted to the intensive care unit (ICU) and seen by barrow worker, Dr. Cedric Hare. Right internal jugular central catheter was placed. MRI of the brain due to concerns of central diabetes insipidus was obtained. There were no signs of cardiogenic shock with a fairly normal echocardiogram. No evidence of obstructive or distributive shock. Patient was started on vasopressor therapy with Levophed, which was subsequently weaned off. MRI of the brain showed no acute intracranial abnormality. Nephrology was consulted for assistance in electrolyte management with significant hypokalemia, thought to be due to use of fludrocortisone and medical noncompliance. Patient had acute kidney injury due to hypovolemia and hypotension, which improved once fludrocortisone dose was increased. Dr. Mcmillan was consulted for mental capacity, due to recurrent admissions for adrenal insufficiency, noncompliance with her steroid treatment at home, she was found to have major depressive disorder with psychotic symptoms. But psychiatrist felt that the patient understood the consequences of not complying with her treatment and was able to have an action plan if she did not feel well at home to come back to the hospital for further treatment and evaluation. Patient insisted on being discharged home despite recommendations for 03/01 care by physical therapy. Speech therapy had concerns for cognitive impairment, recommended speech therapy, further evaluation as an outpatient. Patient was discharged home due to having mental capacity but with hospital team concerns for medical noncompliance and high risk of readmission. LABS ON DISCHARGE: White count 14.4, hemoglobin 12, hematocrit 37, platelet count 251. Sodium 140, potassium 4.1, chloride 104, bicarbonate 32, BUN 20, creatinine 0.49, glucose of 81, INR 0.97, PTT 25.4, PT 12.6. Microbiology: Urine culture with methicillin-resistant Staphylococcus aureus (MRSA), resistant to clindamycin, erythromycin, oxacillin, penicillin G, sensitive to tetracycline, Bactrim, vancomycin. Two sets of blood cultures negative after 5 days. Ethyl alcohol less than 0.003. Influenza A and B are negative. Glucose is 269. IMAGING STUDIES: Chest x-ray on 04/15/2019: No acute cardiopulmonary process. MRI of the brain: No acute intracranial abnormality. Chest x-ray 04/03/2019: Clear lungs. TIME SPENT ON DISCHARGE: [address] [facility]
== END 2019-04-26 18:12 | disposition home health service (06) | DRG 424 ==
LOC: M ED 10:02 → EDBD 10:02 → M ED INP 13:51 → M PCU 15:38 → M ICU 04-04 12:34 → M MSPAV 04-08 10:35
PROVIDERS: ADMIT Internal Medicine; ATTEND General Practice
PROC: 02H633Z Insertion of Infusion Device into Right Atrium, Percutaneous Approach (ICD-10-PCS; principal; 2019-04-04)
DX: E27.2 Addisonian crisis (principal); E23.2 Diabetes insipidus; E83.42 Hypomagnesemia; E88.09 Other disorders of plasma-protein metabolism, not elsewhere classified; C34.11 Malignant neoplasm of upper lobe, right bronchus or lung; K76.0 Fatty (change of) liver, not elsewhere classified; J44.9 Chronic obstructive pulmonary disease, unspecified; E11.51 Type 2 diabetes mellitus with diabetic peripheral angiopathy without gangrene; F10.10 Alcohol abuse, uncomplicated; R53.1 Weakness; I10 Essential (primary) hypertension; E78.5 Hyperlipidemia, unspecified; F32.3 Major depressive disorder, single episode, severe with psychotic features; M13.0 Polyarthritis, unspecified; E11.40 Type 2 diabetes mellitus with diabetic neuropathy, unspecified; G62.1 Alcoholic polyneuropathy; S22.41XD Multiple fractures of ribs, right side, subsequent encounter for fracture with routine healing; F17.210 Nicotine dependence, cigarettes, uncomplicated; F03.90 Unspecified dementia, unspecified severity, without behavioral disturbance, psychotic disturbance, mood disturbance, and anxiety; Z79.84 Long term (current) use of oral hypoglycemic drugs; Z79.52 Long term (current) use of systemic steroids; Z79.899 Other long term (current) drug therapy; Z79.82 Long term (current) use of aspirin; Z91.14 Patient's other noncompliance with medication regimen; Z86.73 Personal history of transient ischemic attack (TIA), and cerebral infarction without residual deficits; X58.XXXD Exposure to other specified factors, subsequent encounter; Y92.9 Unspecified place or not applicable; Z92.21 Personal history of antineoplastic chemotherapy; R64 Cachexia; Z68.1 Body mass index [BMI] 19.9 or less, adult; E46 Unspecified protein-calorie malnutrition

== ENCOUNTER 2019-04-29 22:14 | Inpatient (IN) | payer OTHER ==
[~2019-04-29] VITALS: Ht 154.9 cm; Wt 46.2 kg
[~2019-04-29 22:14] MED LIST changes: +ACET1TAB55 PO; +CALC200T15 PO; +KLOR10TA76 PO; +PRED10TA2 PO
[2019-04-29] MEDS ORDERED: HYDROCORTISONE 100 MG/2 ML VIAL (J1720) IV ONE (23:15)
[2019-04-29] MEDS ORDERED: NS 1,000 ML IV ONE (23:15)
[2019-04-29 23:29] LABS: BASO % 0.2 % (0.0-1.0); EOS % 0.1 % (0.0-3.0); HEMATOCRIT 37.3 % (36.0-47.0); HEMOGLOBIN 12.6 g/dl (12.0-15.5); LYMPH # 1.8 10^3/uL (1.5-5.0); LYMPH % 7.9 % (24.0-44.0); MEAN CORPUSCULAR HEMOGLOBIN 33.3 pg (27.0-33.0); MEAN CORPUSCULAR HGB CONC 33.8 g/dl (32.0-36.5); MEAN CORPUSCULAR VOLUME 98.7 fl (80.0-96.0); MONO % 9.2 % (0.0-5.0); NEUTROPHILS # 18.2 10^3/uL (1.5-8.5); NEUTROPHILS % 81.8 % (36.0-66.0); PLATELET COUNT, AUTOMATED 264 10^3/uL (150-450); RED BLOOD COUNT 3.78 10^6/uL (4.00-5.40); WHITE BLOOD COUNT 22.2 10^3/uL (4.0-10.0)
[2019-04-29 23:39] LABS: MONO # 2.1 10^3/uL (0.0-0.8)
--- NOTE | 2019-04-29 23:42 | REPVR ---
PROCEDURE INFORMATION: Exam: CT Cervical Spine Without Contrast Exam date and time: 04/29/2019 11:23 PM Clinical history: 63 years old, female; Neck pain; Additional info: Syncope, memory loss TECHNIQUE: Imaging protocol: Computed tomography images of the cervical spine without contrast. Radiation optimization: All CT scans at this facility use at least one of these dose optimization techniques: automated exposure control; mA and/or kV adjustment per patient size (includes targeted exams where dose is matched to clinical indication); or iterative reconstruction. COMPARISON: CT Spine,cervical w/o contrast 10/21/2018 3:27 PM FINDINGS: Vertebrae: See Discs/spinal Canal/neural Foramina Finding. Discs/Spinal canal/Neural foramina: Degenerative changes in the atlantoaxial joint. Intervertebral osteophytes in the mid and lower cervical spine. Cysts moderate foraminal stenosis on the right at C3, moderate to severe foraminal stenosis on the right at C4, mild bilateral foraminal stenosis at C5, severe foraminal stenosis on the left at C6 wall secondary to uncinate joint hypertrophic changes. Multilevel disc osteophyte complexes in the mid and lower cervical spine without significant cord impingement. Multilevel facet joint arthropathy, right greater than left. Other bones/joints: Osteoporosis. Soft tissues: Atherosclerotic calcifications in the carotid arteries. Otherwise unremarkable. Lungs: Lung apices are normal. IMPRESSION: Degenerative spondylosis. No acute findings. Electronically signed by: Sami Abraham On 04/29/2019 23:41:51 PM
--- NOTE | 2019-04-29 23:44 | REPVR ---
PROCEDURE INFORMATION: Exam: CT Head Without Contrast Exam date and time: 04/29/2019 11:23 PM Clinical history: 63 years old, female; Syncope and collapse; Additional info: Syncope, memory loss TECHNIQUE: Imaging protocol: Computed tomography of the head without contrast. Radiation optimization: All CT scans at this facility use at least one of these dose optimization techniques: automated exposure control; mA and/or kV adjustment per patient size (includes targeted exams where dose is matched to clinical indication); or iterative reconstruction. COMPARISON: CT Head without contrast 03/19/2019 7:14 AM FINDINGS: Brain: There is mild to moderate global parenchymal volume loss slightly more pronounced in the temporal lobes anteriorly bilaterally. White matter changes are demonstrated in the subcortical, centrum semiovale and periventricular white matter consistent with age related small vessel white matter angiopathic gliosis. Expansion of the extra-axial spaces in the right posterior parietal lobe may be related to prior cortical infarct, findings which are stable. Ventricles: The degree of ventricular dilatation is normal for age and/or degree of atrophy present. Bones/joints: Unremarkable. No acute fracture. Sinuses: Visualized sinuses are unremarkable. No fluid levels. Mastoid air cells: Visualized mastoid air cells are well aerated. Soft tissues: Unremarkable. IMPRESSION: 1. There is mild to moderate global parenchymal volume loss slightly more pronounced in the temporal lobes anteriorly bilaterally. White matter changes are demonstrated in the subcortical, centrum semiovale and periventricular white matter consistent with age related small vessel white matter angiopathic gliosis. 2. The degree of ventricular dilatation is normal for age and/or degree of atrophy present. Electronically signed by: Sami Abraham On 04/29/2019 23:43:55 PM
[2019-04-30] VITALS (30 sets, daily range): BP systolic 71–115; BP diastolic 51–75
[2019-04-30 00:08] LABS: ALBUMIN 3.3 GM/DL (3.2-5.2); ALT/SGPT 38 U/L (12-78); BILIRUBIN,DIRECT 0.6 MG/DL (0.0-0.2); BILIRUBIN,TOTAL 2.4 MG/DL (0.2-1.0); BLOOD UREA NITROGEN 16 MG/DL (7-18); CARBON DIOXIDE LEVEL 26 MEQ/L (21-32); CHLORIDE LEVEL 96 MEQ/L (98-107); CK-MB VALUE MASS 12.7 NG/ML (<3.6); CPK CREATINE PHOSPHOKINASE 1780 U/L (26-192); ETHYL ALCOHOL (ETHANOL) < 0.003 % (0.000-0.010); GLOMERULAR FILTRATION RATE > 60.0 (>45); GLUCOSE, FASTING 72 MG/DL (70-100); INR 1.1; LIPASE 95 U/L (73-393); MB/CK RELATIVE INDEX 0.71 (< OR =4); POTASSIUM SERUM 4.1 MEQ/L (3.5-5.1); PROTHROMBIN TIME 13.9 SECONDS (11.8-14.0); SODIUM LEVEL 132 MEQ/L (136-145); TOTAL PROTEIN 6.6 GM/DL (6.4-8.2); TROPONIN I < 0.02 NG/ML (< 0.10)
[2019-04-30 00:09] LABS: PARTIAL THROMBOPLASTIN TIME 28.1 SECONDS (25.0-38.4)
[2019-04-30] MEDS ORDERED: cefTRIAXone SOD 2 GM in D5W MINI-BAG PLUS 50 ML IV ONE (02:45)
[2019-04-30] MEDS ORDERED: NS 1,480 ML in IV 1 EA IV ONE (02:45)
--- NOTE | 2019-04-30 02:46 | HPEPDOC ---
[facility] Medical History & Physical Date of Admission Apr 30, 2019 Date of Service: Apr 30, 2019 Attending Physician: JOSE RAMON ARZOLA MD History and Physical TIME OF SERVICE: 3:30 AM CHIEF COMPLAINT: Fall HISTORY OF PRESENT ILLNESS: This is a 63-year-old female who presented with complaints of losing her balance and falling a week ago. As result of the fall she hit her head and hit her arms. Shortly thereafter she developed right sided, nonradiating, 8 /10 at its worst in severity, rib pain. She came to the hospital today because the pain became worse. She denies feeling dizzy, having palpitations, having chest pain, having shortness of breath, having nausea, vomiting, diarrhea, fever or chills prior to the fall. She had coughing prior to the fall, but this resolved over the last week. Per she has a hx of noncompliance and she had a syncopal episode. On arrival, her blood pressure was 70/40 and her heart rate was 130. After receiving IV fluids and hydrocortisone. Her blood pressure improved to 98/50 and her heart rate decreased to 90 which is close to her baseline. She also received antibiotics for possible UTI. REVIEW OF SYSTEMS: 12 point review of systems negative except as listed in HPI PAST MEDICAL/ SURGICAL HISTORY: Small cell lung cancer at [facility] COPD ? Adrenal insufficiency Schizophrenia SOCIAL HISTORY: Tobacco abuse Remote history of alcohol abuse Denies recreational drug use FAMILY HISTORY: Mother had CAD ALLERGIES: Please see below. HOME MEDICATIONS: Please see below. PHYSICAL EXAMINATION: VITAL SIGNS: Please see below. GENERAL APPEARANCE: Slim build, well-developed, not in apparent distress HEENT: Normocephalic, atraumatic, mucous membranes slightly dry CARDIOVASCULAR: Tachycardic heart rate around 100 there. No murmurs, rubs or gallops LUNGS: Lungs are clear to auscultation bilaterally on room air. She does not grimace with palpation of the ribs on the right side ABDOMEN: positive bowel sounds. Abdomen is soft and nontender on palpation MUSCULOSKELETAL: range of motion is intact in all 4 extremities INTEGUMENT: she appears jaundice. She has bruises on the dorsal surface of her hands and abrasions on the posterior aspect of her lower arms NEUROLOGICAL: cranial nerves II-12 are grossly intact. Speech is not dysarthric PSYCHIATRIC: Alert and oriented, able to understand and follow commands LABORATORY DATA: See below. IMAGING: CT head " IMPRESSION: 1. There is mild to moderate global parenchymal volume loss slightly more pronounced in the temporal lobes anteriorly bilaterally. White matter changes are demonstrated in the subcortical, centrum semiovale and periventricular white matter consistent with age related small vessel white matter angiopathic gliosis. 2. The degree of ventricular dilatation is normal for age and or degree of atrophy present. " CT cervical spine " IMPRESSION: Degenerative spondylosis. No acute findings." The chest x-ray shows flattening of the ribs and the diaphragm, possibly due to COPD but no acute process. The final read is pending MICROBIOLOGY: Please see below. ASSESSMENT: Ms. Simmons is a 63-year-old female with past medical history of lung cancer, adrenal insufficiency, COPD ?, schizophrenia, and who will be admitted for management of rhabdomyolysis likely secondary to a fall and hypotension. PLAN: 1. Hypotension Likely due to due to adrenal insufficiency and dehydration. Suspect the patient may not be compliant with her medications This improved after receiving steroids and IV fluids. The hyponatremia is likely due to adrenal insufficiency Plan: Admit to PCU/continue IV fluids and steroids/follow-up ACTH stim test & TSH / resume midodrine, fludrocortisone, and prednisone 2. SIRS. She doesn't appear to be toxic on physical exam, she is not flushed or di aphoretic. SIRS criteria include tachycardia and elevated WBC count. Leukocytosis may be reactive 2/2 fall or due to steroid use. The tachycardia & lactic acidosis are likely due to dehydration. Plan: Follow up repeat lactic acid/continue IV fluids/follow-up CBC/follow-up blood cx 3. Presyncope vs Syncope The patient reports losing her balance which may have been due to orthostatic hypotension CT of the head was unremarkable Plan: Continue with IV fluids/telemetry/follow-up orthostats/fall precautions/PT eval to see if she needs a walking aide and or out pt PT /Hold atorvastatin as it can cause myalgias and syncope 4. Rhabdomyolysis Likely secondary to a fall. Plan: Continue the IV fluids trend CPK monitor renal function 5. Asymptomatic bacteriuria. The UA has been reviewed. She denied having abdominal pain She received one dose of ceftriaxone in the ED Plan: No need to treat asymptomatic bacteriuria 6. Schizophrenia. Plan: Continue with home meds / follow-up with behavioral health on an outpatient basis 7. Nicotine abuse. Plan: Declined nicotine patch/smoking cessation education DVT prophylaxis with Lovenox. Disposition likely home after more than 2 midnight stay LATE ENTRY 630AM The patient's BP has been persistently low therefore we will start norepi. Vital Signs Vital Signs Date Time Temp Pulse Resp B/P (MAP) Pulse Ox O2 Delivery O2 Flow Rate FiO2 04/30/19 02:00 96 26 86/57 (67) 96 Room Air 04/29/19 23:03 98.2 Laboratory Data Labs 24H Laboratory Tests 2 04/29/19 23:15: Immature Granulocyte % (Auto) 0.8, Neutrophils (%) (Auto) 81.8H, Lymphocytes (%) (Auto) 7.9L, Monocytes (%) (Auto) 9.2H, Eosinophils (%) (Auto) 0.1, Basophils (%) (Auto) 0.2, Neutrophils # (Auto) 18.2H, Lymphocytes # (Auto) 1.8, Monocytes # (Auto) 2.1H, Eosinophils # (Auto) 0.0, Basophils # (Auto) 0.0, Nucleated Red Blood Cells % (auto) 0.0, Prothrombin Time 13.9, Prothromb Time International Ratio 1.10, Activated Partial Thromboplast Time 28.1, Urine Color NAKIA, Urine Appearance HAZY, Urine pH 6.0, Urine Specific [place] 1.018, Urine Protein 1+H, Urine Glucose (UA) NEGATIVE, Urine Ketones TRACEH, Urine Blood NEGATIVE, Urine Nitrite NEGATIVE, Urine Bilirubin NEGATIVE, Urine Urobilinogen 4.0H, Urine Leukocyte Esterase 3+H, Urine WBC (Auto) 114H, Urine RBC (Auto) 5H, Urine Hyaline Casts (Auto) 0, Urine Bacteria (Auto) NEGATIVE, Urine Squamous Epithelial Cells 5, Urine Transitional Epithelial Cells 1, Urine Amorphous Sediment SMALLH, Urine Sperm (Auto) , Anion Gap 10, Glomerular Filtration Rate > 60.0, Lactic Acid Level 3.9*H, Calcium Level 9.0, Total Bilirubin 2.4H, Direct Bilirubin 0.6H, Aspartate Amino Transf (AST/SGOT) 50H, Alanine Aminotransferase (ALT/SGPT) 38, Alkaline Phosphatase 68, Total Creatine Kinase 1780H, Creatine Kinase MB 12.7H, Creatine Kinase MB Relative Index 0.71, Troponin I < 0.02, Total Protein 6.6, Albumin 3.3, Albumin/Globulin Ratio 1.00, Lipase 95, Ethyl Alcohol Level < 0.003 04/29/19 23:38: POC Glucose (Misc Panel) 81, POC Sodium (Misc Panel) 130L, POC Potassium (Misc Panel) 3.2L, POC Chloride (Misc Panel) 94L, POC Total CO2 (Misc Panel) 25.0, POC Blood Urea Nitrogen (Misc Panel 15, POC Ionized Calcium (Misc Panel) 4.1L, POC Creatinine (Misc Panel) 0.5L, POC Hematocrit (Misc Panel) 39.0 CBC/BMP Laboratory Tests 04/29/19 23:15 Microbiology Microbiology 04/29/19 Urine Culture, Received Pending 04/29/19 Blood Culture, Received Pending 04/29/19 Blood Culture, Received Pending Home Medications Scheduled Atorvastatin Calcium (Atorvastatin Calcium) 40 Mg Tablet, 40 MG PO DAILY Citalopram Hydrobromide (Celexa) 10 Mg Tablet, 10 MG PO DAILY Clopidogrel Bisulfate (Plavix) 75 Mg Tablet, 75 MG PO DAILY Fludrocortisone Acetate (Fludrocortisone Acetate) 0.1 Mg Tablet, 0.1 MG PO DAILY Midodrine HCl (Midodrine HCl) 5 Mg Tablet, 10 MG PO TID 0800, 1200 AND 1600 Multivitamin (Multivitamins) 1 Each Capsule, 1 CAP PO DAILY Potassium Chloride (Klor-Con M10) 10 Meq Tab.er.prt, 20 MEQ PO BID Prednisone (Prednisone) 10 Mg Tablet, 10 MG PO DAILY Scheduled PRN Acetaminophen (Acetaminophen) 325 Mg Tablet, 650 MG PO Q4H PRN for PAIN Calcium Carbonate (Tums) 200 Mg Tab.chew, 400 MG PO TID PRN for INDIGESTION Allergies Coded Allergies: No Known Allergies (Unverified , 03/27/19) A-FIB/CHADSVASC A-FIB History Current/History of A-Fib/PAF?: No Current PO Anticoag Therapy: No JOSE RAMON ARZOLA MD Apr 30, 2019 02:46
[2019-04-30] MEDS ORDERED: ACETAMINOPHEN TAB 650MG DOSE (2X325MG) PO PRN (03:00)
[2019-04-30] MEDS ORDERED: ACET1TAB55 PO (03:02)
[2019-04-30] MEDS ORDERED: TUMS500C PO (03:02)
[2019-04-30] MEDS ORDERED: PLAV1TAB2 PO (03:02)
[2019-04-30] MEDS ORDERED: FLUD0.1T PO (03:02)
[2019-04-30] MEDS ORDERED: ATOR40TA75 PO (03:02)
[2019-04-30] MEDS ORDERED: PRED10TA2 PO (03:02)
[2019-04-30] MEDS ORDERED: CELE10TA PO (03:02)
[2019-04-30] MEDS ORDERED: MULTCAP PO (03:02)
[2019-04-30] MEDS ORDERED: MIDO5TA PO (03:02)
[2019-04-30] MEDS ORDERED: KLOR10TA76 PO (03:02)
[2019-04-30] MEDS ORDERED: SODIUM CHLORIDE 0.9% 1000ML IV ONE (04:15)
[2019-04-30] MEDS ORDERED: CALCIUM CARBONATE 500 MG CHEW U/D PO PRN (04:15)
[2019-04-30 04:58] LABS: MEAN CORPUSCULAR HEMOGLOBIN 32.6 pg (27.0-33.0); MEAN CORPUSCULAR HGB CONC 31.9 g/dl (32.0-36.5); MEAN CORPUSCULAR VOLUME 102.2 fl (80.0-96.0); PLATELET COUNT, AUTOMATED 222 10^3/uL (150-450); RED BLOOD COUNT 3.13 10^6/uL (4.00-5.40); WHITE BLOOD COUNT 13.3 10^3/uL (4.0-10.0)
[2019-04-30 05:01] LABS: HEMOGLOBIN 10.2 g/dl (12.0-15.5); VENOUS BASE EXCESS -1.2 (-2.0-2.0); VENOUS HCO3 23.3 MEQ/L (23.0-27.0); VENOUS O2 SATURATION 81.8 % (60.0-80.0); VENOUS PARTIAL PRESSURE CO2 37.8 mmHg (38.0-50.0); VENOUS PARTIAL PRESSURE O2 47.6 mmHg (30.0-50.0); VENOUS PH 7.407 UNITS (7.330-7.430); VENOUS STANDARD HCO3 23.2 MEQ/L; VENOUS TOTAL CO2 24.4 MEQ/L (24.0-28.0)
[2019-04-30 05:07] LABS: THYROID STIMULATING HORMONE 0.899 uIU/ML (0.358-3.740)
[2019-04-30] MEDS ORDERED: MIDODRINE 5 MG TAB PO ONE (05:15)
[2019-04-30] MEDS ORDERED: NS 1,000 ML IV SCH (05:15)
[2019-04-30 05:46] LABS: BLOOD UREA NITROGEN 10 MG/DL (7-18); CALCIUM LEVEL 7.5 MG/DL (8.8-10.2); CARBON DIOXIDE LEVEL 24 MEQ/L (21-32); CHLORIDE LEVEL 106 MEQ/L (98-107); CPK CREATINE PHOSPHOKINASE 1276 U/L (26-192); CREATININE FOR GFR 0.56 MG/DL (0.55-1.30); GLOMERULAR FILTRATION RATE > 60.0 (>45); GLUCOSE, FASTING 186 MG/DL (70-100); POTASSIUM SERUM 3.5 MEQ/L (3.5-5.1); SODIUM LEVEL 138 MEQ/L (136-145)
[2019-04-30] MEDS ORDERED: LevoFLOXacin IV 500 MG in IV 1 EA IV SCH (06:00)
[2019-04-30] MEDS ORDERED: NOREPINEPHRINE BITARTRATE 8 MG in D5W 500 ML IV SCH ×2 (06:28→07:00)
[2019-04-30] MEDS ORDERED: NS 1,000 ML IV ONE ×2 (07:45→17:30)
[2019-04-30] MEDS: HYDROCORTISONE 100 MG/2 ML VIAL (J1720) IV SCH ×4 (07:58→23:08)
[2019-04-30] MEDS ORDERED: MIDODRINE 5 MG TAB PO SCH (08:00)
--- NOTE | 2019-04-30 08:25 | REP ---
Portable chest x-ray: Single view. History: Leukocytosis. Comparison study: April 15, 2019. Findings: An Odoyhn-D-Oylh catheter is noted in place via the left side with its tip in the expected location of the superior vena cava. Monitoring electrodes are seen. Lungs are hyperinflated overall. There is right apical pleuroparenchymal fibrosis again noted unchanged. Heart is not enlarged. No acute infiltrate is seen. Impression: No acute infiltrate noted. Electronically Signed by Jefry Chau MD 04/30/2019 08:17 A
[2019-04-30] MEDS ORDERED: predniSONE 10 MG TAB PO SCH (09:00)
[2019-04-30 10:06] LABS: CORTISOL BASELINE 23.1 UG/DL (4.3-22.4)
[2019-04-30] MEDS: NS 1,000 ML IV SCH ×3 (10:15→18:58)
[2019-04-30] MEDS: FLUDROCORTISONE ACETATE 0.1 MG TAB PO SCH (10:20)
[2019-04-30] MEDS: CLOPIDOGREL 75 MG TAB PO SCH (10:20)
[2019-04-30] MEDS: POTASSIUM CHLORIDE 10 MEQ SR TABLET PO SCH ×2 (10:20→20:32)
[2019-04-30] MEDS: CitaloPRAM (CeleXA) 10 MG TABLET PO SCH (10:20)
[2019-04-30] MEDS: ENOXAPARIN 40 MG/0.4 ML SYRINGE (J1650) SC SCH (10:21)
[2019-04-30] MEDS ORDERED: NOREPINEPHRINE BITARTRATE 8 MG in D5W 492 ML IV SCH (10:30)
[2019-04-30 12:28] LABS: BASO % 0.1 % (0.0-1.0); LYMPH # 0.5 10^3/uL (1.5-5.0); LYMPH % 3.5 % (24.0-44.0); MEAN CORPUSCULAR HGB CONC 32.3 g/dl (32.0-36.5); MEAN CORPUSCULAR VOLUME 102.3 fl (80.0-96.0); MONO # 0.5 10^3/uL (0.0-0.8); MONO % 3.7 % (0.0-5.0); NEUTROPHILS # 12.6 10^3/uL (1.5-8.5); NEUTROPHILS % 92.1 % (36.0-66.0); PLATELET COUNT, AUTOMATED 247 10^3/uL (150-450); RED BLOOD COUNT 3.03 10^6/uL (4.00-5.40); WHITE BLOOD COUNT 13.6 10^3/uL (4.0-10.0)
[2019-04-30 12:58] LABS: ERYTHROCYTE SEDIMENTATION RATE 45 mm/hr (0-30)
[2019-04-30] MEDS: VITAMIN A & D OINTMENT 60 GM TOP SCH ×4 (13:00→20:33)
[2019-04-30 13:14] LABS: C REACTIVE PROTEIN QUANTITATIV 8.62 MG/DL (0.00-0.30); CK-MB VALUE MASS 8.4 NG/ML (<3.6); CPK CREATINE PHOSPHOKINASE 1340 U/L (26-192); MB/CK RELATIVE INDEX 0.63 (< OR =4); TROPONIN I < 0.02 NG/ML (< 0.10)
[2019-04-30] MEDS: MIDODRINE 5 MG TAB PO SCH ×2 (13:32→17:38)
--- NOTE | 2019-04-30 15:22 | IPN ---
DATE: 04/30/2019 The patient's case was discussed with Dr. Gutierrez, psychiatrist continuity clerk. The patient at the bedside says that she understands that not taking her medications can cause low blood pressure and , possible infection, but states that she wants to stay at home and not be placed in a jail or assisted living. This is the patient's fourth admission to the hospital in the past 2 months. She was recently discharged on 04/26/2019 with adrenal crisis with no source of infection at that time. She was admitted this morning for possible urinary tract infection (UTI) and rhabdomyolysis and severe sepsis and septic shock requiring Levophed drip and IV fluid hydration. Per Dr. Gutierrez, psychiatrist, since the patient is able to state that she knows the consequences of her actions that she has mental capacity; however, the patient is exhibiting very poor judgment and has been admitted four times due to her poor judgment. She is continued currently on IV fluids, Levophed and antibiotics for septic shock until the mean arterial pressure is greater than 70. For her adrenal crisis, she is currently on antibiotics, hydrocortisone 100 mg every 6 hours, antibiotics and IV fluids. Rhabdomyolysis, she is continued on intravenous fluids until she regains good oral intake and appetite. Limited stage right non small cell lung cancer diagnosed in August 2016, status post induction carboplatin and etoposide four cycles, followed by SBRT with residual 1.4 to 2 cm right upper lobe nodule, which is increased in size. The patient has no new sites of disease. The patient refused IV contrast. She was supposed to have a followup with Dr. Wendy Banuelos as an outpatient but has remained noncompliant. [facility]
--- NOTE | 2019-04-30 18:00 | ECGEPIP ---
[facility] - ED Test Date: 2019-04-29 Pat Name: DOMINIK COLVIN Department: Room: [place] [address] Gender: Female Craft Manager: SYDNIE : [id number] Requested By: MISSY Navarro Order Number: [id number] Reading MD: Mckayla Curtis Measurements Intervals [place] Rate: 110 P: 88 MD: 112 QRS: 66 QRSD: 66 T: 81 QT: 344 QTc: 467 Interpretive Statements SINUS TACHYCARDIA WITH SHORT MD INTERVAL RIGHT ATRIAL ENLARGEMENT MODERATE ST DEPRESSION INCREASED RATE 04/25/19 Electronically Signed on 04-30-2019 18:00:21 EST by Mckayla Curtis
[2019-04-30] MEDS: PIPERACILLIN/TAZOBACTAM SOD 3.375 GM in D5W MINI-BAG PLUS 50 ML IV SCH ×2 (18:59→23:08)
[2019-05-01] VITALS (13 sets, daily range): BP systolic 68–122; BP diastolic 49–77
[2019-05-01] MEDS: NS 1,000 ML IV SCH ×2 (03:34→06:50)
[2019-05-01] MEDS: PIPERACILLIN/TAZOBACTAM SOD 3.375 GM in D5W MINI-BAG PLUS 50 ML IV SCH (05:37)
[2019-05-01] MEDS: HYDROCORTISONE 100 MG/2 ML VIAL (J1720) IV SCH ×3 (05:37→17:59)
[2019-05-01] MEDS ORDERED: MAG SULF 1GM/100ML (MAG RUN) 1 GM in IV 1 EA IV ONE (08:00)
[2019-05-01] MEDS: CLOPIDOGREL 75 MG TAB PO SCH (08:08)
[2019-05-01] MEDS: FLUDROCORTISONE ACETATE 0.1 MG TAB PO SCH (08:08)
[2019-05-01] MEDS: MIDODRINE 5 MG TAB PO SCH ×3 (08:08→16:11)
[2019-05-01] MEDS: CitaloPRAM (CeleXA) 10 MG TABLET PO SCH (08:08)
[2019-05-01] MEDS: ENOXAPARIN 40 MG/0.4 ML SYRINGE (J1650) SC SCH (08:09)
[2019-05-01] MEDS: POTASSIUM CHLORIDE 10 MEQ SR TABLET PO SCH ×2 (08:09→20:00)
[2019-05-01] MEDS: VITAMIN A & D OINTMENT 60 GM TOP SCH ×4 (08:09→20:02)
[2019-05-01 08:20] LABS: BASO % 0.1 % (0.0-1.0); HEMOGLOBIN 9.4 g/dl (12.0-15.5); LYMPH # 0.9 10^3/uL (1.5-5.0); LYMPH % 6.8 % (24.0-44.0); MEAN CORPUSCULAR HEMOGLOBIN 32.5 pg (27.0-33.0); MEAN CORPUSCULAR HGB CONC 32.4 g/dl (32.0-36.5); MEAN CORPUSCULAR VOLUME 100.3 fl (80.0-96.0); MONO # 0.9 10^3/uL (0.0-0.8); MONO % 6.3 % (0.0-5.0); NEUTROPHILS # 11.7 10^3/uL (1.5-8.5); NEUTROPHILS % 85.8 % (36.0-66.0); PLATELET COUNT, AUTOMATED 209 10^3/uL (150-450); RED BLOOD COUNT 2.89 10^6/uL (4.00-5.40); WHITE BLOOD COUNT 13.7 10^3/uL (4.0-10.0)
[2019-05-01 08:48] LABS: BLOOD UREA NITROGEN 5 MG/DL (7-18); CALCIUM LEVEL 7.8 MG/DL (8.8-10.2); CARBON DIOXIDE LEVEL 31 MEQ/L (21-32); CHLORIDE LEVEL 102 MEQ/L (98-107); CREATININE FOR GFR 0.48 MG/DL (0.55-1.30); GLOMERULAR FILTRATION RATE > 60.0 (>45); GLUCOSE, FASTING 134 MG/DL (70-100); POTASSIUM SERUM 2.2 MEQ/L (3.5-5.1); SODIUM LEVEL 139 MEQ/L (136-145)
[2019-05-01] MEDS ORDERED: POTASSIUM CHLORIDE 10 MEQ SR TABLET PO ONE ×3 (10:00→17:00)
--- NOTE | 2019-05-01 14:28 | IPNPDOC ---
Text Note Date of Service The patient was seen on 05/01/19. NOTE SUBJECTIVE: Does not want to talk. Says wants to go home. Vitals: see below. General Exam: Alert,oriented x 3, frail and looks older than her age. hair matted and poorly groomed. Eye Exam: PERRLA, pale conjunctiva ENT Exam: MMM Neck Exam: Supple, no JVD Chest Exam: CTAB, no crackles, mild bilateral ronchi. Heart Exam: RRR, no noted murmurs, rubs or gallops Abdomen Exam: Normal bowel sounds, soft, NTND, no hepatosplenomegaly Extremity Exam: WWP, no edema Skin Exam: Normal temperature Neuro Exam: Strength at 5/5 X4 ext, Cranial Nerves 3-12 WNL Psych Exam: Oriented x 3, flat affect Labs: reviewed Assessment: 63 years old woman with small cell lung carcinoma diagnosed in 08/2016 in her right upper lobe, noncompliant with treatment and lost to follow-up, COPD, adrenal insufficiency, schizophrenia, chronic hypertension, polyarthritis, tobacco abuse, who presented to the hospital after a fall at home. Patient said that she was just standing then fell. Denied LOC. As result of the fall she hit her head and hit her arms. Shortly thereafter she developed right sided rib pain. She came to the hospital because the pain became worse. She was discharged on 04/26/19. Unsure which day she fell. SHe was very dirty , soiled on arrival. She was with hypotension to 70/40 requiring ICU admission for pressor support. This is the patient's fourth admission to the hospital in the past 2 months. She was recently discharged on 04/26/2019 with adrenal crisis with no source of infection at that time. Seems like she was in adrenal crisis due to medication non compliance. She has been evaluated by psychiatry before and has been deemed to understand her medical issues and so can make her own decisions. She has refused NH or Assisted living placement in david past. She does not have any home support system. Adrenal crisis due to medication noncomplaince will continue with hydrocortisone then taper it and switch back to oral prednisone 10 mg daily. continue fludrocortisone 0.1 mg daily Ok to keep MAP at 50 to 55. Dirty UA urine culture contaminated. She was very dirty and soiled on arrival will dc antibiotics. Chronic hypotension I suspect she has autonomic neuropathy from diabetes and alcohol abuse and has chronic hypotension with episodes of orthostatic hypotension on the back ground of chronic adrenal insufficiency. i am not sure where it was diagnosed. Even with severe hypotension the patient is not tachycardic, making good urine, no features of cerebral hypoperfusion. Will continue midodrine and fludrocortisone. OK to keep MAP at 50 to 55. Mild dementia she scored 22/30 in MMSE and repeat was 24/30 in the prior admission. very poor short term memory As per visiting nurses when they go to check on her she does not know any of her medications , could not tell when she last took any medications. and just opens one bottle and started taking pills one after the other and they had to snatch away the bottle from her hand patient is resistant to placement. Leucocytosis improving No obvious source of infection, lungs are clear, afebrile, lactic acid within normal limit. Her leukocytosis is most likely secondary to chronic steroid treatment. Severe hypokalemia replaced will recheck. Small cell lung cancer, right upper lobe: with right rib fractures 6th and 7th Follow-up with oncologist in the outpatient settings Diabetes mellitus becomes hypoglycemic in the AM. Prior history of multiple rib fractures: Pain management when necessary H/o Alcohol abuse and medication noncompliance Neuropathy diabetic and alcoholic recurrent falls Protein-calorie malnutrition. CAD and peripheral arterial disease on asa and plavix. COPD Schizophrenia continue current meds Prior CVA: ASA, plavix VS,Fishbone, I+O VS, Fishbone, I+O Laboratory Tests 05/01/19 07:55 Vital Signs Date Time Temp Pulse Resp B/P (MAP) Pulse Ox O2 Delivery O2 Flow Rate FiO2 05/01/19 12:33 68/51 (57) 89 05/01/19 12:32 98.2 80 20 Room Air 04/30/19 18:44 2.0 I&O- Last 24 Hours up to 6 AM 05/01/19 06:00 Intake Total 5187 ml Output Total 2750 ml Balance 2437 ml JESUS MUNGUIA MD May 01, 2019 14:28
[2019-05-02] VITALS (7 sets, daily range): BP systolic 66–110; BP diastolic 45–70
[2019-05-02] MEDS: HYDROCORTISONE 100 MG/2 ML VIAL (J1720) IV SCH ×5 (00:16→22:05)
[2019-05-02] MEDS ORDERED: SODIUM CHLORIDE 0.9% INJ 10 ML SYR IV PRN (03:45)
[2019-05-02] MEDS: VITAMIN A & D OINTMENT 60 GM TOP SCH ×4 (06:11→22:06)
[2019-05-02 08:02] LABS: BLOOD UREA NITROGEN 6 MG/DL (7-18); CALCIUM LEVEL 8.2 MG/DL (8.8-10.2); CARBON DIOXIDE LEVEL 34 MEQ/L (21-32); CHLORIDE LEVEL 96 MEQ/L (98-107); CREATININE FOR GFR 0.65 MG/DL (0.55-1.30); GLOMERULAR FILTRATION RATE > 60.0 (>45); GLUCOSE, FASTING 210 MG/DL (70-100); MAGNESIUM LEVEL 1.6 MG/DL (1.8-2.4); POTASSIUM SERUM 2.6 MEQ/L (3.5-5.1); SODIUM LEVEL 137 MEQ/L (136-145)
[2019-05-02] MEDS: CitaloPRAM (CeleXA) 10 MG TABLET PO SCH (08:22)
[2019-05-02] MEDS: FLUDROCORTISONE ACETATE 0.1 MG TAB PO SCH (08:22)
[2019-05-02] MEDS: ENOXAPARIN 40 MG/0.4 ML SYRINGE (J1650) SC SCH (08:22)
[2019-05-02] MEDS: MIDODRINE 5 MG TAB PO SCH ×3 (08:22→16:36)
[2019-05-02] MEDS: CLOPIDOGREL 75 MG TAB PO SCH (08:22)
[2019-05-02] MEDS: POTASSIUM CHLORIDE 10 MEQ SR TABLET PO SCH ×4 (08:22→22:04)
[2019-05-02] MEDS ORDERED: POTASSIUM CHLORIDE 10 MEQ SR TABLET PO SCH (09:00)
[2019-05-02] MEDS: SODIUM CHLORIDE 0.9% INJ 10 ML SYR IV SCH (09:00)
[2019-05-02] MEDS: MAG SULF 1GM/100ML (MAG RUN) 1 GM in IV 1 EA IV SCH ×2 (09:37→10:47)
[2019-05-02] MEDS: MAGNESIUM OXIDE 400 MG TAB (MAG-OX) PO SCH ×2 (09:38→22:04)
[2019-05-02] MEDS ORDERED: POTASSIUM CHLORIDE 10 MEQ SR TABLET PO ONE (11:00)
[2019-05-02] MEDS: KCL 40MEQ in NS 1000ML 1,000 ML IV SCH ×2 (12:02→22:05)
--- NOTE | 2019-05-02 13:14 | IPNPDOC ---
Text Note Date of Service The patient was seen on 05/02/19. NOTE SUBJECTIVE: Does not want to talk. Says she is OK. Says she fell at home and got up by herself. does not remember who called the ambulance. Vitals: see below. General Exam: Alert,oriented x 3, frail and looks older than her age. hair matted and poorly groomed. Eye Exam: PERRLA, pale conjunctiva ENT Exam: MMM Neck Exam: Supple, no JVD Chest Exam: CTAB, no crackles, mild bilateral ronchi. Heart Exam: RRR, no noted murmurs, rubs or gallops Abdomen Exam: Normal bowel sounds, soft, NTND, no hepatosplenomegaly Extremity Exam: WWP, no edema Skin Exam: Normal temperature Neuro Exam: Strength at 5/5 X4 ext, Cranial Nerves 3-12 WNL Psych Exam: Oriented x 3, flat affect Labs: reviewed Assessment: 63 years old woman with small cell lung carcinoma diagnosed in 08/2016 in her right upper lobe, noncompliant with treatment and lost to follow-up, COPD, adrenal insufficiency, schizophrenia, chronic hypertension, polyarthritis, tobacco abuse, who presented to the hospital after a fall at home. Patient said that she was just standing then fell. Denied LOC. As result of the fall she hit her head and hit her arms. Shortly thereafter she developed right sided rib pain. She came to the hospital because the pain became worse. She was discharged on 04/26/19. Unsure which day she fell. SHe was very dirty , soiled on arrival. She was with hypotension to 70/40 requiring ICU admission for pressor support. This is the patient's fourth admission to the hospital in the past 2 months. She was recently discharged on 04/26/2019 with adrenal crisis with no source of infection at that time. Seems like she was in adrenal crisis due to medication non compliance. She has been evaluated by psychiatry before and has been deemed to understand her medical issues and so can make her own decisions. She has refused NH or Assisted living placement in david past. She does not have any home support system. Severe hypokalemia dn hypomagnesemia getting replacement consulted nephrology for hypokalemia fludrocortisone increased from 0.1 to 0.2 Adrenal crisis due to medication noncompliance will continue with hydrocortisone then taper it and switch back to oral prednisone 10 mg daily. continue fludrocortisone 0.1 mg daily Ok to keep MAP at 50 to 55. Dirty UA urine culture contaminated. She was very dirty and soiled on arrival will dc antibiotics. Chronic hypotension I suspect she has autonomic neuropathy from diabetes and alcohol abuse and has chronic hypotension with episodes of orthostatic hypotension on the back ground of chronic adrenal insufficiency. Even with severe hypotension the patient is not tachycardic, making good urine, no features of cerebral hypoperfusion. Will continue midodrine and fludrocortisone. OK to keep MAP at 50 to 55 without any intervention. Mild dementia she scored 22/30 in MMSE and repeat was 24/30 in the prior admission. very poor short term memory As per visiting nurses when they go to check on her she does not know any of her medications , could not tell when she last took any medications. and just opens one bottle and started taking pills one after the other and they had to snatch away the bottle from her hand patient is resistant to placement. Leucocytosis improving No obvious source of infection, lungs are clear, afebrile, lactic acid within normal limit. Her leukocytosis is most likely secondary to chronic steroid treatment. Severe hypokalemia replaced will recheck. Small cell lung cancer, right upper lobe: with right rib fractures 6th and 7th Follow-up with oncologist in the outpatient settings Diabetes mellitus becomes hypoglycemic in the AM. Prior history of multiple rib fractures: Pain management when necessary H/o Alcohol abuse and medication noncompliance Neuropathy diabetic and alcoholic recurrent falls Protein-calorie malnutrition. CAD and peripheral arterial disease on asa and plavix. COPD Schizophrenia continue current meds Prior CVA: ASA, plavix VS,Fishbone, I+O VS, Fishbone, I+O Laboratory Tests 05/01/19 15:43 05/02/19 06:53 Vital Signs Date Time Temp Pulse Resp B/P (MAP) Pulse Ox O2 Delivery O2 Flow Rate FiO2 05/02/19 10:54 70/56 (61) 05/02/19 10:00 97.9 89 20 92 Room Air 04/30/19 18:44 2.0 I&O- Last 24 Hours up to 6 AM 05/02/19 06:00 Intake Total 1640 ml Output Total 3775 ml Balance -2135 ml JESUS MUNGUIA MD May 02, 2019 13:13
[2019-05-02] MEDS: metFORMIN XR 500MG TAB *GLUCOPHAGE XR PO SCH (14:23)
--- NOTE | 2019-05-02 21:26 | CR ---
DATE OF CONSULTATION: 05/02/2019 REFERRING PHYSICIAN: Clotilde Lay MD REASON FOR CONSULTATION: Hypokalemia. HISTORY OF PRESENT ILLNESS Ms. Simmons is a 63-year-old female with frequent hospitalizations. She has a diagnosis of adrenal insufficiency and has been on replacement therapy. She was recently admitted with similar episode of hypotension and was found to be dehydrated. She was hydrated with IV fluid and then developed some electrolyte abnormalities. This time she was admitted with problems with balance and falls. She is found to be severely hypokalemic in addition to hypotension. Nephrology consultation was requested and the patient is seen today. PAST MEDICAL AND SURGICAL HISTORY Significant for 1. History of adrenal insufficiency. 2. Small-cell lung cancer at right upper lobe. 3. History of questionable COPD. 4. History of schizophrenia. 5. History of noncompliance. PERSONAL AND SOCIAL HISTORY The patient has history of alcohol use in the past and she is current tobacco user. No history of known for drug use. FAMILY HISTORY Significant for coronary artery disease in her mother. HOME MEDICATIONS: List of her home medications include atorvastatin 40 mg daily, citalopram 10 mg daily, Plavix 75 mg daily, fludrocortisone 0.1 mg daily, midodrine 5 mg 2 tablets three times a day, prednisone 10 mg daily, potassium chloride 20 mEq twice a day, and multivitamin 1 tablet daily. ALLERGIES: The patient has NO KNOWN DRUG ALLERGIES. She is not a good historian and difficult to get information from her. REVIEW OF SYSTEMS The patient reports poor balance and falls at home. She was admitted just a few weeks ago with severe hypotension and dehydration. She has history of similar episodes in the past. She denies any headache at present. Nose and throat are unremarkable. Cardiovascular system is significant for chronic hypotension and orthostatic hypotension. She denies any leg edema. Respiratory system negative for cough or hemoptysis. She has known history of small-cell lung cancer. GI system negative for vomiting or diarrhea. system is negative for dysuria or hematuria. She currently has a Mcneil catheter in place. Psychosocial system is significant for history of noncompliance and schizophrenia. PHYSICAL EXAMINATION The patient is laying in bed without any acute distress. Blood pressure is about 70/56 mmHg and oxygen saturation 92% on room air. Temperature is 97.9 degrees Fahrenheit, heart rate 88 per minute and respiratory rate 20 per minute. Head is atraumatic. Ears, nose and throat are unremarkable. Neck is supple and JVD is not abnormally elevated. Hepatojugular reflux is absent. Heart: Sounds are regular and lungs clear to auscultation. Abdomen: Soft and nontender and bowel sounds are normal. Extremities: Without any cyanosis or clubbing. Skin has no rash or ulcers. Neurologically she does not seem to have any focal neurological deficit. LABORATORY DATA On admission her chemistry showed a sodium level of 138, potassium 3.5, BUN 10 and creatinine 0.56. Glucose 186 and a lactic acid level 2.4. Calcium level 7.5 and CPK 1276. On May 01 her potassium went down to 2.2 while her sodium was 139. BUN 5 and creatinine 0.48 after hydration. Magnesium level was 1.6. This morning her sodium is 137, potassium 2.6, CO2 34, BUN 6 and creatinine 0.65. Glucose 210, calcium 8.2 and magnesium 1.6. WBC count is 13.7, hemoglobin 9.4 and hematocrit 29.0 on May 01. PROBLEMS 1. Recurrent hypokalemia most likely this is related to her adrenal problems and excessive IV fluids given and urine output. Her potassium was 3.5 on admission. I am not certain about the diagnosis of her adrenal insufficiency. However, she always presents with hypotension without any evidence of sepsis and dehydration. With hydration she has excessive urine output and then she developed hypokalemia. At present we will replace her potassium with intravenous potassium supplement in 40 mEq in 1 liter of normal saline and run at about 100 mL per hour. She will also get oral potassium supplement with 40 mEq three times a day. Electrolytes should be checked again tomorrow morning. 2. Hypomagnesemia. This is mild and she is already receiving a run of magnesium sulfate intravenously. Her magnesium level should also be checked again tomorrow morning. 3. Recurrent dehydration and hypotension probably a result of her adrenal insufficiency. We will increase her fludrocortisone dose to 0.2 mg and see how she does. 4. Recurrent dehydration. The patient has similar episodes and has been admitted multiple times. I feel that she is not able to take care of herself at home. She is probably suitable for supervised living or replacement in a [facility]. We will hydrate her aggressively and see how she does after replenishing her fluids and electrolytes. Thank you for involving me in the care of Ms. Simmons. I will follow her along with you.
[2019-05-03] VITALS (8 sets, daily range): BP systolic 87–156; BP diastolic 55–78
[2019-05-03] MEDS: HYDROCORTISONE 100 MG/2 ML VIAL (J1720) IV SCH (06:19)
[2019-05-03 06:46] LABS: HEMATOCRIT 32.5 % (36.0-47.0); HEMOGLOBIN 10.6 g/dl (12.0-15.5); MEAN CORPUSCULAR HEMOGLOBIN 32.8 pg (27.0-33.0); MEAN CORPUSCULAR HGB CONC 32.6 g/dl (32.0-36.5); MEAN CORPUSCULAR VOLUME 100.6 fl (80.0-96.0); PLATELET COUNT, AUTOMATED 265 10^3/uL (150-450); RED BLOOD COUNT 3.23 10^6/uL (4.00-5.40); WHITE BLOOD COUNT 19.9 10^3/uL (4.0-10.0)
[2019-05-03 07:14] LABS: BLOOD UREA NITROGEN 8 MG/DL (7-18); CALCIUM LEVEL 8.1 MG/DL (8.8-10.2); CARBON DIOXIDE LEVEL 29 MEQ/L (21-32); CHLORIDE LEVEL 101 MEQ/L (98-107); CREATININE FOR GFR 0.44 MG/DL (0.55-1.30); GLOMERULAR FILTRATION RATE > 60.0 (>45); GLUCOSE, FASTING 106 MG/DL (70-100); POTASSIUM SERUM 4.3 MEQ/L (3.5-5.1); SODIUM LEVEL 136 MEQ/L (136-145)
[2019-05-03] MEDS: KCL 40MEQ in NS 1000ML 1,000 ML IV SCH ×2 (08:03→19:34)
[2019-05-03] MEDS: SODIUM CHLORIDE 0.9% INJ 10 ML SYR IV SCH (09:00)
[2019-05-03] MEDS: metFORMIN XR 500MG TAB *GLUCOPHAGE XR PO SCH (09:01)
[2019-05-03] MEDS: CLOPIDOGREL 75 MG TAB PO SCH (09:01)
[2019-05-03] MEDS: FLUDROCORTISONE ACETATE 0.1 MG TAB PO SCH (09:02)
[2019-05-03] MEDS: MIDODRINE 5 MG TAB PO SCH ×3 (09:02→16:25)
[2019-05-03] MEDS: CitaloPRAM (CeleXA) 10 MG TABLET PO SCH (09:02)
[2019-05-03] MEDS: MAGNESIUM OXIDE 400 MG TAB (MAG-OX) PO SCH ×2 (09:02→22:31)
[2019-05-03] MEDS: POTASSIUM CHLORIDE 10 MEQ SR TABLET PO SCH (09:02)
[2019-05-03] MEDS: ENOXAPARIN 40 MG/0.4 ML SYRINGE (J1650) SC SCH (09:03)
[2019-05-03] MEDS: VITAMIN A & D OINTMENT 60 GM TOP SCH ×4 (09:04→22:32)
--- NOTE | 2019-05-03 13:30 | IPNPDOC ---
Text Note Date of Service The patient was seen on 05/03/19. NOTE SUBJECTIVE: Says she is OK. Had a heavy breakfast. As per nurses she fishes all her meals. Says she fell at home and got up by herself. does not remember who called the ambulance. Her daughter thinks that she may have pressed her life alert. Vitals: see below. General Exam: Alert,oriented x 3, frail and looks older than her age. hair matted and poorly groomed. Eye Exam: PERRLA, pale conjunctiva ENT Exam: MMM Neck Exam: Supple, no JVD Chest Exam: CTAB, no crackles, scattered ronchi. Heart Exam: RRR, no noted murmurs, rubs or gallops Abdomen Exam: Normal bowel sounds, soft, NTND, no hepatosplenomegaly Extremity Exam: WWP, no edema Skin Exam: Normal temperature Neuro Exam: Strength at 5/5 X4 ext, Cranial Nerves 3-12 WNL Psych Exam: Oriented x 3, flat affect Labs: reviewed Assessment: 63 years old woman with small cell lung carcinoma diagnosed in 08/2016 in her right upper lobe, noncompliant with treatment and lost to follow-up, COPD, adrenal insufficiency, schizophrenia, chronic hypertension, polyarthritis, tobacco abuse, who presented to the hospital after a fall at home. Patient said that she was just standing then fell. Denied LOC. As result of the fall she hit her head and hit her arms. Shortly thereafter she developed right sided rib pain. She came to the hospital because the pain became worse. She was discharged on 04/26/19. Unsure which day she fell. She was very dirty , soiled on arrival. She was with hypotension to 70/40 requiring ICU admission for pressor support. This is the patient's fourth admission to the hospital in the past 2 months. She was recently discharged on 04/26/2019 with adrenal crisis with no source of infection at that time. Seems like she was in adrenal crisis due to medication non compliance. She has been evaluated by psychiatry before and has been deemed to understand her medical issues and so can make her own decisions. She has refused NH or Assisted living placement in the past. She does not have any home support system. Severe hypokalemia and hypomagnesemia corrected nephrology consult appreciated. fludrocortisone increased from 0.1 to 0.2 Adrenal crisis due to medication noncompliance will continue with hydrocortisone then taper it and switch back to oral prednisone 10 mg daily. continue fludrocortisone 0.2 mg daily Ok to keep MAP at 50 to 55. Dirty UA urine culture contaminated. She was very dirty and soiled on arrival Chronic hypotension I suspect she has autonomic neuropathy from diabetes and alcohol abuse and has chronic hypotension with episodes of orthostatic hypotension on the back ground of chronic adrenal insufficiency. Even with severe hypotension the patient is not tachycardic, making good urine, no features of cerebral hypoperfusion. Will continue midodrine and fludrocortisone. OK to keep MAP at 50 to 55 without any intervention. Mild dementia she scored 22/30 in MMSE and repeat was 24/30 in the prior admission. very poor short term memory As per visiting nurses when they go to check on her she does not know any of her medications , could not tell when she last took any medications. and just opens one bottle and started taking pills one after the other and they had to snatch away the bottle from her hand patient is resistant to placement. Leucocytosis improving No obvious source of infection, lungs are clear, afebrile, lactic acid within normal limit. Her leukocytosis is most likely secondary to chronic steroid treatment. Severe hypokalemia replaced will recheck. Small cell lung cancer, right upper lobe: with right rib fractures 6th and 7th Follow-up with oncologist in the outpatient settings Diabetes mellitus becomes hypoglycemic in the AM. Prior history of multiple rib fractures: Pain management when necessary H/o Alcohol abuse and medication noncompliance Neuropathy diabetic and alcoholic recurrent falls Protein-calorie malnutrition. CAD and peripheral arterial disease on asa and plavix. COPD Schizophrenia continue current meds Prior CVA: ASA, plavix VS,Fishbone, I+O VS, Fishbone, I+O Laboratory Tests 05/03/19 05:51 Vital Signs Date Time Temp Pulse Resp B/P (MAP) Pulse Ox O2 Delivery O2 Flow Rate FiO2 05/03/19 10:00 98.3 70 18 97/60 (72) 98 05/02/19 18:00 Room Air 04/30/19 18:44 2.0 I&O- Last 24 Hours up to 6 AM0 05/03/19 06:00 Intake Total 2570 ml Output Total 4200 ml Balance -1630 ml JESUS MUNGUIA MD May 03, 2019 13:30
--- NOTE | 2019-05-03 17:06 | IPN ---
DATE: 05/03/2019 Ms. Simmons is seen this morning on her bedside. She is laying in the bed as usual and denies any complaints at present. She has no nausea, vomiting, dyspnea, chest pain or leg edema. She reports that she has been eating well. She is still getting IV fluid due to hypotension and dehydration. PHYSICAL EXAMINATION: Temperature 98.3 degrees Fahrenheit, heart rate 70 per minute and respiratory rate 18 per minute. Blood pressure 97/60 mmHg and oxygen saturation 98% on room air. Intake and output records from yesterday show a total intake 1910 and output 2800. Today, her intake is 1150 so far and output recorded as 2600. She has been in negative fluid balance for the last two days, while she was in positive fluid balance for the first day at 4.8 liters. Her head is atraumatic. Neck is supple and without jugular venous distention (JVD) or thyroid enlargement. Heart sounds are regular. Lungs sound clear to auscultation. Abdomen is soft and nontender and bowel sounds are normal. Extremities without any cyanosis or clubbing. LABORATORY DATA: Today's laboratories show WBC count 19.9, hemoglobin 10.6 and hematocrit 32.5. Sodium 136, potassium 4.3, BUN 8 and creatinine 0.44. Glucose 106 and calcium 8.1. PROBLEMS: 1. Severe hypokalemia. This has corrected with aggressive potassium supplement and IV fluid hydration. I am going to stop her oral potassium supplement for now as I would like to keep the IV fluid running, as the patient has been in negative fluid balance and likely to get dehydrated again after stopping IV fluid. We should recheck her electrolytes again tomorrow morning. 2. Recurrent dehydration. This is related to her adrenal insufficiency and inability to keep up with her fluid losses at home. Her fludrocortisone dose was increased to 0.2 mg daily and she will also continue with prednisone. At present, she is receiving hydrocortisone and I would suggest to switch her back to her usual dose of prednisone 10 mg daily. 3. Hypotension. Blood pressure control has also improved with IV fluid hydration and she continues with midodrine 10 mg three times a day.
[2019-05-03] MEDS ORDERED: HYDROCORTISONE 100 MG/2 ML VIAL (J1720) IV SCH (18:00)
[2019-05-04] VITALS (7 sets, daily range): BP systolic 76–119; BP diastolic 56–81
[2019-05-04] MEDS: FLUDROCORTISONE ACETATE 0.1 MG TAB PO SCH (08:49)
[2019-05-04] MEDS: metFORMIN XR 500MG TAB *GLUCOPHAGE XR PO SCH (08:49)
[2019-05-04] MEDS: ENOXAPARIN 40 MG/0.4 ML SYRINGE (J1650) SC SCH (08:49)
[2019-05-04] MEDS: CLOPIDOGREL 75 MG TAB PO SCH (08:49)
[2019-05-04] MEDS: SODIUM CHLORIDE 0.9% INJ 10 ML SYR IV SCH (08:50)
[2019-05-04] MEDS: MAGNESIUM OXIDE 400 MG TAB (MAG-OX) PO SCH ×2 (08:50→23:06)
[2019-05-04] MEDS: VITAMIN A & D OINTMENT 60 GM TOP SCH ×4 (08:50→23:06)
[2019-05-04] MEDS: MIDODRINE 5 MG TAB PO SCH ×3 (08:50→15:42)
[2019-05-04] MEDS: CitaloPRAM (CeleXA) 10 MG TABLET PO SCH (08:50)
[2019-05-04] MEDS ORDERED: predniSONE 10 MG TAB PO SCH (09:00)
[2019-05-04 09:02] LABS: HEMOGLOBIN 11.9 g/dl (12.0-15.5); MEAN CORPUSCULAR HEMOGLOBIN 32.4 pg (27.0-33.0); MEAN CORPUSCULAR HGB CONC 33.1 g/dl (32.0-36.5); MEAN CORPUSCULAR VOLUME 98.1 fl (80.0-96.0); PLATELET COUNT, AUTOMATED 316 10^3/uL (150-450); RED BLOOD COUNT 3.67 10^6/uL (4.00-5.40)
[2019-05-04 09:05] LABS: WHITE BLOOD COUNT 19.7 10^3/uL (4.0-10.0)
[2019-05-04 09:28] LABS: ALBUMIN 3.2 GM/DL (3.2-5.2); BLOOD UREA NITROGEN 9 MG/DL (7-18); CALCIUM LEVEL 8.6 MG/DL (8.8-10.2); CARBON DIOXIDE LEVEL 31 MEQ/L (21-32); CHLORIDE LEVEL 100 MEQ/L (98-107); CREATININE FOR GFR 0.41 MG/DL (0.55-1.30); GLOMERULAR FILTRATION RATE > 60.0 (>45); GLUCOSE, FASTING 67 MG/DL (70-100); PHOSPHORUS LEVEL 3.3 MG/DL (2.5-4.9); POTASSIUM SERUM 3.9 MEQ/L (3.5-5.1); SODIUM LEVEL 137 MEQ/L (136-145)
[2019-05-04 09:45] LABS: ATYPICAL LYMPH 4 % (0-5); LYMPHOCYTES 22 % (16-44); METAMYELOCYTES 1 % (0-0); MONOCYTES 7 % (0-5); MYELOCYTES 1 % (0-0); NEUTROPHILS 63 % (28-66)
[2019-05-04 09:46] LABS: ANISOCYTOSIS 1+; PLATELET ESTIMATE NORMAL (NORMAL); POLYCHROMASIA 1+
[2019-05-04] MEDS: POTASSIUM CHLORIDE 10 MEQ SR TABLET PO SCH ×3 (11:07→23:06)
--- NOTE | 2019-05-04 11:46 | IPNPDOC ---
Text Note Date of Service The patient was seen on 05/04/19. NOTE SUBJECTIVE: Says she is OK. As per nurses she finishes all her meals. Sugars this am was in 80s. will have to watch for hypoglycemia as did have episodes in last hospitalization. Says she is able to walk. Walks with broad based gait. Says she fell at home and got up by herself. does not remember who called the ambulance. Her daughter thinks that she may have pressed her life alert. Vitals: see below. General Exam: Alert,oriented x 3, frail and looks older than her age. hair matted and poorly groomed. Eye Exam: PERRLA, pale conjunctiva ENT Exam: MMM Neck Exam: Supple, no JVD Chest Exam: CTAB, no crackles, scattered ronchi. Heart Exam: RRR, no noted murmurs, rubs or gallops Abdomen Exam: Normal bowel sounds, soft, NTND, no hepatosplenomegaly Extremity Exam: WWP, no edema Skin Exam: Normal temperature Neuro Exam: Strength at 5/5 X4 ext, Cranial Nerves 3-12 WNL Psych Exam: Oriented x 3, flat affect Labs: reviewed Assessment: 63 years old woman with small cell lung carcinoma diagnosed in 08/2016 in her right upper lobe, noncompliant with treatment and lost to follow-up, COPD, adrenal insufficiency, schizophrenia, chronic hypertension, polyarthritis, tob acco abuse, who presented to the hospital after a fall at home. Patient said that she was just standing then fell. Denied LOC. As result of the fall she hit her head and hit her arms. Shortly thereafter she developed right sided rib pain. She came to the hospital because the pain became worse. She was discharged on 04/26/19. Unsure which day she fell. She was very dirty , soiled on arrival. She was with hypotension to 70/40 requiring ICU admission for pressor support. This is the patient's fourth admission to the hospital in the past 2 months. She was recently discharged on 04/26/2019 with adrenal crisis with no source of infection at that time. Seems like she was in adrenal crisis due to medication non compliance. She has been evaluated by psychiatry before and has been deemed to understand her medical issues and so can make her own decisions. She has refused NH or Assisted living placement in the past. She does not have any home support system. Severe hypokalemia and hypomagnesemia corrected nephrology consult appreciated. fludrocortisone increased from 0.1 to 0.2 Adrenal crisis due to medication noncompliance back to oral prednisone 10 mg daily. continue fludrocortisone 0.2 mg daily Ok to keep MAP at 50 to 55. Dirty UA urine culture contaminated. She was very dirty and soiled on arrival Chronic hypotension I suspect she has autonomic neuropathy from diabetes and alcohol abuse and has chronic hypotension with episodes of orthostatic hypotension on the back ground of chronic adrenal insufficiency. Even with severe hypotension the patient is not tachycardic, making good urine, no features of cerebral hypoperfusion. Will continue midodrine and fludrocortisone. OK to keep MAP at 50 to 55 without any intervention. Mild dementia she scored 22/30 in MMSE and repeat was 24/30 in the prior admission. very poor short term memory As per visiting nurses when they go to check on her she does not know any of her medications , could not tell when she last took any medications. and just opens one bottle and started taking pills one after the other and they had to snatch away the bottle from her hand patient is resistant to placement. Has been seen by Psych Last admission and has been deemed to have mental capacity. Leucocytosis steroid related. No obvious source of infection, lungs are clear, afebrile Small cell lung cancer, right upper lobe: with right rib fractures 6th and 7th Follow-up with oncologist in the outpatient settings Diabetes mellitus becomes hypoglycemic in the AM. continue metformin daily. Prior history of multiple rib fractures: Pain management when necessary H/o Alcohol abuse and medication noncompliance Neuropathy diabetic and alcoholic recurrent falls Protein-calorie malnutrition. CAD and peripheral arterial disease on asa and plavix. COPD Schizophrenia continue current meds Prior CVA: ASA, plavix VS,Fishbone, I+O VS, Fishbone, I+O Laboratory Tests 05/04/19 08:13 Vital Signs Date Time Temp Pulse Resp B/P (MAP) Pulse Ox O2 Delivery O2 Flow Rate FiO2 05/04/19 08:44 104 116/81 (93) 05/04/19 06:00 98.0 18 94 05/03/19 18:00 Room Air 04/30/19 18:44 2.0 I&O- Last 24 Hours up to 6 AM 05/04/19 06:00 Intake Total 3145 ml Output Total 2500 ml Balance 645 ml JESUS MUNGUIA MD May 04, 2019 11:46
[2019-05-05 02:00] VITALS: BP 80/60
[2019-05-05 06:00] VITALS: BP 82/64
[2019-05-05 06:27] LABS: HEMATOCRIT 35.5 % (36.0-47.0); HEMOGLOBIN 11.4 g/dl (12.0-15.5); MEAN CORPUSCULAR HEMOGLOBIN 32.5 pg (27.0-33.0); MEAN CORPUSCULAR HGB CONC 32.1 g/dl (32.0-36.5); MEAN CORPUSCULAR VOLUME 101.1 fl (80.0-96.0); PLATELET COUNT, AUTOMATED 309 10^3/uL (150-450); RED BLOOD COUNT 3.51 10^6/uL (4.00-5.40)
[2019-05-05 06:32] LABS: WHITE BLOOD COUNT 18.1 10^3/uL (4.0-10.0)
[2019-05-05 06:52] LABS: BLOOD UREA NITROGEN 18 MG/DL (7-18); CALCIUM LEVEL 8.1 MG/DL (8.8-10.2); CARBON DIOXIDE LEVEL 31 MEQ/L (21-32); CHLORIDE LEVEL 102 MEQ/L (98-107); CREATININE FOR GFR 0.55 MG/DL (0.55-1.30); GLOMERULAR FILTRATION RATE > 60.0 (>45); GLUCOSE, FASTING 82 MG/DL (70-100); POTASSIUM SERUM 4.1 MEQ/L (3.5-5.1); SODIUM LEVEL 137 MEQ/L (136-145)
[2019-05-05 07:11] LABS: LYMPHOCYTES 37 % (16-44); METAMYELOCYTES 2 % (0-0); MONOCYTES 3 % (0-5); MYELOCYTES 1 % (0-0); NEUTROPHILS 57 % (28-66)
[2019-05-05 07:12] LABS: PLATELET ESTIMATE NORMAL (NORMAL)
--- NOTE | 2019-05-05 08:03 | IPN ---
DATE: 05/04/2019 Ms. Simmons is seen this morning on her bedside. She is eating her breakfast and denies any complaints. She has no fever, chills, nausea or vomiting. She remains on IV fluids and other medications and blood pressure has improved. Her urine output remains almost as much as her intake is now. PHYSICAL EXAMINATION: Temperature 98 degrees Fahrenheit, heart rate 100 per minute and respiratory rate 18 per minute. Blood pressure 109/75 mmHg and oxygen saturation 94%. Her head is atraumatic. Neck is supple and without jugular venous distention (JVD) or thyroid enlargement. Heart sounds are somewhat tachycardiac. Lungs are clear to auscultation. Abdomen is soft and nontender. Bowel sounds normal. Extremities without any cyanosis or clubbing. Neurologically, she is awake, alert and at her baseline mentation. Today's labs show WBC count 19.7, hemoglobin 11.9 and hematocrit 36.0. Sodium 137, potassium 3.9, chloride 100, CO2 of 31, BUN 9 and creatinine 0.41. Calcium 8.6 and glucose was 67. PROBLEMS: 1. Hypokalemia. Her potassium level remains within normal range. Yesterday, we had stopped her oral potassium supplement due to risk for hyperkalemia. She is still receiving IV fluid and I am going to stop her IV fluid now and resume her oral potassium with 20 mEq three times a day. 2. Hypotension. Most likely related to adrenal insufficiency. It has improved with IV fluid hydration and increased dose of fludrocortisone. I would recommend to continue with 0.2 mcg of fludrocortisone daily. Her prednisone dose should be back to her preadmission dose of 10 mg daily and other steroids should be stopped. DISPOSITION: The patient is declining a snf placement. She has been frequently admitted with similar problems of dehydration and gets severe hypokalemia with hydration. I fear significant noncompliance at home with her medications. I would recommend to get public health nurse involved to improve compliance of medications. She can probably be discharged after monitoring for 24 hours.
[2019-05-05 10:00] VITALS: BP 73/48
[2019-05-05] MEDS: MIDODRINE 5 MG TAB PO SCH ×3 (10:09→17:34)
[2019-05-05] MEDS: VITAMIN A & D OINTMENT 60 GM TOP SCH ×4 (10:09→20:18)
[2019-05-05] MEDS: CLOPIDOGREL 75 MG TAB PO SCH (10:10)
[2019-05-05] MEDS: metFORMIN XR 500MG TAB *GLUCOPHAGE XR PO SCH (10:10)
[2019-05-05] MEDS: CitaloPRAM (CeleXA) 10 MG TABLET PO SCH (10:10)
[2019-05-05] MEDS: HYDROCORTISONE 5MG TABLET PO SCH ×2 (10:10→20:17)
[2019-05-05] MEDS: SODIUM CHLORIDE 0.9% INJ 10 ML SYR IV SCH (10:11)
[2019-05-05] MEDS: MAGNESIUM OXIDE 400 MG TAB (MAG-OX) PO SCH ×2 (10:11→20:17)
[2019-05-05] MEDS: ENOXAPARIN 40 MG/0.4 ML SYRINGE (J1650) SC SCH (10:11)
--- NOTE | 2019-05-05 11:36 | IPNPDOC ---
Text Note Date of Service The patient was seen on 05/05/19. NOTE SUBJECTIVE: Says she is OK. Having some cough but says that is chronic, denies any SOB. Wants to go home. Was hypoglycemia this am. Vitals: see below. General Exam: Alert,oriented x 3, frail and looks older than her age. hair matted and poorly groomed. Eye Exam: PERRLA, pale conjunctiva ENT Exam: MMM, bitemporal wasting. Neck Exam: Supple, no JVD Chest Exam: CTAB, no crackles, scattered ronchi. Heart Exam: RRR, no noted murmurs, rubs or gallops Abdomen Exam: Normal bowel sounds, soft, NTND, no hepatosplenomegaly Extremity Exam: WWP, no edema Skin Exam: Normal temperature Neuro Exam: Strength at 5/5 X4 ext, Cranial Nerves 3-12 WNL Psych Exam: Oriented x 3, flat affect Labs: reviewed Assessment: 63 years old woman with small cell lung carcinoma diagnosed in 08/2016 in her right upper lobe, noncompliant with treatment and lost to follow-up, COPD, adrenal insufficiency, schizophrenia, chronic hypertension, polyarthritis, tobacco abuse, who presented to the hospital after a fall at home. Patient said that she was just standing then fell. Denied LOC. As result of the fall she hit her head and hit her arms. Shortly thereafter she developed right sided rib pain. She came to the hospital because the pain became worse. She was discharged on 04/26/19. Unsure which day she fell. She was very dirty , soiled on arrival. She was with hypotension to 70/40 requiring ICU admission for pressor support. This is the patient's fourth admission to the hospital in the past 2 months. She was recently discharged on 04/26/2019 with adrenal crisis with no source of infection at that time. Seems like she was in adrenal crisis due to medication non compliance. She has been evaluated by psychiatry before and has been deemed to understand her medical issues and so can make her own decisions. She has refused NH or Assisted living placement in the past. She does not have any home support system. Severe hypokalemia and hypomagnesemia corrected nephrology consult appreciated. fludrocortisone and prednisone stopped and patient started on hydrocortisone continue magnesium Adrenal crisis due to medication noncompliance patient put on hydrocortisone now instead of fludrocortisone and prednisone to avoid recurrent hypokalemia. Ok to keep MAP at 50 to 55. Dirty UA urine culture contaminated. She was very dirty and soiled on arrival Chronic hypotension I suspect she has autonomic neuropathy from diabetes and alcohol abuse and has chronic hypotension with episodes of orthostatic hypotension on the back ground of chronic adrenal insufficiency. Even with severe hypotension the patient is not tachycardic, making good urine, no features of cerebral hypoperfusion or other organ hypoperfusion. Will continue midodrine OK to keep MAP at 50 to 55 without any intervention. Mild dementia she scored 22/30 in MMSE and repeat was 24/30 in the prior admission. very poor short term memory As per visiting nurses when they go to check on her she does not know any of her medications , could not tell when she last took any medications. and just opens one bottle and started taking pills one after the other and they had to snatch away the bottle from her hand patient is resistant to placement. Has been seen by Psych Last admission and has been deemed to have mental capacity. Leucocytosis steroid related. No obvious source of infection, lungs are clear, afebrile Small cell lung cancer, right upper lobe: with right rib fractures 6th and 7th Follow-up with oncologist in the outpatient settings Diabetes mellitus becomes hypoglycemic in the AM. dc metformin. Prior history of multiple rib fractures: Pain management when necessary H/o Alcohol abuse and medication noncompliance Neuropathy diabetic and alcoholic recurrent falls Protein-calorie malnutrition. mild CAD and peripheral arterial disease on asa and plavix. COPD no issues at present. Schizophrenia only on celexa. Dosage reduced this may be contributing ot her medication noncompliance. Prior CVA: ASA, plavix VS,Fishbone, I+O VS, Fishbone, I+O Laboratory Tests 05/05/19 06:12 Vital Signs Date Time Temp Pulse Resp B/P (MAP) Pulse Ox O2 Delivery O2 Flow Rate FiO2 05/05/19 10:00 98.8 69 17 73/48 (56) 90 Room Air 04/30/19 18:44 2.0 I&O- Last 24 Hours up to 6 AM 05/05/19 05:59 Intake Total 1991 ml Output Total 3150 ml Balance -1159 ml JESUS MUNGUIA MD May 05, 2019 11:36
--- NOTE | 2019-05-05 12:08 | IPN ---
DATE: 05/05/2019 SUBJECTIVE: The patient is seen this morning laying in her bed. The patient says that she has eaten breakfast and does not have any acute complaints at this time. The patient no longer is on IV fluids and has been taking her medications at home. The patient's blood pressure is slightly lower today than it has been but the patient does not have any acute complaints today. PHYSICAL EXAMINATION: VITAL SIGNS: Temperature 98.6 degrees Fahrenheit, pulse 93, respiratory rate 16, blood pressure 82/64 with a mean arterial pressure of 70, pulse oximetry 95% on room air. GENERAL: The patient is an alert and oriented female who is laying flat in bed when walked in. The patient gave mostly one word answers to questions but did not appear to be in any acute distress. HEENT: Normocephalic, atraumatic with anicteric sclerae. NECK: Supple without jugular venous distention (JVD). CARDIOVASCULAR: Regular rate and rhythm with no murmur auscultated. LUNGS: Clear to auscultation bilaterally. ABDOMEN: Soft, nontender with normoactive bowel sounds. EXTREMITIES: No edema bilaterally. LABORATORIES: White blood cell count was 18.1, hemoglobin 11.4, hematocrit 37.5, platelet count 309. Sodium 137, potassium 4.1, chloride 102, carbon dioxide 31, BUN 18, creatinine 0.55, glucose 82, calcium 8.1. ASSESSMENT AND PLAN: 1. Adrenal insufficiency. The patient had been on prednisone and fludrocortisone outpatient. This has been changed today to hydrocortisone 10 mg in the morning and 5 mg in the afternoon. Fludrocortisone has been discontinued. Vital signs for instability. If the patient is not able to tolerate hydrocortisone then fludrocortisone can be readded. 2. Hypokalemia. The patient's potassium level has stabilized at currently 4.1 this morning. The patient's oral potassium has been discontinued as the patient's fludrocortisone has been discontinued and as long as the patient maintains an adequate diet and continues to take her medications, both inpatient and outpatient then the patient's potassium level should remain normal. I believe that the patient is noncompliant with her medications outpatient. 3. Hypotension. This is most likely related to adrenal insufficiency. The patient's IV fluid hydration has been discontinued for 24 hours. The patient's blood pressure has decreased slightly from the baseline that it had been in the hospital of a systolic around 100 to 110. We will keep a close eye on her blood pressure and add fludrocortisone and fluids if we need to. DISPOSITION: The patient is declining group home placement. The patient has been admitted frequently for similar things. I believe the patient is noncompliant at home with medications. Public health nurse involvement may be beneficial for this patient. The patient is going to need at least another 24 hours of monitoring after changes in medications have been made. Nephrology Attending Note: Pt was seen and examined with the resident and I agree with the plan with following additions or amendments. Assessment: Adrenal insufficiency Chronic Hypotension Hypokalemia Non Compliance with medications as outpatient Plan: Switch to Hydrocortisone 10 mg AM and 5 mg PM Monitor off Kcl supplement. Stop Florinef cont Midodrine tid. Pt with recurrent admission with adrenal crisis. She needs to be discharged to [place]. MTDD
[2019-05-05 14:00] VITALS: BP 101/62
[2019-05-05 18:00] VITALS: BP 85/61
[2019-05-05 22:00] VITALS: BP 72/56
[2019-05-06 06:00] VITALS: BP 72/58
[2019-05-06 06:41] LABS: HEMATOCRIT 35.4 % (36.0-47.0); HEMOGLOBIN 11.4 g/dl (12.0-15.5); MEAN CORPUSCULAR HEMOGLOBIN 32.5 pg (27.0-33.0); MEAN CORPUSCULAR HGB CONC 32.2 g/dl (32.0-36.5); MEAN CORPUSCULAR VOLUME 100.9 fl (80.0-96.0); PLATELET COUNT, AUTOMATED 323 10^3/uL (150-450); RED BLOOD COUNT 3.51 10^6/uL (4.00-5.40); WHITE BLOOD COUNT 19.9 10^3/uL (4.0-10.0)
[2019-05-06 07:00] LABS: BLOOD UREA NITROGEN 13 MG/DL (7-18); CALCIUM LEVEL 8.8 MG/DL (8.8-10.2); CARBON DIOXIDE LEVEL 32 MEQ/L (21-32); CHLORIDE LEVEL 97 MEQ/L (98-107); CREATININE FOR GFR 0.55 MG/DL (0.55-1.30); GLOMERULAR FILTRATION RATE > 60.0 (>45); GLUCOSE, FASTING 87 MG/DL (70-100); POTASSIUM SERUM 3.9 MEQ/L (3.5-5.1); SODIUM LEVEL 136 MEQ/L (136-145)
[2019-05-06 07:30] LABS: BASOPHILS 3 % (0-1); LYMPHOCYTES 21 % (16-44); MONOCYTES 8 % (0-5); NEUTROPHILS 66 % (28-66); PLATELET ESTIMATE NORMAL (NORMAL)
[2019-05-06] MEDS: SODIUM CHLORIDE 0.9% INJ 10 ML SYR IV SCH (08:04)
[2019-05-06] MEDS: CitaloPRAM (CeleXA) 10 MG TABLET PO SCH (08:05)
[2019-05-06] MEDS: MIDODRINE 5 MG TAB PO SCH ×3 (08:05→16:24)
[2019-05-06] MEDS: MAGNESIUM OXIDE 400 MG TAB (MAG-OX) PO SCH ×2 (08:06→21:29)
[2019-05-06] MEDS: CLOPIDOGREL 75 MG TAB PO SCH (08:06)
[2019-05-06] MEDS: HYDROCORTISONE 5MG TABLET PO SCH ×2 (08:06→21:29)
[2019-05-06] MEDS: ENOXAPARIN 40 MG/0.4 ML SYRINGE (J1650) SC SCH (08:06)
[2019-05-06] MEDS: VITAMIN A & D OINTMENT 60 GM TOP SCH ×4 (08:07→21:29)
[2019-05-06] MEDS ORDERED: PILL CUTTER 1 EACH XX PRN (08:15)
--- NOTE | 2019-05-06 09:13 | IPNPDOC ---
Text Note Date of Service The patient was seen on 05/06/19. NOTE SUBJECTIVE: Says she is OK. Having some cough but says that is chronic, denies any SOB. Wants to go home on Tuesday. No hypoglycemia but sugars mostly 80s to 140s. Vitals: see below. General Exam: Alert,oriented x 3, frail and looks older than her age. hair matted and poorly groomed. Eye Exam: PERRLA, pale conjunctiva ENT Exam: MMM, bitemporal wasting. Neck Exam: Supple, no JVD Chest Exam: CTAB, some bibasal crackles. crackles, scattered ronchi. Heart Exam: RRR, no noted murmurs, rubs or gallops Abdomen Exam: Normal bowel sounds, soft, NTND, no hepatosplenomegaly Extremity Exam: WWP, no edema Skin Exam: Normal temperature Neuro Exam: Strength at 5/5 X4 ext, Cranial Nerves 3-12 WNL Psych Exam: Oriented x 3, flat affect Labs: reviewed Assessment: 63 years old woman with small cell lung carcinoma diagnosed in 08/2016 in her right upper lobe, noncompliant with treatment and lost to follow-up, COPD, adrenal insufficiency, schizophrenia, chronic hypertension, polyarthritis, tobacco abuse, who presented to the hospital after a fall at home. Patient said that she was just standing then fell. Denied LOC. As result of the fall she hit her head and hit her arms. Shortly thereafter she developed right sided rib pain. She came to the hospital because the pain became worse. She was discharged on 04/26/19. Unsure which day she fell. She was very dirty , soiled on arrival. She was with hypotension to 70/40 requiring ICU admission for pressor support. This is the patient's fourth admission to the hospital in the past 2 months. She was recently discharged on 04/26/2019 with adrenal crisis with no source of infection at that time. Seems like she was in adrenal crisis due to medication non compliance. She has been evaluated by psychiatry before and has been deemed to understand her medical issues and so can make her own decisions. She has refused NH or Assisted living placement in the past. She does not have any home support system. Severe hypokalemia and hypomagnesemia corrected nephrology consult appreciated. on hydrocortisone 10 and 5 Adrenal crisis due to medication noncompliance patient put on hydrocortisone now instead of fludrocortisone and prednisone to avoid recurrent hypokalemia. Ok to keep MAP at 50 to 55. Dirty UA urine culture contaminated. She was very dirty and soiled on arrival Chronic hypotension I suspect she has autonomic neuropathy from diabetes and alcohol abuse and has chronic hypotension with episodes of orthostatic hypotension on the back ground of chronic adrenal insufficiency. Even with severe hypotension the patient is not tachycardic, making good urine, no features of cerebral hypoperfusion or other organ hypoperfusion. Will continue midodrine OK to keep MAP at 50 to 55 without any intervention. Mild dementia she scored 22/30 in MMSE and repeat was 24/30 in the prior admission. very poor short term memory As per visiting nurses when they go to check on her she does not know any of her medications , could not tell when she last took any medications. and just opens one bottle and started taking pills one after the other and they had to snatch away the bottle from her hand patient is resistant to placement. Has been seen by Psych Last admission and has been deemed to have mental capacity. Leucocytosis steroid related. No obvious source of infection, afebrile Small cell lung cancer, right upper lobe: with right rib fractures 6th and 7th Follow-up with oncologist in the outpatient settings Diabetes mellitus becomes hypoglycemic in the AM. dc metformin. she does get hyperglycemic when on iv steroids and when getting iv mag which comes in dextrose. Prior history of multiple rib fractures: Pain management when necessary H/o Alcohol abuse and medication noncompliance Neuropathy diabetic and alcoholic recurrent falls Protein-calorie malnutrition. mild CAD and peripheral arterial disease on asa and plavix. COPD no issues at present. Schizophrenia only on celexa. Dosage reduced this may be contributing ot her medication noncompliance. Prior CVA: ASA, plavix VS,Fishbone, I+O VS, Fishbone, I+O Laboratory Tests 05/06/19 06:12 Vital Signs Date Time Temp Pulse Resp B/P (MAP) Pulse Ox O2 Delivery O2 Flow Rate FiO2 05/06/19 06:00 98.5 91 17 72/58 (63) 94 Room Air 04/30/19 18:44 2.0 I&O- Last 24 Hours up to 6 AM 05/06/19 06:00 Intake Total 1780 ml Output Total 1050 ml Balance 730 ml JESUS MUNGUIA MD May 06, 2019 09:13
[2019-05-06 10:52] LABS: HEMOGLOBIN A1c 5.7 %
[2019-05-06 14:00] VITALS: BP 94/62
--- NOTE | 2019-05-06 19:35 | IPN ---
DATE: 05/06/2019 SUBJECTIVE: The patient was seen and examined at the bedside today morning. She is afebrile, hemodynamically stable. Her blood pressures are soft. However, she is asymptomatic. She continues to be on midodrine. She was started on hydrocortisone yesterday. Electrolytes are within the acceptable range. Her renal function is stable and glucose levels are optimal. OBJECTIVE: Vital signs: Temperature is 98.5 degrees Fahrenheit, blood pressure 72/58 with a MAP of 63, pulse is 91, respiratory of 17, saturating 94% on room air. Intake and output: Urine output recorded as 850 mL so far today since overnight. Weight in the bed scale is not available. PHYSICAL EXAMINATION: General: The patient is awake, alert, oriented times 2, laying in bed in no apparent distress. Head and neck exam: Extraocular muscles intact. Pupils equally round and reactive to light. Mucous membranes are moist. Neck is supple. There is no JVD. Cardiovascular: S1, S2, regular rate. No edema of the bilateral lower extremities. Respiratory: Chest is clear to auscultation bilaterally. Bilateral equal air entry. No rales or rhonchi. Abdomen: Soft, positive bowel sounds. Nontender. No organomegaly. Genitourinary: She has an indwelling Mcneil catheter. Musculoskeletal: No clubbing or cyanosis. SUSTAINABLE AGRICULTURE FACULTY: The patient is oriented x2, otherwise moves extremities. LABORATORY REVIEW: Complete blood count (CBC) showed a WBC of 19.9, hemoglobin is 11.4, platelets are 323. Basic metabolic panel (BMP) showed sodium 136, potassium 3.9, chloride 97, bicarb 32, BUN 13, creatinine is 0.55, calcium 8.8, magnesium is 2. CURRENT INPATIENT MEDICATIONS: The patient's medications were all reviewed by me. She continues to be on hydrocortisone 10 mg in the morning and 5 mg in the evening along with midodrine 10 mg by mouth three times a day. No other change in the medications today as compared with yesterday. ASSESSMENT/PLAN: 1. Adrenal insufficiency. The patient is currently on hydrocortisone in the morning and evening. Florinef has been stopped. Electrolytes are within the acceptable range. 2. Chronic hypotension. It is multifactorial secondary to adrenal insufficiency and peripheral neuropathy. Continue current dose of hydrocortisone along with midodrine 10 mg by mouth three times a day. No escalation of regimen at this time since mean arterial pressure is above 60 and the patient is asymptomatic.
[2019-05-06 22:00] VITALS: BP 90/60
[2019-05-07 06:00] VITALS: BP 78/58
[2019-05-07 08:15] LABS: BLOOD UREA NITROGEN 13 MG/DL (7-18); CALCIUM LEVEL 8.4 MG/DL (8.8-10.2); CARBON DIOXIDE LEVEL 29 MEQ/L (21-32); CHLORIDE LEVEL 101 MEQ/L (98-107); CREATININE FOR GFR 0.51 MG/DL (0.55-1.30); GLOMERULAR FILTRATION RATE > 60.0 (>45); GLUCOSE, FASTING 94 MG/DL (70-100); SODIUM LEVEL 140 MEQ/L (136-145)
[2019-05-07] MEDS: ENOXAPARIN 40 MG/0.4 ML SYRINGE (J1650) SC SCH (08:42)
[2019-05-07] MEDS: CitaloPRAM (CeleXA) 10 MG TABLET PO SCH (08:42)
[2019-05-07] MEDS: MIDODRINE 5 MG TAB PO SCH ×2 (08:42→12:06)
[2019-05-07] MEDS: SODIUM CHLORIDE 0.9% INJ 10 ML SYR IV SCH ×2 (08:43→11:59)
[2019-05-07] MEDS: HYDROCORTISONE 5MG TABLET PO SCH (08:43)
[2019-05-07] MEDS: CLOPIDOGREL 75 MG TAB PO SCH (08:43)
[2019-05-07] MEDS: VITAMIN A & D OINTMENT 60 GM TOP SCH ×2 (08:43→12:06)
[2019-05-07] MEDS ORDERED: MAGNESIUM OXIDE 400 MG TAB (MAG-OX) PO SCH (09:00)
[2019-05-07 09:04] LABS: HEMOGLOBIN 10.8 g/dl (12.0-15.5); MEAN CORPUSCULAR HEMOGLOBIN 32.7 pg (27.0-33.0); MEAN CORPUSCULAR HGB CONC 32.7 g/dl (32.0-36.5); PLATELET COUNT, AUTOMATED 325 10^3/uL (150-450); WHITE BLOOD COUNT 18.9 10^3/uL (4.0-10.0)
[2019-05-07 10:01] LABS: ANISOCYTOSIS 2+; ATYPICAL LYMPH 2 % (0-5); BASOPHILS 2 % (0-1); EOSINOPHILS 1 % (0-3); HYPOCHROMASIA 1+; LYMPHOCYTES 28 % (16-44); MONOCYTES 7 % (0-5); NEUTROPHILS 58 % (28-66); PLATELET ESTIMATE NORMAL (NORMAL); POLYCHROMASIA 1+
[2019-05-07] MEDS ORDERED: CORT5TAB2 PO ×2 (10:05)
--- NOTE | 2019-05-07 12:27 | DS.PDOC ---
Discharge Summary General Date of Admission Apr 30, 2019 at 02:45 Date of Discharge 05/07/19 Discharge Summary PROCEDURES PERFORMED DURING STAY: [None]. DISCHARGE DIAGNOSES: Adrenal crisis due to medication noncompliance Chronic hypotension without organ compromise usual MAP is 50 to 55. Autonomic neuropathy and orthostatic hypotension Peripheral neuropathy with poor balance and recurrent falls h/o alcohol abuse mild dementia chronic leucocytosis due to steroids and cancer Small Cell cancer right upper lobe H/O Diabetes CAD h/o CVA Smoker COPD Protein calorie malnutrition. Schizophrenia with poor personal care and grooming. COMPLICATIONS/CHIEF COMPLAINT: Hypotension;Rhabdomyolysis. HISTORY OF PRESENT ILLNESS: See history and physical HOSPITAL COURSE: 63 years old woman with small cell lung carcinoma diagnosed in 08/2016 in her right upper lobe, noncompliant with treatment and lost to follow- up, COPD, adrenal insufficiency, schizophrenia, chronic hypertension, polyarthritis, tobacco abuse, who presented to the hospital after a fall at home. Patient said that she was just standing then fell. Denied LOC. As result of the fall she hit her head and hit her arms. Shortly thereafter she developed right sided rib pain. She came to the hospital because the pain became worse. She was discharged on 04/26/19. Unsure which day she fell. She was very dirty , soiled on arrival. She was with hypotension to 70/40 requiring ICU admission for pressor support. This is the patient's fourth admission to the hospital in the past 2 months. She was recently discharged on 04/26/2019 with adrenal crisis with no source of infection at that time. Seems like she was in adrenal crisis due to medication non compliance. She has been evaluated by psychiatry before and has been deemed to understand her medical issues and so can make her own decisions. She has refused NH or Assisted living placement in the past. She does not have any home support system. Severe hypokalemia and hypomagnesemia corrected nephrology consult appreciated. on hydrocortisone 10 and 5 Adrenal crisis due to medication noncompliance patient put on hydrocortisone now instead of fludrocortisone and prednisone to avoid recurrent hypokalemia. Dirty UA urine culture contaminated. She was very dirty and soiled on arrival Chronic hypotension I suspect she has autonomic neuropathy from diabetes and alcohol abuse and has chronic hypotension with episodes of orthostatic hypotension on the back ground of chronic adrenal insufficiency. continue midodrine. Mild dementia she scored 22/30 in MMSE and repeat was 24/30 in the prior admission. very poor short term memory As per visiting nurses when they go to check on her she does not know any of her medications , could not tell when she last took any medications. and just opens one bottle and started taking pills one after the other and they had to snatch away the bottle from her hand patient is resistant to placement. Has been seen by Psych Last admission and has been deemed to have mental capacity. Leucocytosis steroid related. No obvious source of infection, afebrile Small cell lung cancer, right upper lobe: with right rib fractures 6th and 7th H/o Diabetes mellitus a1c is 5.7 metformin stopped. she does get hyperglycemic in the am Prior history of multiple rib fractures: Pain management when necessary H/o Alcohol abuse and medication noncompliance Neuropathy diabetic and alcoholic recurrent falls Protein-calorie malnutrition. mild CAD and peripheral arterial disease on plavix. COPD no issues at present. Schizophrenia celexa stopped was very sleepy Prior CVA: plavix DISCHARGE MEDICATIONS: Please see below. ALLERGIES: Please see below. PHYSICAL EXAMINATION ON DISCHARGE: VITAL SIGNS: Please see below. General Exam: Alert,oriented x 3, frail and looks older than her age. hair matted and poorly groomed. Eye Exam: PERRLA, pale conjunctiva ENT Exam: MMM, bitemporal wasting. Neck Exam: Supple, no JVD Chest Exam: CTAB, some bibasal crackles. crackles, scattered ronchi. Heart Exam: RRR, no noted murmurs, rubs or gallops Abdomen Exam: Normal bowel sounds, soft, NTND, no hepatosplenomegaly Extremity Exam: WWP, no edema Skin Exam: Normal temperature Neuro Exam: Strength at 5/5 X4 ext, Cranial Nerves 3-12 WNL Psych Exam: Oriented x 3, flat affect LABORATORY DATA: Please see below. ACTIVITY: [As tolerated]. DIET: Regular DISCHARGE PLAN: Home DISCHARGE INSTRUCTIONS: Follow up PMD in 1 week DISCHARGE CONDITION: [Stable]. TIME SPENT ON DISCHARGE: 35 minutes. Vital Signs/I&Os Vital Signs Date Time Temp Pulse Resp B/P (MAP) Pulse Ox O2 Delivery O2 Flow Rate FiO2 05/07/19 06:00 98.5 87 16 78/58 (65) 93 Room Air I&O- Last 24 Hours up to 6 AM 05/07/19 06:00 Intake Total 1500 ml Output Total 350 ml Balance 1150 ml Laboratory Data Labs 24H Laboratory Tests 2 05/07/19 05:40: Immature Granulocyte % (Auto) , Nucleated Red Blood Cells % (auto) 0.1H, Neutrophils 58, Band Neutrophils 2, Lymphocytes (Manual) 28, Monocytes (Manual) 7H, Eosinophils (Manual) 1, Basophils (Manual) 2H, Atypical Lymphocytes 2, Polychromasia 1+, Hypochromasia 1+, Anisocytosis 2+, Platelet Estimate NORMAL, Anion Gap 10, Glomerular Filtration Rate > 60.0, Calcium Level 8.4L CBC/BMP Laboratory Tests 05/07/19 05:40 Microbiology Microbiology 04/29/19 Urine Culture - Final, Complete 04/29/19 Blood Culture - Final, Complete NO GROWTH AFTER 5 DAYS 04/29/19 Blood Culture - Final, Complete NO GROWTH AFTER 5 DAYS Discharge Medications Scheduled Clopidogrel Bisulfate (Plavix) 75 Mg Tablet, 75 MG PO DAILY, (Reported) Hydrocortisone (Cortef) 5 Mg Tablet, 10 MG PO QAM Hydrocortisone (Cortef) 5 Mg Tablet, 5 MG PO QPM Midodrine HCl (Midodrine HCl) 5 Mg Tablet, 10 MG PO TID, (Reported) 0800, 1200 AND 1600 Scheduled PRN Calcium Carbonate (Tums) 200 Mg Tab.chew, 400 MG PO TID PRN for INDIGESTION, (Reported) Allergies Coded Allergies: No Known Allergies (Unverified , 03/27/19) JESUS MUNGUIA MD May 07, 2019 12:27
--- NOTE | 2019-05-07 20:48 | IPN ---
DATE: 05/07/2019 SUBJECTIVE: The patient was seen and examined at the bedside today morning. She is afebrile, hemodynamically stable. Blood pressures are low normal. She is tolerating the hydrocortisone and midodrine. Renal function is stable. Electrolytes are within the acceptable limit. The patient reports that she wants to go home. OBJECTIVE: Vital signs: Temperature is 98.5 degrees Fahrenheit, blood pressures 90/60, pulse is 91, respiratory rate of 18, saturating 93% on room air. Intake and output: Urine output recorded is 1.2 liters yesterday. Mcneil catheter was removed. She has had three voids since overnight. Weight in the bed scale is not available. PHYSICAL EXAMINATION: General: The patient is awake, alert, oriented times three, laying in bed in no apparent distress. Head and neck exam: Extraocular muscles intact. Pupils equally round and reactive to light. Mucous membranes are moist. Neck is supple. There is no JVD. Cardiovascular: S1, S2, regular rate. No edema of the bilateral lower extremities. Respiratory: Chest is clear to auscultation bilaterally. Bilateral equal air entry. No rales or rhonchi. Abdomen: Soft, positive bowel sounds. Nontender. No organomegaly. Musculoskeletal: No clubbing or cyanosis. Pulses are 2+. 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 Follows commands. Moves extremities. LABORATORY REVIEW: CBC showed WBC 18.9, hemoglobin is 10.8, platelets are 325. BMP showed sodium 140, potassium 4, chloride 101, bicarbonate 29, BUN 13, creatinine is 0.5, calcium 8.4. CURRENT INPATIENT MEDICATIONS: The patient's medications were all reviewed by me. She continues to be on hydrocortisone 10 mg in the morning, 5 mg in the evening, midodrine 10 mg by mouth three times a day, magnesium oxide has been changed to 400 mg by mouth daily. No other change in the medications today as compared with yesterday. ASSESSMENT/PLAN: 1. Adrenal insufficiency. The patient's dose of hydrocortisone is optimal. She can be discharged on this dose. No need of additional Florinef at this time. 2. Chronic hypotension. The patient has multifactorial hypotension. Continue current dose of hydrocortisone and midodrine. Blood pressures are acceptable. Mean arterial pressures are above 60 and she is asymptomatic with soft blood pressures. DISPOSITION: Patient's renal function is stable. Electrolytes are within the acceptable limit. Nephrology service is going to sign off at this moment. I would recommend that this patient needs to be discharged to a [facility] given her recurrent admissions after noncompliance with the home medications.
== END 2019-05-07 12:57 | disposition home health service (06) | DRG 424 ==
LOC: M ED 22:14 → M ED INP 04-30 02:45 → M ICU 04-30 11:35 → M MSPAV 05-01 15:24
PROVIDERS: ADMIT Internal Medicine; ATTEND Internal Medicine Nephrology
DX: E27.2 Addisonian crisis (principal); I95.89 Other hypotension; M62.82 Rhabdomyolysis; E46 Unspecified protein-calorie malnutrition; E11.42 Type 2 diabetes mellitus with diabetic polyneuropathy; G62.1 Alcoholic polyneuropathy; C34.11 Malignant neoplasm of upper lobe, right bronchus or lung; F03.90 Unspecified dementia, unspecified severity, without behavioral disturbance, psychotic disturbance, mood disturbance, and anxiety; J44.9 Chronic obstructive pulmonary disease, unspecified; E11.649 Type 2 diabetes mellitus with hypoglycemia without coma; E11.43 Type 2 diabetes mellitus with diabetic autonomic (poly)neuropathy; E11.51 Type 2 diabetes mellitus with diabetic peripheral angiopathy without gangrene; F20.9 Schizophrenia, unspecified; E86.0 Dehydration; I25.10 Atherosclerotic heart disease of native coronary artery without angina pectoris; E83.42 Hypomagnesemia; E87.1 Hypo-osmolality and hyponatremia; F10.188 Alcohol abuse with other alcohol-induced disorder; E87.6 Hypokalemia; D72.829 Elevated white blood cell count, unspecified; R55 Syncope and collapse; F17.200 Nicotine dependence, unspecified, uncomplicated; Z91.14 Patient's other noncompliance with medication regimen; Z79.52 Long term (current) use of systemic steroids; Z79.899 Other long term (current) drug therapy

== ENCOUNTER 2019-05-09 15:43 | Emergency (ER) | payer OTHER ==
[~2019-05-09] VITALS: Ht 154.9 cm; Wt 44.5 kg
[~2019-05-09 15:43] MED LIST changes: +ATOR40TA75 PO; +CORT5TAB2 PO; +TUMS500C PO
[2019-05-09 17:39] VITALS: BP 109/71
--- NOTE | 2019-05-09 17:46 | REP ---
Clinical: Trauma. Fall. Technique: AP, lateral, bilateral oblique views of the left elbow. Findings: Age-related osteopenia and arthritic degenerative changes are appreciated. Lateral view suggests swelling. No obvious acute fracture or dislocation identified. Impression: Osteopenia and degenerative changes. No obvious acute fracture or dislocation. Electronically Signed by Reji Dupree MD 05/09/2019 05:37 P
== END 2019-05-09 17:55 | disposition home or self-care (01) ==
LOC: EDBD 15:43 → M ED 15:43
DX: S50.02XA Contusion of left elbow, initial encounter (principal); W18.31XA Fall on same level due to stepping on an object, initial encounter; Y92.098 Other place in other non-institutional residence as the place of occurrence of the external cause; I10 Essential (primary) hypertension; J44.9 Chronic obstructive pulmonary disease, unspecified; G43.909 Migraine, unspecified, not intractable, without status migrainosus; Z79.899 Other long term (current) drug therapy; Z79.02 Long term (current) use of antithrombotics/antiplatelets

== ENCOUNTER → 2019-06-29 | Outpatient (CLI) | payer SELFPAY ==
[~2019-06-29] MED LIST changes: -MECL-68 PO; +MECL1TAB31 PO
[2019-06-29 13:28] LABS: HEMATOCRIT 49.7 % (36.0-47.0); HEMOGLOBIN 15.3 g/dl (12.0-15.5); MEAN CORPUSCULAR HEMOGLOBIN 29.4 pg (27.0-33.0); MEAN CORPUSCULAR HGB CONC 30.8 g/dl (32.0-36.5); MEAN CORPUSCULAR VOLUME 95.4 fl (80.0-96.0); PLATELET COUNT, AUTOMATED 265 10^3/uL (150-450); RED BLOOD COUNT 5.21 10^6/uL (4.00-5.40); WHITE BLOOD COUNT 16.2 10^3/uL (4.0-10.0)
[2019-06-29 13:41] LABS: HEMOGLOBIN A1c 6.4 %
[2019-06-29 13:56] LABS: ALBUMIN 3.5 GM/DL (3.2-5.2); ALT/SGPT 15 U/L (12-78); BILIRUBIN,TOTAL 0.4 MG/DL (0.2-1.0); BLOOD UREA NITROGEN 5 MG/DL (7-18); CALCIUM LEVEL 8.8 MG/DL (8.8-10.2); CARBON DIOXIDE LEVEL 29 MEQ/L (21-32); CHLORIDE LEVEL 100 MEQ/L (98-107); CREATININE FOR GFR 0.51 MG/DL (0.55-1.30); GLOMERULAR FILTRATION RATE > 60.0 (>45); GLUCOSE, FASTING 97 MG/DL (70-100); MAGNESIUM LEVEL 2.1 MG/DL (1.8-2.4); POTASSIUM SERUM 4.9 MEQ/L (3.5-5.1); SODIUM LEVEL 136 MEQ/L (136-145); TOTAL PROTEIN 6.7 GM/DL (6.4-8.2)
[2019-06-29 14:05] LABS: VITAMIN B12 LEVEL 606 PG/ML (247-911)
[2019-06-29 14:06] LABS: FOLATE 16.2 NG/ML (>5.4)
== END ==
LOC: M LAB 11:35
PROVIDERS: ATTEND Student in an Organized Health Care Education/Training Program
DX: E27.2 Addisonian crisis (principal)

== ENCOUNTER 2020-01-11 15:09 | Inpatient (IN) | payer OTHER, SELFPAY ==
[~2020-01-11] VITALS: Ht 154.9 cm; Wt 44.0 kg
[~2020-01-11 15:09] MED LIST changes: +HYDR-4468 PO; -HYDR-4513 PO; -HYDR20TA17 PO; +HYDR20TA2 PO; -METF-791 PO; +METF-838 PO
[2020-01-11] MEDS ORDERED: ISOVUE-370 76% 100ML VIAL As Ordered ONE (20:30)
[2020-01-11] MEDS ORDERED: ISOVUE-370 76% 100ML VIAL ONE (20:30)
[2020-01-11] MEDS ORDERED: HYDROCORTISONE 100 MG/2 ML VIAL (J1720 PER 1) As Ordered ONE (21:11)
[2020-01-11] MEDS ORDERED: HYDROCORTISONE 100 MG/2 ML VIAL (J1720 PER 1) ONE (21:11)
[2020-01-12] MEDS ORDERED: MULTIVITAMINS/MINERALS THERAP 1 TAB As Ordered ONE (09:00)
[2020-01-12] MEDS ORDERED: FOLIC ACID 1 MG TAB As Ordered ONE (09:01)
[2020-01-12] MEDS ORDERED: THIAMINE 100 MG TAB As Ordered ONE (09:01)
[2020-01-12] MEDS ORDERED: ENOXAPARIN 40MG/0.4ML SYRINGE (J1650 PER 10MG) As Ordered ONE (09:01)
[2020-01-12] MEDS ORDERED: FLUDROCORTISONE ACETATE 0.1 MG TAB ONE (13:00)
[2020-01-13] MEDS ORDERED: MULTIVITAMINS/MINERALS THERAP 1 TAB As Ordered ONE (08:00)
[2020-01-13] MEDS ORDERED: ENOXAPARIN 40MG/0.4ML SYRINGE (J1650 PER 10MG) As Ordered ONE (08:00)
[2020-01-13] MEDS ORDERED: FOLIC ACID 1 MG TAB As Ordered ONE (08:00)
[2020-01-13] MEDS ORDERED: THIAMINE 100 MG TAB As Ordered ONE (08:00)
[2020-01-13] MEDS ORDERED: MAGNESIUM OXIDE 400 MG TAB (MAG-OX) As Ordered ONE ×2 (08:24→21:15)
[2020-01-13] MEDS ORDERED: POTASSIUM CHLORIDE 10 MEQ SR TABLET As Ordered ONE (11:28)
[2020-01-14] MEDS ORDERED: MULTIVITAMINS/MINERALS THERAP 1 TAB As Ordered ONE (10:07)
[2020-01-14] MEDS ORDERED: MAGNESIUM OXIDE 400 MG TAB (MAG-OX) As Ordered ONE ×3 (10:08→20:22)
[2020-01-14] MEDS ORDERED: FOLIC ACID 1 MG TAB As Ordered ONE (10:11)
[2020-01-14] MEDS ORDERED: THIAMINE 100 MG TAB As Ordered ONE (10:11)
[2020-01-14] MEDS ORDERED: LevoFLOXacin 500 MG TABLET As Ordered ONE (16:03)
[2020-01-14] MEDS ORDERED: ACETAMINOPHEN 500 MG TAB As Ordered ONE (20:22)
[2020-01-14] MEDS ORDERED: GABAPENTIN 100 MG CAP As Ordered ONE (20:22)
[2020-01-15] MEDS ORDERED: LevoFLOXacin 500 MG TABLET As Ordered ONE (06:23)
[2020-01-15] MEDS ORDERED: MAGNESIUM OXIDE 400 MG TAB (MAG-OX) As Ordered ONE ×2 (09:06→20:06)
[2020-01-15] MEDS ORDERED: MULTIVITAMINS/MINERALS THERAP 1 TAB As Ordered ONE (09:06)
[2020-01-15] MEDS ORDERED: THIAMINE 100 MG TAB As Ordered ONE (09:07)
[2020-01-15] MEDS ORDERED: FOLIC ACID 1 MG TAB As Ordered ONE (09:07)
[2020-01-15] MEDS ORDERED: ACETAMINOPHEN 500 MG TAB As Ordered ONE ×2 (09:07→20:07)
[2020-01-15] MEDS ORDERED: COSYNTROPIN 0.25 MG/ML VIAL (J0834 PER 0.25MG) ONE (16:00)
[2020-01-15] MEDS ORDERED: MIDODRINE 2.5 MG TAB ONE (16:00)
[2020-01-15] MEDS ORDERED: GABAPENTIN 100 MG CAP As Ordered ONE (20:07)
[2020-01-16] MEDS ORDERED: LevoFLOXacin 500 MG TABLET As Ordered ONE (05:58)
[2020-01-16] MEDS ORDERED: MULTIVITAMINS/MINERALS THERAP 1 TAB As Ordered ONE (09:31)
[2020-01-16] MEDS ORDERED: MAGNESIUM OXIDE 400 MG TAB (MAG-OX) As Ordered ONE ×2 (09:31→20:14)
[2020-01-16] MEDS ORDERED: ACETAMINOPHEN 500 MG TAB As Ordered ONE ×2 (09:31→20:15)
[2020-01-16] MEDS ORDERED: FOLIC ACID 1 MG TAB As Ordered ONE (09:32)
[2020-01-16] MEDS ORDERED: THIAMINE 100 MG TAB As Ordered ONE (09:32)
[2020-01-16] MEDS ORDERED: BUDESONIDE 0.5 MG/2 ML INHALATION SUSPENSION ONE (10:00)
[2020-01-16] MEDS ORDERED: IPRATROPIUM 0.5MG/ALBUTEROL 2.5MG INH SOL UD 3ML (DUONEB) ONE (10:00)
[2020-01-16] MEDS ORDERED: MIDODRINE 2.5 MG TAB ONE (11:00)
[2020-01-16] MEDS ORDERED: GABAPENTIN 100 MG CAP As Ordered ONE (20:15)
[2020-01-17] MEDS ORDERED: LevoFLOXacin 500 MG TABLET As Ordered ONE (07:31)
[2020-01-17] MEDS ORDERED: ACETAMINOPHEN 500 MG TAB As Ordered ONE ×2 (08:24→19:57)
[2020-01-17] MEDS ORDERED: MULTIVITAMINS/MINERALS THERAP 1 TAB As Ordered ONE (08:24)
[2020-01-17] MEDS ORDERED: MAGNESIUM OXIDE 400 MG TAB (MAG-OX) As Ordered ONE ×2 (08:24→19:56)
[2020-01-17] MEDS ORDERED: THIAMINE 100 MG TAB As Ordered ONE (08:24)
[2020-01-17] MEDS ORDERED: FOLIC ACID 1 MG TAB As Ordered ONE (08:25)
[2020-01-17] MEDS ORDERED: BUDESONIDE 0.5 MG/2 ML INHALATION SUSPENSION ONE (10:00)
[2020-01-17] MEDS ORDERED: IPRATROPIUM 0.5MG/ALBUTEROL 2.5MG INH SOL UD 3ML (DUONEB) ONE (10:00)
[2020-01-17] MEDS ORDERED: GABAPENTIN 100 MG CAP As Ordered ONE (19:57)
[2020-01-18] MEDS ORDERED: LevoFLOXacin 500 MG TABLET As Ordered ONE (05:15)
[2020-01-18] MEDS ORDERED: ACETAMINOPHEN 500 MG TAB As Ordered ONE ×2 (08:10→20:05)
[2020-01-18] MEDS ORDERED: MAGNESIUM OXIDE 400 MG TAB (MAG-OX) As Ordered ONE ×2 (08:10→20:04)
[2020-01-18] MEDS ORDERED: MULTIVITAMINS/MINERALS THERAP 1 TAB As Ordered ONE (08:10)
[2020-01-18] MEDS ORDERED: FOLIC ACID 1 MG TAB As Ordered ONE (08:11)
[2020-01-18] MEDS ORDERED: THIAMINE 100 MG TAB As Ordered ONE (08:11)
[2020-01-18] MEDS ORDERED: IPRATROPIUM 0.5MG/ALBUTEROL 2.5MG INH SOL UD 3ML (DUONEB) ONE (10:00)
[2020-01-18] MEDS ORDERED: BUDESONIDE 0.5 MG/2 ML INHALATION SUSPENSION ONE (10:00)
[2020-01-18] MEDS ORDERED: MIDODRINE 2.5 MG TAB ONE (13:00)
[2020-01-18] MEDS ORDERED: GABAPENTIN 100 MG CAP As Ordered ONE (20:05)
[2020-01-19] MEDS ORDERED: LevoFLOXacin 500 MG TABLET As Ordered ONE (06:02)
[2020-01-19] MEDS ORDERED: MAGNESIUM OXIDE 400 MG TAB (MAG-OX) As Ordered ONE ×2 (08:09→21:14)
[2020-01-19] MEDS ORDERED: THIAMINE 100 MG TAB As Ordered ONE (08:10)
[2020-01-19] MEDS ORDERED: MULTIVITAMINS/MINERALS THERAP 1 TAB As Ordered ONE (08:10)
[2020-01-19] MEDS ORDERED: GABAPENTIN 100 MG CAP As Ordered ONE ×2 (08:10→21:14)
[2020-01-19] MEDS ORDERED: FOLIC ACID 1 MG TAB As Ordered ONE (08:10)
[2020-01-19] MEDS ORDERED: MIDODRINE 5 MG TAB As Ordered ONE ×3 (08:23→17:43)
[2020-01-19] MEDS ORDERED: ACETAMINOPHEN 500 MG TAB As Ordered ONE ×2 (08:23→21:14)
[2020-01-19] MEDS ORDERED: BUDESONIDE 0.5 MG/2 ML INHALATION SUSPENSION ONE (10:00)
[2020-01-19] MEDS ORDERED: IPRATROPIUM 0.5MG/ALBUTEROL 2.5MG INH SOL UD 3ML (DUONEB) ONE (10:00)
[2020-01-19] MEDS ORDERED: MIDODRINE 5 MG TAB ONE (13:10)
[2020-01-19] MEDS ORDERED: MAGNESIUM OXIDE 400 MG TAB (MAG-OX) ONE (21:14)
[2020-01-19] MEDS ORDERED: ACETAMINOPHEN 500 MG TAB ONE (21:14)
[2020-01-19] MEDS ORDERED: GABAPENTIN 100 MG CAP ONE (21:14)
[2020-01-20] MEDS ORDERED: LevoFLOXacin 500 MG TABLET As Ordered ONE (05:46)
[2020-01-20] MEDS ORDERED: MAGNESIUM OXIDE 400 MG TAB (MAG-OX) As Ordered ONE ×2 (09:39→20:59)
[2020-01-20] MEDS ORDERED: MULTIVITAMINS/MINERALS THERAP 1 TAB As Ordered ONE (09:39)
[2020-01-20] MEDS ORDERED: GABAPENTIN 100 MG CAP As Ordered ONE ×2 (09:40→21:00)
[2020-01-20] MEDS ORDERED: THIAMINE 100 MG TAB As Ordered ONE (09:40)
[2020-01-20] MEDS ORDERED: ACETAMINOPHEN 500 MG TAB ONE (09:40)
[2020-01-20] MEDS ORDERED: ACETAMINOPHEN 500 MG TAB As Ordered ONE ×2 (09:40→21:00)
[2020-01-20] MEDS ORDERED: MIDODRINE 5 MG TAB As Ordered ONE ×2 (09:40→15:57)
[2020-01-20] MEDS ORDERED: FOLIC ACID 1 MG TAB As Ordered ONE (09:41)
[2020-01-20] MEDS ORDERED: IPRATROPIUM 0.5MG/ALBUTEROL 2.5MG INH SOL UD 3ML (DUONEB) ONE (10:00)
[2020-01-20] MEDS ORDERED: BUDESONIDE 0.5 MG/2 ML INHALATION SUSPENSION ONE (10:00)
[2020-01-21] MEDS ORDERED: LevoFLOXacin 500 MG TABLET As Ordered ONE (06:15)
[2020-01-21] MEDS ORDERED: MIDODRINE 5 MG TAB As Ordered ONE ×3 (06:52→15:42)
[2020-01-21] MEDS ORDERED: ACETAMINOPHEN 500 MG TAB As Ordered ONE ×2 (08:53→20:14)
[2020-01-21] MEDS ORDERED: MULTIVITAMINS/MINERALS THERAP 1 TAB As Ordered ONE (08:53)
[2020-01-21] MEDS ORDERED: MAGNESIUM OXIDE 400 MG TAB (MAG-OX) As Ordered ONE ×2 (08:53→20:12)
[2020-01-21] MEDS ORDERED: ACETAMINOPHEN 500 MG TAB ONE (08:53)
[2020-01-21] MEDS ORDERED: THIAMINE 100 MG TAB As Ordered ONE (08:54)
[2020-01-21] MEDS ORDERED: FOLIC ACID 1 MG TAB As Ordered ONE (08:54)
[2020-01-21] MEDS ORDERED: IPRATROPIUM 0.5MG/ALBUTEROL 2.5MG INH SOL UD 3ML (DUONEB) ONE (10:00)
[2020-01-21] MEDS ORDERED: BUDESONIDE 0.5 MG/2 ML INHALATION SUSPENSION ONE (10:00)
[2020-01-21] MEDS ORDERED: NICOTINE 14 MG/24 HR TRANSDERMAL As Ordered ONE (13:35)
[2020-01-21] MEDS ORDERED: MOM 30ML SUSPENSION UDC As Ordered ONE (17:03)
[2020-01-21] MEDS ORDERED: GABAPENTIN 100 MG CAP As Ordered ONE (20:12)
[2020-01-22] MEDS ORDERED: LevoFLOXacin 500 MG TABLET As Ordered ONE (05:20)
[2020-01-22] MEDS ORDERED: NICOTINE 14 MG/24 HR TRANSDERMAL As Ordered ONE (08:30)
[2020-01-22] MEDS ORDERED: MULTIVITAMINS/MINERALS THERAP 1 TAB As Ordered ONE (08:30)
[2020-01-22] MEDS ORDERED: MAGNESIUM OXIDE 400 MG TAB (MAG-OX) As Ordered ONE ×2 (08:30→20:26)
[2020-01-22] MEDS ORDERED: FOLIC ACID 1 MG TAB As Ordered ONE (08:31)
[2020-01-22] MEDS ORDERED: THIAMINE 100 MG TAB As Ordered ONE (08:31)
[2020-01-22] MEDS ORDERED: ACETAMINOPHEN 500 MG TAB As Ordered ONE ×2 (08:31→20:28)
[2020-01-22] MEDS ORDERED: IPRATROPIUM 0.5MG/ALBUTEROL 2.5MG INH SOL UD 3ML (DUONEB) ONE (10:00)
[2020-01-22] MEDS ORDERED: BUDESONIDE 0.5 MG/2 ML INHALATION SUSPENSION ONE (10:00)
[2020-01-22] MEDS ORDERED: GABAPENTIN 100 MG CAP As Ordered ONE (20:28)
[2020-01-23] MEDS ORDERED: LevoFLOXacin 500 MG TABLET As Ordered ONE (05:58)
[2020-01-23] MEDS ORDERED: NICOTINE 14 MG/24 HR TRANSDERMAL As Ordered ONE (08:06)
[2020-01-23] MEDS ORDERED: MAGNESIUM OXIDE 400 MG TAB (MAG-OX) As Ordered ONE ×2 (08:06→20:59)
[2020-01-23] MEDS ORDERED: THIAMINE 100 MG TAB As Ordered ONE (08:07)
[2020-01-23] MEDS ORDERED: GABAPENTIN 100 MG CAP As Ordered ONE ×2 (08:07→21:02)
[2020-01-23] MEDS ORDERED: ACETAMINOPHEN 500 MG TAB As Ordered ONE ×2 (08:07→21:01)
[2020-01-23] MEDS ORDERED: FOLIC ACID 1 MG TAB As Ordered ONE (08:07)
[2020-01-23] MEDS ORDERED: MULTIVITAMINS/MINERALS THERAP 1 TAB As Ordered ONE (08:07)
[2020-01-23] MEDS ORDERED: BUDESONIDE 0.5 MG/2 ML INHALATION SUSPENSION ONE (10:00)
[2020-01-23] MEDS ORDERED: IPRATROPIUM 0.5MG/ALBUTEROL 2.5MG INH SOL UD 3ML (DUONEB) ONE (10:00)
[2020-01-23] MEDS ORDERED: MIDODRINE 2.5 MG TAB ONE (13:36)
[2020-01-24] MEDS ORDERED: LevoFLOXacin 500 MG TABLET As Ordered ONE (06:20)
[2020-01-24] MEDS ORDERED: IPRATROPIUM 0.5MG/ALBUTEROL 2.5MG INH SOL UD 3ML (DUONEB) ONE (10:00)
[2020-01-24] MEDS ORDERED: BUDESONIDE 0.5 MG/2 ML INHALATION SUSPENSION ONE (10:00)
[2020-01-24] MEDS ORDERED: MAGNESIUM OXIDE 400 MG TAB (MAG-OX) As Ordered ONE ×2 (10:09→21:59)
[2020-01-24] MEDS ORDERED: MULTIVITAMINS/MINERALS THERAP 1 TAB As Ordered ONE (10:09)
[2020-01-24] MEDS ORDERED: THIAMINE 100 MG TAB As Ordered ONE (10:10)
[2020-01-24] MEDS ORDERED: MIDODRINE 5 MG TAB As Ordered ONE ×3 (10:10→16:30)
[2020-01-24] MEDS ORDERED: FOLIC ACID 1 MG TAB As Ordered ONE (10:10)
[2020-01-24] MEDS ORDERED: ACETAMINOPHEN 500 MG TAB As Ordered ONE ×2 (10:10→22:00)
[2020-01-24] MEDS ORDERED: VANCOMYCIN 1000MG/20ML VIAL As Ordered ONE (22:00)
[2020-01-24] MEDS ORDERED: GABAPENTIN 100 MG CAP As Ordered ONE (22:00)
[2020-01-25] MEDS ORDERED: LevoFLOXacin 500 MG TABLET As Ordered ONE (05:45)
[2020-01-25] MEDS ORDERED: MULTIVITAMINS/MINERALS THERAP 1 TAB As Ordered ONE (08:40)
[2020-01-25] MEDS ORDERED: MAGNESIUM OXIDE 400 MG TAB (MAG-OX) As Ordered ONE ×2 (08:40→20:42)
[2020-01-25] MEDS ORDERED: THIAMINE 100 MG TAB As Ordered ONE (08:41)
[2020-01-25] MEDS ORDERED: FOLIC ACID 1 MG TAB As Ordered ONE (08:41)
[2020-01-25] MEDS ORDERED: MIDODRINE 5 MG TAB As Ordered ONE ×2 (08:41→13:32)
[2020-01-25] MEDS ORDERED: ACETAMINOPHEN 500 MG TAB As Ordered ONE ×2 (08:41→20:42)
[2020-01-25] MEDS ORDERED: BUDESONIDE 0.5 MG/2 ML INHALATION SUSPENSION ONE (10:00)
[2020-01-25] MEDS ORDERED: IPRATROPIUM 0.5MG/ALBUTEROL 2.5MG INH SOL UD 3ML (DUONEB) ONE (10:00)
[2020-01-25] MEDS ORDERED: VANCOMYCIN 1000MG/20ML VIAL As Ordered ONE (17:11)
[2020-01-25] MEDS ORDERED: GABAPENTIN 100 MG CAP As Ordered ONE (20:42)
[2020-01-26] MEDS ORDERED: LevoFLOXacin 500 MG TABLET As Ordered ONE (06:15)
[2020-01-26] MEDS ORDERED: MULTIVITAMINS/MINERALS THERAP 1 TAB As Ordered ONE (09:16)
[2020-01-26] MEDS ORDERED: MAGNESIUM OXIDE 400 MG TAB (MAG-OX) As Ordered ONE ×2 (09:16→20:13)
[2020-01-26] MEDS ORDERED: VANCOMYCIN 1000MG/20ML VIAL As Ordered ONE ×2 (09:17→20:14)
[2020-01-26] MEDS ORDERED: ACETAMINOPHEN 500 MG TAB As Ordered ONE ×2 (09:17→20:12)
[2020-01-26] MEDS ORDERED: FOLIC ACID 1 MG TAB As Ordered ONE (09:18)
[2020-01-26] MEDS ORDERED: THIAMINE 100 MG TAB As Ordered ONE (09:18)
[2020-01-26] MEDS ORDERED: BUDESONIDE 0.5 MG/2 ML INHALATION SUSPENSION ONE (10:00)
[2020-01-26] MEDS ORDERED: IPRATROPIUM 0.5MG/ALBUTEROL 2.5MG INH SOL UD 3ML (DUONEB) ONE (10:00)
[2020-01-26] MEDS ORDERED: GABAPENTIN 100 MG CAP As Ordered ONE (20:14)
[2020-01-27] MEDS ORDERED: LevoFLOXacin 500 MG TABLET As Ordered ONE (05:29)
[2020-01-27] MEDS ORDERED: MULTIVITAMINS/MINERALS THERAP 1 TAB As Ordered ONE (09:38)
[2020-01-27] MEDS ORDERED: MAGNESIUM OXIDE 400 MG TAB (MAG-OX) As Ordered ONE ×2 (09:38→19:52)
[2020-01-27] MEDS ORDERED: VANCOMYCIN 1000MG/20ML VIAL As Ordered ONE ×2 (09:39→19:53)
[2020-01-27] MEDS ORDERED: FOLIC ACID 1 MG TAB As Ordered ONE (09:39)
[2020-01-27] MEDS ORDERED: THIAMINE 100 MG TAB As Ordered ONE (09:39)
[2020-01-27] MEDS ORDERED: BUDESONIDE 0.5 MG/2 ML INHALATION SUSPENSION ONE (10:00)
[2020-01-27] MEDS ORDERED: IPRATROPIUM 0.5MG/ALBUTEROL 2.5MG INH SOL UD 3ML (DUONEB) ONE (10:00)
[2020-01-27] MEDS ORDERED: GABAPENTIN 100 MG CAP As Ordered ONE (19:53)
[2020-01-28] MEDS ORDERED: MULTIVITAMINS/MINERALS THERAP 1 TAB As Ordered ONE (08:49)
[2020-01-28] MEDS ORDERED: THIAMINE 100 MG TAB As Ordered ONE (08:49)
[2020-01-28] MEDS ORDERED: MAGNESIUM OXIDE 400 MG TAB (MAG-OX) As Ordered ONE ×2 (08:49→21:25)
[2020-01-28] MEDS ORDERED: FOLIC ACID 1 MG TAB As Ordered ONE (08:49)
[2020-01-28] MEDS ORDERED: VANCOMYCIN 1000MG/20ML VIAL As Ordered ONE (08:49)
[2020-01-28] MEDS ORDERED: BUDESONIDE 0.5 MG/2 ML INHALATION SUSPENSION ONE (10:00)
[2020-01-28] MEDS ORDERED: IPRATROPIUM 0.5MG/ALBUTEROL 2.5MG INH SOL UD 3ML (DUONEB) ONE (10:00)
[2020-01-28] MEDS ORDERED: BACTRIM 160MG/800MG DS TAB As Ordered ONE ×2 (12:48→21:26)
[2020-01-28] MEDS ORDERED: MIDODRINE 2.5 MG TAB ONE (13:00)
[2020-01-28] MEDS ORDERED: GABAPENTIN 100 MG CAP As Ordered ONE (21:26)
[2020-01-29] MEDS ORDERED: MULTIVITAMINS/MINERALS THERAP 1 TAB As Ordered ONE (09:15)
[2020-01-29] MEDS ORDERED: ACETAMINOPHEN 500 MG TAB As Ordered ONE (09:15)
[2020-01-29] MEDS ORDERED: MIDODRINE 5 MG TAB As Ordered ONE ×2 (09:15→16:12)
[2020-01-29] MEDS ORDERED: BACTRIM 160MG/800MG DS TAB As Ordered ONE (09:15)
[2020-01-29] MEDS ORDERED: ENOXAPARIN 30MG/0.3ML SYRINGE (J1650 PER 10MG) As Ordered ONE (09:15)
[2020-01-29] MEDS ORDERED: NICOTINE 14 MG/24 HR TRANSDERMAL As Ordered ONE (09:15)
[2020-01-29] MEDS ORDERED: MAGNESIUM OXIDE 400 MG TAB (MAG-OX) As Ordered ONE (09:15)
[2020-01-29] MEDS ORDERED: THIAMINE 100 MG TAB As Ordered ONE (09:16)
[2020-01-29] MEDS ORDERED: FOLIC ACID 1 MG TAB As Ordered ONE (09:16)
[2020-01-29] MEDS ORDERED: LORazepam 2 MG/ML VIAL IV PRN (15:00)
[2020-01-29] MEDS ORDERED: ALBUTEROL SULFATE 2.5 MG/0.5 ML INH NEB SOLN INH PRN (19:00)
[2020-01-29] MEDS ORDERED: MOM 30ML SUSPENSION UDC PO PRN (19:00)
[2020-01-29] MEDS: GABAPENTIN 100 MG CAP PO SCH (20:19)
[2020-01-29] MEDS: ACETAMINOPHEN 500 MG TAB PO SCH (20:20)
[2020-01-29] MEDS: MAGNESIUM OXIDE 400 MG TAB (MAG-OX) PO SCH (20:20)
[2020-01-29] MEDS ORDERED: BACTRIM 160MG/800MG DS TAB PO SCH (21:00)
[2020-01-29] MEDS: DOXYCYCLINE HYCLATE 100MG TABLET PO SCH (21:00)
[2020-01-29 21:25] LABS: HEMOGLOBIN 14.2 g/dl (12.0-15.5); MEAN CORPUSCULAR HEMOGLOBIN 32.5 pg (27.0-33.0); MEAN CORPUSCULAR HGB CONC 33.8 g/dl (32.0-36.5); MEAN CORPUSCULAR VOLUME 96.1 fl (80.0-96.0); PLATELET COUNT, AUTOMATED 247 10^3/uL (150-450); RED BLOOD COUNT 4.37 10^6/uL (4.00-5.40); WHITE BLOOD COUNT 13.3 10^3/uL (4.0-10.0)
[2020-01-29 22:00] VITALS: BP 104/54
[2020-01-30 06:00] VITALS: BP 114/55
[2020-01-30] MEDS: BUDESONIDE 0.5 MG/2 ML INHALATION SUSPENSION INH SCH ×2 (08:06→19:51)
[2020-01-30] MEDS: IPRATROPIUM 0.5MG/ALBUTEROL 2.5MG INH SOL UD 3ML (DUONEB) NEB SCH ×3 (08:07→19:51)
[2020-01-30] MEDS: FOLIC ACID 1 MG TAB PO SCH (08:51)
[2020-01-30] MEDS: LACTOBACILLUS ACIDOPHILUS CAP (BACID) PO SCH (08:51)
[2020-01-30] MEDS: MULTIVITAMINS/MINERALS THERAP 1 TAB PO SCH (08:51)
[2020-01-30] MEDS: MAGNESIUM OXIDE 400 MG TAB (MAG-OX) PO SCH ×2 (08:51→20:41)
[2020-01-30] MEDS: THIAMINE 100 MG TAB PO SCH (08:53)
[2020-01-30] MEDS: MIDODRINE 2.5 MG TAB PO SCH ×3 (08:53→16:51)
[2020-01-30] MEDS: DOXYCYCLINE HYCLATE 100MG TABLET PO SCH ×2 (08:53→20:41)
[2020-01-30] MEDS: ACETAMINOPHEN 500 MG TAB PO SCH ×2 (08:53→20:41)
[2020-01-30] MEDS: NICOTINE 14 MG/24 HR TRANSDERMAL TD SCH (08:54)
[2020-01-30] MEDS: ENOXAPARIN 30MG/0.3ML SYRINGE (J1650 PER 10MG) SC SCH (08:54)
[2020-01-30 14:00] VITALS: BP 122/60
[2020-01-30] MEDS: GABAPENTIN 100 MG CAP PO SCH (20:41)
[2020-01-30 22:00] VITALS: BP 125/63
[2020-01-31 06:00] VITALS: BP 130/60
[2020-01-31] MEDS: BUDESONIDE 0.5 MG/2 ML INHALATION SUSPENSION INH SCH ×2 (08:09→18:10)
[2020-01-31] MEDS: IPRATROPIUM 0.5MG/ALBUTEROL 2.5MG INH SOL UD 3ML (DUONEB) NEB SCH ×3 (08:09→18:10)
[2020-01-31] MEDS: NICOTINE 14 MG/24 HR TRANSDERMAL TD SCH (09:00)
[2020-01-31] MEDS: DOXYCYCLINE HYCLATE 100MG TABLET PO SCH ×2 (09:10→21:33)
[2020-01-31] MEDS: MIDODRINE 2.5 MG TAB PO SCH ×3 (09:10→16:19)
[2020-01-31] MEDS: ENOXAPARIN 30MG/0.3ML SYRINGE (J1650 PER 10MG) SC SCH (09:10)
[2020-01-31] MEDS: MULTIVITAMINS/MINERALS THERAP 1 TAB PO SCH (09:10)
[2020-01-31] MEDS: MAGNESIUM OXIDE 400 MG TAB (MAG-OX) PO SCH ×2 (09:11→21:33)
[2020-01-31] MEDS: LACTOBACILLUS ACIDOPHILUS CAP (BACID) PO SCH (09:11)
[2020-01-31] MEDS: FOLIC ACID 1 MG TAB PO SCH (09:11)
[2020-01-31] MEDS: ACETAMINOPHEN 500 MG TAB PO SCH ×2 (09:12→21:33)
[2020-01-31] MEDS: THIAMINE 100 MG TAB PO SCH (09:16)
[2020-01-31 10:26] LABS: HEMATOCRIT 42.6 % (36.0-47.0); HEMOGLOBIN 14.4 g/dl (12.0-15.5); MEAN CORPUSCULAR HGB CONC 33.8 g/dl (32.0-36.5); MEAN CORPUSCULAR VOLUME 94.7 fl (80.0-96.0); PLATELET COUNT, AUTOMATED 275 10^3/uL (150-450); WHITE BLOOD COUNT 14.1 10^3/uL (4.0-10.0)
[2020-01-31 11:01] LABS: BASO # 0.1 10^3/uL (0.0-0.2); BASO % 0.8 % (0.0-1.0); EOS # 0.2 10^3/uL (0.0-0.5); EOS % 2.4 % (0.0-3.0); HEMATOCRIT 44.2 % (36.0-47.0); LYMPH # 1.7 10^3/uL (1.5-5.0); LYMPH % 17.4 % (24.0-44.0); MEAN CORPUSCULAR HEMOGLOBIN 31.7 pg (27.0-33.0); MEAN CORPUSCULAR HGB CONC 33.9 g/dl (32.0-36.5); MEAN CORPUSCULAR VOLUME 93.4 fl (80.0-96.0); MONO # 1.6 10^3/uL (0.0-0.8); NEUTROPHILS # 5.9 10^3/uL (1.5-8.5); NEUTROPHILS % 61.5 % (36.0-66.0); PLATELET COUNT, AUTOMATED 211 10^3/uL (150-450); RED BLOOD COUNT 4.73 10^6/uL (4.00-5.40); WHITE BLOOD COUNT 9.7 10^3/uL (4.0-10.0)
[2020-01-31 12:12] LABS: BLOOD UREA NITROGEN 20 MG/DL (7-18); CALCIUM LEVEL 8.9 MG/DL (8.8-10.2); CARBON DIOXIDE LEVEL 28 MEQ/L (21-32); CHLORIDE LEVEL 104 MEQ/L (98-107); CREATININE FOR GFR 0.63 MG/DL (0.55-1.30); GLOMERULAR FILTRATION RATE > 60.0 (>45); GLUCOSE, FASTING 136 MG/DL (70-100); POTASSIUM SERUM 3.9 MEQ/L (3.5-5.1); SODIUM LEVEL 137 MEQ/L (136-145)
[2020-01-31 14:00] VITALS: BP 110/63
[2020-01-31] MEDS: GABAPENTIN 100 MG CAP PO SCH (21:33)
[2020-01-31 22:00] VITALS: BP 138/67
[2020-02-01] MEDS: IPRATROPIUM 0.5MG/ALBUTEROL 2.5MG INH SOL UD 3ML (DUONEB) NEB SCH ×4 (01:54→18:18)
[2020-02-01 06:00] VITALS: BP 127/57
[2020-02-01] MEDS: BUDESONIDE 0.5 MG/2 ML INHALATION SUSPENSION INH SCH ×2 (07:56→18:17)
[2020-02-01] MEDS: ENOXAPARIN 30MG/0.3ML SYRINGE (J1650 PER 10MG) SC SCH (08:57)
[2020-02-01] MEDS: MULTIVITAMINS/MINERALS THERAP 1 TAB PO SCH (08:58)
[2020-02-01] MEDS: MIDODRINE 2.5 MG TAB PO SCH ×3 (08:58→16:27)
[2020-02-01] MEDS: LACTOBACILLUS ACIDOPHILUS CAP (BACID) PO SCH (08:58)
[2020-02-01] MEDS: THIAMINE 100 MG TAB PO SCH (08:58)
[2020-02-01] MEDS: DOXYCYCLINE HYCLATE 100MG TABLET PO SCH ×2 (08:58→20:05)
[2020-02-01] MEDS: FOLIC ACID 1 MG TAB PO SCH (08:58)
[2020-02-01] MEDS: MAGNESIUM OXIDE 400 MG TAB (MAG-OX) PO SCH ×2 (08:58→20:05)
[2020-02-01] MEDS: NICOTINE 14 MG/24 HR TRANSDERMAL TD SCH (08:59)
[2020-02-01] MEDS: ACETAMINOPHEN 500 MG TAB PO SCH ×2 (08:59→20:05)
[2020-02-01 14:00] VITALS: BP 118/66
[2020-02-01 19:54] VITALS: BP 117/56
[2020-02-01] MEDS: GABAPENTIN 100 MG CAP PO SCH (20:05)
[2020-02-02] MEDS: IPRATROPIUM 0.5MG/ALBUTEROL 2.5MG INH SOL UD 3ML (DUONEB) NEB SCH ×4 (01:45→17:58)
[2020-02-02] MEDS: BUDESONIDE 0.5 MG/2 ML INHALATION SUSPENSION INH SCH ×2 (06:08→17:58)
[2020-02-02 06:09] VITALS: BP 116/59
[2020-02-02] MEDS: LACTOBACILLUS ACIDOPHILUS CAP (BACID) PO SCH (08:48)
[2020-02-02] MEDS: FOLIC ACID 1 MG TAB PO SCH (08:48)
[2020-02-02] MEDS: MULTIVITAMINS/MINERALS THERAP 1 TAB PO SCH (08:48)
[2020-02-02] MEDS: DOXYCYCLINE HYCLATE 100MG TABLET PO SCH ×2 (08:48→20:18)
[2020-02-02] MEDS: MIDODRINE 2.5 MG TAB PO SCH ×3 (08:48→15:44)
[2020-02-02] MEDS: MAGNESIUM OXIDE 400 MG TAB (MAG-OX) PO SCH ×2 (08:48→20:18)
[2020-02-02] MEDS: ENOXAPARIN 30MG/0.3ML SYRINGE (J1650 PER 10MG) SC SCH (08:49)
[2020-02-02] MEDS: ACETAMINOPHEN 500 MG TAB PO SCH ×2 (08:49→20:18)
[2020-02-02] MEDS: NICOTINE 14 MG/24 HR TRANSDERMAL TD SCH (08:49)
[2020-02-02] MEDS: THIAMINE 100 MG TAB PO SCH (08:59)
[2020-02-02 14:00] VITALS: BP 116/59
[2020-02-02] MEDS: GABAPENTIN 100 MG CAP PO SCH (20:18)
[2020-02-02 22:00] VITALS: BP 121/61
[2020-02-02 23:10] LABS: BLOOD UREA NITROGEN 23 MG/DL (7-18); CARBON DIOXIDE LEVEL 29 MEQ/L (21-32); CHLORIDE LEVEL 101 MEQ/L (98-107); CREATININE FOR GFR 0.54 MG/DL (0.55-1.30); GLOMERULAR FILTRATION RATE > 60.0 (>45); GLUCOSE, FASTING 71 MG/DL (70-100); POTASSIUM SERUM 4.1 MEQ/L (3.5-5.1); SODIUM LEVEL 135 MEQ/L (136-145)
[2020-02-03] MEDS: IPRATROPIUM 0.5MG/ALBUTEROL 2.5MG INH SOL UD 3ML (DUONEB) NEB SCH ×4 (00:45→18:14)
[2020-02-03 06:00] VITALS: BP 108/66
[2020-02-03] MEDS: BUDESONIDE 0.5 MG/2 ML INHALATION SUSPENSION INH SCH ×2 (07:55→18:15)
[2020-02-03] MEDS: MIDODRINE 2.5 MG TAB PO SCH ×3 (08:02→18:17)
[2020-02-03] MEDS: LACTOBACILLUS ACIDOPHILUS CAP (BACID) PO SCH (08:02)
[2020-02-03] MEDS: DOXYCYCLINE HYCLATE 100MG TABLET PO SCH ×2 (08:02→20:30)
[2020-02-03] MEDS: THIAMINE 100 MG TAB PO SCH (08:02)
[2020-02-03] MEDS: FOLIC ACID 1 MG TAB PO SCH (08:02)
[2020-02-03] MEDS: ACETAMINOPHEN 500 MG TAB PO SCH ×2 (08:02→20:30)
[2020-02-03] MEDS: MULTIVITAMINS/MINERALS THERAP 1 TAB PO SCH (08:02)
[2020-02-03] MEDS: NICOTINE 14 MG/24 HR TRANSDERMAL TD SCH (08:03)
[2020-02-03] MEDS: MAGNESIUM OXIDE 400 MG TAB (MAG-OX) PO SCH ×2 (08:03→20:30)
[2020-02-03] MEDS: ENOXAPARIN 30MG/0.3ML SYRINGE (J1650 PER 10MG) SC SCH (08:03)
[2020-02-03] MEDS: GABAPENTIN 100 MG CAP PO SCH (20:30)
[2020-02-03 20:35] LABS: HEMATOCRIT 44.9 % (36.0-47.0); HEMOGLOBIN 15.3 g/dl (12.0-15.5); MEAN CORPUSCULAR HEMOGLOBIN 32.2 pg (27.0-33.0); MEAN CORPUSCULAR HGB CONC 34.1 g/dl (32.0-36.5); MEAN CORPUSCULAR VOLUME 94.5 fl (80.0-96.0); PLATELET COUNT, AUTOMATED 202 10^3/uL (150-450); RED BLOOD COUNT 4.75 10^6/uL (4.00-5.40); WHITE BLOOD COUNT 12.7 10^3/uL (4.0-10.0)
[2020-02-03 21:53] LABS: HEMATOCRIT 45.5 % (36.0-47.0); HEMOGLOBIN 15.4 g/dl (12.0-15.5); MEAN CORPUSCULAR HEMOGLOBIN 32.4 pg (27.0-33.0); MEAN CORPUSCULAR HGB CONC 33.8 g/dl (32.0-36.5); MEAN CORPUSCULAR VOLUME 95.6 fl (80.0-96.0); PLATELET COUNT, AUTOMATED 265 10^3/uL (150-450); RED BLOOD COUNT 4.76 10^6/uL (4.00-5.40); WHITE BLOOD COUNT 13.7 10^3/uL (4.0-10.0)
[2020-02-04] MEDS: IPRATROPIUM 0.5MG/ALBUTEROL 2.5MG INH SOL UD 3ML (DUONEB) NEB SCH ×4 (01:47→18:06)
[2020-02-04 06:00] VITALS: BP 118/72
[2020-02-04] MEDS: BUDESONIDE 0.5 MG/2 ML INHALATION SUSPENSION INH SCH ×2 (07:35→18:06)
[2020-02-04] MEDS: MIDODRINE 2.5 MG TAB PO SCH ×3 (08:27→15:20)
[2020-02-04] MEDS: LACTOBACILLUS ACIDOPHILUS CAP (BACID) PO SCH (08:27)
[2020-02-04] MEDS: MAGNESIUM OXIDE 400 MG TAB (MAG-OX) PO SCH ×2 (08:27→20:03)
[2020-02-04] MEDS: ACETAMINOPHEN 500 MG TAB PO SCH ×3 (08:28→20:05)
[2020-02-04] MEDS: MULTIVITAMINS/MINERALS THERAP 1 TAB PO SCH (08:28)
[2020-02-04] MEDS: FOLIC ACID 1 MG TAB PO SCH (08:28)
[2020-02-04] MEDS: NICOTINE 14 MG/24 HR TRANSDERMAL TD SCH (08:28)
[2020-02-04] MEDS: ENOXAPARIN 30MG/0.3ML SYRINGE (J1650 PER 10MG) SC SCH (08:28)
[2020-02-04] MEDS: THIAMINE 100 MG TAB PO SCH (08:28)
[2020-02-04] MEDS: DOXYCYCLINE HYCLATE 100MG TABLET PO SCH ×2 (08:28→20:03)
[2020-02-04] MEDS: GABAPENTIN 100 MG CAP PO SCH (20:03)
[2020-02-05] MEDS: IPRATROPIUM 0.5MG/ALBUTEROL 2.5MG INH SOL UD 3ML (DUONEB) NEB SCH ×4 (01:33→19:22)
[2020-02-05 06:00] VITALS: BP 99/76
[2020-02-05] MEDS ORDERED: ACETAMINOPHEN TAB 650MG DOSE (2X325MG) PO ONE (06:00)
[2020-02-05] MEDS: BUDESONIDE 0.5 MG/2 ML INHALATION SUSPENSION INH SCH ×2 (07:39→19:22)
[2020-02-05] MEDS: LACTOBACILLUS ACIDOPHILUS CAP (BACID) PO SCH (08:11)
[2020-02-05] MEDS: MIDODRINE 2.5 MG TAB PO SCH ×3 (08:11→16:06)
[2020-02-05] MEDS: FOLIC ACID 1 MG TAB PO SCH (08:11)
[2020-02-05] MEDS: MAGNESIUM OXIDE 400 MG TAB (MAG-OX) PO SCH ×2 (08:11→22:22)
[2020-02-05] MEDS: MULTIVITAMINS/MINERALS THERAP 1 TAB PO SCH (08:11)
[2020-02-05] MEDS: ACETAMINOPHEN 500 MG TAB PO SCH ×2 (08:12→22:22)
[2020-02-05] MEDS: THIAMINE 100 MG TAB PO SCH (08:13)
[2020-02-05] MEDS: DOXYCYCLINE HYCLATE 100MG TABLET PO SCH ×2 (08:13→22:22)
[2020-02-05] MEDS: ENOXAPARIN 30MG/0.3ML SYRINGE (J1650 PER 10MG) SC SCH (08:13)
[2020-02-05] MEDS: NICOTINE 14 MG/24 HR TRANSDERMAL TD SCH (08:13)
[2020-02-05] MEDS: GABAPENTIN 100 MG CAP PO SCH (22:22)
[2020-02-06] MEDS: IPRATROPIUM 0.5MG/ALBUTEROL 2.5MG INH SOL UD 3ML (DUONEB) NEB SCH ×4 (01:37→19:30)
[2020-02-06 06:00] VITALS: BP 117/58
[2020-02-06] MEDS: BUDESONIDE 0.5 MG/2 ML INHALATION SUSPENSION INH SCH ×2 (08:05→19:30)
[2020-02-06] MEDS: MULTIVITAMINS/MINERALS THERAP 1 TAB PO SCH (08:22)
[2020-02-06] MEDS: FOLIC ACID 1 MG TAB PO SCH (08:22)
[2020-02-06] MEDS: DOXYCYCLINE HYCLATE 100MG TABLET PO SCH ×2 (08:22→21:54)
[2020-02-06] MEDS: MAGNESIUM OXIDE 400 MG TAB (MAG-OX) PO SCH ×2 (08:22→21:54)
[2020-02-06] MEDS: ACETAMINOPHEN 500 MG TAB PO SCH ×2 (08:22→21:53)
[2020-02-06] MEDS: THIAMINE 100 MG TAB PO SCH (08:22)
[2020-02-06] MEDS: MIDODRINE 2.5 MG TAB PO SCH ×3 (08:22→16:14)
[2020-02-06] MEDS: LACTOBACILLUS ACIDOPHILUS CAP (BACID) PO SCH (08:22)
[2020-02-06] MEDS: ENOXAPARIN 30MG/0.3ML SYRINGE (J1650 PER 10MG) SC SCH (08:23)
[2020-02-06] MEDS: NICOTINE 14 MG/24 HR TRANSDERMAL TD SCH (08:23)
[2020-02-06] MEDS: GABAPENTIN 100 MG CAP PO SCH (21:53)
[2020-02-07] MEDS: IPRATROPIUM 0.5MG/ALBUTEROL 2.5MG INH SOL UD 3ML (DUONEB) NEB SCH ×4 (02:15→18:13)
[2020-02-07 06:00] VITALS: BP 110/84
[2020-02-07] MEDS: BUDESONIDE 0.5 MG/2 ML INHALATION SUSPENSION INH SCH ×2 (06:31→18:12)
[2020-02-07] MEDS: DOXYCYCLINE HYCLATE 100MG TABLET PO SCH ×2 (08:56→21:48)
[2020-02-07] MEDS: MULTIVITAMINS/MINERALS THERAP 1 TAB PO SCH (08:56)
[2020-02-07] MEDS: MIDODRINE 2.5 MG TAB PO SCH ×3 (08:56→16:22)
[2020-02-07] MEDS: NICOTINE 14 MG/24 HR TRANSDERMAL TD SCH (08:57)
[2020-02-07] MEDS: ENOXAPARIN 30MG/0.3ML SYRINGE (J1650 PER 10MG) SC SCH (08:57)
[2020-02-07] MEDS: THIAMINE 100 MG TAB PO SCH (08:57)
[2020-02-07] MEDS: ACETAMINOPHEN 500 MG TAB PO SCH ×2 (08:57→21:48)
[2020-02-07] MEDS: LACTOBACILLUS ACIDOPHILUS CAP (BACID) PO SCH (08:57)
[2020-02-07] MEDS: MAGNESIUM OXIDE 400 MG TAB (MAG-OX) PO SCH ×2 (08:57→21:49)
[2020-02-07] MEDS: FOLIC ACID 1 MG TAB PO SCH (08:57)
[2020-02-07 12:17] LABS: BASO # 0.1 10^3/uL (0.0-0.2); BASO % 0.6 % (0.0-1.0); EOS # 0.3 10^3/uL (0.0-0.5); EOS % 2.2 % (0.0-3.0); HEMATOCRIT 39.9 % (36.0-47.0); LYMPH % 22.7 % (24.0-44.0); MEAN CORPUSCULAR HGB CONC 35.1 g/dl (32.0-36.5); MEAN CORPUSCULAR VOLUME 94.1 fl (80.0-96.0); MONO # 1.3 10^3/uL (0.0-0.8); MONO % 9.9 % (0.0-5.0); NEUTROPHILS # 8.5 10^3/uL (1.5-8.5); NEUTROPHILS % 63.2 % (36.0-66.0); PLATELET COUNT, AUTOMATED 241 10^3/uL (150-450); RED BLOOD COUNT 4.24 10^6/uL (4.00-5.40); WHITE BLOOD COUNT 13.4 10^3/uL (4.0-10.0)
[2020-02-07 12:41] LABS: ALBUMIN 2.9 GM/DL (3.2-5.2); ALT/SGPT 38 U/L (12-78); BILIRUBIN,TOTAL 0.4 MG/DL (0.2-1.0); BLOOD UREA NITROGEN 18 MG/DL (7-18); C REACTIVE PROTEIN QUANTITATIV 2.27 MG/DL (0.00-0.30); CALCIUM LEVEL 8.9 MG/DL (8.8-10.2); CARBON DIOXIDE LEVEL 30 MEQ/L (21-32); CHLORIDE LEVEL 102 MEQ/L (98-107); CREATININE FOR GFR 0.54 MG/DL (0.55-1.30); GLOMERULAR FILTRATION RATE > 60.0 (>45); GLUCOSE, FASTING 103 MG/DL (70-100); POTASSIUM SERUM 4.1 MEQ/L (3.5-5.1); SODIUM LEVEL 138 MEQ/L (136-145); TOTAL PROTEIN 6.7 GM/DL (6.4-8.2)
[2020-02-07 12:49] LABS: ERYTHROCYTE SEDIMENTATION RATE 42 mm/hr (0-30)
[2020-02-07] MEDS: GABAPENTIN 100 MG CAP PO SCH (21:48)
[2020-02-08 06:00] VITALS: BP 133/72
[2020-02-08] MEDS: IPRATROPIUM 0.5MG/ALBUTEROL 2.5MG INH SOL UD 3ML (DUONEB) NEB SCH ×3 (07:27→18:02)
[2020-02-08] MEDS: BUDESONIDE 0.5 MG/2 ML INHALATION SUSPENSION INH SCH ×2 (07:27→18:02)
[2020-02-08] MEDS: LACTOBACILLUS ACIDOPHILUS CAP (BACID) PO SCH (08:19)
[2020-02-08] MEDS: FOLIC ACID 1 MG TAB PO SCH (08:19)
[2020-02-08] MEDS: THIAMINE 100 MG TAB PO SCH (08:19)
[2020-02-08] MEDS: MAGNESIUM OXIDE 400 MG TAB (MAG-OX) PO SCH ×2 (08:19→19:39)
[2020-02-08] MEDS: ACETAMINOPHEN 500 MG TAB PO SCH ×2 (08:19→19:38)
[2020-02-08] MEDS: NICOTINE 14 MG/24 HR TRANSDERMAL TD SCH (08:19)
[2020-02-08] MEDS: ENOXAPARIN 30MG/0.3ML SYRINGE (J1650 PER 10MG) SC SCH (08:19)
[2020-02-08] MEDS: DOXYCYCLINE HYCLATE 100MG TABLET PO SCH (08:19)
[2020-02-08] MEDS: MULTIVITAMINS/MINERALS THERAP 1 TAB PO SCH (08:19)
[2020-02-08] MEDS: MIDODRINE 2.5 MG TAB PO SCH ×3 (08:19→16:14)
--- NOTE | 2020-02-08 17:05 | IPNPDOC ---
Text Note Date of Service The patient was seen on 02/08/20. NOTE Subjective: Feels well. Asking to go home. No pain. PHYSICAL EXAMINATION: Vitals: (see below) General: No acute distress, laying comfortably in bed. HEENT: Moist mucous membranes. Neck: No JVD or lymphadenopathy Cardiac: RRR, No murmurs. Chest wall abscess improving. No drainage, fluctuance. Pulm: Clear to auscultation b/l. No wheezing, rhonchi Abd: NT/ND + BS Ext: No edema or cyanosis LABORATORY DATA: See below. A/P 1. s/p AMS/hypotension - on midodrine 2. Abscess chest wall improving. cont doxy 3. +Bd cx on doxy; repeat bld cx negative 4. COPD stable 5. Schizophrenia -- psych on consult 6. h/o adrenal insufficiency DVT prophy: Lovenox Psych consulted for capacity; to select POA. Dr. Monge to see today. VS,Fishbone, I+O VS, Fishbone, I+O Vital Signs Date Time Temp Pulse Resp B/P (MAP) Pulse Ox O2 Delivery O2 Flow Rate FiO2 02/08/20 06:00 98.3 72 19 133/72 (92) 96 Room Air I&O- Last 24 Hours up to 6 AM 02/08/20 06:00 Intake Total 1440 ml Output Total 0 ml Balance 1440 ml KIT PINA MD Feb 08, 2020 17:04
[2020-02-08] MEDS: GABAPENTIN 100 MG CAP PO SCH (19:38)
[2020-02-09] MEDS: IPRATROPIUM 0.5MG/ALBUTEROL 2.5MG INH SOL UD 3ML (DUONEB) NEB SCH ×4 (01:08→18:16)
[2020-02-09 05:40] VITALS: BP 105/56
[2020-02-09] MEDS: BUDESONIDE 0.5 MG/2 ML INHALATION SUSPENSION INH SCH ×2 (07:32→18:16)
[2020-02-09] MEDS: ENOXAPARIN 30MG/0.3ML SYRINGE (J1650 PER 10MG) SC SCH (08:24)
[2020-02-09] MEDS: MIDODRINE 2.5 MG TAB PO SCH ×3 (08:25→17:39)
[2020-02-09] MEDS: FOLIC ACID 1 MG TAB PO SCH (08:25)
[2020-02-09] MEDS: ACETAMINOPHEN 500 MG TAB PO SCH ×2 (08:25→20:11)
[2020-02-09] MEDS: THIAMINE 100 MG TAB PO SCH (08:25)
[2020-02-09] MEDS: LACTOBACILLUS ACIDOPHILUS CAP (BACID) PO SCH (08:25)
[2020-02-09] MEDS: MULTIVITAMINS/MINERALS THERAP 1 TAB PO SCH (08:25)
[2020-02-09] MEDS: MAGNESIUM OXIDE 400 MG TAB (MAG-OX) PO SCH ×2 (08:25→20:12)
[2020-02-09] MEDS: NICOTINE 14 MG/24 HR TRANSDERMAL TD SCH (08:26)
[2020-02-09] MEDS: GABAPENTIN 100 MG CAP PO SCH (20:11)
[2020-02-10] MEDS: IPRATROPIUM 0.5MG/ALBUTEROL 2.5MG INH SOL UD 3ML (DUONEB) NEB SCH ×4 (01:37→20:40)
[2020-02-10 06:00] VITALS: BP 123/58
[2020-02-10] MEDS: BUDESONIDE 0.5 MG/2 ML INHALATION SUSPENSION INH SCH ×2 (07:54→20:40)
[2020-02-10] MEDS: ACETAMINOPHEN 500 MG TAB PO SCH ×2 (09:00→21:14)
[2020-02-10] MEDS: NICOTINE 14 MG/24 HR TRANSDERMAL TD SCH (09:00)
[2020-02-10] MEDS: ENOXAPARIN 30MG/0.3ML SYRINGE (J1650 PER 10MG) SC SCH (09:19)
[2020-02-10] MEDS: THIAMINE 100 MG TAB PO SCH (09:19)
[2020-02-10] MEDS: LACTOBACILLUS ACIDOPHILUS CAP (BACID) PO SCH (09:19)
[2020-02-10] MEDS: MIDODRINE 2.5 MG TAB PO SCH ×3 (09:20→17:27)
[2020-02-10] MEDS: MULTIVITAMINS/MINERALS THERAP 1 TAB PO SCH (09:20)
[2020-02-10] MEDS: FOLIC ACID 1 MG TAB PO SCH (09:20)
[2020-02-10] MEDS: MAGNESIUM OXIDE 400 MG TAB (MAG-OX) PO SCH ×2 (09:20→21:15)
[2020-02-10] MEDS: GABAPENTIN 100 MG CAP PO SCH (21:14)
[2020-02-11] VITALS (57 sets, daily range): BP systolic 50–137; BP diastolic 22–74
[2020-02-11] MEDS: IPRATROPIUM 0.5MG/ALBUTEROL 2.5MG INH SOL UD 3ML (DUONEB) NEB SCH ×4 (02:00→20:04)
[2020-02-11] MEDS: BUDESONIDE 0.5 MG/2 ML INHALATION SUSPENSION INH SCH ×2 (06:04→20:04)
--- NOTE | 2020-02-11 07:31 | MHIPNPDOC ---
[facility] Progress Note Progress Note Subjective HPI: Anastacia presents today from previous consultation several weeks ago for capacity and was found bizarre and wandering after becoming encephalopathic from not taking care of her medical problems. A re-consultation was requested for ability to pick a POA and ability to live independently. Additionally, the chart reveals a need to review for a level 2 screening. Patient was met with; however, she is still fairly flat with little insight and no memory. She continues to stay but does not know why she is here and is unable to reason any parts. MEDICAL HISTORY: Patient reportedly has a history of schizophrenia but is primarily demented. Objective Appearance: Fair hygiene. Behavior: Pleasant. Engaged. Poor eyes alert and orientate. Cooperative with good eye contact. Affect: Flat affect. Memory: Recent memory is impaired. Thought Content: No evidence of aggressive or homicidal ideation. No evidence of suicidal ideation. No evidence of delusions. No thoughts of self harm. No psychotic processes elicited. Judgement: Poor. Insight: Poor. Assessment F03.91 Unspecified dementia with behavioral disturbance Plan The patient at this time passes a level 2 screening as she does not require inpatient hospitalization. Primary problem is dementia at this time likely from a long history of smoking tobacco and other recreational substances leading to likely vascular dementia The patient is outside her capacity to appoint a POA or to live independently. Her condition is quite static from the last examination. It would be appropriate to have a competency determination by a judicial officer or have guardianship appointed by a court as it appears that her situation will not improve much and capacity is only a short-term issue. At this time, I do not have enough information to understand the risks and benefits of her POA situation as well as living independently to correctly ascertain whether she has capacity at her level. Its unclear if the attending physician believes she does or not at this time, psychiatry just signed off this time. Vital Signs Vital Signs Date Time Temp Pulse Resp B/P (MAP) Pulse Ox O2 Delivery O2 Flow Rate FiO2 02/11/20 06:00 97.7 85 18 104/57 (73) 91 Room Air Current Medications Current Medications Medications (Trade) Dose Ordered Sig/Rowena Route PRN Reason Start Time Stop Time Status Last Admin Dose Admin Acetaminophen (Tylenol Tab) 500 mg BID PO 01/29/20 21:00 02/10/20 21:14 Albuterol Sulfate (Proventil Neb) 2.5 mg Q6H PRN INH SHORTNESS OF BREATH 01/29/20 19:00 Albuterol/ Ipratropium (Duoneb (Ipr 0.5mg/Alb 2.5mg)) 3 ml RQ6H NEB 01/29/20 20:00 02/11/20 06:04 Budesonide (Pulmicort) 0.5 mg RBID INH 01/29/20 20:00 02/11/20 06:04 Doxycycline Hyclate (Vibramycin) 100 mg BID PO 01/29/20 21:00 02/08/20 20:59 DC 02/08/20 08:19 Enoxaparin Sodium (Lovenox) 30 mg DAILY SC 01/30/20 09:00 02/10/20 09:19 Folic Acid (Folic Acid) 1 mg DAILY PO 01/30/20 09:00 02/10/20 09:20 Gabapentin (Neurontin) 100 mg QHS PO 01/29/20 21:00 02/10/20 21:14 Home Med (Med Rec Complete!) ASDIRECTED XX 01/29/20 20:15 01/29/20 20:06 DC Lactobacillus Acidophilus (Bacid) 1 ea DAILY PO 01/30/20 09:00 02/10/20 09:19 Lorazepam (Ativan) 2 mg ASDIRECTED PRN IV SEE PROTOCOL 01/29/20 15:00 01/29/20 15:07 DC Magnesium Hydroxide (Milk Of Magnesia) 30 ml DAILYPRN PRN PO CONSTIPATION 01/29/20 19:00 Magnesium Oxide (Mag-Ox) 400 mg BID PO 01/29/20 21:00 02/10/20 21:15 Midodrine (Proamatine) 2.5 mg TID@08,12,16 PO 01/30/20 08:00 02/10/20 17:27 Miscellaneous (Unresolved Clarification Entry) SEE LABEL COMMENTS DAILY XX 02/10/20 09:00 Multivitamins (Theragram-M) 1 tab DAILY PO 01/30/20 09:00 02/10/20 09:20 Nicotine (Nicoderm Cq 14mg) 1 patch DAILY TD 01/30/20 09:00 02/08/20 08:19 Thiamine HCl (Thiamine HCl) 100 mg DAILY PO 01/30/20 09:00 02/10/20 09:19 Trimethoprim/ Sulfamethoxazole (Bactrim Ds, Septra Ds 160mg/ 800mg) 1 tab BID PO 01/29/20 21:00 01/29/20 20:22 DC 01/29/20 20:20 Allergies Coded Allergies: No Known Allergies (Unverified , 03/27/19) JOVANY RUSSELL DO Feb 11, 2020 07:31
[2020-02-11] MEDS: ACETAMINOPHEN 500 MG TAB PO SCH ×2 (09:00→19:55)
[2020-02-11] MEDS: NICOTINE 14 MG/24 HR TRANSDERMAL TD SCH (09:00)
[2020-02-11] MEDS: ENOXAPARIN 30MG/0.3ML SYRINGE (J1650 PER 10MG) SC SCH (09:00)
[2020-02-11] MEDS: FOLIC ACID 1 MG TAB PO SCH (10:16)
[2020-02-11] MEDS: LACTOBACILLUS ACIDOPHILUS CAP (BACID) PO SCH (10:16)
[2020-02-11] MEDS: MULTIVITAMINS/MINERALS THERAP 1 TAB PO SCH (10:16)
[2020-02-11] MEDS: MAGNESIUM OXIDE 400 MG TAB (MAG-OX) PO SCH ×2 (10:16→19:55)
[2020-02-11] MEDS: THIAMINE 100 MG TAB PO SCH (10:16)
[2020-02-11] MEDS: MIDODRINE 2.5 MG TAB PO SCH ×3 (10:18→17:26)
[2020-02-11] MEDS ORDERED: NS 1,000 ML IV ONE (10:30)
[2020-02-11] MEDS ORDERED: PHENYLEPHRINE 10MG/ML 1ML VIAL (J2370 PER 1) As Ordered ONE (10:44)
[2020-02-11 11:10] LABS: ABG BASE EXCESS 0.8 (-2.0-2.0); ABG HCO3 26.2 MEQ/L (22.0-26.0); ABG O2 SATURATION 91.5 % (95.0-99.0); ABG PARTIAL PRESSURE CO2 44.5 mmHg (35.0-45.0); ABG PARTIAL PRESSURE O2 60.2 mmHg (75.0-100.0); ABG STANDARD HCO3 25.1 MEQ/L (22.0-26.0); ABG TOTAL CO2 27.5 MEQ/L (23.0-31.0); ABG pH (ARTERIAL) 7.387 UNITS (7.350-7.450)
[2020-02-11] MEDS ORDERED: HYDROCORTISONE 100 MG/2 ML VIAL (J1720 PER 1) IV ONE (11:15)
[2020-02-11] MEDS ORDERED: PIPERACILLIN/TAZOBACTAM SOD 3.375 GM in D5W MINI-BAG PLUS 50 ML IV ONE ×2 (11:15→11:30)
[2020-02-11 11:18] LABS: BASO # 0.1 10^3/uL (0.0-0.2); BASO % 0.6 % (0.0-1.0); EOS # 0.3 10^3/uL (0.0-0.5); EOS % 2.3 % (0.0-3.0); HEMATOCRIT 39.4 % (36.0-47.0); HEMOGLOBIN 13.1 g/dl (12.0-15.5); LYMPH # 2.8 10^3/uL (1.5-5.0); LYMPH % 23.5 % (24.0-44.0); MEAN CORPUSCULAR HGB CONC 33.2 g/dl (32.0-36.5); MEAN CORPUSCULAR VOLUME 96.1 fl (80.0-96.0); MONO # 1.2 10^3/uL (0.0-0.8); NEUTROPHILS # 7.5 10^3/uL (1.5-8.5); NEUTROPHILS % 62.7 % (36.0-66.0); PLATELET COUNT, AUTOMATED 212 10^3/uL (150-450); WHITE BLOOD COUNT 11.9 10^3/uL (4.0-10.0)
[2020-02-11] MEDS ORDERED: NOREPINEPHRINE 4 MG/4 ML AMP As Ordered ONE (11:25)
[2020-02-11 11:28] LABS: INR 1.01; PROTHROMBIN TIME 13.5 SECONDS (11.8-14.0)
[2020-02-11] MEDS: NOREPINEPHRINE BITARTRATE 8 MG in D5W 492 ML IV SCH ×3 (11:34→23:00)
[2020-02-11 11:38] LABS: ALBUMIN 2.6 GM/DL (3.2-5.2); ALT/SGPT 33 U/L (12-78); BILIRUBIN,TOTAL 0.5 MG/DL (0.2-1.0); BLOOD UREA NITROGEN 20 MG/DL (7-18); C REACTIVE PROTEIN QUANTITATIV 0.42 MG/DL (0.00-0.30); CALCIUM LEVEL 8.5 MG/DL (8.8-10.2); CARBON DIOXIDE LEVEL 28 MEQ/L (21-32); CHLORIDE LEVEL 106 MEQ/L (98-107); CREATININE FOR GFR 0.44 MG/DL (0.55-1.30); GLOMERULAR FILTRATION RATE > 60.0 (>45); GLUCOSE, FASTING 108 MG/DL (70-100); POTASSIUM SERUM 3.7 MEQ/L (3.5-5.1); SODIUM LEVEL 139 MEQ/L (136-145); TOTAL PROTEIN 6.3 GM/DL (6.4-8.2)
[2020-02-11 11:41] LABS: CK-MB VALUE MASS < 1.0 NG/ML (<3.6); CPK CREATINE PHOSPHOKINASE 31 U/L (26-192); MB/CK RELATIVE INDEX 3.23 (< OR =4); TROPONIN I < 0.02 NG/ML (< 0.10)
--- NOTE | 2020-02-11 12:10 | IPNPDOC ---
Text Note Date of Service The patient was seen on 02/11/20. NOTE Subjective: Rapid response call for hypotension. Pt denied CP/SOB/palpitations. Has new non productive cough that started last night. No N/V/ABd pain. PHYSICAL EXAMINATION: Vitals: (see below) General: No acute distress, laying comfortably in bed. HEENT: Moist mucous membranes. Neck: No JVD or lymphadenopathy Cardiac: RRR, No murmurs. Chest wall abscess now draining pus Pulm: Diminshed R>L. Mild exp wheezing. No rhonchi. No stridor or use of accessory muscles. Abd: NT/ND + BS Ext: No edema or cyanosis Alert; no focal deficits. Answering questions appropriately. LABORATORY DATA: See below. A/P 1. Adrenal Crisis with severe hypotension 2/2 RUL PNA and chest wall abscess. Transferred to ICU. Iniitlaly started on blanca; changed to levophed after port accessed. IVF, IV hydrocortisone, Vanc/Zosyn, check blood, wound cx. Discussed with Dr. Blackmon/Dr. Vogel who will see pt. 2. COPD exacerbation 2/2 above - steroids nebs 3. Schizophrenia - psych on consult DVT prophy: Lovenox Updated daughter, Bety, who would like pt to remain DNR/DNI. VS,Fishbone, I+O VS, Fishbone, I+O Laboratory Tests 02/11/20 10:54 Vital Signs Date Time Temp Pulse Resp B/P (MAP) Pulse Ox O2 Delivery O2 Flow Rate FiO2 02/11/20 11:34 84 18 77/52 (60) 98 Nasal Cannula 2.0 02/11/20 06:00 97.7 I&O- Last 24 Hours up to 6 AM 02/11/20 05:59 Intake Total 2019 ml Balance 2019 ml KIT PINA MD Feb 11, 2020 12:09
[2020-02-11] MEDS: PIPERACILLIN/TAZOBACTAM SOD 3.375 GM in D5W MINI-BAG PLUS 50 ML IV SCH ×2 (12:44→17:26)
[2020-02-11] MEDS ORDERED: LIDOCAINE 1% MDV 20ML VIAL SC ONE (13:00)
[2020-02-11] MEDS: HYDROCORTISONE 100 MG/2 ML VIAL (J1720 PER 1) IV SCH ×2 (14:00→17:26)
[2020-02-11] MEDS ORDERED: VANCOMYCIN HCL 1,000 MG, VIAL MATE ADAPTER 1 EACH in D5W 250 ML IV ONE (14:00)
--- NOTE | 2020-02-11 15:07 | POST-OPPD ---
Postoperative Procedure Note Date Of Procedure: Feb 11, 2020 PREOPERATIVE DIAGNOSIS: subcutaneous abscess, midchest POSTOPERATIVE DIAGNOSIS: infected sebaceous cyst, midchest FINDINGS: retained sebum, small amount of purulent drainage, posterior wall of cyst inctact PROCEDURE: incision and drainage/unroofing of abscess sebaceous cyst SURGEON: Clint Dee MD BRAND COORDINATOR: ANESTHESIA: local anesthesia 1% lidocaine SPECIMENS: none ESTIMATED BLOOD LOSS: minimal Dictation no: [id number] CLINT DEE MD Feb 11, 2020 15:07
[2020-02-11 17:44] LABS: CK-MB VALUE MASS 5.2 NG/ML (<3.6); MB/CK RELATIVE INDEX 6.84 (< OR =4); TROPONIN I 1.11 NG/ML (< 0.10)
[2020-02-11] MEDS: ASPIRIN 81 MG ENTERIC TAB PO SCH (18:37)
[2020-02-11] MEDS: GABAPENTIN 100 MG CAP PO SCH (19:55)
[2020-02-11 20:48] LABS: ALBUMIN 3.5 GM/DL (3.2-5.2); ALT/SGPT 100 U/L (12-78); BILIRUBIN,TOTAL 0.5 MG/DL (0.2-1.0); BLOOD UREA NITROGEN 19 MG/DL (7-18); CARBON DIOXIDE LEVEL 27 MEQ/L (21-32); CHLORIDE LEVEL 103 MEQ/L (98-107); CK-MB VALUE MASS 12.6 NG/ML (<3.6); CPK CREATINE PHOSPHOKINASE 105 U/L (26-192); GLOMERULAR FILTRATION RATE > 60.0 (>45); GLUCOSE, FASTING 298 MG/DL (70-100); SODIUM LEVEL 137 MEQ/L (136-145); TOTAL PROTEIN 8.1 GM/DL (6.4-8.2); TROPONIN I 2.44 NG/ML (< 0.10)
[2020-02-11] MEDS: NS 1,000 ML IV SCH (21:00)
[2020-02-11] MEDS: VANCOMYCIN HCL 1,000 MG, VIAL MATE ADAPTER 1 EACH in D5W 250 ML IV SCH (22:07)
[2020-02-12] VITALS (105 sets, daily range): BP systolic 62–116; BP diastolic 42–74
[2020-02-12] MEDS: HYDROCORTISONE 100 MG/2 ML VIAL (J1720 PER 1) IV SCH ×4 (01:27→19:37)
[2020-02-12] MEDS: NOREPINEPHRINE BITARTRATE 8 MG in D5W 492 ML IV SCH ×5 (01:30→22:45)
[2020-02-12] MEDS: IPRATROPIUM 0.5MG/ALBUTEROL 2.5MG INH SOL UD 3ML (DUONEB) NEB SCH ×4 (02:00→20:13)
[2020-02-12 03:38] LABS: MEAN CORPUSCULAR HEMOGLOBIN 32.1 pg (27.0-33.0); MEAN CORPUSCULAR HGB CONC 34.6 g/dl (32.0-36.5); MEAN CORPUSCULAR VOLUME 92.9 fl (80.0-96.0); PLATELET COUNT, AUTOMATED 272 10^3/uL (150-450); RED BLOOD COUNT 4.95 10^6/uL (4.00-5.40)
[2020-02-12 03:57] LABS: HEMOGLOBIN 15.9 g/dl (12.0-15.5)
[2020-02-12 04:23] LABS: ALBUMIN 3.4 GM/DL (3.2-5.2); ALT/SGPT 104 U/L (12-78); BILIRUBIN,TOTAL 0.5 MG/DL (0.2-1.0); BLOOD UREA NITROGEN 17 MG/DL (7-18); CALCIUM LEVEL 8.5 MG/DL (8.8-10.2); CARBON DIOXIDE LEVEL 26 MEQ/L (21-32); CHLORIDE LEVEL 104 MEQ/L (98-107); CK-MB VALUE MASS 19.1 NG/ML (<3.6); CORTISOL AM 70.2 UG/DL (4.3-22.4); CPK CREATINE PHOSPHOKINASE 146 U/L (26-192); CREATININE FOR GFR 0.69 MG/DL (0.55-1.30); GLOMERULAR FILTRATION RATE > 60.0 (>45); GLUCOSE, FASTING 244 MG/DL (70-100); MB/CK RELATIVE INDEX 13.08 (< OR =4); POTASSIUM SERUM 3.8 MEQ/L (3.5-5.1); SODIUM LEVEL 140 MEQ/L (136-145); THYROID STIMULATING HORMONE 0.917 uIU/ML (0.358-3.740); TOTAL PROTEIN 7.8 GM/DL (6.4-8.2); TROPONIN I 3.53 NG/ML (< 0.10)
[2020-02-12] MEDS: PIPERACILLIN/TAZOBACTAM SOD 3.375 GM in D5W MINI-BAG PLUS 50 ML IV SCH ×5 (05:34→17:54)
[2020-02-12] MEDS: NS 1,000 ML IV SCH ×4 (05:34→19:38)
[2020-02-12] MEDS: BUDESONIDE 0.5 MG/2 ML INHALATION SUSPENSION INH SCH ×2 (07:15→20:13)
[2020-02-12] MEDS ORDERED: NOREPINEPHRINE BITARTRATE 8 MG in D5W 492 ML IV SCH (07:57)
[2020-02-12] MEDS: ACETAMINOPHEN 500 MG TAB PO SCH ×3 (08:33→19:36)
[2020-02-12] MEDS: MULTIVITAMINS/MINERALS THERAP 1 TAB PO SCH (08:33)
[2020-02-12] MEDS: NICOTINE 14 MG/24 HR TRANSDERMAL TD SCH ×2 (08:34→08:44)
[2020-02-12] MEDS: MAGNESIUM OXIDE 400 MG TAB (MAG-OX) PO SCH ×2 (08:35→19:37)
[2020-02-12] MEDS: THIAMINE 100 MG TAB PO SCH (08:36)
[2020-02-12] MEDS: LACTOBACILLUS ACIDOPHILUS CAP (BACID) PO SCH (08:37)
[2020-02-12] MEDS: ASPIRIN 81 MG ENTERIC TAB PO SCH (08:37)
[2020-02-12] MEDS: MIDODRINE 2.5 MG TAB PO SCH ×3 (08:37→15:56)
[2020-02-12] MEDS: FOLIC ACID 1 MG TAB PO SCH (08:37)
[2020-02-12] MEDS: ENOXAPARIN 40MG/0.4ML SYRINGE (J1650 PER 10MG) SC SCH ×2 (08:38→19:37)
[2020-02-12 09:05] LABS: CK-MB VALUE MASS 19.1 NG/ML (<3.6); MB/CK RELATIVE INDEX 13.74 (< OR =4); TROPONIN I 3.43 NG/ML (< 0.10)
[2020-02-12] MEDS: VANCOMYCIN HCL 1,000 MG, VIAL MATE ADAPTER 1 EACH in D5W 250 ML IV SCH ×2 (09:59→22:00)
[2020-02-12 12:05] LABS: CK-MB VALUE MASS 20.5 NG/ML (<3.6); MB/CK RELATIVE INDEX 14.54 (< OR =4); TROPONIN I 3.22 NG/ML (< 0.10)
--- NOTE | 2020-02-12 12:05 | IPNPDOC ---
Date Seen The patient was seen on 02/12/20. Progress Note Progress Note dictated A/P Septic Shock Chest Wall abscess RUL Pneumonia Adrenal Crisis type 2 NSTEMI demand-mediated ischemia Schizophrenia plan: continue stress dose hydrocortisone, iv vanco, zosyn, and await abscess c&s.s/p surgical I&D. de-escalate abx once cultures are available cardiology Dr. Germain consulted for NSTEMI on ASA and lipitor to assist in mgt and decision for CAD evaluation either coronary angiogram and transfer to [facility] as an inpatient once sepsis resolves vs outpt stress test continue ivfluids until off levophed iv gtt. transfer to pcu once off levophed iv gtt. VS, I&O, 24H, Fishbone Vital Signs/I&O Vital Signs Date Time Temp Pulse Resp B/P (MAP) Pulse Ox O2 Delivery O2 Flow Rate FiO2 02/12/20 11:05 97 93 Room Air 02/12/20 11:00 77/54 (62) 02/12/20 08:00 97.9 19 02/11/20 17:30 1.0 I&O- Last 24 Hours up to 6 AM 02/12/20 06:00 Intake Total 6006 ml Output Total 2125 ml Balance 3881 ml Laboratory Data 24H LABS Laboratory Tests 2 02/11/20 12:50: Urine Color STRAW, Urine Appearance CLEAR, Urine pH 7.0, Urine Specific [place] 1.003, Urine Protein NEGATIVE, Urine Glucose (UA) 1+H, Urine Ketones NEGATIVE, Urine Blood NEGATIVE, Urine Nitrite NEGATIVE, Urine Bilirubin NEGATIVE, Urine Urobilinogen 0.2, Urine Leukocyte Esterase NEGATIVE, Urine WBC (Auto) 0, Urine RBC (Auto) 0, Urine Hyaline Casts (Auto) 0, Urine Bacteria (Auto) NEGATIVE, Urine Squamous Epithelial Cells 0, Urine Sperm (Auto) 02/11/20 16:49: Total Creatine Kinase 76#, Creatine Kinase MB 5.2H, Creatine Kinase MB Relative Index 6.84H, Troponin I 1.11#H 02/11/20 20:06: Total Creatine Kinase 105, Creatine Kinase MB 12.6H, Creatine Kinase MB Relative Index 12.00H, Troponin I 2.44#*H, Anion Gap 7L, Glomerular Filtration Rate > 60.0, Calcium Level 9.0, Total Bilirubin 0.5, Aspartate Amino Transf (AST/SGOT) 79H, Alanine Aminotransferase (ALT/SGPT) 100H, Alkaline Phosphatase 94, Total Protein 8.1#, Albumin 3.5#, Albumin/Globulin Ratio 0.8L 02/12/20 03:28: Total Creatine Kinase 146, Creatine Kinase MB 19.1H, Creatine Kinase MB Relative Index 13.08H, Troponin I 3.53#*H, Anion Gap 10, Glomerular Filtration Rate > 60.0, Calcium Level 8.5L, Total Bilirubin 0.5, Aspartate Amino Transf (AST/SGOT) 72H, Alanine Aminotransferase (ALT/SGPT) 104H, Alkaline Phosphatase 92, Total Protein 7.8, Albumin 3.4, Albumin/Globulin Ratio 0.8L, Nucleated Red Blood Cells % (auto) 0.0, Thyroid Stimulating Hormone (TSH) 0.917, Cortisol AM Sample 70.2H 02/12/20 08:02: Total Creatine Kinase 139, Creatine Kinase MB 19.1H, Creatine Kinase MB Relative Index 13.74H, Troponin I 3.43*H 02/12/20 10:08: 02/12/20 10:50: CBC/BMP Laboratory Tests 02/11/20 20:06 02/12/20 03:28 Microbiology Microbiology 02/11/20 Gram Stain - Final, Resulted 02/11/20 Wound Culture, Resulted Pending 02/11/20 Blood Culture - Preliminary, Resulted 02/11/20 Blood Culture - Preliminary, Resulted No growth after 24 hours . All specim... 02/07/20 Blood Culture - Preliminary, Resulted No Growth after 72 hours. All specime... 02/07/20 Blood Culture - Preliminary, Resulted No Growth after 72 hours. All specime... ALIN COHEN MD Feb 12, 2020 12:05
[2020-02-12 12:37] LABS: BASO # 0.1 10^3/uL (0.0-0.2); BASO % 0.6 % (0.0-1.0); EOS # 0.1 10^3/uL (0.0-0.5); EOS % 0.8 % (0.0-3.0); HEMATOCRIT 55.3 % (36.0-47.0); HEMOGLOBIN 18.6 g/dl (12.0-15.5); LYMPH # 2.5 10^3/uL (1.5-5.0); LYMPH % 21.7 % (24.0-44.0); MEAN CORPUSCULAR HEMOGLOBIN 32.1 pg (27.0-33.0); MEAN CORPUSCULAR HGB CONC 33.6 g/dl (32.0-36.5); MEAN CORPUSCULAR VOLUME 95.3 fl (80.0-96.0); MONO # 0.8 10^3/uL (0.0-0.8); MONO % 6.9 % (0.0-5.0); NEUTROPHILS # 8.1 10^3/uL (1.5-8.5); NEUTROPHILS % 69.7 % (36.0-66.0); PLATELET COUNT, AUTOMATED 218 10^3/uL (150-450); WHITE BLOOD COUNT 11.6 10^3/uL (4.0-10.0)
--- NOTE | 2020-02-12 14:05 | CR ---
DATE OF CONSULTATION: 02/11/[address] Rodo Ceron from the hospitalist service. CHIEF COMPLAINT: Mid chest wall subcutaneous abscess. HISTORY OF PRESENT ILLNESS: Ms. 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 She has been admitted into the hospital since 01/12/2020 for confusion. She has a known area of infection on her mid chest wall area which seems to have been getting better. She was transferred to the intensive care unit (ICU) when she was noted to be hypotensive and they were noting some purulent drainage on this subcutaneous cyst. I am being asked to evaluate the wound and possibly incise and drain the area of the abscess. Patient, aside from just saying yes or no, was not giving much details from her history and so much of the history was taken either from the nurse or from the electronic records that are available. Apparently, the nurse who has been taking care of her has noted purulent drainage and then became bloody, this was more cystic in appearance and continues to drain a small amount of bloody fluid. She currently is on multiple antibiotics. Also, has been recognized to have possibly ongoing pneumonia. PAST MEDICAL HISTORY: As mentioned, history of small-cell lung cancer right upper lobe status post chemotherapy on active surveillance, history of schizophrenia, history of adrenal insufficiency, history of COPD. PAST SURGICAL HISTORY: Patient has a left chest wall port. REVIEW OF SYSTEMS: Could not be performed due to patients confusion. PHYSICAL EXAMINATION: Patient is seen fairly comfortable laying on her bed, she is in the ICU. Her blood pressure is noted to be slightly low, she is on 20 mcg of Levophed currently. She nods, answers yes or no to questions appropriately. Other than that, does not provide much details nor converse well. Patient is of slim build, does not seem to be in any distress. She is normocephalic, mildly pale palebral conjunctivae, lips and mucosa appear mildly dry. Patient is tachycardic with regular rhythm, no murmurs appreciated. Lungs are clear to auscultation bilaterally. She has a left chest wall port that is being used and accessed. At the mid sternal level on the lower chest is a real thin area about 3 x 1 cm with brown or purplish discolored skin slightly thinned out. Across the medial area is about a 3 or 4 mm opening with bloody drainage. There is no associated cellulitis nor induration. No relevant imaging studies. CURRENT LABORATORIES: Include white cell count of 11.9, the previous one was 13.4 on 02/07/2020, hemoglobin of 13, hematocrit of 39, platelet count is 212. Electrolytes are normal. BUN of 20, creatinine 0.4, glucose is 108, albumin is 2.6. IMPRESSION AND PLAN: Subcutaneous abscess from sebaceous cyst in the mid chest. I do not think this is the cause of the patients hypotension, even her being chronically adrenally insufficient. There is no associated cellulitis and probably has some just localized abscess. I plan to perform an incision, drainage/unroofing of the abscess under local anesthesia. Consent has been obtained from the patient. SHALA
--- NOTE | 2020-02-12 17:30 | CR ---
DATE OF CONSULTATION: 02/12/2020 I was asked by Dr. Rodo Ceron to see Mrs. Simmons because of hypotension and elevated troponin. Mrs. Simmons is previously unknown to me. She is a 64-year-old female who was admitted originally on January 11 for hypotension in setting of presumptive pneumonia and chest wall abscess related to most likely infected sebaceous cyst. She was initially very hypotensive and required pressor support, but eventually was improving and was transferred from intensive care setting all the way to standard medical floor, where she did fine until yesterday she was found to be remarkably hypotensive. She was brought back to intensive care unit (ICU). Her initial ECG did not reveal any obvious ST-T abnormalities, and it as felt that her presentation was consistent with adrenal insufficiency, which was known at that point. Unfortunately, the administration of high-dose steroids did not bring any immediate improvement, and she was started on pressors. Her cardiac enzymes became elevated. The initial one that was drawn yesterday mooring was normal, but her troponin at 1649 was 1.1 at 10, at 8 o'clock in the evening was 2.4, and at 3:30 this morning is 3.5. She denied any chest discomfort throughout. An echocardiogram that was performed emergently yesterday evening, interpreted by myself, revealed technically very limited study, but there was grossly preserved left ventricular (LV) systolic function without any obvious wall motion abnormalities. There was no significant valvular disease. It was felt that her central venous pressure was very low, as the inferior vena cava (IVC) was of very small caliber and virtually completely collapsing with inspiration. Overnight she was given fluids and continued with pressors and continued to be quite hypotensive. She continued to deny any chest discomfort. This morning at bedside, patient answers questions with single or two words only. She denies any chest pain. She denies any shortness of breath and tells me that she is feeling well. History taking was somewhat challenging as patient was eating breakfast during my visit. She did not seem to be in any distress. She firmly denies any chest discomfort yesterday or today. PAST MEDICAL HISTORY: 1. History of lung cancer. It is unclear what form of treatment she underwent. 2. History of hypotension, believed to be due to adrenal insufficiency. 3. Chronic obstructive pulmonary disease (COPD). 4. Schizophrenia. PAST SURGICAL HISTORY: Port-A-Cath placement. Unclear whether other surgeries were performed. None that patient admits to. SOCIAL HISTORY: Patient tells me that she lives alone. She was never . She has two children. She is an active smoker. Denies significant alcohol. FAMILY HISTORY: Patient unable to provide any details. REVIEW OF SYSTEMS: Currently patient denies any chills, any pain anywhere, specifically denies any chest discomfort. She denies any dyspnea, wheezing, abdominal pain, nausea, vomiting, or diarrhea. The rest of review of systems is negative. PHYSICAL EXAMINATION: Patient is a 64-year-old slim female. Appears to be quite comfortable in no apparent distress. Somewhat avidly eating her breakfast. The last set of vital signs showed a blood pressure 95/63, heart rate in 90s, saturation 93% on room air, and her rectal temperature this morning was 99.3. Fluid balance yesterday was +3 liters. She received about 43 mL of fluid yesterday but made over 1100 mL of urine yesterday and over a liter already today. Weight was recorded 45.5 kg. She is certainly alert. She is oriented times three. Her jugular venous pressure does not look elevated. Lungs are remarkably clear to auscultation. I do not appreciate any crackles, wheezing, or rhonchi. Heart exam reveals somewhat muffled heart sounds but without obvious gallop, rub, or murmur. There is a Port-A-Cath in the left upper chest, and there is coverage over the incised sebaceous cyst over left lower sternal area. Abdomen is soft without obvious tenderness or guarding. Bowel sounds are present. I do not appreciate any hepatosplenomegaly. Extremities are free of edema. Good peripheral pulses. No trophic defects. I do not appreciate any skin lesions. Neurologically, she moves freely all four extremities without any obvious focal deficit. LABORATORY DATA: CBC this morning reveals WBC count 29,000, hemoglobin 15.9, hematocrit 46, and platelet count 272,000. Her last sedimentation rate was from February 06 and was 42. Basic metabolic panel is normal with the exception of glucose 244. Liver function tests are elevated. AST 72, ALT 104. CK this morning was 146 with CK-MB 19 and troponin 3.5. TSH was 0.9 and cortisol this morning was 70. Albumin 3.4. Urinalysis was 1+ glucose. Otherwise negative for protein or blood. Her ECGs, yesterday she had several. All revealed sinus rhythm, and the last ECG yesterday late afternoon reveals rather diffuse ST-segment depressions. An echocardiogram as per history of present illness. She had a chest x-ray yesterday that was suggestive of possible pneumonia in right upper lobe. CURRENT MEDICATIONS: - norepinephrine drip - vancomycin - aspirin 81 mg a day - hydrocortisone 50 mg every 6 - Piptaz every 4 hours. - She is receiving multivitamin. - folic acid - nicotine patch - midodrine 2.5 mg three times a day - gabapentin - Pulmicort infusion - albuterol as needed ASSESSMENT AND PLAN: Mrs. Simmons is a 64-year-old female without prior known coronary artery disease who presented with some form of infection at this point a month ago and was initially medically stabilized, but now there was a sudden deterioration in her condition with severe hypotension, even though it was relatively asymptomatic. She responded only to vigorous hydration and administration of pressors, and she still requires high-dose pressors for blood pressure support. But she continues to have good urine output, her mentation is intact and there are no obvious signs of organ hypoperfusion. There is evidence for a non-ST elevation myocardial infarction. It is unclear to me whether this is type 1 or type 2. She denies any chest discomfort, and there are rather diffuse ST-segment depressions on the EKG yesterday evening. So far she received only aspirin. She certainly cannot receive any beta blockers considering the hypotension, but I do believe that we can increase the dose of anticoagulation to full dose of Lovenox to provide better coverage. I am going to get a followup EKG this morning. I believe that we can attempt to taper her pressors down, because even though she is relatively hypotensive, it is remarkably well tolerated, and she is essentially asymptomatic. Hopefully, the whole presentation was triggered by infection, and if that should be due to the infected sebaceous cyst or it should be due to the pulmonary infection, with antibiotics her condition should gradually improve. She is DO NOT INTUBATE, DO NOT RESUSCITATE, and due to her mental condition the communication with her is somewhat challenging, even though she seems to answer questions appropriate. After her acute illness is stabilized, we will have to decide about long-term evaluation for her cardiac status. At this point, I believe that coronary angiography looks likely in her future. SHALA
--- NOTE | 2020-02-12 18:02 | IPN ---
DATE: 02/12/2020 SUBEJCTIVE: Patient seen and examined at the bedside. Chart has been reviewed. Per nursing, patient has had adequate urine output of 2.3 liters overnight. She has had a total of 7.5 liters since yesterday. She has remained afebrile. No complaint of chills, cough, or shortness of breath. This morning patient's mean arterial pressure remains at 60-65 with no complaints of lightheadedness or dizziness. Despite positive troponin of 3.53, patient denies any chest pain, pressure, or tightness, lightheadedness, dizziness, palpitations. Telemetry remains sinus rhythm. EKG is still pending. Cardiology has been consulted regarding non-ST elevation myocardial infarction (VA), most likely secondary to demand-mediated ischemia from septic shock due to right upper lobe pneumonia and chest wall abscess with adrenal crisis. OBJECTIVE: PHYSICAL EXAMINATION: VITAL SIGNS: Temperature 97.9, maximal temperature of 99.6 at midnight, pulse sinus rhythm, ventricular rate of 97, peak rate of 108, sinus. Input 3292, output 2350, +942. Currently on Levophed drip. Blood pressure 77/54, 91% on room air. GENERAL: Patient is awake, alert, oriented to person only. She is eating her breakfast with no dizziness, sitting at 90 degrees. Patient has no facial asymmetric. No icterus, no jaundice. No respiratory distress. Speaks in full sentences. No jugular venous distention (JVD) or thyromegaly. No cervical lymphadenopathy. LUNGS: Clear to auscultation. No wheezing, rales, or rhonchi. Air entry is equal bilaterally. HEART: S1, S2, sinus rhythm. Episodes of sinus tachycardia. No murmurs, rubs, or gallops. SKIN: Chest wall with erythema, purulent drainage . ABDOMEN: Soft, nontender, nondistended. Positive bowel sounds. No rebound or guarding. EXTREMITIES: No cyanosis or clubbing. No pitting edema. Current weight is 45.5 kg, previous weight of 43.3 kg. LABORATORY DATA: White count 29, hemoglobin 15, hematocrit 46, platelet count 272. Sodium 140, potassium 3.8, chloride 104, bicarbonate 26, BUN 17, creatinine 0.69, glucose 244, calcium 8.5. AST 72, ALT 104, alkaline phosphatase 92. Total CK 139, MB fraction 19, troponin 3.43. TSH 0.918. Morning cortisol 70.2. Wound culture February 10 at 1250, pending. Blood culture February 10: No growth. Respiratory panel January 11 negative. Blood culture January 10: Staphylococcus warneri. Urine culture pending. Chest x-ray 02/11/2020: Pending official report. ASSESSMENT AND PLAN: This is a 64-year-old female with schizophrenia, currently with septic shock secondary to chest wall abscess, right upper lobe pneumonia, currently requiring vasopressor support with norepinephrine. CURRENT ISSUES: 1. Septic shock secondary to right upper lobe pneumonia, chest wall abscess, on broad-spectrum coverage with vancomycin and Zosyn. Awaiting wound culture result. On Levophed drip at 82.5 mL per hour. Intravenous (IV) fluids at 175 mL per hour. Urine output is adequate with no signs of fluid overload. On hydrocortisone 50 IV every 6 hours until patient is off vasopressor, and midodrine 2.5 three times a day. 2. Infected sebaceous cyst on anterior chest wall s/p incision and drainage by general surgery, Dr. Dee. White count is increased but most likely due to hydrocortisone. She has remained afebrile. Appears to be medically improved but still on vasopressor therapy. 3. Right upper lobe pneumonia, on vancomycin and Zosyn for possible hospital- acquired pneumonia. No sputum culture, as patient does not have any sputum production. Afebrile. White count is most likely due to hydrocortisone. Await blood culture results. 4. contaminated blood culture with Staphylococcus warneri. Blood culture most likely contaminant. Continue with broad-spectrum antibiotics for now until wound culture in the chest wall has been finalized. 5. Non-ST elevation myocardial infarction, most likely type 2, from demand- mediated ischemia from septic shock due to chest wall abscess and right upper lobe healthcare-associated pneumonia. Patient is currently on aspirin. Cardiology has been consulted, Dr. Germain. Will defer to cardiology whether the patient requires hospital transfer for coronary angiogram or if the patient can wait for outpatient stress testing. Echocardiogram is still pending. 6. Chronic obstructive pulmonary disease (COPD) exacerbation. Patient's lungs are currently clear. On hydrocortisone for adrenal crisis. 7. Adrenal crisis secondary to chest wall abscess and right upper lobe pneumonia, currently on Levophed drip, broad-spectrum antibiotics and hydrocortisone, midodrine. Continue with supportive care. 8. Tobacco abuse. Tobacco cessation counseling has been provided. On nicotine patch. 9. Schizophrenia. Seen by Dr. Monge, psychiatrist. Unable to determine capacity at this time. Inability to select a power of corporate attorney. Recommendations are for competency determination by judicial officer or guardianship appointed by the court. DISPOSITION: Continue with intensive care unit (ICU) care until patient is off Levophed. MTDD
[2020-02-12] MEDS: ATORVASTATIN 20 MG TAB PO SCH (19:36)
[2020-02-12] MEDS: GABAPENTIN 100 MG CAP PO SCH (19:37)
[2020-02-12] MEDS ORDERED: VANCOMYCIN HCL 500 MG in D5W MINI-BAG PLUS 100 ML IV ONE (23:00)
[2020-02-13] VITALS (62 sets, daily range): BP systolic 60–116; BP diastolic 39–79
[2020-02-13] MEDS: NOREPINEPHRINE BITARTRATE 8 MG in D5W 492 ML IV SCH ×3 (01:47→20:04)
[2020-02-13] MEDS: HYDROCORTISONE 100 MG/2 ML VIAL (J1720 PER 1) IV SCH ×2 (01:47→14:44)
[2020-02-13] MEDS: IPRATROPIUM 0.5MG/ALBUTEROL 2.5MG INH SOL UD 3ML (DUONEB) NEB SCH ×4 (02:00→19:40)
[2020-02-13] MEDS: NS 1,000 ML IV SCH (03:53)
[2020-02-13 05:00] LABS: HEMATOCRIT 43.6 % (36.0-47.0); HEMOGLOBIN 14.7 g/dl (12.0-15.5); MEAN CORPUSCULAR HEMOGLOBIN 31.5 pg (27.0-33.0); MEAN CORPUSCULAR HGB CONC 33.7 g/dl (32.0-36.5); MEAN CORPUSCULAR VOLUME 93.6 fl (80.0-96.0); PLATELET COUNT, AUTOMATED 253 10^3/uL (150-450); RED BLOOD COUNT 4.66 10^6/uL (4.00-5.40); WHITE BLOOD COUNT 24.9 10^3/uL (4.0-10.0)
[2020-02-13] MEDS: PIPERACILLIN/TAZOBACTAM SOD 3.375 GM in D5W MINI-BAG PLUS 50 ML IV SCH ×5 (06:00→17:44)
[2020-02-13 06:24] LABS: ALBUMIN 3.2 GM/DL (3.2-5.2); ALT/SGPT 66 U/L (12-78); BILIRUBIN,TOTAL 0.6 MG/DL (0.2-1.0); BLOOD UREA NITROGEN 6 MG/DL (7-18); CALCIUM LEVEL 8.5 MG/DL (8.8-10.2); CARBON DIOXIDE LEVEL 29 MEQ/L (21-32); CHLORIDE LEVEL 106 MEQ/L (98-107); CREATININE FOR GFR 0.53 MG/DL (0.55-1.30); GLOMERULAR FILTRATION RATE > 60.0 (>45); GLUCOSE, FASTING 170 MG/DL (70-100); POTASSIUM SERUM 2.8 MEQ/L (3.5-5.1); SODIUM LEVEL 143 MEQ/L (136-145); TOTAL PROTEIN 7.6 GM/DL (6.4-8.2); TROPONIN I 1.24 NG/ML (< 0.10)
[2020-02-13] MEDS: POTASSIUM CHLORIDE 10 MEQ SR TABLET PO SCH ×2 (06:47→08:39)
[2020-02-13 07:25] LABS: MAGNESIUM LEVEL 2.1 MG/DL (1.8-2.4)
[2020-02-13] MEDS: BUDESONIDE 0.5 MG/2 ML INHALATION SUSPENSION INH SCH ×2 (08:08→19:40)
[2020-02-13] MEDS: FOLIC ACID 1 MG TAB PO SCH (08:39)
[2020-02-13] MEDS: MULTIVITAMINS/MINERALS THERAP 1 TAB PO SCH (08:39)
[2020-02-13] MEDS: ACETAMINOPHEN 500 MG TAB PO SCH ×2 (08:40→21:22)
[2020-02-13] MEDS: MAGNESIUM OXIDE 400 MG TAB (MAG-OX) PO SCH ×2 (08:40→21:23)
[2020-02-13] MEDS: LACTOBACILLUS ACIDOPHILUS CAP (BACID) PO SCH (08:41)
[2020-02-13] MEDS: MIDODRINE 2.5 MG TAB PO SCH ×3 (08:41→16:32)
[2020-02-13] MEDS: THIAMINE 100 MG TAB PO SCH (08:41)
[2020-02-13] MEDS: ASPIRIN 81 MG ENTERIC TAB PO SCH (08:41)
[2020-02-13] MEDS: NICOTINE 14 MG/24 HR TRANSDERMAL TD SCH ×2 (08:41→08:58)
[2020-02-13] MEDS: ENOXAPARIN 40MG/0.4ML SYRINGE (J1650 PER 10MG) SC SCH ×2 (08:44→21:22)
[2020-02-13] MEDS: VANCOMYCIN HCL 1,000 MG, VIAL MATE ADAPTER 1 EACH in D5W 250 ML IV SCH ×2 (10:32→23:00)
--- NOTE | 2020-02-13 10:48 | ECHO ---
DATE OF PROCEDURE: 02/11/2020 Age: Gender: Female Height: 153 cm Weight: 43 kg REFERRING PHYSICIAN: Rodo Ceron MD INDICATION: Hypotension. MEASUREMENTS: IVS 0.9 LV 4.5 LVPW 0.9 RV 2.8 IVC 1.2 Mitral E wave velocity 90, A wave 100 E prime septal 8.8 E prime lateral 9.5 FINDINGS: The study is of rather limited technical quality with difficult visualization. Best quality windows are subcostal. The patient is in sinus rhythm with ventricular rate in the 90s while on Levophed drip. Left ventricle is normal size and overall has probably normal contractility based on limited views. I cannot rule out subtle wall motion abnormalities, but overall left ventricular systolic function is preserved. Right ventricle does not appear dilated; on the opposite it actually looks relatively small. Both atria appear normal. Aortic valve is mildly sclerotic, but has normal mobility. Mitral and tricuspid valves appear grossly normal based on limited views. Same applies for pulmonic valve. No pericardial effusion is noted. Inferior vena cava is of small caliber and appropriately collapses with inspiration indicative of probably low central venous pressure. Aortic root is normal. Aortic arch also appears normal. Abdominal aorta was not well visualized. Doppler interrogation reveals no significant aortic, mitral or tricuspid valvular disease. Mitral inflow pattern and tissue Doppler imaging of mitral annulus reveals grade 1 diastolic dysfunction. CONCLUSIONS: 1. Study is of limited technical quality, the patient is in sinus rhythm. 2. Normal LV size with grossly preserved LV systolic function and grade I diastolic dysfunction. 3. Right ventricle does not appear dilated. 4. No significant valvular disease 5. Likely low or normal central venous pressure. COMMENTS: No obvious explanation for hypotension. [facility]
[2020-02-13] MEDS: ATORVASTATIN 20 MG TAB PO SCH (21:22)
[2020-02-13] MEDS: GABAPENTIN 100 MG CAP PO SCH (21:22)
[2020-02-13] MEDS ORDERED: VANCOMYCIN HCL 1,000 MG, VIAL MATE ADAPTER 1 EACH in D5W 250 ML IV SCH (22:00)
[2020-02-14] VITALS (61 sets, daily range): BP systolic 59–153; BP diastolic 36–95
[2020-02-14] MEDS: PIPERACILLIN/TAZOBACTAM SOD 3.375 GM in D5W MINI-BAG PLUS 50 ML IV SCH ×4 (00:12→17:44)
[2020-02-14] MEDS: IPRATROPIUM 0.5MG/ALBUTEROL 2.5MG INH SOL UD 3ML (DUONEB) NEB SCH ×4 (01:28→19:40)
[2020-02-14] MEDS: HYDROCORTISONE 100 MG/2 ML VIAL (J1720 PER 1) IV SCH (01:43)
[2020-02-14] MEDS: NOREPINEPHRINE BITARTRATE 8 MG in D5W 492 ML IV SCH ×2 (05:00→13:29)
[2020-02-14 05:07] LABS: HEMATOCRIT 44.4 % (36.0-47.0); HEMOGLOBIN 14.7 g/dl (12.0-15.5); MEAN CORPUSCULAR HEMOGLOBIN 31.7 pg (27.0-33.0); MEAN CORPUSCULAR HGB CONC 33.1 g/dl (32.0-36.5); MEAN CORPUSCULAR VOLUME 95.9 fl (80.0-96.0); PLATELET COUNT, AUTOMATED 209 10^3/uL (150-450); RED BLOOD COUNT 4.63 10^6/uL (4.00-5.40); WHITE BLOOD COUNT 19.6 10^3/uL (4.0-10.0)
[2020-02-14 05:43] LABS: ALBUMIN 2.4 GM/DL (3.2-5.2); ALT/SGPT 48 U/L (12-78); BLOOD UREA NITROGEN 8 MG/DL (7-18); CALCIUM LEVEL 8.6 MG/DL (8.8-10.2); CARBON DIOXIDE LEVEL 24 MEQ/L (21-32); CHLORIDE LEVEL 105 MEQ/L (98-107); CREATININE FOR GFR 0.58 MG/DL (0.55-1.30); GLOMERULAR FILTRATION RATE > 60.0 (>45); GLUCOSE, FASTING 205 MG/DL (70-100); POTASSIUM SERUM 3.7 MEQ/L (3.5-5.1); SODIUM LEVEL 136 MEQ/L (136-145); TOTAL PROTEIN 6.9 GM/DL (6.4-8.2)
[2020-02-14] MEDS: VANCOMYCIN HCL 1,000 MG, VIAL MATE ADAPTER 1 EACH in D5W 250 ML IV SCH ×2 (07:17→15:22)
[2020-02-14] MEDS: BUDESONIDE 0.5 MG/2 ML INHALATION SUSPENSION INH SCH ×2 (08:10→19:40)
[2020-02-14] MEDS ORDERED: FLUBLOK(EGG FREE)(QUAD)INFLUENZA VACC 0.5ML SYRINGE 18YRS & OLDER IM SCH (09:00)
[2020-02-14] MEDS: NICOTINE 14 MG/24 HR TRANSDERMAL TD SCH (09:00)
[2020-02-14] MEDS: MULTIVITAMINS/MINERALS THERAP 1 TAB PO SCH (09:03)
[2020-02-14] MEDS: MIDODRINE 2.5 MG TAB PO SCH ×3 (09:03→15:56)
[2020-02-14] MEDS: ASPIRIN 81 MG ENTERIC TAB PO SCH (09:03)
[2020-02-14] MEDS: LACTOBACILLUS ACIDOPHILUS CAP (BACID) PO SCH (09:04)
[2020-02-14] MEDS: THIAMINE 100 MG TAB PO SCH (09:04)
[2020-02-14] MEDS: FOLIC ACID 1 MG TAB PO SCH (09:04)
[2020-02-14] MEDS: ACETAMINOPHEN 500 MG TAB PO SCH ×2 (09:04→20:09)
[2020-02-14] MEDS: ENOXAPARIN 40MG/0.4ML SYRINGE (J1650 PER 10MG) SC SCH ×2 (09:05→20:07)
[2020-02-14] MEDS: MAGNESIUM OXIDE 400 MG TAB (MAG-OX) PO SCH ×2 (09:05→20:08)
[2020-02-14] MEDS ORDERED: ISOVUE-370 76% 100ML VIAL As Ordered ONE (09:32)
--- NOTE | 2020-02-14 10:45 | REPVR ---
PROCEDURE INFORMATION: Exam: CT Angiography Chest With Contrast Exam date and time: 02/14/2020 10:03 AM Age: 64 years old Clinical indication: Other: Subclavian; Additional info: R/O subclavian steal TECHNIQUE: Imaging protocol: Computed tomographic angiography of the chest with intravenous contrast. 3D rendering (Not supervised by radiologist): MIP and/or 3D reconstructed images were created by the technologist. Radiation optimization: All CT scans at this facility use at least one of these dose optimization techniques: automated exposure control; mA and/or kV adjustment per patient size (includes targeted exams where dose is matched to clinical indication); or iterative reconstruction. Contrast material: ISOVUE 370; Contrast volume: 75 ml; Contrast route: INTRAVENOUS (IV); COMPARISON: CT ANGIO CHEST 03/19/2019 9:02 AM FINDINGS: Tubes, catheters and devices: There is a stable [id number] catheter. Pulmonary arteries: There is no pulmonary emboli. Aorta: Unremarkable. No aortic aneurysm. No aortic dissection. The left subclavian artery is unremarkable. Great vessels off aortic arch: The left subclavian artery demonstrates an area of 70-90 % narrowing with irregularity at its origin spanning 12 mm starting 5 mm its origin. There is a normal appearing left vertebral artery up to the level of the thyroid. The right subclavian artery may have an area of 50-70% narrowing but is partially obscured due to dense contrast in the venous system. There may greater narrowing on image 402/44 and 45. Lungs: There is a stable density with a small foreign body in the right upper lobe. Foreign bodies within a right upper lobe bronchus. There is a soft tissue density extending superiorly from hilum this is stable likely postoperative post radiation therapy changes. Pleural space: Unremarkable. No pneumothorax. No pleural effusion. Heart: Unremarkable. No cardiomegaly. No pericardial effusion. Lymph nodes: Unremarkable. No enlarged lymph nodes. Kidneys and ureters: There is stable left renal cyst. Bones/joints: Unremarkable. No acute fracture. Soft tissues: See "Lungs" finding. IMPRESSION: 1. Suspect severe stenosis involving both subclavian arteries the left near its origin the right near where the vertebral artery arises. Even though there is contrast within the left vertebral artery this could represent retrograde flow. 2. No pulmonary emboli. 3. Stable left upper lobe. Electronically signed by: Benton Boyle On 02/14/2020 10:44:50 AM
--- NOTE | 2020-02-14 19:37 | CR.PDOC ---
General Date of Consultation: Feb 14, 2020 Referring Provider: ALIN COHEN MD Attending Physician: ALIN COHEN MD Consultation REASON FOR CONSULTATION/CHIEF COMPLAINT: History of small cell lung cancer. HISTORY OF PRESENT ILLNESS: Ms. Nirali Simmons is a 64-year-old patient of Dr. Banuelos with history of small cell lung cancer diagnosed in 2016. She received carboplatin/etoposide chemoth erapy, which she completed 10/2016. This was followed by SBRT which was completed January 2017. Follow-up with Dr. Banuelos has not been very consistent because of patient noncompliance. She was last seen by Dr. Banuelos 01/2019. She had a telehealth video appointment with Dr. Banuelos 10/03/2019 with a plan for restaging. Before today's admission last CT abdomen and pelvis was in 03/2019 which showed no acute abnormalities. A CT chest, also on 03/2019 showed rib fractures with no other acute changes and a stable right upper lobe density. Ms. Nirali Simmons is currently admitted for confusion. CT angiography chest 02/14/2020 showed a stable small density in the right upper lobe lung and soft tissue density extending superiorly from hilum deemed to be stable when compared to a scan from 03/2019. She is currently in ICU and being managed for septic shock, chest wall abscess, right upper lobe pneumonia, adrenal crisis, non-STEMI demand mediated ischemia and schizophrenia. Medical oncology consulted for prognosis of small cell lung cancer. ALLERGIES: Please see below. HOME MEDICATIONS: Please see below. PAST MEDICAL HISTORY: Small cell lung cancer Adrenal insufficiency Schizophrenia PAST SURGICAL HISTORY: 1. Hysterectomy. 2. Appendectomy. 3. Tonsillectomy. FAMILY HISTORY: No history of cancer. SOCIAL HISTORY: Active smoker. Denies alcohol use. Review of systems: Reports good appetite, no weight loss. No fevers. No night sweats. Denies headaches, dizziness, changes in eyesight. Denies chest pain, shortness of breath. Reports a dry cough. Denies nausea, vomiting, abdominal pains, diarrhea, constipation. Denies urinary problems. Denies bone pains or arthritis. Denies any bleeding problems. PHYSICAL EXAMINATION: VITAL SIGNS: Please see below. GENERAL APPEARANCE: Lying comfortably in bed, not in distress. Answered simple questions appropriately. HEENT: Normocephalic, atraumatic, pinkish conjunctiva, anicteric. Moist oral mucosa RESPIRATORY: Fair energy. No rales, no rhonchi, no wheezes. CARDIOVASCULAR: S1, S2 regular. No murmur. No gallop. ABDOMEN: Soft, nontender, no guarding, no palpable masses. Positive bowel sounds. EXTREMITIES: No calf swelling, calf tenderness, no pedal edema. No cyanosis. NEUROLOGICAL: Alert. Moves upper and lower extremities spontaneously. LABORATORY DATA: Please see below. ASSESSMENT/PLAN: 64-year-old woman treated for limited stage small cell lung cancer in 2017. CT angiography chest study on this admission 02/14/2020 showed stable lung findings, specifically stable right upper lobe density and soft tissue density extending from hilum when compared to CT scan from 03/2019. It has been 3 years since she completed treatment for limited stage small cell lung cancer with most recent imaging study showing no disease progression. Life expectancy for this patient in terms of her small cell lung cancer likely exceeds 6 months. She needs a follow-up medical oncology appointment on discharge. Thank you for referring Ms. Nirali Simmons. Vital Signs/I&O Vital Signs Date Time Temp Pulse Resp B/P (MAP) Pulse Ox O2 Delivery O2 Flow Rate FiO2 02/14/20 18:45 112/53 02/14/20 18:00 84 22 94 Room Air 02/14/20 16:00 98.0 02/14/20 07:00 3.0 I&O- Last 24 Hours up to 6 AM 02/14/20 06:00 Intake Total 2952 ml Output Total 2677 ml Balance 275 ml Laboratory Data Labs 24H Laboratory Tests 2 02/13/20 21:11: Vancomycin Level Trough 10.2 02/14/20 04:46: Nucleated Red Blood Cells % (auto) 0.0, Anion Gap 7L, Glomerular Filtration Rate > 60.0, Calcium Level 8.6L, Total Bilirubin 1.0#, Aspartate Amino Transf (AST/SGOT) 23, Alanine Aminotransferase (ALT/SGPT) 48, Alkaline Phosphatase 75, Total Protein 6.9, Albumin 2.4#L, Albumin/Globulin Ratio 0.5L CBC/BMP Laboratory Tests 02/14/20 04:46 Microbiology Microbiology 02/12/20 Blood Culture - Preliminary, Resulted No Growth after 48 hours. All Specime... 02/12/20 Blood Culture - Preliminary, Resulted No Growth after 48 hours. All Specime... 02/11/20 Gram Stain - Final, Complete 02/11/20 Wound Culture - Final, Complete Staphylococcus Sp Coag Neg 02/11/20 Blood Culture - Preliminary, Resulted Staphylococcus Epidermidis 02/11/20 Blood Culture - Preliminary, Resulted No Growth after 72 hours. All specime... 02/07/20 Blood Culture - Final, Complete NO GROWTH AFTER 5 DAYS 02/07/20 Blood Culture - Final, Complete NO GROWTH AFTER 5 DAYS Allergies Coded Allergies: No Known Allergies (Unverified , 03/27/19) Home Medications No Active Prescriptions or Reported Meds ALEXUS ADAMS MD Feb 14, 2020 19:37
[2020-02-14] MEDS: ATORVASTATIN 20 MG TAB PO SCH (20:08)
[2020-02-14] MEDS: GABAPENTIN 100 MG CAP PO SCH (20:08)
[2020-02-14] MEDS ORDERED: VANCOMYCIN HCL 1,000 MG, VIAL MATE ADAPTER 1 EACH in D5W 250 ML IV SCH (23:00)
[2020-02-15] VITALS (13 sets, daily range): BP systolic 69–128; BP diastolic 45–80
[2020-02-15] MEDS: PIPERACILLIN/TAZOBACTAM SOD 3.375 GM in D5W MINI-BAG PLUS 50 ML IV SCH ×2 (00:35→05:56)
[2020-02-15] MEDS: NOREPINEPHRINE BITARTRATE 8 MG in D5W 492 ML IV SCH (00:52)
[2020-02-15] MEDS: IPRATROPIUM 0.5MG/ALBUTEROL 2.5MG INH SOL UD 3ML (DUONEB) NEB SCH ×2 (01:24→07:45)
[2020-02-15 04:25] LABS: HEMATOCRIT 40.4 % (36.0-47.0); HEMOGLOBIN 13.3 g/dl (12.0-15.5); MEAN CORPUSCULAR HEMOGLOBIN 32.1 pg (27.0-33.0); MEAN CORPUSCULAR HGB CONC 32.9 g/dl (32.0-36.5); MEAN CORPUSCULAR VOLUME 97.6 fl (80.0-96.0); PLATELET COUNT, AUTOMATED 179 10^3/uL (150-450); RED BLOOD COUNT 4.14 10^6/uL (4.00-5.40); WHITE BLOOD COUNT 16.3 10^3/uL (4.0-10.0)
[2020-02-15 04:38] LABS: ALBUMIN 2.2 GM/DL (3.2-5.2); ALT/SGPT 35 U/L (12-78); BILIRUBIN,TOTAL 1.4 MG/DL (0.2-1.0); BLOOD UREA NITROGEN 17 MG/DL (7-18); CALCIUM LEVEL 8.2 MG/DL (8.8-10.2); CARBON DIOXIDE LEVEL 26 MEQ/L (21-32); CHLORIDE LEVEL 103 MEQ/L (98-107); GLOMERULAR FILTRATION RATE > 60.0 (>45); GLUCOSE, FASTING 86 MG/DL (70-100); POTASSIUM SERUM 3.3 MEQ/L (3.5-5.1); SODIUM LEVEL 136 MEQ/L (136-145); TOTAL PROTEIN 6.1 GM/DL (6.4-8.2)
[2020-02-15] MEDS ORDERED: POTASSIUM CHLORIDE 10 MEQ SR TABLET PO ONE ×2 (05:15→07:30)
[2020-02-15] MEDS: BUDESONIDE 0.5 MG/2 ML INHALATION SUSPENSION INH SCH (07:45)
[2020-02-15] MEDS: MIDODRINE 2.5 MG TAB PO SCH (08:11)
[2020-02-15] MEDS: THIAMINE 100 MG TAB PO SCH (08:12)
[2020-02-15] MEDS: LACTOBACILLUS ACIDOPHILUS CAP (BACID) PO SCH (08:12)
[2020-02-15] MEDS: MULTIVITAMINS/MINERALS THERAP 1 TAB PO SCH (08:13)
[2020-02-15] MEDS: ASPIRIN 81 MG ENTERIC TAB PO SCH (08:13)
[2020-02-15] MEDS: FOLIC ACID 1 MG TAB PO SCH (08:13)
[2020-02-15] MEDS: MAGNESIUM OXIDE 400 MG TAB (MAG-OX) PO SCH (08:13)
[2020-02-15] MEDS: ACETAMINOPHEN 500 MG TAB PO SCH (08:16)
[2020-02-15] MEDS: NICOTINE 14 MG/24 HR TRANSDERMAL TD SCH (08:17)
[2020-02-15] MEDS ORDERED: THIA100TA PO (10:03)
[2020-02-15] MEDS ORDERED: MAG400TA PO (10:03)
[2020-02-15] MEDS ORDERED: ASPI81TAEC PO (10:03)
[2020-02-15] MEDS ORDERED: IPRA0.00 NEB (10:03)
[2020-02-15] MEDS ORDERED: ATOR1TAB21 PO (10:03)
[2020-02-15] MEDS ORDERED: GABA-1171 PO (10:03)
[2020-02-15] MEDS ORDERED: BUDE0.5S6 INH (10:03)
[2020-02-15] MEDS ORDERED: FOLI1TAB11 PO (10:03)
[2020-02-15] MEDS ORDERED: MIDO2.5T PO (10:03)
[2020-02-15] MEDS ORDERED: NICO14PA TD (10:03)
--- NOTE | 2020-02-15 11:52 | IPN ---
DATE: 02/13/2020 Mrs. Simmons had a relatively uneventful day yesterday. Her blood pressure remained quite low and she continued to be on pressors throughout the night, even though the dose was reduced slightly since yesterday, there were no significant arrhythmias. She continues to deny any chest pain or shortness of breath. Vital signs: Blood pressure 97/64 with heart rate in 90s and saturation 93% on room air. This was taken on right upper extremity, it turns out that the blood pressure in the left upper extremity is approximately 20 mm higher which is certainly encouraging. Fluid balance: She received yesterday over 9 liters of fluid and made about 6 liters of urine output, balance still positive about 3400. Weight, though, was recorded as actually lower than the day before at 40.8 kg, which again is probably impossible. She is alert and oriented. She answers questions with usually one or two words even though the conversation makes sense and she seems to be fully oriented. Her jugular venous pressure (JVP) does not look high. Lungs sound clear, I do not appreciate any wheezing or crackles. Heart exam reveals a regular rhythm, I do not appreciate gallop, rub, or murmur. Abdomen is soft, nontender. There is no peripheral edema. LABORATORIES: Sodium is 143, potassium 2.8, BUN 6, creatinine 0.5, and glucose 170. Troponin is down to 1.4. CBC: WBC count 24.9 thousand, hemoglobin 14.7, hematocrit 43.6, and platelet count 253,000. ECG is not appreciably changed from yesterday and reveals rather diffuse ST-T abnormalities that are not very prominent. ASSESSMENT AND PLAN: Mrs. Simmons is a 64-year-old female who has a history of schizophrenia, she is also a long-term smoker and has likely underlying chronic obstructive pulmonary disease (COPD), who presented with severe drop in blood pressure, the etiology of which is somewhat mysterious at this point. In spite of blood pressure being recorded at times in 60s she never lost consciousness and it was remarkably well-tolerated, she was relatively asymptomatic. There is significant asymmetry in her blood pressure recordings so it is possible that we actually were recording from right upper extremity that was not adequately supplied and she might have, for example, subclavian stenosis because the blood pressure reading in the left upper extremity is higher, even though still relatively low, but nevertheless, hopefully, if we follow the tracing from the left upper extremity it may allow us to wean her off pressors a little more precipitously. The reason for my involvement was the fact that her troponin became elevated and she had fairly subtle nonspecific repolarization abnormalities on EKG, she never had any chest discomfort, but she certainly had a myocardial infarction, whether it is type 1 or type 2 is not completely clear to me. But, she certainly has risk factors for vascular disease and considerably has underlying coronary artery disease (CAD). So far, we certainly could not have administered any cardiac protective medicines with the exception of aspirin, Lovenox, and statin. I talked to her about cardiac catheterization, which would be my recommendation, and patient is adamantly against it. Even though I am not convinced that she understands the implications, she seems to be fully oriented and I believe competent to make decisions. Consequently, the plan is to continue medical management. I am going to discontinue her fluids today. I think that we should attempt to taper off her steroids also rather quickly as with cortisol level being actually elevated I do not believe that she has any evidence that she is adrenally deficient. I am going to leave midodrine on for the time being. We will see whether we can get her off Levophed and then we can make determination whether she indeed needs this medication in the long run or not. SHALA
--- NOTE | 2020-02-15 11:53 | IPN ---
DATE: 02/13/2020 Patient denies any lightheadedness, dizziness, chest pain, pressure, tightness, or shortness of breath. She is still on Levophed but it has been decreased from 22 to 10 mcg. This morning is agreeable to doing a coronary angiogram as recommended by cardiology. Patients daughter, Bety Adams, also agrees . OBJECTIVE: PHYSICAL EXAMINATION: Vital signs: Temperature 98.2, pulse 92, sinus rhythm, respiratory rate 20, blood pressure 97/64 on Levophed 10 mcg, 93% on room air. Generally: Awake, alert, oriented to person, place, and time, answering questions appropriately. No conversational dyspnea. No pallor, icterus, or jaundice. No use of respiratory accessory muscles or conversational dyspnea. No jugular venous distension (JVD), thyromegaly, no cervical lymphadenopathy. Appears older than her stated age. Lungs: Diminished. Heart: S1, S2, sinus rhythm. Abdomen: Soft, nontender, nondistended. Positive bowel sounds. Extremities: No cyanosis or clubbing. LABORATORY DATA: White count 24.9, hemoglobin 14, hematocrit 43, platelet count 253, sodium 143, potassium 2.8, chloride 106, bicarbonate 29, BUN 6, creatinine 0.53, glucose of 170, magnesium of 2.1, troponin 1.24. HOSPITAL MEDICATIONS: - hydrocortisone 25 mg IV every 12 hours - Levophed drip - Lipitor - Lovenox - vancomycin - aspirin - Zosyn - multivitamin - thiamine - folic acid - nicotine patch - Bacid - midodrine - Mag-Ox - acetaminophen - gabapentin - budesonide - DuoNeb - milk of magnesium - albuterol ASSESSMENT AND PLAN: This is a 64-year-old with schizophrenia found to have a chest wall abscess and septic chock, right upper lobe pneumonia requiring Levophed drip. CURRENT ISSUES: 1. Septic shock secondary to right upper lobe pneumonia and infected pilonidal cyst on anterior chest Currently on vancomycin and Zosyn with Staphylococcus warneri on blood culture. On Levophed drip titrated down to 10 mcg. Still on IV fluids. Urine output is adequate. Once off vasopressor therapy may be transferred to progressive care unit (PCU). At this time, hydrocortisone will be decreased. 2. infected pilonidal cyst on anterior chest wall s/p incision and drainage t by general surgeon Dr. Dee. Patient may have steroid-induced leukocytosis. She remains afebrile and clinically improved. Still on vasopressor therapy which we are titrating down. 3. Right upper lobe pneumonia. On Zosyn and vancomycin. No sputum culture. Contaminated blood culture with Staphylococcus warneri. Continue with current management for now until white count is normal. 4. Non-ST elevation myocardial infarction ([place]). Most likely due to septic shock, chest wall abscess, and right upper lobe healthcare-associated pneumonia. On vancomycin. Currently on aspirin. Patient and patients health care proxy, who is the daughter, are both agreeable to going to [facility] for coronary angiogram. Defer to Dr. Germain. Echo has been reviewed. 5. Chronic obstructive pulmonary disease (COPD) with diminished breath sounds but no wheezing. 6. Tobacco abuse on nicotine patch. 7. Schizophrenia. Unable to determine capacity. Health care proxy has been involved in decision making for her medical care. DISPOSITION: Once patient is off vasopressor therapy and stable, may transfer to [facility] for coronary angiogram. SHALA
--- NOTE | 2020-02-15 11:55 | IPN ---
DATE: 02/14/2020 Yesterday there was some new development in Mrs. Simmons's plan. When I talked to her in the morning, she adamantly refused any consideration of angiography and potential cardiac interventions in [place], but apparently after Dr. Kimball talked to her later in the day and then her daughter got involved. The patient changed her mind, and now she says that if it is felt appropriate, she would be willing to proceed with intervention, including open heart surgery should it come to it. At the same time, though, her affect is unchanged, and I am not quite convinced that she truly understands the implications of her answers. Otherwise, she did not have any significant medical events short of significant fluctuation of blood pressure. Initially yesterday we discovered that her left upper extremity blood pressure is higher than her right upper extremity blood pressure, approximately 15 mm difference in systolic pressures, but even while measuring blood pressure in left upper extremity, she was quite hypotensive and eventually was started on even higher doses of Levophed with some fluctuation of dosing overnight. She denies any chest pain. She denies any shortness of breath, and there have not been any additional significant events. This morning, her blood pressure is 80/50 when measured in left upper extremity, but it was 150 when we measured it in left lower extremity when patient was lying, making it suspicious that she might have actually bilateral subclavian artery stenosis. If this is proven with repeated measurements, then we will have to investigate it in this regard. Heart rate remains in 80s, saturation 98% on 3 liters. Her fluid balance yesterday was about 800 negative. She received about 3.5 liters of fluid and put out about 4200 mL of urine. Weight is recorded as 43.5 kg. She is alert and oriented and for the most part appropriate, even though her answers are very brief, and she certainly lacks any affect. Her jugular venous pressure (JVP) is not high. Lungs are reasonably clear. I do not appreciate any murmur, gallop, or rub. The incision after drainage of sebaceous cyst on her left anterior chest has some slight redness around but no obvious drainage. Abdomen is soft. No tenderness. Extremities are free of edema. She has palpable pulses in all four extremities. Neurologically, no obvious focal deficit. LABORATORY DATA: WBC count 19.6, hematocrit 14.7, hematocrit 44, platelet count 209,000. Basic metabolic panel is normal but for glucose 205. ASSESSMENT AND PLAN: Mrs. Simmons is a rather complicated case. She is a 64-year-old female who has a history of small-cell lung cancer from 2017, who underwent chemotherapy and radiation therapy, and it is unclear whether she has any residual disease or not. Now she presented with episodes of severe hypotension. At the same, though, even though she was markedly hypotensive, she did not have any obvious clinical symptoms to go with it. My initial suspicion was that she has subclavian artery stenosis on the right, because most of the measurements were done on right upper extremity, but the extremity difference compared to left side is relatively small. But today we measured BP also in lower extremities, and to my surprise there was dramatic difference, raising suspicion that she might have bilateral subclavian artery stenosis. We will have to do CT angiography looking into this issue, because this needs to be confirmed or ruled out. I talked to her again about her cardiac condition, because she clearly suffered non-ST elevation myocardial infarction (NSTEMI), even though she never had any chest discomfort. She tells me today that she is willing to undergo further testing. Unfortunately, though, I cannot imagine her undergoing open heart surgery until we have a better idea about condition of her lung cancer. Looking in the computer, she has not had any CT of the chest for almost a year. I am also very reluctant to transfer her, because her mental status when her answers change day to day, she apparently refused the staff to even change her dressing of her thoracic incision wound, which certainly would create significant complications. My general preference would be to treat her conservatively. Especially if we can wean her off Levophed going by blood pressures on lower extremities, then we probably can locally obtain CT angiography of the chest that would allow us to evaluate not only the vasculature of the subclavian artery and aortic arch but also would give us an idea whether there is any evidence for her lung cancer recurrence. Then we can make the ultimate decision about invasive versus conservative management. Otherwise, from cardiac perspective, she has been on aspirin and Lovenox. She is on high-dose statin, and I will leave this unchanged for foreseeable future. [facility]
--- NOTE | 2020-02-15 11:57 | IPN ---
DATE: 02/14/2020 SUBJECTIVE: Patient denies any chest pain, pressure, or tightness, shortness of breath, palpitations, lightheadedness, or dizziness. She remains on Levophed drip increased to 16 mcg overnight; however, she was found to have different blood pressure in the upper and lower extremities and bilaterally with concerns for subclavian steal and severe atherosclerosis and otherwise perfusing well, able to speak with full sentences with no dizziness, lightheadedness, or confusion. Patient is afebrile. No complaints of cough or chills. OBJECTIVE: PHYSICAL EXAMINATION: VITAL SIGNS: Temperature 98.2, maximum temperature of 99.3, pulse 100, sinus rhythm, respiratory rate 24, blood pressure 143/69, 92% on room air. GENERAL: Patient is awake, alert, oriented to person, place, and time. No respiratory distress. No use of respiratory accessory muscles. Patient is appropriate. No jugular venous distention (JVD) or thyromegaly. LUNGS: Clear to auscultation. No wheezing or rales. HEART: S1, S2, sinus rhythm. Sinus tachycardia. ABDOMEN: Soft, nontender, nondistended. Positive bowel sounds. EXTREMITIES: No cyanosis or clubbing. LABORATORY DATA: White count 19.6, hemoglobin 14, hematocrit 44, platelet count 209. Sodium 136, potassium 3.7, chloride 105, bicarbonate 24, BUN 8, creatinine 0.58, glucose 205. Blood culture negative. Wound culture: Coagulase-negative Staphylococcus with cultures Staphylococcus epidermis and Staphylococcus warneri. ASSESSMENT AND PLAN: This is a 64-year-old female with prior history of small- cell lung cancer diagnosed in 2017. follows at the [facility]. Stage I, T2N0M0, limited stage small-cell lung cancer with right upper lobe, status post carboplatin/etoposide, four cycles, followed by stereotactic body radiation therapy (SBRT) to residual 1.4 cm right upper lobe tumor, completed January 2017 and lost to followup in September [address] showing a large spiculated right upper lobe lesion extending to the right hilus with no change versus 07/17/2018 on non-contrast chest CT. Admitted 01/12/2020 due to confusion. Was found to have a chest wall abscess, which was surgically drained. Culture showed coagulase-negative staphylococcus complicated by non-ST elevation myocardial infarction (PR), septic shock, requiring Levophed drip. Was found to have bilateral subclavian steal syndrome. Active issues are as follows: 1. Pneumonia and infected pilonidal cyst on anterior chest s/p incision and drainage by general surgery. Currently on vancomycin and Zosyn. White count still elevated but most likely due to Decadron. Still on Levophed drip but most likely erroneous due to subclavian steal. Blood cultures are contaminated with Staphylococcus warneri and Staphylococcus epidermidis. 2. Non-ST elevation PR. Patient has subclavian steal noted on CT angiogram chest concerning for coronary artery disease with profuse blockages. Therefore, recommendations are to go to [facility] for coronary angiogram. Prognosis for the lung cancer appears to be favorable according to Dr. Yelena Molina, who will see the patient in consult today. 3. History of stage I small-cell lung cancer status post chemotherapy. Dr. Molina will place a consult this evening. Patient appears to have good overall prognosis, since the disease is not metastatic and appears to have been limited and treated well without any new increased nodules. 4. Hypotension due to subclavian steal versus sepsis. At this time, patient's cortisol is normal. Unlikely to have been adrenally insufficient. 5. Electrolyte abnormalities with low potassium, resolved after supplementation. 6. Right upper lobe pneumonia, on vancomycin and Zosyn. No sputum culture production. Complete a 7-day course then discontinue. 7. History of schizophrenia. Daughter is the healthcare proxy. DISPOSITION: Patient appears to have good overall prognosis from the oncology standpoint. Once she is off the Levophed drip, transfer to [facility] for coronary angiogram, stent versus coronary artery bypass graft (CABG). [facility]
[2020-02-17 19:54] LABS: AMORPHOUS SEDIMENT SMALL (NEGATIVE); APPEARANCE, URINE CLOUDY (CLEAR); BACTERIA, URINE AUTO 1+ (NEGATIVE); BILIRUBIN, URINE AUTO NEGATIVE (NEGATIVE); BLOOD, URINE BLOOD NEGATIVE (NEGATIVE); COLOR, URINE YELLOW (YELLOW); GLUCOSE, URINE (UA) AUTO NEGATIVE (NEGATIVE); KETONE, URINE AUTO NEGATIVE (NEGATIVE); LEUKOCYTE ESTERASE, URINE AUTO NEGATIVE (NEGATIVE); NITRITE, URINE AUTO NEGATIVE (NEGATIVE); PROTEIN, URINE AUTO NEGATIVE (NEGATIVE); RBC, URINE AUTO 40 /HPF (0-3); SQUAMOUS EPITHELIAL CELL UR AU 1 /HPF (0-6); WBC, URINE AUTO 4 /HPF (0-3)
--- NOTE | 2020-02-28 15:34 | ECGEPIP ---
SINUS RHYTHM MIGUELANGEL SEE SCANNED DOWNTIME REPORT MTDD
[2020-03-03 11:00] LABS: BASO % 0.3 % (0.0-1.0); HEMOGLOBIN 16.7 g/dl (12.0-15.5); LYMPH # 1.1 10^3/uL (1.5-5.0); LYMPH % 14.5 % (24.0-44.0); MEAN CORPUSCULAR HEMOGLOBIN 32.4 pg (27.0-33.0); MEAN CORPUSCULAR HGB CONC 33.4 g/dl (32.0-36.5); MEAN CORPUSCULAR VOLUME 96.9 fl (80.0-96.0); MONO # 0.3 10^3/uL (0.0-0.8); MONO % 3.4 % (0.0-5.0); NEUTROPHILS # 6.3 10^3/uL (1.5-8.5); NEUTROPHILS % 81.3 % (36.0-66.0); PLATELET COUNT, AUTOMATED 184 10^3/uL (150-450); RED BLOOD COUNT 5.16 10^6/uL (4.00-5.40); WHITE BLOOD COUNT 7.7 10^3/uL (4.0-10.0)
[2020-03-04 06:52] LABS: HEMATOCRIT 43.7 % (36.0-47.0); HEMOGLOBIN 14.8 g/dl (12.0-15.5); MEAN CORPUSCULAR HGB CONC 33.9 g/dl (32.0-36.5); MEAN CORPUSCULAR VOLUME 94.6 fl (80.0-96.0); PLATELET COUNT, AUTOMATED 159 10^3/uL (150-450); RED BLOOD COUNT 4.62 10^6/uL (4.00-5.40); WHITE BLOOD COUNT 16.1 10^3/uL (4.0-10.0)
--- NOTE | 2020-03-04 10:37 | ECGEPIP ---
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
--- NOTE | 2020-03-04 10:49 | ECGEPIP ---
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
--- NOTE | 2020-03-04 12:11 | ECGEPIP ---
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
[2020-03-04 16:53] LABS: HEMOGLOBIN 15.1 g/dl (12.0-15.5); MEAN CORPUSCULAR HEMOGLOBIN 31.6 pg (27.0-33.0); MEAN CORPUSCULAR HGB CONC 33.6 g/dl (32.0-36.5); MEAN CORPUSCULAR VOLUME 94.1 fl (80.0-96.0); PLATELET COUNT, AUTOMATED 177 10^3/uL (150-450); RED BLOOD COUNT 4.78 10^6/uL (4.00-5.40); WHITE BLOOD COUNT 14.4 10^3/uL (4.0-10.0)
--- NOTE | 2020-03-05 10:44 | RO ---
DATE OF OPERATION: 02/11/2020. PREOPERATIVE DIAGNOSIS: Subcutaneous abscess mid chest. POSTOPERATIVE DIAGNOSIS: Infected sebaceous cyst in the mid chest. PROCEDURE: Incision and drainage and removing of abscess, sebaceous cyst mid chest area. SURGEON: Clint Dee MD ANESTHESIA: Local anesthesia with 1% Lidocaine. SPECIMENS: None. ESTIMATED BLOOD LOSS: Minimal. FINDINGS: There is semisolid material contained within the cyst cavity, consistent with sebaceous cyst. Un-deep of the skin and debriding of the capsule performed, 1/4 inch Xeroform gauze used to pack the wound. DESCRIPTION OF PROCEDURE: Procedure was done at the bedside. Consent was obtained from the patient. The mid chest was prepped and draped with Betadine. Sterile drapes were placed. Roughly about 3 x 1 cm area of mildly indurated purplishly discolored skin and underlying cyst is noted with a small amount of bloody drainage. Not much surrounding skin cellulitis is noted. The surrounding subcutaneous tissue and skin was infiltrated with 1% Lidocaine. A cruciate skin incision to remove the thinned out purplish skin covering of the cyst was done. There is small amount of purulent material underneath. There is retained sebum or semisolid cyst material noted, and this was removed. There is a cyst capsule underneath, which was debrided sharply with 15 blade scalpel. After hemostasis, this was then packed with 1/4 inch Xeroform gauze covered with sterile gauze dressing. Patient tolerated the procedure well. [facility]
[2020-03-06 12:06] LABS: BASO # 0.1 10^3/uL (0.0-0.2); BASO % 0.6 % (0.0-1.0); EOS # 0.2 10^3/uL (0.0-0.5); HEMATOCRIT 51.8 % (36.0-47.0); HEMOGLOBIN 17.7 g/dl (12.0-15.5); LYMPH # 2.4 10^3/uL (1.5-5.0); LYMPH % 16.7 % (24.0-44.0); MEAN CORPUSCULAR HGB CONC 34.2 g/dl (32.0-36.5); MEAN CORPUSCULAR VOLUME 93.7 fl (80.0-96.0); MONO # 1.3 10^3/uL (0.0-0.8); MONO % 8.7 % (0.0-5.0); NEUTROPHILS # 10.4 10^3/uL (1.5-8.5); NEUTROPHILS % 72.5 % (36.0-66.0); PLATELET COUNT, AUTOMATED 170 10^3/uL (150-450); RED BLOOD COUNT 5.53 10^6/uL (4.00-5.40); WHITE BLOOD COUNT 14.4 10^3/uL (4.0-10.0)
[2020-03-07 14:49] LABS: HEMATOCRIT 46.5 % (36.0-47.0); HEMOGLOBIN 15.8 g/dl (12.0-15.5); MEAN CORPUSCULAR HEMOGLOBIN 31.5 pg (27.0-33.0); MEAN CORPUSCULAR VOLUME 92.8 fl (80.0-96.0); PLATELET COUNT, AUTOMATED 233 10^3/uL (150-450); RED BLOOD COUNT 5.01 10^6/uL (4.00-5.40); WHITE BLOOD COUNT 13.9 10^3/uL (4.0-10.0)
[2020-03-07 18:42] LABS: HEMATOCRIT 45.8 % (36.0-47.0); HEMOGLOBIN 15.4 g/dl (12.0-15.5); MEAN CORPUSCULAR HGB CONC 33.6 g/dl (32.0-36.5); MEAN CORPUSCULAR VOLUME 95.2 fl (80.0-96.0); PLATELET COUNT, AUTOMATED 262 10^3/uL (150-450); RED BLOOD COUNT 4.81 10^6/uL (4.00-5.40); WHITE BLOOD COUNT 14.6 10^3/uL (4.0-10.0)
[2020-03-10 01:02] LABS: HEMATOCRIT 38.7 % (36.0-47.0); HEMOGLOBIN 12.9 g/dl (12.0-15.5); MEAN CORPUSCULAR HEMOGLOBIN 32.3 pg (27.0-33.0); MEAN CORPUSCULAR HGB CONC 33.3 g/dl (32.0-36.5); PLATELET COUNT, AUTOMATED 248 10^3/uL (150-450); RED BLOOD COUNT 3.99 10^6/uL (4.00-5.40)
--- NOTE | 2020-03-11 08:13 | REP ---
PORTABLE CHEST X-RAY CLINICAL: Status post intubation. COMPARISON: 02/09/2020 at 0402 pm. FINDINGS: Endotracheal tube 2.5 cm above the radha. Mediastinum and cardiac silhouette stable. Lung garcia demonstrate diffuse chronic interstitial changes. Subtle superimposed right basilar atelectasis cannot be excluded. No focal consolidation. No definite effusion. No pneumothorax. Skeletal structures are intact. IMPRESSION: Endotracheal tube in satisfactory position. Diffuse chronic interstitial changes. Subtle superimposed right basilar atelectasis cannot be excluded. MTDD
--- NOTE | 2020-03-11 10:38 | DSES ---
DATE OF ADMISSION: 01/29/2020. DATE OF DISCHARGE: 02/15/2020. Transfer to [facility] due to coronary angiogram for non-ST elevation myocardial infarction. CONSULTANTS DURING THIS ADMISSION: 1. Private Pilot: Dr. Keila Germain. 2. General Surgeon: Dr. Clint Dee. 3. Medical Oncologist: Dr. Yelena Molina. PRIMARY DISCHARGE DIAGNOSES: 1. Sepsis secondary to chest wall abscess right upper lobe pneumonia. 2. Non-ST elevation myocardial infarction. 3. History of small-cell lung cancer stage 1 limited with stable disease since 2019. 4. Bilateral subclavian artery stenosis. 5. Septic shock. 6. Tobacco abuse. 7. Alcohol abuse. 8. Schizophrenia. DISCHARGE MEDICATIONS: 1. Aspirin 81 mg daily. 2. Atorvastatin 40 mg q.h.s. 3. Budesonide 0.5 inhaled routinely b.i.d. 4. Folic acid 1 mg daily 5. Gabapentin 100 q.h.s. 6. Combivent 3 mL routinely every 6 hours. 7. Magnesium oxide 400 b.i.d. 8. Midodrine 2.5 t.i.d. 9. Nicotine patch one patch 100 mg daily. HOSPITAL COURSE: This is a 64-year-old female admitted January 11 due to hypotension, pneumonia and chest wall abscess due to infected sebaceous cyst, was hypertensive and required Levophed intravenous drip in the ICU. Patient was started on I.V. Vancomycin and Zosyn. Blood cultures were negative. Chest wall abscess was drained with incision and drainage by general surgeon, Dr. Dee. Blood cultures remained negative. She remained afebrile, but required vasopressor therapy. Patient was initially started on intravenous Hydrocortisone, but cortisol level was 70.2. Cardiac markers obtained due to complaints of chest pain, peeked at 3.[address] Germain was consulted for help in management of a non-ST elevation myocardial infarction. She was started on aspirin, Lipitor and Lovenox 1 mg/kg subcutaneously every 12 hours. Due to prior history of smoking, she was kept on nicotine patch and due to alcohol use was put on Thiamine and folic acid. Patient was weaned off the Levophed drip. Despite being on Vanco and Zosyn, she required vasopressor therapy until 02/14/2020 at 11:00 p.m., for which the patient had maintained her systolic pressure in the 120s. Evaluation included CT chest, which showed subclavian steal with bilateral subclavian artery stenosis, suspected to be severe due to prior history of small-cell lung cancer limited disease stage 1. Medical oncologist, Dr. Molina, was consulted for prognosis with life expectancy expected to be greater than 6 months. Private Pilot, Dr. Germain, recommended transfer to [place] for coronary angiogram with possible stent placement and to evaluate for CABG if needed. Patient remained stable off vasopressor therapy. White count decreased with decreasing doses of hydrocortisone to 16 from peak of 24.9. She remained afebrile. PHYSICAL EXAMINATION ON DISCHARGE: VITALS: Temperature 97.5, pulse 92, respiratory rate 21, blood pressure 124/56, and 93% on room air. GENERAL: Patient is awake, alert, and oriented to person, place, and time. Appears her stated age. HEENT: No JVD or thyromegaly. LUNGS: Clear to auscultation. No wheezing or rales. HEART: S1, S2, sinus rhythm. ABDOMEN: Soft, nontender, and nondistended. Positive bowel sounds. EXTREMITIES: No cyanosis, clubbing, or pitting edema. LABORATORY DATA: White count 16.3; previous white count 19.6, hemoglobin 13, hematocrit 40, platelet count 179,000. Sodium 136, potassium 3.3, chloride 103, bicarb 26, BUN 17, creatinine 0.7, glucose 86. Total bilirubin 1.4, magnesium 2.1. BLOOD CULTURE RESULTS: Staph epidermidis. Coag negative Staph. Repeat blood culture 02/12/2020; no growth after 48 hours. IMAGING STUDIES: CT chest/angio on 02/14/2020 with severe stenosis bilateral subclavian artery, near its origin and near where the vertebral artery arises, even though there is contrast within the left vertebral artery, this could represent retrograde flow. No pulmonary embolism. Stable left upper lobe nodule. TIME SPENT ON DISCHARGE: 30 minutes. [facility]
--- NOTE | 2020-03-11 12:30 | ECGEPIP ---
SINUS RHYTHM POSSIBLE RIGHT ATRIAL ENLARGEMENT LEFT ATRIAL ENLARGEMENT POSSIBLE SEPTAL MYOCARDIAL INFARCTION , OF INDETERMINATE AGE ABNORMAL ECG NONSPECIFIC ST-T ABNORMALITY SEE SCANNED DOWNTIME REPORT MTDD
[2020-03-15 08:42] LABS: HEMATOCRIT 48.2 % (36.0-47.0); HEMOGLOBIN 16.3 g/dl (12.0-15.5); MEAN CORPUSCULAR HGB CONC 33.8 g/dl (32.0-36.5); MEAN CORPUSCULAR VOLUME 94.5 fl (80.0-96.0); PLATELET COUNT, AUTOMATED 192 10^3/uL (150-450); WHITE BLOOD COUNT 11.5 10^3/uL (4.0-10.0)
[2020-03-15 11:19] LABS: HEMATOCRIT 46.1 % (36.0-47.0); HEMOGLOBIN 15.6 g/dl (12.0-15.5); MEAN CORPUSCULAR HEMOGLOBIN 32.2 pg (27.0-33.0); MEAN CORPUSCULAR HGB CONC 33.8 g/dl (32.0-36.5); MEAN CORPUSCULAR VOLUME 95.1 fl (80.0-96.0); PLATELET COUNT, AUTOMATED 197 10^3/uL (150-450); RED BLOOD COUNT 4.85 10^6/uL (4.00-5.40); WHITE BLOOD COUNT 12.3 10^3/uL (4.0-10.0)
[2020-03-22 10:17] LABS: ALBUMIN 3.2 GM/DL (3.2-5.2); ALT/SGPT 16 U/L (12-78); BILIRUBIN,DIRECT 0.2 MG/DL (0.0-0.2); BILIRUBIN,TOTAL 0.9 MG/DL (0.2-1.0); BLOOD UREA NITROGEN 8 MG/DL (7-18); CALCIUM LEVEL 8.8 MG/DL (8.8-10.2); CARBON DIOXIDE LEVEL 33 MEQ/L (21-32); CHLORIDE LEVEL 93 MEQ/L (98-107); CK-MB VALUE MASS 1.7 NG/ML (<3.6); CPK CREATINE PHOSPHOKINASE 68 U/L (26-192); GLOMERULAR FILTRATION RATE > 60.0 (>45); GLUCOSE, FASTING 69 MG/DL (70-100); POTASSIUM SERUM 4.4 MEQ/L (3.5-5.1); SODIUM LEVEL 132 MEQ/L (136-145); TROPONIN I < 0.02 NG/ML (< 0.10)
[2020-03-30 11:13] LABS: BLOOD UREA NITROGEN 14 MG/DL (7-18); CALCIUM LEVEL 8.3 MG/DL (8.8-10.2); CARBON DIOXIDE LEVEL 29 MEQ/L (21-32); CHLORIDE LEVEL 98 MEQ/L (98-107); CREATININE FOR GFR 0.56 MG/DL (0.55-1.30); GLOMERULAR FILTRATION RATE > 60.0 (>45); GLUCOSE, FASTING 92 MG/DL (70-100); MAGNESIUM LEVEL 2.2 MG/DL (1.8-2.4); POTASSIUM SERUM 4.9 MEQ/L (3.5-5.1); SODIUM LEVEL 132 MEQ/L (136-145)
[2020-04-06 12:26] LABS: BLOOD UREA NITROGEN 12 MG/DL (7-18); CALCIUM LEVEL 7.9 MG/DL (8.8-10.2); CARBON DIOXIDE LEVEL 29 MEQ/L (21-32); CHLORIDE LEVEL 105 MEQ/L (98-107); CREATININE FOR GFR 0.46 MG/DL (0.55-1.30); GLOMERULAR FILTRATION RATE > 60.0 (>45); GLUCOSE, FASTING 147 MG/DL (70-100); POTASSIUM SERUM 4.4 MEQ/L (3.5-5.1); SODIUM LEVEL 138 MEQ/L (136-145)
[2020-04-07 09:46] LABS: BLOOD UREA NITROGEN 15 MG/DL (7-18); CALCIUM LEVEL 8.6 MG/DL (8.8-10.2); CARBON DIOXIDE LEVEL 28 MEQ/L (21-32); CHLORIDE LEVEL 99 MEQ/L (98-107); CREATININE FOR GFR 0.44 MG/DL (0.55-1.30); GLOMERULAR FILTRATION RATE > 60.0 (>45); GLUCOSE, FASTING 71 MG/DL (70-100); POTASSIUM SERUM 4.4 MEQ/L (3.5-5.1); SODIUM LEVEL 132 MEQ/L (136-145)
[2020-04-07 15:14] LABS: HEMATOCRIT 44.8 % (36.0-47.0); HEMOGLOBIN 15.3 g/dl (12.0-15.5); RED BLOOD COUNT 4.77 10^6/uL (4.00-5.40); WHITE BLOOD COUNT 13.9 10^3/uL (4.0-10.0)
[2020-04-07 15:15] LABS: MEAN CORPUSCULAR HEMOGLOBIN 32.1 pg (27.0-33.0); MEAN CORPUSCULAR HGB CONC 34.2 g/dl (32.0-36.5); MEAN CORPUSCULAR VOLUME 93.9 fl (80.0-96.0); PLATELET COUNT, AUTOMATED 277 10^3/uL (150-450)
[2020-04-07 16:16] LABS: BLOOD UREA NITROGEN 18 MG/DL (7-18); CALCIUM LEVEL 8.7 MG/DL (8.8-10.2); CARBON DIOXIDE LEVEL 32 MEQ/L (21-32); CHLORIDE LEVEL 99 MEQ/L (98-107); CREATININE FOR GFR 0.51 MG/DL (0.55-1.30); GLOMERULAR FILTRATION RATE > 60.0 (>45); GLUCOSE, FASTING 79 MG/DL (70-100); POTASSIUM SERUM 4.4 MEQ/L (3.5-5.1); SODIUM LEVEL 134 MEQ/L (136-145)
[2020-04-08 09:32] LABS: BLOOD UREA NITROGEN 9 MG/DL (7-18); CALCIUM LEVEL 8.1 MG/DL (8.8-10.2); CARBON DIOXIDE LEVEL 30 MEQ/L (21-32); CHLORIDE LEVEL 99 MEQ/L (98-107); CORTISOL AM 13.3 UG/DL (4.3-22.4); CREATININE FOR GFR 0.47 MG/DL (0.55-1.30); GLOMERULAR FILTRATION RATE > 60.0 (>45); GLUCOSE, FASTING 93 MG/DL (70-100); MAGNESIUM LEVEL 2.1 MG/DL (1.8-2.4); POTASSIUM SERUM 3.6 MEQ/L (3.5-5.1); SODIUM LEVEL 132 MEQ/L (136-145)
[2020-04-09 15:16] LABS: BLOOD UREA NITROGEN 19 MG/DL (7-18); CALCIUM LEVEL 8.6 MG/DL (8.8-10.2); CARBON DIOXIDE LEVEL 30 mmol/L (20-29); CHLORIDE LEVEL 99 MEQ/L (98-107); GLOMERULAR FILTRATION RATE > 60.0 (>45); GLUCOSE, FASTING 91 MG/DL (70-100); POTASSIUM SERUM 4.4 MEQ/L (3.5-5.1); SODIUM LEVEL 133 MEQ/L (136-145)
[2020-04-09 15:32] LABS: CORTISOL BASELINE 8.4 UG/DL (4.3-22.4)
[2020-04-10 11:32] LABS: BLOOD UREA NITROGEN 11 MG/DL (7-18); CALCIUM LEVEL 7.3 MG/DL (8.8-10.2); CARBON DIOXIDE LEVEL 32 MEQ/L (21-32); CHLORIDE LEVEL 99 MEQ/L (98-107); CORTISOL AM 7.3 UG/DL (4.3-22.4); CREATININE FOR GFR 0.42 MG/DL (0.55-1.30); GLOMERULAR FILTRATION RATE > 60.0 (>45); GLUCOSE, FASTING 98 MG/DL (70-100); MAGNESIUM LEVEL 1.8 MG/DL (1.8-2.4); POTASSIUM SERUM 2.9 MEQ/L (3.5-5.1); SODIUM LEVEL 136 MEQ/L (136-145)
[2020-04-13 07:48] LABS: BLOOD UREA NITROGEN 23 MG/DL (7-18); CALCIUM LEVEL 9.5 MG/DL (8.8-10.2); CARBON DIOXIDE LEVEL 29 MEQ/L (21-32); CHLORIDE LEVEL 100 MEQ/L (98-107); GLOMERULAR FILTRATION RATE > 60.0 (>45); GLUCOSE, FASTING 69 MG/DL (70-100); POTASSIUM SERUM 4.2 MEQ/L (3.5-5.1); SODIUM LEVEL 134 MEQ/L (136-145)
[2020-04-14 19:40] LABS: BLOOD UREA NITROGEN 12 MG/DL (7-18); CALCIUM LEVEL 9.2 MG/DL (8.8-10.2); CARBON DIOXIDE LEVEL 29 MEQ/L (21-32); CHLORIDE LEVEL 96 MEQ/L (98-107); CREATININE FOR GFR 0.44 MG/DL (0.55-1.30); GLOMERULAR FILTRATION RATE > 60.0 (>45); GLUCOSE, FASTING 79 MG/DL (70-100); POTASSIUM SERUM 4.2 MEQ/L (3.5-5.1); SODIUM LEVEL 132 MEQ/L (136-145)
[2020-04-14 23:13] LABS: BLOOD UREA NITROGEN 28 MG/DL (7-18); CARBON DIOXIDE LEVEL 29 MEQ/L (21-32); CHLORIDE LEVEL 103 MEQ/L (98-107); CREATININE FOR GFR 0.56 MG/DL (0.55-1.30); GLOMERULAR FILTRATION RATE > 60.0 (>45); GLUCOSE, FASTING 83 MG/DL (70-100); POTASSIUM SERUM 4.4 MEQ/L (3.5-5.1); SODIUM LEVEL 137 MEQ/L (136-145)
[2020-04-16 16:32] LABS: BLOOD UREA NITROGEN 30 MG/DL (7-18); CREATININE FOR GFR 0.62 MG/DL (0.55-1.30); GLOMERULAR FILTRATION RATE > 60.0 (>45); GLUCOSE, FASTING 100 MG/DL (70-100)
[2020-04-16 16:33] LABS: CALCIUM LEVEL 8.5 MG/DL (8.8-10.2); CARBON DIOXIDE LEVEL 30 mmol/L (20-29); CHLORIDE LEVEL 104 MEQ/L (98-107); POTASSIUM SERUM 4.4 MEQ/L (3.5-5.1); SODIUM LEVEL 139 MEQ/L (136-145)
[2020-04-20 10:34] LABS: BLOOD UREA NITROGEN 21 MG/DL (7-18); CALCIUM LEVEL 9.1 MG/DL (8.8-10.2); CARBON DIOXIDE LEVEL 30 MEQ/L (21-32); CHLORIDE LEVEL 102 MEQ/L (98-107); GLOMERULAR FILTRATION RATE > 60.0 (>45); GLUCOSE, FASTING 81 MG/DL (70-100); POTASSIUM SERUM 4.3 MEQ/L (3.5-5.1); SODIUM LEVEL 137 MEQ/L (136-145)
[2020-04-20 13:02] LABS: BLOOD UREA NITROGEN 25 MG/DL (7-18); CALCIUM LEVEL 9.2 MG/DL (8.8-10.2); CARBON DIOXIDE LEVEL 31 MEQ/L (21-32); CHLORIDE LEVEL 100 MEQ/L (98-107); GLOMERULAR FILTRATION RATE > 60.0 (>45); GLUCOSE, FASTING 76 MG/DL (70-100); POTASSIUM SERUM 4.1 MEQ/L (3.5-5.1); SODIUM LEVEL 135 MEQ/L (136-145)
== END 2020-02-15 11:50 | disposition short-term general hospital (02) | DRG 720 ==
LOC: M ED 15:09 → M MS5PR 01-12 01:14 → M ICU 02-11 11:04
PROVIDERS: ADMIT Internal Medicine; ATTEND Internal Medicine
PROC: 0JB60ZZ Excision of Chest Subcutaneous Tissue and Fascia, Open Approach (ICD-10-PCS; principal; 2020-02-11)
DX: A41.9 Sepsis, unspecified organism (principal); I21.A1 Myocardial infarction type 2; R65.21 Severe sepsis with septic shock; J18.9 Pneumonia, unspecified organism; I95.9 Hypotension, unspecified; E27.2 Addisonian crisis; F03.91 Unspecified dementia, unspecified severity, with behavioral disturbance; J44.0 Chronic obstructive pulmonary disease with (acute) lower respiratory infection; L02.213 Cutaneous abscess of chest wall; F20.9 Schizophrenia, unspecified; J44.1 Chronic obstructive pulmonary disease with (acute) exacerbation; G45.8 Other transient cerebral ischemic attacks and related syndromes; A09 Infectious gastroenteritis and colitis, unspecified; Z85.118 Personal history of other malignant neoplasm of bronchus and lung; Z92.21 Personal history of antineoplastic chemotherapy; F17.200 Nicotine dependence, unspecified, uncomplicated; L72.3 Sebaceous cyst; Z66 Do not resuscitate; Z92.3 Personal history of irradiation